=== PATIENT | male | born 1960 | race Two or more races ===

== ENCOUNTER 2024-03-03 07:00 | Outpatient (RCR) | payer MEDICAID, SELFPAY ==
[2024-02-09 08:55] LABS: Basophils % (Auto) 1 % (0-2.5); Eosinophils # (Auto) 0.1 Thou/mm3 (0.0-0.5); Eosinophils % (Auto) 1 % (0-10); Hematocrit 28.3 % (41.0-53.0); Hemoglobin 9.2 g/dL (13.5-16.0); Immature Granulocytes % (Auto) 0 % (0-0); Immature Granulocytes Auto 0.02 Thou/mm3 (0.00-0.00); Lymphocytes # (Auto) 0.8 Thou/mm3 (1.0-4.8); Lymphocytes % (Auto) 19 % (10-50); Mean Corpuscular HGB Conc 32.5 g/dl (31.0-37.0); Mean Corpuscular Volume 92 fL (80-100); Monocytes # (Auto) 0.4 Thou/mm3 (0.0-0.8); Monocytes % (Auto) 8 % (0-12); Neutrophils # (Auto) 3.2 Thou/mm3 (1.8-7.7); Neutrophils % (Auto) 71 % (37-80); Nucleated Red Blood Cell % 0 /100 WBC (0); RDW Standard Deviation 73.5 fL (35.1-43.9); Red Blood Count 3.07 Miln/mm3 (4.50-5.90); White Blood Count 4.5 Thou/mm3 (3.8-10.6)
[2024-02-09 09:02] LABS: Platelet Count 63 Thou/mm3 (140-440)
[2024-02-09 09:15] LABS: Alanine Aminotransferase 31 U/L (10-49); Albumin, Serum 4.2 gm/dL (3.4-4.8); Albumin/Globulin Ratio 1.6 (1.2-2.2); Alkaline Phosphatase 416 U/L (46-116); Anion Gap 8 (7-16); Aspartate Amino Transferase 22 U/L (0-34); BUN/Creatinine Ratio 19 Ratio (12-20); Bilirubin,Total 0.4 mg/dL (0.3-1.2); Blood Urea Nitrogen 21 mg/dL (9-23); Carbon Dioxide 23.3 mMol/L (20.0-31.0); Chloride 106 mMol/L (98-107); Creatinine (Component) 1.1 mg/dL (0.6-1.3); Globulin 2.7 gm/dL (2.3-3.5); Glucose 121 mg/dL (74-106); Osmolality,Calculated 277 (275-295); Sodium 137 mMol/L (136-145); Total Protein 6.9 gm/dL (5.7-8.2); eGFR > 60 See Note
[2024-02-09 10:26] LABS: Slide Review Platelets confirmed
[2024-02-09 10:44] LABS: LDH (Lactate Dehydrogenase) 153 U/L (120-246)
[2024-02-17 06:50] LABS: Haptoglobin* 186 mg/dL (43-212)
[2024-02-17 16:35] LABS: Basophils % (Auto) 1 % (0-2.5); Eosinophils # (Auto) 0.1 Thou/mm3 (0.0-0.5); Eosinophils % (Auto) 2 % (0-10); Hematocrit 29.4 % (41.0-53.0); Hemoglobin 9.4 g/dL (13.5-16.0); Immature Granulocytes % (Auto) 0 % (0-0); Immature Granulocytes Auto 0.01 Thou/mm3 (0.00-0.00); Lymphocytes % (Auto) 26 % (10-50); Mean Corpuscular Hemoglobin 30.4 pg (25.0-35.0); Mean Corpuscular Volume 95 fL (80-100); Monocytes # (Auto) 0.5 Thou/mm3 (0.0-0.8); Monocytes % (Auto) 13 % (0-12); Neutrophils # (Auto) 2.2 Thou/mm3 (1.8-7.7); Neutrophils % (Auto) 58 % (37-80); Nucleated Red Blood Cell % 0 /100 WBC (0); Platelet Count 192 Thou/mm3 (140-440); RDW Standard Deviation 78.8 fL (35.1-43.9); Red Blood Count 3.09 Miln/mm3 (4.50-5.90); White Blood Count 3.8 Thou/mm3 (3.8-10.6)
[2024-02-17 17:11] LABS: Alanine Aminotransferase 36 U/L (10-49); Albumin, Serum 4.3 gm/dL (3.4-4.8); Albumin/Globulin Ratio 1.6 (1.2-2.2); Alkaline Phosphatase 355 U/L (46-116); Anion Gap 5 (7-16); Aspartate Amino Transferase 30 U/L (0-34); BUN/Creatinine Ratio 17 Ratio (12-20); Bilirubin,Total 0.4 mg/dL (0.3-1.2); Blood Urea Nitrogen 17 mg/dL (9-23); Calcium 9.2 mg/dL (8.3-10.6); Calcium (Corrected) 9.2 mg/dL (8.5-10.1); Carbon Dioxide 24.6 mMol/L (20.0-31.0); Chloride 106 mMol/L (98-107); Globulin 2.7 gm/dL (2.3-3.5); Glucose 88 mg/dL (74-106); Osmolality,Calculated 272 (275-295); Potassium 4.4 mMol/L (3.4-5.1); Sodium 136 mMol/L (136-145); eGFR > 60 See Note
[2024-02-27 10:19] LABS: Basophils % (Auto) 0 % (0-2.5); Eosinophils # (Auto) 0.1 Thou/mm3 (0.0-0.5); Eosinophils % (Auto) 3 % (0-10); Hematocrit 30.7 % (41.0-53.0); Hemoglobin 10.1 g/dL (13.5-16.0); Immature Granulocytes % (Auto) 4 % (0-0); Immature Granulocytes Auto 0.17 Thou/mm3 (0.00-0.00); Lymphocytes % (Auto) 22 % (10-50); Mean Corpuscular HGB Conc 32.9 g/dl (31.0-37.0); Mean Corpuscular Hemoglobin 31.2 pg (25.0-35.0); Mean Corpuscular Volume 95 fL (80-100); Monocytes # (Auto) 0.9 Thou/mm3 (0.0-0.8); Monocytes % (Auto) 20 % (0-12); Neutrophils # (Auto) 2.3 Thou/mm3 (1.8-7.7); Neutrophils % (Auto) 50 % (37-80); Nucleated Red Blood Cell % 0 /100 WBC (0); Platelet Count 249 Thou/mm3 (140-440); RDW Standard Deviation 76.6 fL (35.1-43.9); Red Blood Count 3.24 Miln/mm3 (4.50-5.90); White Blood Count 4.5 Thou/mm3 (3.8-10.6)
[2024-02-27 10:50] LABS: Alanine Aminotransferase 55 U/L (10-49); Albumin, Serum 4.3 gm/dL (3.4-4.8); Albumin/Globulin Ratio 1.8 (1.2-2.2); Alkaline Phosphatase 324 U/L (46-116); Anion Gap 6 (7-16); Aspartate Amino Transferase 33 U/L (0-34); BUN/Creatinine Ratio 14 Ratio (12-20); Blood Urea Nitrogen 15 mg/dL (9-23); Calcium 9.2 mg/dL (8.3-10.6); Calcium (Corrected) 9.2 mg/dL (8.5-10.1); Carbon Dioxide 22.7 mMol/L (20.0-31.0); Chloride 108 mMol/L (98-107); Creatinine (Component) 1.1 mg/dL (0.6-1.3); Globulin 2.4 gm/dL (2.3-3.5); Glucose 118 mg/dL (74-106); Osmolality,Calculated 275 (275-295); Potassium 3.8 mMol/L (3.4-5.1); Sodium 137 mMol/L (136-145); Total Protein 6.7 gm/dL (5.7-8.2); eGFR > 60 See Note
[2024-02-27 14:48] LABS: Bilirubin,Total 0.4 mg/dL (0.3-1.2)
[2024-03-02 11:59] LABS: Basophils % (Auto) 1 % (0-2.5); Eosinophils # (Auto) 0.1 Thou/mm3 (0.0-0.5); Eosinophils % (Auto) 2 % (0-10); Hematocrit 30.3 % (41.0-53.0); Hemoglobin 9.9 g/dL (13.5-16.0); Immature Granulocytes % (Auto) 1 % (0-0); Immature Granulocytes Auto 0.02 Thou/mm3 (0.00-0.00); Lymphocytes # (Auto) 0.9 Thou/mm3 (1.0-4.8); Lymphocytes % (Auto) 26 % (10-50); Mean Corpuscular HGB Conc 32.7 g/dl (31.0-37.0); Mean Corpuscular Hemoglobin 31.4 pg (25.0-35.0); Mean Corpuscular Volume 96 fL (80-100); Monocytes # (Auto) 0.4 Thou/mm3 (0.0-0.8); Monocytes % (Auto) 12 % (0-12); Neutrophils % (Auto) 58 % (37-80); Nucleated Red Blood Cell % 0 /100 WBC (0); Platelet Count 218 Thou/mm3 (140-440); Red Blood Count 3.15 Miln/mm3 (4.50-5.90); White Blood Count 3.5 Thou/mm3 (3.8-10.6)
[2024-03-02 12:11] LABS: Alanine Aminotransferase 30 U/L (10-49); Albumin, Serum 4.2 gm/dL (3.4-4.8); Albumin/Globulin Ratio 1.7 (1.2-2.2); Alkaline Phosphatase 291 U/L (46-116); Anion Gap 8 (7-16); Aspartate Amino Transferase 17 U/L (0-34); BUN/Creatinine Ratio 18 Ratio (12-20); Bilirubin,Total 0.5 mg/dL (0.3-1.2); Blood Urea Nitrogen 22 mg/dL (9-23); Calcium 9.1 mg/dL (8.3-10.6); Calcium (Corrected) 9.1 mg/dL (8.5-10.1); Carbon Dioxide 23.9 mMol/L (20.0-31.0); Chloride 105 mMol/L (98-107); Creatinine (Component) 1.2 mg/dL (0.6-1.3); Globulin 2.5 gm/dL (2.3-3.5); Glucose 99 mg/dL (74-106); Osmolality,Calculated 277 (275-295); Sodium 137 mMol/L (136-145); Total Protein 6.7 gm/dL (5.7-8.2); eGFR > 60 See Note
== END 2024-03-06 23:59 | disposition home or self-care (01) ==
LOC: SCTC 07:00
PROVIDERS: PCP Family Medicine; Referring Provider Family Medicine; Visit Provider Internal Medicine Hematology & Oncology
DX: Z51.11 Encounter for antineoplastic chemotherapy (principal); C34.12 Malignant neoplasm of upper lobe, left bronchus or lung; C77.2 Secondary and unspecified malignant neoplasm of intra-abdominal lymph nodes; C79.51 Secondary malignant neoplasm of bone; C78.7 Secondary malignant neoplasm of liver and intrahepatic bile duct; R20.2 Paresthesia of skin; R20.0 Anesthesia of skin; Z92.3 Personal history of irradiation; Z87.891 Personal history of nicotine dependence
CPT/HCPCS: 36591; 80053; 83010; 83615; 85025; 96367; 96372; 96375; 96413; 96415; 96417; 99212; 99213; A4216; J0461; J1100; J1453; J1642; J2405; J3489; J3490; J7040; J7050; J9045; J9206; Q5101; A9270; G0463

== ENCOUNTER → 2024-03-10 | Outpatient (CLI) | payer MEDICAID, SELFPAY ==
--- NOTE | 2024-03-10 09:00 | XR_ITS ---
Examination: CT chest with intravenous contrast CT abdomen with intravenous contrast 2-D coronal and sagittal reconstructions Time of exam: March 10, 2024 0911 hours Comparison PET/CT scan December 04, 2023 INDICATIONS: Diagnosis lung cancer restaging post treatment, PET/CT scan December 04, 2023 10 mm 6 mm hypermetabolic masses left apex left mediastinal radiation reaction, numerous hypermetabolic liver lesions, right lobe posterior liver 28 mm anterior right liver 33 mm, 3.9 cm left adrenal mass, para-aortic pericaval lymphadenopathy CTDI: vol (mGy) : 7.55 DLP: (mGycm): 412 Technique: Multiple axial images of the chest, abdomen with intravenous contrast, 3.0 mm slice thickness. Images obtained post intravenous injection Isovue 370 60 cc. 2-D sagittal and coronal reconstructions. Low dose protocols were performed. One or more of the following dose reduction techniques were used; automated exposure control, adjustment of the mA and/or KV according to patient size, use of iterative reconstruction technique. Findings: No thoracic aortic aneurysmal dilatation No pulmonary artery emboli Radiation reaction left mediastinal region again depicted 2 mm pulmonary nodule left upper lobe Dilated bronchi in the left upper lobe 13 mm pulmonary nodule left lower lobe versus atelectasis, not seen on the prior study Trace pericardial effusion Numerous more prominent liver lesions compared to the PET CT scan Spleen is not enlarged No pancreatic mass There remains solid metastatic left adrenal mass No hydronephrosis Subcentimeter periaortic lymph nodes, the largest 8 mm Numerous osteoblastic metastatic lesions, most prominent S1, L4, L2, pathologic fracture L1, T11, T10 IMPRESSION: New 13 mm pulmonary nodule left lower lobe compared to PET CT scan July 22, 2023 Progression of liver metastatic lesions Left adrenal metastatic mass Subcentimeter periaortic lymph nodes Osteoblastic metastatic lesions including pathologic fracture L1, recommend CT scan lumbar spine without intravenous contrast follow-up
== END | disposition home or self-care (01) ==
PROVIDERS: Referring Provider Internal Medicine Hematology & Oncology; Visit Provider Internal Medicine Hematology & Oncology
DX: R91.1 Solitary pulmonary nodule (principal); C78.7 Secondary malignant neoplasm of liver and intrahepatic bile duct; C34.90 Malignant neoplasm of unspecified part of unspecified bronchus or lung
CPT/HCPCS: 71260; 74160; A4649; Q9967

== ENCOUNTER 2024-04-06 08:32 | Outpatient (RCR) | payer MEDICAID, SELFPAY ==
[2024-03-08 09:12] LABS: Basophils % (Auto) 1 % (0-2.5); Eosinophils # (Auto) 0.1 Thou/mm3 (0.0-0.5); Eosinophils % (Auto) 2 % (0-10); Hematocrit 31.7 % (41.0-53.0); Hemoglobin 10.7 g/dL (13.5-16.0); Immature Granulocytes % (Auto) 0 % (0-0); Immature Granulocytes Auto 0.01 Thou/mm3 (0.00-0.00); Lymphocytes % (Auto) 19 % (10-50); Mean Corpuscular HGB Conc 33.8 g/dl (31.0-37.0); Mean Corpuscular Hemoglobin 31.4 pg (25.0-35.0); Mean Corpuscular Volume 93 fL (80-100); Monocytes # (Auto) 0.3 Thou/mm3 (0.0-0.8); Monocytes % (Auto) 6 % (0-12); Neutrophils # (Auto) 3.7 Thou/mm3 (1.8-7.7); Neutrophils % (Auto) 72 % (37-80); Nucleated Red Blood Cell % 0 /100 WBC (0); Platelet Count 203 Thou/mm3 (140-440); RDW Standard Deviation 65.2 fL (35.1-43.9); Red Blood Count 3.41 Miln/mm3 (4.50-5.90); White Blood Count 5.2 Thou/mm3 (3.8-10.6)
[2024-03-08 09:31] LABS: Alanine Aminotransferase 35 U/L (10-49); Albumin, Serum 4.3 gm/dL (3.4-4.8); Albumin/Globulin Ratio 1.7 (1.2-2.2); Alkaline Phosphatase 253 U/L (46-116); Anion Gap 8 (7-16); Aspartate Amino Transferase 27 U/L (0-34); BUN/Creatinine Ratio 23 Ratio (12-20); Bilirubin,Total 0.5 mg/dL (0.3-1.2); Blood Urea Nitrogen 23 mg/dL (9-23); Calcium 9.6 mg/dL (8.3-10.6); Calcium (Corrected) 9.6 mg/dL (8.5-10.1); Carbon Dioxide 23.9 mMol/L (20.0-31.0); Chloride 105 mMol/L (98-107); Globulin 2.6 gm/dL (2.3-3.5); Glucose 157 mg/dL (74-106); Osmolality,Calculated 280 (275-295); Potassium 3.8 mMol/L (3.4-5.1); Sodium 137 mMol/L (136-145); Total Protein 6.9 gm/dL (5.7-8.2); eGFR > 60 See Note
[2024-03-10 14:24] LABS: Basophils % (Auto) 1 % (0-2.5); Eosinophils # (Auto) 0.1 Thou/mm3 (0.0-0.5); Eosinophils % (Auto) 2 % (0-10); Hemoglobin 9.8 g/dL (13.5-16.0); Immature Granulocytes % (Auto) 1 % (0-0); Immature Granulocytes Auto 0.02 Thou/mm3 (0.00-0.00); Lymphocytes # (Auto) 0.8 Thou/mm3 (1.0-4.8); Lymphocytes % (Auto) 20 % (10-50); Mean Corpuscular HGB Conc 33.8 g/dl (31.0-37.0); Mean Corpuscular Hemoglobin 31.5 pg (25.0-35.0); Mean Corpuscular Volume 93 fL (80-100); Monocytes # (Auto) 0.4 Thou/mm3 (0.0-0.8); Monocytes % (Auto) 10 % (0-12); Neutrophils # (Auto) 2.6 Thou/mm3 (1.8-7.7); Neutrophils % (Auto) 66 % (37-80); Nucleated Red Blood Cell % 0 /100 WBC (0); Platelet Count 203 Thou/mm3 (140-440); RDW Standard Deviation 66.4 fL (35.1-43.9); Red Blood Count 3.11 Miln/mm3 (4.50-5.90); White Blood Count 3.9 Thou/mm3 (3.8-10.6)
[2024-03-10 14:49] LABS: Alanine Aminotransferase 44 U/L (10-49); Albumin, Serum 4.3 gm/dL (3.4-4.8); Alkaline Phosphatase 236 U/L (46-116); Anion Gap 8 (7-16); Aspartate Amino Transferase 32 U/L (0-34); BUN/Creatinine Ratio 18 Ratio (12-20); Bilirubin,Total 0.4 mg/dL (0.3-1.2); Blood Urea Nitrogen 16 mg/dL (9-23); Calcium 8.6 mg/dL (8.3-10.6); Calcium (Corrected) 8.6 mg/dL (8.5-10.1); Carbon Dioxide 22.7 mMol/L (20.0-31.0); Chloride 103 mMol/L (98-107); Creatinine (Component) 0.9 mg/dL (0.6-1.3); Globulin 2.2 gm/dL (2.3-3.5); Glucose 80 mg/dL (74-106); Osmolality,Calculated 268 (275-295); Potassium 3.8 mMol/L (3.4-5.1); Sodium 134 mMol/L (136-145); Total Protein 6.5 gm/dL (5.7-8.2); eGFR > 60 See Note
[2024-03-15 11:10] LABS: Basophils # (Auto) 0.1 Thou/mm3 (0.0-0.2); Basophils % (Auto) 1 % (0-2.5); Eosinophils # (Auto) 0.2 Thou/mm3 (0.0-0.5); Eosinophils % (Auto) 2 % (0-10); Hematocrit 32.2 % (41.0-53.0); Hemoglobin 10.6 g/dL (13.5-16.0); Immature Granulocytes % (Auto) 1 % (0-0); Immature Granulocytes Auto 0.06 Thou/mm3 (0.00-0.00); Lymphocytes # (Auto) 0.9 Thou/mm3 (1.0-4.8); Lymphocytes % (Auto) 13 % (10-50); Mean Corpuscular HGB Conc 32.9 g/dl (31.0-37.0); Mean Corpuscular Volume 97 fL (80-100); Monocytes # (Auto) 0.4 Thou/mm3 (0.0-0.8); Monocytes % (Auto) 6 % (0-12); Neutrophils # (Auto) 5.6 Thou/mm3 (1.8-7.7); Neutrophils % (Auto) 78 % (37-80); Nucleated Red Blood Cell % 0 /100 WBC (0); Platelet Count 195 Thou/mm3 (140-440); Red Blood Count 3.31 Miln/mm3 (4.50-5.90); White Blood Count 7.1 Thou/mm3 (3.8-10.6)
[2024-03-15 11:16] LABS: Alanine Aminotransferase 45 U/L (10-49); Albumin, Serum 4.3 gm/dL (3.4-4.8); Alkaline Phosphatase 231 U/L (46-116); Anion Gap 7 (7-16); Aspartate Amino Transferase 24 U/L (0-34); BUN/Creatinine Ratio 15 Ratio (12-20); Bilirubin,Total 0.4 mg/dL (0.3-1.2); Blood Urea Nitrogen 17 mg/dL (9-23); Calcium 8.9 mg/dL (8.3-10.6); Calcium (Corrected) 8.9 mg/dL (8.5-10.1); Carbon Dioxide 24.4 mMol/L (20.0-31.0); Chloride 105 mMol/L (98-107); Creatinine (Component) 1.1 mg/dL (0.6-1.3); Globulin 2.2 gm/dL (2.3-3.5); Glucose 174 mg/dL (74-106); Osmolality,Calculated 277 (275-295); Sodium 136 mMol/L (136-145); Total Protein 6.5 gm/dL (5.7-8.2); eGFR > 60 See Note
[2024-03-17 10:01] LABS: Basophils % (Auto) 1 % (0-2.5); Eosinophils # (Auto) 0.1 Thou/mm3 (0.0-0.5); Eosinophils % (Auto) 4 % (0-10); Hematocrit 32.3 % (41.0-53.0); Hemoglobin 10.7 g/dL (13.5-16.0); Immature Granulocytes % (Auto) 0 % (0-0); Immature Granulocytes Auto 0.01 Thou/mm3 (0.00-0.00); Lymphocytes # (Auto) 0.8 Thou/mm3 (1.0-4.8); Lymphocytes % (Auto) 27 % (10-50); Mean Corpuscular HGB Conc 33.1 g/dl (31.0-37.0); Mean Corpuscular Volume 97 fL (80-100); Monocytes # (Auto) 0.5 Thou/mm3 (0.0-0.8); Monocytes % (Auto) 16 % (0-12); Neutrophils # (Auto) 1.5 Thou/mm3 (1.8-7.7); Neutrophils % (Auto) 52 % (37-80); Nucleated Red Blood Cell % 0 /100 WBC (0); Platelet Count 173 Thou/mm3 (140-440); RDW Standard Deviation 69.9 fL (35.1-43.9); Red Blood Count 3.34 Miln/mm3 (4.50-5.90)
[2024-03-17 10:23] LABS: Alanine Aminotransferase 51 U/L (10-49); Albumin, Serum 4.4 gm/dL (3.4-4.8); Albumin/Globulin Ratio 1.9 (1.2-2.2); Alkaline Phosphatase 239 U/L (46-116); Anion Gap 9 (7-16); Aspartate Amino Transferase 17 U/L (0-34); BUN/Creatinine Ratio 15 Ratio (12-20); Bilirubin,Total 0.4 mg/dL (0.3-1.2); Blood Urea Nitrogen 17 mg/dL (9-23); Calcium 9.1 mg/dL (8.3-10.6); Calcium (Corrected) 9.1 mg/dL (8.5-10.1); Carbon Dioxide 24.2 mMol/L (20.0-31.0); Chloride 105 mMol/L (98-107); Creatinine (Component) 1.1 mg/dL (0.6-1.3); Globulin 2.3 gm/dL (2.3-3.5); Glucose 168 mg/dL (74-106); Osmolality,Calculated 281 (275-295); Potassium 3.8 mMol/L (3.4-5.1); Sodium 138 mMol/L (136-145); Total Protein 6.7 gm/dL (5.7-8.2); eGFR > 60 See Note
[2024-03-17 10:24] LABS: White Blood Count 2.9 Thou/mm3 (3.8-10.6)
--- NOTE | 2024-04-04 23:13 | CTCFLWUP_ITS ---
Patient: ELLE MAYA : 1960 Page 5 of 7 FOLLOW UP NOTE DATE OF SERVICE: 03/25/2024 NAME: ELLE MAYA ACCOUNT: [id number] : 1960 AGE: 63 INTERVAL HISTORY: Patient doing well patient receiving radiation with Dr. Ugarte to his lumbar spine for symptomatic contr ol of his pain. Patient was called as a walk-in to go over the CT scan results. 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 September 2022: Patient was diagnosed with community-acquired pneumonia in [place]. Treated with antibiotic s. 10/31/2022: Mr. Maya had a bronchoscopy done in [place] due to persistent pneumonia. 11/07/2022: 11/19/2022: MRI of the brain with and without contrast 12/05/2022: PET/CT scan 01/01/2023: Patient had first cycle of cisplatin and 3 days of etoposide. 12/30/2022 - 02/10/2023: Mr. Maya had 5400 cGy radiation along with chemotherapy 01/22/2023: Mr. Maya had second cycle of cisplatin and 1 day of etoposide. 02/12/2023: Mr. Maya had third cycle of cisplatin 03/17/2023: Mr. Maya had fourth cycle of cisplatin 04/18/2023: PET/CT scan? 07/22/2023: PET/CT scan? 11/28/2023: CT scan of the abdomen and pelvis with IV contrast 12/01/2023: MRI of the lumbar spine without contrast MRI brain 02/03/2024 shows no metastatic disease in the brain Ct chest 03/10/2024 OTHER MEDICAL HISTORY/CONDITIONS: Small cell lung cancer - recently diagnosed Denies FAMILY HISTORY: Father:?2006?LUNG?CANCER,??2009 Sibling:?SISTER?BREAST?CA Cancer History:?PATERNAL UNCLE, PROSTATE CA SOCIAL HISTORY: Occupational?History:?RETIRED Education?Level:?College Graduate, 2 year degree Marital?Status:? Tobacco?Pack?per?Day:?1 Tobacco?Use?Years:?45 Tobacco?Use:?STOPPED?3?MO?AGO ETOH?Use:?SOCIAL?DRINKER Drug?Note:?Denies Social?History?Note:?Lives?with?son MEDICATIONS: 1. morphine - 30 mg 1 Capsule three times a day 2. OLANZapine - 2.5 mg 1 tab Daily 3. senna - 8.6 mg 2 tab twice a day Medications Last Reconciled by Makenna Silva MA on 03/25/2024 ALLERGIES: No Known Drug Allergies REVIEW OF SYSTEMS: A complete 14-point review of systems was performed and is negative except as noted in interval histo ry. PHYSICAL EXAMINATION: VITAL SIGNS: Temperature?98, B/P?97/74, Oxygen?Saturation?96% Weight?154?lbs (Change?since?03/22/24:? -0.8?lbs) PAIN: 3 - Between mild and moderate pain EYE: Conjunctivae is white MOUTH: Oral cavity is dry. CHEST: Clear to auscultation. No wheezes or rales audible. CARDIAC: Rhythm regular, no murmurs or gallops present. ABDOMEN: Soft. No hepatomegaly. No splenomegaly. EXTREMITIES: No pedal edema or cyanosis. LABORATORY DATA: I have personally reviewed and interpreted each of the patient?s relevant lab tests, abnormal finding s are below: Date 03/17/24 ??GLUCOSE,RANDOM?(mg/dL) 168?H ??BLOOD?UREA?NITROGEN?(mg/dL) 17 ??CREATININE?(mg/dL) 1.10 ??SODIUM?(mmol/L) 138 ??POTASSIUM?(mmol/L) 3.8 ??CHLORIDE?(mmol/L) 105 ??CrCl?(CandG)?(ml/min) 67.47 ??AST/SGOT?(Unit/L) 17 ??ALT/SGPT?(Unit/L) 51?H ??ALKALINE?PHOSPHATASE?(Unit/L) 239?H ??BILIRUBIN,?TOTAL?(mg/dL) 0.4 ??PROTEIN?TOTAL?(gm/dl) 6.7 ??ALBUMIN,?SERUM?(gm/dl) 4.4 ??GLOBULIN?(gm/dl) 2.3 ??ALBUMIN/GLOBULIN?RATIO 1.9 ??CALCIUM,?SERUM?(mg/dL) 9.1 ??CALCIUM?SERUM?(CORRECTED)?(mg/dL) 9.1 ASSESSMENT/PLAN: Small cell lung cancer extensive stage-recurrence of the cancer Patient with 45-year pack smoking hi story Patient initially had limited stage disease S/p chemoradiation 12/30/2022 - 02/10/2023: Mr. Maya r eceived 5400 cGy radiation therapy along with cisplatin and etoposide. Mr. Maya had 4 cycles of cisplatin and etoposide (01/01/2023 - 03/17/2023) PET/CT scan (07/22/2023 showe d improvement p Patient had MRI brain and was negative Patient did not receive any prophylactic radia tion Patient started having back pain in August 2023 CT scan of the abdomen showed extensive hepatic met astasis as well as pericaval lymphadenopathy (11/28/2023). MRI of the lumbar spine showed osseous metastasis as documented above (12/01/2023) Mr. Maya has mild ti ngling and numbness most likely secondary to cisplatin. He is clinically doing well without any significant complaints. As per patient's deputy county counsel note the aortic window lymph node was also positive for small cell car cinoma. MRI of the brain negative for metastatic disease. Will continue chemotherapy Will get CT chest to evaluate if patient is progressing and cancer is caus ing worsening of his cough CT chest with IV contrast ordered Will give Tessalon pearls Flonase and az ithromycin for cough and possible bronchitis Addendum -03/14/2024--CT scan completed on 03/10/24 review ed and shows progression of disease. Patient needs change of chemotherapy. Discussed with patient that I would like to change treatment to lurbinectedin Treatment change will be made by the next treatment CBC CMP MRI brain New chemotherapy orders placed RETURN TO CLINIC: 4 to 6 weeks BILLING AND COMPLIANCE: I reviewed external records from providers outside my specialty as summarized above. I spent a total of 50 minutes on this patient?s care on the day of their visit excluding time spent related to any bi lled procedures. This time includes time spent with the patient as well as time spent documenting in the medical record, reviewing patients records and tests, obtaining history, placing orders, communi cating with other healthcare professionals, counseling the patient, family or caregiver, and/or care coordination for the diagnoses above. Electronically Signed by: Rizwan Rutledge MD T: 11:11 PM CC: PCP: Guy Ramon Referring: Guy Ramon This document was completed utilizing speech recognition software. Grammatical errors, random word in sertions, pronoun errors, and incomplete sentences are an occasional consequence of this system due t o software limitations, ambient noise, and hardware issues. Any formal questions or concerns about th e content, text or information contained within the body of this dictation should be directly address ed to the provider for clarification.
[2024-04-05 08:29] LABS: Basophils % (Auto) 1 % (0-2.5); Eosinophils # (Auto) 0.1 Thou/mm3 (0.0-0.5); Eosinophils % (Auto) 3 % (0-10); Hematocrit 34.8 % (41.0-53.0); Hemoglobin 11.6 g/dL (13.5-16.0); Immature Granulocytes % (Auto) 0 % (0-0); Lymphocytes # (Auto) 1.1 Thou/mm3 (1.0-4.8); Lymphocytes % (Auto) 28 % (10-50); Mean Corpuscular HGB Conc 33.3 g/dl (31.0-37.0); Mean Corpuscular Hemoglobin 32.6 pg (25.0-35.0); Mean Corpuscular Volume 98 fL (80-100); Monocytes # (Auto) 0.5 Thou/mm3 (0.0-0.8); Monocytes % (Auto) 12 % (0-12); Neutrophils # (Auto) 2.2 Thou/mm3 (1.8-7.7); Neutrophils % (Auto) 57 % (37-80); Nucleated Red Blood Cell % 0 /100 WBC (0); Platelet Count 221 Thou/mm3 (140-440); Red Blood Count 3.56 Miln/mm3 (4.50-5.90); White Blood Count 3.9 Thou/mm3 (3.8-10.6)
[2024-04-05 08:55] LABS: Alanine Aminotransferase 31 U/L (10-49); Albumin, Serum 4.4 gm/dL (3.4-4.8); Albumin/Globulin Ratio 1.9 (1.2-2.2); Alkaline Phosphatase 182 U/L (46-116); Anion Gap 10 (7-16); Aspartate Amino Transferase 26 U/L (0-34); BUN/Creatinine Ratio 16 Ratio (12-20); Bilirubin,Total 0.5 mg/dL (0.3-1.2); Blood Urea Nitrogen 18 mg/dL (9-23); Calcium 9.9 mg/dL (8.3-10.6); Calcium (Corrected) 9.9 mg/dL (8.5-10.1); Carbon Dioxide 24.4 mMol/L (20.0-31.0); Chloride 108 mMol/L (98-107); Creatinine (Component) 1.1 mg/dL (0.6-1.3); Globulin 2.3 gm/dL (2.3-3.5); Glucose 154 mg/dL (74-106); Osmolality,Calculated 288 (275-295); Potassium 3.7 mMol/L (3.4-5.1); Sodium 142 mMol/L (136-145); Total Protein 6.7 gm/dL (5.7-8.2); eGFR > 60 See Note
== END 2024-04-06 23:59 | disposition home or self-care (01) ==
LOC: SCTC 08:32
PROVIDERS: PCP Family Medicine; Referring Provider Internal Medicine Hematology & Oncology; Visit Provider Internal Medicine Hematology & Oncology
DX: Z51.11 Encounter for antineoplastic chemotherapy (principal); C34.12 Malignant neoplasm of upper lobe, left bronchus or lung; C79.51 Secondary malignant neoplasm of bone; C78.7 Secondary malignant neoplasm of liver and intrahepatic bile duct; C77.2 Secondary and unspecified malignant neoplasm of intra-abdominal lymph nodes; Z87.891 Personal history of nicotine dependence
CPT/HCPCS: 36591; 80053; 85025; 96367; 96372; 96375; 96413; 96415; 96417; 99213; A4216; J0461; J1100; J1200; J1453; J1642; J2405; J3489; J7040; J7050; J9045; J9206; Q3014; Q5101; A9270; G0463

== ENCOUNTER 2024-05-05 10:04 | Outpatient (RCR) | payer MEDICAID, SELFPAY ==
--- NOTE | 2024-04-26 21:08 | CTCFLWUP_ITS ---
Patient: ELLE MAYA : 1960 Page 5 of 7 FOLLOW UP NOTE DATE OF SERVICE: 04/26/2024 NAME: ELLE MAYA ACCOUNT: [id number] : 1960 AGE: 63 INTERVAL HISTORY: Patient doing well patient receiving radiation with Dr. Ugarte to his lumbar spine for symptomatic contr ol of his pain. Patient is scheduled to start new chemotherapy with lubrinectidin. 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 DATE OF DIAGNOSIS: 10/31/2022 as a limited stage small cell lung cancer July 2023 as advanced stage small cell lung cancer STAGE/TNM: Advanced stage small cell lung cancer on second line therapy TREATMENT HISTORY: Care?Plan Start?Date Cycle Day Intent CISplatin?75?mg/m*2,?Etoposide?with?XRT?for?limited?small?cell?lung?ca 01/01/2023 1 21 Curative?(primary) carboplatin?and?irinotecan 12/15/2023 1 28 Palliative zometa?q?30?days,?q?90?days?for?bone?mets 12/15/2023 1 90 Palliative Lurbinectedin 04/12/2024 1 21 Palliative HISTORY OF PRESENT ILLNESS: Elle Maya is a 63-year-old CARLOS speaking Other male following oncology history. September 2022: Patient was diagnosed with community-acquired pneumonia in [place]. Treated with antibiotic s. 10/31/2022: Mr. Maya had a bronchoscopy done in [place] due to persistent pneumonia. 11/07/2022: 11/19/2022: MRI of the brain with and without contrast 12/05/2022: PET/CT scan 01/01/2023: Patient had first cycle of cisplatin and 3 days of etoposide. 12/30/2022 - 02/10/2023: Mr. Maya had 5400 cGy radiation along with chemotherapy 01/22/2023: Mr. Maya had second cycle of cisplatin and 1 day of etoposide. 02/12/2023: Mr. Maya had third cycle of cisplatin 03/17/2023: Mr. Maya had fourth cycle of cisplatin 04/18/2023: PET/CT scan? 07/22/2023: PET/CT scan? 11/28/2023: CT scan of the abdomen and pelvis with IV contrast 12/01/2023: MRI of the lumbar spine without contrast MRI brain 02/03/2024 shows no metastatic disease in the brain Ct chest 03/10/2024 OTHER MEDICAL HISTORY/CONDITIONS: Small cell lung cancer - recently diagnosed Denies FAMILY HISTORY: Father:?2006?LUNG?CANCER,??2009 Sibling:?SISTER?BREAST?CA Cancer History:?PATERNAL UNCLE, PROSTATE CA SOCIAL HISTORY: Occupational?History:?RETIRED Education?Level:?College Graduate, 2 year degree Marital?Status:? Tobacco?Pack?per?Day:?1 Tobacco?Use?Years:?45 Tobacco?Use:?STOPPED?3?MO?AGO ETOH?Use:?SOCIAL?DRINKER Drug?Note:?Denies Social?History?Note:?Lives?with?son MEDICATIONS: 1. dexamethasone - 4 mg 2 tab daily for 2 days after each chemotherapy 2. morphine - 30 mg 1 Capsule three times a day 3. OLANZapine - 2.5 mg 1 tab Daily 4. ondansetron HCl - 8 mg 1 tab every 8 hours as needed for nausea 5. senna - 8.6 mg 2 tab twice a day Medications Last Reconciled by Makenna Silva MA on 04/26/2024 ALLERGIES: No Known Drug Allergies REVIEW OF SYSTEMS: A complete 14-point review of systems was performed and is negative except as noted in interval histo ry. PHYSICAL EXAMINATION: VITAL SIGNS: Temperature?97.9, B/P?95/67, Oxygen?Saturation?100% Weight?164.4?lbs (Change?since? 5:?2.6?lbs) PAIN: 5 - Between moderate and severe pain ECOG Performance Status: 1 - Symptomatic; ambulatory; restricted in strenuous activity EYE: Conjunctivae is white MOUTH: Oral cavity is moist . LABORATORY DATA: I have personally reviewed and interpreted each of the patient?s relevant lab tests, abnormal finding s are below: Date 04/05/24 ??WHITE?BLOOD?COUNT?(Thou/mm3) 3.9 ??RED?BLOOD?COUNT?(Miln/mm3) 3.56?L ??HEMOGLOBIN?(gm/dl) 11.6?L ??HEMATOCRIT?(%) 34.8?L ??PLATELET?COUNT?(Thou/mm3) 221 ??NEUTROPHILS?%,?AUTO?(%) 57 ??LYMPH?%,?AUTO?(%) 28 ??NEUTROPHILS,?AUTO?(Thou/mm3) 2.2 ASSESSMENT/PLAN: Small cell lung cancer extensive stage-recurrence of the cancer Patient with 45-year pack smoking history Patient initially had limited stage disease S/p chemoradia tion 12/30/2022 - 02/10/2023: Mr. Maya received 5400 cGy radiation therapy along with cisplatin and etop oside. Mr. Maya had 4 cycles of cisplatin and etoposide (01/01/2023 - 03/17/2023) PET/CT scan (07/22/2023 showe d improvement p Patient had MRI brain and was negative Patient did not receive any prophylactic radia tion Patient started having back pain in August 2023 CT scan of the abdomen showed extensive hepatic met astasis as well as pericaval lymphadenopathy (11/28/2023). MRI of the lumbar spine showed osseous metastasis as documented above (12/01/2023) Mr. Maya has mild ti ngling and numbness most likely secondary to cisplatin. He is clinically doing well without any significant complaints. As per patient's associate relations specialist note the aortic window lymph node was also positive for small cell car cinoma. MRI of the brain negative for metastatic disease. Will continue chemotherapy Will get CT chest to evaluate if patient is progressing and cancer is causing worsening of his cough CT chest with IV contrast ordered Will give Tessalon pearls Flonase and azithromycin for cough and po ssible bronchitis Addendum -03/14/2024--CT scan completed on 03/10/24 reviewed and shows progression of disease. Patient needs change of chemotherapy. Discussed with patient that I would like to change treatment to lurbinectedin Treatment change cesar CBC CMP MRI brain New chemotherapy orders placed Patient s CT scan was not compared to the last scan . will repeat pet scan as per radiologist request and brain mri Patient is getting radiation to spine and 7 more treatments remaining. Will start chemotherapy now Clinically patient is doing well and still gaining weight Back pain is still persistant and hopefully will get better with radiation ORDERS: Cbc,cmp,pet scan and mri brain RETURN TO CLINIC: 4-6 weeks BILLING AND COMPLIANCE: I reviewed external records from providers outside my specialty as summarized above. I spent a total of 50 minutes on this patient?s care on the day of their visit excluding time spent related to any bi lled procedures. This time includes time spent with the patient as well as time spent documenting in the medical record, reviewing patients records and tests, obtaining history, placing orders, communi cating with other healthcare professionals, counseling the patient, family or caregiver, and/or care coordination for the diagnoses above. Electronically Signed by: Rizwan Rutledge MD T: 9:06 PM CC: PCP: Guy Ramon Referring: Guy Ramon This document was completed utilizing speech recognition software. Grammatical errors, random word in sertions, pronoun errors, and incomplete sentences are an occasional consequence of this system due t o software limitations, ambient noise, and hardware issues. Any formal questions or concerns about th e content, text or information contained within the body of this dictation should be directly address ed to the provider for clarification.
[2024-04-27 14:21] LABS: Basophils % (Auto) 1 % (0-2.5); Eosinophils # (Auto) 0.1 Thou/mm3 (0.0-0.5); Eosinophils % (Auto) 2 % (0-10); Hematocrit 33.8 % (41.0-53.0); Hemoglobin 11.3 g/dL (13.5-16.0); Immature Granulocytes % (Auto) 0 % (0-0); Immature Granulocytes Auto 0.01 Thou/mm3 (0.00-0.00); Lymphocytes # (Auto) 0.6 Thou/mm3 (1.0-4.8); Lymphocytes % (Auto) 22 % (10-50); Mean Corpuscular HGB Conc 33.4 g/dl (31.0-37.0); Mean Corpuscular Hemoglobin 33.1 pg (25.0-35.0); Mean Corpuscular Volume 99 fL (80-100); Monocytes # (Auto) 0.4 Thou/mm3 (0.0-0.8); Monocytes % (Auto) 15 % (0-12); Neutrophils # (Auto) 1.8 Thou/mm3 (1.8-7.7); Neutrophils % (Auto) 61 % (37-80); Nucleated Red Blood Cell % 0 /100 WBC (0); Platelet Count 89 Thou/mm3 (140-440); RDW Standard Deviation 59.8 fL (35.1-43.9); Red Blood Count 3.41 Miln/mm3 (4.50-5.90)
[2024-04-27 14:54] LABS: Alanine Aminotransferase 29 U/L (10-49); Albumin, Serum 4.4 gm/dL (3.4-4.8); Albumin/Globulin Ratio 1.7 (1.2-2.2); Alkaline Phosphatase 160 U/L (46-116); Anion Gap 12 (7-16); Aspartate Amino Transferase 20 U/L (0-34); BUN/Creatinine Ratio 19 Ratio (12-20); Bilirubin,Total 0.6 mg/dL (0.3-1.2); Blood Urea Nitrogen 23 mg/dL (9-23); Calcium 9.4 mg/dL (8.3-10.6); Calcium (Corrected) 9.4 mg/dL (8.5-10.1); Carbon Dioxide 23.3 mMol/L (20.0-31.0); Chloride 104 mMol/L (98-107); Creatinine (Component) 1.2 mg/dL (0.6-1.3); Globulin 2.6 gm/dL (2.3-3.5); Glucose 172 mg/dL (74-106); Osmolality,Calculated 285 (275-295); Potassium 3.6 mMol/L (3.4-5.1); Sodium 139 mMol/L (136-145); eGFR > 60 See Note
[2024-04-27 15:15] LABS: White Blood Count 2.9 Thou/mm3 (3.8-10.6)
== END 2024-05-07 23:59 | disposition home or self-care (01) ==
LOC: SCTC 10:04
PROVIDERS: Referring Provider Family Medicine; Visit Provider Internal Medicine Hematology & Oncology
DX: Z51.0 Encounter for antineoplastic radiation therapy (principal); Z51.11 Encounter for antineoplastic chemotherapy; C34.12 Malignant neoplasm of upper lobe, left bronchus or lung; C79.51 Secondary malignant neoplasm of bone; G89.3 Neoplasm related pain (acute) (chronic)
CPT/HCPCS: 36591; 77014; 77290; 77300; 77301; 77334; 77336; 77338; 77385; 80053; 85025; 96367; 96372; 96413; A4216; J1100; J1642; J2405; J7040; J7050; J9223; Q3014; Q5101

== ENCOUNTER → 2024-05-25 | Outpatient (CLI) | payer MEDICAID, SELFPAY ==
--- NOTE | 2024-05-25 07:45 | XR_ITS ---
Examination: MRI brain with intravenous contrast TECHNIQUE: Multiple axial sagittal coronal brain MRI images post intravenous administration 14 cc gadolinium Exam date and time: May 25, 2024 0744 hours Comparison February 03, 2024 INDICATIONS: Diagnosis malignant neoplasm of unspecified part of unspecified bronchus or lung, secondary malignant neoplasm bone, staging FINDINGS: Ventricles are normal in size No effacement of the cortical sulcal markings No ventricular midline shift No abnormal enhancing cerebellar or cerebral lesions Pituitary is not enlarged IMPRESSION: No abnormal enhancing cerebellar or cerebral lesions
== END | disposition home or self-care (01) ==
LOC: SMRI 07:30
PROVIDERS: Referring Provider Internal Medicine Hematology & Oncology; Visit Provider Internal Medicine Hematology & Oncology
DX: C34.90 Malignant neoplasm of unspecified part of unspecified bronchus or lung (principal); C79.51 Secondary malignant neoplasm of bone
CPT/HCPCS: 70552; A9579

== ENCOUNTER 2024-05-27 13:28 | Outpatient (RCR) | payer MEDICAID, SELFPAY ==
[2024-05-18 09:22] LABS: Basophils % (Auto) 1 % (0-2.5); Eosinophils % (Auto) 1 % (0-10); Hematocrit 29.7 % (41.0-53.0); Hemoglobin 10.1 g/dL (13.5-16.0); Immature Granulocytes % (Auto) 3 % (0-0); Immature Granulocytes Auto 0.08 Thou/mm3 (0.00-0.00); Lymphocytes # (Auto) 0.6 Thou/mm3 (1.0-4.8); Lymphocytes % (Auto) 19 % (10-50); Mean Corpuscular Hemoglobin 33.6 pg (25.0-35.0); Mean Corpuscular Volume 99 fL (80-100); Monocytes # (Auto) 0.9 Thou/mm3 (0.0-0.8); Monocytes % (Auto) 28 % (0-12); Neutrophils # (Auto) 1.5 Thou/mm3 (1.8-7.7); Neutrophils % (Auto) 48 % (37-80); Nucleated Red Blood Cell # 0.02 Thou/mm3 (0.00-0.00); Nucleated Red Blood Cell % 1 /100 WBC (0); Platelet Count 315 Thou/mm3 (140-440); RDW Standard Deviation 55.4 fL (35.1-43.9); Red Blood Count 3.01 Miln/mm3 (4.50-5.90); White Blood Count 3.1 Thou/mm3 (3.8-10.6)
[2024-05-18 09:39] LABS: Alanine Aminotransferase 28 U/L (10-49); Albumin, Serum 4.1 gm/dL (3.4-4.8); Albumin/Globulin Ratio 1.5 (1.2-2.2); Alkaline Phosphatase 156 U/L (46-116); Anion Gap 9 (7-16); Aspartate Amino Transferase 22 U/L (0-34); BUN/Creatinine Ratio 12 Ratio (12-20); Bilirubin,Total 0.5 mg/dL (0.3-1.2); Blood Urea Nitrogen 14 mg/dL (9-23); Calcium 9.6 mg/dL (8.3-10.6); Calcium (Corrected) 9.6 mg/dL (8.5-10.1); Carbon Dioxide 24.4 mMol/L (20.0-31.0); Chloride 110 mMol/L (98-107); Creatinine (Component) 1.2 mg/dL (0.6-1.3); Globulin 2.7 gm/dL (2.3-3.5); Glucose 134 mg/dL (74-106); Osmolality,Calculated 287 (275-295); Sodium 143 mMol/L (136-145); Total Protein 6.8 gm/dL (5.7-8.2); eGFR > 60 See Note
[2024-05-18 12:17] LABS: Path Review Blood Smear Sent to Pathologist
== END 2024-06-04 23:59 | disposition home or self-care (01) ==
LOC: SCTC 13:28
PROVIDERS: Referring Provider Internal Medicine Hematology & Oncology; Visit Provider Radiology Therapeutic Radiology
DX: Z51.11 Encounter for antineoplastic chemotherapy (principal); C34.90 Malignant neoplasm of unspecified part of unspecified bronchus or lung; C79.51 Secondary malignant neoplasm of bone
CPT/HCPCS: 36591; 80053; 85025; 96365; 96367; 96413; 99212; A4216; J1100; J1642; J2405; J3489; J7040; J7050; J9223; G0463

== ENCOUNTER → 2024-05-31 | Outpatient (CLI) | payer MEDICAID, SELFPAY ==
--- NOTE | 2024-05-31 08:45 | XR_ITS ---
EXAMINATION: PET/CT FUSION SKULL TO THIGH EXAM DATE AND TIME: May 31, 2024 0922 hrs. Comparison December 04, 2023 Indications: Diagnosis lung cancer post treatment restaging CTDI:vol (mGy) 4.76 DLP: (mGycm) 434.37 PROCEDURE: 16.79 mCi FDG was administered intravenously To allow for distribution and uptake of radiotracer, the patient was allowed to rest quietly in a shielded room. Imaging was performed on an integrated 16-slice PET/CT scanner, with scanning from the skull base to the mid thigh. Serum blood glucose at the time of the injection was measured 95 mg/dL. CT scanning was performed without oral or intravenous contrast material. FINDINGS: Head and Neck: There is no naif hypermetabolism in the neck. The visualized portions of the brain are normal in appearance on CT. Chest: Stable non hypermetabolic pulmonary scarring in the left upper lobe and posterior left lung No interval hypermetabolic pulmonary nodules Abdomen and Pelvis: There is no naif hypermetabolism in retroperitoneal or pelvic chains. The spleen is normal in size and FDG avidity. Left adrenal mass is no longer identified Musculoskeletal: Significant progression of osteoblastic metastatic disease, extensively involving thoracic lumbar vertebral bodies bilateral ribs bones of the pelvis sacral segments hips, no pathologic fracture IMPRESSION: Stable non hypermetabolic pulmonary scarring in the left lung, no interval hypermetabolic pulmonary nodules No current adrenal mass Marked progression of widespread osteoblastic metastatic disease
== END | disposition home or self-care (01) ==
LOC: CDIM 08:22
PROVIDERS: Referring Provider Internal Medicine Hematology & Oncology; Visit Provider Internal Medicine Hematology & Oncology
DX: R91.8 Other nonspecific abnormal finding of lung field (principal); C79.9 Secondary malignant neoplasm of unspecified site; C34.90 Malignant neoplasm of unspecified part of unspecified bronchus or lung; C79.51 Secondary malignant neoplasm of bone
CPT/HCPCS: 78815; A9552

== ENCOUNTER → 2024-06-07 | Outpatient (CLI) | payer MEDICAID, SELFPAY ==
--- NOTE | 2024-06-07 12:32 | XR_ITS ---
Examination: CT chest with intravenous contrast CT abdomen with intravenous contrast CT pelvis with intravenous contrast CT chest without intravenous contrast CT abdomen without intravenous contrast CT pelvis without intravenous contrast 2-D coronal and sagittal reconstructions Time of exam: June 07, 2024 1239 hours Comparison PET/CT scan May 31, 2024 INDICATIONS: Lung carcinoma diagnosis 2022, restaging, CTDI: vol (mGy) : 12.4 DLP: (mGycm): 661 Technique: Multiple axial images of the chest, abdomen and pelvis with intravenous contrast, 3.0 mm slice thickness. Images obtained pre and post intravenous injection Isovue 370 60 cc. 2-D sagittal and coronal reconstructions. Low dose protocols were performed. One or more of the following dose reduction techniques were used; automated exposure control, adjustment of the mA and/or KV according to patient size, use of iterative reconstruction technique. Findings: No thoracic aortic aneurysmal dilatation No paratracheal tracheobronchial or bronchopulmonary adenopathy Stable dilated bronchi in the left upper lobe and minor linear scarring left base No interval pulmonary nodules No focal liver or splenic lesions No pancreatic mass 8 mm left lateral periaortic lymph node Normal appendix No bowel obstruction Widespread osteoblastic metastatic disease with chronic pathologic fracture L1 stable compared with March 10, 2024 IMPRESSION: No interval metastatic disease in the chest 8 mm left lateral periaortic lymph node, suggest 6 month follow-up CT abdomen pelvis Widespread osteoblastic metastatic disease
== END | disposition home or self-care (01) ==
PROVIDERS: Referring Provider Internal Medicine Hematology & Oncology; Visit Provider Internal Medicine Hematology & Oncology
DX: C79.9 Secondary malignant neoplasm of unspecified site (principal); C34.90 Malignant neoplasm of unspecified part of unspecified bronchus or lung
CPT/HCPCS: 71270; 74178; A4649; Q9967

== ENCOUNTER 2024-06-30 08:28 | Outpatient (RCR) | payer MEDICAID, SELFPAY ==
[2024-06-08 09:05] LABS: Basophils % (Auto) 1 % (0-2.5); Eosinophils % (Auto) 1 % (0-10); Hematocrit 31.1 % (41.0-53.0); Hemoglobin 10.4 g/dL (13.5-16.0); Immature Granulocytes % (Auto) 2 % (0-0); Immature Granulocytes Auto 0.08 Thou/mm3 (0.00-0.00); Lymphocytes # (Auto) 0.6 Thou/mm3 (1.0-4.8); Lymphocytes % (Auto) 13 % (10-50); Mean Corpuscular HGB Conc 33.4 g/dl (31.0-37.0); Mean Corpuscular Hemoglobin 33.2 pg (25.0-35.0); Mean Corpuscular Volume 99 fL (80-100); Monocytes # (Auto) 0.9 Thou/mm3 (0.0-0.8); Monocytes % (Auto) 21 % (0-12); Neutrophils # (Auto) 2.8 Thou/mm3 (1.8-7.7); Neutrophils % (Auto) 63 % (37-80); Nucleated Red Blood Cell % 0 /100 WBC (0); Platelet Count 198 Thou/mm3 (140-440); RDW Standard Deviation 63.1 fL (35.1-43.9); Red Blood Count 3.13 Miln/mm3 (4.50-5.90); White Blood Count 4.5 Thou/mm3 (3.8-10.6)
[2024-06-08 09:32] LABS: Alanine Aminotransferase 43 U/L (10-49); Albumin/Globulin Ratio 1.6 (1.2-2.2); Alkaline Phosphatase 139 U/L (46-116); Anion Gap 9 (7-16); Aspartate Amino Transferase 16 U/L (0-34); BUN/Creatinine Ratio 16 Ratio (12-20); Bilirubin,Total 0.6 mg/dL (0.3-1.2); Blood Urea Nitrogen 18 mg/dL (9-23); Carbon Dioxide 24.5 mMol/L (20.0-31.0); Chloride 106 mMol/L (98-107); Creatinine (Component) 1.1 mg/dL (0.6-1.3); Globulin 2.5 gm/dL (2.3-3.5); Glucose 196 mg/dL (74-106); Osmolality,Calculated 284 (275-295); Potassium 3.8 mMol/L (3.4-5.1); Sodium 139 mMol/L (136-145); Total Protein 6.5 gm/dL (5.7-8.2); eGFR > 60 See Note
[2024-06-29 15:59] LABS: Basophils % (Auto) 1 % (0-2.5); Eosinophils % (Auto) 0 % (0-10); Hematocrit 27.7 % (41.0-53.0); Hemoglobin 9.2 g/dL (13.5-16.0); Immature Granulocytes % (Auto) 2 % (0-0); Immature Granulocytes Auto 0.09 Thou/mm3 (0.00-0.00); Lymphocytes # (Auto) 1.2 Thou/mm3 (1.0-4.8); Lymphocytes % (Auto) 21 % (10-50); Mean Corpuscular HGB Conc 33.2 g/dl (31.0-37.0); Mean Corpuscular Hemoglobin 31.7 pg (25.0-35.0); Mean Corpuscular Volume 96 fL (80-100); Monocytes # (Auto) 1.4 Thou/mm3 (0.0-0.8); Monocytes % (Auto) 25 % (0-12); Neutrophils # (Auto) 2.8 Thou/mm3 (1.8-7.7); Neutrophils % (Auto) 52 % (37-80); Nucleated Red Blood Cell # 0.02 Thou/mm3 (0.00-0.00); Nucleated Red Blood Cell % 0 /100 WBC (0); Platelet Count 154 Thou/mm3 (140-440); RDW Standard Deviation 59.1 fL (35.1-43.9); White Blood Count 5.5 Thou/mm3 (3.8-10.6)
[2024-06-29 16:16] LABS: Alanine Aminotransferase 27 U/L (10-49); Albumin, Serum 4.1 gm/dL (3.4-4.8); Albumin/Globulin Ratio 1.5 (1.2-2.2); Alkaline Phosphatase 132 U/L (46-116); Anion Gap 10 (7-16); Aspartate Amino Transferase 20 U/L (0-34); BUN/Creatinine Ratio 19 Ratio (12-20); Bilirubin,Total 0.5 mg/dL (0.3-1.2); Blood Urea Nitrogen 21 mg/dL (9-23); Calcium 10.3 mg/dL (8.3-10.6); Calcium (Corrected) 10.3 mg/dL (8.5-10.1); Carbon Dioxide 24.8 mMol/L (20.0-31.0); Chloride 103 mMol/L (98-107); Creatinine (Component) 1.1 mg/dL (0.6-1.3); Globulin 2.7 gm/dL (2.3-3.5); Glucose 104 mg/dL (74-106); Osmolality,Calculated 278 (275-295); Potassium 4.1 mMol/L (3.4-5.1); Sodium 138 mMol/L (136-145); Total Protein 6.8 gm/dL (5.7-8.2); eGFR > 60 See Note
== END 2024-07-05 23:59 | disposition home or self-care (01) ==
LOC: SCTC 08:28
PROVIDERS: Internal Medicine Hematology & Oncology; PCP Family Medicine; Referring Provider Family Medicine; Visit Provider Radiology Therapeutic Radiology
DX: Z51.11 Encounter for antineoplastic chemotherapy (principal); C79.51 Secondary malignant neoplasm of bone; C34.90 Malignant neoplasm of unspecified part of unspecified bronchus or lung
CPT/HCPCS: 36591; 80053; 85025; 96367; 96413; A4216; J1100; J1642; J2405; J7040; J7050; J9223

== ENCOUNTER 2024-07-07 14:55 | Inpatient (IN) | payer MEDICAID, SELFPAY ==
[2024-07-07] VITALS (25 sets, daily range): BP systolic 97–148; BP diastolic 58–97; PULSE 64–159; RESP 12–27; TEMP 36.4–36.6; O2SAT 88–99; BMI 25.8
--- NOTE | 2024-07-07 15:20 | XR_ITS ---
Examination: AP chest single view TECHNIQUE: Sitting AP portable chest single view Exam date and time: July 07, 2024 1619 hours Comparison December 01, 2023 INDICATIONS: Shortness of breath today. FINDINGS: There remains parenchymal disease in the left upper lobe consistent with pneumonia or chronic infiltrate Normal heart size Right internal jugular Port-A-Cath tip satisfactory position Mild to moderate elevation left hemidiaphragm IMPRESSION: There remains significant parenchymal disease left upper lobe, consider scarring, pneumonia, clinical correlation advised
--- NOTE | 2024-07-07 15:21 | EKG_ITS ---
[facility] Test Date: 2024-07-07 Pat Name: JUD MAYA Department: Room: - Gender: Male Well Blower: : 1960 Requested By: Conrad Tavarez Order Number: [id number] Reading MD: Conrad Tavarez Measurements Intervals [place] Rate: 87 P: 160 DE: 161 QRS: 184 QRSD: 93 T: 160 QT: 333 QTc: 402 Interpretive Statements SINUS RHYTHM ARM LEADS REVERSED [INVERTED P AND QRS IN I] Compared to ECG 12/01/2023 10:29:32 No significant changes /store/S0/[id number].pdf
--- NOTE | 2024-07-07 15:21 | EDNOTE_ITS ---
ED General RME/HPI General Chief complaint: Nausea/Vomiting/Diarrhea Stated complaint: SYNCOPE Time Seen by Provider: 07/07/24 15:20 Arrival date/time: 07/07/24 14:55 CC: Syncope HPI approximately 1 hour ago at the cancer treatment [place]. Patient presents to the ER via EMS reports stable vital signs as the patient is being infused with IV fluids at the time. Patient was picked up at the cancer treatment [place], with fluids infusing into his port. Patient stated he is no good , patient does not speak Icelandic mostly Syriac. Review of the medical record show the patient has a history of small smell lung carcinoma. Family members at bedside to translate Syriac states the patient is cold but otherwise has no specific complaints. Related Data Previous Rx's ?Medication ?Instructions ?Recorded nirmatrelvir 300 mg (150 mg See Rx Instructions PO .CO MPLEX 03/05/23 x2)-ritonavir 100 mg tablet,dose #30 tabs pack (Paxlovid) docusate sodium 100 mg capsule 100 mg PO BID #60 caps 12/01/23 hydrocodone 5 mg-acetaminophen 325 1 tab PO Q6H PRN pa in #30 tabs 12/01/23 mg tablet hydrocodone 5 mg-acetaminophen 325 1 tab PO Q6H PRN pa in #30 tabs 12/01/23 mg tablet pregabalin 75 mg capsule (Lyrica) 75 mg PO BID #60 cap s 12/01/23 Allergies Allergy/AdvReac Type Severity Reaction Status Date / Time No Known Allergies Allergy Verified 03/05/23 10:02 Review of Systems Review of Systems Narrative Review of Systems: GEN: No fever, no chills, no weight loss EYES: No discharge, no visual changes, no pain HEENT: No ear pain, no congestion, no sore throat PULM: No shortness of breath, no cough, no congestion CV: No chest pain, no dyspnea on exertion, no palpitations GI: No nausea, no vomiting, no diarrhea, no pain, no constipation : No frequency, no urgency, no dysuria MUSC/SKEL: No joint pain, no back pain SKIN: No rash PSYCH: No hallucinations, no depression HEME/LYMPH: No easy bleeding or bruising tendencies NEURO: No weakness, + headache Past Medical History Past Medical History NEUROLOGIC: Negative Neurological Disorders, Cerebrovascular Accident, Transient Ischemic Attacks (TIA), Dementia, Alzheimer's Disease, Parkinson's Disease, Brain Tumor, Meningitis, Seizures, Epilepsy, Multiple Sclerosis, Cerebral Palsy, Amyotrophic Lateral Sclerosis (ALS/Ching Gehrig's), Guillain-Steger Syndrome, Spina Bifida, Paralysis, Peripheral Neuropathy, Navarrete's Palsy, Subdural Hematoma, Migraine, Head Trauma, Spinal Cord Injury or Traumatic Brain Injury CARDIAC: Negative Cardiac Disorders, Myocardial Infarction, Cardiac Arrhythmia, Atrial Fibrillation, Angina, Heart Murmur, Coronary Artery Disease, Atherosclerotic Heart Disease, Peripheral Vascular Disease, Hypercholesterolemia, Aneurysm, Congestive Heart Failure, Congenital Heart Disease, Valvular Heart Disease, Rheumatic Fever, Cardiomyopathy, Edema, Pericarditis, Cellulitis, Deep Vein Thrombosis, Hypertension, Hypotension or Varicose Veins RESPIRATORY: Negative Chronic Obstructive Pulmonary Disease (COPD), Asthma, Bronchitis, Emphysema, Pneumonia, Pulmonary Fibrosis, Cystic Fibrosis, Tuberculosis, Pulmonary Embolism, Pulmonary Edema or Sleep Apnea GASTROINTESTINAL: Negative Gastrointestinal Disorders, Hepatitis, Cirrhosis, Pancreatitis, Celiac Disease, Gall Bladder Disease, Gastrointestinal Bleed, Esophageal Varices, Sanchez's Esophagus, Colitis, Ulcerative Colitis, Diverticulitis, Diverticulosis, Ulcer, Colorectal Cancer, Irritable Bowel, Crohn's Disease, Obstructive Bowel, Hiatal Hernia, Hemorrhoids, Gastroesophageal Reflux Disease or Obesity GENITOURINARY: Negative Genitourinary Disorders, Renal Disease, Kidney Stones, Polycystic Kidney Disease, Neurogenic Bladder, Inguinal Hernia, Dialysis, Prostate Cancer or Benign Prostatic Hyperplasia REPRODUCTIVE: Negative Breast Cancer or Testicular Cancer MUSCULOSKELETAL: Negative Musculoskeletal Disorders, Muscular Dystrophy, Myasthenia Gravis, Marfan's Syndrome, Bone Cancer, Arthritis, Rheumatoid Arthritis, Osteoporosis, Gout, Scoliosis, Carpal Tunnel Syndrome, Fibromyalgia, Fractures, Degenerative Joint Disease, Osteomyelitis or Poliovirus ENT: Negative Cataracts, Glaucoma, Blind, Retinal Detachment, Macular Degeneration, Ear Infection, Deafness, Head Trauma or Eye Prosthesis ENDOCRINE: Negative Endocrine Disorders, Diabetes Mellitus Type 1, Diabetes Mellitus Type 2, Hypoglycemia, Lyle's Syndrome, Wade's Disease, Hyperthyroidism, Hypothyroidism, Parathyroid Disease, Pituitary Disease, Systemic Lupus Erythematosus, Syndrome of Inappropriate Antidiuretic Hormone (SIADH), Adrenal Disease or Graves' Disease HEMATOLOGIC: Negative Blood Disorders, Anemia, Leukemia, Hemophilia, Thalassemia, Sickle Cell Disease or Clotting Problems PSYCHO/SOCIAL: Negative Psychiatric Problems, Schizophrenia, Recreational Drug Use, Bipolar Disorder, Depression, Anxiety, Behavior Problems, Self-Mutilation, Attention Deficit Disorder, Attention Deficit Hyperactivity Disorder, Depression, Post Traumatic Stress Disorder or Eating Disorder OTHER HISTORY: Positive Cancer and Lung Cancer; Negative Hospitalization, Autoimmune Disease, Down Syndrome, Autism, Developmental Delay, Shingles, Falls, Blood Transfusions, Blood Transfusion Reaction, Anesthesia Reactions, Organ Transplant, Chemotherapy, Radiation Therapy, Hyperbaric Therapy, MRSA, VRSA, Vancomycin-Resistant Enterococci, Human Immunodeficiency Virus (HIV), Chicken Pox, Measles, Mumps, Rubella (Thai Measles), Pertussis, Clostridium Difficile, Breast Cancer, Colorectal Cancer, Prostate Cancer or Testicular Cancer Family History FAMILY HISTORY: Positive Family Cancer (FATHER PASSED FROM CANCER); Negative Family Psychiatric Problems, Family Respiratory Disorders, Family Cardiac Disorders, Family Gastrointestinal Problems, Family Surgery or Family Anesthesia Reaction Surgical History SURGICAL: Negative Cardiac Surgery, Open Heart Surgery, Coronary Artery Bypass Graft, Valve Replacement, Vascular Surgery, Coronary Stent, Cardiac Catheterization, Pacemaker, Angiogram, Auto Implanted Cardiovert Defib, Carotid Endarterectomy, Endocrine Surgery, Thyroidectomy, Ear Surgery, Tympanostomy Tube, Eye Surgery, Nose Surgery, Oral Surgery, Tonsillectomy, Adenoidectomy, Cochlear Implant, Corneal Transplant, Throat Surgery, Abdominal Surgery, Tracheostomy, Gastric Bypass Surgery, Gastrostomy, Bowel Surgery, Nephrectomy, Transurethral Resection, Joint Replacement, Amputation, Open Reduction Internal Fixation, Arthroscopy, Neurologic Surgery, Brain Shunt, Vasectomy or Organ Transplant Social History SMOKING STATUS: Former smoker ED Exam Narrative Physical exam: [General: In mild discomfort but not in any acute distress Head normocephalic HEENT: Within acceptable limits Neck is supple nontender Chest equal chest rise nontender to palpation Respiratory: Clear to auscultation no wheezes crackles or rubs CV: Rate rhythm is regular no murmurs rubs or clicks Abdomen is distended secondary to body habitus soft nontender no masses positive bowel sounds all 4 quadrants Back: No CVA tenderness no spinous process tenderness from cervical spine thoracic and lumbar spine Skin: Pale, diaphoretic, intact no petechiae rash induration ulceration or crepitus PowerPort in the right anterior chest accessed with a IV fluids flowing. Extremities: Moving all extremity against resistance cap refill less than 2 seconds neurosensory intact Neuro: Awake alert oriented x3 Glascow coma 15 no focal deficits] Course Course Course Narrative: Reassessment at 2030, the patient started vomiting a rectal temp was rechecked and the patient's temp was 87.1 and the patient was shivering at this time with a hemoglobin of 7.9 and when to give transfuse the patient with a single unit of packed cells, BUN also elevated we will give him additional fluids. At 2054 patient was noted to have a heart rate in the 150s. Case discussed with Dr. Darnell, at this time it is determined the patient meet SIRS criteria will initiate sepsis protocol including IV antibiotics. Dr. Darnell and I assessed the patient at 2112, the patient continues to be tachycardic when taking off the facemask she rapidly desaturations. Heart rate remains consistently in the 150s at this time we are concerned that the patient has PE, will send the patient over for CTA. At 2199, Dr. Darnell spoke with Dr. Vega the inspector brake lining on-call and sent him a picture of the new EKG. 2201, Dr. Henriquez returned call stating that the EKG is most likely A-fib and not a tachycardia. Discussed with Dr. Mann Negrete recommends giving 20 of Cardizem to see if there is a cardiac response. Reassessment of this patient at 2214 the patient is sitting upright he is talking to his family members at bedside continues to be tachycardic simple mask was turned up to 10 L for oxygen saturation of 90%. At this time we will repeat of CBC CMP Pro-Anup lactic acid, and will consult respiratory therapy for potential for high flow if necessary. 2301 patient's care, report given, and condition assumed by Dr. Darnell. Quality Measures none Orders Category Date Time Status CT Screening NOW Care 07/07/24 21:13 Active Human Resources Trainer STAT Care 07/07/24 20:58 Active Continuous Pulse Oximetry STAT Care 07/07/24 20:58 Completed EKG (ED ONLY) *Do not use* NOW Care 07/07/24 15:21 Completed EKG (ED ONLY) *Do not use* NOW Care 07/07/24 20:54 Completed EKG (ED ONLY) *Do not use* NOW Care 07/07/24 23:08 Completed Zhao [Urinary Catheter] QS Care 07/07/24 21:56 Active Strict Intake and Output Routine Care 07/07/24 20:58 Ordered Transfuse,blood/blood products NOW Care 07/07/24 19:06 Active Referral Respiratory Therapy Stat Cons 07/07/24 22:[address] angio chest Stat Exams 07/07/24 21:13 Completed EKG (ED Only) Stat Exams 07/07/24 15:21 Draft EKG (ED Only) Stat Exams 07/07/24 20:54 Draft EKG (ED Only) Stat Exams 07/07/24 23:08 Draft XR chest 1V Stat Exams 07/07/24 15:20 Completed B-Type Natriuretic Peptide Stat Lab 07/07/24 16:08 Completed B-Type Natriuretic Peptide Stat Lab 07/07/24 22:13 Completed Blood Culture (Lab) Stat Lab 07/07/24 21:25 Results CBC Stat Lab 07/07/24 16:08 Completed CBC Stat Lab 07/07/24 21:21 Completed CMP [Comprehensive Metabolic Panel] Stat Lab 07/07/24 22:13 Completed Comprehensive Metabolic Panel Stat Lab 07/07/24 16:08 Completed Drug Screen,Urine Stat Lab 07/07/24 16:47 Completed LDH (Lactate Dehydrogenase) Stat Lab 07/07/24 16:08 Completed LDH (Lactate Dehydrogenase) Stat Lab 07/07/24 21:21 Completed Lactate (Lactic Acid) Stat Lab 07/07/24 21:21 Completed Lactic Acid [Lactate (Lactic Acid)] Stat Lab 07/07/24 22:13 Completed Lactic Acid, 3 HR Stat Lab 07/08/24 01:10 Completed Lipase Stat Lab 07/07/24 21:21 Completed Magnesium Stat Lab 07/07/24 16:08 Completed Magnesium Stat Lab 07/07/24 21:21 Completed Partial Thromboplastin Time Stat Lab 07/07/24 16:08 Completed Phosphorous Stat Lab 07/07/24 21:21 Completed Procalcitonin Stat Lab 07/07/24 21:21 Completed Procalcitonin Stat Lab 07/07/24 22:13 Completed Prothrombin Time with INR Stat Lab 07/07/24 16:08 Completed Troponin I Stat Lab 07/07/24 16:08 Completed Troponin I Stat Lab 07/07/24 21:21 Completed Type and Screen Stat Lab 07/07/24 19:36 Results Urinalysis Stat Lab 07/07/24 16:47 Completed Urinalysis Stat Lab 07/08/24 06:30 Completed Urine Culture Stat Lab 07/08/24 06:30 Received prbc [Red Blood Cells] Stat Lab 07/07/24 19:36 Results Acetaminophen Ivpb [Ofirmev Inj] Med 07/08/24 00:54 Discontinued 1,000 mg in 100 ml IV Q6HR Acetaminophen Tab [Tylenol Tab] Med 07/08/24 00:48 Discontinued 975 mg PO X1 ONE Diltiazem Inj [Cardizem Inj] Med 07/07/24 22:01 Discontinued 20 mg IV X1 ONE Doxycycline Inj [Vibramycin Inj] 100 mg Med 07/07/24 23:01 Discontinued Sodium Chloride 0.9% (Pop) [NS 0.9% mini bag] 100 ml IV X1 Ondansetron Inj [Zofran Inj] Med 07/07/24 20:37 Discontinued 4 mg IV X1 ONE Piper/Tazo Inj [Zosyn Inj] 3.375 gm Med 07/07/24 21:15 Discontinued SODIUM CHLORIDE 0.9% (Popper) [Ns 0.9% (P)] 50 ml IV X1 Sodium Chloride 0.9% 1000 ml [Ns] 1,000 ml Med 07/07/24 21:38 Discontinued IV 999 mls/hr Sodium Chloride 0.9% 1000 ml [Ns] 1,000 ml Med 07/08/24 00:57 Discontinued IV 999 mls/hr Sodium Chloride 0.9% 1000 ml [Ns] 1,000 ml Med 07/08/24 00:57 Discontinued IV 999 mls/hr Sodium Chloride 0.9% 1000 ml [Ns] 1,000 ml Med 07/08/24 00:58 Discontinued IV 999 mls/hr Oxygen Delivery NOW RT 07/07/24 20:58 Active Vital Signs Vital signs: Vital Signs Temperature 97.9 F 07/07/24 15:00 Pulse Rate 92 07/07/24 15:00 Respiratory Rate 18 07/07/24 15:00 Blood Pressure 107/75 07/07/24 15:00 Pulse Oximetry (%) 96 07/07/24 15:00 Oxygen Delivery Method Room Air 07/07/24 15:00 [facility] Patient data External records reviewed:: [facility] previous records and EMS form Clinical information provided by:: patient and EMS Social determinants that could affect healthcare access:: none Patient has the following chronic illnesses:: Small cell carcinoma How is presenting disease/condition affected by chronic disease/condition?: e xacerbated by Evaluation data The following diagnostics were reviewed and interpreted by me:: lab results, radiology exam(s) and EKG tracing(s) Lab and/or radiology exams considered but not ordered:: EKG performed at 1559 shows a ventricular rate of 87 FL interval 161 QRS of 93 QTc of 378 this is normal sinus rhythm. CBC shows a WBC of 1.3 hemoglobin of 7.9 hematocrit of 23.4 platelets of 57. Thank Coags within acceptable limits CMP shows BUN of 31 creatinine of 1.2 glucose of 153, ALT of 74 alk phos of 156 total bili of 0.8. Troponin of the normal BMP is normal. Urine is negative for UTI Urine tox is positive for opiates. Interpretation Summary: Small cell lung cancer Medications Medications considered but not ordered:: None Medication administrations:: Medication Administration History Acetaminophen (Acetaminophen 325 Mg Tablet) 650 mg PO Q6H PRN PRN Reason: Pain 1-3 or Fever >100.3 Stop: 08/07/24 01:32 Last Admin: 07/09/24 18:44 Dose: 650 mg Documented By: DILLAN Hydrocodone Bitart/Acetaminophen (Hydrocodone/Apap 5/325 Tablet) 1 tab PO Q4HR PRN PRN Reason: PAIN SCALE 4-6 (Moderate Stop: 07/13/24 01:32 Hydrocodone Bitart/Acetaminophen (Hydrocodone/Apap 10/325 Tab) 1 tab PO Q4H PRN PRN Reason: Pain Scale 7-10 (Moderate Stop: 07/13/24 01:32 Benzonatate (Benzonatate 100 Mg Capsule) 100 mg PO Q8HR PRN; Protocol PRN Reason: COUGH Stop: 08/08/24 17:58 Famotidine (Famotidine 20 Mg Tablet) 20 mg PO BID [facility] Stop: 08/07/24 08:59 Last Admin: 07/09/24 20:52 Dose: 20 mg Documented By: Admin: 07/09/24 08:01 Dose: 20 mg Documented By: Admin: 07/08/24 08:44 Dose: 20 mg Documented By: Admin: 07/08/24 08:43 Dose: 20 mg Documented By: DILLAN Filgrastim (Filgrastim Inj (Zarxio) 480 Mcg/0.8 Ml Syringe) 480 mcg SC QDAY [facility] Stop: 07/13/24 09:29 Last Admin: 07/09/24 09:58 Dose: 480 mcg Documented By: bry Cefepime HCl 2 gm/ Sodium (Chloride) 50 mls @ 100 mls/hr IV Q12HR ARI Stop: 07/15/24 01:39 Last Admin: 07/09/24 20:52 Dose: 100 mls/hr Documented By: Infusion: 07/09/24 08:30 Dose: Infused Documented By: Admin: 07/09/24 08:00 Dose: 100 mls/hr Documented By: Infusion: 07/08/24 22:04 Dose: Infused Documented By: Admin: 07/08/24 21:34 Dose: 100 mls/hr Documented By: Infusion: 07/08/24 09:13 Dose: Infused Documented By: Admin: 07/08/24 08:43 Dose: 100 mls/hr Documented By: Admin: 07/08/24 06:38 Dose: Not Given Documented By: GEOVANNY Non-Admin Reason: not in room, per MD, wait for 0900 administra Vancomycin HCl/Dextrose (Vancomycin/D5w 1,250 Mg Ivpb) 250 mls @ 120 mls/hr IV DAILY@2200 ARI; Protocol Stop: 07/15/24 21:59 Last Admin: 07/08/24 21:34 Dose: 120 mls/hr Documented By: GEOVANNY Micafungin Sodium 100 mg/ (Sodium Chloride) 100 mls @ 100 mls/hr IV QDAY ARI Stop: 08/07/24 10:59 Last Admin: 07/09/24 09:38 Dose: 100 mls/hr Documented By: bry Infusion: 07/08/24 13:44 Dose: Infused Documented By: bry Admin: 07/08/24 12:44 Dose: 100 mls/hr Documented By: DILLAN Azithromycin 500 mg/ Sodium (Chloride) 250 mls @ 250 mls/hr IV QDAY ARI Stop: 07/15/24 01:39 Last Admin: 07/09/24 09:37 Dose: 250 mls/hr Documented By: bry Infusion: 07/08/24 13:44 Dose: Infused Documented By: bry Admin: 07/08/24 12:44 Dose: 250 mls/hr Documented By: DILLAN Ondansetron HCl (Ondansetron Inj 2 Mg/Ml Inj 2 Ml) 4 mg IV Q6H PRN; Protocol PRN Reason: NAUSEA OR VOMITING Stop: 08/07/24 01:32 Pharmacy Consult (Vancomycin Pharmacy To Dose 1 Each Each) 1 each IV QDAY PRN PRN Reason: CONSULT Stop: 08/07/24 08:59 Sennosides (Senna Tablet) 1 tab PO QDAY PRN; Protocol PRN Reason: CONSTIPATION Stop: 08/07/24 08:59 Discontinued Medications Acetaminophen (Acetaminophen 325 Mg Tablet) 975 mg PO X1 ONE Stop: 07/08/24 00:49 Last Admin: 07/08/24 00:55 Dose: Not Given Documented By: TAMAR Non-Admin Reason: Cancelled by Provider Acetaminophen (Acetaminophen 325 Mg Tablet) 650 mg PO Q6H PRN PRN Reason: Fever >101.5 Stop: 08/07/24 01:32 Last Admin: 07/09/24 12:16 Dose: 650 mg Documented By: Admin: 07/09/24 03:19 Dose: 650 mg Documented By: Admin: 07/08/24 19:30 Dose: 650 mg Documented By: Admin: 07/08/24 09:04 Dose: 650 mg Documented By: DILLAN Diltiazem HCl (Diltiazem Inj 5 Mg/Ml Vial 5 Ml) 20 mg IV X1 ONE Stop: 07/07/24 22:02 Last Admin: 07/08/24 01:44 Dose: Not Given Documented By: TAMAR Non-Admin Reason: Discontinued Filgrastim (Filgrastim Inj (Zarxio) 480 Mcg/0.8 Ml Syringe) 480 mcg SC QDAY ONE Stop: 07/08/24 11:46 Last Admin: 07/08/24 12:44 Dose: 480 mcg Documented By: DILLAN Filgrastim (Filgrastim Inj (Neupogen) 300 Mcg/Ml Vial) 300 mcg SC QDAY ARI Stop: 07/13/24 09:29 Piperacillin Sod/Tazobactam (Sod 3.375 gm/ Sodium Chloride) 50 mls @ 100 mls/hr IV X1 ONE Stop: 07/07/24 21:44 Last Infusion: 07/07/24 22:51 Dose: Infused Documented By: Admin: 07/07/24 21:18 Dose: 100 mls/hr Documented By: ELVA Sodium Chloride (Ns) 1,000 mls @ 999 mls/hr IV .Q1H1M ONE Stop: 07/07/24 22:38 Last Infusion: 07/07/24 23:33 Dose: Infused Documented By: Admin: 07/07/24 22:08 Dose: 999 mls/hr Documented By: ABHAY Doxycycline Hyclate 100 mg/ (Sodium Chloride) 100 mls @ 100 mls/hr IV X1 ONE Stop: 07/08/24 00:00 Last Infusion: 07/08/24 01:50 Dose: Infused Documented By: Admin: 07/08/24 00:46 Dose: 100 mls/hr Documented By: TAMRA Acetaminophen (Ofirmev Inj) 1,000 mg in 100 mls @ 250 mls/hr IV Q6HR ARI Stop: 07/08/24 18:23 Last Admin: 07/08/24 06:39 Dose: Not Given Documented By: GEOVANNY Non-Admin Reason: Discontinued Infusion: 07/08/24 02:00 Dose: Infused Documented By: Admin: 07/08/24 01:20 Dose: 250 mls/hr Documented By: TAMAR Sodium Chloride (Ns) 1,000 mls @ 999 mls/hr IV .Q1H1M ONE Stop: 07/08/24 01:57 Last Infusion: 07/08/24 02:15 Dose: Infused Documented By: Admin: 07/08/24 01:05 Dose: 999 mls/hr Documented By: TAMAR Sodium Chloride (Ns) 1,000 mls @ 999 mls/hr IV .Q1H1M ONE Stop: 07/08/24 01:57 Last Infusion: 07/08/24 03:00 Dose: Infused Documented By: Admin: 07/08/24 01:53 Dose: 999 mls/hr Documented By: TAMAR Sodium Chloride (Ns) 1,000 mls @ 999 mls/hr IV .Q1H1M ONE Stop: 07/08/24 01:58 Last Admin: 07/08/24 03:14 Dose: Not Given Documented By: TAMAR Non-Admin Reason: Discontinued Norepinephrine/Dextrose (Levophed In D5w 8mg/250ml) 8 mg in 250 mls @ 6.804 mls/hr IV .Q24H PRN; Protocol PRN Reason: PER PROTOCOL Stop: 08/07/24 01:38 Last Titration: 07/09/24 10:00 Dose: 0 mcg/kg/min, 0 mls/hr Documented By: bry Titration: 07/09/24 09:30 Dose: 0.01 mcg/kg/min, 1.361 mls/hr Documented By: bry Titration: 07/09/24 09:00 Dose: 0.03 mcg/kg/min, 4.082 mls/hr Documented By: Titration: 07/09/24 08:00 Dose: 0.03 mcg/kg/min, 4.082 mls/hr Documented By: Titration: 07/09/24 07:41 Dose: 0.03 mcg/kg/min, 4.082 mls/hr Documented By: Titration: 07/09/24 06:00 Dose: 0.05 mcg/kg/min, 6.804 mls/hr Documented By: Admin: 07/09/24 05:20 Dose: 0.05 mcg/kg/min, 6.804 mls/hr Documented By: Titration: 07/09/24 05:20 Dose: Infused Documented By: Titration: 07/09/24 05:03 Dose: 0.05 mcg/kg/min, 6.804 mls/hr Documented By: Titration: 07/09/24 05:00 Dose: 0.03 mcg/kg/min, 4.082 mls/hr Documented By: Titration: 07/09/24 04:18 Dose: 0.03 mcg/kg/min, 4.082 mls/hr Documented By: Titration: 07/09/24 04:00 Dose: 0.01 mcg/kg/min, 1.361 mls/hr Documented By: Titration: 07/09/24 03:27 Dose: 0.01 mcg/kg/min, 1.361 mls/hr Documented By: Titration: 07/09/24 03:00 Dose: 0.03 mcg/kg/min, 4.082 mls/hr Documented By: Titration: 07/09/24 02:00 Dose: 0.03 mcg/kg/min, 4.082 mls/hr Documented By: Titration: 07/09/24 01:00 Dose: 0.03 mcg/kg/min, 4.082 mls/hr Documented By: Titration: 07/09/24 00:00 Dose: 0.03 mcg/kg/min, 4.082 mls/hr Documented By: Titration: 07/08/24 23:00 Dose: 0.03 mcg/kg/min, 4.082 mls/hr Documented By: Titration: 07/08/24 22:00 Dose: 0.01 mcg/kg/min, 1.361 mls/hr Documented By: Titration: 07/08/24 21:00 Dose: 0.01 mcg/kg/min, 1.361 mls/hr Documented By: Titration: 07/08/24 20:00 Dose: 0.01 mcg/kg/min, 1.361 mls/hr Documented By: Titration: 07/08/24 19:28 Dose: 0.01 mcg/kg/min, 1.361 mls/hr Documented By: Titration: 07/08/24 19:00 Dose: 0.03 mcg/kg/min, 4.082 mls/hr Documented By: Titration: 07/08/24 18:00 Dose: 0.03 mcg/kg/min, 4.082 mls/hr Documented By: Titration: 07/08/24 17:49 Dose: 0.03 mcg/kg/min, 4.082 mls/hr Documented By: Titration: 07/08/24 17:07 Dose: 0.05 mcg/kg/min, 6.804 mls/hr Documented By: Titration: 07/08/24 17:00 Dose: 0.07 mcg/kg/min, 9.525 mls/hr Documented By: Titration: 07/08/24 16:13 Dose: 0.07 mcg/kg/min, 9.525 mls/hr Documented By: Titration: 07/08/24 16:00 Dose: 0.09 mcg/kg/min, 12.247 mls/hr Documented By: Titration: 07/08/24 15:00 Dose: 0.09 mcg/kg/min, 12.247 mls/hr Documented By: Titration: 07/08/24 14:00 Dose: 0.09 mcg/kg/min, 12.247 mls/hr Documented By: Titration: 07/08/24 13:00 Dose: 0.09 mcg/kg/min, 12.247 mls/hr Documented By: Titration: 07/08/24 12:44 Dose: 0 mcg/kg/min, 0.09 mls/hr Documented By: Titration: 07/08/24 12:00 Dose: 0.09 mcg/kg/min, 12.247 mls/hr Documented By: Titration: 07/08/24 11:00 Dose: 0.09 mcg/kg/min, 12.247 mls/hr Documented By: Titration: 07/08/24 10:00 Dose: 0.09 mcg/kg/min, 12.247 mls/hr Documented By: Titration: 07/08/24 09:17 Dose: 0.09 mcg/kg/min, 12.247 mls/hr Documented By: Titration: 07/08/24 09:00 Dose: 0.11 mcg/kg/min, 14.969 mls/hr Documented By: Titration: 07/08/24 08:43 Dose: 0.11 mcg/kg/min, 14.969 mls/hr Documented By: Titration: 07/08/24 08:00 Dose: 0.11 mcg/kg/min, 14.969 mls/hr Documented By: Titration: 07/08/24 07:00 Dose: 0.11 mcg/kg/min, 14.969 mls/hr Documented By: Titration: 07/08/24 06:33 Dose: 0.11 mcg/kg/min, 14.969 mls/hr Documented By: Titration: 07/08/24 06:00 Dose: 0.13 mcg/kg/min, 17.69 mls/hr Documented By: Titration: 07/08/24 05:00 Dose: 0.13 mcg/kg/min, 17.69 mls/hr Documented By: Titration: 07/08/24 04:00 Dose: 0.13 mcg/kg/min, 17.69 mls/hr Documented By: Titration: 07/08/24 03:36 Dose: 0.13 mcg/kg/min, 17.69 mls/hr Documented By: Titration: 07/08/24 03:30 Dose: 0.11 mcg/kg/min, 14.969 mls/hr Documented By: Titration: 07/08/24 03:00 Dose: 0.09 mcg/kg/min, 12.247 mls/hr Documented By: Titration: 07/08/24 02:55 Dose: 0.09 mcg/kg/min, 12.247 mls/hr Documented By: Titration: 07/08/24 02:50 Dose: 0.07 mcg/kg/min, 9.525 mls/hr Documented By: Admin: 07/08/24 02:45 Dose: 0.05 mcg/kg/min, 6.804 mls/hr Documented By: TAMAR Azithromycin 500 mg/ Sodium (Chloride) 250 mls @ 250 mls/hr IV QDAY [facility] Stop: 07/15/24 01:39 Last Admin: 07/08/24 18:57 Dose: Not Given Documented By: GEOVANNY Non-Admin Reason: Discontinued Admin: 07/08/24 06:38 Dose: Not Given Documented By: GEOVANNY Non-Admin Reason: not in room, per MD wait for 9am administrati Vancomycin/Sodium Chloride (Vancomycin/Ns 1 Gm Ivpb) 200 mls @ 133.333 mls/hr IV X1 ONE Stop: 07/08/24 03:29 Last Admin: 07/08/24 01:59 Dose: 133.333 mls/hr Documented By: TAMAR Sodium Chloride (Ns) 500 mls @ 999 mls/hr IV .Q31M [facility] Stop: 08/08/24 12:21 Last Admin: 07/09/24 15:52 Dose: Not Given Documented By: DILLAN Non-Admin Reason: Discontinued Admin: 07/09/24 13:05 Dose: 999 mls/hr Documented By: DILLAN Sodium Chloride (Ns) 500 mls @ 999 mls/hr IV .Q31M ONE Stop: 07/09/24 15:37 Last Infusion: 07/09/24 16:00 Dose: Infused Documented By: Admin: 07/09/24 15:54 Dose: 999 mls/hr Documented By: DILLAN Ondansetron HCl (Ondansetron Inj 2 Mg/Ml Inj 2 Ml) 4 mg IV X1 ONE; Protocol Stop: 07/07/24 20:38 Last Admin: 07/07/24 20:44 Dose: 4 mg Documented By: ELVA Comments: Administer through central line Potassium Chloride (Potassium Chloride 20 Meq Tabcr) 40 meq PO X1 ONE Stop: 07/09/24 07:05 Last Admin: 07/09/24 08:01 Dose: 40 meq Documented By: DILLAN Sodium Chloride (Sodium Chloride Rt 10% 15 Ml Nebu) 5 ml INH X1 ONE Stop: 07/08/24 02:30 Last Admin: 07/08/24 18:58 Dose: Not Given Documented By: AD Non-Admin Reason: Discontinued None Consultations Consultation(s) initiated? (list below): No Diagnosis Differential Diagnosis ED Complaint MDM: Sepsis, leukopenia small cell lung cancer tachycardia Most likely diagnosis given after review of the tests above:: Sepsis tachycardia leukopenia Admission Indicated Admission indicated?: indicated Explain why admission is indicated or not indicated:: Requires further medical management Admission Request Was there a request for admission?: No Disposition Plan Disposition Plan: Admit Medical Decision Making Differential Diagnosis Differential Diagnosis: Sepsis, leukopenia small cell lung cancer tachycardia Lab Data 07/09/24 19:40 07/09/24 04:45 Labs: Lab Results 07/07/24 07/07/24 07/07/24 Range/Units 16:08 16:47 19:36 WBC 1.3 L (3.8-10.6) Thou/mm3 RBC 2.52 L (4.50-5.90) Miln/mm3 Hgb 7.9 L (13.5-16.0) g/dL Hct 23.4 L (41.0-53.0) % MCV 93 (80-100) fL MCH 31.3 (25.0-35.0) pg MCHC 33.8 (31.0-37.0) g/dl RDW Std Deviation 56.1 H (35.1-43.9) fL Plt Count 57 L D (140-440) Thou/mm3 Neut % (Auto) 53 (37-80) % Lymph % (Auto) 40 (10-50) % [place] % (Auto) 5 (0-12) % Eos % (Auto) 0 (0-10) % Baso % (Auto) 0 (0-2.5) % Neut # (Auto) 0.7 L (1.8-7.7) Thou/mm3 Lymph # (Auto) 0.5 L (1.0-4.8) Thou/mm3 [place] # (Auto) 0.1 (0.0-0.8) Thou/mm3 Eos # (Auto) 0.0 (0.0-0.5) Thou/mm3 Baso # (Auto) 0.0 (0.0-0.2) Thou/mm3 Immature Gran # (Auto) 0.03 H (0.00-0.00) Thou/mm3 Absolute Nucleated RBC 0.00 (0.00-0.00) Thou/mm3 Immature Gran % 2 H (0-0) % Nucleated RBC % 0 (0) /100 WBC PT 10.9 (9.0-12.2) Seconds INR 1.0 (0.9-1.3) APTT 26.4 (22.0-36.0) Seconds Sodium 137 (136-145) mMol/L Potassium 4.4 (3.4-5.1) mMol/L Chloride 106 (98-107) mMol/L Carbon Dioxide 23.4 (20.0-31.0) mMol/L Anion Gap 8 (7-16) BUN 31 H (9-23) mg/dL Creatinine 1.2 (0.6-1.3) mg/dL Estim Creat Clear Calc 56.1 L (>60) mL/min eGFR > 60 (60 - ) See Note BUN/Creatinine Ratio 26 H (12-20) Ratio Glucose 153 H (74-106) mg/dL Calculated Osmolality 283 (275-295) Lactic Acid (0.4-2.0) mMol/L Calcium 8.7 (8.3-10.6) mg/dL Corrected Calcium 8.9 (8.5-10.1) mg/dL Phosphorus (2.4-5.1) mg/dL Magnesium 2.0 (1.6-2.6) mg/dL Total Bilirubin 0.8 (0.3-1.2) mg/dL AST 32 (0-34) U/L ALT 74 H (10-49) U/L Alkaline Phosphatase 156 H (46-116) U/L Lactate Dehydrogenase 154 (120-246) U/L Troponin I < 0.020 (0.0-0.045) ng/mL B-Natriuretic Peptide 43 (0-100) pg/mL Total Protein 6.3 (5.7-8.2) gm/dL Albumin 3.7 (3.4-4.8) gm/dL Globulin 2.6 (2.3-3.5) gm/dL Albumin/Globulin Ratio 1.4 (1.2-2.2) Lipase (12-53) U/L Procalcitonin (0.0-0.49) ng/ml Free T4 Ur Collection Type Clean Catch Urine Color Yellow (Lt Yel-Yel) Urine Clarity Clear (Clear/Hazy) Urine pH 6.0 (5.0-7.0) Ur Specific [place] 1.027 (1.001-1.035) Urine Protein Trace (Neg - Trace) Urine Glucose (UA) Negative (Negative) Urine Ketones Negative (Negative) Urine Blood Negative (Negative) Urine Nitrite Negative (Negative) Urine Bilirubin Negative (Negative) Urine Urobilinogen (Auto) Negative (0.0-1.0) mg/dL Ur Leukocyte Esterase Negative (Negative) Urine RBC 7 H (0-3) /hpf Urine WBC 3 (0-5) /hpf Ur Squamous Epith Cells < 1 (0-5) /hpf Urine Bacteria Rare (None) Urine Opiates Screen Positive A (Negative) Urine Fentanyl Screen Negative (Negative) Ur Barbiturates Screen Negative (Negative) U Amphetamin/Meth Scrn Negative (Negative) U Benzodiazepines Scrn Negative (Negative) U Cocaine Metab Screen Negative (Negative) U Marijuana (THC) Screen Negative (Negative) Misc Test Result Platelets confirmed Blood Type A Positive Antibody Screen NEGATIVE Crossmatch See Detail Blood Bank Wristband ID Yes Blood Bank Comment PLATP Ready 07/07/24 07/07/24 07/08/24 Range/Units 21:21 22:13 01:10 WBC < 0.4 L* D Cancelled (3.8-10.6) Thou/mm3 RBC 2.46 L Cancelled (4.50-5.90) Miln/mm3 Hgb 7.8 L Cancelled (13.5-16.0) g/dL Hct 22.5 L Cancelled (41.0-53.0) % MCV 92 Cancelled (80-100) fL MCH 31.7 Cancelled (25.0-35.0) pg MCHC 34.7 Cancelled (31.0-37.0) g/dl RDW Std Deviation 56.3 H Cancelled (35.1-43.9) fL Plt Count 43 L D Cancelled (140-440) Thou/mm3 Neut % (Auto) 36 L Cancelled (37-80) % Lymph % (Auto) 57 H Cancelled (10-50) % [place] % (Auto) 7 Cancelled (0-12) % Eos % (Auto) 0 Cancelled (0-10) % Baso % (Auto) 0 Cancelled (0-2.5) % Neut # (Auto) 0.1 L Cancelled (1.8-7.7) Thou/mm3 Lymph # (Auto) 0.2 L Cancelled (1.0-4.8) Thou/mm3 [place] # (Auto) 0.0 Cancelled (0.0-0.8) Thou/mm3 Eos # (Auto) 0.0 Cancelled (0.0-0.5) Thou/mm3 Baso # (Auto) 0.0 Cancelled (0.0-0.2) Thou/mm3 Immature Gran # (Auto) 0.00 Cancelled (0.00-0.00) Thou/mm3 Absolute Nucleated RBC 0.00 Cancelled (0.00-0.00) Thou/mm3 Immature Gran % 0 Cancelled (0-0) % Nucleated RBC % 0 Cancelled (0) /100 WBC PT (9.0-12.2) Seconds INR (0.9-1.3) APTT (22.0-36.0) Seconds Sodium 138 (136-145) mMol/L Potassium 4.7 (3.4-5.1) mMol/L Chloride 107 (98-107) mMol/L Carbon Dioxide 20.3 (20.0-31.0) mMol/L Anion Gap 11 (7-16) BUN 34 H (9-23) mg/dL Creatinine 1.3 (0.6-1.3) mg/dL Estim Creat Clear Calc 51.8 L (>60) mL/min eGFR > 60 (60 - ) See Note BUN/Creatinine Ratio 26 H (12-20) Ratio Glucose 193 H (74-106) mg/dL Calculated Osmolality 288 (275-295) Lactic Acid 2.9 H 2.5 H 1.8 (0.4-2.0) mMol/L Calcium 8.8 (8.3-10.6) mg/dL Corrected Calcium 9.0 (8.5-10.1) mg/dL Phosphorus 3.1 (2.4-5.1) mg/dL Magnesium 1.7 (1.6-2.6) mg/dL Total Bilirubin 1.4 H D (0.3-1.2) mg/dL AST 30 (0-34) U/L ALT 72 H (10-49) U/L Alkaline Phosphatase 140 H (46-116) U/L Lactate Dehydrogenase 175 (120-246) U/L Troponin I < 0.020 (0.0-0.045) ng/mL B-Natriuretic Peptide 54 (0-100) pg/mL Total Protein 6.3 (5.7-8.2) gm/dL Albumin 3.7 (3.4-4.8) gm/dL Globulin 2.6 (2.3-3.5) gm/dL Albumin/Globulin Ratio 1.4 (1.2-2.2) Lipase 21 (12-53) U/L Procalcitonin 0.44 1.16 H (0.0-0.49) ng/ml Free T4 Cancelled Ur Collection Type Urine Color (Lt Yel-Yel) Urine Clarity (Clear/Hazy) Urine pH (5.0-7.0) Ur Specific [place] (1.001-1.035) Urine Protein (Neg - Trace) Urine Glucose (UA) (Negative) Urine Ketones (Negative) Urine Blood (Negative) Urine Nitrite (Negative) Urine Bilirubin (Negative) Urine Urobilinogen (Auto) (0.0-1.0) mg/dL Ur Leukocyte Esterase (Negative) Urine RBC (0-3) /hpf Urine WBC (0-5) /hpf Ur Squamous Epith Cells (0-5) /hpf Urine Bacteria (None) Urine Opiates Screen (Negative) Urine Fentanyl Screen (Negative) Ur Barbiturates Screen (Negative) U Amphetamin/Meth Scrn (Negative) U Benzodiazepines Scrn (Negative) U Cocaine Metab Screen (Negative) U Marijuana (THC) Screen (Negative) Misc Test Result Platelets confirmed Blood Type Antibody Screen Crossmatch Blood Bank Wristband ID Blood Bank Comment Discharge Plan Plan Patient Disposition: Admit Acute Care w/in Hospital Problem List Clinical Impression: Neutropenic sepsis, Dehydration, Pancytopenia, Pneumonia, Elevated LFTs, Septic shock
[2024-07-07 16:24] LABS: Basophils % (Auto) 0 % (0-2.5); Eosinophils % (Auto) 0 % (0-10); Hematocrit 23.4 % (41.0-53.0); Immature Granulocytes % (Auto) 2 % (0-0); Immature Granulocytes Auto 0.03 Thou/mm3 (0.00-0.00); Lymphocytes # (Auto) 0.5 Thou/mm3 (1.0-4.8); Lymphocytes % (Auto) 40 % (10-50); Mean Corpuscular HGB Conc 33.8 g/dl (31.0-37.0); Mean Corpuscular Hemoglobin 31.3 pg (25.0-35.0); Mean Corpuscular Volume 93 fL (80-100); Monocytes # (Auto) 0.1 Thou/mm3 (0.0-0.8); Monocytes % (Auto) 5 % (0-12); Neutrophils # (Auto) 0.7 Thou/mm3 (1.8-7.7); Neutrophils % (Auto) 53 % (37-80); Nucleated Red Blood Cell % 0 /100 WBC (0); RDW Standard Deviation 56.1 fL (35.1-43.9); Red Blood Count 2.52 Miln/mm3 (4.50-5.90)
[2024-07-07 16:37] LABS: B-Type Natriuretic Peptide 43 pg/mL (0-100)
[2024-07-07 16:40] LABS: Alanine Aminotransferase 74 U/L (10-49); Albumin, Serum 3.7 gm/dL (3.4-4.8); Albumin/Globulin Ratio 1.4 (1.2-2.2); Alkaline Phosphatase 156 U/L (46-116); Anion Gap 8 (7-16); Aspartate Amino Transferase 32 U/L (0-34); BUN/Creatinine Ratio 26 Ratio (12-20); Bilirubin,Total 0.8 mg/dL (0.3-1.2); Blood Urea Nitrogen 31 mg/dL (9-23); Calcium 8.7 mg/dL (8.3-10.6); Calcium (Corrected) 8.9 mg/dL (8.5-10.1); Carbon Dioxide 23.4 mMol/L (20.0-31.0); Chloride 106 mMol/L (98-107); Creatinine (Component) 1.2 mg/dL (0.6-1.3); Estimated Creatinine Clearance 56.1 mL/min (>60); Globulin 2.6 gm/dL (2.3-3.5); Glucose 153 mg/dL (74-106); LDH (Lactate Dehydrogenase) 154 U/L (120-246); Osmolality,Calculated 283 (275-295); Potassium 4.4 mMol/L (3.4-5.1); Sodium 137 mMol/L (136-145); Total Protein 6.3 gm/dL (5.7-8.2); Troponin I < 0.020 ng/mL (0.0-0.045); eGFR > 60 See Note
[2024-07-07 16:41] LABS: Hemoglobin 7.9 g/dL (13.5-16.0); Partial Thromboplastin Time 26.4 Seconds (22.0-36.0); Prothrombin Time 10.9 Seconds (9.0-12.2); White Blood Count 1.3 Thou/mm3 (3.8-10.6)
[2024-07-07 16:42] LABS: Platelet Count 57 Thou/mm3 (140-440)
[2024-07-07 16:53] LABS: Collection Type, Urine Clean Catch
[2024-07-07 17:23] LABS: Slide Review Platelets confirmed
[2024-07-07 17:24] LABS: Bacteria,Urine Rare; Bilirubin,Urine Negative (Negative); Blood,Urine Negative (Negative); Clarity,Urine Clear (Clear/Hazy); Color,Urine Yellow (Lt Yel-Yel); Glucose, Urine Negative (Negative); Ketones,Urine Negative (Negative); Leukocyte Esterase,Urine Negative (Negative); Nitrite,Urine Negative (Negative); Protein,Urine Trace (Neg - Trace); RBC,Urine 7 /hpf (0-3); Specific Gravity,Urine 1.027 (1.001-1.035); Squamous Epithelial Cell,Urine < 1 /hpf (0-5); Urobilinogen,Urine Negative mg/dL (0.0-1.0); WBC,Urine 3 /hpf (0-5)
[2024-07-07 17:28] LABS: Amphetamine/Methamp Scrn,U Negative (Negative); Barbiturate Screen,Urine Negative (Negative); Benzodiazepines Screen,Urine Negative (Negative); Benzoylecgonine Screen, Ur Negative (Negative); Fentanyl Screen,Urine Negative (Negative); Opiate Screen,Urine Positive (Negative); THC Screen,Urine Negative (Negative)
[2024-07-07] MEDS: ONDANSETRON INJ 2 MG/ML INJ 2 ML 4 MG IV (20:44)
--- NOTE | 2024-07-07 20:54 | EKG_ITS ---
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
--- NOTE | 2024-07-07 21:13 | XR_ITS ---
Examination: CTA chest with intravenous contrast 2-D reconstructions 3-D reconstructions, vascular Date and time of exam: July 07, 2024 10:43 PM End dictation's: SOB today tachycardia CTDI: vol (mGy) 6.49 DLP: (mGycm) 246 Technique: Multiple axial sections of the thorax have been obtained. 3 mm slice thickness, from below the hemidiaphragms to above the apices of the lungs. Mediastinal and lung density settings have been obtained. 2-D sagittal and coronal reconstructions. 3-D angiographic renderings, 3-D volume renderings, 3D post processing, vascular maximum intensity projections obtained. Contrast administered is 100 cc Isovue-370. Low dose protocols were performed. One or more of the following dose reduction techniques were used; automated exposure control, adjustment of the mA and/or KV according to patient size, use of iterative reconstruction technique. Findings: No thoracic aortic aneurysm dilatation or dissection Pulmonary artery segments are not enlarged No pulmonary artery emboli Extensive left lung opacity, severe at the left lung base Mild right base pneumonia No visualized liver or splenic lesion No gallstones No pancreatic mass Kidneys partially visualized no hydronephrosis IMPRESSION: Negative for pulmonary artery emboli Extensive left lung pneumonia prominent at the left lung base Mild pneumonia right base
[2024-07-07] MEDS: PIPER/TAZO INJ 3.375 GM in SODIUM CHLORIDE 0.9% (Popper) 50 ML IV (21:18)
[2024-07-07 21:46] LABS: Eosinophils % (Auto) 0 % (0-10); Lymphocytes # (Auto) 0.2 Thou/mm3 (1.0-4.8); Mean Corpuscular Volume 92 fL (80-100); Neutrophils # (Auto) 0.1 Thou/mm3 (1.8-7.7); Nucleated Red Blood Cell % 0 /100 WBC (0)
[2024-07-07 21:47] LABS: Lactate (Lactic Acid) 2.9 mMol/L (0.4-2.0)
[2024-07-07] MEDS: SODIUM CHLORIDE 0.9% 1000 ML 1,000 ML 999 ML IV (22:08)
[2024-07-07 22:25] LABS: Lactate (Lactic Acid) 2.5 mMol/L (0.4-2.0)
[2024-07-07 22:35] LABS: Basophils % (Auto) 0 % (0-2.5); Hematocrit 22.5 % (41.0-53.0); Immature Granulocytes % (Auto) 0 % (0-0); Lymphocytes % (Auto) 57 % (10-50); Mean Corpuscular HGB Conc 34.7 g/dl (31.0-37.0); Mean Corpuscular Hemoglobin 31.7 pg (25.0-35.0); Monocytes % (Auto) 7 % (0-12); Neutrophils % (Auto) 36 % (37-80); RDW Standard Deviation 56.3 fL (35.1-43.9); Red Blood Count 2.46 Miln/mm3 (4.50-5.90)
[2024-07-07 22:50] LABS: Hemoglobin 7.8 g/dL (13.5-16.0); Platelet Count 43 Thou/mm3 (140-440)
[2024-07-07 22:52] LABS: White Blood Count < 0.4 Thou/mm3 (3.8-10.6)
[2024-07-07 22:53] LABS: Slide Review Platelets confirmed
--- NOTE | 2024-07-07 23:04 | PD.EDADDENDU ---
Emergency Room Addendum Addendum Narrative: 2300: Care assumed from Conrad Ferro NP. Past medical, surgical, social and family history reviewed. Vitals and home medications reviewed. Results and treatment plan discussed. I will assume the care of the patient at this time and will follow the patient, pending CTA of the chest and labs. Please refer to the emergency department record for history and examination from initial visit. EKG done at 2320, sinus tachycardia, rate of 130, normal axis, no ectopy, no acute ischemia, according to my interpretation. Patient did not receive Cardizem that was recommended by Dr. Vega due to the patient's blood pressure being low and his HR improving after receiving fluids. 0048: Patient's blood pressure is low at 85/58 with a heart rate of 127. He is now febrile at 102.7. 3L NS IVF and Ofirmev 1000mg ordered. Will consult an admission to the ICU resident. 0058: Discussed case with [Dr. Richards, attending Dr. Maloney] from Hospitalist service regarding admission. Discussed patients ED course, exam findings, labs, and radiology results. The Hospitalist [agrees] to accept the patient for admission. 0104: I spoke with two of the patient's family members at great length regarding the patient's test results. Informed them that the patient will need to be admitted to the ICU for further management. They were given the opportunity to ask any and all questions, at which time they were answered. Patient's blood pressure is 100/61 with a HR of 118 and is saturating at 97% on 15L/venti mask. Diagnoses: neutropenic sepsis, septic shock, pancytopenia, dehydration, elevated LFTs, pneumonia RADIOLOGY RESULTS: [facility] Report Signed Patient: JUD MAYA Record#: [id number] Birthdate: 1960 Age/Sex: 64 / M Location: [facility] Attending Dr: Ordering Physician: Conrad Ferro NP Date of Service: 07/07/24 Procedure(s): CT angio chest Accession Number(s): [id number] cc: Conrad Ferro NP; Hakeem Rm MD; NO PRIMARY/FAMILY,PHYSICIAN~ Examination: CTA chest with intravenous contrast 2-D reconstructions 3-D reconstructions, vascular Date and time of exam: July 07, 2024 10:43 PM End dictation's: SOB today tachycardia CTDI: vol (mGy) 6.49 DLP: (mGycm) 246 Technique: Multiple axial sections of the thorax have been obtained. 3 mm slice thickness, from below the hemidiaphragms to above the apices of the lungs. Mediastinal and lung density settings have been obtained. 2-D sagittal and coronal reconstructions. 3-D angiographic renderings, 3-D volume renderings, 3D post processing, vascular maximum intensity projections obtained. Contrast administered is 100 cc Isovue-370. Low dose protocols were performed. One or more of the following dose reduction techniques were used; automated exposure control, adjustment of the mA and/or KV according to patient size, use of iterative reconstruction technique. Findings: No thoracic aortic aneurysm dilatation or dissection Pulmonary artery segments are not enlarged No pulmonary artery emboli Extensive left lung opacity, severe at the left lung base Mild right base pneumonia No visualized liver or splenic lesion No gallstones No pancreatic mass Kidneys partially visualized no hydronephrosis IMPRESSION: Negative for pulmonary artery emboli Extensive left lung pneumonia prominent at the left lung base Mild pneumonia right base Dictated By: Hakeem Rm MD Signed By: <Electronically signed by Hakeem Rm MD in OV> 07/07/24 6544 CRITICAL CARE TIME: 120 minutes The high probability of sudden, clinically significant deterioration in the patient?s condition required the highest level of my preparedness to intervene urgently. The services I provided to this patient were to treat and/or prevent clinically significant deterioration. Services included the following: chart data review, reviewing nursing notes and/or old charts, documentation time, client development consultant collaboration regarding findings and treatment options, medication orders and management, direct patient care, vital sign assessments and ordering, interpreting and reviewing diagnostic studies and lab tests. Aggregate critical care time includes only time during which I was engaged in work directly related to the patient?s care, as described above, whether at bedside or elsewhere in the Emergency Department. It did not include time spent performing other reported procedures or the services of residents, students, nurses or physician assistants.
[2024-07-07 23:07] LABS: Alanine Aminotransferase 72 U/L (10-49); Albumin, Serum 3.7 gm/dL (3.4-4.8); Albumin/Globulin Ratio 1.4 (1.2-2.2); Alkaline Phosphatase 140 U/L (46-116); Anion Gap 11 (7-16); Aspartate Amino Transferase 30 U/L (0-34); BUN/Creatinine Ratio 26 Ratio (12-20); Bilirubin,Total 1.4 mg/dL (0.3-1.2); Blood Urea Nitrogen 34 mg/dL (9-23); Calcium 8.8 mg/dL (8.3-10.6); Carbon Dioxide 20.3 mMol/L (20.0-31.0); Chloride 107 mMol/L (98-107); Creatinine (Component) 1.3 mg/dL (0.6-1.3); Estimated Creatinine Clearance 51.8 mL/min (>60); Globulin 2.6 gm/dL (2.3-3.5); Glucose 193 mg/dL (74-106); Osmolality,Calculated 288 (275-295); Potassium 4.7 mMol/L (3.4-5.1); Procalcitonin 1.16 ng/ml (0.0-0.49); Sodium 138 mMol/L (136-145); Total Protein 6.3 gm/dL (5.7-8.2); eGFR > 60 See Note
[2024-07-07 23:08] LABS: B-Type Natriuretic Peptide 54 pg/mL (0-100)
--- NOTE | 2024-07-07 23:08 | EKG_ITS ---
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
[2024-07-08] VITALS (120 sets, daily range): BP systolic 66–137; BP diastolic 45–82; PULSE 89–129; RESP 0–29; TEMP 36.5–39; O2SAT 88–100
[2024-07-08 00:16] LABS: LDH (Lactate Dehydrogenase) 175 U/L (120-246); Lipase 21 U/L (12-53); Magnesium 1.7 mg/dL (1.6-2.6); Phosphorous 3.1 mg/dL (2.4-5.1); Procalcitonin 0.44 ng/ml (0.0-0.49); Troponin I < 0.020 ng/mL (0.0-0.045)
[2024-07-08 00:33] LABS: Reflex Lactate? Y
[2024-07-08] MEDS: DOXYCYCLINE INJ 100 MG in SODIUM CHLORIDE 0.9% (POP) 100 ML IV (00:46)
[2024-07-08] MEDS: SODIUM CHLORIDE 0.9% 1000 ML 1,000 ML 999 ML IV ×2 (01:05→01:53)
[2024-07-08 01:17] LABS: Lactic Acid, 3 HR 1.8 mMol/L (0.4-2.0)
[2024-07-08 01:18] LABS: Reflex Lactate? Y
[2024-07-08] MEDS: ACETAMINOPHEN IVPB 1,000 MG/100 ML VIAL 250 MG IV (01:20)
--- NOTE | 2024-07-08 01:49 | ESHP_ITS ---
Documentation for date of: 07/08/24 HPI History of Present Illness History of present illness: Patient is a 64 year old male with PMH of small cell lung cancer s/p radiation on chemotherapy who presents to the ER for syncope. Patient was at his oncologist appointment earlier this afternoon to review imaging when patient became confused and had a syncope event. He was given fluids through his port and taken to the ER. Per family at bedside, patient has been feeling weak for the last 5-6 days. Endorses ronchi. Appetite intact. Endorses chronic lumbar back pain from metastasis. Denies headache, fever, cough, stomach pain, nausea, vomiting, dysuria, recent sick contact or travel. He does not use home oxygen. He speaks Romansh. PMH: small cell lung cancer, follows Dr. Rutledge and Dr. 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 Former smoker, denies alcohol or illicit drug use Surgeries: no prior surgeries Allergies: none ER Course Initial vitals stable afebrile and on room air; then tachycardic as high as 150s. He was initially hypothermic at 87.1 rectal temp and briefly placed on Richar Hugger. Labs showed pancytopenia with WBC 1.3 and Hb of 7.8. CTA did not show PE but showed significant left-sided pneumonia. EKG showed afib versus SVT and ER spoke to auricular therapist who recommended diltiazem, which was ultimately held due to hypotension. During this time, tachycardia improved however patient was hypoxic at 90%, thus placed on 10L of Oxygen. Blood pressure declined to 85/58 and patient was febrile at 102.7. He was given 3L of IVF, Zosyn, Doxy, Tylenol, and zofran, and 1 PRBC At bedside, patient is awake, alert, mentating, and orientated to name, place, situation. Patient to be admitted for septic shock, neutropenic fever, and acute hypoxic respiratory failure secondary to post-obstructive pneumonia in the setting of small cell lung cancer Review of Systems Review of Systems Systems Reviewed: All systems reviewed, normal except as documented Exam Vital Signs Temp Pulse Resp BP Pulse Ox O2 Del Method O2 Flow Rate 102.2 F H 122 H 21 H 99/59 L 99 High Flow Nasal Cannula 15 07/08/24 00:28 07/08/24 01:30 07/08/24 01:30 07/08/24 01:30 07/08/24 01:30 07/08/24 00:28 07/08/24 00:28 FiO2 50 07/08/24 00:28 Narrative Exam Constitutional: Elderly male, in mild acute distress, diaphoretic HEENT: NCAT. Vision grossly intact. Mucous membranes dry Respiratory: Decreased breath sounds left lung base Cardiac: Tachycardic Abdomen: Soft, non-distended, non-tender MSK: No B/L LE edema. Skin: No mottling appreciated. Extremities warm. Port-a-cath on right-side Neuro: Motor and sensation grossly intact. Psychiatric: Appropriate mood and affect. Results: Labs 07/07/24 21:21 07/07/24 22:13 Labs: Short CBC 07/07/24 07/07/24 07/07/24 Range/Units 16:08 21:21 22:13 WBC 1.3 L < 0.4 L* D Cancelled (3.8-10.6) Thou/mm3 Hgb 7.9 L 7.8 L Cancelled (13.5-16.0) g/dL Hct 23.4 L 22.5 L Cancelled (41.0-53.0) % Plt Count 57 L D 43 L D Cancelled (140-440) Thou/mm3 BMP 07/07/24 07/07/24 16:08 22:13 Sodium 137 138 Potassium 4.4 4.7 Chloride 106 107 Carbon Dioxide 23.4 20.3 BUN 31 H 34 H Creatinine 1.2 1.3 Glucose 153 H 193 H Calcium 8.7 8.8 Cardiac Enzymes 07/07/24 07/07/24 Range/Units 16:08 21:21 Troponin I < 0.020 < 0.020 (0.0-0.045) ng/mL Liver Function 07/07/24 07/07/24 Range/Units 16:08 22:13 Total Bilirubin 0.8 1.4 H D (0.3-1.2) mg/dL AST 32 30 (0-34) U/L ALT 74 H 72 H (10-49) U/L Alkaline Phosphatase 156 H 140 H (46-116) U/L Albumin 3.7 3.7 (3.4-4.8) gm/dL Urine 07/07/24 Range/Units 16:47 Urine Color Yellow (Lt Yel-Yel) Urine Clarity Clear (Clear/Hazy) Urine pH 6.0 (5.0-7.0) Ur Specific [place] 1.027 (1.001-1.035) Urine Protein Trace (Neg - Trace) Urine Glucose (UA) Negative (Negative) Quality Measures Quality Measures VTE prophylaxis and sepsis Current suspected stage: septic shock (LA >4 and/or hypotension) Sepsis reassessment completed at (date): 07/08/24 Sepsis reassessment completed at (time): 02:46 Possible source: pulmonary Blood cultures ordered: yes Antibiotic ordered: Yes Medications Home Medications and Allergies Allergies Allergy/AdvReac Type Severity Reaction Status Date / Time No Known Allergies Allergy Verified 03/05/23 10:02 Visit Medications Acetaminophen (Acetaminophen 325 Mg Tablet) 650 mg PO Q6H PRN PRN Reason: Fever >101.5 Stop: 08/07/24 01:32 Hydrocodone Bitart/Acetaminophen (Hydrocodone/Apap 5/325 Tablet) 1 tab PO Q4HR PRN PRN Reason: PAIN SCALE 4-6 (Moderate Stop: 07/13/24 01:32 Hydrocodone Bitart/Acetaminophen (Hydrocodone/Apap 10/325 Tab) 1 tab PO Q4H PRN PRN Reason: Pain Scale 7-10 (Moderate Stop: 07/13/24 01:32 Famotidine (Famotidine 20 Mg Tablet) 20 mg PO BID ARI Stop: 08/07/24 08:59 Acetaminophen (Ofirmev Inj) 1,000 mg in 100 mls @ 250 mls/hr IV Q6HR ARI Stop: 07/08/24 18:23 Sodium Chloride (Ns) 1,000 mls @ 999 mls/hr IV .Q1H1M ONE Stop: 07/08/24 01:57 Sodium Chloride (Ns) 1,000 mls @ 999 mls/hr IV .Q1H1M ONE Stop: 07/08/24 01:57 Sodium Chloride (Ns) 1,000 mls @ 999 mls/hr IV .Q1H1M ONE Stop: 07/08/24 01:58 Norepinephrine/Dextrose (Levophed In D5w 8mg/250ml) 8 mg in 250 mls @ 6.804 mls/hr IV .Q24H PRN; Protocol PRN Reason: PER PROTOCOL Stop: 08/07/24 01:38 Cefepime HCl 2 gm/ Sodium (Chloride) 50 mls @ 100 mls/hr IV Q12HR ARI Stop: 07/15/24 01:39 Azithromycin 500 mg/ Sodium (Chloride) 250 mls @ 250 mls/hr IV QDAY ARI Stop: 07/15/24 01:39 Azithromycin 500 mg/ Sodium (Chloride) 250 mls @ 250 mls/hr IV X1 ONE Stop: 07/08/24 02:44 Ondansetron HCl (Ondansetron Inj 2 Mg/Ml Inj 2 Ml) 4 mg IV Q6H PRN; Protocol PRN Reason: NAUSEA OR VOMITING Stop: 08/07/24 01:32 Pharmacy Consult (Vancomycin Pharmacy To Dose 1 Each Each) 1 each IV [facility] Stop: 08/07/24 08:59 Discontinued Medications Acetaminophen (Acetaminophen 325 Mg Tablet) 975 mg PO X1 ONE Stop: 07/08/24 00:49 Last Admin: 07/08/24 00:55 Dose: Not Given Diltiazem HCl (Diltiazem Inj 5 Mg/Ml Vial 5 Ml) 20 mg IV X1 ONE Stop: 07/07/24 22:02 Piperacillin Sod/Tazobactam (Sod 3.375 gm/ Sodium Chloride) 50 mls @ 100 mls/hr IV X1 ONE Stop: 07/07/24 21:44 Last Infusion: 07/07/24 22:51 Dose: Infused Sodium Chloride (Ns) 1,000 mls @ 999 mls/hr IV .Q1H1M ONE Stop: 07/07/24 22:38 Last Infusion: 07/07/24 23:33 Dose: Infused Doxycycline Hyclate 100 mg/ (Sodium Chloride) 100 mls @ 100 mls/hr IV X1 ONE Stop: 07/08/24 00:00 Last Admin: 07/08/24 00:46 Dose: 100 mls/hr Ondansetron HCl (Ondansetron Inj 2 Mg/Ml Inj 2 Ml) 4 mg IV X1 ONE; Protocol Stop: 07/07/24 20:38 Last Admin: 07/07/24 20:44 Dose: 4 mg Assessment & Plan Plan Patient is a 64 year old male with PMH of small cell lung cancer s/p radiation on chemotherapy who presents to the ER for syncope and admitted for septic shock, acute hypoxic respiratory failure secondary to post-obstructive pneumonia. 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 CARDIOVASCULAR Pressors: levophed #Shock Septic versus hypovolemic in the setting of post-obstructive pneumonia Patient recieved 3L IVF in ER + 1 PRBC - levophed prn, titrate to MAP > 65 - Treat underlying sepsis as below #Tachycardia In the setting of sepsis versus dehydration, improved with IVF - Check TSH RESPIRATORY #Acute hypoxic respiratory failure Secondary to post-obstructive pneumonia in the setting of small-cell lung cancer Not on home oxygen Less likely due to PE as CTA negative CTA: extensive left lung pneumonia prominent at the left lung base - Continue O2, wean as tolerated RENAL #Lactic acidosis, resolved GI #Hyperbilirubinemia No gallstones seen on CT in June. Due to mets? - liver u/s ENDO No acute problems HEME/ONC #Pancytopenia #Neutropenic Fever #Small cell lung cancer with mets to liver, bone Follows Dr. Pena, Dr. Ugarte Absolute neutrophil count 144 Recieved 1 unit of PRBC in ED - Consider neuprogen - Avoid chemical anticoagulation as platelets < 50 ID #Septic shock secondary to post-obstructive pneumonia Hypotension, lactic acid, hypoxia and elevated procalcitonin - Follow up blood cultures, sputum culture, urine culture - Follow up cocci, RSV, legionella, flu - Vanc, cefepime, azithromycin (07/08- Health Maintenance Disposition: Admit to ICU for septic shock, neutropenic fever post-obstructive PNA Diet and fluids: regular DVT prophylaxis: SCD GI prophylaxis: famotidine Lines: port-a-cath, 2 PIV, Zhao CODE STATUS: FULL I have reviewed and discussed the patient's care with my attending, Dr. Amara Sanchez MD PGY-3 Attending Provider Attestation/Addendum I attest that I was physically present for the evaluation, physical examination, lab and imaging review of the patient with the residents. I discussed the case with the residents and agree with the findings and plans of care as documented above. Patient is a 64 years old male with past medical history of small cell lung cancer status post radiation therapy and ongoing chemotherapy who presented to the ED with complaint of an episode of syncope. Patient had an appointment at cancer treatment Center this afternoon during which she had an episode of loss of consciousness. EMS was called and he was sent to the ED. As per the family at bedside, patient has been feeling weak for last 5 to 6 days. Denied any fever, chest pain, headache, nausea, vomiting, abdominal pain, dysuria. In the ED, he was tachycardic with pulse up to 150s, he also had temperature of 102.2 ?F. Initially, blood pressure was also low. On labs he was pancytopenic with WBC of 1.3, hemoglobin 7.8 and platelets 57. Repeat CBC shows WBC of less than 0.4 with absolute neutrophil count of 100. His glucose is 193, lactic acid 2.5, albumin 1.4, ALT 72, ALP 140 and procalcitonin 1.16. CTA chest was obtained, which shows extensive left lung pneumonia prominent at the left lung base and mild pneumonia on right base. Patient's blood pressure improved after IV fluid boluses. He was also started on high flow nasal cannula, 20 L, 50 FiO2 at the time of exam. Patient also received 1 unit of PRBC. Given patient's labile blood pressure, sepsis in setting of severe neutropenia, need of high amount of supplemental oxygen, we will admit him to ICU for close monitoring and further management. Started him on broad-spectrum antibiotics, IV vancomycin, cefepime and azithromycin. We will obtain culture results, flu, cocci, COVID, Legionella. Patient's tachycardia appears to be from sepsis, and has regular rate and rhythm, improving with IV fluids, we will continue to monitor closely. Patient also noted to have hyperbilirubinemia, we will obtain liver ultrasound. We will also have Levophed gtt. standby if patient's blood pressure goes low again. Maliha Maloney MD
[2024-07-08] MEDS: VANCOMYCIN/NS 1 GM IVPB 200 ML IV (01:59)
--- NOTE | 2024-07-08 02:18 | XR_ITS ---
Examination: Abdomen sonogram, Limited Date and time of exam: July 08, 2024 at 0322 hours INDICATIONS: Septic shock, hyperbilirubinemia on laboratory examination today Technique: Real-time [place] scale transabdominal sonographic images of the upper abdomen obtained. Findings: Minimal gallbladder sludge No gallstones, gallbladder wall 0.3 cm Common bile duct 0.3 cm Pancreatic head 1.8 cm Liver 15.3 cm fatty infiltration smooth contour Normal hepatopedal portal venous flow Patent IVC IMPRESSION: Negative for cholelithiasis, negative for cholecystitis Liver normal size with fatty infiltration
--- NOTE | 2024-07-08 02:26 | PC.NURSE ---
BP going down. Pt actualy looks better and states he feels better. Notified Dr. Brambila.Marie. boaz bond.
[2024-07-08] MEDS: Norepinephrine/D5W 8mg/250ml 8 MG/250 ML BAG 6.804 MG IV (02:45)
--- NOTE | 2024-07-08 03:27 | PC.NURSE ---
Pt was moved from rm 1 to my rm rm 7 at opprox [id number]. report recieved from FREDIS Sheridan. Apon my assessment i discovered pt had a fever of 102.4. HR was 128. Pt had a 20 G [place] to L ac. Pts bp was systolic in the 80s. I spoke with Dr Darnell about pts condition. Immediatly got orders for NS bolus and tylenol. Second IV was placed 18 to the R AC. PT has a portacath to R chest noted to be accessed by Nurse for chemo RADIOGRAPHY TECHNICIAN here. I did not use the portacath.Just prior to starting a unit of blood, after 2L of NS , pts bp dropped. Pt looked good. face was pink and pt said ciara feels much better. unit of blood was begun and I spoke with DR Garcia and started norepi. FREDIS sweeney joined me in the care of pt around the time norepi was started. Report given to FREDIS Sweeney.
--- NOTE | 2024-07-08 04:15 | PC.RT ---
pt unable to expectorate sputum on his own. pt brought to ICU due to low blood pressure and use of vasopressors. pt is not stable at this time. Dr. Bowling would like to wait for sputum induction at this time until patients stabilizes. will attempt again at a later time.
[2024-07-08 05:04] LABS: Respiratory Syncytial Virus Ag Negative (Negative)
--- NOTE | 2024-07-08 05:15 | PRELIM_ITS ---
Right upper quadrant abdominal ultrasound with Doppler and wave Doppler spectral analysis. July 08, 2024 at 0322 hours Clinical history: Hyperbilirubinemia. Technique: Grayscale and color flow images of the right upper quadrant are provided. Hepatic and portal veins were also imaged with color flow images. Comparison: None. Findings: The liver demonstrates increased echogenicity. No intrahepatic biliary ductal dilatation. Gallbladder wall thickening. Gallbladder sludge at the gallbladder neck. No gallbladder calculus or pericholecystic fluid is demonstrated. The common bile duct is normal in caliber at 3.4 mm. The pancreas is unremarkable to the extent visualized. The portal vein is patent with hepatopetal flow and normal wave Doppler spectral analysis. The hepatic veins are patent. Impression: Gallbladder sludge associated with gallbladder wall thickening, suspicious for acute cholecystitis. Liver steatosis. Report Electronically Signed By: Maximino Wheeler 07/08/2024 5:14:51 AM [EST]
[2024-07-08 05:32] LABS: Basophils % (Auto) 0 % (0-2.5); Eosinophils % (Auto) 0 % (0-10); Hematocrit 22.6 % (41.0-53.0); Immature Granulocytes % (Auto) 0 % (0-0); Lymphocytes # (Auto) 0.2 Thou/mm3 (1.0-4.8); Lymphocytes % (Auto) 59 % (10-50); Mean Corpuscular Hemoglobin 32.1 pg (25.0-35.0); Mean Corpuscular Volume 92 fL (80-100); Monocytes % (Auto) 9 % (0-12); Neutrophils # (Auto) 0.1 Thou/mm3 (1.8-7.7); Neutrophils % (Auto) 32 % (37-80); Nucleated Red Blood Cell % 0 /100 WBC (0); RDW Standard Deviation 53.8 fL (35.1-43.9); Red Blood Count 2.46 Miln/mm3 (4.50-5.90)
[2024-07-08 06:36] LABS: Alanine Aminotransferase 55 U/L (10-49); Albumin, Serum 3.3 gm/dL (3.4-4.8); Albumin/Globulin Ratio 1.4 (1.2-2.2); Alkaline Phosphatase 110 U/L (46-116); Anion Gap 11 (7-16); Aspartate Amino Transferase 33 U/L (0-34); BUN/Creatinine Ratio 25 Ratio (12-20); Bilirubin,Total 1.4 mg/dL (0.3-1.2); Blood Urea Nitrogen 28 mg/dL (9-23); Calcium 7.9 mg/dL (8.3-10.6); Calcium (Corrected) 8.5 mg/dL (8.5-10.1); Carbon Dioxide 19.6 mMol/L (20.0-31.0); Chloride 109 mMol/L (98-107); Creatinine (Component) 1.1 mg/dL (0.6-1.3); Estimated Creatinine Clearance 66.6 mL/min (>60); Globulin 2.3 gm/dL (2.3-3.5); Glucose 127 mg/dL (74-106); Magnesium 1.6 mg/dL (1.6-2.6); Osmolality,Calculated 286 (275-295); Potassium 4.6 mMol/L (3.4-5.1); Sodium 140 mMol/L (136-145); Thyroid Stimulating Hormone 0.42 uIU/mL (0.55-4.78); Total Protein 5.6 gm/dL (5.7-8.2); eGFR > 60 See Note
[2024-07-08 06:46] LABS: Hemoglobin 7.9 g/dL (13.5-16.0); Platelet Count 44 Thou/mm3 (140-440); White Blood Count < 0.4 Thou/mm3 (3.8-10.6)
[2024-07-08 06:48] LABS: Slide Review Platelets confirmed
[2024-07-08] MEDS: CEFEPIME INJ 2 GM in SODIUM CHLORIDE 0.9% (Popper) 50 ML IV ×2 (08:43→21:34)
[2024-07-08] MEDS: FAMOTIDINE 20 MG TABLET PO ×2 (08:43→08:44)
[2024-07-08 08:44] LABS: Collection Type, Urine Clean Catch
[2024-07-08 08:56] LABS: Bilirubin,Urine Negative (Negative); Blood,Urine Trace (Negative); Clarity,Urine Clear (Clear/Hazy); Color,Urine Yellow (Lt Yel-Yel); Glucose, Urine Negative (Negative); Ketones,Urine Negative (Negative); Leukocyte Esterase,Urine Negative (Negative); Nitrite,Urine Negative (Negative); Protein,Urine Negative (Neg - Trace); RBC,Urine 8 /hpf (0-3); Squamous Epithelial Cell,Urine < 1 /hpf (0-5); Urobilinogen,Urine Negative mg/dL (0.0-1.0); WBC,Urine 1 /hpf (0-5)
[2024-07-08] MEDS: ACETAMINOPHEN 325 MG TABLET 650 MG PO ×2 (09:04→19:30)
[2024-07-08] MEDS: AZITHROMYCIN INJ 500 MG in SODIUM CHLORIDE 0.9% 250 ML 250 ML 250 MG IV (12:44)
[2024-07-08] MEDS: MICAFUNGIN SODIUM INJ 100 MG in SODIUM CHLORIDE 0.9% 100 ML IV (12:44)
[2024-07-08] MEDS: FILGRASTIM INJ (ZARXIO) 480 MCG/0.8 ML SYRINGE SC (12:44)
[2024-07-08 14:02] LABS: Cocci Serology, IgM Negative (Negative)
--- NOTE | 2024-07-08 14:56 | PC.SS ---
FISHERIES TECHNICIAN conducted bedside contact with the patient conduct initial assessment and to discuss discharge planning.? Present at bedside with patient was son, Mehran Garza .? Patient?s son provided translation on behalf of the patient.? Patient resides at home with spouse.? Patient does not utilize any form of DME to assist with ambulation.? Patient does not utilize home oxygen.? Patient currently on 6L of oxygen.? Patient describes the ability to complete ADL?s independently.? Patient identified brother, Jorge Garza ; as medical surrogate decision maker.? Patient?s PCP is Murtaza Ceja.? Patient?s oncologist is Dr. Ugarte.? Patient recently begin chemotherapy.? Patient does not participate with dialysis.? Patient utilizes [facility] for medication services.? If home oxygen required at the time of discharge, no preferred vendor identified.? Plan is for the patient to return home at the time of discharge.? Family will provide transportation on behalf of the patient. No discharge needs identified by the patient.? No further intervention required at this time, social media marketing manager will be available to address any further concerns.? Next of Kin: Jorge Garza D/C Plan: Home
--- NOTE | 2024-07-08 15:00 | PD.RESPRO ---
Documentation for date of: 07/08/24 Subjective Subjective Interval history: 64 year old male with PMH of small cell lung cancer s/p radiation on chemotherapy who presented to the ER for syncope. Patient was at his oncologist appointment earlier this afternoon to review imaging when patient became confused and had a syncopal event. He was given fluids through his port and taken to the ER. Per family at bedside, patient has been feeling weak for the last 5-6 days. 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 On arrival patient was hypotensive, Tachycardic, Febrile, WBC count less than 0.4, CG showed left lower lung pneumonia. Patient was started on pressors and admitted to ICU for management of septic shock. .07/08/24: No acute overnight events, patient awake and oriented, speaks uzbek. Still o pressors Levophed 0.11. We will add Filgrastim and micafungin. Continue cefepime and vancomycin. Still requiring 10L oxy mask. During previous admission at [place] patient was found to have left lower lung pneumonia as well, medical records requested to look for causative organism since it is most likely the same one Exam Vital Signs Temp Pulse Resp BP Pulse Ox O2 Del Method O2 Flow Rate 98.7 F 109 H 26 H 97/65 96 High Flow Nasal Cannula 10 07/08/24 11:08 07/08/24 14:00 07/08/24 14:00 07/08/24 14:00 07/08/24 14:00 07/08/24 00:28 07/08/24 04:12 FiO2 65 07/08/24 02:16 Narrative Exam GENERAL: Awake, alert and oriented. No acute distress. Oxy mask in place HEENT: Normocephalic, atraumatic and nontender.? Pupils are equal and reactive to light and accommodation.? Oral mucosa moist. NECK: Supple without adenopathy. Traquea midline. Nontender, carotid pulse 2+ bilaterally without bruits, no JVD.? CHEST: Heart rate and rythm normal, no murmurs, gallops auscultated. S1 & 2 normal insensity. Nontender on palpation, no deformity and no crepitus. LUNGS: bronchial sounds left lower lung, right side clear to ausculutation. on oxy mask 10 liters ABDOMEN: Soft,symmetric , nontender, no guarding or rebound tenderness. No abnormal masses palpated.? No pulsatile masses or bruits.? Bowel sounds are normoactive in all 4 quadrants. EXTREMITIES: Nontender.? No pitting edema.? No cyanosis.? Patient is able to move all 4 extremities. SKIN: No rashes noted. NEURO:? Cranial nerves intact.? There is no focalization.? GCS is 15. Objective Labs 07/14/24 05:09 07/14/24 05:09 Labs: Laboratory Results - last 24 hr 07/07/24 07/07/24 07/07/24 16:08 16:47 19:36 WBC 1.3 L RBC 2.52 L Hgb 7.9 L Hct 23.4 L MCV 93 MCH 31.3 MCHC 33.8 RDW Std Deviation 56.1 H Plt Count 57 L D Neut % (Auto) 53 Lymph % (Auto) 40 Humphreys % (Auto) 5 Eos % (Auto) 0 Baso % (Auto) 0 Neut # (Auto) 0.7 L Lymph # (Auto) 0.5 L Humphreys # (Auto) 0.1 Eos # (Auto) 0.0 Baso # (Auto) 0.0 Immature Gran # (Auto) 0.03 H Absolute Nucleated RBC 0.00 Immature Gran % 2 H Nucleated RBC % 0 PT 10.9 INR 1.0 APTT 26.4 Sodium 137 Potassium 4.4 Chloride 106 Carbon Dioxide 23.4 Anion Gap 8 BUN 31 H Creatinine 1.2 Estim Creat Clear Calc 56.1 L eGFR > 60 BUN/Creatinine Ratio 26 H Glucose 153 H Calculated Osmolality 283 Lactic Acid Calcium 8.7 Corrected Calcium 8.9 Phosphorus Magnesium 2.0 Total Bilirubin 0.8 AST 32 ALT 74 H Alkaline Phosphatase 156 H Lactate Dehydrogenase 154 Troponin I < 0.020 B-Natriuretic Peptide 43 Total Protein 6.3 Albumin 3.7 Globulin 2.6 Albumin/Globulin Ratio 1.4 Lipase Procalcitonin TSH Free T4 Ur Collection Type Clean Catch Urine Color Yellow Urine Clarity Clear Urine pH 6.0 Ur Specific [place] 1.027 Urine Protein Trace Urine Glucose (UA) Negative Urine Ketones Negative Urine Blood Negative Urine Nitrite Negative Urine Bilirubin Negative Urine Urobilinogen (Auto) Negative Ur Leukocyte Esterase Negative Urine RBC 7 H Urine WBC 3 Ur Squamous Epith Cells < 1 Urine Bacteria Rare Urine Opiates Screen Positive A Urine Fentanyl Screen Negative Ur Barbiturates Screen Negative U Amphetamin/Meth Scrn Negative U Benzodiazepines Scrn Negative U Cocaine Metab Screen Negative U Marijuana (THC) Screen Negative Coccidioides IgM Ab RSV Rapid Misc Test Result Platelets confirmed Blood Type A Positive Antibody Screen NEGATIVE Crossmatch See Detail Blood Bank Wristband ID Yes 07/07/24 07/07/24 07/08/24 21:21 22:13 01:10 WBC < 0.4 L* D Cancelled RBC 2.46 L Cancelled Hgb 7.8 L Cancelled Hct 22.5 L Cancelled MCV 92 Cancelled MCH 31.7 Cancelled MCHC 34.7 Cancelled RDW Std Deviation 56.3 H Cancelled Plt Count 43 L D Cancelled Neut % (Auto) 36 L Cancelled Lymph % (Auto) 57 H Cancelled Humphreys % (Auto) 7 Cancelled Eos % (Auto) 0 Cancelled Baso % (Auto) 0 Cancelled Neut # (Auto) 0.1 L Cancelled Lymph # (Auto) 0.2 L Cancelled Humphreys # (Auto) 0.0 Cancelled Eos # (Auto) 0.0 Cancelled Baso # (Auto) 0.0 Cancelled Immature Gran # (Auto) 0.00 Cancelled Absolute Nucleated RBC 0.00 Cancelled Immature Gran % 0 Cancelled Nucleated RBC % 0 Cancelled PT INR APTT Sodium 138 Potassium 4.7 Chloride 107 Carbon Dioxide 20.3 Anion Gap 11 BUN 34 H Creatinine 1.3 Estim Creat Clear Calc 51.8 L eGFR > 60 BUN/Creatinine Ratio 26 H Glucose 193 H Calculated Osmolality 288 Lactic Acid 2.9 H 2.5 H 1.8 Calcium 8.8 Corrected Calcium 9.0 Phosphorus 3.1 Magnesium 1.7 Total Bilirubin 1.4 H D AST 30 ALT 72 H Alkaline Phosphatase 140 H Lactate Dehydrogenase 175 Troponin I < 0.020 B-Natriuretic Peptide 54 Total Protein 6.3 Albumin 3.7 Globulin 2.6 Albumin/Globulin Ratio 1.4 Lipase 21 Procalcitonin 0.44 1.16 H TSH Free T4 Cancelled Ur Collection Type Urine Color Urine Clarity Urine pH Ur Specific [place] Urine Protein Urine Glucose (UA) Urine Ketones Urine Blood Urine Nitrite Urine Bilirubin Urine Urobilinogen (Auto) Ur Leukocyte Esterase Urine RBC Urine WBC Ur Squamous Epith Cells Urine Bacteria Urine Opiates Screen Urine Fentanyl Screen Ur Barbiturates Screen U Amphetamin/Meth Scrn U Benzodiazepines Scrn U Cocaine Metab Screen U Marijuana (THC) Screen Coccidioides IgM Ab RSV Rapid Misc Test Result Platelets confirmed Blood Type Antibody Screen Crossmatch Blood Bank Wristband ID 07/08/24 07/08/24 07/08/24 02:22 04:56 06:30 WBC < 0.4 L* RBC 2.46 L Hgb 7.9 L Hct 22.6 L MCV 92 MCH 32.1 MCHC 35.0 RDW Std Deviation 53.8 H Plt Count 44 L Neut % (Auto) 32 L Lymph % (Auto) 59 H Humphreys % (Auto) 9 Eos % (Auto) 0 Baso % (Auto) 0 Neut # (Auto) 0.1 L Lymph # (Auto) 0.2 L Humphreys # (Auto) 0.0 Eos # (Auto) 0.0 Baso # (Auto) 0.0 Immature Gran # (Auto) 0.00 Absolute Nucleated RBC 0.00 Immature Gran % 0 Nucleated RBC % 0 PT INR APTT Sodium 140 Potassium 4.6 Chloride 109 H Carbon Dioxide 19.6 L Anion Gap 11 BUN 28 H Creatinine 1.1 Estim Creat Clear Calc 66.6 eGFR > 60 BUN/Creatinine Ratio 25 H Glucose 127 H D Calculated Osmolality 286 Lactic Acid Calcium 7.9 L Corrected Calcium 8.5 Phosphorus Magnesium 1.6 Total Bilirubin 1.4 H AST 33 ALT 55 H Alkaline Phosphatase 110 D Lactate Dehydrogenase Troponin I B-Natriuretic Peptide Total Protein 5.6 L Albumin 3.3 L Globulin 2.3 Albumin/Globulin Ratio 1.4 Lipase Procalcitonin TSH 0.42 L Free T4 Ur Collection Type Clean Catch Urine Color Yellow Urine Clarity Clear Urine pH 5.0 Ur Specific [place] 1.040 H Urine Protein Negative Urine Glucose (UA) Negative Urine Ketones Negative Urine Blood Trace Urine Nitrite Negative Urine Bilirubin Negative Urine Urobilinogen (Auto) Negative Ur Leukocyte Esterase Negative Urine RBC 8 H Urine WBC 1 Ur Squamous Epith Cells < 1 Urine Bacteria None Urine Opiates Screen Urine Fentanyl Screen Ur Barbiturates Screen U Amphetamin/Meth Scrn U Benzodiazepines Scrn U Cocaine Metab Screen U Marijuana (THC) Screen Coccidioides IgM Ab Negative RSV Rapid Negative Misc Test Result Platelets confirmed Blood Type Antibody Screen Crossmatch Blood Bank Wristband ID Quality Measures Quality Measures VTE prophylaxis and sepsis Current suspected stage: septic shock (LA >4 and/or hypotension) Sepsis reassessment completed at (date): 07/08/24 Sepsis reassessment completed at (time): 10:00 Possible source: pulmonary Blood cultures ordered: yes Antibiotic ordered: Yes Assessment & Plan Assessment Current Active Medications: Generic Name Dose Route Start Last Admin Trade Name Freq PRN Reason Stop Dose Admin Acetaminophen 650 mg 07/08/24 01:33 07/08/24 09:04 Acetaminophen 325 Mg Tablet PO 08/07/24 01:32 650 mg Q6H PRN Administration Fever >101.5 Hydrocodone Bitart/Acetaminophen 1 tab 07/08/24 01:33 Hydrocodone/Apap 5/325 Tablet PO 07/13/24 01:32 Q4HR PRN PAIN SCALE 4-6 (Moderate Hydrocodone Bitart/Acetaminophen 1 tab 07/08/24 01:33 Hydrocodone/Apap 10/325 Tab PO 07/13/24 01:32 Q4H PRN Pain Scale 7-10 (Moderate Famotidine 20 mg 07/08/24 09:00 07/08/24 08:44 Famotidine 20 Mg Tablet PO 08/07/24 08:59 20 mg BID ARI Administration Norepinephrine/Dextrose 8 mg in 250 mls @ 6.804 mls/hr 07/08/24 01:39 07/08/24 09:17 Levophed In D5w 8mg/250ml IV 08/07/24 01:38 0.09 mcg/kg/min .Q24H PRN 12.247 mls/hr PER PROTOCOL Titration Protocol 0.05 MCG/KG/MIN Cefepime HCl 2 gm/ Sodium 50 mls @ 100 mls/hr 07/08/24 01:40 07/08/24 08:43 Chloride IV 07/15/24 01:39 100 mls/hr Q12HR ARI Administration Vancomycin HCl/Dextrose 250 mls @ 120 mls/hr 07/08/24 22:00 Vancomycin/D5w 1,250 Mg Ivpb IV 07/15/24 21:59 DAILY@2200 ARI Micafungin Sodium 100 mg/ 100 mls @ 100 mls/hr 07/08/24 11:00 07/08/24 12:44 Sodium Chloride IV 08/07/24 10:59 100 mls/hr QDAY ARI Administration Azithromycin 500 mg/ Sodium 250 mls @ 250 mls/hr 07/08/24 11:15 07/08/24 12:44 Chloride IV 07/15/24 01:39 250 mls/hr QDAY ARI Administration Ondansetron HCl 4 mg 07/08/24 01:33 Ondansetron Inj 2 Mg/Ml Inj 2 Ml IV 08/07/24 01:32 Q6H PRN NAUSEA OR VOMITING Protocol Pharmacy Consult 1 each 07/08/24 09:00 Vancomycin Pharmacy To Dose 1 Each Each IV 08/07/24 08:59 QDAY PRN CONSULT Sennosides 1 tab 07/08/24 02:48 Senna Tablet PO 08/07/24 08:59 QDAY PRN CONSTIPATION Protocol Plan 64 year old male with PMH of small cell lung cancer s/p radiation on chemotherapy who presented to the ER for syncope. Patient was at his oncologist appointment earlier this afternoon to review imaging when patient became confused and had a syncopal event. He was given fluids through his port and taken to the ER. Per family at bedside, patient has been feeling weak for the last 5-6 days. 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 On arrival patient was hypotensive, Tachycardic, Febrile, WBC count less than 0.4, CG showed left lower lung pneumonia. Patient was started on pressors and admitted to ICU for management of septic shock. .07/08/24: No acute overnight events, patient awake and oriented, speaks uzbek. Still o pressors Levophed 0.11. We will add Filgrastim and micafungin. Continue cefepime and vancomycin. Still requiring 10L oxy mask. 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 #Septic shock -Lactic acid on arrival 2.8, neutropenia, febrile, tachycardic, procalcitonin 1.16, source pneumonia left lung -Received 4 L fluid in the ER -Currently on Levophed 0.1 Respiratory #Acute hypoxic respiratory failure due to #Left lower lung pneumonia -CTA negative for PE, left lower lobe pneumonia, During previous admission at [place] patient was found to have left lower lung pneumonia as well, medical records requested to look for causative organism since it is most likely the same one GI #Hyperbilirubinemia -Due to hepatic mets Endo -stable Heme-onc #Small cell lung cancer diagnosed in 2022, initially diagnosed as limited disease, completed treatment with chemoradiation, however in 2023 patient started complaining of back pain had a CT scan done which showed with hepatic, adrenal and bone metastases. Currently on chemotherapy. #Pancytopenia -In the setting of chemotherapy, WBCs less than 0.4, hemoglobin 7.9, received 1 unit in the ER, platelets 44 -Spoke with patient's oncologist Dr. Rutledge who recommended filgrastim, started ID #Septic shock due to pneumonia -As evidenced on CT -Pending blood cultures and previous medical records to look for sputum cultures from previous admission at [facility] -Pending cocci -Continue vancomycin and cefepime -Continue micafungin due to neutropenia Disposition: Admitted to ICU for management of septic shock Diet and fluids: Regular diet DVT prophylaxis: Holding chemical prophylaxis due to platelets being under 50 GI prophylaxis: Pepcid CODE STATUS: Full code Zhao: No Lines: Port and peripheral Patient's care discussed with attending physician, Dr Reece Forrest MD PG3 Attending Provider Attestation/Addendum Patient seen and examined with the above resident, Gaviota Forrest MD. I agree with the findings, assessment and plan of care as documented. Patient remains in septic shock 2/2 neutropenic sepsis. Source of infection appears to be pulmonary and he has advanced stage malignancy on chemotherapy for SCLC. Will obtain history form providers about radiation. There is some level of language barrier though staff trying to keep patient up to date using stripper and taper service. He is also significantly fatigued though oriented to ongoing illness. His nephew is at beside as well and speaks [place]. Able to bring in medications also. Patient with pulmonary source most likely but we will also contact primary architectural model maker as he was at OSH with pneumonia as well. Also contacted oncology at our center who has been managing patient. Will start on neupogen and add antifungal therapy, micafungin better option though azole could be considered. I doubt this is related to endemic coccidiodomycosis clinically. Favor bacterial infection as most likely causative agent. Patient will likely be able to be weaned off of pressors in coming days. Favor trasfusion for volume expansion as appropriate. Remains on broad spectrum antibiotics appropriately. Wean off oxygen as able. Total critical care time: I personally spent 40 minutes for review of physiologic parameters, directing plan of care, coordination of care with other subspecialists, and counseling patient at bedside. This is exclusive of time spent teaching housestaff or performing any separate billable procedures. Patient continues to require critical care services due to septic shock/ neutropenic sepsis, acute respiratory failure, and stage IV SCLC. He remains at significant risk for further morbidity and mortality warranting close monitoring and care in the ICU.
[2024-07-08 16:45] LABS: Path Review Blood Smear Sent to Pathologist
[2024-07-08] MEDS: VANCOMYCIN/D5W 1,250 MG IVPB 250 ML 120 MG IV (21:34)
[2024-07-09] VITALS (93 sets, daily range): BP systolic 80–150; BP diastolic 47–85; PULSE 78–121; RESP 16–31; TEMP 36.9–38.8; O2SAT 89–99
[2024-07-09] MEDS: ACETAMINOPHEN 325 MG TABLET 650 MG PO ×3 (03:19→18:44)
[2024-07-09] MEDS: Norepinephrine/D5W 8mg/250ml 8 MG/250 ML BAG 6.804 MG IV (05:20)
[2024-07-09 05:45] LABS: Basophils % (Auto) 0 % (0-2.5); Eosinophils % (Auto) 0 % (0-10); Immature Granulocytes % (Auto) 0 % (0-0); Lymphocytes # (Auto) 0.2 Thou/mm3 (1.0-4.8); Lymphocytes % (Auto) 52 % (10-50); Mean Corpuscular HGB Conc 35.2 g/dl (31.0-37.0); Mean Corpuscular Hemoglobin 32.4 pg (25.0-35.0); Mean Corpuscular Volume 92 fL (80-100); Monocytes % (Auto) 9 % (0-12); Neutrophils # (Auto) 0.1 Thou/mm3 (1.8-7.7); Neutrophils % (Auto) 39 % (37-80); Nucleated Red Blood Cell % 0 /100 WBC (0); RDW Standard Deviation 52.9 fL (35.1-43.9)
[2024-07-09 05:49] LABS: Hematocrit 19.3 % (41.0-53.0); Hemoglobin 6.8 g/dL (13.5-16.0); Platelet Count 20 Thou/mm3 (140-440); White Blood Count < 0.4 Thou/mm3 (3.8-10.6)
[2024-07-09 05:50] LABS: Slide Review Platelets confirmed
[2024-07-09 06:23] LABS: Alanine Aminotransferase 34 U/L (10-49); Albumin, Serum 3.1 gm/dL (3.4-4.8); Albumin/Globulin Ratio 1.4 (1.2-2.2); Alkaline Phosphatase 114 U/L (46-116); Anion Gap 10 (7-16); Aspartate Amino Transferase 14 U/L (0-34); BUN/Creatinine Ratio 17 Ratio (12-20); Bilirubin,Total 1.3 mg/dL (0.3-1.2); Blood Urea Nitrogen 19 mg/dL (9-23); Calcium 7.6 mg/dL (8.3-10.6); Calcium (Corrected) 8.3 mg/dL (8.5-10.1); Carbon Dioxide 22.1 mMol/L (20.0-31.0); Chloride 104 mMol/L (98-107); Creatinine (Component) 1.1 mg/dL (0.6-1.3); Estimated Creatinine Clearance 66.3 mL/min (>60); Globulin 2.2 gm/dL (2.3-3.5); Glucose 111 mg/dL (74-106); Magnesium 1.6 mg/dL (1.6-2.6); Osmolality,Calculated 275 (275-295); Potassium 3.2 mMol/L (3.4-5.1); Sodium 136 mMol/L (136-145); Total Protein 5.3 gm/dL (5.7-8.2); eGFR > 60 See Note
[2024-07-09] MEDS: CEFEPIME INJ 2 GM in SODIUM CHLORIDE 0.9% (Popper) 50 ML IV ×2 (08:00→20:52)
[2024-07-09] MEDS: POTASSIUM CHLORIDE 20 mEq TABCR 40 MEQ PO (08:01)
[2024-07-09] MEDS: FAMOTIDINE 20 MG TABLET PO ×2 (08:01→20:52)
--- NOTE | 2024-07-09 08:47 | ESPR_ITS ---
Documentation for date of: 07/09/24 Subjective Subjective Interval history: 64 year old male with PMH of small cell lung cancer s/p radiation on chemotherapy who presented to the ER for syncope. Patient was at his oncologist appointment earlier this afternoon to review imaging when patient became confused and had a syncopal event. He was given fluids through his port and taken to the ER. Per family at bedside, patient has been feeling weak for the last 5-6 days. 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 On arrival patient was hypotensive, Tachycardic, Febrile, WBC count less than 0.4, CG showed left lower lung pneumonia. Patient was started on pressors and admitted to ICU for management of septic shock. .07/08/24: No acute overnight events, patient awake and oriented, speaks icelandic. Still o pressors Levophed 0.11. We will add Filgrastim and micafungin. Continue cefepime and vancomycin. Still requiring 10L oxy mask. During previous admission at [facility] patient was found to have left lower lung pneumonia as well, medical records requested to look for causative organism since it is most likely the same one. 07/09/2024: No acute overnight events. Patient stated feeling a lot better today and was AO x 3. Patient was on 0.03 of Levophed this morning, but was later on take it off vasopressors in the morning. Patient did spike a fever of 101 earlier today he was given some Tylenol. Will continue with filgrastim until ANC above 2000. If patient continues to have stable blood pressure off vasopressors we will most likely downgrade to the medical floors later on today. No complaints at this time. Exam Vital Signs Temp Pulse Resp BP Pulse Ox O2 Del Method O2 Flow Rate 98.6 F 107 H 22 H 97/82 97 High Flow Nasal Cannula 1 07/09/24 08:01 07/09/24 08:01 07/09/24 08:01 07/09/24 08:01 07/09/24 08:01 07/08/24 00:28 07/08/24 15:45 FiO2 65 07/08/24 02:16 Narrative Exam General: A/O x3, no acute distress, on room air Eyes: PERRL, EOMI. Anicteric, vision grossly intact. Ears: No ear pain, no ear discharge, Hearing grossly intact. Nose: No nasal discharge. Mouth/Throat: Moist mucous membranes, no redness, no lesions. Neck: Neck supple, non-tender, no cervical lymphadenopathy. Lungs: Clear in R lung, but coarse breath sound in L lower lung No accessory muscle use. Cardio: Normal S1/S2, regular rhythm, no murmurs, no JVD Abdomen: Soft, non-tender, no palpable masses, peristalsis present, no guarding or rebound. Extremities: Symmetrical, no significant deformities, no peripheral edema , non-tender, peripheral pulses presents. Skin: No rashes, no lesions, warm to touch. Neuro: No focal neurological deficits. Objective Labs 07/14/24 05:09 07/14/24 05:09 Labs: Laboratory Results - last 24 hr 07/07/24 07/08/24 07/08/24 19:36 04:56 06:30 WBC RBC Hgb Hct MCV MCH MCHC RDW Std Deviation Plt Count Neut % (Auto) Lymph % (Auto) [place] % (Auto) Eos % (Auto) Baso % (Auto) Neut # (Auto) Lymph # (Auto) [place] # (Auto) Eos # (Auto) Baso # (Auto) Immature Gran # (Auto) Absolute Nucleated RBC Immature Gran % Nucleated RBC % Smear Path Review Sent to Pathologist Sodium Potassium Chloride Carbon Dioxide Anion Gap BUN Creatinine Estim Creat Clear Calc eGFR BUN/Creatinine Ratio Glucose Calculated Osmolality Calcium Corrected Calcium Magnesium Total Bilirubin AST ALT Alkaline Phosphatase Total Protein Albumin Globulin Albumin/Globulin Ratio Ur Collection Type Clean Catch Urine Color Yellow Urine Clarity Clear Urine pH 5.0 Ur Specific [place] 1.040 H Urine Protein Negative Urine Glucose (UA) Negative Urine Ketones Negative Urine Blood Trace Urine Nitrite Negative Urine Bilirubin Negative Urine Urobilinogen (Auto) Negative Ur Leukocyte Esterase Negative Urine RBC 8 H Urine WBC 1 Ur Squamous Epith Cells < 1 Urine Bacteria None Coccidioides IgM Ab Negative Misc Test Result Blood Type A Positive Antibody Screen NEGATIVE Crossmatch See Detail Blood Bank Wristband ID Yes Blood Bank Comment PLATP Ready 07/09/24 04:45 WBC < 0.4 L* RBC 2.10 L Hgb 6.8 L* Hct 19.3 L* MCV 92 MCH 32.4 MCHC 35.2 RDW Std Deviation 52.9 H Plt Count 20 L* D Neut % (Auto) 39 Lymph % (Auto) 52 H [place] % (Auto) 9 Eos % (Auto) 0 Baso % (Auto) 0 Neut # (Auto) 0.1 L Lymph # (Auto) 0.2 L [place] # (Auto) 0.0 Eos # (Auto) 0.0 Baso # (Auto) 0.0 Immature Gran # (Auto) 0.00 Absolute Nucleated RBC 0.00 Immature Gran % 0 Nucleated RBC % 0 Smear Path Review Sodium 136 Potassium 3.2 L D Chloride 104 Carbon Dioxide 22.1 Anion Gap 10 BUN 19 Creatinine 1.1 Estim Creat Clear Calc 66.3 eGFR > 60 BUN/Creatinine Ratio 17 Glucose 111 H Calculated Osmolality 275 Calcium 7.6 L Corrected Calcium 8.3 L Magnesium 1.6 Total Bilirubin 1.3 H AST 14 ALT 34 Alkaline Phosphatase 114 Total Protein 5.3 L Albumin 3.1 L Globulin 2.2 L Albumin/Globulin Ratio 1.4 Ur Collection Type Urine Color Urine Clarity Urine pH Ur Specific [place] Urine Protein Urine Glucose (UA) Urine Ketones Urine Blood Urine Nitrite Urine Bilirubin Urine Urobilinogen (Auto) Ur Leukocyte Esterase Urine RBC Urine WBC Ur Squamous Epith Cells Urine Bacteria Coccidioides IgM Ab Misc Test Result Platelets confirmed Blood Type Antibody Screen Crossmatch Blood Bank Wristband ID Blood Bank Comment Quality Measures Quality Measures VTE prophylaxis and sepsis Current suspected stage: sepsis Possible source: pulmonary Blood cultures ordered: yes Antibiotic ordered: Yes Assessment & Plan Assessment Current Active Medications: Generic Name Dose Route Start Last Admin Trade Name Freq PRN Reason Stop Dose Admin Acetaminophen 650 mg 07/08/24 01:33 07/09/24 03:19 Acetaminophen 325 Mg Tablet PO 08/07/24 01:32 650 mg Q6H PRN Administration Fever >101.5 Hydrocodone Bitart/Acetaminophen 1 tab 07/08/24 01:33 Hydrocodone/Apap 5/325 Tablet PO 07/13/24 01:32 Q4HR PRN PAIN SCALE 4-6 (Moderate Hydrocodone Bitart/Acetaminophen 1 tab 07/08/24 01:33 Hydrocodone/Apap 10/325 Tab PO 07/13/24 01:32 Q4H PRN Pain Scale 7-10 (Moderate Famotidine 20 mg 07/08/24 09:00 07/09/24 08:01 Famotidine 20 Mg Tablet PO 08/07/24 08:59 20 mg BID ARI Administration Norepinephrine/Dextrose 8 mg in 250 mls @ 6.804 mls/hr 07/08/24 01:39 07/09/24 07:41 Levophed In D5w 8mg/250ml IV 08/07/24 01:38 0.03 mcg/kg/min .Q24H PRN 4.082 mls/hr PER PROTOCOL Titration Protocol 0.05 MCG/KG/MIN Cefepime HCl 2 gm/ Sodium 50 mls @ 100 mls/hr 07/08/24 01:40 07/09/24 08:00 Chloride IV 07/15/24 01:39 100 mls/hr Q12HR ARI Administration Vancomycin HCl/Dextrose 250 mls @ 120 mls/hr 07/08/24 22:00 07/08/24 21:34 Vancomycin/D5w 1,250 Mg Ivpb IV 07/15/24 21:59 120 mls/hr DAILY@2200 ARI Administration Protocol Micafungin Sodium 100 mg/ 100 mls @ 100 mls/hr 07/08/24 11:00 07/08/24 12:44 Sodium Chloride IV 08/07/24 10:59 100 mls/hr QDAY ARI Administration Azithromycin 500 mg/ Sodium 250 mls @ 250 mls/hr 07/08/24 11:15 07/08/24 12:44 Chloride IV 07/15/24 01:39 250 mls/hr QDAY ARI Administration Ondansetron HCl 4 mg 07/08/24 01:33 Ondansetron Inj 2 Mg/Ml Inj 2 Ml IV 08/07/24 01:32 Q6H PRN NAUSEA OR VOMITING Protocol Pharmacy Consult 1 each 07/08/24 09:00 Vancomycin Pharmacy To Dose 1 Each Each IV 08/07/24 08:59 QDAY PRN CONSULT Sennosides 1 tab 07/08/24 02:48 Senna Tablet PO 08/07/24 08:59 QDAY PRN CONSTIPATION Protocol Plan 64-year-old male with past medical history of SCC lung cancer with metastasis s/p radiation chemotherapy (last chemotherapy on June 29, 2024) was admitted to the ICU on 07/08/2024 due to septic shock requiring vasopressors. 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 Patient coming with an initial lactic acid of 2.8 and down trended to 1.8 ? Patient received total of 4 L of IV fluid in the ER, but was not fluid responsive ? Patient received Levophed for around 24 hours ? Off vasopressors today Respiratory: #Acute hypoxic respiratory failure #Left lower lung pneumonia ? Chest x-ray on 07/07/2024 showed pneumonia pattern on left upper lobe ? Chest CTA did not show extensive left lung pneumonia more prominent on the left lung base ?Will continue with cefepime, vancomycin, azithromycin, add micafungin Renal: -Stable GI: #Hyperbilirubinemia ? Most likely in the setting of possible hepatic metastasis Endo: ? Stable Heme/oncology: #SCC lung cancer with metastasis s/p radiation and chemotherapy (last chemotherapy on June 29, 2024 ? Prior CTs showed metastatic disease #Pancytopenia ? Most likely in the setting of chemotherapy ? Will continue with filgrastim until ANC above 2000 ID: #Septic shock due to pneumonia ? Cocci negative ?Pending blood cultures, negative in the first 24 hours ? Will continue with vancomycin, cefepime, azithromycin, and micafungin Hospital Maintenance: Diet: Regular DVT ppx: held due to thrombocytopenia below 50 GI ppx: Pepcid IV lines: PIV, R Port Zhao: none Code status: Full Dispo: ICU for septic shock Case disclosed with Attending Dr. Reece Burton PGY1 Attending Provider Attestation/Addendum Patient seen and examined with the above resident, Lukas Burton MD. I agree with the findings, assessment, and plan of care as documented except for any differences below. Mentation back to baseline. Shock resolved. Will stop micafungin as favor bacterial infection with pulmonary source. House staff requested microbiology studies from outside hospital and contacted primary customer service agent in [facility]. Oncology input appreciated and will continue on GM-CSF given neutropenia. Patient and nephew updated on plan of care. Will transition to medicine [place]ajas. Must remain in reverse isolation now. Total critical care time: I personally spent 35 minutes for review of physiologic parameters, directing plan of care, coordination of care with other specialists, and counseling patient/ family at bedside. This is exclusive of time spent teaching housestaff or performing any separate billable procedures. Patient continues to require critical care services for neutropenic fever and sepsis/ shock. He remained at significant risk for further morbidity and mortality warranting close monitoring in the ICU.
[2024-07-09] MEDS: AZITHROMYCIN INJ 500 MG in SODIUM CHLORIDE 0.9% 250 ML 250 ML 250 MG IV (09:37)
[2024-07-09] MEDS: MICAFUNGIN SODIUM INJ 100 MG in SODIUM CHLORIDE 0.9% 100 ML IV (09:38)
[2024-07-09] MEDS: FILGRASTIM INJ (ZARXIO) 480 MCG/0.8 ML SYRINGE SC (09:58)
[2024-07-09 11:12] LABS: Cocci Serology, IgG Negative (Negative)
[2024-07-09] MEDS: SODIUM CHLORIDE 0.9% 500 ML 500 ML 999 ML IV ×2 (13:05→15:54)
--- NOTE | 2024-07-09 16:07 | PC.SS ---
Update: Patient is off of pressor support. Patient on room air. P.O. feeds, regular diet. Blood pressure remains slightly low. Possible downgrade.
--- NOTE | 2024-07-09 16:28 | ESPR_ITS ---
Documentation for date of: 07/09/24 Subjective Subjective Interval history: Patient is a downgrade from ICU for today. Patient is understanding that will be downgraded from ICU to floors overnight. Patient deneid chills but pyrexia since admission. Mild dry cough. Denied hematemsis or hemtaochezia. Patient denied shortness of breath. Patient received two units of RBCs on admission. Exam Vital Signs Temp Pulse Resp BP Pulse Ox O2 Del Method O2 Flow Rate 98.4 F 99 16 98/61 96 High Flow Nasal Cannula 1 07/09/24 13:16 07/09/24 15:45 07/09/24 15:45 07/09/24 15:45 07/09/24 15:45 07/08/24 00:28 07/08/24 15:45 FiO2 65 07/08/24 02:16 Narrative Exam General Appearance: Alert & Oriented X3, thin male who is lying in bed in no acute distress HEENT: Skull symmetrical and atraumatic. Conjunctivae pin and moist. Pupils equal, round, reactive to light and accommodation (PERRL). External ear without lesion or discharge. Straight, nares patient, mucosa pink, no discharge. Cardio: Normal Rate and Rhythm with S1 and S2 heart sounds. No murmurs or extra heart sounds auscultated. No bruits on carotid auscultation. No peripheral edema or cyanosis. Lungs: Symmetric with good expansion. Chest and back non-tender. Breath sounds vesicular with some rhonchi appreciated Abdomen: Non-tender, Non-distended, Normal Reactive Bowel Sounds Neuro: Alert, cooperative, oriented to person, place, and time. Speech clear. CN grossly intact. Upper motor strength 5/5 and Lower motor strength 5/5. Sensation intact. Objective Labs 07/10/24 04:11 07/10/24 04:11 Labs: Laboratory Results - last 24 hr 07/07/24 07/08/24 07/09/24 19:36 04:56 04:45 WBC < 0.4 L* RBC 2.10 L Hgb 6.8 L* Hct 19.3 L* MCV 92 MCH 32.4 MCHC 35.2 RDW Std Deviation 52.9 H Plt Count 20 L* D Neut % (Auto) 39 Lymph % (Auto) 52 H [place] % (Auto) 9 Eos % (Auto) 0 Baso % (Auto) 0 Neut # (Auto) 0.1 L Lymph # (Auto) 0.2 L [place] # (Auto) 0.0 Eos # (Auto) 0.0 Baso # (Auto) 0.0 Immature Gran # (Auto) 0.00 Absolute Nucleated RBC 0.00 Immature Gran % 0 Nucleated RBC % 0 Smear Path Review Sent to Pathologist Sodium 136 Potassium 3.2 L D Chloride 104 Carbon Dioxide 22.1 Anion Gap 10 BUN 19 Creatinine 1.1 Estim Creat Clear Calc 66.3 eGFR > 60 BUN/Creatinine Ratio 17 Glucose 111 H Calculated Osmolality 275 Calcium 7.6 L Corrected Calcium 8.3 L Magnesium 1.6 Total Bilirubin 1.3 H AST 14 ALT 34 Alkaline Phosphatase 114 Total Protein 5.3 L Albumin 3.1 L Globulin 2.2 L Albumin/Globulin Ratio 1.4 Coccidioides IgG Ab Negative Misc Test Result Platelets confirmed Blood Type A Positive Antibody Screen NEGATIVE Crossmatch See Detail Blood Bank Wristband ID Yes Blood Bank Comment PLATP Ready Quality Measures Quality Measures VTE prophylaxis and sepsis Current suspected stage: ruled out Possible source: pulmonary Blood cultures ordered: yes Antibiotic ordered: Yes Assessment & Plan Assessment Current Active Medications: Generic Name Dose Route Start Last Admin Trade Name Freq PRN Reason Stop Dose Admin Acetaminophen 650 mg 07/08/24 01:33 07/09/24 12:16 Acetaminophen 325 Mg Tablet PO 08/07/24 01:32 650 mg Q6H PRN Administration Fever >101.5 Hydrocodone Bitart/Acetaminophen 1 tab 07/08/24 01:33 Hydrocodone/Apap 5/325 Tablet PO 07/13/24 01:32 Q4HR PRN PAIN SCALE 4-6 (Moderate Hydrocodone Bitart/Acetaminophen 1 tab 07/08/24 01:33 Hydrocodone/Apap 10/325 Tab PO 07/13/24 01:32 Q4H PRN Pain Scale 7-10 (Moderate Famotidine 20 mg 07/08/24 09:00 07/09/24 08:01 Famotidine 20 Mg Tablet PO 08/07/24 08:59 20 mg BID ARI Administration Filgrastim 480 mcg 07/09/24 09:30 07/09/24 09:58 Filgrastim Inj (Zarxio) 480 Mcg/0.8 Ml Syringe SC 07/13/24 09:29 480 mcg QDAY ARI Administration Norepinephrine/Dextrose 8 mg in 250 mls @ 6.804 mls/hr 07/08/24 01:39 07/09/24 10:00 Levophed In D5w 8mg/250ml IV 08/07/24 01:38 0 mcg/kg/min .Q24H PRN 0 mls/hr PER PROTOCOL Titration Protocol 0.05 MCG/KG/MIN Cefepime HCl 2 gm/ Sodium 50 mls @ 100 mls/hr 07/08/24 01:40 07/09/24 08:00 Chloride IV 07/15/24 01:39 100 mls/hr Q12HR ARI Administration Vancomycin HCl/Dextrose 250 mls @ 120 mls/hr 07/08/24 22:00 07/08/24 21:34 Vancomycin/D5w 1,250 Mg Ivpb IV 07/15/24 21:59 120 mls/hr DAILY@2200 ARI Administration Protocol Micafungin Sodium 100 mg/ 100 mls @ 100 mls/hr 07/08/24 11:00 07/09/24 09:38 Sodium Chloride IV 08/07/24 10:59 100 mls/hr QDAY ARI Administration Azithromycin 500 mg/ Sodium 250 mls @ 250 mls/hr 07/08/24 11:15 07/09/24 09:37 Chloride IV 07/15/24 01:39 250 mls/hr QDAY ARI Administration Ondansetron HCl 4 mg 07/08/24 01:33 Ondansetron Inj 2 Mg/Ml Inj 2 Ml IV 08/07/24 01:32 Q6H PRN NAUSEA OR VOMITING Protocol Pharmacy Consult 1 each 07/08/24 09:00 Vancomycin Pharmacy To Dose 1 Each Each IV 08/07/24 08:59 QDAY PRN CONSULT Sennosides 1 tab 07/08/24 02:48 Senna Tablet PO 08/07/24 08:59 QDAY PRN CONSTIPATION Protocol Plan Patient is a 64 year old male with past medical history of small cell lung cancer s/p radiation on chemotherapy who was admitted directly into ICU for Septic Shock secondary to pneumonia after being placed on pressors and subsequently downgraded on 07/09/2024. #Neutropenic fever #Pancytopenia Given past medical history of small cell carcinoma and chemotherapy/radiation making patient immunocompromised. Patient required 2 units of RBCs on admission. Diagnostics: WBC (07/09/2024): <0.4, Hgb 7.7, Hct 22.0, Plt Count 20 Plan -Isolation Precautions -Filgrastim 480 mcg SC Qday -Will continue with filgrastim until ANC above 2000 -Azithromycin 500 mg IV Qday 07/08/2024-- -Cefepime 2 mg IV Q12HR 07/08/2024 -Micafungin 100 mg IV Qday 07/08/2024 -Vancomycin 07/08/2024-- -Transfuse if hgb <7 #Pneumonia Given patient's immunocompromised state, opportunistic bacteria can not be ruled out but likely gram positive such as strep pneumonia or H. hemophilus. CTA: Extensive left lung pneumonia prominent at left lung base Mild Pneumonia right base MRSA: negative UA culture pending Blood Culture Negative Plan -Consider sputum culture --Azithromycin 500 mg IV Qday 07/08/2024-- -Cefepime 2 mg IV Q12HR 07/08/2024 -Micafungin 100 mg IV Qday 07/08/2024 -Vancomycin 07/08/2024-- -Legionella Pending #Small Cell Carcinoma S/p small cell carcinoma metastatis stage IV w/ radiaotion and chemotherapy (june 2024) Plan -no acute intervention in hospital -Dr. Rutledge following as outpatinet #Hyperbilirubinemia Likey of the setting of hepatic metastatis vs increased bone marrow destruction secondary to on going chemo U/S showed negative cholelithiasis Plan No acute intervention #Acute Hypoxic Respiratory Failure, Resolved Septic Shock, secondary to pneumonia, Resolved. Health Maintenance: Disp: Pt is currently admitted to floors for further management of neutropenic fever, awaiting clinical improvement FEN: regular diet DVT: compression device, plt count of 20 Code: Full Code - The patient's plan was discussed with attending Dr. Lennie Singh MD PGY1 Internal Medicine Attending Provider Attestation/Addendum I have discussed and was present for the essential components of the history, physical examination, diagnosis, and treatment plan with the resident. I agree with the patient's care as documented by the resident and amended herein by me. Ilia Hogue DO. Although this document has been carefully reviewed, there may still be some phonetic and other typographical errors. These errors are purely grammatical due to imperfections in the software program and should not be construed in any way to compromise the substance of the patient's medical care during this visit.
[2024-07-09 20:07] LABS: Hemoglobin 7.7 g/dL (13.5-16.0)
[2024-07-09] MEDS: VANCOMYCIN/D5W 1,250 MG IVPB 250 ML 120 MG IV (21:26)
[2024-07-10] VITALS (11 sets, daily range): BP systolic 105–134; BP diastolic 69–85; PULSE 90–118; RESP 14–22; TEMP 36.2–37.9; O2SAT 92–97; BMI 28.4; BMI 28.3
[2024-07-10] MEDS: ACETAMINOPHEN 325 MG TABLET 650 MG PO ×3 (03:26→22:34)
[2024-07-10 05:06] LABS: Basophils % (Auto) 0 % (0-2.5); Eosinophils % (Auto) 0 % (0-10); Hematocrit 21.7 % (41.0-53.0); Immature Granulocytes % (Auto) 0 % (0-0); Lymphocytes # (Auto) 0.2 Thou/mm3 (1.0-4.8); Lymphocytes % (Auto) 43 % (10-50); Mean Corpuscular Hemoglobin 31.5 pg (25.0-35.0); Mean Corpuscular Volume 90 fL (80-100); Monocytes # (Auto) 0.1 Thou/mm3 (0.0-0.8); Monocytes % (Auto) 15 % (0-12); Neutrophils # (Auto) 0.2 Thou/mm3 (1.8-7.7); Neutrophils % (Auto) 43 % (37-80); Nucleated Red Blood Cell % 0 /100 WBC (0); RDW Standard Deviation 49.3 fL (35.1-43.9); Red Blood Count 2.41 Miln/mm3 (4.50-5.90)
[2024-07-10 05:09] LABS: Hemoglobin 7.6 g/dL (13.5-16.0); Platelet Count 39 Thou/mm3 (140-440); White Blood Count 0.4 Thou/mm3 (3.8-10.6)
[2024-07-10 05:12] LABS: Slide Review Platelets confirmed
[2024-07-10 05:27] LABS: Alanine Aminotransferase 24 U/L (10-49); Albumin, Serum 3.1 gm/dL (3.4-4.8); Albumin/Globulin Ratio 1.3 (1.2-2.2); Alkaline Phosphatase 139 U/L (46-116); Anion Gap 10 (7-16); Aspartate Amino Transferase 14 U/L (0-34); BUN/Creatinine Ratio 16 Ratio (12-20); Bilirubin,Total 1.1 mg/dL (0.3-1.2); Blood Urea Nitrogen 16 mg/dL (9-23); Calcium 7.8 mg/dL (8.3-10.6); Calcium (Corrected) 8.5 mg/dL (8.5-10.1); Carbon Dioxide 20.3 mMol/L (20.0-31.0); Chloride 105 mMol/L (98-107); Globulin 2.3 gm/dL (2.3-3.5); Glucose 85 mg/dL (74-106); Magnesium 1.7 mg/dL (1.6-2.6); Osmolality,Calculated 270 (275-295); Phosphorous 1.3 mg/dL (2.4-5.1); Sodium 135 mMol/L (136-145); Total Protein 5.4 gm/dL (5.7-8.2); eGFR > 60 See Note
[2024-07-10] MEDS: FAMOTIDINE 20 MG TABLET PO ×2 (08:13→20:07)
[2024-07-10] MEDS: CEFEPIME INJ 2 GM in SODIUM CHLORIDE 0.9% (Popper) 50 ML IV ×2 (08:13→20:07)
[2024-07-10] MEDS: POTASSIUM CHL 10 mEq IVPB 10 MEQ/100 ML BAG 100 MEQ IV ×4 (08:35→12:10)
[2024-07-10] MEDS: POTASSIUM CHLORIDE 20 mEq TABCR 40 MEQ PO (08:36)
[2024-07-10] MEDS: Magnesium Sulfate 2 GM Ivpb 2 GM/50 ML BAG IV (08:53)
[2024-07-10] MEDS: NAPH,KPH MBDB 1 PACKET (1.5 GM) PO (08:53)
[2024-07-10] MEDS: AZITHROMYCIN INJ 500 MG in SODIUM CHLORIDE 0.9% 250 ML 250 ML 250 MG IV (09:05)
[2024-07-10] MEDS: MICAFUNGIN SODIUM INJ 100 MG in SODIUM CHLORIDE 0.9% 100 ML IV (09:05)
[2024-07-10] MEDS: FILGRASTIM INJ (ZARXIO) 480 MCG/0.8 ML SYRINGE SC (10:17)
--- NOTE | 2024-07-10 12:15 | ESPR_ITS ---
Documentation for date of: 07/10/24 Subjective Subjective Interval history: No overnight events. No fevers reported overnight after move from ICU onto floors. Continue to monitor for pyrexia. Anti-fungal, Azithromycin D/C, and Vancomycin D/c. Patinet denied shortness of breath. Patient denied chills or fevers. Patient denied chest pain. Exam Vital Signs Temp Pulse Resp BP Pulse Ox O2 Del Method O2 Flow Rate 97.4 F 90 14 113/70 96 Room Air 1 07/10/24 07:48 07/10/24 07:48 07/10/24 07:48 07/10/24 07:48 07/10/24 07:48 07/10/24 07:48 07/08/24 15:45 FiO2 65 07/08/24 02:16 Narrative Exam General Appearance: Alert & Oriented X3, thin male who is lying in bed in no acute distress HEENT: Skull symmetrical and atraumatic. Conjunctivae pin and moist. Pupils equal, round, reactive to light and accommodation (PERRL). External ear without lesion or discharge. Straight, nares patient, mucosa pink, no discharge. Cardio: Normal Rate and Rhythm with S1 and S2 heart sounds. No murmurs or extra heart sounds auscultated. No bruits on carotid auscultation. No peripheral edema or cyanosis. Lungs: Symmetric with good expansion. Chest and back non-tender. Breath sounds vesicular no rhonhci appreciated. Abdomen: Non-tender, Non-distended, Normal Reactive Bowel Sounds Neuro: Alert, cooperative, oriented to person, place, and time. Speech clear. CN grossly intact. Upper motor strength 5/5 and Lower motor strength 5/5. Sensation intact. Objective Labs 07/10/24 04:11 07/10/24 04:11 Labs: Laboratory Results - last 24 hr 07/07/24 07/09/24 07/10/24 19:36 19:40 04:11 WBC 0.4 L* RBC 2.41 L Hgb 7.7 L 7.6 L Hct 22.0 L 21.7 L* MCV 90 MCH 31.5 MCHC 35.0 RDW Std Deviation 49.3 H Plt Count 39 L D Neut % (Auto) 43 Lymph % (Auto) 43 [place] % (Auto) 15 H Eos % (Auto) 0 Baso % (Auto) 0 Neut # (Auto) 0.2 L Lymph # (Auto) 0.2 L [place] # (Auto) 0.1 Eos # (Auto) 0.0 Baso # (Auto) 0.0 Immature Gran # (Auto) 0.00 Absolute Nucleated RBC 0.00 Immature Gran % 0 Nucleated RBC % 0 Sodium 135 L Potassium 3.0 L Chloride 105 Carbon Dioxide 20.3 Anion Gap 10 BUN 16 Creatinine 1.0 Estim Creat Clear Calc 73.0 eGFR > 60 BUN/Creatinine Ratio 16 Glucose 85 Calculated Osmolality 270 L Calcium 7.8 L Corrected Calcium 8.5 Phosphorus 1.3 L Magnesium 1.7 Total Bilirubin 1.1 AST 14 ALT 24 Alkaline Phosphatase 139 H D Total Protein 5.4 L Albumin 3.1 L Globulin 2.3 Albumin/Globulin Ratio 1.3 Misc Test Result Platelets confirmed Blood Type A Positive Antibody Screen NEGATIVE Crossmatch See Detail Blood Bank Wristband ID Yes Blood Bank Comment PLATP Ready Quality Measures Quality Measures none Assessment & Plan Assessment Current Active Medications: Generic Name Dose Route Start Last Admin Trade Name Freq PRN Reason Stop Dose Admin Acetaminophen 650 mg 07/09/24 18:04 07/10/24 03:26 Acetaminophen 325 Mg Tablet PO 08/07/24 01:32 650 mg Q6H PRN Administration Pain 1-3 or Fever >100.3 Hydrocodone Bitart/Acetaminophen 1 tab 07/08/24 01:33 Hydrocodone/Apap 5/325 Tablet PO 07/13/24 01:32 Q4HR PRN PAIN SCALE 4-6 (Moderate Hydrocodone Bitart/Acetaminophen 1 tab 07/08/24 01:33 Hydrocodone/Apap 10/325 Tab PO 07/13/24 01:32 Q4H PRN Pain Scale 7-10 (Moderate Benzonatate 100 mg 07/09/24 17:59 Benzonatate 100 Mg Capsule PO 08/08/24 17:58 Q8HR PRN COUGH Protocol Famotidine 20 mg 07/08/24 09:00 07/10/24 08:13 Famotidine 20 Mg Tablet PO 08/07/24 08:59 20 mg BID ARI Administration Filgrastim 480 mcg 07/09/24 09:30 07/10/24 10:17 Filgrastim Inj (Zarxio) 480 Mcg/0.8 Ml Syringe SC 07/13/24 09:29 480 mcg QDAY ARI Administration Cefepime HCl 2 gm/ Sodium 50 mls @ 100 mls/hr 07/08/24 01:40 07/10/24 08:13 Chloride IV 07/15/24 01:39 100 mls/hr Q12HR ARI Administration Ondansetron HCl 4 mg 07/08/24 01:33 Ondansetron Inj 2 Mg/Ml Inj 2 Ml IV 08/07/24 01:32 Q6H PRN NAUSEA OR VOMITING Protocol Pharmacy Consult 1 each 07/08/24 09:00 Vancomycin Pharmacy To Dose 1 Each Each IV 08/07/24 08:59 QDAY PRN CONSULT Sennosides 1 tab 07/08/24 02:48 Senna Tablet PO 08/07/24 08:59 QDAY PRN CONSTIPATION Protocol Plan Patient is a 64 year old male with past medical history of small cell lung cancer s/p radiation on chemotherapy who was admitted directly into ICU for Septic Shock secondary to pneumonia after being placed on pressors and subsequently downgraded on 07/09/2024. #Neutropenic fever #Pancytopenia Given past medical history of small cell carcinoma and chemotherapy/radiation making patient immunocompromised. Patient required 2 units of RBCs on admission. Diagnostics: WBC (07/09/2024): <0.4, Hgb 7.7, Hct 22.0, Plt Count 20 Plan -Isolation Precautions -Filgrastim 480 mcg SC Qday -Will continue with filgrastim until ANC above 2000 -Azithromycin 500 mg IV Qday 07/08/2024-- -Cefepime 2 mg IV Q12HR 07/08/2024 -Micafungin 100 mg IV Qday 07/08/2024 -Vancomycin 07/08/2024-- -Transfuse if hgb <7 #Pneumonia Given patient's immunocompromised state, opportunistic bacteria can not be ruled out but likely gram positive such as strep pneumonia or H. hemophilus. CTA: Extensive left lung pneumonia prominent at left lung base Mild Pneumonia right base MRSA: negative UA culture 48 hours negative Blood Culture Negative Plan -Consider sputum culture, denied productive cough, unable to obtain sample -Cefepime 2 mg IV Q12HR 07/08/2024 -Micafungin 100 mg IV Qday 07/08/2024-07/10/2024 -Vancomycin 07/08/2024--07/10/2024 --Azithromycin 500 mg IV Qday 07/08/2024--07/10/2024 -Legionella Pending #Small Cell Carcinoma S/p small cell carcinoma metastatis stage IV w/ radiaotion and chemotherapy (june 2024) Plan -no acute intervention in hospital -Dr. Rutledge following as outpatinet #Hyperbilirubinemia Likey of the setting of hepatic metastatis vs increased bone marrow destruction secondary to on going chemo U/S showed negative cholelithiasis Plan No acute intervention #Acute Hypoxic Respiratory Failure, Resolved Septic Shock, secondary to pneumonia, Resolved. Health Maintenance: Disp: Pt is currently admitted to floors for further management of neutropenic fever, awaiting clinical improvement FEN: regular diet DVT: compression device, plt count of 20 Code: Full Code - The patient's plan was discussed with attending Dr. Lennie Singh MD PGY1 Internal Medicine Attending Provider Attestation/Addendum I have discussed and was present for the essential components of the history, physical examination, diagnosis, and treatment plan with the resident. I agree with the patient's care as documented by the resident and amended herein by me. Ilia Hogue, . Patient seen and evaluated this AM. No acute events overnight, vital signs stable, patient afebrile overnight. Patient recently downgraded yesterday from the ICU for septic shock in setting of left lung pneumonia and neutropenic fever. Patient does have a history of small cell lung cancer status post radiation and chemotherapy who follows with Dr. Hicks here at the [facility] cancer center. Today the patient's labs are demonstrating pancytopenia however with improvement, WBC 0.4 today, hemoglobin stable at 7.6, platelets up trended to 39, absolute neutrophil count 0.2 which is a slight uptrend, lymphocyte stable at 0.2. BMP significant for a sodium 135, potassium 3.0. Legionella is pending, cocci IgM and IgG was negative on 07/08. The patient was downgraded he was started on cefepime azithromycin, vancomycin and micafungin. Considering he was only admitted on 07/08 and, has remained afebrile, will de-escalate to only cefepime at this time. MRSA nares was negative, the patient was on vancomycin for 2 days hence we can stop today. Will DC micafungin for now, if patient starts spiking fever again despite broad-spectrum antibiotics, we can restart again. Will replete electrolytes as needed and continue fill gastrum per oncology recommendations until his neutrophil count is approximately 2. I was able to speak with the patient's son over the phone, the plan was discussed and all questions were answered Although this document has been carefully reviewed, there may still be some phonetic and other typographical errors. These errors are purely grammatical due to imperfections in the software program and should not be construed in any way to compromise the substance of the patient's medical care during this visit.
[2024-07-10 22:26] LABS: Vancomycin,Trough 6.8 mcg/mL (5.0-10.0)
[2024-07-11] VITALS (13 sets, daily range): BP systolic 100–137; BP diastolic 64–82; PULSE 80–110; RESP 16–95; TEMP 36.2–36.7; O2SAT 94–98; BMI 28.2
[2024-07-11] MEDS: SENNA TABLET 1 TAB PO (05:03)
[2024-07-11 05:24] LABS: Basophils % (Auto) 1 % (0-2.5); Eosinophils % (Auto) 0 % (0-10); Hemoglobin 8.9 g/dL (13.5-16.0); Immature Granulocytes % (Auto) 12 % (0-0); Immature Granulocytes Auto 0.11 Thou/mm3 (0.00-0.00); Lymphocytes # (Auto) 0.2 Thou/mm3 (1.0-4.8); Lymphocytes % (Auto) 26 % (10-50); Mean Corpuscular HGB Conc 35.6 g/dl (31.0-37.0); Mean Corpuscular Hemoglobin 31.9 pg (25.0-35.0); Mean Corpuscular Volume 90 fL (80-100); Monocytes # (Auto) 0.3 Thou/mm3 (0.0-0.8); Monocytes % (Auto) 32 % (0-12); Neutrophils # (Auto) 0.3 Thou/mm3 (1.8-7.7); Neutrophils % (Auto) 29 % (37-80); Nucleated Red Blood Cell % 0 /100 WBC (0); RDW Standard Deviation 50.1 fL (35.1-43.9); Red Blood Count 2.79 Miln/mm3 (4.50-5.90)
[2024-07-11 05:28] LABS: Platelet Count 41 Thou/mm3 (140-440)
[2024-07-11 05:29] LABS: Slide Review Platelets confirmed; White Blood Count 0.9 Thou/mm3 (3.8-10.6)
[2024-07-11 06:09] LABS: Alanine Aminotransferase 23 U/L (10-49); Albumin, Serum 3.3 gm/dL (3.4-4.8); Albumin/Globulin Ratio 1.3 (1.2-2.2); Alkaline Phosphatase 177 U/L (46-116); Anion Gap 10 (7-16); Aspartate Amino Transferase 15 U/L (0-34); BUN/Creatinine Ratio 16 Ratio (12-20); Bilirubin,Total 0.9 mg/dL (0.3-1.2); Blood Urea Nitrogen 16 mg/dL (9-23); Calcium 8.4 mg/dL (8.3-10.6); Chloride 105 mMol/L (98-107); Estimated Creatinine Clearance 74.2 mL/min (>60); Globulin 2.6 gm/dL (2.3-3.5); Glucose 86 mg/dL (74-106); Magnesium 1.8 mg/dL (1.6-2.6); Osmolality,Calculated 275 (275-295); Phosphorous 1.6 mg/dL (2.4-5.1); Potassium 3.8 mMol/L (3.4-5.1); Sodium 138 mMol/L (136-145); Total Protein 5.9 gm/dL (5.7-8.2); eGFR > 60 See Note
[2024-07-11] MEDS: CEFEPIME INJ 2 GM in SODIUM CHLORIDE 0.9% (Popper) 50 ML IV ×2 (08:36→20:01)
[2024-07-11] MEDS: FILGRASTIM INJ (ZARXIO) 480 MCG/0.8 ML SYRINGE SC (08:36)
[2024-07-11] MEDS: FAMOTIDINE 20 MG TABLET PO ×2 (08:36→20:01)
[2024-07-11] MEDS: NAPH,KPH MBDB 1 PACKET (1.5 GM) PO (09:44)
[2024-07-11] MEDS: POT PHOS 15 mMol in NS 250 ML 15 MMOL/250 ML BAG 62.5 MMOL IV (09:44)
[2024-07-11] MEDS: IBUPROFEN TAB 600 MG TABLET PO (11:10)
[2024-07-11] MEDS: BENZONATATE 100 MG CAPSULE 200 MG PO (11:11)
[2024-07-11] MEDS: RINGERS LACTATED 1000 ML 1,000 ML 200 ML IV (11:11)
--- NOTE | 2024-07-11 17:40 | ESPR_ITS ---
Documentation for date of: 07/11/24 Subjective Subjective Interval history: The patient is by bedside, complaining of cough and headache, CBC shows persistent leukopenia and neutropenia, WBC count 0.9, ANC 0.3. Continue to filgrastim and broad-spectrum IV antibiotic. Blood cultures negative to date, continue close monitoring for fever or unstable vitals, may reintroduce antifungal and MRSA coverage at that point, currently patient is getting adequate coverage for PNA with cefepime to cover for Pseudomonas . Exam Vital Signs Temp Pulse Resp BP Pulse Ox O2 Del Method O2 Flow Rate 97.7 F 100 20 112/74 95 Room Air 1 07/11/24 16:00 07/11/24 16:00 07/11/24 16:00 07/11/24 16:07/11/24 16:07/11/24 16:07/08/24 15:45 FiO2 65 07/08/24 02:16 Narrative Exam General Appearance: Alert & Oriented X3, thin male who is lying in bed in no acute distress HEENT: Skull symmetrical and atraumatic. Conjunctivae pin and moist. Pupils equal, round, reactive to light and accommodation (PERRL). External ear without lesion or discharge. Straight, nares patient, mucosa pink, no discharge. Cardio: Normal Rate and Rhythm with S1 and S2 heart sounds. No murmurs or extra heart sounds auscultated. No bruits on carotid auscultation. No peripheral edema or cyanosis. Lungs: Symmetric with good expansion. Chest and back non-tender. Breath sounds vesicular no rhonhci appreciated. Abdomen: Non-tender, Non-distended, Normal Reactive Bowel Sounds Neuro: Alert, cooperative, oriented to person, place, and time. Speech clear. CN grossly intact. Upper motor strength 5/5 and Lower motor strength 5/5. Sensation intact. Objective Labs 07/12/24 04:02 07/12/24 04:02 Labs: Laboratory Results - last 24 hr 07/07/24 07/10/24 07/11/24 19:36 21:00 04:15 WBC 0.9 L* D RBC 2.79 L Hgb 8.9 L Hct 25.0 L MCV 90 MCH 31.9 MCHC 35.6 RDW Std Deviation 50.1 H Plt Count 41 L Neut % (Auto) 29 L Lymph % (Auto) 26 [place] % (Auto) 32 H Eos % (Auto) 0 Baso % (Auto) 1 Neut # (Auto) 0.3 L Lymph # (Auto) 0.2 L [place] # (Auto) 0.3 Eos # (Auto) 0.0 Baso # (Auto) 0.0 Immature Gran # (Auto) 0.11 H Absolute Nucleated RBC 0.00 Immature Gran % 12 H Nucleated RBC % 0 Sodium 138 Potassium 3.8 D Chloride 105 Carbon Dioxide 23.0 Anion Gap 10 BUN 16 Creatinine 1.0 Estim Creat Clear Calc 74.2 eGFR > 60 BUN/Creatinine Ratio 16 Glucose 86 Calculated Osmolality 275 Calcium 8.4 Corrected Calcium 9.0 Phosphorus 1.6 L Magnesium 1.8 Total Bilirubin 0.9 AST 15 ALT 23 Alkaline Phosphatase 177 H D Total Protein 5.9 Albumin 3.3 L Globulin 2.6 Albumin/Globulin Ratio 1.3 Vancomycin Trough 6.8 Misc Test Result Platelets confirmed Crossmatch See Detail Quality Measures Quality Measures none Assessment & Plan Assessment Current Active Medications: Generic Name Dose Route Start Last Admin Trade Name Freq PRN Reason Stop Dose Admin Acetaminophen 650 mg 07/09/24 18:04 07/10/24 22:34 Acetaminophen 325 Mg Tablet PO 08/07/24 01:32 650 mg Q6H PRN Administration Pain 1-3 or Fever >100.3 Hydrocodone Bitart/Acetaminophen 1 tab 07/08/24 01:33 Hydrocodone/Apap 5/325 Tablet PO 07/13/24 01:32 Q4HR PRN PAIN SCALE 4-6 (Moderate Hydrocodone Bitart/Acetaminophen 1 tab 07/08/24 01:33 Hydrocodone/Apap 10/325 Tab PO 07/13/24 01:32 Q4H PRN Pain Scale 7-10 (Moderate Benzonatate 200 mg 07/11/24 10:57 07/11/24 11:11 Benzonatate 100 Mg Capsule PO 08/08/24 17:58 200 mg Q8HR PRN Administration COUGH Protocol Famotidine 20 mg 07/08/24 09:00 07/11/24 08:36 Famotidine 20 Mg Tablet PO 08/07/24 08:59 20 mg BID ARI Administration Filgrastim 480 mcg 07/09/24 09:30 07/11/24 08:36 Filgrastim Inj (Zarxio) 480 Mcg/0.8 Ml Syringe SC 07/13/24 09:29 480 mcg QDAY ARI Administration Cefepime HCl 2 gm/ Sodium 50 mls @ 100 mls/hr 07/08/24 01:40 07/11/24 09:06 Chloride IV 07/15/24 01:39 Infused Q12HR ARI Infusion Ibuprofen 600 mg 07/11/24 10:57 07/11/24 11:10 Ibuprofen Tab 600 Mg Tablet PO 08/10/24 10:56 600 mg Q6HR PRN Administration PAIN 1-6 (mild-mod Ondansetron HCl 4 mg 07/08/24 01:33 Ondansetron Inj 2 Mg/Ml Inj 2 Ml IV 08/07/24 01:32 Q6H PRN NAUSEA OR VOMITING Protocol Sennosides 1 tab 07/08/24 02:48 07/11/24 05:03 Senna Tablet PO 08/07/24 08:59 1 tab QDAY PRN Administration CONSTIPATION Protocol Plan Patient is a 64 year old male with past medical history of small cell lung cancer s/p radiation on chemotherapy who was admitted directly into ICU for Septic Shock secondary to pneumonia after being placed on pressors and subsequently downgraded on 07/09/2024. #Neutropenic fever #Pancytopenia Given past medical history of small cell carcinoma and chemotherapy/radiation making patient immunocompromised. Patient required 2 units of RBCs on admission. Diagnostics: WBC (07/09/2024): <0.4, Hgb 7.7, Hct 22.0, Plt Count 20 Plan -Isolation Precautions -Filgrastim 480 mcg SC Qday -Will continue with filgrastim until ANC above 2000 -Azithromycin 500 mg IV Qday 07/08/2024-- -Cefepime 2 mg IV Q12HR 07/08/2024 -Micafungin 100 mg IV Qday 07/08/2024 -Vancomycin 07/08/2024-- -Transfuse if hgb <7 #Pneumonia Given patient's immunocompromised state, opportunistic bacteria can not be ruled out but likely gram positive such as strep pneumonia or H. hemophilus. CTA: Extensive left lung pneumonia prominent at left lung base Mild Pneumonia right base MRSA: negative UA culture 48 hours negative Blood Culture Negative Plan -Consider sputum culture, denied productive cough, unable to obtain sample -Cefepime 2 mg IV Q12HR 07/08/2024 -Micafungin 100 mg IV Qday 07/08/2024-07/10/2024 -Vancomycin 07/08/2024--07/10/2024 --Azithromycin 500 mg IV Qday 07/08/2024--07/10/2024 -Legionella Pending #Small Cell Carcinoma S/p small cell carcinoma metastatis stage IV w/ radiaotion and chemotherapy (june 2024) Plan -no acute intervention in hospital -Dr. Rutledge following as outpatinet #Hyperbilirubinemia Likey of the setting of hepatic metastatis vs increased bone marrow destruction secondary to on going chemo U/S showed negative cholelithiasis Plan No acute intervention #Acute Hypoxic Respiratory Failure, Resolved Septic Shock, secondary to pneumonia, Resolved. Health Maintenance: Disp: Pt is currently admitted to floors for further management of neutropenic fever, awaiting clinical improvement FEN: regular diet DVT: compression device, plt count of 20 Code: Full Code - The patient's plan was discussed with attending Dr. Lennie Richardson pgy2 Attending Provider Attestation/Addendum I have discussed and was present for the essential components of the history, physical examination, diagnosis, and treatment plan with the resident. I agree with the patient's care as documented by the resident and amended herein by me. Ilia Hogue DO. Although this document has been carefully reviewed, there may still be some phonetic and other typographical errors. These errors are purely grammatical due to imperfections in the software program and should not be construed in any way to compromise the substance of the patient's medical care during this visit.
[2024-07-11] MEDS: ACETAMINOPHEN 325 MG TABLET 650 MG PO (23:09)
--- NOTE | 2024-07-11 23:40 | PC.RT ---
PT UNABLE TO PRODUCE SPUTUM FOR SAMPLE. DR BOX AWARE.
[2024-07-12] VITALS (9 sets, daily range): BP systolic 102–134; BP diastolic 65–82; PULSE 87–106; RESP 14–96; TEMP 36.2–37.1; O2SAT 92–96; BMI 28.2
[2024-07-12 05:08] LABS: Basophils % (Auto) 2 % (0-2.5); Eosinophils % (Auto) 0 % (0-10); Hematocrit 24.9 % (41.0-53.0); Immature Granulocytes % (Auto) 8 % (0-0); Immature Granulocytes Auto 0.22 Thou/mm3 (0.00-0.00); Lymphocytes # (Auto) 0.4 Thou/mm3 (1.0-4.8); Lymphocytes % (Auto) 14 % (10-50); Mean Corpuscular HGB Conc 34.9 g/dl (31.0-37.0); Mean Corpuscular Hemoglobin 31.8 pg (25.0-35.0); Mean Corpuscular Volume 91 fL (80-100); Monocytes # (Auto) 0.5 Thou/mm3 (0.0-0.8); Monocytes % (Auto) 19 % (0-12); Neutrophils # (Auto) 1.5 Thou/mm3 (1.8-7.7); Neutrophils % (Auto) 57 % (37-80); Nucleated Red Blood Cell % 0 /100 WBC (0); Red Blood Count 2.74 Miln/mm3 (4.50-5.90)
[2024-07-12 05:21] LABS: Hemoglobin 8.7 g/dL (13.5-16.0); Platelet Count 39 Thou/mm3 (140-440); White Blood Count 2.6 Thou/mm3 (3.8-10.6)
[2024-07-12 05:41] LABS: Alanine Aminotransferase 21 U/L (10-49); Albumin, Serum 3.2 gm/dL (3.4-4.8); Albumin/Globulin Ratio 1.3 (1.2-2.2); Alkaline Phosphatase 177 U/L (46-116); Anion Gap 10 (7-16); Aspartate Amino Transferase 14 U/L (0-34); BUN/Creatinine Ratio 19 Ratio (12-20); Bilirubin,Total 0.7 mg/dL (0.3-1.2); Blood Urea Nitrogen 17 mg/dL (9-23); Calcium 8.5 mg/dL (8.3-10.6); Calcium (Corrected) 9.1 mg/dL (8.5-10.1); Carbon Dioxide 21.9 mMol/L (20.0-31.0); Chloride 106 mMol/L (98-107); Creatinine (Component) 0.9 mg/dL (0.6-1.3); Estimated Creatinine Clearance 82.2 mL/min (>60); Globulin 2.4 gm/dL (2.3-3.5); Glucose 94 mg/dL (74-106); Magnesium 1.7 mg/dL (1.6-2.6); Osmolality,Calculated 277 (275-295); Phosphorous 2.8 mg/dL (2.4-5.1); Potassium 3.6 mMol/L (3.4-5.1); Sodium 138 mMol/L (136-145); Total Protein 5.6 gm/dL (5.7-8.2); eGFR > 60 See Note
[2024-07-12 05:45] LABS: Slide Review Platelets confirmed
[2024-07-12 07:16] LABS: Legionella Ag, EIA, Urine* NOT DETECTED
[2024-07-12] MEDS: CEFEPIME INJ 2 GM in SODIUM CHLORIDE 0.9% (Popper) 50 ML IV ×2 (08:55→22:21)
[2024-07-12] MEDS: POTASSIUM CHLORIDE 10% 20 MEQ/15 ML UDC 40 MEQ PO (08:55)
[2024-07-12] MEDS: FAMOTIDINE 20 MG TABLET PO ×2 (08:58→22:21)
[2024-07-12] MEDS: IBUPROFEN TAB 600 MG TABLET PO (08:59)
[2024-07-12] MEDS: Magnesium Sulfate 2 GM Ivpb 2 GM/50 ML BAG IV (09:08)
[2024-07-12] MEDS: FILGRASTIM INJ (ZARXIO) 480 MCG/0.8 ML SYRINGE SC (09:11)
--- NOTE | 2024-07-12 09:29 | PC.SS ---
Addendum entered by Mouna Jacobsen 07/12/24 12:48: DC 24-48hrs Original Note: Rounding: Pt currently leukopenic and neutropenic, continue IV ABX.
--- NOTE | 2024-07-12 13:53 | ESPR_ITS ---
<Statement entered by Agueda Ellison MD - 07/12/24 16:22> No acute overnight events. Upon my evaluation patient was hemodynamically stable, still complaining of headache,Tylenol was given, CBC showed significant improvement of the numbers, WBC 3.6, hemoglobin 8.7, with hematocrit of 24.9, platelets 239, absolute neutrophil count significantly improved, 1.5, will continue filgrastim until absolute neutrophil count is above 2, will continue cefepime to cover for PNA, consider imaging if patient's continue to complain of persistent headache to r/o any possible mets. 1.continue cefepime 2. continue filgrastim until absolute neutrophil count is above [address] head if continue complaining of persistent headache. 4. plan- anticipate discharge in the next 24 hours. I personally saw and examined the patient and discussed the assessment and plan with the entire medicine team, including my attending Dr. Hogue, Agueda Ellison M.D. PGY-2 Disclaimer: Despite multiple revisions, due to the dictation software being used, the document bellow may not be free of grammatical errors including phonetic/typographic errors. However, this does not deter from our commitment to providing health care in the patient's best interest in mind. Documentation for date of: 07/12/24 Subjective Subjective Interval history: No overnight events reported. Afebrile overnight. No shortness of breath reported. No chest pain. Mild headache. Continue Filgrastin 480 mcg subq until ANC>2000. Exam Vital Signs Temp Pulse Resp BP Pulse Ox O2 Del Method O2 Flow Rate 97.8 F 103 H 18 102/70 96 Room Air 1 07/12/24 11:12 07/12/24 11:47 07/12/24 11:12 07/12/24 11:12 07/12/24 11:12 07/12/24 11:12 07/08/24 15:45 FiO2 65 07/08/24 02:16 Narrative Exam General Appearance: Alert & Oriented X3, thin male who is lying in bed in no acute distress HEENT: Skull symmetrical and atraumatic. Conjunctivae pin and moist. Pupils equal, round, reactive to light and accommodation (PERRL). External ear without lesion or discharge. Straight, nares patient, mucosa pink, no discharge. Cardio: Normal Rate and Rhythm with S1 and S2 heart sounds. No murmurs or extra heart sounds auscultated. No bruits on carotid auscultation. No peripheral edema or cyanosis. Lungs: Symmetric with good expansion. Chest and back non-tender. Breath sounds vesicular no rhonhci appreciated. Abdomen: Non-tender, Non-distended, Normal Reactive Bowel Sounds Neuro: Alert, cooperative, oriented to person, place, and time. Speech clear. CN grossly intact. Upper motor strength 5/5 and Lower motor strength 5/5. Sensation intact. Objective Labs 07/12/24 04:02 07/12/24 04:02 Labs: Laboratory Results - last 24 hr 07/08/24 07/12/24 06:30 04:02 WBC 2.6 L D RBC 2.74 L Hgb 8.7 L Hct 24.9 L MCV 91 MCH 31.8 MCHC 34.9 RDW Std Deviation 52.0 H Plt Count 39 L Neut % (Auto) 57 Lymph % (Auto) 14 Dougherty % (Auto) 19 H Eos % (Auto) 0 Baso % (Auto) 2 Neut # (Auto) 1.5 L Lymph # (Auto) 0.4 L Dougherty # (Auto) 0.5 Eos # (Auto) 0.0 Baso # (Auto) 0.0 Immature Gran # (Auto) 0.22 H Absolute Nucleated RBC 0.00 Immature Gran % 8 H Nucleated RBC % 0 Sodium 138 Potassium 3.6 Chloride 106 Carbon Dioxide 21.9 Anion Gap 10 BUN 17 Creatinine 0.9 Estim Creat Clear Calc 82.2 eGFR > 60 BUN/Creatinine Ratio 19 Glucose 94 Calculated Osmolality 277 Calcium 8.5 Corrected Calcium 9.1 Phosphorus 2.8 Magnesium 1.7 Total Bilirubin 0.7 AST 14 ALT 21 Alkaline Phosphatase 177 H Total Protein 5.6 L Albumin 3.2 L Globulin 2.4 Albumin/Globulin Ratio 1.3 Urine Legionella Ag NOT DETECTED Misc Test Result Platelets confirmed Quality Measures Quality Measures none Assessment & Plan Assessment Current Active Medications: Generic Name Dose Route Start Last Admin Trade Name Freq PRN Reason Stop Dose Admin Acetaminophen 650 mg 07/09/24 18:04 07/11/24 23:09 Acetaminophen 325 Mg Tablet PO 08/07/24 01:32 650 mg Q6H PRN Administration Pain 1-3 or Fever >100.3 Hydrocodone Bitart/Acetaminophen 1 tab 07/08/24 01:33 Hydrocodone/Apap 5/325 Tablet PO 07/13/24 01:32 Q4HR PRN PAIN SCALE 4-6 (Moderate Hydrocodone Bitart/Acetaminophen 1 tab 07/08/24 01:33 Hydrocodone/Apap 10/325 Tab PO 07/13/24 01:32 Q4H PRN Pain Scale 7-10 (Moderate Benzonatate 200 mg 07/11/24 10:57 07/11/24 11:11 Benzonatate 100 Mg Capsule PO 08/08/24 17:58 200 mg Q8HR PRN Administration COUGH Protocol Famotidine 20 mg 07/08/24 09:00 07/12/24 08:58 Famotidine 20 Mg Tablet PO 08/07/24 08:59 20 mg BID ARI Administration Filgrastim 480 mcg 07/09/24 09:30 07/12/24 09:11 Filgrastim Inj (Zarxio) 480 Mcg/0.8 Ml Syringe SC 07/13/24 09:29 480 mcg QDAY ARI Administration Cefepime HCl 2 gm/ Sodium 50 mls @ 100 mls/hr 07/08/24 01:40 07/12/24 08:55 Chloride IV 07/15/24 01:39 100 mls/hr Q12HR ARI Administration Ibuprofen 600 mg 07/11/24 10:57 07/12/24 08:59 Ibuprofen Tab 600 Mg Tablet PO 08/10/24 10:56 600 mg Q6HR PRN Administration PAIN 1-6 (mild-mod Ondansetron HCl 4 mg 07/08/24 01:33 Ondansetron Inj 2 Mg/Ml Inj 2 Ml IV 08/07/24 01:32 Q6H PRN NAUSEA OR VOMITING Protocol Sennosides 1 tab 07/08/24 02:48 07/11/24 05:03 Senna Tablet PO 08/07/24 08:59 1 tab QDAY PRN Administration CONSTIPATION Protocol Plan Patient is a 64 year old male with past medical history of small cell lung cancer s/p radiation on chemotherapy who was admitted directly into ICU for Septic Shock secondary to pneumonia after being placed on pressors and subsequently downgraded on 07/09/2024. #Neutropenic fever, improved #Pancytopenia Given past medical history of small cell carcinoma and chemotherapy/radiation making patient immunocompromised. Patient required 2 units of RBCs on admission. Diagnostics: WBC (07/09/2024): <0.4, Hgb 7.7, Hct 22.0, Plt Count 20 Plan -Isolation Precautions -Filgrastim 480 mcg SC Qday -Will continue with filgrastim until ANC above 2000 -Transfuse if hgb <7 #Pneumonia Given patient's immunocompromised state, opportunistic bacteria can not be ruled out but likely gram positive such as strep pneumonia or H. hemophilus. CTA: Extensive left lung pneumonia prominent at left lung base Mild Pneumonia right base MRSA: negative -Legionella Negative UA culture 48 hours negative Blood Culture Negative Plan -Consider sputum culture, denied productive cough, unable to obtain sample -Cefepime 2 mg IV Q12HR 07/08/2024 -Micafungin 100 mg IV Qday 07/08/2024-07/10/2024 -Vancomycin 07/08/2024--07/10/2024 --Azithromycin 500 mg IV Qday 07/08/2024--07/10/2024 #Small Cell Carcinoma S/p small cell carcinoma metastatis stage IV w/ radiaotion and chemotherapy (june 2024) Plan -no acute intervention in hospital -Dr. Rutledge following as outpatinet #Hyperbilirubinemia Likey of the setting of hepatic metastatis vs increased bone marrow destruction secondary to on going chemo U/S showed negative cholelithiasis Plan No acute intervention #Acute Hypoxic Respiratory Failure, Resolved Septic Shock, secondary to pneumonia, Resolved. Health Maintenance: Disp: Pt is currently admitted to floors for further management of neutropenic fever, awaiting clinical improvement FEN: regular diet DVT: compression device, plt count of 39 Code: Full Code Attending Provider Attestation/Addendum I have discussed and was present for the essential components of the history, physical examination, diagnosis, and treatment plan with the resident. I agree with the patient's care as documented by the resident and amended herein by me. Ilia Hogue DO. Patient seen and evaluated this AM. In short, 64-year-old male admitted for septic shock secondary to neutropenic fever and pneumonia in setting of metastatic lung cancer. No acute events overnight, vital signs stable, patient afebrile, patient still had complaints of mild headache, states it hurts when he coughs. I/O19 . Per oncology recommendations, recommended continuing filgrastim until neutrophil count reaches 2000, it is 1.5 today. All cell lines are improving, WBC 2.6, hemoglobin 8.7, platelets 39 today, lymphocytes 0.4 and neutrophils 1.5. BMP largely unremarkable. All cultures negative thus far. The patient did have an MRI brain May 25, 2024, no brain lesions noted. If the patient continues to have headache tomorrow, may consider CT head however the patient has no focal deficits I think it may be more of a tension headache from cough versus position. We also continue cefepime and Neupogen at this time, the patient is doing well on both. The patient's son was at bedside today, I explained the plan to him and her lab findings, likely discharge home tomorrow on 07/13 pending continued improvement. Of note, the patient is Dr. Ro's uncle, and with permission from the patient I did apprise Dr. Ro of his condition and plan Although this document has been carefully reviewed, there may still be some phonetic and other typographical errors. These errors are purely grammatical due to imperfections in the software program and should not be construed in any way to compromise the substance of the patient's medical care during this visit.
[2024-07-12] MEDS: KETOROLAC INJ 30 MG/ML VIAL 15 MG IVP (17:39)
[2024-07-12] MEDS: ACETAMINOPHEN 325 MG TABLET 650 MG PO (22:33)
[2024-07-13] VITALS (7 sets, daily range): BP systolic 117–142; BP diastolic 65–86; PULSE 10–105; RESP 17–22; TEMP 36.3–37.4; O2SAT 92–95; BMI 28.2
--- NOTE | 2024-07-13 | XR_ITS ---
Examination: MRI of brain without intravenous contrast. MRI brain with intravenous contrast. Date and time of exam:July 13, 2024 1343 hrs. Comparison May 25, 2024 Indications: Cancer diagnosis onset confusion beginning 07/08/2024 Technique: Multiple axial and sagittal images of the brain to been obtained. Siemens high-resolution 1.52 Trinity short bore scanner utilized. Sagittal sections, T1 weighted images, TR 500, TE 14, are performed. Axial sections proton-density and T2-weighted images have been obtained. Inversion recovery axial images, TR 9260, TE 111, TR 2500. Diffusion weighted images, axial sections, TR 4800, TE 128, B value 1000. Axial sections, ADC map, TR 4800, TE 128. Axial and coronal images were also obtained post 15 cc gadolinium administered intravenously. Findings:: Enlargement of the sella turcica is not present. The optic chiasm and infundibular stalk are not remarkable. There is no localized enlargement of the medulla or paul. Fourth ventricle and cerebellar tonsils appear normal in position. No subacute area of hemorrhage density is seen. Fourth ventricle is midline. Mass in the cerebellopontine angle region is not evident. 7th and 8th nerve complexes exhibit symmetry Globes are symmetrical Orbital musculature including medial lateral rectus muscles do not exhibit abnormality Increased white matter signal is mild Effacement of the cortical sulcal markings is not identified. Mass effect upon the ventricular system is not identified. Diffusion-weighted images demonstrate no focus of restricted diffusion Contrast images demonstrate no abnormal enhancement Impression: Negative for acute hemorrhage mass effect or midline shift No acute infarct Mild chronic microvascular white matter change No abnormal enhancing cerebellar or cerebral lesions
[2024-07-13 05:48] LABS: Basophils # (Auto) 0.1 Thou/mm3 (0.0-0.2); Basophils % (Auto) 1 % (0-2.5); Eosinophils % (Auto) 0 % (0-10); Hematocrit 23.5 % (41.0-53.0); Immature Granulocytes % (Auto) 11 % (0-0); Immature Granulocytes Auto 0.75 Thou/mm3 (0.00-0.00); Lymphocytes # (Auto) 0.4 Thou/mm3 (1.0-4.8); Lymphocytes % (Auto) 6 % (10-50); Mean Corpuscular HGB Conc 34.9 g/dl (31.0-37.0); Mean Corpuscular Hemoglobin 31.5 pg (25.0-35.0); Mean Corpuscular Volume 90 fL (80-100); Monocytes % (Auto) 15 % (0-12); Neutrophils # (Auto) 4.6 Thou/mm3 (1.8-7.7); Neutrophils % (Auto) 67 % (37-80); Nucleated Red Blood Cell # 0.04 Thou/mm3 (0.00-0.00); Nucleated Red Blood Cell % 1 /100 WBC (0); RDW Standard Deviation 53.6 fL (35.1-43.9); White Blood Count 6.9 Thou/mm3 (3.8-10.6)
[2024-07-13 06:00] LABS: Hemoglobin 8.2 g/dL (13.5-16.0); Platelet Count 40 Thou/mm3 (140-440)
[2024-07-13 06:17] LABS: Alanine Aminotransferase 17 U/L (10-49); Albumin, Serum 3.2 gm/dL (3.4-4.8); Albumin/Globulin Ratio 1.3 (1.2-2.2); Alkaline Phosphatase 185 U/L (46-116); Anion Gap 8 (7-16); Aspartate Amino Transferase 13 U/L (0-34); BUN/Creatinine Ratio 18 Ratio (12-20); Bilirubin,Total 0.6 mg/dL (0.3-1.2); Blood Urea Nitrogen 18 mg/dL (9-23); Calcium 8.6 mg/dL (8.3-10.6); Calcium (Corrected) 9.2 mg/dL (8.5-10.1); Carbon Dioxide 22.7 mMol/L (20.0-31.0); Chloride 106 mMol/L (98-107); Estimated Creatinine Clearance 74.1 mL/min (>60); Globulin 2.4 gm/dL (2.3-3.5); Glucose 88 mg/dL (74-106); Magnesium 1.8 mg/dL (1.6-2.6); Osmolality,Calculated 274 (275-295); Phosphorous 2.7 mg/dL (2.4-5.1); Potassium 3.8 mMol/L (3.4-5.1); Sodium 137 mMol/L (136-145); Total Protein 5.6 gm/dL (5.7-8.2); eGFR > 60 See Note
[2024-07-13 07:17] LABS: Slide Review Platelets confirmed
[2024-07-13] MEDS: FILGRASTIM INJ (ZARXIO) 480 MCG/0.8 ML SYRINGE SC (08:30)
[2024-07-13] MEDS: FAMOTIDINE 20 MG TABLET PO ×2 (08:30→20:25)
[2024-07-13] MEDS: CEFEPIME INJ 2 GM in SODIUM CHLORIDE 0.9% (Popper) 50 ML IV ×2 (08:31→20:25)
[2024-07-13] MEDS: POTASSIUM CHLORIDE 20 mEq TABCR PO (09:07)
--- NOTE | 2024-07-13 15:17 | ESPR_ITS ---
<Statement entered by Agueda Ellison MD - 07/13/24 15:34> No acute overnight events. Patient is afebrile, WBC improved, currently 8.2, vitals within normal limits, CMP is insignificant. ANC today is 4.6, patient will continue to get filgrastim subcu injection, still complaining of headache, MRI was ordered to rule out any metastatic lesions, which was negative, we will address headache with migraine cocktail, will reassess the patient. Will continue cefepime for now, on discharge patient will be DC with p.o. Levaquin for 14 more days to complete treatment of pneumonia in immunocompromised patient. Anticipate discharge in next 24 hours. I personally saw and examined the patient and discussed the assessment and plan with the entire medicine team, including my attending Dr. Chang Ellison M.D. PGY-2 Disclaimer: Despite multiple revisions, due to the dictation software being used, the document bellow may not be free of grammatical errors including phonetic/typographic errors. However, this does not deter from our commitment to providing health care in the patient's best interest in mind. Documentation for date of: 07/13/24 Subjective Subjective Interval history: No overnight events. Patient continues to complain of left temporal headache. MRI negative for any mets from lung carcinoma to brain. Patient's TERESSA >2000 thus filmgrastim discontinued. Exam Vital Signs Temp Pulse Resp BP Pulse Ox O2 Del Method O2 Flow Rate 98.1 F 103 H 18 120/65 94 L Room Air 1 07/13/24 11:15 07/13/24 11:15 07/13/24 11:15 07/13/24 11:15 07/13/24 11:15 07/13/24 11:15 07/08/24 15:45 FiO2 65 07/08/24 02:16 Narrative Exam General Appearance: Alert & Oriented X3, thin male who is lying in bed in no acute distress HEENT: Skull symmetrical and atraumatic. Conjunctivae pin and moist. Pupils equal, round, reactive to light and accommodation (PERRL). External ear without lesion or discharge. Straight, nares patient, mucosa pink, no discharge. Cardio: Normal Rate and Rhythm with S1 and S2 heart sounds. No murmurs or extra heart sounds auscultated. No bruits on carotid auscultation. No peripheral edema or cyanosis. Lungs: Symmetric with good expansion. Chest and back non-tender. Breath sounds vesicular no rhonhci appreciated. Abdomen: Non-tender, Non-distended, Normal Reactive Bowel Sounds Neuro: Alert, cooperative, oriented to person, place, and time. Speech clear. CN grossly intact. Upper motor strength 5/5 and Lower motor strength 5/5. Sensation intact. Objective Labs 07/13/24 04:15 07/13/24 04:15 Labs: Laboratory Results - last 24 hr 07/07/24 07/13/24 19:36 04:15 WBC 6.9 D RBC 2.60 L Hgb 8.2 L Hct 23.5 L MCV 90 MCH 31.5 MCHC 34.9 RDW Std Deviation 53.6 H Plt Count 40 L Neut % (Auto) 67 Lymph % (Auto) 6 L Giles % (Auto) 15 H Eos % (Auto) 0 Baso % (Auto) 1 Neut # (Auto) 4.6 Lymph # (Auto) 0.4 L Giles # (Auto) 1.0 H Eos # (Auto) 0.0 Baso # (Auto) 0.1 Immature Gran # (Auto) 0.75 H Absolute Nucleated RBC 0.04 H Immature Gran % 11 H Nucleated RBC % 1 H Sodium 137 Potassium 3.8 Chloride 106 Carbon Dioxide 22.7 Anion Gap 8 BUN 18 Creatinine 1.0 Estim Creat Clear Calc 74.1 eGFR > 60 BUN/Creatinine Ratio 18 Glucose 88 Calculated Osmolality 274 L Calcium 8.6 Corrected Calcium 9.2 Phosphorus 2.7 Magnesium 1.8 Total Bilirubin 0.6 AST 13 ALT 17 Alkaline Phosphatase 185 H Total Protein 5.6 L Albumin 3.2 L Globulin 2.4 Albumin/Globulin Ratio 1.3 Misc Test Result Platelets confirmed Blood Type A Positive Antibody Screen NEGATIVE Crossmatch See Detail Blood Bank Wristband ID Yes Blood Bank Comment PLATP Ready Quality Measures Quality Measures none Assessment & Plan Assessment Current Active Medications: Generic Name Dose Route Start Last Admin Trade Name Freq PRN Reason Stop Dose Admin Acetaminophen 650 mg 07/09/24 18:04 07/12/24 22:33 Acetaminophen 325 Mg Tablet PO 08/07/24 01:32 650 mg Q6H PRN Administration Pain 1-3 or Fever >100.3 Benzonatate 200 mg 07/11/24 10:57 07/11/24 11:11 Benzonatate 100 Mg Capsule PO 08/08/24 17:58 200 mg Q8HR PRN Administration COUGH Protocol Famotidine 20 mg 07/08/24 09:00 07/13/24 08:30 Famotidine 20 Mg Tablet PO 08/07/24 08:59 20 mg BID ARI Administration Cefepime HCl 2 gm/ Sodium 50 mls @ 100 mls/hr 07/08/24 01:40 07/13/24 08:31 Chloride IV 07/15/24 01:39 100 mls/hr Q12HR ARI Administration Ketorolac Tromethamine 15 mg 07/12/24 14:10 07/12/24 17:39 Ketorolac Inj 30 Mg/Ml Vial IVP 07/17/24 14:09 15 mg Q6HR PRN Administration PAIN Protocol Ondansetron HCl 4 mg 07/08/24 01:33 Ondansetron Inj 2 Mg/Ml Inj 2 Ml IV 08/07/24 01:32 Q6H PRN NAUSEA OR VOMITING Protocol Sennosides 1 tab 07/08/24 02:48 07/11/24 05:03 Senna Tablet PO 08/07/24 08:59 1 tab QDAY PRN Administration CONSTIPATION Protocol Plan Patient is a 64 year old male with past medical history of small cell lung cancer s/p radiation on chemotherapy who was admitted directly into ICU for Septic Shock secondary to pneumonia after being placed on pressors and subsequently downgraded on 07/09/2024. #Pneumonia, improving, CAP likely GPC Given patient's immunocompromised state, opportunistic bacteria can not be ruled out but likely gram positive such as strep pneumonia or H. hemophilus. CTA: Extensive left lung pneumonia prominent at left lung base Mild Pneumonia right base MRSA: negative -Legionella Negative UA culture 48 hours negative Blood Culture Negative Plan -Consider sputum culture, denied productive cough, unable to obtain sample -Cefepime 2 mg IV Q12HR 07/08/2024- -D/C Micafungin 100 mg IV Qday 07/08/2024-07/10/2024 -D/C Vancomycin 07/08/2024--07/10/2024 -D/C Azithromycin 500 mg IV Qday 07/08/2024--07/10/2024 #Pancytopenia, improving #Neutropenic fever, improved Given past medical history of small cell carcinoma and chemotherapy/radiation making patient immunocompromised. Patient required 2 units of RBCs on admission. Plan -Isolation Precautions -Filgrastim 480 mcg SC Qday, D/C 07/13/2024 -Will continue with filgrastim until ANC above 2000 -Transfuse if hgb <7 #Small Cell Carcinoma #headache S/p small cell carcinoma metastatis stage IV w/ radiaotion and chemotherapy (june 2024). Brain MRI negative to rule out mets to brain given persistent headache. Plan -Benadrly, Ketorolac, and metoclopramide for headache X 1 -no acute intervention in hospital -Dr. Rutledge following as outpatient #Hyperbilirubinemia Likey of the setting of hepatic metastatis vs increased bone marrow destruction secondary to on going chemo U/S showed negative cholelithiasis Plan No acute intervention #Acute Hypoxic Respiratory Failure, Resolved Septic Shock, secondary to pneumonia, Resolved. Health Maintenance: Disp: Pt is currently admitted to floors for further management of neutropenic fever, awaiting clinical improvement FEN: regular diet DVT: compression device, plt count of 40 Code: Full Code - The patient's plan was discussed with attending Dr. Downing and senior residents Dr. Terra Singh MD PGY1 Internal Medicine
[2024-07-13] MEDS: DiphenhydrAMINE INJ 50 MG/ML VIAL 12.5 MG IVP (15:49)
[2024-07-13] MEDS: METOCLOPRAMIDE INJ 5 MG/ML VIAL 2 ML 10 MG IVP (15:49)
[2024-07-13] MEDS: KETOROLAC INJ 30 MG/ML VIAL 15 MG IVP (15:50)
--- NOTE | 2024-07-13 16:14 | PC.SS ---
SS rounding note: MRI of head pending, has persistent headache.
[2024-07-14] VITALS: BP 125/75; PULSE 102; PULSE 106; RESP 18; TEMP 36.7; O2SAT 92
[2024-07-14 04:00] VITALS: BP 118/67; PULSE 100; PULSE 99; RESP 18; TEMP 36.6; O2SAT 92
[2024-07-14 05:52] LABS: Basophils # (Auto) 0.1 Thou/mm3 (0.0-0.2); Basophils % (Auto) 1 % (0-2.5); Eosinophils % (Auto) 0 % (0-10); Immature Granulocytes % (Auto) 12 % (0-0); Immature Granulocytes Auto 1.55 Thou/mm3 (0.00-0.00); Lymphocytes # (Auto) 0.6 Thou/mm3 (1.0-4.8); Lymphocytes % (Auto) 5 % (10-50); Mean Corpuscular HGB Conc 34.2 g/dl (31.0-37.0); Mean Corpuscular Hemoglobin 31.1 pg (25.0-35.0); Mean Corpuscular Volume 91 fL (80-100); Monocytes % (Auto) 16 % (0-12); Neutrophils # (Auto) 8.4 Thou/mm3 (1.8-7.7); Neutrophils % (Auto) 67 % (37-80); Nucleated Red Blood Cell # 0.05 Thou/mm3 (0.00-0.00); Nucleated Red Blood Cell % 0 /100 WBC (0); RDW Standard Deviation 54.6 fL (35.1-43.9); Red Blood Count 2.64 Miln/mm3 (4.50-5.90); White Blood Count 12.7 Thou/mm3 (3.8-10.6)
[2024-07-14 05:57] LABS: Hemoglobin 8.2 g/dL (13.5-16.0); Platelet Count 48 Thou/mm3 (140-440)
[2024-07-14 06:00] VITALS: BMI 28.2
[2024-07-14 06:49] LABS: Alanine Aminotransferase 14 U/L (10-49); Albumin, Serum 3.4 gm/dL (3.4-4.8); Albumin/Globulin Ratio 1.4 (1.2-2.2); Alkaline Phosphatase 185 U/L (46-116); Anion Gap 10 (7-16); Aspartate Amino Transferase 13 U/L (0-34); BUN/Creatinine Ratio 16 Ratio (12-20); Bilirubin,Total 0.6 mg/dL (0.3-1.2); Blood Urea Nitrogen 16 mg/dL (9-23); Calcium 8.6 mg/dL (8.3-10.6); Calcium (Corrected) 9.1 mg/dL (8.5-10.1); Carbon Dioxide 23.9 mMol/L (20.0-31.0); Chloride 105 mMol/L (98-107); Estimated Creatinine Clearance 74.1 mL/min (>60); Globulin 2.4 gm/dL (2.3-3.5); Glucose 94 mg/dL (74-106); Magnesium 1.7 mg/dL (1.6-2.6); Osmolality,Calculated 278 (275-295); Potassium 3.8 mMol/L (3.4-5.1); Sodium 139 mMol/L (136-145); Total Protein 5.8 gm/dL (5.7-8.2); eGFR > 60 See Note
[2024-07-14 07:21] VITALS: BP 99/74; PULSE 94; RESP 22; TEMP 36; O2SAT 93
[2024-07-14 07:43] VITALS: PULSE 103
[2024-07-14 08:06] LABS: Slide Review Platelets confirmed
[2024-07-14] MEDS: FAMOTIDINE 20 MG TABLET PO (08:07)
[2024-07-14] MEDS: CEFEPIME INJ 2 GM in SODIUM CHLORIDE 0.9% (Popper) 50 ML IV (08:08)
[2024-07-14] MEDS: ACETAMINOPHEN 325 MG TABLET 650 MG PO (08:08)
[2024-07-14] MEDS: BENZONATATE 100 MG CAPSULE 200 MG PO (08:08)
--- NOTE | 2024-07-14 08:45 | XR_ITS ---
Examination: AP chest single view Technique one AP portable upright chest single view Exam date and time: July 14, 2024 0901 hrs. Comparison July 07, 2024 Indications: Coughing beginning 3 days ago. Findings: Left perihilar left basilar pneumonia Mild left pleural fluid Extensive left apical parenchymal disease Mild enlargement cardiac contour Right internal jugular Port-A-Cath tip satisfactory position Impression: Significant left lung pneumonia
[2024-07-14] MEDS: POTASSIUM CHLORIDE 20 mEq TABCR PO (09:07)
[2024-07-14] MEDS: Magnesium Sulfate 2 GM Ivpb 2 GM/50 ML BAG IV (09:07)
[2024-07-14 11:26] VITALS: PULSE 96
[2024-07-14 11:35] VITALS: BP 99/60; PULSE 95; RESP 26; TEMP 36.5
[2024-07-14] MEDS: HEPARIN SOD LOCK SYR 100 UNIT/ML 500 UNIT INTRACATH (12:38)
--- NOTE | 2024-07-14 13:09 | ESDS_ITS ---
<Statement entered by Jael Downing MD - 07/18/24 15:08> I reviewed above note and agree with findings and plans. I have also personally examined the patient with medicine team and went over assessment and plan with medical team including product marketing intern and resident physician. Discharge time more than 30 minutes. <Statement entered by Agueda Ellison MD - 07/14/24 15:42> I discussed with and supervised the product marketing intern physician who took care of this patient. I personally saw and examined the patient and discussed the assessment and plan with the entire medicine team, including my attending , I agree with the assessment and plan as documented below Agueda Ellison M.D. PGY-2 Disclaimer: Despite multiple revisions, due to the dictation software being used, the document bellow may not be free of grammatical errors including phonetic/typographic errors. However, this does not deter from our commitment to providing health care in the patient's best interest in mind. Planned Discharge Date 07/14/24 DS: Providers Provider Date of admission: 07/08/24 01:33 Primary care physician: Physician No Primary/Family Admitting Provider: Maliha Maloney MD Attending Provider on Admission: Jael Downing MD Consults: 07/07/24 22:15 Referral Respiratory Therapy Stat Comment: Attending Provider on DC: Catherine Singh MD Discharging Provider: Catherine Singh MD DS: Diagnosis Problem List Completed Was Problem List Reviewed/Reconciled?: Yes Hospital Course Hospital Course Hospital course: Summary: Patient is a 64 year old male with past medical history of small cell lung cancer s/p radiation on chemotherapy who was admitted directly into ICU for Septic Shock secondary to pneumonia after being placed on pressors and subsequently downgraded on 07/09/2024 for further managment on floors for CAP, likely GPC and Pancytopenia with Filgrastin. ER Course: Initial vitals stable afebrile and on room air; then tachycardic as high as 150s. He was initially hypothermic at 87.1 rectal temp and briefly placed on Richar Hugger. Labs showed pancytopenia with WBC 1.3 and Hb of 7.8. CTA did not show PE but showed significant left-sided pneumonia. EKG showed afib versus SVT and ER spoke to branch assistant who recommended diltiazem, which was ultimately held due to hypotension. During this time, tachycardia improved however patient was hypoxic at 90%, thus placed on 10L of Oxygen. Blood pressure declined to 85/58 and patient was febrile at 102.7. He was given 3L of IVF, Zosyn, Doxy, Tylenol, and zofran, and 1 PRBC Hospital Course: Patient is a 64-year-old male with a limited past medical history that includes loss of lung carcinoma status post radiation and chemotherapy. Patient was admitted directly into ICU on 07/08/2024 secondary to neutropenic fever and septic shock. Patient was started on Levophed for septic shock, blood cultures obtained, and urine cultures obtained. Chest x-ray on 07/07/2024 showed parenchymal disease in the left upper lobe consistent with pneumonia or chronic infiltrates?this is likely secondary to cancer. CTA chest was negative for any pulmonary emboli. Extensive left lung pneumonia prominent at the left side and mild right base pneumonia. Patient was started on filgrastim 480 mcg subcutaneous daily given neutrophil count. Patient's milligrams from was DC'd on 07/14/2023 after ANC above 2000. Pancytopenia improved. Neutropenic fever resolved on 07/09/2024. Patient's pneumonia likely From GPC continue to improve. Blood cultures negative after 48 hours urine cultures negative after 48 hours. Patient initially started on azithromycin and vancomycin micafungin and cefepime. Azithromycin Vanco and micafungin were DC'd on 07/10/2024. Patient completed cefepime course from 07/08/2024 until 07/13/2024. Patient will be discharged on antibiotics. Brain MRI negative for acute hemorrhages mass effect or midline shift, no acute infarct, mild chronic microvascular white matter changes, with no abnormal enhancing cerebellar or cerebral lesions. Instructions: -Please complete antibiotic course for pneumonia, Levolfoxacin 750 mg once a day, until July 21 to complete course of antibiotics -Please continue all home medication as prescribed -Please follow up with your oncologist within one week of discharge from the hospital -Please follow up with your primary care provider within one week of discharge -If your symptoms worsen,please seek immediate medical attention and return to your nearest emergency room -If you do not have a primary care provider, you may follow up at the [facility] at [address], [place] [address], #Pneumonia, improving, CAP likely GPC, improved #Pancytopenia, improving #Neutropenic fever, resolved #Small Cell Carcinoma #Headache #Hyperbilirubinemia #Acute Hypoxic Respiratory Failure, Resolved Septic Shock, secondary to pneumonia, Resolved. - The patient's plan was discussed with attending Dr. Downing and senior residents Dr. Terra Singh MD PGY1 Internal Medicine Time Spent with Patient Time attestation: Total time spent providing and/or coordinating discharge services: at least 30 minutes of care and coordination Exam Vital Signs Temp Pulse Resp BP Pulse Ox O2 Del Method O2 Flow Rate 97.7 F 95 26 H 99/60 93 L Room Air 1 07/14/24 11:35 07/14/24 11:35 07/14/24 11:35 07/14/24 11:35 07/14/24 07:21 07/14/24 11:35 07/08/24 15:45 FiO2 65 07/08/24 02:16 Narrative Exam General Appearance: Alert & Oriented X3, well-nourished male who is lying in bed in no acute distress HEENT: Skull symmetrical and atraumatic. Conjunctivae pin and moist. Pupils equal, round, reactive to light and accommodation (PERRL). External ear without lesion or discharge. Straight, nares patient, mucosa pink, no discharge. No thyroid nodule appreciated. No cervical lymphadenopathy. Cardio: Normal Rate and Rhythm with S1 and S2 heart sounds. No murmurs or extra heart sounds auscultated. No bruits on carotid auscultation. No peripheral edema or cyanosis. Lungs: Symmetric with good expansion. Chest and back non-tender. Breath sounds vesicular without crackles, wheezing or rhonchi Abdomen: Non-tender, Non-distended, Normal Reactive Bowel Sounds Neuro: Alert, cooperative, oriented to person, place, and time. Speech clear. CN grossly intact. Upper motor strength 5/5 and Lower motor strength 5/5. Sensation intact. Discharge Plan Plan Patient Disposition: HOME (Self Care) Patient condition on transfer: Stable Care Plan Goals: Instructions: -Please complete antibiotic course for pneumonia, Levolfoxacin 750 mg once a day, until July 21 to complete course of antibiotics -Please continue all home medication as prescribed -Please follow up with your oncologist within one week of discharge from the hospital -Please follow up with your primary care provider within one week of discharge -If your symptoms worsen,please seek immediate medical attention and return to your nearest emergency room -If you do not have a primary care provider, you may follow up at the [facility] at [address], [place] [address], Altaelimatu: - yurja 'iikmal dawrat almudadaat alhayawiat lieilaj alailtihab alriyawii, lifulfuksasin [address], [address] 'shivani li'iikmal dawrat almudadaat alhayawiati. - yurja aliastimrar fi varghese stevenson al'adwiat almanziliat almusufa. - yurja almutabaeat castillo tabib al'awram khilal 'usbue wahid min alkhuruj min almustashfaa. - yurja almutabaeat castillo muqadam alrieayat alsihiyat al'awaliat khilal 'usbue wahid min alkhuruwji. - 'iidha sa'at al'aeradi, yurja talab alrieayat altibiyat alfawriat waleawdat 'iilaa 'aqrab ghurfat tawarii. - 'iidha mansfield yakun ladayk muqadam rieayat sihiyat 'awaliatin, [place] almutabaeat [facility] alsihiyi al'akadimii [address] [facility] [address], [place] [address], hat[place]: Prescriptions/Referrals Prescriptions/Med Rec: New levofloxacin 750 mg tablet 750 mg PO QDAY Qty: 7 0RF acetaminophen [Tylenol] 325 mg Tablet 650 mg PO Q6H PRN (Reason: Pain 1-3 or Fever >100.3) 14 Days Qty: 14 0RF Referrals: Rizwan Rutledge MD [Physician] - No Primary/Family,Physician [Primary Care Provider] - Patient/Caregiver Discharge Instructions Discharge Activity: activity as tolerated Education Materials: Understanding Post Sepsis Syndrome, What Is Pneumonia?, Preventing Pneumonia, Sepsis, Preventing Common Respiratory ... Print Language: Uzbek Stand Alone Forms: Kiera Award Info., Patient Portal Info Letter Discharge Order Discharge Orders: Discharge (Routine); Ordered 07/14/24 Ordered By: Catherine Singh Quality Discharge Quality Measures VTE prophylaxis
[2024-07-14 15:20] LABS: Band Neutrophils (Manual) 9 % (0-6); Lymphocytes (Manual) 13 % (20-44); Metamyelocytes (Manual) 2 % (0-0); Monocytes (Manual) 9 % (2-9); Neutrophils (Manual) 67 % (50-70)
--- NOTE | 2024-07-14 16:08 | PC.SS ---
rounding note: Patient to d/c home today. No d/c needs.
== END 2024-07-14 12:55 | disposition home or self-care (01) | DRG 720 ==
LOC: SERX 07-08 01:21 → S2SX 07-08 06:20 → SERHOLD 07-08 14:20 → S2SX 07-09 08:10 → S3NX 07-09 20:31
PROVIDERS: Registered Nurse General Practice; Student in an Organized Health Care Education/Training Program; Admitting Provider Student in an Organized Health Care Education/Training Program; Emergency Provider Emergency Medicine; Visit Provider Internal Medicine
DX: A41.9 Sepsis, unspecified organism (principal); R65.21 Severe sepsis with septic shock; G89.3 Neoplasm related pain (acute) (chronic); D61.818 Other pancytopenia; J18.9 Pneumonia, unspecified organism; D70.9 Neutropenia, unspecified; E86.0 Dehydration; J96.01 Acute respiratory failure with hypoxia; C34.90 Malignant neoplasm of unspecified part of unspecified bronchus or lung; C78.7 Secondary malignant neoplasm of liver and intrahepatic bile duct; C79.51 Secondary malignant neoplasm of bone; E87.20 Acidosis, unspecified; D84.9 Immunodeficiency, unspecified; R50.81 Fever presenting with conditions classified elsewhere; Z92.3 Personal history of irradiation; Z87.891 Personal history of nicotine dependence; Z78.9 Other specified health status; Z85.118 Personal history of other malignant neoplasm of bronchus and lung; Z92.21 Personal history of antineoplastic chemotherapy
CPT/HCPCS: 36415; 36430; 70553; 71045; 71275; 76705; 80053; 80202; 80307; 81001; 83605; 83615; 83690; 83735; 83880; 84100; 84145; 84439; 84443; 84484; 85014; 85018; 85025; 85610; 85730; 86331; 86635; 86850; 86900; 86901; 86923; 86927; 86965; 87040; 87081; 87086; 87400; 87449; 87634; 87811; 93005; 93225; 96361; 96365; 99285; A4649; A9579; J0131; J0456; J0692; J1200; J1642; J1885; J2247; J2405; J2543; J2765; J3370; J3475; J3480; J3490; J7030; J7040; J7050; J7120; J7999; P9016; P9035; P9060; Q5101; Q9967; A9270

== ENCOUNTER 2024-08-03 07:58 | Outpatient (RCR) | payer MEDICAID, SELFPAY ==
--- NOTE | 2024-07-26 19:40 | CTCFLWUP_ITS ---
Patient: ELLE MAYA : 1960 Page 2 of 2 FOLLOW UP NOTE DATE OF SERVICE: 07/07/2024 NAME: ELLE MAYA ACCOUNT: [id number] : 1960 AGE: 64 INTERVAL HISTORY: Patient was seen in the clinic. Patient had altered mentation. He was sick in the home before coming to the clinic. Patient has not been eating and drinking for last 4 days. While patient was being roomed, patient lost consciousness. Patient was weakened after sternal rub and rapid response code was called. IV IV fluids were started. Patient was hypotensive and tachycardic. Ambulance was called and patient was transferred to emergency room with them ambulance. 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 DATE OF DIAGNOSIS: 10/31/2022 as a limited stage small cell lung cancer July 2023 as advanced stage small cell lung cancer STAGE/TNM: Advanced stage small cell lung cancer on second line therapy TREATMENT HISTORY: Care?Plan Start?Date Cycle Day Intent CISplatin?75?mg/m*2,?Etoposide?with?XRT?for?limited?small?cell?lung?ca 01/01/2023 1 21 Curative?(primary) carboplatin?and?irinotecan 12/15/2023 1 28 Palliative zometa?q?30?days,?q?90?days?for?bone?mets 12/15/2023 1 90 Palliative Lurbinectedin 04/28/2024 1 21 Palliative HISTORY OF PRESENT ILLNESS: Elle Maya is a 64-year-old CARLOS speaking Other male following oncology history. September 2022: Patient was diagnosed with community-acquired pneumonia in [place]. Treated with antibiotics. 10/31/2022: Mr. Maya had a bronchoscopy done in [place] due to persistent pneumonia. 11/07/2022: 11/19/2022: MRI of the brain with and without contrast 12/05/2022: PET/CT scan 01/01/2023: Patient had first cycle of cisplatin and 3 days of etoposide. 12/30/2022 - 02/10/2023: Mr. Maya had 5400 cGy radiation along with chemotherapy 01/22/2023: Mr. Maya had second cycle of cisplatin and 1 day of etoposide. 02/12/2023: Mr. Maya had third cycle of cisplatin 03/17/2023: Mr. Maya had fourth cycle of cisplatin 04/18/2023: PET/CT scan? 07/22/2023: PET/CT scan? 11/28/2023: CT scan of the abdomen and pelvis with IV contrast 12/01/2023: MRI of the lumbar spine without contrast MRI brain 02/03/2024 shows no metastatic disease in the brain Ct chest 03/10/2024 OTHER MEDICAL HISTORY/CONDITIONS: Small cell lung cancer - recently diagnosed Denies FAMILY HISTORY: Father:?2006?LUNG?CANCER,??2009 Sibling:?SISTER?BREAST?CA Cancer History:?PATERNAL UNCLE, PROSTATE [place] SOCIAL HISTORY: Occupational?History:?RETIRED Education?Level:?College Graduate, 2 year degree Marital?Status:? Tobacco?Pack?per?Day:?1 Tobacco?Use?Years:?45 Tobacco?Use:?STOPPED?3?MO?AGO ETOH?Use:?SOCIAL?DRINKER Drug?Note:?Denies Social?History?Note:?Lives?with?son MEDICATIONS: 1. Ambien - 10 mg 1 tab Daily 2. azithromycin - 250 mg 1 tab Daily 3. dexamethasone - 4 mg 2 tab daily for 2 days after each ch 4. morphine - 30 mg 1 Capsule three times a day 5. naloxegoL - 12.5 mg 1 tab Daily 6. OLANZapine - 2.5 mg 1 tab Daily 7. ondansetron HCl - 8 mg 1 tab every 8 hours as needed for nausea 8. senna - 8.6 mg 2 tab twice a day Medications Last Reconciled by Makenna Roldan MD on 07/07/2024 ALLERGIES: No Known Drug Allergies REVIEW OF SYSTEMS: A complete 14-point review of systems was performed and is negative except as noted in interval history. PHYSICAL EXAMINATION: VITAL SIGNS: Temperature?98.4, B/P?90/59, Oxygen?Saturation?98% Weight?160?lbs (Change?since?06/30/24:?-1?lbs) PAIN: 0 - No pain ECOG Performance Status: None EYE: Conjunctivae is white MOUTH: Oral cavity is moist . LABORATORY DATA: I have personally reviewed and interpreted each of the patient?s relevant lab tests, abnormal findings are below: Date 07/13/24 07/14/24 ??WHITE?BLOOD?COUNT?(Thou/mm3) ? 12.7?H ??RED?BLOOD?COUNT?(Miln/mm3) ? 2.64?L ??HEMOGLOBIN?(gm/dl) ? 8.2?L ??HEMATOCRIT?(%) ? 24.0?L ??PLATELET?COUNT?(Thou/mm3) ? 48?L ??NEUTROPHILS?%,?AUTO?(%) ? 67 ??LYMPH?%,?AUTO?(%) ? 5?L ??NEUTROPHILS,?AUTO?(Thou/mm3) ? 8.4?H ??GLUCOSE,RANDOM?(mg/dL) 88 94 ??BLOOD?UREA?NITROGEN?(mg/dL) 18 16 ??CREATININE?(mg/dL) 1.00 1.00 ??SODIUM?(mmol/L) 137 139 ??POTASSIUM?(mmol/L) 3.8 3.8 ??CHLORIDE?(mmol/L) 106 105 ??CrCl?(CandG)?(ml/min) 76.61 76.61 ??AST/SGOT?(Unit/L) 13 13 ??ALT/SGPT?(Unit/L) 17 14 ??ALKALINE?PHOSPHATASE?(Unit/L) 185?H 185?H ??BILIRUBIN,?TOTAL?(mg/dL) 0.6 0.6 ??PROTEIN?TOTAL?(gm/dl) 5.6?L 5.8 ??ALBUMIN,?SERUM?(gm/dl) 3.2?L 3.4 ??GLOBULIN?(gm/dl) 2.4 2.4 ??ALBUMIN/GLOBULIN?RATIO 1.3 1.4 ??CALCIUM,?SERUM?(mg/dL) 8.6 8.6 ??CALCIUM?SERUM?(CORRECTED)?(mg/dL) 9.2 9.1 ??MAGNESIUM?(mg/dL) ? 1.7 ASSESSMENT/PLAN: Small cell lung cancer extensive stage-recurrence of the cancer Patient with 45-year pack smoking history Patient initially had limited stage disease S/p chemoradiation 12/30/2022 - 02/10/2023: Mr. Maya received 5400 cGy radiation therapy along with cisplatin and etoposide. Mr. Maya had 4 cycles of cisplatin and etoposide (01/01/2023 - 03/17/2023) PET/CT scan (07/22/2023 showed improvement p Patient had MRI brain and was negative Patient did not receive any prophylactic radiation Patient started having back pain in August 2023 CT scan of the abdomen showed extensive hepatic metastasis as well as pericaval lymphadenopathy (11/28/2023). MRI of the lumbar spine showed osseous metastasis as documented above (12/01/2023) Mr. Maya has mild tingling and numbness most likely secondary to cisplatin. He is clinically doing well without any significant complaints. As per patient's medical malpractice paralegal note the aortic window lymph node was also positive for small cell carcinoma. MRI of the brain negative for metastatic disease. Will continue chemotherapy Will get CT chest to evaluate if patient is progressing and cancer is causing worsening of his cough CT chest with IV contrast ordered Will give Tessalon pearls Flonase and azithromycin for cough and possible bronchitis Addendum -03/14/2024--CT scan completed on 03/10/24 reviewed and shows progression of disease. Patient needs change of chemotherapy. Discussed with patient that I would like to change treatment to lurbinectedin Treatment change cesar CBC CMP MRI brain New chemotherapy orders placed Patient s CT scan was not compared to the last scan . will repeat pet scan as per radiologist request and brain mri Patient is getting radiation to spine and 7 more treatments remaining. Will start chemotherapy now Clinically patient is doing well and still gaining weight Back pain is still persistant and hopefully will get better with radiation ORDERS: Order # Description [id number] Follow Up Appointment [id number] Follow Up Appointment RETURN TO CLINIC: BILLING AND COMPLIANCE: I reviewed external records from providers outside my specialty as summarized above. I spent a total of 50 minutes on this patient?s care on the day of their visit excluding time spent related to any billed procedures. This time includes time spent with the patient as well as time spent documenting in the medical record, reviewing patients records and tests, obtaining history, placing orders, communicating with other healthcare professionals, counseling the patient, family or caregiver, and/or care coordination for the diagnoses above. Electronically Signed by: {Object.Sanct_ID*PnP.NameFL@}, {Object.Sanct_ID*PnP.Suffix@U} D: {Object.Sanct_Date} T: {Object.Sanct_Time} CC: PCP: Guy Ramon Referring: Guy Ramon This document was completed utilizing speech recognition software. Grammatical errors, random word insertions, pronoun errors, and incomplete sentences are an occasional consequence of this system due to software limitations, ambient noise, and hardware issues. Any formal questions or concerns about the content, text or information contained within the body of this dictation should be directly addressed to the provider for clarification.
[2024-07-27 11:18] LABS: Basophils # (Auto) 0.1 Thou/mm3 (0.0-0.2); Basophils % (Auto) 1 % (0-2.5); Eosinophils % (Auto) 0 % (0-10); Hemoglobin 9.7 g/dL (13.5-16.0); Immature Granulocytes % (Auto) 0 % (0-0); Immature Granulocytes Auto 0.02 Thou/mm3 (0.00-0.00); Lymphocytes # (Auto) 1.2 Thou/mm3 (1.0-4.8); Lymphocytes % (Auto) 24 % (10-50); Mean Corpuscular HGB Conc 33.4 g/dl (31.0-37.0); Mean Corpuscular Hemoglobin 31.7 pg (25.0-35.0); Mean Corpuscular Volume 95 fL (80-100); Monocytes # (Auto) 0.9 Thou/mm3 (0.0-0.8); Monocytes % (Auto) 19 % (0-12); Neutrophils # (Auto) 2.7 Thou/mm3 (1.8-7.7); Neutrophils % (Auto) 55 % (37-80); Nucleated Red Blood Cell % 0 /100 WBC (0); Platelet Count 179 Thou/mm3 (140-440); RDW Standard Deviation 66.3 fL (35.1-43.9); Red Blood Count 3.06 Miln/mm3 (4.50-5.90); White Blood Count 4.9 Thou/mm3 (3.8-10.6)
[2024-07-27 11:44] LABS: Prostate Specific Antigen 2.38 ng/mL (0-4.00)
[2024-07-27 11:56] LABS: Magnesium 1.9 mg/dL (1.6-2.6)
[2024-07-27 11:59] LABS: Alanine Aminotransferase 15 U/L (10-49); Albumin/Globulin Ratio 1.4 (1.2-2.2); Alkaline Phosphatase 119 U/L (46-116); Anion Gap 9 (7-16); Aspartate Amino Transferase 16 U/L (0-34); BUN/Creatinine Ratio 21 Ratio (12-20); Bilirubin,Total 0.6 mg/dL (0.3-1.2); Blood Urea Nitrogen 25 mg/dL (9-23); Calcium 9.5 mg/dL (8.3-10.6); Calcium (Corrected) 9.5 mg/dL (8.5-10.1); Carbon Dioxide 24.1 mMol/L (20.0-31.0); Chloride 108 mMol/L (98-107); Creatinine (Component) 1.2 mg/dL (0.6-1.3); Globulin 2.9 gm/dL (2.3-3.5); Glucose 171 mg/dL (74-106); Osmolality,Calculated 289 (275-295); Potassium 3.5 mMol/L (3.4-5.1); Sodium 141 mMol/L (136-145); Total Protein 6.9 gm/dL (5.7-8.2); eGFR > 60 See Note
--- NOTE | 2024-07-28 14:10 | CTCFLWUP_ITS ---
Patient: ELLE MAYA : 1960 Page 2 of 2 FOLLOW UP NOTE DATE OF SERVICE: 07/28/2024 NAME: ELLE MAYA ACCOUNT: [id number] : 1960 AGE: 64 INTERVAL HISTORY: Chief Complaint Follow-up for small cell lung cancer treatment History of Present Illness Wilber Almeida, a patient with small cell lung cancer, presents for follow-up after recent imaging showed significant improvement in his condition. The patient's last scan revealed a reduction in tumor sizes across multiple sites: the lung tumor decreased from 13mm to 10mm, the liver nodule from 11mm to 6mm, and the adrenal gland tumor from 20mm to 11mm. No new cancer was detected. The patient reports a reduced appetite but is still eating. He appears to be in good condition overall, with the clinician noting that he is looking very good. Mr. Almeida's current status represents a significant improvement from his previous condition, which he experienced during a trip to [place] where he experienced weight loss, weakness, and fatigue. Mr. Almeida has been responding well to treatment, performing better than the average patient with his condition. His current treatment plan includes ongoing chemotherapy, with the next round scheduled to begin immediately. The patient has been advised to report any new symptoms promptly, particularly new pain, weight loss, reduced appetite, or fatigue, as these could indicate cancer progression. 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 Last oncology note as below ONCOLOGY HISTORY:?[facility] Oncology Hx? 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 DATE OF DIAGNOSIS: 10/31/2022 as a limited stage small cell lung cancer July 2023 as advanced stage small cell lung cancer STAGE/TNM: Advanced stage small cell lung cancer on second line therapy TREATMENT HISTORY: Care?Plan Start?Date Cycle Day Intent CISplatin?75?mg/m*2,?Etoposide?with?XRT?for?limited?small?cell?lung?ca 01/01/2023 1 21 Curative?(primary) carboplatin?and?irinotecan 12/15/2023 1 28 Palliative zometa?q?30?days,?q?90?days?for?bone?mets 12/15/2023 1 90 Palliative Lurbinectedin 04/28/2024 1 21 Palliative HISTORY OF PRESENT ILLNESS: Elle Maya is a 64-year-old CARLOS speaking Other male following oncology history. September 2022: Patient was diagnosed with community-acquired pneumonia in [place]. Treated with antibiotics. 10/31/2022: Mr. Maya had a bronchoscopy done in [place] due to persistent pneumonia. 11/07/2022: 11/19/2022: MRI of the brain with and without contrast 12/05/2022: PET/CT scan 01/01/2023: Patient had first cycle of cisplatin and 3 days of etoposide. 12/30/2022 - 02/10/2023: Mr. Maya had 5400 cGy radiation along with chemotherapy 01/22/2023: Mr. Maya had second cycle of cisplatin and 1 day of etoposide. 02/12/2023: Mr. Maya had third cycle of cisplatin 03/17/2023: Mr. Maya had fourth cycle of cisplatin 04/18/2023: PET/CT scan? 07/22/2023: PET/CT scan? 11/28/2023: CT scan of the abdomen and pelvis with IV contrast 12/01/2023: MRI of the lumbar spine without contrast MRI brain 02/03/2024 shows no metastatic disease in the brain Ct chest 03/10/2024 Physical Examination General: Patient appears to be looking very good. Laboratory, Imaging, and Diagnostic Test Results - Most recent imaging scan (date not specified): - Lung tumor: 10mm (reduced from 13mm) - Liver nodule: 6mm (reduced from 11mm) - Adrenal gland tumor: 11mm (reduced from 20mm) - No new cancer detected OTHER MEDICAL HISTORY/CONDITIONS: Small cell lung cancer - recently diagnosed Denies FAMILY HISTORY: Father:?2006?LUNG?CANCER,??2009 Sibling:?SISTER?BREAST?CA Cancer History:?PATERNAL UNCLE, PROSTATE CA SOCIAL HISTORY: Occupational?History:?RETIRED Education?Level:?College Graduate, 2 year degree Marital?Status:? Tobacco?Pack?per?Day:?1 Tobacco?Use?Years:?45 Tobacco?Use:?STOPPED?3?MO?AGO ETOH?Use:?SOCIAL?DRINKER Drug?Note:?Denies Social?History?Note:?Lives?with?son MEDICATIONS: 1. Ambien - 10 mg 1 tab Daily 2. azithromycin - 250 mg 1 tab Daily 3. dexamethasone - 4 mg 2 tab daily for 2 days after each ch 4. morphine - 30 mg 1 Capsule three times a day 5. naloxegoL - 12.5 mg 1 tab Daily 6. OLANZapine - 2.5 mg 1 tab Daily 7. ondansetron HCl - 8 mg 1 tab every 8 hours as needed for nausea 8. senna - 8.6 mg 2 tab twice a day?Palabra Meds? Medications Last Reconciled by Evita Viveros MA on 07/28/2024 ALLERGIES: No Known Drug Allergies REVIEW OF SYSTEMS: A complete 14-point review of systems was performed and is negative except as noted in interval history. PHYSICAL EXAMINATION:?[facility] PE? VITAL SIGNS: Temperature?97.3, B/P?94/63, Oxygen?Saturation?98% Weight?161?lbs (Change?since?07/27/24:?-0.8?lbs) PAIN: 2 - Mild pain ECOG Performance Status: 1 - Symptomatic; ambulatory; restricted in strenuous activity EYE: Conjunctivae is white MOUTH: Oral cavity is moist . LABORATORY DATA: I have personally reviewed and interpreted each of the patient?s relevant lab tests, abnormal findings are below: Date 07/14/24 07/27/24 ??WHITE?BLOOD?COUNT?(Thou/mm3) ? 4.9 ??RED?BLOOD?COUNT?(Miln/mm3) ? 3.06?L ??HEMOGLOBIN?(gm/dl) ? 9.7?L ??HEMATOCRIT?(%) ? 29.0?L ??PLATELET?COUNT?(Thou/mm3) ? 179 ??NEUTROPHILS?%,?AUTO?(%) ? 55 ??LYMPH?%,?AUTO?(%) ? 24 ??NEUTROPHILS,?AUTO?(Thou/mm3) ? 2.7 ??GLUCOSE,RANDOM?(mg/dL) 94 171?H ??BLOOD?UREA?NITROGEN?(mg/dL) 16 25?H ??CREATININE?(mg/dL) 1.00 1.20 ??SODIUM?(mmol/L) 139 141 ??POTASSIUM?(mmol/L) 3.8 3.5 ??CHLORIDE?(mmol/L) 105 108?H ??CrCl?(CandG)?(ml/min) 76.61 64.56 ??AST/SGOT?(Unit/L) 13 16 ??ALT/SGPT?(Unit/L) 14 15 ??ALKALINE?PHOSPHATASE?(Unit/L) 185?H 119?H ??BILIRUBIN,?TOTAL?(mg/dL) 0.6 0.6 ??PROTEIN?TOTAL?(gm/dl) 5.8 6.9 ??ALBUMIN,?SERUM?(gm/dl) 3.4 4.0 ??GLOBULIN?(gm/dl) 2.4 2.9 ??ALBUMIN/GLOBULIN?RATIO 1.4 1.4 ??CALCIUM,?SERUM?(mg/dL) 8.6 9.5 ??CALCIUM?SERUM?(CORRECTED)?(mg/dL) 9.1 9.5 ??MAGNESIUM?(mg/dL) ? 1.9 ASSESSMENT/PLAN:?Louis Rutledge Assessment/Plan? Small cell lung cancer extensive stage-recurrence of the cancer Patient with 45-year pack smoking history Patient initially had limited stage disease S/p chemoradiation 12/30/2022 - 02/10/2023: Mr. Maya received 5400 cGy radiation therapy along with cisplatin and etoposide. Mr. Maya had 4 cycles of cisplatin and etoposide (01/01/2023 - 03/17/2023) PET/CT scan (07/22/2023 showed improvement p Patient had MRI brain and was negative Patient did not receive any prophylactic radiation Patient started having back pain in August 2023 CT scan of the abdomen showed extensive hepatic metastasis as well as pericaval lymphadenopathy (11/28/2023). MRI of the lumbar spine showed osseous metastasis as documented above (12/01/2023) Mr. Maya has mild tingling and numbness most likely secondary to cisplatin. He was treated with carboplatin and irinotecan from December 2023 till further progression 04/28/2024 started lubrinectidin and Mr. Maya's last scan is showing great response to treatment. Assessment: Patient's last scan showed significant improvement in tumor sizes. The lung tumor reduced from 13mm to 10mm, liver nodule from 11mm to 6mm, and adrenal gland tumor from 20mm to 11mm. No new cancer was detected. The patient has been responding well to treatment, performing better than average with a current disease duration of 15 months compared to the typical average of 15 months. The patient's appetite is reduced but maintaining some oral intake. The patient's overall appearance is noted to be good. Plan: - Continue current chemotherapy regimen - Perform blood work one day prior to next chemotherapy session - Schedule CT scan in 2 months (September) - Monitor for symptoms of disease progression including new pain, weight loss, reduced appetite, or fatigue - If new symptoms occur, perform early CT scan before the scheduled September scan - Anticipate at least one year of additional treatment time with current regimen - Reassess treatment plan based on next scan results and any new available treatments - Follow up after next scan to discuss results and further management Patient has gained weight and his appetite improved. Patient was recently sick with pneumonia and was treated in the emergency room. Since discharge patient is doing well and ready to resume his treatment ORDERS: Order # Description [id number] Comprehensive Metabolic Panel - 12 + CBC with Auto Diff + MD Follow Up [id number] Scan + Chest + Abdomen and Pelvis + With W/O Contrast [id number] CEA [id number] MD Follow Up 2 Months [id number] Follow Up Appointment [id number] Follow Up Appointment MD RETURN TO CLINIC: I will see him back in the clinic in 2 months. BILLING AND COMPLIANCE: I reviewed external records from providers outside my specialty as summarized above. I spent a total of 50 minutes on this patient?s care on the day of their visit excluding time spent related to any billed procedures. This time includes time spent with the patient as well as time spent documenting in the medical record, reviewing patients records and tests, obtaining history, placing orders, communicating with other healthcare professionals, counseling the patient, family or caregiver, and/or care coordination for the diagnoses above. Electronically Signed by: Rizwan Rutledge MD T: 2:08 PM CC: PCP: Guy Ramon Referring: Guy Ramon This document was completed utilizing speech recognition software. Grammatical errors, random word insertions, pronoun errors, and incomplete sentences are an occasional consequence of this system due to software limitations, ambient noise, and hardware issues. Any formal questions or concerns about the content, text or information contained within the body of this dictation should be directly addressed to the provider for clarification.
[2024-07-31 07:04] LABS: Albumin 3.8 g/dL (3.8-4.8); Alpha-1-Globulin 0.3 g/dL (0.2-0.3); Alpha-2-Globulin 0.6 g/dL (0.5-0.9); Beta-1-Globulin 0.5 g/dL (0.4-0.6); Beta-2-globulin 0.5 g/dL (0.2-0.5)
[2024-08-02 07:02] LABS: Protein, total, serum 6.7 g/dL (6.1-8.1)
[2024-08-02 11:22] LABS: Immunoglobulin A 415 mg/dL (70-320); Immunoglobulin G 1169 mg/dL (600-1540); Kappa Light Chain, Free 48.6 mg/L (3.3-19.4); Lambda Light Chain, Free 31.4 mg/L (5.7-26.3)
[2024-08-02 16:08] LABS: Basophils % (Auto) 1 % (0-2.5); Eosinophils # (Auto) 0.1 Thou/mm3 (0.0-0.5); Eosinophils % (Auto) 2 % (0-10); Hematocrit 30.9 % (41.0-53.0); Hemoglobin 10.2 g/dL (13.5-16.0); Immature Granulocytes % (Auto) 1 % (0-0); Immature Granulocytes Auto 0.02 Thou/mm3 (0.00-0.00); Lymphocytes # (Auto) 1.5 Thou/mm3 (1.0-4.8); Lymphocytes % (Auto) 33 % (10-50); Mean Corpuscular Hemoglobin 32.2 pg (25.0-35.0); Mean Corpuscular Volume 98 fL (80-100); Monocytes # (Auto) 0.7 Thou/mm3 (0.0-0.8); Monocytes % (Auto) 16 % (0-12); Neutrophils # (Auto) 2.1 Thou/mm3 (1.8-7.7); Neutrophils % (Auto) 47 % (37-80); Nucleated Red Blood Cell % 0 /100 WBC (0); Platelet Count 191 Thou/mm3 (140-440); RDW Standard Deviation 67.7 fL (35.1-43.9); Red Blood Count 3.17 Miln/mm3 (4.50-5.90); White Blood Count 4.4 Thou/mm3 (3.8-10.6)
[2024-08-02 16:28] LABS: Alanine Aminotransferase 16 U/L (10-49); Albumin, Serum 4.1 gm/dL (3.4-4.8); Albumin/Globulin Ratio 1.3 (1.2-2.2); Alkaline Phosphatase 111 U/L (46-116); Anion Gap 9 (7-16); Aspartate Amino Transferase 18 U/L (0-34); BUN/Creatinine Ratio 15 Ratio (12-20); Bilirubin,Total 0.6 mg/dL (0.3-1.2); Blood Urea Nitrogen 16 mg/dL (9-23); Calcium 9.3 mg/dL (8.3-10.6); Calcium (Corrected) 9.3 mg/dL (8.5-10.1); Carbon Dioxide 23.3 mMol/L (20.0-31.0); Chloride 104 mMol/L (98-107); Creatinine (Component) 1.1 mg/dL (0.6-1.3); Globulin 3.1 gm/dL (2.3-3.5); Glucose 148 mg/dL (74-106); Osmolality,Calculated 276 (275-295); Potassium 3.6 mMol/L (3.4-5.1); Sodium 136 mMol/L (136-145); Total Protein 7.2 gm/dL (5.7-8.2); eGFR > 60 See Note
[2024-08-03 06:20] LABS: Beta 2 Microglobulin 3.68 mg/L (< OR = 2.51); Immunoglobulin M 35 mg/dL (50-300); Kappa/Lambda, Free Ratio 1.55 (0.26-1.65)
== END 2024-08-04 23:59 | disposition home or self-care (01) ==
LOC: SCTC 07:58
PROVIDERS: PCP Family Medicine; Referring Provider Family Medicine; Visit Provider Internal Medicine Hematology & Oncology
DX: Z51.11 Encounter for antineoplastic chemotherapy (principal); C34.90 Malignant neoplasm of unspecified part of unspecified bronchus or lung; C79.51 Secondary malignant neoplasm of bone; C78.7 Secondary malignant neoplasm of liver and intrahepatic bile duct; Z87.891 Personal history of nicotine dependence; Z92.3 Personal history of irradiation; G89.3 Neoplasm related pain (acute) (chronic)
CPT/HCPCS: 36591; 80053; 82232; 82784; 83521; 83735; 84153; 84155; 84165; 85025; 86334; 96367; 96413; 99212; A4216; J1100; J1642; J2405; J7040; J7050; J9223; G0463

== ENCOUNTER → 2024-08-21 | Outpatient (CLI) | payer MEDICAID, SELFPAY ==
--- NOTE | 2024-08-21 12:00 | XR_ITS ---
Examination: MRI lumbar spine, without intravenous contrast. MRI lumbar spine , with intravenous contrast. Exam date and time: August 21, 2024 1201 hours Comparison December 01, 2023 INDICATIONS: Lower back pain 10 months, diagnosis malignant neoplasm lung Technique: Multiple axial, sagittal and coronal images of the lumbar spine have been obtained with the Siemens high-resolution 1.5 Trinity MRI scanner. Images obtained included T2 weighted fat suppressed sagittal sections, TR 3500, TE 46, T2 weighted coronal fat suppressed images, TR 3050, TE 84, T2-weighted transverse fat suppressed images, TR 30-60, TE 63, proton density transverse images, TR 4720, TE 46, and T1 weighted coronal images, TR 560, TE 13. Axial, sagittal and coronal images are obtained post intravenous injection of 15 cc gadolinium. Findings: Abnormal enhancement all lumbar vertebral bodies Interval pathologic compression of the L1 vertebral body, severe, with retropulsion of the posterior superior margin of this vertebral body at least 6 mm Postcontrast images demonstrate enhancement of all visualized osseous structures There are Tarlov cysts at the S2 level No epidural tumor enhancement impinging upon the conus medullaris or cauda equina Abnormal enhancement also sacral segments and iliac bones IMPRESSION: Widespread osseous metastatic disease Severe pathologic compression fracture T12, retropulsion of the posterior superior margin of this vertebral body 6 mm No epidural tumor compression of the conus medullaris or cauda equina
== END | disposition home or self-care (01) ==
LOC: SMRI 11:43
PROVIDERS: PCP Internal Medicine Pulmonary Disease; Referring Provider Internal Medicine Hematology & Oncology; Visit Provider Internal Medicine Hematology & Oncology
DX: M48.54XA Collapsed vertebra, not elsewhere classified, thoracic region, initial encounter for fracture (principal); C79.9 Secondary malignant neoplasm of unspecified site; C34.90 Malignant neoplasm of unspecified part of unspecified bronchus or lung; C79.51 Secondary malignant neoplasm of bone
CPT/HCPCS: 72158; A9579

== ENCOUNTER → 2024-08-27 | Outpatient (CLI) | payer MEDICAID, SELFPAY ==
--- NOTE | 2024-08-27 11:15 | XR_ITS ---
Examination: CT chest with intravenous contrast CT abdomen with intravenous contrast CT pelvis with intravenous contrast 2-D coronal and sagittal reconstructions Time of exam: August 27, [address] chest July 07, 2024, MRI lumbar spine August 21, 2024, CT chest abdomen pelvis June 07, 2024, PET/CT scan May 31, 2024 INDICATIONS: Diagnosis lung carcinoma, patient currently undergoing chemotherapy, staging CTDI: vol (mGy) : 14.9 DLP: (mGycm): 50 Technique: Multiple axial images of the chest, abdomen and pelvis with intravenous contrast, 3.0 mm slice thickness. Images obtained post intravenous injection Isovue 370 60 cc. 2-D sagittal and coronal reconstructions. Low dose protocols were performed. One or more of the following dose reduction techniques were used; automated exposure control, adjustment of the mA and/or KV according to patient size, use of iterative reconstruction technique. Findings: No thoracic cardiac aneurysm dilatation or dissection No pulmonary artery filling defects No interval paratracheal or tracheobronchial adenopathy Scarring in the left mediastinal region Significant decrease in pneumonia left base compared with July 07, 2024 Small left pleural effusion No pulmonary edema No interval liver or splenic lesion No gallstones No pancreatic mass Left adrenal nodule measures 12 mm compared with [address] abdomen March 10, 2024 Left lateral periaortic lymph node measures 8 mm compared to 10 mm on March 10, 2024 Slightly more cephalad 2 mm left lateral periaortic lymph node compared to 4 mm on March 10, 2024 No new abdominal or pelvic lymphadenopathy No bowel obstruction Normal appendix Transverse prostate dimension 4.6 cm Severe osteopenia with widespread osteoblastic metastatic disease Stable severe pathologic compression fracture L1 Progression of osteoblastic metastatic metastatic disease involving T9 and T8 Progression of osteoblastic metastatic disease involving both iliac bones compared with March 10, 2024 IMPRESSION: Significant decrease in pneumonia left base compared with July 07, 2024 Small left pleural effusion Left adrenal nodule measures 12 mm compared to [address] abdomen March 10, 2024 Left lateral periaortic lymph node measures 8 mm compared to 10 mm on March 10, 2024 Left lateral periaortic lymph node measures 2 mm compared to 4 mm on March 10, 2024 No new abdominal or pelvic lymphadenopathy compared with March 10, 2024 Widespread osteoblastic metastatic disease, with progression of osteoblastic metastatic disease involving T9, T8 and both iliac bones compared with March 10, 2024
== END | disposition home or self-care (01) ==
LOC: SCAT 09:26
PROVIDERS: PCP Internal Medicine Hematology & Oncology; Referring Provider Internal Medicine Hematology & Oncology; Visit Provider Internal Medicine Hematology & Oncology
DX: C79.9 Secondary malignant neoplasm of unspecified site (principal); E27.8 Other specified disorders of adrenal gland; J90 Pleural effusion, not elsewhere classified; J18.9 Pneumonia, unspecified organism; C79.51 Secondary malignant neoplasm of bone; C34.90 Malignant neoplasm of unspecified part of unspecified bronchus or lung
CPT/HCPCS: 71260; 74177; A4649; Q9967

== ENCOUNTER 2024-09-03 08:34 | Outpatient (RCR) | payer MEDICAID, SELFPAY ==
--- NOTE | 2024-08-19 12:05 | CTCFLWUP_ITS ---
[facility] [address] [place], [place] [address] FOLLOW-UP NOTE Date: 08/19/2024 MR#: [id number] Name: JUD MAYA : 1960 Dx: C34.90 Malignant neoplasm of unspecified part of unspecified bronchus or lung Identification. Patient with small cell CA initially limited to the chest had chemoradiation completed 5400 cGy completed 02/10/2023. Recurrence noted clinically and according to imaging studies including PET 07/22/2023 And patient received local radiation therapy to L1 3000 cGy via VMAT completed 02/10/2023. Patient had an unfortunate loss of consciousness and had to be admitted last month while at [facility], now out of hospital and feeling better. CT abdomen pelvis 11/28/2023 showed numerous hepatic and left adrenal lesions along with widespread bone mets. New chemotherapy orders have been made by Dr. Maty yanes Patient is doing reasonably at this time not taking any pain meds for his back problem dealing with constipation problem satisfactorily etc. Lungs were clear and No bony tenderness. I will see him as needed in the future. Electronically signed by: Abilio Ugarte M.D. 08/19/2024 12:03 PM
[2024-08-23 11:24] LABS: Basophils % (Auto) 1 % (0-2.5); Eosinophils % (Auto) 1 % (0-10); Hematocrit 28.9 % (41.0-53.0); Hemoglobin 9.4 g/dL (13.5-16.0); Immature Granulocytes % (Auto) 0 % (0-0); Immature Granulocytes Auto 0.01 Thou/mm3 (0.00-0.00); Lymphocytes # (Auto) 1.1 Thou/mm3 (1.0-4.8); Lymphocytes % (Auto) 38 % (10-50); Mean Corpuscular HGB Conc 32.5 g/dl (31.0-37.0); Mean Corpuscular Hemoglobin 32.4 pg (25.0-35.0); Mean Corpuscular Volume 100 fL (80-100); Monocytes # (Auto) 0.9 Thou/mm3 (0.0-0.8); Monocytes % (Auto) 31 % (0-12); Neutrophils # (Auto) 0.8 Thou/mm3 (1.8-7.7); Neutrophils % (Auto) 28 % (37-80); Nucleated Red Blood Cell % 0 /100 WBC (0); Platelet Count 178 Thou/mm3 (140-440)
[2024-08-23 11:47] LABS: White Blood Count 2.8 Thou/mm3 (3.8-10.6)
[2024-08-23 11:52] LABS: Alanine Aminotransferase 19 U/L (10-49); Albumin/Globulin Ratio 1.4 (1.2-2.2); Alkaline Phosphatase 116 U/L (46-116); Anion Gap 9 (7-16); Aspartate Amino Transferase 21 U/L (0-34); BUN/Creatinine Ratio 13 Ratio (12-20); Bilirubin,Total 0.6 mg/dL (0.3-1.2); Blood Urea Nitrogen 17 mg/dL (9-23); Carbon Dioxide 22.7 mMol/L (20.0-31.0); Chloride 108 mMol/L (98-107); Creatinine (Component) 1.3 mg/dL (0.6-1.3); Globulin 2.8 gm/dL (2.3-3.5); Glucose 187 mg/dL (74-106); Osmolality,Calculated 285 (275-295); Potassium 3.5 mMol/L (3.4-5.1); Sodium 140 mMol/L (136-145); Total Protein 6.8 gm/dL (5.7-8.2); eGFR > 60 See Note
[2024-09-03 09:17] LABS: Basophils % (Auto) 1 % (0-2.5); Eosinophils % (Auto) 1 % (0-10); Hematocrit 29.7 % (41.0-53.0); Hemoglobin 10.1 g/dL (13.5-16.0); Immature Granulocytes % (Auto) 0 % (0-0); Immature Granulocytes Auto 0.01 Thou/mm3 (0.00-0.00); Lymphocytes # (Auto) 1.1 Thou/mm3 (1.0-4.8); Lymphocytes % (Auto) 29 % (10-50); Mean Corpuscular Hemoglobin 32.4 pg (25.0-35.0); Mean Corpuscular Volume 95 fL (80-100); Monocytes # (Auto) 0.7 Thou/mm3 (0.0-0.8); Monocytes % (Auto) 19 % (0-12); Neutrophils # (Auto) 1.8 Thou/mm3 (1.8-7.7); Neutrophils % (Auto) 50 % (37-80); Nucleated Red Blood Cell % 0 /100 WBC (0); Platelet Count 196 Thou/mm3 (140-440); RDW Standard Deviation 66.6 fL (35.1-43.9); Red Blood Count 3.12 Miln/mm3 (4.50-5.90); White Blood Count 3.7 Thou/mm3 (3.8-10.6)
[2024-09-03 09:37] LABS: Alanine Aminotransferase 15 U/L (10-49); Albumin, Serum 4.1 gm/dL (3.4-4.8); Anion Gap 12 (7-16); Aspartate Amino Transferase 19 U/L (0-34); BUN/Creatinine Ratio 14 Ratio (12-20); Bilirubin,Total 0.6 mg/dL (0.3-1.2); Blood Urea Nitrogen 18 mg/dL (9-23); Calcium 8.6 mg/dL (8.3-10.6); Calcium (Corrected) 8.6 mg/dL (8.5-10.1); Carbon Dioxide 23.5 mMol/L (20.0-31.0); Chloride 108 mMol/L (98-107); Creatinine (Component) 1.3 mg/dL (0.6-1.3); Globulin 2.6 gm/dL (2.3-3.5); Glucose 105 mg/dL (74-106); Osmolality,Calculated 286 (275-295); Sodium 143 mMol/L (136-145); Total Protein 6.7 gm/dL (5.7-8.2); eGFR > 60 See Note
[2024-09-03 09:38] LABS: Albumin/Globulin Ratio 1.6 (1.2-2.2); Alkaline Phosphatase 103 U/L (46-116)
== END 2024-09-04 23:59 | disposition home or self-care (01) ==
LOC: SCTC 08:34
PROVIDERS: Internal Medicine Hematology & Oncology; PCP Family Medicine; Referring Provider Family Medicine; Visit Provider Radiology Therapeutic Radiology
DX: C34.90 Malignant neoplasm of unspecified part of unspecified bronchus or lung (principal); C78.7 Secondary malignant neoplasm of liver and intrahepatic bile duct; C79.72 Secondary malignant neoplasm of left adrenal gland; C79.51 Secondary malignant neoplasm of bone; Z92.3 Personal history of irradiation
CPT/HCPCS: 36591; 80053; 85025; 96365; 99212; A4216; J1100; J1642; J2405; J3489; J7050; J9223; G0463

== ENCOUNTER 2024-10-04 08:56 | Outpatient (RCR) | payer MEDICAID, SELFPAY ==
--- NOTE | 2024-09-07 06:20 | CTCFLWUP_ITS ---
Patient: ELLE MAYA : 1960 Page 6 of 7 FOLLOW UP NOTE DATE OF SERVICE: 09/06/2024 NAME: ELLE MAYA ACCOUNT: [id number] : 1960 AGE: 64 INTERVAL HISTORY: Chief Complaint Follow-up for small cell lung cancer treatment History of Present Illness Wilber Almeida, a patient with small cell lung cancer, presents for follow-up on CT scan. Patient has been doing well. Patient almost feels at baseline. Patient is on chemotherapy and tolerating well Social History - Travel History: Patient has traveled to [place] in the past Review of Systems General: Positive for decreased appetite. 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 DATE OF DIAGNOSIS: 10/31/2022 as a limited stage small cell lung cancer July 2023 as advanced stage small cell lung cancer STAGE/TNM: Advanced stage small cell lung cancer on second line therapy TREATMENT HISTORY: Care?Plan Start?Date Cycle Day Intent CISplatin?75?mg/m*2,?Etoposide?with?XRT?for?limited?small?cell?lung?ca 01/01/2023 1 21 Curative?(primary) carboplatin?and?irinotecan 12/15/2023 1 28 Palliative zometa?q?30?days,?q?90?days?for?bone?mets 12/15/2023 1 90 Palliative Lurbinectedin 04/28/2024 1 21 Palliative HISTORY OF PRESENT ILLNESS: Elle Maya is a 64-year-old CARLOS speaking Other male following oncology history. September 2022: Patient was diagnosed with community-acquired pneumonia in [place]. Treated with antibiotics. 10/31/2022: Mr. Maya had a bronchoscopy done in [place] due to persistent pneumonia. 11/07/2022: 11/19/2022: MRI of the brain with and without contrast 12/05/2022: PET/CT scan 01/01/2023: Patient had first cycle of cisplatin and 3 days of etoposide. 12/30/2022 - 02/10/2023: Mr. Maya had 5400 cGy radiation along with chemotherapy 01/22/2023: Mr. Maya had second cycle of cisplatin and 1 day of etoposide. 02/12/2023: Mr. Maya had third cycle of cisplatin 03/17/2023: Mr. Maya had fourth cycle of cisplatin 04/18/2023: PET/CT scan? 07/22/2023: PET/CT scan? 11/28/2023: CT scan of the abdomen and pelvis with IV contrast 12/01/2023: MRI of the lumbar spine without contrast MRI brain 02/03/2024 shows no metastatic disease in the brain Ct chest 03/10/2024 Laboratory, Imaging, and Diagnostic Test Results - Most recent imaging scan (date not specified): - Lung tumor: 10mm (reduced from 13mm) - Liver nodule: 6mm (reduced from 11mm) - Adrenal gland tumor: 11mm (reduced from 20mm) - No new cancer detected 08/27/2024 CT scan IMPRESSION: Significant decrease in pneumonia left base compared with July 07, 2024 Small left pleural effusion Left adrenal nodule measures 12 mm compared to [address] abdomen March 10, 2024 Left lateral periaortic lymph node measures 8 mm compared to 10 mm on March 10, 2024 Left lateral periaortic lymph node measures 2 mm compared to 4 mm on March 10, 2024 No new abdominal or pelvic lymphadenopathy compared with March 10, 2024 Widespread osteoblastic metastatic disease, with progression of osteoblastic metastatic disease involving T9, T8 and both iliac bones compared with March 10, 2024 08/21/2024Widespread osseous metastatic disease Severe pathologic compression fracture T12, retropulsion of the posterior superior margin of this vertebral body 6 mm No epidural tumor compression of the conus medullaris or cauda equina OTHER MEDICAL HISTORY/CONDITIONS: Small cell lung cancer - recently diagnosed Denies FAMILY HISTORY: Father:?2006?LUNG?CANCER,??2009 Sibling:?SISTER?BREAST?[place] Cancer History:?PATERNAL UNCLE, PROSTATE [place] SOCIAL HISTORY: Occupational?History:?RETIRED Education?Level:?College Graduate, 2 year degree Marital?Status:? Tobacco?Pack?per?Day:?1 Tobacco?Use?Years:?45 Tobacco?Use:?STOPPED?3?MO?AGO ETOH?Use:?SOCIAL?DRINKER Drug?Note:?Denies Social?History?Note:?Lives?with?son MEDICATIONS: 1. Ambien - 10 mg 1 tab Daily 2. azithromycin - 250 mg 1 tab Daily 3. dexamethasone - 4 mg 2 tab daily for 2 days after each ch 4. morphine - 30 mg 1 Capsule three times a day 5. naloxegoL - 12.5 mg 1 tab Daily 6. OLANZapine - 2.5 mg 1 tab Daily 7. ondansetron HCl - 8 mg 1 tab every 8 hours as needed for nausea 8. senna - 8.6 mg 2 tab twice a day Medications Last Reconciled by Evita Viveros MA on 09/06/2024 ALLERGIES: No Known Drug Allergies REVIEW OF SYSTEMS: A complete 14-point review of systems was performed and is negative except as noted in interval history. PHYSICAL EXAMINATION: VITAL SIGNS: Temperature?98.2, B/P?98/69, Oxygen?Saturation?96% Weight?164?lbs (Change?since?09/03/24:?-3.2?lbs) PAIN: 0 - No pain ECOG Performance Status: None EYE: Conjunctivae is white MOUTH: Oral cavity is moist . Tenderness elicited over the thoracic vertebrae as well as on lumbar vertebrae on deep palpation LABORATORY DATA: I have personally reviewed and interpreted each of the patient?s relevant lab tests, abnormal findings are below: Date 08/23/24 09/03/24 ??WHITE?BLOOD?COUNT?(Thou/mm3) 2.8?L 3.7?L ??RED?BLOOD?COUNT?(Miln/mm3) 2.90?L 3.12?L ??HEMOGLOBIN?(gm/dl) 9.4?L 10.1?L ??HEMATOCRIT?(%) 28.9?L 29.7?L ??PLATELET?COUNT?(Thou/mm3) 178 196 ??NEUTROPHILS?%,?AUTO?(%) 28?L 50 ??LYMPH?%,?AUTO?(%) 38 29 ??NEUTROPHILS,?AUTO?(Thou/mm3) 0.8?L 1.8 ??GLUCOSE,RANDOM?(mg/dL) 187?H 105 ??BLOOD?UREA?NITROGEN?(mg/dL) 17 18 ??CREATININE?(mg/dL) 1.30 1.30 ??SODIUM?(mmol/L) 140 143 ??POTASSIUM?(mmol/L) 3.5 4.0 ??CHLORIDE?(mmol/L) 108?H 108?H ??CrCl?(CandG)?(ml/min) 61.14 61.58 ??AST/SGOT?(Unit/L) 21 19 ??ALT/SGPT?(Unit/L) 19 15 ??ALKALINE?PHOSPHATASE?(Unit/L) 116 103 ??BILIRUBIN,?TOTAL?(mg/dL) 0.6 0.6 ??PROTEIN?TOTAL?(gm/dl) 6.8 6.7 ??ALBUMIN,?SERUM?(gm/dl) 4.0 4.1 ??GLOBULIN?(gm/dl) 2.8 2.6 ??ALBUMIN/GLOBULIN?RATIO 1.4 1.6 ??CALCIUM,?SERUM?(mg/dL) 9.0 8.6 ??CALCIUM?SERUM?(CORRECTED)?(mg/dL) 9.0 8.6 ASSESSMENT/PLAN: Small cell lung cancer extensive stage-recurrence of the cancer Patient with 45-year pack smoking history Patient initially had limited stage disease S/p chemoradiation 12/30/2022 - 02/10/2023: Mr. Maya received 5400 cGy radiation therapy along with cisplatin and etoposide. Mr. Maya had 4 cycles of cisplatin and etoposide (01/01/2023 - 03/17/2023) PET/CT scan (07/22/2023 showed improvement p Patient had MRI brain and was negative Patient did not receive any prophylactic radiation Patient started having back pain in August 2023 CT scan of the abdomen showed extensive hepatic metastasis as well as pericaval lymphadenopathy (11/28/2023). MRI of the lumbar spine showed osseous metastasis as documented above (12/01/2023) Mr. Maya has mild tingling and numbness most likely secondary to cisplatin. He was treated with carboplatin and irinotecan from December 2023 till further progression 04/28/2024 started lubrinectidin and Mr. Maya's last scan is showing great response to treatment. CT scan on 08/27/2024 and 08/21/2024 shows great response to disease in the viscera but patient have osteoblastic lesions which according to the read have worsened. Plan - Continue current chemotherapy regimen Refer to radiation oncology for targeted therapy over the spine Refer to tertiary level care for second opinion ORDERS: Order # Description RETURN TO CLINIC: 3 to 4 weeks after the radiation and If the results BILLING AND COMPLIANCE: I reviewed external records from providers outside my specialty as summarized above. I spent a total of 50 minutes on this patient?s care on the day of their visit excluding time spent related to any billed procedures. This time includes time spent with the patient as well as time spent documenting in the medical record, reviewing patients records and tests, obtaining history, placing orders, communicating with other healthcare professionals, counseling the patient, family or caregiver, and/or care coordination for the diagnoses above. Electronically Signed by: {Object.Sanct_ID*PnP.NameFL@M}, {Object.Sanct_ID*PnP.Suffix@U} D: {Object.Sanct_Date} T: {Object.Sanct_Time} CC: PCP: Guy Ramon Referring: Guy Ramon This document was completed utilizing speech recognition software. Grammatical errors, random word insertions, pronoun errors, and incomplete sentences are an occasional consequence of this system due to software limitations, ambient noise, and hardware issues. Any formal questions or concerns about the content, text or information contained within the body of this dictation should be directly addressed to the provider for clarification.
[2024-09-07 11:09] LABS: Basophils % (Auto) 1 % (0-2.5); Eosinophils # (Auto) 0.1 Thou/mm3 (0.0-0.5); Eosinophils % (Auto) 1 % (0-10); Hematocrit 31.3 % (41.0-53.0); Hemoglobin 10.2 g/dL (13.5-16.0); Immature Granulocytes % (Auto) 1 % (0-0); Immature Granulocytes Auto 0.02 Thou/mm3 (0.00-0.00); Lymphocytes % (Auto) 25 % (10-50); Mean Corpuscular HGB Conc 32.6 g/dl (31.0-37.0); Mean Corpuscular Hemoglobin 32.5 pg (25.0-35.0); Mean Corpuscular Volume 100 fL (80-100); Monocytes # (Auto) 0.7 Thou/mm3 (0.0-0.8); Monocytes % (Auto) 17 % (0-12); Neutrophils # (Auto) 2.2 Thou/mm3 (1.8-7.7); Neutrophils % (Auto) 55 % (37-80); Nucleated Red Blood Cell % 0 /100 WBC (0); Platelet Count 195 Thou/mm3 (140-440); Red Blood Count 3.14 Miln/mm3 (4.50-5.90); White Blood Count 3.9 Thou/mm3 (3.8-10.6)
[2024-09-07 11:30] LABS: Alanine Aminotransferase 17 U/L (10-49); Albumin, Serum 4.1 gm/dL (3.4-4.8); Albumin/Globulin Ratio 1.6 (1.2-2.2); Alkaline Phosphatase 103 U/L (46-116); Anion Gap 10 (7-16); Aspartate Amino Transferase 21 U/L (0-34); BUN/Creatinine Ratio 19 Ratio (12-20); Bilirubin,Total 0.5 mg/dL (0.3-1.2); Blood Urea Nitrogen 25 mg/dL (9-23); Calcium 8.8 mg/dL (8.3-10.6); Calcium (Corrected) 8.8 mg/dL (8.5-10.1); Carbon Dioxide 23.5 mMol/L (20.0-31.0); Chloride 110 mMol/L (98-107); Creatinine (Component) 1.3 mg/dL (0.6-1.3); Globulin 2.6 gm/dL (2.3-3.5); Glucose 158 mg/dL (74-106); Osmolality,Calculated 292 (275-295); Potassium 3.7 mMol/L (3.4-5.1); Sodium 143 mMol/L (136-145); Total Protein 6.7 gm/dL (5.7-8.2); eGFR > 60 See Note
[2024-09-07 12:04] LABS: Carcinoembryonic Antigen 4.6 ng/mL (0.0-5.0)
[2024-09-27 14:42] LABS: Basophils % (Auto) 1 % (0-2.5); Eosinophils % (Auto) 1 % (0-10); Hematocrit 28.6 % (41.0-53.0); Hemoglobin 9.3 g/dL (13.5-16.0); Immature Granulocytes % (Auto) 1 % (0-0); Immature Granulocytes Auto 0.02 Thou/mm3 (0.00-0.00); Lymphocytes % (Auto) 31 % (10-50); Mean Corpuscular HGB Conc 32.5 g/dl (31.0-37.0); Mean Corpuscular Hemoglobin 31.3 pg (25.0-35.0); Mean Corpuscular Volume 96 fL (80-100); Monocytes % (Auto) 33 % (0-12); Neutrophils # (Auto) 1.1 Thou/mm3 (1.8-7.7); Neutrophils % (Auto) 34 % (37-80); Nucleated Red Blood Cell % 0 /100 WBC (0); Platelet Count 205 Thou/mm3 (140-440); Red Blood Count 2.97 Miln/mm3 (4.50-5.90); White Blood Count 3.2 Thou/mm3 (3.8-10.6)
[2024-09-27 15:05] LABS: Carcinoembryonic Antigen 5.7 ng/mL (0.0-5.0)
[2024-09-27 15:06] LABS: Alanine Aminotransferase 20 U/L (10-49); Albumin, Serum 4.1 gm/dL (3.4-4.8); Albumin/Globulin Ratio 1.6 (1.2-2.2); Alkaline Phosphatase 118 U/L (46-116); Anion Gap 14 (7-16); Aspartate Amino Transferase 22 U/L (0-34); BUN/Creatinine Ratio 12 Ratio (12-20); Bilirubin,Total 0.5 mg/dL (0.3-1.2); Blood Urea Nitrogen 16 mg/dL (9-23); Calcium 9.4 mg/dL (8.3-10.6); Calcium (Corrected) 9.4 mg/dL (8.5-10.1); Carbon Dioxide 21.3 mMol/L (20.0-31.0); Chloride 106 mMol/L (98-107); Creatinine (Component) 1.3 mg/dL (0.6-1.3); Globulin 2.6 gm/dL (2.3-3.5); Glucose 156 mg/dL (74-106); Osmolality,Calculated 285 (275-295); Potassium 3.7 mMol/L (3.4-5.1); Sodium 141 mMol/L (136-145); Total Protein 6.7 gm/dL (5.7-8.2); eGFR > 60 See Note
[2024-10-04 10:08] LABS: Basophils # (Auto) 0.1 Thou/mm3 (0.0-0.2); Basophils % (Auto) 2 % (0-2.5); Eosinophils % (Auto) 1 % (0-10); Hematocrit 29.1 % (41.0-53.0); Hemoglobin 9.7 g/dL (13.5-16.0); Immature Granulocytes % (Auto) 1 % (0-0); Immature Granulocytes Auto 0.02 Thou/mm3 (0.00-0.00); Lymphocytes # (Auto) 0.7 Thou/mm3 (1.0-4.8); Lymphocytes % (Auto) 19 % (10-50); Mean Corpuscular HGB Conc 33.3 g/dl (31.0-37.0); Mean Corpuscular Hemoglobin 31.7 pg (25.0-35.0); Mean Corpuscular Volume 95 fL (80-100); Monocytes # (Auto) 0.6 Thou/mm3 (0.0-0.8); Monocytes % (Auto) 19 % (0-12); Neutrophils # (Auto) 2.1 Thou/mm3 (1.8-7.7); Neutrophils % (Auto) 60 % (37-80); Nucleated Red Blood Cell % 0 /100 WBC (0); Platelet Count 214 Thou/mm3 (140-440); RDW Standard Deviation 62.6 fL (35.1-43.9); Red Blood Count 3.06 Miln/mm3 (4.50-5.90); White Blood Count 3.4 Thou/mm3 (3.8-10.6)
[2024-10-04 10:28] LABS: Alanine Aminotransferase 17 U/L (10-49); Albumin, Serum 4.3 gm/dL (3.4-4.8); Albumin/Globulin Ratio 1.7 (1.2-2.2); Alkaline Phosphatase 106 U/L (46-116); Anion Gap 9 (7-16); Aspartate Amino Transferase 15 U/L (0-34); BUN/Creatinine Ratio 15 Ratio (12-20); Bilirubin,Total 0.6 mg/dL (0.3-1.2); Blood Urea Nitrogen 18 mg/dL (9-23); Calcium 9.9 mg/dL (8.3-10.6); Calcium (Corrected) 9.9 mg/dL (8.5-10.1); Carbon Dioxide 22.9 mMol/L (20.0-31.0); Chloride 106 mMol/L (98-107); Creatinine (Component) 1.2 mg/dL (0.6-1.3); Globulin 2.5 gm/dL (2.3-3.5); Glucose 158 mg/dL (74-106); Osmolality,Calculated 280 (275-295); Potassium 3.9 mMol/L (3.4-5.1); Sodium 138 mMol/L (136-145); Total Protein 6.8 gm/dL (5.7-8.2); eGFR > 60 See Note
== END 2024-10-04 23:59 | disposition home or self-care (01) ==
LOC: SCTC 08:56
PROVIDERS: PCP Family Medicine; Referring Provider Family Medicine; Visit Provider Internal Medicine Hematology & Oncology
DX: Z51.11 Encounter for antineoplastic chemotherapy (principal); Z51.0 Encounter for antineoplastic radiation therapy; C34.12 Malignant neoplasm of upper lobe, left bronchus or lung; C79.51 Secondary malignant neoplasm of bone; C78.7 Secondary malignant neoplasm of liver and intrahepatic bile duct; G89.3 Neoplasm related pain (acute) (chronic); R20.2 Paresthesia of skin; R20.0 Anesthesia of skin; Z87.891 Personal history of nicotine dependence
CPT/HCPCS: 36591; 77014; 77290; 77300; 77301; 77334; 77336; 77338; 77385; 77470; 80053; 82378; 85025; 96367; 96413; 99212; 99213; A4216; J1100; J1642; J2405; J7040; J7050; J9223; G0463

== ENCOUNTER 2024-11-02 07:56 | Outpatient (RCR) | payer MEDICAID, SELFPAY ==
[2024-10-18 12:33] LABS: Basophils # (Auto) 0.0 Thou/mm3 (0.0-0.2); Basophils % (Auto) 0 % (0-2.5); Eosinophils # (Auto) 0.0 Thou/mm3 (0.0-0.5); Eosinophils % (Auto) 4 % (0-10); Hematocrit 26.1 % (41.0-53.0); Hemoglobin 9.0 g/dL (13.5-16.0); Immature Granulocytes Auto 0.00 Thou/mm3 (0.00-0.00); Lymphocytes # (Auto) 0.3 Thou/mm3 (1.0-4.8); Lymphocytes % (Auto) 45 % (10-50); Mean Corpuscular HGB Conc 34.5 g/dl (31.0-37.0); Mean Corpuscular Hemoglobin 31.3 pg (25.0-35.0); Mean Corpuscular Volume 91 fL (80-100); Monocytes # (Auto) 0.2 Thou/mm3 (0.0-0.8); Monocytes % (Auto) 34 % (0-12); Neutrophils # (Auto) 0.1 Thou/mm3 (1.8-7.7); Neutrophils % (Auto) 17 % (37-80); Nucleated Red Blood Cell # 0.00 Thou/mm3 (0.00-0.00); Nucleated Red Blood Cell % 0 /100 WBC (0); RDW Standard Deviation 54.8 fL (35.1-43.9); Red Blood Count 2.88 Miln/mm3 (4.50-5.90)
[2024-10-18 12:44] LABS: Alanine Aminotransferase 34 U/L (10-49); Albumin, Serum 4.2 gm/dL (3.4-4.8); Albumin/Globulin Ratio 1.6 (1.2-2.2); Alkaline Phosphatase 128 U/L (46-116); Anion Gap 12 (7-16); Aspartate Amino Transferase 24 U/L (0-34); BUN/Creatinine Ratio 17 Ratio (12-20); Bilirubin,Total 0.7 mg/dL (0.3-1.2); Blood Urea Nitrogen 20 mg/dL (9-23); Calcium 9.3 mg/dL (8.3-10.6); Calcium (Corrected) 9.3 mg/dL (8.5-10.1); Carbon Dioxide 23.1 mMol/L (20.0-31.0); Chloride 109 mMol/L (98-107); Creatinine (Component) 1.2 mg/dL (0.6-1.3); Globulin 2.6 gm/dL (2.3-3.5); Glucose 162 mg/dL (74-106); Osmolality,Calculated 293 (275-295); Potassium 3.9 mMol/L (3.4-5.1); Sodium 144 mMol/L (136-145); Total Protein 6.8 gm/dL (5.7-8.2); eGFR > 60 See Note
[2024-10-18 12:48] LABS: Platelet Count 39 Thou/mm3 (140-440); White Blood Count 0.7 Thou/mm3 (3.8-10.6)
[2024-10-18 14:22] LABS: Slide Review Platelets confirmed
[2024-10-25 12:30] LABS: Basophils # (Auto) 0.0 Thou/mm3 (0.0-0.2); Basophils % (Auto) 1 % (0-2.5); Eosinophils # (Auto) 0.0 Thou/mm3 (0.0-0.5); Eosinophils % (Auto) 1 % (0-10); Hematocrit 26.2 % (41.0-53.0); Hemoglobin 8.9 g/dL (13.5-16.0); Immature Granulocytes Auto 0.02 Thou/mm3 (0.00-0.00); Lymphocytes # (Auto) 0.6 Thou/mm3 (1.0-4.8); Lymphocytes % (Auto) 25 % (10-50); Mean Corpuscular HGB Conc 34.0 g/dl (31.0-37.0); Mean Corpuscular Hemoglobin 31.6 pg (25.0-35.0); Mean Corpuscular Volume 93 fL (80-100); Monocytes # (Auto) 0.7 Thou/mm3 (0.0-0.8); Monocytes % (Auto) 29 % (0-12); Neutrophils # (Auto) 1.1 Thou/mm3 (1.8-7.7); Neutrophils % (Auto) 44 % (37-80); Nucleated Red Blood Cell # 0.00 Thou/mm3 (0.00-0.00); Nucleated Red Blood Cell % 0 /100 WBC (0); Platelet Count 149 Thou/mm3 (140-440); RDW Standard Deviation 61.6 fL (35.1-43.9); Red Blood Count 2.82 Miln/mm3 (4.50-5.90)
[2024-10-25 12:47] LABS: White Blood Count 2.5 Thou/mm3 (3.8-10.6)
[2024-10-25 12:49] LABS: Alanine Aminotransferase 23 U/L (10-49); Albumin, Serum 4.1 gm/dL (3.4-4.8); Albumin/Globulin Ratio 1.6 (1.2-2.2); Alkaline Phosphatase 137 U/L (46-116); Anion Gap 10 (7-16); Aspartate Amino Transferase 24 U/L (0-34); BUN/Creatinine Ratio 14 Ratio (12-20); Bilirubin,Total 0.5 mg/dL (0.3-1.2); Blood Urea Nitrogen 19 mg/dL (9-23); Calcium 9.1 mg/dL (8.3-10.6); Calcium (Corrected) 9.1 mg/dL (8.5-10.1); Carbon Dioxide 22.7 mMol/L (20.0-31.0); Chloride 108 mMol/L (98-107); Creatinine (Component) 1.4 mg/dL (0.6-1.3); Globulin 2.6 gm/dL (2.3-3.5); Glucose 200 mg/dL (74-106); Osmolality,Calculated 289 (275-295); Potassium 3.6 mMol/L (3.4-5.1); Sodium 141 mMol/L (136-145); Total Protein 6.7 gm/dL (5.7-8.2); eGFR 56 See Note
--- NOTE | 2024-11-01 06:49 | CTCFLWUP_ITS ---
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 His cancer history includes initial good response to chemotherapy, progression on carboplatin and irinotecan (2022), and current third-line therapy with Lubridactin. Recent Ramin test results showed an increase from June levels, suggesting disease progression. CT and PET scans were ordered. Plan includes continuing Lubridactin pending scan results, follow- up on November 22, considering [facility] trial for immunotherapy, and possible transfer to [place] for Terlatumab treatment. 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 DATE OF DIAGNOSIS: 10/31/2022 as a limited stage small cell lung cancer July 2023 as advanced stage small cell lung cancer STAGE/TNM: Advanced stage small cell lung cancer on second line therapy TREATMENT HISTORY: Care?Plan Start?Date Cycle Day Intent CISplatin?75?mg/m*2,?Etoposide?with?XRT?for?limited?small?cell?lung?ca 01/01/2023 1 21 Curative?(primary) carboplatin?and?irinotecan 12/15/2023 1 28 Palliative zometa?q?30?days,?q?90?days?for?bone?mets 12/15/2023 1 90 Palliative Lurbinectedin 04/28/2024 1 21 Palliative HISTORY OF PRESENT ILLNESS: Elle Maya is a 64-year-old CARLOS speaking Other male following oncology history. September 2022: Patient was diagnosed with community-acquired pneumonia in [place]. Treated with antibiotics. 10/31/2022: Mr. Maya had a bronchoscopy done in [place] due to persistent pneumonia. 11/07/2022: 11/19/2022: MRI of the brain with and without contrast 12/05/2022: PET/CT scan 01/01/2023: Patient had first cycle of cisplatin and 3 days of etoposide. 12/30/2022 - 02/10/2023: Mr. Maya had 5400 cGy radiation along with chemotherapy 01/22/2023: Mr. Maya had second cycle of cisplatin and 1 day of etoposide. 02/12/2023: Mr. Maya had third cycle of cisplatin 03/17/2023: Mr. Maya had fourth cycle of cisplatin 04/18/2023: PET/CT scan? 07/22/2023: PET/CT scan? 11/28/2023: CT scan of the abdomen and pelvis with IV contrast 12/01/2023: MRI of the lumbar spine without contrast MRI brain 02/03/2024 shows no metastatic disease in the brain Ct chest 03/10/2024 Laboratory, Imaging, and Diagnostic Test Results - Most recent imaging scan (date not specified): - Lung tumor: 10mm (reduced from 13mm) - Liver nodule: 6mm (reduced from 11mm) - Adrenal gland tumor: 11mm (reduced from 20mm) - No new cancer detected 08/27/2024 CT scan IMPRESSION: Significant decrease in pneumonia left base compared with July 07, 2024 Small left pleural effusion Left adrenal nodule measures 12 mm compared to [address] abdomen March 10, 2024 Left lateral periaortic lymph node measures 8 mm compared to 10 mm on March 10, 2024 Left lateral periaortic lymph node measures 2 mm compared to 4 mm on March 10, 2024 No new abdominal or pelvic lymphadenopathy compared with March 10, 2024 Widespread osteoblastic metastatic disease, with progression of osteoblastic metastatic disease involving T9, T8 and both iliac bones compared with March 10, 2024 08/21/2024Widespread osseous metastatic disease Severe pathologic compression fracture T12, retropulsion of the posterior superior margin of this vertebral body 6 mm No epidural tumor compression of the conus medullaris or cauda equina OTHER MEDICAL HISTORY/CONDITIONS: Small cell lung cancer - recently diagnosed Denies FAMILY HISTORY: Father:?2006?LUNG?CANCER,??2009 Sibling:?SISTER?BREAST?CA Cancer History:?PATERNAL UNCLE, PROSTATE CA SOCIAL HISTORY: Occupational?History:?RETIRED Education?Level:?College Graduate, 2 year degree Marital?Status:? Tobacco?Pack?per?Day:?1 Tobacco?Use?Years:?45 Tobacco?Use:?STOPPED?3?MO?AGO ETOH?Use:?SOCIAL?DRINKER Drug?Note:?Denies Social?History?Note:?Lives?with?son MEDICATIONS: 1. dexamethasone - 4 mg 2 tab daily for 2 days after each chemotherapy 2. morphine - 30 mg 1 Capsule three times a day 3. ondansetron HCl - 8 mg 1 tab every 8 hours as needed for nausea Medications Last Reconciled by Makenna Silva MA on 10/28/2024 ALLERGIES: No Known Drug Allergies REVIEW OF SYSTEMS: A complete 14-point review of systems was performed and is negative except as noted in interval history. PHYSICAL EXAMINATION: VITAL SIGNS: Temperature?98.2, B/P?80/37, Oxygen?Saturation?98% PAIN: 0 - No pain EYE: Conjunctivae is white MOUTH: Oral cavity is moist . Tenderness elicited over the thoracic vertebrae as well as on lumbar vertebrae on deep palpation LABORATORY DATA: I have personally reviewed and interpreted each of the patient?s relevant lab tests, abnormal findings are below: Date 10/18/24 10/25/24 ??WHITE?BLOOD?COUNT?(Thou/mm3) 0.7?LL 2.5?L ??RED?BLOOD?COUNT?(Miln/mm3) 2.88?L 2.82?L ??HEMOGLOBIN?(gm/dl) 9.0?L 8.9?L ??HEMATOCRIT?(%) 26.1?L 26.2?L ??PLATELET?COUNT?(Thou/mm3) 39?L 149 ??NEUTROPHILS?%,?AUTO?(%) 17?L 44 ??LYMPH?%,?AUTO?(%) 45 25 ??NEUTROPHILS,?AUTO?(Thou/mm3) 0.1?L 1.1?L ??GLUCOSE,RANDOM?(mg/dL) 162?H 200?H ??BLOOD?UREA?NITROGEN?(mg/dL) 20 19 ??CREATININE?(mg/dL) 1.20 1.40?H ??SODIUM?(mmol/L) 144 141 ??POTASSIUM?(mmol/L) 3.9 3.6 ??CHLORIDE?(mmol/L) 109?H 108?H ??CrCl?(CandG)?(ml/min) 64.96 56.36 ??AST/SGOT?(Unit/L) 24 24 ??ALT/SGPT?(Unit/L) 34 23 ??ALKALINE?PHOSPHATASE?(Unit/L) 128?H 137?H ??BILIRUBIN,?TOTAL?(mg/dL) 0.7 0.5 ??PROTEIN?TOTAL?(gm/dl) 6.8 6.7 ??ALBUMIN,?SERUM?(gm/dl) 4.2 4.1 ??GLOBULIN?(gm/dl) 2.6 2.6 ??ALBUMIN/GLOBULIN?RATIO 1.6 1.6 ??CALCIUM,?SERUM?(mg/dL) 9.3 9.1 ??CALCIUM?SERUM?(CORRECTED)?(mg/dL) 9.3 9.1 ASSESSMENT/PLAN: Small cell lung cancer extensive stage-recurrence of the cancer Patient with 45-year pack smoking history Patient initially had limited stage disease S/p chemoradiation 12/30/2022 - 02/10/2023: Mr. Maya received 5400 cGy radiation therapy along with cisplatin and etoposide. Mr. Maya had 4 cycles of cisplatin and etoposide (01/01/2023 - 03/17/2023) PET/CT scan (07/22/2023 showed improvement p Patient had MRI brain and was negative Patient did not receive any prophylactic radiation Patient started having back pain in August 2023 CT scan of the abdomen showed extensive hepatic metastasis as well as pericaval lymphadenopathy (11/28/2023). MRI of the lumbar spine showed osseous metastasis as documented above (12/01/2023) Mr. Maya has mild tingling and numbness most likely secondary to cisplatin. He was treated with carboplatin and irinotecan from December 2023 till further progression 04/28/2024 started lubrinectidin and Mr. Maya's last scan is showing great response to treatment. CT scan on 08/27/2024 and 08/21/2024 shows great response to disease in the viscera but patient have osteoblastic lesions which according to the read have worsened. Izzy testing is now showing increase in CT DNA Waiting for PET CT scan on November 22 which would likely show progression Plan will be to put patient on combination chemoimmunotherapy as patient never received that combination or to start on tarlatamab at [place] ORDERS: Order # Description [id number] Follow Up Appointment [id number] MRI + T Spine + L Spine + With W/O Contrast [id number] PET/CT of Skull to mid-thigh for Restaging [id number] MD Follow Up 3 Months RETURN TO CLINIC: I reviewed the diagnosis, prognosis, and recommended treatment/procedure options with the patient (and/or their legal claims service representative), including the potential benefits, risks, side effects and alternative therapies. We also discussed the option of no treatment and the possibility of clinical trial participation, if applicable. All questions were addressed, and they demonstrated understanding. They provided informed consent to proceed with the proposed plan of care. BILLING AND COMPLIANCE: I reviewed external records from providers outside my specialty as summarized above. I spent a total of 50 minutes on this patient?s care on the day of their visit excluding time spent related to any billed procedures. This time includes time spent with the patient as well as time spent documenting in the medical record, reviewing patients records and tests, obtaining history, placing orders, communicating with other healthcare professionals, counseling the patient, family or caregiver, and/or care coordination for the diagnoses above. Electronically Signed by: Rizwan Rutledge MD T: 6:47 AM CC: PCP: Guy Ramon Referring: Guy Ramon This document was completed utilizing speech recognition software. Grammatical errors, random word insertions, pronoun errors, and incomplete sentences are an occasional consequence of this system due to software limitations, ambient noise, and hardware issues. Any formal questions or concerns about the content, text or information contained within the body of this dictation should be directly addressed to the provider for clarification.
[2024-11-01 08:17] LABS: Basophils # (Auto) 0.0 Thou/mm3 (0.0-0.2); Basophils % (Auto) 1 % (0-2.5); Eosinophils # (Auto) 0.0 Thou/mm3 (0.0-0.5); Eosinophils % (Auto) 1 % (0-10); Hematocrit 28.6 % (41.0-53.0); Hemoglobin 9.3 g/dL (13.5-16.0); Immature Granulocytes Auto 0.02 Thou/mm3 (0.00-0.00); Lymphocytes # (Auto) 0.8 Thou/mm3 (1.0-4.8); Lymphocytes % (Auto) 20 % (10-50); Mean Corpuscular HGB Conc 32.5 g/dl (31.0-37.0); Mean Corpuscular Hemoglobin 31.3 pg (25.0-35.0); Mean Corpuscular Volume 96 fL (80-100); Monocytes # (Auto) 0.8 Thou/mm3 (0.0-0.8); Monocytes % (Auto) 20 % (0-12); Neutrophils # (Auto) 2.4 Thou/mm3 (1.8-7.7); Neutrophils % (Auto) 58 % (37-80); Nucleated Red Blood Cell # 0.00 Thou/mm3 (0.00-0.00); Nucleated Red Blood Cell % 0 /100 WBC (0); Platelet Count 192 Thou/mm3 (140-440); RDW Standard Deviation 66.8 fL (35.1-43.9); Red Blood Count 2.97 Miln/mm3 (4.50-5.90); White Blood Count 4.2 Thou/mm3 (3.8-10.6)
[2024-11-01 08:33] LABS: Alanine Aminotransferase 19 U/L (10-49); Albumin, Serum 4.3 gm/dL (3.4-4.8); Albumin/Globulin Ratio 1.6 (1.2-2.2); Alkaline Phosphatase 137 U/L (46-116); Anion Gap 10 (7-16); Aspartate Amino Transferase < 10 U/L (0-34); BUN/Creatinine Ratio 13 Ratio (12-20); Bilirubin,Total 0.4 mg/dL (0.3-1.2); Blood Urea Nitrogen 20 mg/dL (9-23); Calcium 9.9 mg/dL (8.3-10.6); Calcium (Corrected) 9.9 mg/dL (8.5-10.1); Carbon Dioxide 23.7 mMol/L (20.0-31.0); Chloride 108 mMol/L (98-107); Creatinine (Component) 1.6 mg/dL (0.6-1.3); Globulin 2.7 gm/dL (2.3-3.5); Glucose 174 mg/dL (74-106); Osmolality,Calculated 289 (275-295); Potassium 3.8 mMol/L (3.4-5.1); Sodium 142 mMol/L (136-145); Total Protein 7.0 gm/dL (5.7-8.2); eGFR 48 See Note
== END 2024-11-04 23:59 | disposition home or self-care (01) ==
LOC: SCTC 07:56
PROVIDERS: PCP Family Medicine; Referring Provider Family Medicine; Visit Provider Internal Medicine Hematology & Oncology
DX: Z51.11 Encounter for antineoplastic chemotherapy (principal); C34.12 Malignant neoplasm of upper lobe, left bronchus or lung; C79.51 Secondary malignant neoplasm of bone; C78.7 Secondary malignant neoplasm of liver and intrahepatic bile duct
CPT/HCPCS: 36591; 77336; 77385; 80053; 85025; 96360; 96367; 96413; 99212; A4216; J1100; J1642; J2405; J7030; J7040; J7050; J9223; G0463

== ENCOUNTER 2024-11-22 07:57 | Outpatient (RCR) | payer MEDICAID, SELFPAY ==
[2024-11-19 11:39] LABS: Basophils # (Auto) 0.0 Thou/mm3 (0.0-0.2); Basophils % (Auto) 0 % (0-2.5); Eosinophils # (Auto) 0.0 Thou/mm3 (0.0-0.5); Eosinophils % (Auto) 1 % (0-10); Hematocrit 24.5 % (41.0-53.0); Immature Granulocytes Auto 0.02 Thou/mm3 (0.00-0.00); Lymphocytes # (Auto) 0.8 Thou/mm3 (1.0-4.8); Lymphocytes % (Auto) 31 % (10-50); Mean Corpuscular HGB Conc 32.2 g/dl (31.0-37.0); Mean Corpuscular Hemoglobin 30.7 pg (25.0-35.0); Mean Corpuscular Volume 95 fL (80-100); Monocytes # (Auto) 0.9 Thou/mm3 (0.0-0.8); Monocytes % (Auto) 35 % (0-12); Neutrophils # (Auto) 0.8 Thou/mm3 (1.8-7.7); Neutrophils % (Auto) 32 % (37-80); Nucleated Red Blood Cell # 0.03 Thou/mm3 (0.00-0.00); Nucleated Red Blood Cell % 1 /100 WBC (0); Platelet Count 149 Thou/mm3 (140-440); RDW Standard Deviation 67.8 fL (35.1-43.9); Red Blood Count 2.57 Miln/mm3 (4.50-5.90); White Blood Count 2.4 Thou/mm3 (3.8-10.6)
[2024-11-19 11:48] LABS: Hemoglobin 7.9 g/dL (13.5-16.0)
[2024-11-19 11:59] LABS: Alanine Aminotransferase 28 U/L (10-49); Albumin, Serum 4.2 gm/dL (3.4-4.8); Albumin/Globulin Ratio 1.6 (1.2-2.2); Alkaline Phosphatase 152 U/L (46-116); Anion Gap 13 (7-16); Aspartate Amino Transferase 33 U/L (0-34); BUN/Creatinine Ratio 14 Ratio (12-20); Bilirubin,Total 0.6 mg/dL (0.3-1.2); Blood Urea Nitrogen 18 mg/dL (9-23); Calcium 9.7 mg/dL (8.3-10.6); Calcium (Corrected) 9.7 mg/dL (8.5-10.1); Carbon Dioxide 21.3 mMol/L (20.0-31.0); Chloride 105 mMol/L (98-107); Creatinine (Component) 1.3 mg/dL (0.6-1.3); Globulin 2.6 gm/dL (2.3-3.5); Glucose 124 mg/dL (74-106); Osmolality,Calculated 280 (275-295); Potassium 3.6 mMol/L (3.4-5.1); Sodium 139 mMol/L (136-145); Total Protein 6.8 gm/dL (5.7-8.2); eGFR > 60 See Note
[2024-11-22 08:39] LABS: Basophils # (Auto) 0.0 Thou/mm3 (0.0-0.2); Basophils % (Auto) 0 % (0-2.5); Eosinophils # (Auto) 0.0 Thou/mm3 (0.0-0.5); Eosinophils % (Auto) 1 % (0-10); Hematocrit 22.5 % (41.0-53.0); Immature Granulocytes Auto 0.02 Thou/mm3 (0.00-0.00); Lymphocytes # (Auto) 0.7 Thou/mm3 (1.0-4.8); Lymphocytes % (Auto) 19 % (10-50); Mean Corpuscular HGB Conc 32.4 g/dl (31.0-37.0); Mean Corpuscular Hemoglobin 30.9 pg (25.0-35.0); Mean Corpuscular Volume 95 fL (80-100); Monocytes # (Auto) 0.9 Thou/mm3 (0.0-0.8); Monocytes % (Auto) 24 % (0-12); Neutrophils # (Auto) 2.0 Thou/mm3 (1.8-7.7); Neutrophils % (Auto) 56 % (37-80); Nucleated Red Blood Cell # 0.00 Thou/mm3 (0.00-0.00); Nucleated Red Blood Cell % 0 /100 WBC (0); Platelet Count 161 Thou/mm3 (140-440); RDW Standard Deviation 71.2 fL (35.1-43.9); Red Blood Count 2.36 Miln/mm3 (4.50-5.90); White Blood Count 3.6 Thou/mm3 (3.8-10.6)
[2024-11-22 08:46] LABS: Hemoglobin 7.3 g/dL (13.5-16.0)
== END 2024-12-05 23:59 | disposition home or self-care (01) ==
LOC: SCTC 07:57
PROVIDERS: PCP Family Medicine; Referring Provider Family Medicine; Visit Provider Internal Medicine Hematology & Oncology
DX: Z51.11 Encounter for antineoplastic chemotherapy (principal); C34.90 Malignant neoplasm of unspecified part of unspecified bronchus or lung; C79.51 Secondary malignant neoplasm of bone; Z87.891 Personal history of nicotine dependence; Z92.3 Personal history of irradiation
CPT/HCPCS: 36591; 80053; 85025; 96367; 96413; A4216; J1100; J1642; J2405; J3489; J7050; J9223

== ENCOUNTER 2024-11-25 10:06 | Inpatient (IN) | payer MEDICAID, SELFPAY ==
[2024-11-25] VITALS (36 sets, daily range): BP systolic 82–136; BP diastolic 50–74; PULSE 94–131; RESP 16–34; TEMP 36.6–38.7; O2SAT 92–100; BMI 26.6; BMI 28.0
--- NOTE | 2024-11-25 11:08 | PD.EDFEVER ---
ED Fever RME/HPI General Chief Complaint: Fever Stated Complaint: FEVER AND WEAKNESS ON CHEMO Time Seen by Provider: 11/25/24 10:33 Arrival date/time: 11/25/24 10:06 Related Data Previous Rx's ?Medication ?Instructions ?Recorded levofloxacin 750 mg tablet 750 mg PO QDAY #7 tabs 07/14/24 Allergies Allergy/AdvReac Type Severity Reaction Status Date / Time No Known Allergies Allergy Verified 11/25/24 10:10 Course Vital Signs Vital signs: Vital Signs Temperature 101.7 F H 11/25/24 10:32 Pulse Rate 127 H 11/25/24 10:32 Respiratory Rate 18 11/25/24 10:32 Blood Pressure 87/60 L 11/25/24 10:32 Pulse Oximetry (%) 97 11/25/24 10:32 Oxygen Delivery Method Room Air 11/25/24 10:32 Discharge Plan Prescriptions/Referrals Prescriptions/Med Rec: No Action levofloxacin 750 mg tablet 750 mg PO QDAY Qty: 7 0RF Patient/Caregiver Discharge Instructions Print Language: Mongolian
--- NOTE | 2024-11-25 11:10 | EKG_ITS ---
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
--- NOTE | 2024-11-25 11:10 | EDNOTE_ITS ---
ED Weakness RME/HPI General Chief complaint: Fever Stated complaint: FEVER AND WEAKNESS ON CHEMO Time Seen by Provider: 11/25/24 10:33 Arrival date/time: 11/25/24 10:06 Limitations: no limitations RME / HPI RME / HPI Narrative: DR. LUTZ MAIN ED EVALUATION: 64-year-old male with past medical history of lung cancer on intermittent chemotherapy for the past three years, last session on Friday, presents to the Emergency Department accompanied by his son, who serves as an [employer] tube cutter. The patient reports nausea, vomiting, and generalized weakness since his most recent chemotherapy session. He also endorses subjective fever but denies dysuria or other urinary symptoms. He denies any history of renal or liver disease. He quit smoking a few years ago but has a significant history of chronic and heavy tobacco use in the past. Primary oncologist is Dr. Rutledge. Related Data Previous Rx's ?Medication ?Instructions ?Recorded gabapentin 100 mg capsule 100 mg PO BID 30 days #60 ca ps 12/14/24 midodrine 10 mg tablet 10 mg PO TID 30 days #90 tab s 12/14/24 mirtazapine 7.5 mg tablet 7.5 mg PO HS 30 days #30 tab s 12/14/24 Allergies Allergy/AdvReac Type Severity Reaction Status Date / Time No Known Allergies Allergy Verified 12/22/24 17:16 Review of Systems Review of Systems Systems Reviewed: All systems reviewed, normal except as documented Past Medical History Past Medical History OTHER HISTORY: Positive Cancer Family History FAMILY HISTORY: Positive Family Cancer Social History SMOKING STATUS: Former smoker SUBSTANCE USE: does not use ALCOHOL: Never ED Exam General Limitations: Present no limitations General appearance: Present alert, in no apparent distress and other (looks chronically ill, acute decompensation) Head Head exam: Present atraumatic, normocephalic and normal inspection Eye Eye exam: Present normal appearance, PERRL and EOMI ENT ENT exam: Present normal exam, normal oropharynx and mucous membranes dry Neck Neck exam: Present normal inspection, full ROM and trachea midline Chest Chest inspection: Present normal inspection (Portacath in the right chest area) and symmetric chest wall rise Respiratory Respiratory exam: Present normal lung sounds bilaterally Cardiovascular Cardiovascular exam: Present normal rhythm, tachycardia and normal heart sounds Abdominal Exam Abdominal exam: Present soft; Absent distention, tenderness, guarding, rebound or rigidity Extremities Exam Extremities exam: Present normal inspection and full ROM Back Exam Back exam: Present normal inspection and full ROM Neurological Exam Neurological exam: Present alert, oriented X3 and CN II-XII intact Psychiatric Psychiatric exam: Present normal affect and normal mood Skin Skin exam: Present warm, dry, intact and normal color Course Quality Measures none Orders Category Date Time Status Admit to Inpatient Status Routine Admission 11/25/24 13:26 Active Patient Condition Routine Admission 11/25/24 13:25 Ordered Bedside Blood Glucose NOW Care 11/25/24 11:10 Completed Insert IV NOW Care 11/25/24 11:10 Completed Strict Intake and Output Routine Care 11/25/24 11:10 Ordered XR chest 1V SEPSIS PROTOCOL Stat Exams 11/25/24 11:10 Completed Blood Culture (Lab) Stat Lab 11/25/24 11:05 Completed CBC Stat Lab 11/25/24 11:05 Completed Comprehensive Metabolic Panel Stat Lab 11/25/24 11:05 Completed Lactate (Lactic Acid) Stat Lab 11/25/24 11:05 Completed Partial Thromboplastin Time Stat Lab 11/25/24 11:05 Completed Procalcitonin Stat Lab 11/25/24 11:05 Completed Prothrombin Time with INR Stat Lab 11/25/24 11:05 Completed Urinalysis Stat Lab 11/25/24 14:07 Completed Urine Culture Stat Lab 11/25/24 14:07 Completed Acetaminophen Supp [Tylenol Supp] Med 11/25/24 13:25 Discontinued 650 mg DE Q4HR PRN Acetaminophen Tab [Tylenol Tab] Med 11/25/24 13:25 Discontinued 650 mg PO Q4HR PRN Acetaminophen Tab [Tylenol Tab] Med 11/25/24 11:36 Discontinued 650 mg PO X1 ONE Milk Of Magnesia Susp [Mom Susp] Med 11/25/24 13:25 Discontinued 30 ml PO QDAY PRN Norepinephrine/D5W 8mg/250ml [Levophed in D5W 8mg/250ml Med 11/25/24 13:14 Discontinued ] 8 mg in 250 ml IV 0.05 mcg/kg/min Piper/Tazo Inj [Zosyn Inj] 4.5 gm Med 11/25/24 11:11 Discontinued Sodium Chloride 0.9% (Pop) [NS 0.9% mini bag] 100 ml IV X1 Ringers Lactated 1000 ml [Lactated Ringers] 1,000 ml Med 11/25/24 11:11 Discontinued IV 999 mls/hr Ringers Lactated 1000 ml [Lactated Ringers] 1,000 ml Med 11/25/24 11:11 Discontinued IV 999 mls/hr Vancomycin Pharmacy to Dose Med 11/25/24 11:11 Discontinued 1 each IV QDAY PRN Vancomycin/Water 1Gm Ivpb 200 ml Med 11/25/24 11:15 Discontinued IV X1 Code Status Routine Oth 11/25/24 13:25 Completed EKG (RT) Stat RT 11/25/24 11:10 Draft Oxygen Delivery PRN RT 11/25/24 13:25 Completed Vital Signs Vital signs: Vital Signs Temperature 101.7 F H 11/25/24 10:32 Pulse Rate 127 H 11/25/24 10:32 Respiratory Rate 18 11/25/24 10:32 Blood Pressure 87/60 L 11/25/24 10:32 Pulse Oximetry (%) 97 11/25/24 10:32 Oxygen Delivery Method Room Air 11/25/24 10:32 Weakness MDM Narrative MDM Narrative:: I, Opal Sneed am scribing for and in the presence of Dr. Lutz. 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 Vital signs and exam as listed. Concern for neutropenic fever, sepsis, urinary tract infection, pneumonia, among others. Patient is immunocompromise and is actively receiving chemotherapy and last dose was earlier this week. This patient in room, obtain IV access, ordered sepsis fluid resuscitation, broad-spectrum antibiotics, chest x-ray, offer medication for symptom relief. Patient denies any headache, does not have any focal neurodeficits, less likely meningitis. Labs with evidence of pancytopenia. No significant electrolyte abnormality, bicarb 18.2 anion gap normal creatinine 2.0 calcium 8 AST 506, ALT 555 alk phos 175 T. bili normal procalcitonin 10.7 Chest x-ray with evidence of pneumonia. EKG performed November 25 at 11:20 AM with sinus tachycardia, heart rate 115, normal intervals, nonspecific T wave changes, not a cardiac alert At 1304 hours, patient became hypertensive 80/49, requested a second liter of fluid we have also started Levophed. Sepsis reassessment, patient GCS 15, delayed capillary refill, abdomen soft nondistended not tender Will discuss admission with the ICU. 13:[address] Newell ICU, accepted for admission Patient data External records reviewed:: [facility] previous records Clinical information provided by:: patient and family (son, who serves as an [employer] tube cutter) Social determinants that could affect healthcare access:: other (specify) (tobacco smoker) Patient has the following chronic illnesses:: Lung cancer on intermittent chemotherapy for the past three years, last session on Friday. Primary oncologist is Dr. Rutledge. He quit smoking a few years ago but has a significant history of chronic and heavy tobacco use in the past. He denies any history of renal or liver disease. How is presenting disease/condition affected by chronic disease/condition?: exacerbated by Evaluation data The following diagnostics were reviewed and interpreted by me:: lab results and radiology exam(s) Lab and/or radiology exams considered but not ordered:: none Interpretation Summary: My interpretation: EKG performed at 1120 hours, sinus tachycardia, rate 115, normal intervals, non specific ST-T wave changes, no cardiac alert Procedure(s): XR chest 1V SEPSIS PROTOCOL Accession Number(s): [id number] cc: Hakeem Ordaz MD; NO PRIMARY/FAMILY,PHYSICIAN; Makenna Lutz MD~ Examination: AP chest single view Technique : AP portable upright chest single view Date and time: 11/25/2024 1139 hours Comparison July 14, 2024 INDICATIONS: Sepsis alert FINDINGS: Early left perihilar left basilar pneumonia Mild elevation left hemidiaphragm. Normal heart size Right internal jugular Port-A-Cath tip right atrium IMPRESSION: Early left perihilar left basilar pneumonia Dictated By: Hakeem Ordaz MD Medications / Prescriptions Medications or Prescriptions considered but not ordered:: none Medication administrations:: Medication Administration History Discontinued Medications Acetaminophen (Acetaminophen 325 Mg Tablet) 650 mg PO X1 ONE Stop: 11/25/24 11:37 Last Admin: 11/25/24 11:48 Dose: 650 mg Documented By: RICH Acetaminophen (Acetaminophen 325 Mg Tablet) 650 mg PO Q4HR PRN PRN Reason: PAIN SCALE 1-3 (mild Stop: 12/25/24 13:24 Acetaminophen (Acetaminophen Supp 650 Mg Supp) 650 mg DE Q4HR PRN PRN Reason: PAIN SCALE 1-3 (mild Stop: 12/25/24 13:24 Acetaminophen (Acetaminophen 325 Mg Tablet) 650 mg PO Q4HR PRN PRN Reason: Mild Pain 1-3 Or Fever > 100.4 Stop: 12/25/24 13:24 Last Admin: 12/02/24 09:24 Dose: 650 mg Documented By: Admin: 12/02/24 00:00 Dose: 650 mg Documented By: Admin: 12/01/24 09:20 Dose: 650 mg Documented By: Admin: 11/30/24 20:09 Dose: 650 mg Documented By: RICH(2) Admin: 11/29/24 23:56 Dose: 650 mg Documented By: ELVA Acetaminophen (Acetaminophen 325 Mg Tablet) 650 mg PO X1 ONE Stop: 11/30/24 21:45 Last Admin: 11/30/24 21:56 Dose: 650 mg Documented By: JOSE RAUL Acetaminophen (Acetaminophen 325 Mg Tablet) 650 mg PO X1 ONE Stop: 12/01/24 00:24 Last Admin: 12/01/24 00:31 Dose: 650 mg Documented By: JOSE RAUL Acetaminophen (Acetaminophen 325 Mg Tablet) 650 mg PO Q4HR PRN PRN Reason: Mild Pain 1-3 Or Fever > 100.4 Stop: 12/25/24 13:24 Last Admin: 12/04/24 11:52 Dose: 650 mg Documented By: Admin: 12/04/24 05:10 Dose: 650 mg Documented By: Admin: 12/03/24 21:22 Dose: 650 mg Documented By: YESSENIA Acetaminophen (Acetaminophen 500 Mg Tablet) 500 mg PO Q6HR PRN PRN Reason: FEVER > 101 Stop: 01/04/25 09:02 Last Admin: 12/08/24 21:30 Dose: 500 mg Documented By: Admin: 12/08/24 00:57 Dose: 500 mg Documented By: Admin: 12/05/24 15:31 Dose: 500 mg Documented By: KULWINDER Acetaminophen (Acetaminophen 325 Mg Tablet) 650 mg PO Q6HR PRN PRN Reason: Fever > 99.9 Stop: 01/04/25 09:02 Hydrocodone Bitart/Acetaminophen (Hydrocodone/Apap 5/325 Tablet) 1 tab PO Q6HR PRN PRN Reason: Pain 4-7 or breakthrough pain Stop: 12/05/24 10:41 Albuterol/Ipratropium (Albuterol/Ipratropium (Duoneb) Rt Maryann 3 Ml Nebu) 3 ml INH Q6HRRT PRN PRN Reason: wheezing Stop: 01/02/25 18:59 Last Admin: 12/03/24 19:49 Dose: 3 ml Documented By: REYNA Albuterol/Ipratropium (Albuterol/Ipratropium (Duoneb) Rt Maryann 3 Ml Nebu) 3 ml INH Q6HRRT ARI Stop: 01/03/25 12:59 Last Admin: 12/05/24 06:46 Dose: 3 ml Documented By: Admin: 12/05/24 01:11 Dose: 3 ml Documented By: Admin: 12/04/24 18:41 Dose: 3 ml Documented By: Admin: 12/04/24 12:41 Dose: 3 ml Documented By: MILA Albuterol/Ipratropium (Albuterol/Ipratropium (Duoneb) Rt Maryann 3 Ml Nebu) 3 ml INH X1 ONE Stop: 12/05/24 10:39 Last Admin: 12/05/24 10:47 Dose: 3 ml Documented By: JESSICA Azithromycin (Azithromycin 250 Mg Tablet) 500 mg PO QDAY ARI; Protocol Stop: 12/06/24 09:01 Last Admin: 12/04/24 09:38 Dose: 500 mg Documented By: BECKY Benzonatate (Benzonatate 100 Mg Capsule) 100 mg PO Q8HR PRN; Protocol PRN Reason: COUGH Stop: 12/30/24 10:45 Last Admin: 12/08/24 00:58 Dose: 100 mg Documented By: Admin: 11/30/24 14:50 Dose: 100 mg Documented By: RICH(2) Bisacodyl (Bisacodyl 5 Mg Tabec) 5 mg PO QDAY ARI; Protocol Stop: 12/25/24 18:29 Last Admin: 11/25/24 19:53 Dose: Not Given Documented By: DILLAN Non-Admin Reason: Cancelled by Provider Bisacodyl (Bisacodyl 5 Mg Tabec) 5 mg PO QDAY PRN; Protocol PRN Reason: CONSTIPATION Stop: 12/26/24 08:59 Calcium Carbonate (Calcium Carbonate 600 Mg Tablet) 600 mg PO QDAY ARI Stop: 12/25/24 19:59 Last Admin: 12/14/24 08:42 Dose: 600 mg Documented By: Admin: 12/13/24 08:28 Dose: 600 mg Documented By: Admin: 12/12/24 08:53 Dose: 600 mg Documented By: Admin: 12/11/24 09:21 Dose: 600 mg Documented By: Admin: 12/10/24 10:13 Dose: 600 mg Documented By: Admin: 12/09/24 07:59 Dose: 600 mg Documented By: Admin: 12/08/24 09:32 Dose: 600 mg Documented By: Admin: 12/07/24 09:50 Dose: 600 mg Documented By: Admin: 12/06/24 09:47 Dose: 600 mg Documented By: Admin: 12/05/24 08:57 Dose: 600 mg Documented By: Admin: 12/04/24 09:38 Dose: 600 mg Documented By: Admin: 12/03/24 09:14 Dose: 600 mg Documented By: Admin: 12/02/24 09:23 Dose: 600 mg Documented By: Admin: 12/01/24 09:20 Dose: 600 mg Documented By: Admin: 11/30/24 10:14 Dose: 600 mg Documented By: RICH(2) Admin: 11/29/24 08:13 Dose: 600 mg Documented By: Admin: 11/28/24 08:22 Dose: 600 mg Documented By: Admin: 11/27/24 08:52 Dose: 600 mg Documented By: Admin: 11/26/24 08:19 Dose: 600 mg Documented By: YASMIN(2) Admin: 11/25/24 20:15 Dose: 600 mg Documented By: DILLAN Dronabinol (Dronabinol 2.5 Mg Capsule) 2.5 mg PO BIDAC ARI Stop: 12/29/24 09:34 Last Admin: 12/04/24 07:23 Dose: 2.5 mg Documented By: Admin: 12/03/24 17:17 Dose: 2.5 mg Documented By: Admin: 12/03/24 07:49 Dose: 2.5 mg Documented By: Admin: 12/02/24 17:52 Dose: 2.5 mg Documented By: Admin: 12/02/24 09:23 Dose: 2.5 mg Documented By: Admin: 12/01/24 17:44 Dose: 2.5 mg Documented By: Admin: 12/01/24 09:20 Dose: 2.5 mg Documented By: Admin: 11/30/24 16:51 Dose: 2.5 mg Documented By: Admin: 11/30/24 10:14 Dose: 2.5 mg Documented By: RICH(2) Admin: 11/29/24 16:36 Dose: 2.5 mg Documented By: Admin: 11/29/24 10:13 Dose: 2.5 mg Documented By: AT Filgrastim (Filgrastim Inj (Zarxio) 300 Mcg/0.5 Ml Syringe) 300 mcg SC X1 ONE Stop: 11/25/24 17:31 Last Admin: 11/25/24 18:14 Dose: 300 mcg Documented By: NEMO Filgrastim (Filgrastim Inj (Zarxio) 300 Mcg/0.5 Ml Syringe) 300 mcg SC X1 ONE Stop: 11/28/24 07:16 Last Admin: 11/28/24 08:22 Dose: 300 mcg Documented By: ROBYN Filgrastim (Filgrastim Inj (Neupogen) 300 Mcg/Ml Vial) 300 mcg SC X1 ONE Stop: 11/29/24 07:01 Last Admin: 11/29/24 07:53 Dose: 300 mcg Documented By: AT Filgrastim (Filgrastim Inj (Zarxio) 300 Mcg/0.5 Ml Syringe) 300 mcg SC X1 ONE Stop: 11/30/24 16:16 Last Admin: 11/30/24 16:51 Dose: 300 mcg Documented By: SAMANTHA Filgrastim (Filgrastim Inj (Zarxio) 300 Mcg/0.5 Ml Syringe) 300 mcg SC QDAY ARI Stop: 01/02/25 08:59 Last Admin: 12/07/24 08:26 Dose: 300 mcg Documented By: MGJohn Admin: 12/06/24 09:48 Dose: 300 mcg Documented By: Admin: 12/05/24 08:56 Dose: 300 mcg Documented By: Admin: 12/04/24 09:58 Dose: 300 mcg Documented By: Admin: 12/03/24 09:14 Dose: 300 mcg Documented By: Admin: 12/02/24 09:59 Dose: 300 mcg Documented By: Admin: 12/01/24 09:20 Dose: 300 mcg Documented By: Furosemide (Furosemide Inj 10 Mg/Ml 4ml Vial) 40 mg IVP X1 ONE Stop: 12/05/24 10:39 Last Admin: 12/05/24 11:20 Dose: 40 mg Documented By: BECKY Furosemide (Furosemide Inj 10 Mg/Ml 4ml Vial) 40 mg IVP X1 ONE Stop: 12/05/24 17:19 Last Admin: 12/05/24 17:30 Dose: 40 mg Documented By: BECKY Furosemide (Furosemide Inj 10 Mg/Ml 4ml Vial) 40 mg IVP X1 ONE Stop: 12/06/24 10:39 Last Admin: 12/06/24 11:56 Dose: 40 mg Documented By: ZAIRE Furosemide (Furosemide Inj 10 Mg/Ml 4ml Vial) 40 mg IVP X1 ONE Stop: 12/06/24 21:01 Last Admin: 12/06/24 21:26 Dose: 40 mg Documented By: ROBLES Furosemide (Furosemide Inj 10 Mg/Ml Vial 2 Ml) 20 mg IVP X1 ONE Stop: 12/06/24 13:42 Last Admin: 12/06/24 14:51 Dose: 20 mg Documented By: ZAIRE Furosemide (Furosemide Inj 10 Mg/Ml 4ml Vial) 40 mg IVP BIDD ARI Stop: 01/06/25 09:59 Last Admin: 12/09/24 06:50 Dose: Not Given Documented By: DIANELYS Non-Admin Reason: Discontinued Furosemide (Furosemide Inj 10 Mg/Ml 4ml Vial) 40 mg IVP X1 ONE Stop: 12/07/24 11:40 Last Admin: 12/07/24 12:00 Dose: 40 mg Documented By: YASMIN Furosemide (Furosemide Inj 10 Mg/Ml 4ml Vial) 80 mg IVP BIDD ARI Stop: 01/06/25 17:59 Last Admin: 12/09/24 17:34 Dose: 80 mg Documented By: Admin: 12/09/24 05:27 Dose: 80 mg Documented By: Admin: 12/08/24 18:10 Dose: 80 mg Documented By: Admin: 12/08/24 06:37 Dose: 80 mg Documented By: Admin: 12/07/24 18:16 Dose: 80 mg Documented By: MGD Gabapentin (Gabapentin 100 Mg Capsule) 100 mg PO BID ARI Stop: 01/11/25 10:59 Last Admin: 12/14/24 08:42 Dose: 100 mg Documented By: Admin: 12/13/24 21:52 Dose: 100 mg Documented By: Admin: 12/13/24 08:28 Dose: 100 mg Documented By: Admin: 12/12/24 20:40 Dose: 100 mg Documented By: [email or web address] Admin: 12/12/24 11:33 Dose: 100 mg Documented By: MGJohn Heparin Sodium (Beef Lung) (Heparin Sod Lock Syr 100 Unit/Ml) Confirm Administered Dose 500 unit .ROUTE .STK-MED ONE Stop: 12/10/24 13:05 Last Admin: 12/10/24 13:36 Dose: Not Given Documented By: PAUL Non-Admin Reason: Override Medication Heparin Sodium (Beef Lung) (Heparin Sod Lock Syr 100 Unit/Ml) 500 unit [place] [address] ONE Stop: 12/10/24 13:24 Last Admin: 12/10/24 13:32 Dose: 500 unit Documented By: PAUL Comments: to sterile field Heparin Sodium (Porcine) (Heparin Sod Inj 5000 Unit/Ml Vial) 5,000 unit SC Q8HR [facility] Stop: 12/09/24 21:59 Last Admin: 11/27/24 14:13 Dose: Not Given Documented By: ROBYN Non-Admin Reason: hold per MD order Admin: 11/27/24 06:15 Dose: 5,000 unit Documented By: KELLY Co-signed By: Admin: 11/26/24 21:19 Dose: 5,000 unit Documented By: NIKKIE Co-signed By: Admin: 11/26/24 13:24 Dose: 5,000 unit Documented By: YASMIN(2) Co-signed By: ROBERT Admin: 11/26/24 05:21 Dose: 5,000 unit Documented By: NIKKIE Co-signed By: KELLY Comments: Okay to give per MD BOX. Admin: 11/25/24 21:09 Dose: 5,000 unit Documented By: DILLAN Co-signed By: HARDY Lactated Ringer's (Lactated Ringers) 1,000 mls @ 999 mls/hr IV .Q1H1M ONE Stop: 11/25/24 12:11 Last Infusion: 11/25/24 13:00 Dose: Infused Documented By: Admin: 11/25/24 11:24 Dose: 999 mls/hr Documented By: VL Lactated Ringer's (Lactated Ringers) 1,000 mls @ 999 mls/hr IV .Q1H1M ONE Stop: 11/25/24 12:11 Last Infusion: 11/25/24 14:05 Dose: Infused Documented By: Admin: 11/25/24 13:04 Dose: 999 mls/hr Documented By: ED Piperacillin Sod/Tazobactam (Sod 4.5 gm/ Sodium Chloride) 100 mls @ 200 mls/hr IV X1 ONE Stop: 11/25/24 11:40 Last Infusion: 11/25/24 13:05 Dose: Infused Documented By: Admin: 11/25/24 11:24 Dose: 200 mls/hr Documented By: VL Vancomycin HCl (Vancomycin/Water 1gm Ivpb) 200 mls @ 120 mls/hr IV X1 ONE Stop: 11/25/24 12:54 Last Infusion: 11/25/24 15:52 Dose: Infused Documented By: Admin: 11/25/24 14:11 Dose: 120 mls/hr Documented By: VL Norepinephrine/Dextrose (Levophed In D5w 8mg/250ml) 8 mg in 250 mls @ 6.804 mls/hr IV .Q24H PRN; Protocol PRN Reason: PER PROTOCOL Stop: 12/25/24 13:13 Last Titration: 11/28/24 16:00 Dose: 0 mcg/kg/min, 0 mls/hr Documented By: Titration: 11/28/24 15:00 Dose: 0 mcg/kg/min, 0 mls/hr Documented By: Titration: 11/28/24 14:46 Dose: 0.05 mcg/kg/min, 6.804 mls/hr Documented By: Titration: 11/28/24 14:00 Dose: 0.07 mcg/kg/min, 9.525 mls/hr Documented By: Titration: 11/28/24 13:00 Dose: 0.07 mcg/kg/min, 9.525 mls/hr Documented By: Titration: 11/28/24 12:00 Dose: 0.09 mcg/kg/min, 12.247 mls/hr Documented By: Titration: 11/28/24 11:00 Dose: 0.11 mcg/kg/min, 14.969 mls/hr Documented By: Titration: 11/28/24 10:00 Dose: 0.13 mcg/kg/min, 17.69 mls/hr Documented By: Titration: 11/28/24 09:00 Dose: 0.13 mcg/kg/min, 17.69 mls/hr Documented By: Titration: 11/28/24 08:00 Dose: 0.15 mcg/kg/min, 20.412 mls/hr Documented By: Titration: 11/28/24 07:00 Dose: 0.15 mcg/kg/min, 20.412 mls/hr Documented By: Titration: 11/28/24 06:00 Dose: 0.15 mcg/kg/min, 20.412 mls/hr Documented By: Titration: 11/28/24 05:00 Dose: 0.15 mcg/kg/min, 20.412 mls/hr Documented By: Titration: 11/28/24 04:00 Dose: 0.15 mcg/kg/min, 20.412 mls/hr Documented By: Admin: 11/28/24 03:00 Dose: 0.15 mcg/kg/min, 20.412 mls/hr Documented By: Titration: 11/28/24 03:00 Dose: Infused Documented By: Titration: 11/28/24 02:45 Dose: Infused Documented By: Titration: 11/28/24 02:30 Dose: Infused Documented By: Titration: 11/28/24 02:00 Dose: Infused Documented By: Titration: 11/28/24 01:00 Dose: 0.13 mcg/kg/min, 17.69 mls/hr Documented By: Titration: 11/28/24 00:00 Dose: 0.13 mcg/kg/min, 17.69 mls/hr Documented By: Titration: 11/27/24 23:00 Dose: 0.13 mcg/kg/min, 17.69 mls/hr Documented By: Titration: 11/27/24 22:00 Dose: 0.13 mcg/kg/min, 17.69 mls/hr Documented By: Titration: 11/27/24 21:00 Dose: 0.13 mcg/kg/min, 17.69 mls/hr Documented By: Titration: 11/27/24 20:00 Dose: 0.13 mcg/kg/min, 17.69 mls/hr Documented By: Titration: 11/27/24 19:00 Dose: 0.13 mcg/kg/min, 17.69 mls/hr Documented By: Titration: 11/27/24 18:00 Dose: 0.13 mcg/kg/min, 17.69 mls/hr Documented By: Titration: 11/27/24 17:00 Dose: 0.13 mcg/kg/min, 17.69 mls/hr Documented By: Titration: 11/27/24 16:00 Dose: 0.15 mcg/kg/min, 20.412 mls/hr Documented By: Titration: 11/27/24 15:00 Dose: 0.13 mcg/kg/min, 17.69 mls/hr Documented By: Titration: 11/27/24 14:00 Dose: 0.11 mcg/kg/min, 14.969 mls/hr Documented By: Titration: 11/27/24 13:00 Dose: 0.09 mcg/kg/min, 12.247 mls/hr Documented By: Titration: 11/27/24 12:00 Dose: 0.11 mcg/kg/min, 14.969 mls/hr Documented By: Admin: 11/27/24 11:14 Dose: 0.13 mcg/kg/min, 17.69 mls/hr Documented By: Titration: 11/27/24 11:14 Dose: Infused Documented By: Titration: 11/27/24 11:00 Dose: 0.13 mcg/kg/min, 17.69 mls/hr Documented By: Titration: 11/27/24 10:00 Dose: 0.15 mcg/kg/min, 20.412 mls/hr Documented By: Titration: 11/27/24 09:30 Dose: 0.17 mcg/kg/min, 23.133 mls/hr Documented By: Titration: 11/27/24 09:00 Dose: 0.19 mcg/kg/min, 25.855 mls/hr Documented By: Titration: 11/27/24 08:30 Dose: 0.19 mcg/kg/min, 25.855 mls/hr Documented By: Titration: 11/27/24 08:15 Dose: 0.21 mcg/kg/min, 28.576 mls/hr Documented By: Titration: 11/27/24 08:00 Dose: 0.23 mcg/kg/min, 31.298 mls/hr Documented By: Titration: 11/27/24 07:30 Dose: 0.25 mcg/kg/min, 34.02 mls/hr Documented By: Titration: 11/27/24 07:00 Dose: 0.27 mcg/kg/min, 36.741 mls/hr Documented By: Titration: 11/27/24 06:00 Dose: 0.27 mcg/kg/min, 36.741 mls/hr Documented By: Titration: 11/27/24 05:00 Dose: 0.27 mcg/kg/min, 36.741 mls/hr Documented By: Titration: 11/27/24 04:00 Dose: 0.27 mcg/kg/min, 36.741 mls/hr Documented By: Admin: 11/27/24 03:19 Dose: 0.27 mcg/kg/min, 36.741 mls/hr Documented By: Titration: 11/27/24 03:19 Dose: Infused Documented By: Titration: 11/27/24 03:00 Dose: 0.27 mcg/kg/min, 36.741 mls/hr Documented By: Titration: 11/27/24 02:00 Dose: 0.27 mcg/kg/min, 36.741 mls/hr Documented By: Titration: 11/27/24 01:45 Dose: 0.27 mcg/kg/min, 36.741 mls/hr Documented By: Titration: 11/27/24 01:35 Dose: 0.25 mcg/kg/min, 34.02 mls/hr Documented By: Titration: 11/27/24 01:15 Dose: 0.23 mcg/kg/min, 31.298 mls/hr Documented By: Titration: 11/27/24 01:00 Dose: 0.21 mcg/kg/min, 28.576 mls/hr Documented By: Titration: 11/27/24 00:00 Dose: 0.21 mcg/kg/min, 28.576 mls/hr Documented By: Titration: 11/26/24 23:00 Dose: 0.21 mcg/kg/min, 28.576 mls/hr Documented By: Titration: 11/26/24 22:00 Dose: 0.21 mcg/kg/min, 28.576 mls/hr Documented By: Titration: 11/26/24 21:00 Dose: 0.21 mcg/kg/min, 28.576 mls/hr Documented By: Titration: 11/26/24 20:00 Dose: 0.21 mcg/kg/min, 28.576 mls/hr Documented By: Titration: 11/26/24 19:00 Dose: 0.21 mcg/kg/min, 28.576 mls/hr Documented By: Admin: 11/26/24 18:57 Dose: 0.21 mcg/kg/min, 28.576 mls/hr Documented By: MGD(2) Titration: 11/26/24 18:57 Dose: Infused Documented By: MGD(2) Titration: 11/26/24 18:00 Dose: 0.21 mcg/kg/min, 28.576 mls/hr Documented By: MGD(2) Titration: 11/26/24 17:00 Dose: 0.21 mcg/kg/min, 28.576 mls/hr Documented By: MGD(2) Titration: 11/26/24 16:00 Dose: 0.21 mcg/kg/min, 28.576 mls/hr Documented By: MGD(2) Titration: 11/26/24 15:30 Dose: 0.19 mcg/kg/min, 25.855 mls/hr Documented By: MGD(2) Titration: 11/26/24 15:15 Dose: 0.17 mcg/kg/min, 23.133 mls/hr Documented By: MGD(2) Titration: 11/26/24 15:00 Dose: 0.15 mcg/kg/min, 20.412 mls/hr Documented By: MGD(2) Titration: 11/26/24 14:00 Dose: 0.13 mcg/kg/min, 17.69 mls/hr Documented By: MGD(2) Titration: 11/26/24 13:30 Dose: 0.15 mcg/kg/min, 20.412 mls/hr Documented By: MGD(2) Titration: 11/26/24 13:00 Dose: 0.17 mcg/kg/min, 23.133 mls/hr Documented By: MGD(2) Titration: 11/26/24 12:50 Dose: 0.15 mcg/kg/min, 20.412 mls/hr Documented By: MGD(2) Titration: 11/26/24 12:45 Dose: 0.13 mcg/kg/min, 17.69 mls/hr Documented By: MGD(2) Titration: 11/26/24 12:00 Dose: 0.11 mcg/kg/min, 14.969 mls/hr Documented By: MGD(2) Titration: 11/26/24 11:45 Dose: 0.09 mcg/kg/min, 12.247 mls/hr Documented By: MGD(2) Titration: 11/26/24 11:00 Dose: 0.07 mcg/kg/min, 9.525 mls/hr Documented By: MGD(2) Titration: 11/26/24 10:30 Dose: 0.07 mcg/kg/min, 9.525 mls/hr Documented By: MGD(2) Titration: 11/26/24 10:00 Dose: 0.09 mcg/kg/min, 12.247 mls/hr Documented By: MGD(2) Titration: 11/26/24 09:30 Dose: 0.11 mcg/kg/min, 14.969 mls/hr Documented By: MGD(2) Titration: 11/26/24 09:00 Dose: 0.09 mcg/kg/min, 12.247 mls/hr Documented By: MGD(2) Titration: 11/26/24 08:45 Dose: 0.07 mcg/kg/min, 9.525 mls/hr Documented By: MGD(2) Titration: 11/26/24 08:30 Dose: 0.09 mcg/kg/min, 12.247 mls/hr Documented By: MGD(2) Admin: 11/26/24 08:00 Dose: 0.11 mcg/kg/min, 14.969 mls/hr Documented By: MGD(2) Titration: 11/26/24 08:00 Dose: Infused Documented By: MGD(2) Titration: 11/26/24 07:00 Dose: 0.09 mcg/kg/min, 12.247 mls/hr Documented By: MGD(2) Titration: 11/26/24 06:00 Dose: 0.07 mcg/kg/min, 9.525 mls/hr Documented By: Titration: 11/26/24 05:00 Dose: 0.07 mcg/kg/min, 9.525 mls/hr Documented By: Titration: 11/26/24 04:00 Dose: 0.07 mcg/kg/min, 9.525 mls/hr Documented By: Titration: 11/26/24 03:00 Dose: 0.07 mcg/kg/min, 9.525 mls/hr Documented By: Titration: 11/26/24 02:00 Dose: 0.07 mcg/kg/min, 9.525 mls/hr Documented By: Titration: 11/26/24 01:00 Dose: 0.07 mcg/kg/min, 9.525 mls/hr Documented By: Titration: 11/26/24 00:00 Dose: 0.07 mcg/kg/min, 9.525 mls/hr Documented By: Titration: 11/25/24 23:00 Dose: 0.07 mcg/kg/min, 9.525 mls/hr Documented By: Titration: 11/25/24 22:00 Dose: 0.07 mcg/kg/min, 9.525 mls/hr Documented By: Titration: 11/25/24 21:40 Dose: 0.07 mcg/kg/min, 9.525 mls/hr Documented By: Titration: 11/25/24 21:09 Dose: 0.05 mcg/kg/min, 6.804 mls/hr Documented By: Titration: 11/25/24 21:00 Dose: 0.05 mcg/kg/min, 6.804 mls/hr Documented By: Titration: 11/25/24 20:41 Dose: 0.05 mcg/kg/min, 6.804 mls/hr Documented By: Titration: 11/25/24 20:15 Dose: 0.07 mcg/kg/min, 9.525 mls/hr Documented By: Titration: 11/25/24 20:00 Dose: 0.09 mcg/kg/min, 12.247 mls/hr Documented By: Titration: 11/25/24 19:30 Dose: 0.09 mcg/kg/min, 12.247 mls/hr Documented By: Titration: 11/25/24 19:00 Dose: 0.11 mcg/kg/min, 14.969 mls/hr Documented By: Titration: 11/25/24 18:16 Dose: 0.13 mcg/kg/min, 17.69 mls/hr Documented By: Titration: 11/25/24 14:52 Dose: 0.15 mcg/kg/min, 20.412 mls/hr Documented By: Titration: 11/25/24 14:11 Dose: 0.15 mcg/kg/min, 20.412 mls/hr Documented By: Titration: 11/25/24 14:04 Dose: 0.13 mcg/kg/min, 17.69 mls/hr Documented By: Titration: 11/25/24 13:37 Dose: 0.13 mcg/kg/min, 17.69 mls/hr Documented By: Titration: 11/25/24 13:32 Dose: 0.11 mcg/kg/min, 14.969 mls/hr Documented By: Titration: 11/25/24 13:27 Dose: 0.09 mcg/kg/min, 12.247 mls/hr Documented By: Titration: 11/25/24 13:22 Dose: 0.07 mcg/kg/min, 9.525 mls/hr Documented By: Admin: 11/25/24 13:17 Dose: 0.05 mcg/kg/min, 6.804 mls/hr Documented By: ED Piperacillin/Tazobactam/Dextrose (Zosyn) 3.375 gm in 50 mls @ 12.5 mls/hr IV Q8HR ARI Stop: 12/02/24 21:59 Last Admin: 12/01/24 05:19 Dose: 12.5 mls/hr Documented By: Infusion: 12/01/24 01:36 Dose: Infused Documented By: Admin: 11/30/24 21:36 Dose: 12.5 mls/hr Documented By: Infusion: 11/30/24 18:50 Dose: Infused Documented By: Admin: 11/30/24 14:50 Dose: 12.5 mls/hr Documented By: VL(2) Infusion: 11/30/24 09:09 Dose: Infused Documented By: VL(2) Admin: 11/30/24 05:09 Dose: 12.5 mls/hr Documented By: Infusion: 11/30/24 01:08 Dose: Infused Documented By: Admin: 11/29/24 21:08 Dose: 12.5 mls/hr Documented By: Infusion: 11/29/24 18:12 Dose: Infused Documented By: Admin: 11/29/24 14:12 Dose: 12.5 mls/hr Documented By: Infusion: 11/29/24 09:38 Dose: Infused Documented By: Admin: 11/29/24 05:38 Dose: 12.5 mls/hr Documented By: Infusion: 11/29/24 01:50 Dose: Infused Documented By: Admin: 11/28/24 21:50 Dose: 12.5 mls/hr Documented By: Infusion: 11/28/24 18:12 Dose: Infused Documented By: Admin: 11/28/24 14:12 Dose: 12.5 mls/hr Documented By: Infusion: 11/28/24 09:37 Dose: Infused Documented By: Admin: 11/28/24 05:37 Dose: 12.5 mls/hr Documented By: Infusion: 11/28/24 02:22 Dose: Infused Documented By: Admin: 11/27/24 22:22 Dose: 12.5 mls/hr Documented By: Infusion: 11/27/24 18:03 Dose: Infused Documented By: Admin: 11/27/24 14:03 Dose: 12.5 mls/hr Documented By: Infusion: 11/27/24 10:15 Dose: Infused Documented By: Admin: 11/27/24 06:15 Dose: 12.5 mls/hr Documented By: Infusion: 11/27/24 01:16 Dose: Infused Documented By: Admin: 11/26/24 21:16 Dose: 12.5 mls/hr Documented By: Infusion: 11/26/24 17:25 Dose: Infused Documented By: Admin: 11/26/24 13:25 Dose: 12.5 mls/hr Documented By: MGD(2) Infusion: 11/26/24 09:21 Dose: Infused Documented By: D(2) Admin: 11/26/24 05:21 Dose: 12.5 mls/hr Documented By: Infusion: 11/26/24 01:09 Dose: Infused Documented By: Admin: 11/25/24 21:09 Dose: 12.5 mls/hr Documented By: DILLAN Vasopressin/Sodium Chloride (Vasostrict/Ns Ivpb) 20 unit in 100 mls @ 9 mls/hr IV .Q11H7M PRN; Protocol PRN Reason: PER PROTOCOL Stop: 12/25/24 14:36 Vancomycin/Sodium Chloride (Vancomycin/Ns 500 Mg Ivpb) 100 mls @ 120 mls/hr IV X1 ONE Stop: 11/26/24 10:49 Last Admin: 11/26/24 10:05 Dose: 120 mls/hr Documented By: MGD(2) Lactated Ringer's (Lactated Ringers) 1,000 mls @ 999 mls/hr IV .Q1H1M ONE Stop: 11/26/24 11:03 Last Admin: 11/26/24 10:04 Dose: 999 mls/hr Documented By: YASMIN(2) Vancomycin/Sodium Chloride (Vancomycin/Ns 750 Mg Ivpb) 750 mg in 150 mls @ 120 mls/hr IV X1 ONE Stop: 11/27/24 11:14 Last Admin: 11/27/24 11:05 Dose: Not Given Documented By: YASMIN(2) Non-Admin Reason: Discontinued Lactated Ringer's (Lactated Ringers) 1,000 mls @ 999 mls/hr IV .Q1H1M ONE Stop: 11/27/24 08:22 Last Admin: 11/27/24 08:54 Dose: 999 mls/hr Documented By: ROBYN Lactated Ringer's (Lactated Ringers) 1,000 mls @ 999 mls/hr IV .Q1H1M ONE Stop: 11/27/24 12:02 Last Admin: 11/27/24 11:14 Dose: 999 mls/hr Documented By: ROBYN Micafungin Sodium 100 mg/ (Sodium Chloride) 100 mls @ 100 mls/hr IV QDAY ARI Stop: 12/13/24 08:59 Last Infusion: 12/12/24 19:15 Dose: Infused Documented By: Admin: 12/12/24 09:55 Dose: 100 mls/hr Documented By: Infusion: 12/11/24 10:12 Dose: Infused Documented By: Admin: 12/11/24 09:12 Dose: 100 mls/hr Documented By: Infusion: 12/10/24 11:12 Dose: Infused Documented By: Admin: 12/10/24 10:12 Dose: 100 mls/hr Documented By: Infusion: 12/09/24 09:00 Dose: Infused Documented By: Admin: 12/09/24 08:00 Dose: 100 mls/hr Documented By: Infusion: 12/08/24 10:32 Dose: Infused Documented By: Admin: 12/08/24 09:32 Dose: 100 mls/hr Documented By: Infusion: 12/07/24 10:57 Dose: Infused Documented By: Admin: 12/07/24 09:57 Dose: 100 mls/hr Documented By: Infusion: 12/06/24 10:47 Dose: Infused Documented By: Admin: 12/06/24 09:47 Dose: 100 mls/hr Documented By: Infusion: 12/05/24 09:57 Dose: Infused Documented By: Admin: 12/05/24 08:57 Dose: 100 mls/hr Documented By: Infusion: 12/04/24 10:37 Dose: Infused Documented By: Admin: 12/04/24 09:37 Dose: 100 mls/hr Documented By: Infusion: 12/03/24 10:46 Dose: Infused Documented By: Admin: 12/03/24 09:46 Dose: 100 mls/hr Documented By: Infusion: 12/02/24 10:59 Dose: Infused Documented By: Admin: 12/02/24 09:59 Dose: 100 mls/hr Documented By: Infusion: 12/01/24 10:21 Dose: Infused Documented By: Admin: 12/01/24 09:21 Dose: 100 mls/hr Documented By: Infusion: 11/30/24 11:17 Dose: Infused Documented By: Admin: 11/30/24 10:17 Dose: 100 mls/hr Documented By: VL(2) Infusion: 11/29/24 09:13 Dose: Infused Documented By: VL(2) Admin: 11/29/24 08:13 Dose: 100 mls/hr Documented By: Infusion: 11/28/24 10:23 Dose: Infused Documented By: Admin: 11/28/24 09:23 Dose: 100 mls/hr Documented By: ROBYN Calcium Gluconate/Sodium Chloride (Calcium Gluc/Ns 1000mg Ivpb) 1,000 mg in 50 mls @ 50 mls/hr IV X1 ONE Stop: 11/28/24 09:47 Last Infusion: 11/29/24 08:02 Dose: Infused Documented By: Admin: 11/28/24 09:23 Dose: 50 mls/hr Documented By: Admin: 11/28/24 09:22 Dose: 50 mls/hr Documented By: Infusion: 11/28/24 09:22 Dose: Infused Documented By: Admin: 11/28/24 09:22 Dose: 50 mls/hr Documented By: ROBYN Lactated Ringer's (Lactated Ringers) 1,000 mls @ 999 mls/hr IV .Q1H1M ONE Stop: 11/29/24 10:22 Last Admin: 11/29/24 10:13 Dose: 999 mls/hr Documented By: AT Sodium Chloride (Ns) 500 mls @ 999 mls/hr IV .Q31M ONE Stop: 11/29/24 18:11 Last Admin: 11/29/24 19:40 Dose: Not Given Documented By: NIKKIE Non-Admin Reason: Discontinued Lactated Ringer's (Lactated Ringers) 1,000 mls @ 999 mls/hr IV .Q1H1M ONE Stop: 11/29/24 18:45 Last Admin: 11/29/24 18:04 Dose: 999 mls/hr Documented By: DILLAN Vancomycin HCl (Vancomycin/Water 1gm Ivpb) 200 mls @ 200 mls/hr IV Q36H ARI; Protocol Stop: 12/07/24 16:59 Last Admin: 12/02/24 05:02 Dose: 200 mls/hr Documented By: Infusion: 11/30/24 18:59 Dose: Infused Documented By: Admin: 11/30/24 17:59 Dose: 200 mls/hr Documented By: VL(2) Lactated Ringer's (Lactated Ringers) 1,000 mls @ 999 mls/hr IV .Q1H1M ONE Stop: 12/01/24 01:23 Last Admin: 12/01/24 00:31 Dose: 999 mls/hr Documented By: JOSE RAUL Azithromycin 500 mg/ Sodium (Chloride) 250 mls @ 250 mls/hr IV QDAY ARI Stop: 12/08/24 10:08 Last Admin: 12/01/24 11:04 Dose: Not Given Documented By: Non-Admin Reason: Discontinued Levofloxacin/Dextrose (Levaquin Ivpb) 750 mg in 150 mls @ 100 mls/hr IV Q48H ARI; Protocol Stop: 12/08/24 14:59 Last Admin: 12/01/24 16:09 Dose: 100 mls/hr Documented By: Acetaminophen (Ofirmev Inj) 1,000 mg in 100 mls @ 250 mls/hr IV X1 ONE Stop: 12/02/24 00:37 Last Admin: 12/02/24 00:49 Dose: 250 mls/hr Documented By: ROBLES Dextrose/Lactated Ringer's (D5-Lr) 1,000 mls @ 125 mls/hr IV .Q8H ARI Stop: 12/02/24 18:29 Last Admin: 12/02/24 12:16 Dose: 125 mls/hr Documented By: LAMIN Lactated Ringer's (Lactated Ringers) 500 mls @ 999 mls/hr IV .Q31M ONE Stop: 12/02/24 16:34 Last Admin: 12/08/24 07:14 Dose: Not Given Documented By: LAMIN Non-Admin Reason: Discontinued Azithromycin 500 mg/ Sodium (Chloride) 250 mls @ 250 mls/hr IV QDAY ARI Stop: 12/06/24 16:17 Last Admin: 12/03/24 09:13 Dose: 250 mls/hr Documented By: Infusion: 12/02/24 19:20 Dose: Infused Documented By: Admin: 12/02/24 18:20 Dose: 250 mls/hr Documented By: LAMIN Piperacillin/Tazobactam/Dextrose (Zosyn) 3.375 gm in 50 mls @ 12.5 mls/hr IV Q8HR [facility]; Protocol Stop: 12/09/24 21:59 Last Admin: 12/04/24 05:10 Dose: 12.5 mls/hr Documented By: Infusion: 12/04/24 01:23 Dose: Infused Documented By: Admin: 12/03/24 21:23 Dose: 12.5 mls/hr Documented By: Infusion: 12/03/24 21:17 Dose: Infused Documented By: Admin: 12/03/24 17:17 Dose: 12.5 mls/hr Documented By: Infusion: 12/03/24 09:01 Dose: Infused Documented By: Admin: 12/03/24 05:01 Dose: 12.5 mls/hr Documented By: Infusion: 12/03/24 01:03 Dose: Infused Documented By: Admin: 12/02/24 21:03 Dose: 12.5 mls/hr Documented By: RB Piperacillin/Tazobactam/Dextrose (Zosyn) 3.375 gm in 50 mls @ 100 mls/hr IV X1 ONE Stop: 12/02/24 16:59 Last Admin: 12/02/24 17:50 Dose: 100 mls/hr Documented By: LAMIN Acetaminophen (Ofirmev Inj) 1,000 mg in 100 mls @ 250 mls/hr IV X1 ONE Stop: 12/02/24 17:41 Last Admin: 12/02/24 17:53 Dose: 250 mls/hr Documented By: AC Acetaminophen (Ofirmev Inj) 1,000 mg in 100 mls @ 250 mls/hr IV X1 ONE Stop: 12/03/24 00:35 Last Admin: 12/03/24 00:21 Dose: 250 mls/hr Documented By: RB Lactated Ringer's (Lactated Ringers) 1,000 mls @ 75 mls/hr IV .[id number] ARI Stop: 01/02/25 08:40 Last Admin: 12/05/24 01:30 Dose: Not Given Documented By: YESSENIA Non-Admin Reason: Held Admin: 12/04/24 11:56 Dose: Not Given Documented By: BECKY Non-Admin Reason: held per Admin: 12/03/24 21:24 Dose: 75 mls/hr Documented By: Infusion: 12/03/24 21:24 Dose: Infused Documented By: Admin: 12/03/24 09:13 Dose: 75 mls/hr Documented By: BECKY Acetaminophen (Ofirmev Inj) 1,000 mg in 100 mls @ 250 mls/hr IV Q6H ARI Stop: 12/04/24 03:23 Acetaminophen (Ofirmev Inj) 1,000 mg in 100 mls @ 250 mls/hr IV X1 ONE Stop: 12/03/24 09:23 Last Admin: 12/03/24 09:11 Dose: 250 mls/hr Documented By: BECKY Vancomycin HCl (Vancomycin/Water 1gm Ivpb) 200 mls @ 120 mls/hr IV Q24H ARI Stop: 12/10/24 16:59 Last Admin: 12/03/24 17:51 Dose: 120 mls/hr Documented By: BR Sodium Chloride (Ns 0.45%) 1,000 mls @ 120 mls/hr IV .Q8H20M [facility] Stop: 12/05/24 09:42 Last Admin: 12/05/24 01:30 Dose: 120 mls/hr Documented By: Infusion: 12/05/24 01:22 Dose: Infused Documented By: Admin: 12/04/24 17:02 Dose: 120 mls/hr Documented By: Infusion: 12/04/24 17:02 Dose: Infused Documented By: Admin: 12/04/24 09:37 Dose: 120 mls/hr Documented By: BECKY Levofloxacin/Dextrose (Levaquin Ivpb) 750 mg in 150 mls @ 100 mls/hr IV Q48H [facility]; Protocol Stop: 12/11/24 10:44 Last Admin: 12/08/24 11:05 Dose: 100 mls/hr Documented By: Infusion: 12/06/24 11:51 Dose: Infused Documented By: Admin: 12/06/24 10:21 Dose: 100 mls/hr Documented By: Infusion: 12/04/24 13:09 Dose: Infused Documented By: Admin: 12/04/24 11:39 Dose: 100 mls/hr Documented By: BECKY Acetaminophen (Ofirmev Inj) 1,000 mg in 100 mls @ 250 mls/hr IV Q6HR ARI Stop: 12/05/24 12:23 Last Admin: 12/05/24 05:37 Dose: 250 mls/hr Documented By: Infusion: 12/04/24 23:30 Dose: Infused Documented By: Admin: 12/04/24 23:06 Dose: 250 mls/hr Documented By: Infusion: 12/04/24 17:25 Dose: Infused Documented By: Admin: 12/04/24 17:01 Dose: 250 mls/hr Documented By: BECKY Lactated Ringer's (Lactated Ringers) 500 mls @ 999 mls/hr IV .Q31M ONE Stop: 12/05/24 09:37 Last Admin: 12/05/24 10:01 Dose: 999 mls/hr Documented By: DILLAN Sodium Chloride (Ns) 1,000 mls @ 75 mls/hr IV .[id number] [facility] Stop: 01/04/25 10:00 Last Admin: 12/05/24 10:02 Dose: 75 mls/hr Documented By: DILLAN Acetaminophen (Ofirmev Inj) 1,000 mg in 100 mls @ 250 mls/hr IV X1 ONE Stop: 12/05/24 17:10 Last Admin: 12/05/24 16:57 Dose: 250 mls/hr Documented By: BECKY Albumin Human (Albuminar-25 Ivpb) 25 gm in 100 mls @ 100 mls/hr IV X1 ONE Stop: 12/06/24 14:53 Last Admin: 12/06/24 14:51 Dose: 100 mls/hr Documented By: ZAIRE Potassium Chloride (Kcl Ivpb) 10 meq in 100 mls @ 150 mls/hr IV Q1H ARI Stop: 12/07/24 10:43 Last Admin: 12/08/24 07:15 Dose: Not Given Documented By: LAMIN Non-Admin Reason: Discontinued Potassium Chloride (Kcl Ivpb) 10 meq in 100 mls @ 150 mls/hr IV X1 ONE Stop: 12/07/24 09:09 Last Admin: 12/07/24 08:34 Dose: 150 mls/hr Documented By: MGD Potassium Chloride (Kcl Ivpb) 100 mls @ 50 mls/hr IV X1 ONE Stop: 12/07/24 11:29 Last Admin: 12/07/24 09:46 Dose: 50 mls/hr Documented By: YASMIN Albumin Human (Albuminar-25 Ivpb) 25 gm in 100 mls @ 100 mls/hr IV X1 ONE Stop: 12/08/24 09:08 Last Admin: 12/08/24 09:31 Dose: 100 mls/hr Documented By: LAMIN Magnesium Sulfate (Magnesium Sulfate Ivpb) 2 gm in 50 mls @ 25 mls/hr IV X1 ONE Stop: 12/08/24 10:54 Last Admin: 12/08/24 09:31 Dose: 25 mls/hr Documented By: LAMIN Potassium Chloride (Kcl Ivpb) 10 meq in 100 mls @ 100 mls/hr IV Q1H ARI Stop: 12/08/24 10:54 Last Admin: 12/08/24 11:05 Dose: 100 mls/hr Documented By: Infusion: 12/08/24 10:32 Dose: Infused Documented By: Admin: 12/08/24 09:32 Dose: 100 mls/hr Documented By: LAMIN Potassium Chloride (Kcl Ivpb) 10 meq in 100 mls @ 100 mls/hr IV Q1H ARI Stop: 12/09/24 11:06 Last Admin: 12/09/24 11:01 Dose: 100 mls/hr Documented By: Infusion: 12/09/24 11:01 Dose: Infused Documented By: Admin: 12/09/24 10:13 Dose: 100 mls/hr Documented By: Infusion: 12/09/24 10:11 Dose: Infused Documented By: Admin: 12/09/24 09:11 Dose: 100 mls/hr Documented By: Infusion: 12/09/24 08:59 Dose: Infused Documented By: Admin: 12/09/24 07:59 Dose: 100 mls/hr Documented By: DIANELYS Magnesium Sulfate (Magnesium Sulfate Ivpb) 2 gm in 50 mls @ 25 mls/hr IV X1 ONE Stop: 12/09/24 09:32 Last Admin: 12/09/24 07:59 Dose: 25 mls/hr Documented By: DIANELYS Doxycycline Hyclate 100 mg/ (Sodium Chloride) 100 mls @ 100 mls/hr IV BID ARI Stop: 12/16/24 08:59 Last Admin: 12/14/24 08:42 Dose: 100 mls/hr Documented By: Infusion: 12/13/24 22:42 Dose: Infused Documented By: Admin: 12/13/24 21:42 Dose: 100 mls/hr Documented By: Infusion: 12/13/24 09:28 Dose: Infused Documented By: Admin: 12/13/24 08:28 Dose: 100 mls/hr Documented By: Infusion: 12/12/24 21:39 Dose: Infused Documented By: Admin: 12/12/24 20:39 Dose: 100 mls/hr Documented By: [email or web address] Infusion: 12/12/24 09:53 Dose: Infused Documented By: [email or web address] Admin: 12/12/24 08:53 Dose: 100 mls/hr Documented By: Infusion: 12/11/24 21:32 Dose: Infused Documented By: Admin: 12/11/24 20:32 Dose: 100 mls/hr Documented By: Infusion: 12/11/24 10:12 Dose: Infused Documented By: Admin: 12/11/24 09:12 Dose: 100 mls/hr Documented By: Infusion: 12/10/24 21:21 Dose: Infused Documented By: Admin: 12/10/24 20:21 Dose: 100 mls/hr Documented By: Infusion: 12/10/24 11:12 Dose: Infused Documented By: Admin: 12/10/24 10:12 Dose: 100 mls/hr Documented By: Infusion: 12/09/24 21:39 Dose: Infused Documented By: Admin: 12/09/24 20:39 Dose: 100 mls/hr Documented By: Infusion: 12/09/24 10:43 Dose: Infused Documented By: Admin: 12/09/24 09:43 Dose: 100 mls/hr Documented By: DIANELYS Magnesium Sulfate (Magnesium Sulfate Ivpb) 2 gm in 50 mls @ 25 mls/hr IV X1 ONE Stop: 12/09/24 10:30 Last Admin: 12/09/24 09:42 Dose: 25 mls/hr Documented By: DIANELYS Albumin Human (Albuminar-25 Ivpb) 25 gm in 100 mls @ 100 mls/hr IV X1 ONE Stop: 12/09/24 10:32 Last Admin: 12/09/24 11:02 Dose: 100 mls/hr Documented By: DIANELYS Levofloxacin/Dextrose (Levaquin Ivpb) 750 mg in 150 mls @ 100 mls/hr IV Q48H [facility]; Protocol Stop: 12/16/24 17:14 Last Admin: 12/13/24 16:48 Dose: 100 mls/hr Documented By: Infusion: 12/12/24 21:27 Dose: Infused Documented By: Admin: 12/11/24 17:06 Dose: 100 mls/hr Documented By: Infusion: 12/09/24 19:04 Dose: Infused Documented By: Admin: 12/09/24 17:34 Dose: 100 mls/hr Documented By: DIANELYS Potassium Chloride (Kcl Ivpb) 20 meq in 100 mls @ 50 mls/hr IV X1 ONE Stop: 12/11/24 10:23 Last Admin: 12/11/24 09:13 Dose: 50 mls/hr Documented By: ROBERT Dextrose (D5w) 1,000 mls @ 50 mls/hr IV .Q20H ARI Stop: 01/10/25 17:44 Last Admin: 12/12/24 15:05 Dose: 50 mls/hr Documented By: Infusion: 12/12/24 13:54 Dose: Infused Documented By: Admin: 12/11/24 17:54 Dose: 50 mls/hr Documented By: ROBERT Potassium Chloride (Kcl Ivpb) 20 meq in 100 mls @ 50 mls/hr IV Q2H ARI Stop: 12/12/24 12:46 Last Infusion: 12/12/24 21:28 Dose: Infused Documented By: Admin: 12/12/24 10:34 Dose: 50 mls/hr Documented By: Infusion: 12/12/24 10:34 Dose: Infused Documented By: Admin: 12/12/24 09:12 Dose: 50 mls/hr Documented By: MGD Magnesium Sulfate (Magnesium Sulfate Ivpb) 2 gm in 50 mls @ 25 mls/hr IV X1 ONE Stop: 12/12/24 10:46 Last Infusion: 12/12/24 19:15 Dose: Infused Documented By: Admin: 12/12/24 09:13 Dose: 25 mls/hr Documented By: MGD Albumin Human (Albuminar-25 Ivpb) 12.5 gm in 50 mls @ 50 mls/hr IV X1 ONE Stop: 12/12/24 09:43 Last Infusion: 12/12/24 19:15 Dose: Infused Documented By: Admin: 12/12/24 09:12 Dose: 50 mls/hr Documented By: MGD Dextrose (D5w) 1,000 mls @ 100 mls/hr IV .Q10H ARI Stop: 01/11/25 16:29 Last Infusion: 12/13/24 08:46 Dose: 70 mls/hr Documented By: Admin: 12/13/24 02:12 Dose: 100 mls/hr Documented By: Infusion: 12/13/24 02:12 Dose: Infused Documented By: [email or web address] Admin: 12/12/24 16:49 Dose: 100 mls/hr Documented By: MGD Dextrose (D5w) 1,000 mls @ 70 mls/hr IV .[id number] ARI Stop: 01/12/25 07:34 Last Admin: 12/14/24 04:33 Dose: 70 mls/hr Documented By: Infusion: 12/14/24 03:33 Dose: Infused Documented By: Admin: 12/13/24 13:15 Dose: 70 mls/hr Documented By: AT Potassium Chloride (Kcl Ivpb) 20 meq in 100 mls @ 50 mls/hr IV Q2H ARI Stop: 12/13/24 12:36 Last Admin: 12/13/24 11:23 Dose: 50 mls/hr Documented By: Infusion: 12/13/24 11:07 Dose: Infused Documented By: Admin: 12/13/24 09:07 Dose: 50 mls/hr Documented By: AT Magnesium Sulfate (Magnesium Sulfate Ivpb) 4 gm in 50 mls @ 12.5 mls/hr IV X1 ONE Stop: 12/13/24 12:37 Last Admin: 12/13/24 09:07 Dose: 12.5 mls/hr Documented By: AT Potassium Chloride (Kcl Ivpb) 10 meq in 100 mls @ 70 mls/hr IV Q1H ARI Stop: 12/14/24 05:30 Last Admin: 12/14/24 05:47 Dose: 70 mls/hr Documented By: Infusion: 12/14/24 05:47 Dose: Infused Documented By: Admin: 12/14/24 04:31 Dose: 70 mls/hr Documented By: Infusion: 12/14/24 04:09 Dose: Infused Documented By: Admin: 12/14/24 02:43 Dose: 70 mls/hr Documented By: Infusion: 12/14/24 02:43 Dose: Infused Documented By: Admin: 12/14/24 01:49 Dose: 70 mls/hr Documented By: Infusion: 12/14/24 01:49 Dose: Infused Documented By: Admin: 12/14/24 00:52 Dose: 70 mls/hr Documented By: ELVA Potassium Chloride (Kcl Ivpb) 10 meq in 100 mls @ 100 mls/hr IV Q1H ARI Stop: 12/14/24 12:44 Potassium Chloride (Kcl Ivpb) 100 mls @ 50 mls/hr IV Q2H ARI Stop: 12/14/24 13:14 Last Admin: 12/14/24 10:19 Dose: 50 mls/hr Documented By: Infusion: 12/14/24 10:19 Dose: Infused Documented By: Admin: 12/14/24 09:21 Dose: 50 mls/hr Documented By: MGD Doxycycline Hyclate 100 mg/ (Sodium Chloride) 100 mls @ 100 mls/hr IV X1 ONE Stop: 12/14/24 11:48 Iron Sucrose (Iron Sucrose Cplx Inj 20 Mg/Ml Vial 5 Ml) 200 mg IVP X1 ONE Stop: 12/14/24 08:39 Last Admin: 12/14/24 09:57 Dose: 200 mg Documented By: YASMIN Lactobacillus Rhamnosus (Lactobacillus Rhamnosus 1 Cap) 1 cap PO BID [facility] Stop: 01/08/25 08:59 Last Admin: 12/14/24 08:42 Dose: 1 cap Documented By: Admin: 12/13/24 21:50 Dose: 1 cap Documented By: Admin: 12/13/24 08:27 Dose: 1 cap Documented By: Admin: 12/12/24 20:40 Dose: 1 cap Documented By: Admin: 12/12/24 08:54 Dose: 1 cap Documented By: Admin: 12/11/24 20:33 Dose: 1 cap Documented By: Admin: 12/11/24 09:20 Dose: 1 cap Documented By: Admin: 12/10/24 20:20 Dose: 1 cap Documented By: Admin: 12/10/24 10:13 Dose: 1 cap Documented By: Admin: 12/09/24 20:39 Dose: 1 cap Documented By: Admin: 12/09/24 11:01 Dose: 1 cap Documented By: KF Levofloxacin (Levofloxacin 250 Mg Tablet) 500 mg PO QDAY [facility] Stop: 12/09/24 08:59 Levofloxacin (Levofloxacin 250 Mg Tablet) 500 mg PO QDAY [facility] Stop: 12/08/24 14:29 Last Admin: 12/01/24 15:14 Dose: Not Given Documented By: Non-Admin Reason: Discontinued Lidocaine HCl (Lidocaine Inj Pf 1% 30 Ml Vial) Confirm Administered Dose 30 ml .ROUTE .STK-MED ONE Stop: 11/30/24 07:33 Lidocaine HCl (Lidocaine Inj Pf 2% 5 Ml Vial) Confirm Administered Dose 5 ml .ROUTE .STK-MED ONE Stop: 11/30/24 07:47 Lidocaine HCl (Lidocaine Inj Pf 1% 30 Ml Vial) Confirm Administered Dose 30 ml .ROUTE .STK-MED ONE Stop: 12/10/24 13:05 Last Admin: 12/10/24 13:36 Dose: Not Given Documented By: PAUL Non-Admin Reason: Override Medication Lidocaine HCl (Lidocaine Inj Pf 1% 30 Ml Vial) 3 ml INFL X1 ONE Stop: 12/10/24 13:31 Last Admin: 12/10/24 13:32 Dose: 3 ml Documented By: CU Comments: to sterile field administered by dr ordaz Magnesium Hydroxide (Milk Of Magnesia Susp 30 Ml Udc) 30 ml PO QDAY PRN; Protocol PRN Reason: CONSTIPATION Stop: 12/25/24 13:24 Megestrol Acetate (Megestrol Acet Susp 400 Mg/10 Ml Udc) 400 mg PO QDAY [facility] Stop: 01/05/25 11:14 Last Admin: 12/14/24 08:42 Dose: 400 mg Documented By: Admin: 12/13/24 08:27 Dose: 400 mg Documented By: Admin: 12/12/24 08:53 Dose: 400 mg Documented By: Admin: 12/11/24 09:20 Dose: 400 mg Documented By: Admin: 12/10/24 10:13 Dose: 400 mg Documented By: Admin: 12/09/24 07:59 Dose: 400 mg Documented By: Admin: 12/08/24 09:32 Dose: 400 mg Documented By: Admin: 12/07/24 09:50 Dose: 400 mg Documented By: Admin: 12/06/24 11:55 Dose: 400 mg Documented By: ZAIRE Midazolam HCl (Midazolam Inj 1 Mg/Ml Vial 2 Ml) Confirm Administered Dose 2 mg .ROUTE .STK-MED ONE Stop: 11/30/24 07:33 Midodrine (Midodrine 5 Mg Tablet) 10 mg PO TID [facility] Stop: 12/25/24 17:44 Last Admin: 11/27/24 06:15 Dose: 10 mg Documented By: Admin: 11/26/24 21:15 Dose: 10 mg Documented By: Admin: 11/26/24 13:24 Dose: 10 mg Documented By: YASMIN(2) Admin: 11/26/24 05:20 Dose: 10 mg Documented By: Admin: 11/25/24 21:09 Dose: 10 mg Documented By: Admin: 11/25/24 18:01 Dose: 10 mg Documented By: NEMO Midodrine (Midodrine 5 Mg Tablet) 10 mg PO X1 ONE Stop: 11/30/24 01:09 Last Admin: 11/30/24 01:13 Dose: 10 mg Documented By: ELVA Midodrine (Midodrine 5 Mg Tablet) 10 mg PO TID ARI Stop: 01/04/25 09:14 Last Admin: 12/14/24 05:35 Dose: Not Given Documented By: WO Non-Admin Reason: 126/81 Admin: 12/13/24 21:51 Dose: Not Given Documented By: WO Non-Admin Reason: BP 112/78 Admin: 12/13/24 13:13 Dose: Not Given Documented By: AT Non-Admin Reason: not needed Admin: 12/13/24 05:49 Dose: Not Given Documented By: [email or web address] Non-Admin Reason: Per Protocol Admin: 12/12/24 21:06 Dose: Not Given Documented By: [email or web address] Non-Admin Reason: Per Protocol Admin: 12/12/24 14:55 Dose: Not Given Documented By: MGD Non-Admin Reason: Per Protocol Admin: 12/12/24 05:22 Dose: Not Given Documented By: SD Non-Admin Reason: Vital Signs Admin: 12/11/24 22:08 Dose: Not Given Documented By: SD Non-Admin Reason: Vital Signs Admin: 12/11/24 14:07 Dose: Not Given Documented By: LW Non-Admin Reason: Per Protocol Admin: 12/11/24 05:26 Dose: Not Given Documented By: SD Non-Admin Reason: Vital Signs Admin: 12/10/24 22:16 Dose: Not Given Documented By: SD Non-Admin Reason: Vital Signs Admin: 12/10/24 14:21 Dose: Not Given Documented By: AC Non-Admin Reason: BP 116/64 Admin: 12/10/24 05:06 Dose: Not Given Documented By: SD Non-Admin Reason: Vital Signs Admin: 12/09/24 21:00 Dose: Not Given Documented By: SD Non-Admin Reason: Vital Signs Admin: 12/09/24 14:11 Dose: Not Given Documented By: KF Non-Admin Reason: per parameters Admin: 12/09/24 05:30 Dose: Not Given Documented By: AM Non-Admin Reason: Per Protocol Admin: 12/08/24 22:08 Dose: Not Given Documented By: AM Non-Admin Reason: Per Protocol Admin: 12/08/24 14:10 Dose: Not Given Documented By: AC Non-Admin Reason: BP 127/85 Admin: 12/08/24 06:36 Dose: 10 mg Documented By: ROBLES Comments: Verified with MD Nancy Richards Admin: 12/07/24 21:48 Dose: Not Given Documented By: ROBLES Non-Admin Reason: Vital Signs Admin: 12/07/24 14:06 Dose: Not Given Documented By: YASMIN Non-Admin Reason: Vital Signs Admin: 12/07/24 05:10 Dose: Not Given Documented By: ROBLES Non-Admin Reason: Vital Signs Admin: 12/06/24 21:26 Dose: 10 mg Documented By: ROBLES Comments: Verified with MD, administered with Lasix 40 mg x1 Admin: 12/06/24 15:21 Dose: 10 mg Documented By: Admin: 12/06/24 05:12 Dose: Not Given Documented By: YESSENIA Non-Admin Reason: Per Protocol Admin: 12/05/24 21:23 Dose: Not Given Documented By: YESSENIA Non-Admin Reason: Per Protocol Admin: 12/05/24 13:36 Dose: Not Given Documented By: BECKY Non-Admin Reason: Per Protocol Admin: 12/05/24 09:57 Dose: Not Given Documented By: DILLAN Non-Admin Reason: Per Protocol Mirtazapine (Mirtazapine 15 Mg Tablet) 7.5 mg PO HS ARI Stop: 01/04/25 20:59 Last Admin: 12/13/24 21:52 Dose: 7.5 mg Documented By: Admin: 12/12/24 20:40 Dose: 7.5 mg Documented By: Admin: 12/11/24 20:32 Dose: 7.5 mg Documented By: Admin: 12/10/24 20:20 Dose: 7.5 mg Documented By: Admin: 12/09/24 20:38 Dose: 7.5 mg Documented By: Admin: 12/08/24 21:26 Dose: 7.5 mg Documented By: Admin: 12/07/24 21:57 Dose: 7.5 mg Documented By: Admin: 12/06/24 21:27 Dose: 7.5 mg Documented By: Admin: 12/05/24 21:22 Dose: 7.5 mg Documented By: YESSENIA Pantoprazole Sodium (Pantoprazole 40 Mg Tablet) 40 mg PO QDAY ARI Stop: 12/26/24 08:59 Last Admin: 11/29/24 08:13 Dose: 40 mg Documented By: Admin: 11/28/24 08:22 Dose: 40 mg Documented By: Admin: 11/27/24 08:52 Dose: 40 mg Documented By: Admin: 11/26/24 08:19 Dose: 40 mg Documented By: MGJohn(2) Pharmacy Consult (Vancomycin Pharmacy To Dose 1 Each Each) 1 each IV QDAY PRN PRN Reason: CONSULT Stop: 12/25/24 11:10 Pharmacy Consult (Vancomycin Pharmacy To Dose 1 Each Each) 1 each IV QDAY ARI Stop: 12/30/24 15:29 Last Admin: 12/01/24 11:04 Dose: Not Given Documented By: Non-Admin Reason: Wrong Time Admin: 11/30/24 16:33 Dose: Not Given Documented By: VL(2) Non-Admin Reason: Pharmacy to dose. Pharmacy Consult (Vancomycin Pharmacy To Dose 1 Each Each) 1 each IV QDAY PRN PRN Reason: PROTOCOL Stop: 12/30/24 15:29 Pharmacy Consult (Pharmacy Renal Dose Adjustment 1 Ea) 1 each XX PRN PRN PRN Reason: CONSULT Stop: 01/01/25 16:16 Polyethylene Glycol (Polyethylene Glycol 17 Gm Packet) 17 gm PO QDAY ARI Stop: 12/25/24 18:29 Last Admin: 11/25/24 19:53 Dose: Not Given Documented By: DILLAN Non-Admin Reason: Cancelled by Provider Polyethylene Glycol (Polyethylene Glycol 17 Gm Packet) 17 gm PO QDAY PRN; Protocol PRN Reason: CONSTIPATION Stop: 12/25/24 18:29 Potassium Chloride (Potassium Chloride 10% 20 Meq/15 Ml Udc) 40 meq PO X1 ONE Stop: 12/09/24 08:31 Last Admin: 12/09/24 09:22 Dose: Not Given Documented By: KF Non-Admin Reason: dont give per Dr. Ponce Potassium Chloride (Potassium Chloride 20 Meq Tabcr) 40 meq PO X1 ONE Stop: 12/13/24 08:42 Last Admin: 12/13/24 08:52 Dose: Not Given Documented By: AT Non-Admin Reason: Discontinued Potassium Phos/Sodium Phos (Naph,[facility] 1 Packet (1.5 Gm)) 1 packet PO X1 ONE Stop: 12/14/24 08:45 Last Admin: 12/14/24 09:12 Dose: 1 packet Documented By: MGJohn Admin: 12/14/24 09:12 Dose: 1 packet Documented By: MGJohn Propofol (Propofol Inj 10 Mg/Ml Vial 20 Ml) Confirm Administered Dose 200 mg IV .STK-MED ONE Stop: 11/30/24 07:33 Sodium Chloride (Sodium Chloride Rt 10% 15 Ml Nebu) 5 ml INH X1 ONE Stop: 11/25/24 14:36 Last Admin: 11/25/24 22:25 Dose: Not Given Documented By: NIKKIE Non-Admin Reason: PAST DUE RT MED FROM PREVIOUS SHIFT. Sodium Chloride (Sodium Chloride Rt 10% 15 Ml Nebu) 5 ml INH X1 ONE Stop: 11/30/24 15:39 Last Admin: 12/02/24 07:05 Dose: Not Given Documented By: LAMIN Non-Admin Reason: Discontinued Comments: previous shift task Sodium Chloride (Sodium Chloride Rt 10% 15 Ml Nebu) 5 ml INH X1 ONE Stop: 12/01/24 02:09 Last Admin: 12/01/24 02:20 Dose: 5 ml Documented By: SHONA Vitamin B Complex/Vit C/Folic Acid (Vitamin B Complex Tablet) 1 tab PO QDAY ARI Stop: 01/05/25 08:59 Last Admin: 12/14/24 09:00 Dose: 1 tab Documented By: Admin: 12/13/24 08:28 Dose: 1 tab Documented By: Admin: 12/12/24 08:54 Dose: 1 tab Documented By: Admin: 12/11/24 09:21 Dose: 1 tab Documented By: Admin: 12/10/24 12:59 Dose: Not Given Documented By: LAMIN Non-Admin Reason: Patient Refused Admin: 12/09/24 07:59 Dose: 1 tab Documented By: Admin: 12/08/24 09:32 Dose: 1 tab Documented By: Admin: 12/07/24 09:50 Dose: 1 tab Documented By: Admin: 12/06/24 09:48 Dose: 1 tab Documented By: SAMANTHA see above Consultations Consultation(s) initiated? (list below): Yes Consultation #1 (Physician, Specialty, Details): See narrative above. Diagnosis Weakness Differential Diagnosis: other (Chemotherapy-induced side effects, neutropenic fever, and infectious etiology such as sepsis secondary to immunosuppression.) Most likely diagnosis given after review of the tests above:: Neutropenic fever Septic shock Admission Indicated Admission indicated?: indicated Admission Request Was there a request for admission?: Yes Admission Attestation Admission request attestation: Discussed case with [] from Hospitalist service regarding admission. Discussed patients ED course, exam findings, labs, and radiology results. The Hospitalist [agrees,declines] to accept the patient for admission. Disposition Plan Disposition Plan: Admit Critical Care Time Critical Care Time Critical Care Time: Yes Total Critical Care Time (min.): 45 Attestation: The high probability of sudden, clinically significant deterioration in the patient?s condition required the highest level of my preparedness to intervene urgently. The services I provided to this patient were to treat and/or prevent clinically significant deterioration. Services included the following: chart data review, reviewing nursing notes and/or old charts, documentation time, packaging sales consultant collaboration regarding findings and treatment options, medication orders and management, direct patient care, vital sign assessments and ordering, interpreting and reviewing diagnostic studies and lab tests. Aggregate critical care time includes only time during which I was engaged in work directly related to the patient?s care, as described above, whether at bedside or elsewhere in the Emergency Department. It did not include time spent performing other reported procedures or the services of residents, students, nurses or physician assistants. Discharge Plan Plan Patient Disposition: Admit Acute Care w/in Hospital Patient condition on transfer: Stable Problem List Clinical Impression: Neutropenic fever, Septic shock
[2024-11-25] MEDS: PIPER/TAZO INJ 4.5 GM in SODIUM CHLORIDE 0.9% (POP) 100 ML IV (11:24)
[2024-11-25] MEDS: RINGERS LACTATED 1000 ML 1,000 ML 999 ML IV ×2 (11:24→13:04)
[2024-11-25 11:33] LABS: Lactate (Lactic Acid) 1.5 mMol/L (0.4-2.0)
[2024-11-25 11:45] LABS: Basophils # (Auto) 0.0 Thou/mm3 (0.0-0.2); Basophils % (Auto) 0 % (0-2.5); Eosinophils # (Auto) 0.0 Thou/mm3 (0.0-0.5); Eosinophils % (Auto) 0 % (0-10); Hematocrit 23.6 % (41.0-53.0); Immature Granulocytes Auto 0.01 Thou/mm3 (0.00-0.00); Lymphocytes # (Auto) 0.3 Thou/mm3 (1.0-4.8); Lymphocytes % (Auto) 22 % (10-50); Mean Corpuscular HGB Conc 32.6 g/dl (31.0-37.0); Mean Corpuscular Hemoglobin 30.7 pg (25.0-35.0); Mean Corpuscular Volume 94 fL (80-100); Monocytes # (Auto) 0.1 Thou/mm3 (0.0-0.8); Monocytes % (Auto) 6 % (0-12); Neutrophils # (Auto) 1.0 Thou/mm3 (1.8-7.7); Neutrophils % (Auto) 71 % (37-80); Nucleated Red Blood Cell # 0.00 Thou/mm3 (0.00-0.00); Nucleated Red Blood Cell % 0 /100 WBC (0); RDW Standard Deviation 70.2 fL (35.1-43.9); Red Blood Count 2.51 Miln/mm3 (4.50-5.90)
[2024-11-25] MEDS: ACETAMINOPHEN 325 MG TABLET 650 MG PO (11:48)
[2024-11-25 11:56] LABS: Hemoglobin 7.7 g/dL (13.5-16.0); Platelet Count 57 Thou/mm3 (140-440)
[2024-11-25 11:57] LABS: White Blood Count 1.3 Thou/mm3 (3.8-10.6)
[2024-11-25 12:04] LABS: INR 1.0 (0.9-1.3); Partial Thromboplastin Time 43.0 Seconds (22.0-36.0); Prothrombin Time 10.9 Seconds (9.0-12.2)
--- NOTE | 2024-11-25 12:04 | PC.NURSE ---
Patient in to ED from home for nausea, vomiting and diarrhea for the past two days. Patient is a cancer patient and just had his last chemo treatment on Friday. Per son at bedside patient has been weak with n/v/d and tired after treatment. Patient is alert and oriented x4. Patient had temperature of 101.1 per son at bedside patient's white blood cells have been low. Dr. Trivedi aware of vitals. Patients right upper chest port a cath was accessed using sterile technique. Plan of care ongoing
[2024-11-25 12:11] LABS: Slide Review Platelets confirmed
[2024-11-25 12:12] LABS: Alanine Aminotransferase 555 U/L (10-49); Albumin, Serum 3.6 gm/dL (3.4-4.8); Albumin/Globulin Ratio 1.6 (1.2-2.2); Alkaline Phosphatase 175 U/L (46-116); Anion Gap 12 (7-16); Aspartate Amino Transferase 506 U/L (0-34); BUN/Creatinine Ratio 20 Ratio (12-20); Bilirubin,Total 0.7 mg/dL (0.3-1.2); Blood Urea Nitrogen 39 mg/dL (9-23); Calcium 8.0 mg/dL (8.3-10.6); Calcium (Corrected) 8.3 mg/dL (8.5-10.1); Carbon Dioxide 18.2 mMol/L (20.0-31.0); Chloride 104 mMol/L (98-107); Creatinine (Component) 2.0 mg/dL (0.6-1.3); Estimated Creatinine Clearance 32.5 mL/min (>60); Globulin 2.2 gm/dL (2.3-3.5); Glucose 161 mg/dL (74-106); Osmolality,Calculated 280 (275-295); Potassium 4.4 mMol/L (3.4-5.1); Procalcitonin 10.73 ng/ml (0.0-0.49); Sodium 134 mMol/L (136-145); Total Protein 5.8 gm/dL (5.7-8.2); eGFR 37 See Note
--- NOTE | 2024-11-25 12:17 | PC.NURSE ---
Patient was saturating 88% on room air, Patient placed on 2L nasal cannula. Patient saturating 96% on 2L
[2024-11-25] MEDS: Norepinephrine/D5W 8mg/250ml 8 MG/250 ML BAG 6.804 MG IV (13:17)
[2024-11-25] MEDS: VANCOMYCIN/WATER 1GM IVPB 200 ML IV (14:11)
[2024-11-25 14:19] LABS: Collection Type, Urine Clean Catch; Squamous Epithelial Cell,Urine 0 /hpf (0-5)
[2024-11-25 14:26] LABS: Bilirubin,Urine Negative (Negative); Blood,Urine 3+ (Negative); Clarity,Urine Clear (Clear/Hazy); Color,Urine Lt-Yellow (Lt Yel-Yel); Glucose, Urine Negative (Negative); Ketones,Urine Negative (Negative); Leukocyte Esterase,Urine Negative (Negative); Nitrite,Urine Negative (Negative); PH,Urine 5.5 (5.0-7.0); Protein,Urine 1+ (Neg - Trace); RBC,Urine 51 /hpf (0-3); Specific Gravity,Urine 1.019 (1.001-1.035); Urobilinogen,Urine Negative mg/dL (0.0-1.0); WBC,Urine 3 /hpf (0-5)
--- NOTE | 2024-11-25 15:24 | ESHP_ITS ---
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 Vitals are stable and patient is noted to have tachycardia, 101.7 ?F temperature and hypotension at the time of admission. Labs at the time of admission showed pancytopenia and noted to have severe neutropenia, elevated creatinine. Patient was admitted in view of neutropenic fever, septic shock and acute kidney injury, likely prerenal in the setting of shock. Patient will be admitted to ICU for further management of septic shock and neutropenic fever. Patient was started on broad-spectrum antibiotics, vancomycin and Zosyn. 1 dose of filgrastim 300 mg subcutaneous is given. Medical oncologist, Dr. Rutledge is consulted and she recommended to continue with the current treatment. Started on norepinephrine. Will continue to monitor vitals. Patient plan of care was discussed with the Bed Setter, Dr. Reece Gant, PGY2 Documentation for date of: 11/25/24 HPI History of Present Illness History of present illness: HPI: 64-year-old male with a history of 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 Rutledge and Dr. Ugarte at [facility] presents to the emergency room with worsening fatigue and a feeling of heaviness in his chest for the past 4 days. His symptoms began after a chemotherapy session on November 22. He is accompanied by his brother, who is providing translation. The patient reports feeling more tired than usual since his last chemotherapy session. He has also had a cough and a subjective fever. He denies shortness of breath. He describes a feeling of heaviness in his chest. His brother notes that the patient's white blood cell count was low on both Friday and Friday before the chemotherapy was administered. The patient's brother reports that the patient was constipated after chemotherapy but has not had diarrhea. There are no sick contacts at home. Patient is not complaining of any chest pain or shortness of breath. 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 Notable labs include pancytopenia and a mild metabolic acidosis with a bicarbonate of 18.2. Kidney function is significantly impaired, as shown by a creatinine of 2.0. Liver enzymes are elevated with an AST of 506 and ALT of 555, and the alkaline phosphatase is 175. The procalcitonin is markedly elevated at 10.7. CXR confirms pneumonia. EKG shows sinus tachycardia, along with nonspecific T-wave changes. Later on the patient's condition worsened, becoming hypotensive with a blood pressure of 80/49. A second liter of IV fluids was ordered, and Levophed was initiated to support blood pressure. Patient admitted to ICU for septic shock management in the setting of neutropenic fever. Review of Systems Review of Systems Narrative Review of Systems: All system Exam Vital Signs Temp Pulse Resp BP Pulse Ox O2 Del Method O2 Flow Rate 99.0 F 94 25 H 83/52 L 98 Nasal Cannula 2 11/25/24 13:06 11/25/24 15:07 11/25/24 15:07 11/25/24 13:18 11/25/24 15:07 11/25/24 13:06 11/25/24 15:07 Narrative Exam General: Elderly, not in acute distress, on 3 L of oxygen nasal cannula HEENT: NCAT. Vision grossly intact. Mucous membranes dry Respiratory: Decreased breath sounds, no adventitious breath sounds Cardiac: Tachycardic. S1-S2, no murmurs/rubs or thrills heard Abdomen: Soft, non-distended, non-tender MSK: No B/L LE edema. Skin: No mottling appreciated. Extremities warm. Port-a-cath on right-side Neuro: Motor and sensation grossly intact. Psychiatric: Appropriate mood and affect. Results: Labs 12/09/24 05:29 12/09/24 05:29 Labs: Short CBC 11/25/24 Range/Units 11:05 WBC 1.3 L* D (3.8-10.6) Thou/mm3 Hgb 7.7 L (13.5-16.0) g/dL Hct 23.6 L (41.0-53.0) % Plt Count 57 L D (140-440) Thou/mm3 BMP 11/25/24 11:05 Sodium 134 L Potassium 4.4 Chloride 104 Carbon Dioxide 18.2 L BUN 39 H Creatinine 2.0 H D Glucose 161 H Calcium 8.0 L Liver Function 11/25/24 Range/Units 11:05 Total Bilirubin 0.7 (0.3-1.2) mg/dL AST 506 H* (0-34) U/L ALT 555 H* (10-49) U/L Alkaline Phosphatase 175 H (46-116) U/L Albumin 3.6 (3.4-4.8) gm/dL Urine 11/25/24 Range/Units 14:07 Urine Color Lt-Yellow (Lt Yel-Yel) Urine Clarity Clear (Clear/Hazy) Urine pH 5.5 (5.0-7.0) Ur Specific [place] 1.019 (1.001-1.035) Urine Protein 1+ A (Neg - Trace) Urine Glucose (UA) Negative (Negative) Quality Measures Quality Measures none Medications Home Medications and Allergies Home Medications ?Medication ?Instructions ?Recorded ?Confirmed ?Type No Known Home Medications 12/01/24 08/10/29 History Allergies Allergy/AdvReac Type Severity Reaction Status Date / Time No Known Allergies Allergy Verified 11/25/24 10:10 Visit Medications Acetaminophen (Acetaminophen 325 Mg Tablet) 650 mg PO Q4HR PRN PRN Reason: PAIN SCALE 1-3 (mild Stop: 12/25/24 13:24 Acetaminophen (Acetaminophen Supp 650 Mg Supp) 650 mg WI Q4HR PRN PRN Reason: PAIN SCALE 1-3 (mild Stop: 12/25/24 13:24 Heparin Sodium (Porcine) (Heparin Sod Inj 5000 Unit/Ml Vial) 5,000 unit SC Q8HR ARI Stop: 12/09/24 21:59 Norepinephrine/Dextrose (Levophed In D5w 8mg/250ml) 8 mg in 250 mls @ 6.804 mls/hr IV .Q24H PRN; Protocol PRN Reason: PER PROTOCOL Stop: 12/25/24 13:13 Last Titration: 11/25/24 14:52 Dose: 0.15 mcg/kg/min, 20.412 mls/hr Piperacillin/Tazobactam/Dextrose (Zosyn) 3.375 gm in 50 mls @ 12.5 mls/hr IV Q8HR ARI Stop: 12/02/24 21:59 Vasopressin/Sodium Chloride (Vasostrict/Ns Ivpb) 20 unit in 100 mls @ 9 mls/hr IV .Q11H7M PRN; Protocol PRN Reason: PER PROTOCOL Stop: 12/25/24 14:36 Magnesium Hydroxide (Milk Of Magnesia Susp 30 Ml Udc) 30 ml PO QDAY PRN PRN Reason: CONSTIPATION Stop: 12/25/24 13:24 Pantoprazole Sodium (Pantoprazole 40 Mg Tablet) 40 mg PO QDAY ARI Stop: 12/26/24 08:59 Pharmacy Consult (Vancomycin Pharmacy To Dose 1 Each Each) 1 each IV QDAY PRN PRN Reason: CONSULT Stop: 12/25/24 11:10 Discontinued Medications Acetaminophen (Acetaminophen 325 Mg Tablet) 650 mg PO X1 ONE Stop: 11/25/24 11:37 Last Admin: 11/25/24 11:48 Dose: 650 mg Lactated Ringer's (Lactated Ringers) 1,000 mls @ 999 mls/hr IV .Q1H1M ONE Stop: 11/25/24 12:11 Last Infusion: 11/25/24 13:00 Dose: Infused Lactated Ringer's (Lactated Ringers) 1,000 mls @ 999 mls/hr IV .Q1H1M ONE Stop: 11/25/24 12:11 Last Infusion: 11/25/24 14:05 Dose: Infused Piperacillin Sod/Tazobactam (Sod 4.5 gm/ Sodium Chloride) 100 mls @ 200 mls/hr IV X1 ONE Stop: 11/25/24 11:40 Last Infusion: 11/25/24 13:05 Dose: Infused Vancomycin HCl (Vancomycin/Water 1gm Ivpb) 200 mls @ 120 mls/hr IV X1 ONE Stop: 11/25/24 12:54 Last Admin: 11/25/24 14:11 Dose: 120 mls/hr Sodium Chloride (Sodium Chloride Rt 10% 15 Ml Nebu) 5 ml INH X1 ONE Stop: 11/25/24 14:36 Assessment & Plan Plan Summary: 64-year-old male with a history of 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 Admitted to ICU for management of septic shock. PERSONNEL INTERVIEWER: No acute problems. CVS: #Septic shock 2/2 #Community acquired pneumonia? #Neutropenic fever Temperature was 101.7 on presentation WBC 1.3 Procalcitonin 10.7 LA 1.5 Chest x-ray shows early left perihilar left basilar pneumonia UA was negative for infection Patient received 2 L of lactated Ringer's in the ED Used US to asses right IJ and appeared non-compressible Last ECHO () showed diastolic dysfunction grade 1, EF 60-65% RX: ?Follow cultures including blood and urine - Gallbladder US to look for cholecystitis - Consider CT chest abdo pelvis to look to infection ?Patient requiring vasopressor to keep MAP greater than 65, started on Levophed - Started Midodrine 10mg TID to prevent vasopressor requirements from increasing ?If Levophed is above 0.2, start vasopressin, place central line - May use patient's port for IV meds ?Start antibiotics vancomycin and Zosyn - Ordered ECHO to assess for cardiogenic shock and estimate EF PULM: #History of stage IV small cell lung cancer, metastatic Diagnosed 2022 and started on chemotherapy and radiation therapy Last follow-up with oncologist November 22 2024, received chemotherapy Based on last oncology note patient had initial good response to chemotherapy, progression on carboplatin and irinotecan (2022), and current third-line therapy with Lubridactin. On November 22 2024, was considering Empower trial for immunotherapy, and possible transfer to [place] for Terlatumab treatment CT abdo/pelvis 11/28/2023 showed numerous hepatic and left adrenal lesions along with widespread bone mets RX: F/U outpatient for management of cancer (oncology, Dr. Rutledge and radiation, Dr. Ugarte) #Acute Hypoxic respiratory failure On 2L O2 RX: -Tx pneumonia -Wean O2 as tolerated NEPHRO: #Acute kidney injury Likely prerenal in the setting of shock Cr 2.0 (baseline around 1.3) RX: - Follow Cr with daily labs - Anticipated to improve upon resolution of shock - Received 2 L IVF - Strict I/Os - Condom cath to measure urine output - Renally dose meds - Avoid nephrotoxic meds #Mild non-anion gap metabolic acidosis DDx: GI losses, RTA, early renal failure Bicarb 18.2 AG 12 RX: - Follow lab in AM GI: #Transaminitis Likely in the setting of ischemic hepatitis from underlying septic shock T bili normal - less suspicion of bile duct obstruction AST 506, ALT 555, Alk Phos 175 (could be related to bone mets) RX: ?Follow LFTs with daily labs - Hepatitis panel in AM #Constipation After chemo session RX: - Started bowel regimen ENDO: No acute problems. HEME/ONC: #Pancytopenia #Neutropenic Fever #Hx of small cell lung cancer with mets to liver, bone Follows Dr. Rutledge, Dr. Ugarte Absolute neutrophil count 936 T101.7 - Filgrastim 300 mcg x1 to keep ANC >[address] Rutledge - Avoid chemical anticoagulation if platelets < 50 ID: #Septic shock See CVS section above. Health Maintenance: Disposition: Admit to ICU for septic shock, neutropenic fever Diet: regular DVT prophylaxis: Heparin 5000 units subcu every 8 hours GI prophylaxis: Protonix 40mg qday Lines: port-a-cath CODE STATUS: FULL Case discussed with my attending Dr. Newell, and senior resident, Dr. Stalin Ruffin MD PGY-1 Attending Provider Attestation/Addendum Patient seen and examined with above resident, Blaise Ruffin MD. I agree with the findings, assessment, and plan of care as documented except for any differences below. Patient well-known to ICU service, I previously treated him for neutropenic sepsis/septic shock a few months back. Patient at that time also had pneumonia. Workup suggest that this is likely recurrence though it is difficult to say given he has previous radiation and lung cancer. Patient placed on broad-spectrum antibiotics appropriately. Will exclude biochemical markers of infection until we are able to discern official source. Patient was started on vasopressin after appropriate volume resuscitation. Will continue to monitor closely as he has also developed component of renal dysfunction as well. Mentation is at his baseline though he is severely lethargic on our assessment in the emergency department. Patient's brother was at bedside and able to relay significant history without any recent sick contacts of note. Patient with significant pancytopenia few days after chemotherapy. Given his neutropenia and infection being very high on differential, we will proceed with giving filgrastim after discussion with oncology service. Appreciate recommendations in ongoing management. Patient and family counseled extensively at bedside on plan of care. She overall does not improved compared to prior to presentation. Total critical care time: I personally spent 40 minutes for review of physiologic parameters, directing plan of care throughout the day, coordination of care with other specialties, and counseling patient's family at bedside. This is exclusive of time spent teaching housestaff performing separate billable procedures. Patient remains at significant risk for further morbidity and mortality warranting close monitoring and care only available in the ICU. Critical care services required for neutropenic sepsis/fever, septic shock, acute kidney injury/acute renal failure, pancytopenia, healthcare associated pneumonia.
--- NOTE | 2024-11-25 15:32 | PC.SS ---
Patient is a 64 year old male presenting to the hospital for septic shock. MOLECULAR PATHOLOGIST conducted bedside contact with patient, at bedside was Brother Jorge Garza. Patient was not alert and oriented, MOLECULAR PATHOLOGIST confirmed demographic information. Patient?s brother reported that patient lives with his but she does not speak [place]. Patient?s brother stated that in case he is not able to make medical decision he will make them for him, his phone number is [phone]. Patient does not use DME and is able to ambulate independently. Patients PCP is Dr. Sayra Dick in [place] last appointment was 6-7 months ago. Patient?s brother stated that patient is receiving chemotherapy at [facility], last session was on 11/15/24. His pharmacy of choice is [facility] on [address]. Patient?s brother stated that once medically clear patient will return home with his and brother will provide transportation. PCP: Dr. Sayra Dick Decision maker: Jorge Garza PH:[phone] D/c: Home
--- NOTE | 2024-11-25 17:15 | XR_ITS ---
Examination: Abdomen sonogram, Limited Date and time of exam: November 25, 2024, 1901 hours INDICATIONS: Elevated liver function tests on laboratory examination today Technique: Real-time [place] scale transabdominal sonographic images of the upper abdomen obtained. Findings: Negative for gallstones Gallbladder wall 0.99 cm with edema Common bile duct 0.4 cm Pancreatic head 3.2 cm Liver 15.1 cm fatty infiltration. Normal hepatopedal portal venous flow. Patent IVC. IMPRESSION: Acute acalculus cholecystitis. Recommend HIDA scan or MRCP follow-up
--- NOTE | 2024-11-25 17:28 | PC.NURSE ---
REPORT CALLED TO FREDIS DICK. PATIENT WILL BE TAKEN UP TO ICU
[2024-11-25] MEDS: MIDODRINE 5 MG TABLET 10 MG PO ×2 (18:01→21:09)
--- NOTE | 2024-11-25 18:12 | ECHO_ITS ---
Transthoracic Echo Report Ht (in): 65 Wt (lb): 160 Exam Location: Echo Lab Status: Inpatient Rn Office: [facility] Indications: Procedure Performed: BP: 96 / 50 HR: 109 MEASUREMENTS (Male / Female) Normal Values 2D ECHO LV Diastolic Diameter PLAX 3.8 cm 4.2 - 5.9 / 3.9 - 5.3 cm LV Systolic Diameter PLAX 2.5 cm IVS Diastolic Thickness 1.0 cm 0.6 - 1.0 / 0.6 - 0.9 cm LVPW Diastolic Thickness 1.3 cm 0.6 - 1.0 / 0.6 - 0.9 cm LV Relative Wall Thickness 0.6 LVOT Diameter 2.0 cm Ascending Aorta Diameter 3.3 cm M-MODE AV Cusp Separation MM 1.6 cm DOPPLER AV Peak Velocity 138.0 cm/s AV Peak Gradient 7.6 mmHg AV Mean Gradient 3.0 mmHg AV Velocity Time Integral 16.7 cm LVOT Peak Velocity 112.0 cm/s LVOT Peak Gradient 5.0 mmHg LVOT Velocity Time Integral 18.5 cm LVOT Cardiac Index 3442.9 cm?/min?m? AV Area Cont Eq vti 3.5 cm? AV Area Cont Eq pk 2.5 cm? MV Area PHT 6.1 cm? Mitral E Point Velocity 59.7 cm/s Mitral A Point Velocity 97.5 cm/s Mitral E to A Ratio 0.6 LV E' Lateral Velocity 7.9 cm/s Mitral E to LV E' Lateral Ratio 7.5 LV E' Septal Velocity 8.1 cm/s Mitral E to LV E' Septal Ratio 7.4 TR Peak Velocity 215.7 cm/s TR Peak Gradient 18.6 mmHg PV Peak Velocity 143.0 cm/s PV Peak Gradient 8.2 mmHg FINDINGS Left Ventricle Normal left ventricular size, wall thickness, systolic function with no obvious regional wall motion abnormalities. Normal left ventricular diastolic filling pattern for age. The ejection fraction is visually estimated at 50-55% Right Ventricle The right ventricle is normal in size and systolic function. Left Atrium The left atrium is normal by two-dimensional, color flow and Doppler imaging with no structural abnormalities, no thrombus formation present. Right Atrium The right atrium is normal by two-dimensional imaging, color flow and Doppler imaging with no structural abnormalities, no thrombus formation present. Atrial Septum The interatrial septum appears normal with no evidence of a shunt. Aorta The aorta is normal by two-dimensional, color flow and Doppler interrogation. Mitral Valve The mitral valve is normal by two-dimensional, color flow and Doppler interrogation. There is no significant mitral valve regurgitation, stenosis or prolapse. Aortic Valve The aortic valve is trileaflet. Mild sclerosis. There is mild AR Tricuspid Valve The tricuspid valve is normal by two-dimensional, color flow and Doppler interrogation. There is trace tricuspid valve regurgitation. Pulmonic Valve The pulmonic valve is not well visualized. There is no significant pulmonic valve regurgitation. Vessels The pulmonary artery appears normal. The inferior vena cava pulmonary and hepatic veins appear normal. Pericardium there is a small pericardial effusion with no cardiac tamponade. CONCLUSIONS Indication: shock requiring pressor support Normal LV size and function. Mild LVH. Diastolic dysfunction stage I. Estimated EF 50-55% Normal RV size and function. RVSP normal. Mild AV sclerosis without stenosis. Mild AR and trace TR Trace pericardial and no evidence of tamponade. IVC normal. Robe Morales (Electronically Signed) Final Date: 28 November 2024 14:17
[2024-11-25] MEDS: FILGRASTIM INJ (ZARXIO) 300 MCG/0.5 ML SYRINGE SC (18:14)
--- NOTE | 2024-11-25 19:52 | PC.NURSE ---
MD Powell notified of pt tachycardia at HR of 120s, and pt shaking with chills and diaphoretic, pt temp of 98.5
[2024-11-25 20:04] LABS: Alanine Aminotransferase 551 U/L (10-49); Albumin, Serum 3.6 gm/dL (3.4-4.8); Albumin/Globulin Ratio 1.6 (1.2-2.2); Alkaline Phosphatase 190 U/L (46-116); Anion Gap 15 (7-16); Aspartate Amino Transferase 507 U/L (0-34); BUN/Creatinine Ratio 20 Ratio (12-20); Bilirubin,Total 0.9 mg/dL (0.3-1.2); Blood Urea Nitrogen 39 mg/dL (9-23); Calcium 8.2 mg/dL (8.3-10.6); Calcium (Corrected) 8.5 mg/dL (8.5-10.1); Carbon Dioxide 19.7 mMol/L (20.0-31.0); Chloride 104 mMol/L (98-107); Creatinine (Component) 2.0 mg/dL (0.6-1.3); Estimated Creatinine Clearance 35.6 mL/min (>60); Globulin 2.3 gm/dL (2.3-3.5); Glucose 164 mg/dL (74-106); Osmolality,Calculated 290 (275-295); Potassium 4.9 mMol/L (3.4-5.1); Sodium 139 mMol/L (136-145); Total Protein 5.9 gm/dL (5.7-8.2); eGFR 37 See Note
[2024-11-25] MEDS: CALCIUM CARBONATE 600 MG TABLET PO (20:15)
[2024-11-25] MEDS: PIPER/TAZO 3.375 GM PREMIX 3.375 GM/50 ML BAG IV (21:09)
[2024-11-25] MEDS: HEPARIN SOD INJ 5000 UNIT/ML VIAL SC (21:09)
[2024-11-25 22:18] LABS: Magnesium 2.2 mg/dL (1.6-2.6); Phosphorous 3.9 mg/dL (2.4-5.1)
[2024-11-26] VITALS (151 sets, daily range): BP systolic 67–160; BP diastolic 39–85; PULSE 83–126; RESP 16–38; TEMP 36.4–38.3; O2SAT 89–100; BMI 28.0
[2024-11-26] MEDS: MIDODRINE 5 MG TABLET 10 MG PO ×3 (05:20→21:15)
[2024-11-26] MEDS: PIPER/TAZO 3.375 GM PREMIX 3.375 GM/50 ML BAG IV ×3 (05:21→21:16)
[2024-11-26] MEDS: HEPARIN SOD INJ 5000 UNIT/ML VIAL SC ×3 (05:21→21:19)
[2024-11-26 06:22] LABS: Basophils # (Auto) 0.0 Thou/mm3 (0.0-0.2); Basophils % (Auto) 0 % (0-2.5); Eosinophils # (Auto) 0.0 Thou/mm3 (0.0-0.5); Eosinophils % (Auto) 0 % (0-10); Hematocrit 22.2 % (41.0-53.0); Immature Granulocytes Auto 0.15 Thou/mm3 (0.00-0.00); Lymphocytes # (Auto) 0.5 Thou/mm3 (1.0-4.8); Lymphocytes % (Auto) 11 % (10-50); Mean Corpuscular HGB Conc 32.9 g/dl (31.0-37.0); Mean Corpuscular Hemoglobin 30.8 pg (25.0-35.0); Mean Corpuscular Volume 94 fL (80-100); Monocytes # (Auto) 0.1 Thou/mm3 (0.0-0.8); Monocytes % (Auto) 1 % (0-12); Neutrophils # (Auto) 4.0 Thou/mm3 (1.8-7.7); Neutrophils % (Auto) 84 % (37-80); Nucleated Red Blood Cell # 0.02 Thou/mm3 (0.00-0.00); Nucleated Red Blood Cell % 0 /100 WBC (0); RDW Standard Deviation 69.8 fL (35.1-43.9); Red Blood Count 2.37 Miln/mm3 (4.50-5.90); White Blood Count 4.7 Thou/mm3 (3.8-10.6)
[2024-11-26 06:36] LABS: Alanine Aminotransferase 538 U/L (10-49); Albumin, Serum 3.2 gm/dL (3.4-4.8); Albumin/Globulin Ratio 1.3 (1.2-2.2); Alkaline Phosphatase 177 U/L (46-116); Anion Gap 12 (7-16); Aspartate Amino Transferase 560 U/L (0-34); BUN/Creatinine Ratio 18 Ratio (12-20); Bilirubin,Total 0.8 mg/dL (0.3-1.2); Blood Urea Nitrogen 41 mg/dL (9-23); Calcium 7.6 mg/dL (8.3-10.6); Calcium (Corrected) 8.2 mg/dL (8.5-10.1); Carbon Dioxide 21.1 mMol/L (20.0-31.0); Chloride 104 mMol/L (98-107); Creatinine (Component) 2.3 mg/dL (0.6-1.3); Estimated Creatinine Clearance 31.0 mL/min (>60); Globulin 2.4 gm/dL (2.3-3.5); Glucose 144 mg/dL (74-106); Hemoglobin 7.3 g/dL (13.5-16.0); Osmolality,Calculated 286 (275-295); Platelet Count 40 Thou/mm3 (140-440); Potassium 4.7 mMol/L (3.4-5.1); Sodium 137 mMol/L (136-145); Total Protein 5.6 gm/dL (5.7-8.2); eGFR 31 See Note
[2024-11-26 06:42] LABS: Glucose Estimated Average 140 mg/dL (80-131); Hemoglobin A1C 6.5 % Hgb (4.8-6.0)
--- NOTE | 2024-11-26 07:09 | XR_ITS ---
Examination: Retroperitoneal ultrasound, complete Technique: Multiple high resolution grayscale images of the retroperitoneum obtained, including kidneys and bladder. Exam date and time:November 26, 2024 0930 hours INDICATIONS: Diagnosis septic shock with acute renal insufficiency on laboratory examination today. FINDINGS: Right kidney 10.7 cm cortex 1.1 cm Left kidney 9.3 cm cortex 1.2 cm Mild renal scar formation, no hydronephrosis, no renal calculi Contracted urinary bladder No prostatomegaly no prostate nodules IMPRESSION: Small kidneys with bilateral renal cortical thinning Mild bilateral renal parenchymal scar formation No renal abscess, no hydronephrosis or renal calculi
[2024-11-26 07:10] LABS: Hepatitis A Antibody IgM Non Reactive (Non React); Hepatitis B Core Antibody IgM Non Reactive (Non React); Hepatitis B Surface Antigen Non Reactive (Non React); Hepatitis C Antibody Non Reactive (Non React)
[2024-11-26 07:27] LABS: Vancomycin,Random 10.5 mcg/mL
[2024-11-26] MEDS: Norepinephrine/D5W 8mg/250ml 8 MG/250 ML BAG 14.969 MG IV (08:00)
[2024-11-26] MEDS: PANTOPRAZOLE 40 MG TABLET PO (08:19)
[2024-11-26] MEDS: CALCIUM CARBONATE 600 MG TABLET PO (08:19)
--- NOTE | 2024-11-26 10:03 | XR_ITS ---
Examination: CT chest, without intravenous contrast. CT abdomen, without intravenous contrast. CT pelvis, without intravenous contrast. 2-D sagittal and coronal reconstructions. 3-D reconstructions. Date and time of exam:November 26, 2024 1215 hours Comparison August 27, 2024 INDICATIONS: Neutropenia with fever today, diagnosis malignant neoplasm lung CTDI vol (mgy) 7.69 DLP (MGycm)554 Technique: Multiple CT images, 3.0 mm slice thickness, obtained chest, abdomen, pelvis, with the high-resolution 64 slice scanner.. Sagittal and coronal 2-D reconstructions are obtained. 3-D reconstructions Low dose protocols were performed. One or more of the following dose reduction techniques were used; automated exposure control, adjustment of the mA and/or KV according to patient size, use of iterative reconstruction technique. Findings: No thoracic aortic aneurysm dilatation Pulmonary artery segments are not enlarged Small pericardial effusion Again noted masslike area in the left upper lobe which extends to the left hilum Dilated bronchi in the left lung especially left lower lobe Mild pneumonia both bases with small bilateral pleural effusions Gallbladder wall is abnormal, thickened and edematous Spleen is not enlarged 14 mm left adrenal nodule Left lateral periaortic lymphadenopathy including 10 mm lymph node axial image 191 Bilateral renal calculi including 14 mm calculus in the left renal pelvis, minimal left hydronephrosis Severe osteopenia with widespread osteoblastic lesions involving vertebral bodies and ribs as well as bones of the pelvis sacral segments and hips Pathologic fracture L1 which appears subacute with retropulsion of the posterior superior margin of this vertebral body 4 mm IMPRESSION: Again noted irregular masslike area in the left upper lobe stable in appearance compared with August 27, 2024 Bibasilar pneumonia Small bilateral pleural effusions Bronchiectasis in the left lower lobe. Stable metastatic left adrenal nodule Stable 10 mm left lateral periaortic lymph node Widespread osteoblastic metastatic disease again noted
[2024-11-26] MEDS: RINGERS LACTATED 1000 ML 1,000 ML 999 ML IV (10:04)
[2024-11-26] MEDS: VANCOMYCIN/NS 500 MG IVPB 100 ML 120 MG IV (10:05)
[2024-11-26 10:57] LABS: Slide Review Platelets confirmed
[2024-11-26] MEDS: Norepinephrine/D5W 8mg/250ml 8 MG/250 ML BAG 28.576 MG IV (18:57)
--- NOTE | 2024-11-26 20:22 | ESPR_ITS ---
Documentation for date of: 11/26/24 Subjective Subjective Interval history: 11/26/2024: No acute overnight events. Patient denies any new complaints and reported that he is breathing well. Noted to have febrile episode this morning and treated with cooling measures. Vitals are stable on Levophed. Labs from this morning showed improvement in WBC count to 4.7, creatinine up trended to 2.3. Overnight, patient produced adequate amount of urine output. Appears to be improved clinically since yesterday. Ultrasound done at the bedside showed collapsible IVC for which patient was given 1 L of LR bolus. CT chest/abdomen/pelvis was done to rule out any source of infection but did not show any significant abnormality except for adrenal nodule and mets, mass in the left upper lobe which is the malignancy. Will continue vasopressors, midodrine, try to wean off the vasopressors. Will continue to monitor LFTs and RFT's. Will continue vancomycin and Zosyn for now. If the absolute neutrophil count goes down below thousand, we will repeat 1 more dose of Neupogen. Exam Vital Signs Temp Pulse Resp BP Pulse Ox O2 Del Method O2 Flow Rate 99.6 F 107 H 25 H 92/53 L 96 Nasal Cannula 1 11/26/24 16:00 11/26/24 18:57 11/26/24 18:30 11/26/24 18:57 11/26/24 18:30 11/26/24 16:00 11/26/24 16:00 Narrative Exam General: Awake. HEENT: Normocephalic, atraumatic, mucous membranes moist. noted port A catheter Heart: Regular rate and rhythm, no murmurs. Lungs: Clear to auscultation with no wheezing or crackles. Abdomen: Soft, nondistended, nontender, positive bowel sounds. ?No guarding or rebound tenderness. Neurologic: Alert and oriented x3, no gross neurological deficit, and patient able to move all 4 extremities. Extremities: No edema. Skin: No rash or ecchymoses. Objective Labs 11/28/24 05:30 11/28/24 05:30 Labs: Laboratory Results - last 24 hr 11/25/24 11/26/24 19:31 04:43 WBC 4.7 D RBC 2.37 L Hgb 7.3 L Hct 22.2 L MCV 94 MCH 30.8 MCHC 32.9 RDW Std Deviation 69.8 H Plt Count 40 L D Neut % (Auto) 84 H Lymph % (Auto) 11 [place] % (Auto) 1 Eos % (Auto) 0 Baso % (Auto) 0 Neut # (Auto) 4.0 Lymph # (Auto) 0.5 L [place] # (Auto) 0.1 Eos # (Auto) 0.0 Baso # (Auto) 0.0 Immature Gran # (Auto) 0.15 H Absolute Nucleated RBC 0.02 H Immature Gran % 3 H Nucleated RBC % 0 Sodium 137 Potassium 4.7 Chloride 104 Carbon Dioxide 21.1 Anion Gap 12 BUN 41 H Creatinine 2.3 H Estim Creat Clear Calc 31.0 L eGFR 31 L BUN/Creatinine Ratio [address] Glu mg/dL 140 H Hemoglobin A1c 6.5 H Calculated Osmolality 286 Calcium 7.6 L Corrected Calcium 8.2 L Phosphorus 3.9 Magnesium 2.2 Total Bilirubin 0.8 AST 560 H* ALT 538 H* Alkaline Phosphatase 177 H Total Protein 5.6 L Albumin 3.2 L Globulin 2.4 Albumin/Globulin Ratio 1.3 Random Vancomycin 10.5 Hepatitis A IgM Ab Non Reactive Hep Bs Antigen Non Reactive Hep B Core IgM Ab Non Reactive Hepatitis C Antibody Non Reactive Misc Test Result Platelets confirmed Quality Measures Quality Measures none Assessment & Plan Assessment Current Active Medications: Generic Name Dose Route Start Last Admin Trade Name Freq PRN Reason Stop Dose Admin Acetaminophen 650 mg 11/25/24 13:25 Acetaminophen 325 Mg Tablet PO 12/25/24 13:24 Q4HR PRN PAIN SCALE 1-3 (mild Acetaminophen 650 mg 11/25/24 13:25 Acetaminophen Supp 650 Mg Supp SC 12/25/24 13:24 Q4HR PRN PAIN SCALE 1-3 (mild Bisacodyl 5 mg 11/26/24 07:16 Bisacodyl 5 Mg Tabec PO 12/26/24 08:59 QDAY PRN CONSTIPATION Protocol Calcium Carbonate 600 mg 11/25/24 20:00 11/26/24 08:19 Calcium Carbonate 600 Mg Tablet PO 12/25/24 19:59 600 mg QDAY ARI Administration Heparin Sodium (Porcine) 5,000 unit 11/25/24 22:00 11/26/24 13:24 Heparin Sod Inj 5000 Unit/Ml Vial SC 12/09/24 21:59 5,000 unit Q8HR ARI Administration Norepinephrine/Dextrose 8 mg in 250 mls @ 6.804 mls/hr 11/25/24 13:14 11/26/24 18:57 Levophed In D5w 8mg/250ml IV 12/25/24 13:13 0.21 mcg/kg/min .Q24H PRN 28.576 mls/hr PER PROTOCOL Administration Protocol 0.05 MCG/KG/MIN Piperacillin/Tazobactam/Dextrose 3.375 gm in 50 mls @ 12.5 mls/hr 11/25/24 22:00 11/26/24 13:25 Zosyn IV 12/02/24 21:59 12.5 mls/hr Q8HR ARI Administration Vasopressin/Sodium Chloride 20 unit in 100 mls @ 9 mls/hr 11/25/24 14:37 Vasostrict/Ns Ivpb IV 12/25/24 14:36 .Q11H7M PRN PER PROTOCOL Protocol 0.03 UNIT/MIN Magnesium Hydroxide 30 ml 11/25/24 13:25 Milk Of Magnesia Susp 30 Ml Udc PO 12/25/24 13:24 QDAY PRN CONSTIPATION Protocol Midodrine 10 mg 11/25/24 17:45 11/26/24 13:24 Midodrine 5 Mg Tablet PO 12/25/24 17:44 10 mg TID ARI Administration Pantoprazole Sodium 40 mg 11/26/24 09:00 11/26/24 08:19 Pantoprazole 40 Mg Tablet PO 12/26/24 08:59 40 mg QDAY ARI Administration Pharmacy Consult 1 each 11/25/24 11:11 Vancomycin Pharmacy To Dose 1 Each Each IV 12/25/24 11:10 QDAY PRN CONSULT Polyethylene Glycol 17 gm 11/26/24 07:16 Polyethylene Glycol 17 Gm Packet PO 12/25/24 18:29 QDAY PRN CONSTIPATION Protocol Plan 64-year-old male with a history of 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 Admitted to ICU for management of septic shock. SETUP TECHNICIAN: No acute problems. CVS: #Septic shock 2/2 #Community acquired pneumonia? #Neutropenic fever Temperature was 101.7 on presentation WBC 1.3 Procalcitonin 10.7 LA 1.5 Chest x-ray shows early left perihilar left basilar pneumonia UA was negative for infection Patient received 2 L of lactated Ringer's in the ED Used US to asses right IJ and appeared non-compressible Last ECHO () showed diastolic dysfunction grade 1, EF 60-65% CT chest/Abdomen/pelvis did not show any significant source of infection RX: ?Follow cultures including blood and urine ?Started on Levophed - Started Midodrine 10mg TID to prevent vasopressor requirements from increasing ?If Levophed is above 0.2, start vasopressin - May use patient's port for IV meds ? Start antibiotics vancomycin and Zosyn - Ordered ECHO to assess for cardiogenic shock and estimate EF PULM: #History of stage IV small cell lung cancer, metastatic Diagnosed 2022 and started on chemotherapy and radiation therapy Last follow-up with oncologist November 22 2024, received chemotherapy Based on last oncology note patient had initial good response to chemotherapy, progression on carboplatin and irinotecan (2022), and current third-line therapy with Lubridactin. On November 22 2024, was considering [facility] trial for immunotherapy, and possible transfer to [place] for Terlatumab treatment CT abdo/pelvis 11/28/2023 showed numerous hepatic and left adrenal lesions along with widespread bone mets RX: F/U outpatient for management of cancer (oncology, Dr. Rutledge and radiation, Dr. Ugarte) #Acute Hypoxic respiratory failure On 2L O2 RX: -Tx pneumonia -Wean O2 as tolerated NEPHRO: #Acute kidney injury Likely prerenal in the setting of shock Cr 2.0 (baseline around 1.3) Creatinine as of 11/27/2024 is 2.3 RX: - 1 L bolus of LR is given as of 11/27/2024 as patient IVC is collapsing - Will continue vasopressors - Patient appears to have adequate urine output in spite of uptrending creatinine - Will continue to monitor renal functions, will avoid nephrotoxic medications and renal dose medications GI: #Transaminitis Likely in the setting of ischemic hepatitis from underlying septic shock T bili normal - less suspicion of bile duct obstruction AST 506, ALT 555, Alk Phos 175 (could be related to bone mets) RX: ?Follow LFTs with daily labs - Hepatitis panel is negative - CT abdomen/pelvis was done and did not show any significant abnormality. Gallbladder ultrasound was done and did not show any CBD obstruction. ENDO: # New onset diabetes mellitus - HbA1c 6.5% - Will recommend dietary and lifestyle modifications for now - Will recommend to follow-up PCP on outpatient basis for further treatment. HEME/ONC: #Pancytopenia, resolving #Neutropenic Fever #Hx of small cell lung cancer with mets to liver, bone Follows Dr. Shanel Serra Absolute neutrophil count 936 T101.7 - Filgrastim 300 mcg x1 to keep ANC >[address] Rutledge ID: #Septic shock See CVS section above. Health Maintenance: Disposition: Admit to ICU for septic shock, neutropenic fever Diet: regular DVT prophylaxis: Heparin 5000 units subcu every 8 hours GI prophylaxis: Protonix 40mg qday Lines: port-a-cath CODE STATUS: FULL Patient plan of care was discussed with the Supervisor Product Inspection, Dr. Reece Gant, PGY2 Attending Provider Attestation/Addendum Patient seen and examined with above resident, Jorge Gant MD. I agree with the findings, assessment, and plan of care as document except for any differences below. Patient remains in septic shock despite appropriate antibiotic coverage. Overnight had decreasing requirements for vasopressors. Additional IV fluids based on volume responsiveness as predicted by IVC collapse during spontaneous respiration. Continues to have significant acute kidney injury with low urine output as well. CT chest/abdomen/pelvis to localize underlying infection. WBC count improved significantly after single dose of GM- CSF as per oncology recommendations, can be taken off of neutropenic precautions with recovery of ANC. Continue on empiric vancomycin and Zosyn which will be adequate to cover typical organisms associated with neutropenic sepsis. Patient and his family updated at bedside. He reports that he feels better and is appreciative of care. Will resume diet given low vasopressor requirements. Patient continues to use port for central access as peripheral IVs. Total critical care time: I personally spent 45 minutes for review of physiologic parameters, directing plan of care throughout today, coordination of care with other subspecialist, and counseling patient and family at bedside. This is exclusive of time spent teaching of staff performing any separate billable procedures. Patient remains at significant risk for further morbidity and mortality warranting close monitoring and care only available in the ICU. Critical care services required for neutropenic sepsis/septic shock, healthcare associated pneumonia, shock liver, and acute renal failure.
[2024-11-27] VITALS (108 sets, daily range): BP systolic 69–122; BP diastolic 42–69; PULSE 93–115; RESP 16–34; TEMP 36.6–37.9; O2SAT 88–100; BMI 27.8
[2024-11-27] MEDS: Norepinephrine/D5W 8mg/250ml 8 MG/250 ML BAG 36.741 MG IV (03:19)
[2024-11-27 05:07] LABS: Basophils # (Auto) 0.0 Thou/mm3 (0.0-0.2); Basophils % (Auto) 0 % (0-2.5); Eosinophils # (Auto) 0.0 Thou/mm3 (0.0-0.5); Eosinophils % (Auto) 0 % (0-10); Hematocrit 21.3 % (41.0-53.0); Immature Granulocytes Auto 0.24 Thou/mm3 (0.00-0.00); Lymphocytes # (Auto) 0.4 Thou/mm3 (1.0-4.8); Lymphocytes % (Auto) 16 % (10-50); Mean Corpuscular HGB Conc 32.9 g/dl (31.0-37.0); Mean Corpuscular Hemoglobin 30.4 pg (25.0-35.0); Mean Corpuscular Volume 93 fL (80-100); Monocytes # (Auto) 0.1 Thou/mm3 (0.0-0.8); Monocytes % (Auto) 3 % (0-12); Neutrophils # (Auto) 1.7 Thou/mm3 (1.8-7.7); Neutrophils % (Auto) 70 % (37-80); Nucleated Red Blood Cell # 0.03 Thou/mm3 (0.00-0.00); Nucleated Red Blood Cell % 1 /100 WBC (0); RDW Standard Deviation 70.4 fL (35.1-43.9); Red Blood Count 2.30 Miln/mm3 (4.50-5.90); White Blood Count 2.4 Thou/mm3 (3.8-10.6)
[2024-11-27 05:13] LABS: Hemoglobin 7.0 g/dL (13.5-16.0)
[2024-11-27 05:15] LABS: Platelet Count 21 Thou/mm3 (140-440)
[2024-11-27 05:33] LABS: Magnesium 2.2 mg/dL (1.6-2.6); Phosphorous 3.7 mg/dL (2.4-5.1); Vancomycin,Random 9.8 mcg/mL
[2024-11-27 05:56] LABS: Slide Review Platelets confirmed
[2024-11-27 05:57] LABS: Path Review Blood Smear Sent to Pathologist
[2024-11-27] MEDS: PIPER/TAZO 3.375 GM PREMIX 3.375 GM/50 ML BAG IV ×3 (06:15→22:22)
[2024-11-27] MEDS: HEPARIN SOD INJ 5000 UNIT/ML VIAL SC (06:15)
[2024-11-27] MEDS: MIDODRINE 5 MG TABLET 10 MG PO (06:15)
[2024-11-27 08:48] LABS: Alanine Aminotransferase 501 U/L (10-49); Albumin, Serum 3.1 gm/dL (3.4-4.8); Albumin/Globulin Ratio 1.6 (1.2-2.2); Alkaline Phosphatase 200 U/L (46-116); Anion Gap 13 (7-16); Aspartate Amino Transferase 524 U/L (0-34); BUN/Creatinine Ratio 19 Ratio (12-20); Bilirubin,Total 0.7 mg/dL (0.3-1.2); Blood Urea Nitrogen 51 mg/dL (9-23); Calcium 7.6 mg/dL (8.3-10.6); Calcium (Corrected) 8.3 mg/dL (8.5-10.1); Carbon Dioxide 18.2 mMol/L (20.0-31.0); Chloride 105 mMol/L (98-107); Creatinine (Component) 2.7 mg/dL (0.6-1.3); Estimated Creatinine Clearance 26.3 mL/min (>60); Globulin 2.0 gm/dL (2.3-3.5); Glucose 187 mg/dL (74-106); Osmolality,Calculated 290 (275-295); Potassium 4.1 mMol/L (3.4-5.1); Sodium 136 mMol/L (136-145); Total Protein 5.1 gm/dL (5.7-8.2); eGFR 26 See Note
[2024-11-27] MEDS: CALCIUM CARBONATE 600 MG TABLET PO (08:52)
[2024-11-27] MEDS: PANTOPRAZOLE 40 MG TABLET PO (08:52)
[2024-11-27] MEDS: RINGERS LACTATED 1000 ML 1,000 ML 999 ML IV ×2 (08:54→11:14)
--- NOTE | 2024-11-27 10:14 | ESPR_ITS ---
Documentation for date of: 11/27/24 Subjective Subjective Interval history: Interval history: 11/26/2024: No acute overnight events. Patient denies any new complaints and reported that he is breathing well. Noted to have febrile episode this morning and treated with cooling measures. Vitals are stable on Levophed. Labs from this morning showed improvement in WBC count to 4.7, creatinine up trended to 2.3. Overnight, patient produced adequate amount of urine output. Appears to be improved clinically since yesterday. Ultrasound done at the bedside showed collapsible IVC for which patient was given 1 L of LR bolus. CT chest/abdomen/pelvis was done to rule out any source of infection but did not show any significant abnormality except for adrenal nodule and mets, mass in the left upper lobe which is the malignancy. Will continue vasopressors, midodrine, try to wean off the vasopressors. Will continue to monitor LFTs and RFT's. Will continue vancomycin and Zosyn for now. If the absolute neutrophil count goes down below thousand, we will repeat 1 more dose of Neupogen. 11/27/2024: The patient had no acute overnight events or febrile episodes. After receiving 1 L of Lactated Ringer's, the pressor requirement decreased, and the plan is to wean the patient off pressors with adequate volume resuscitation. The patient is currently on 1 L of oxygen via nasal cannula. Due to a negative MRSA swab, vancomycin was discontinued today, and the patient's calculated ANC is greater than 1000. Midodrine has been stopped, and recent blood cultures were obtained from both a port and a peripheral line. An echocardiogram with Doppler is still pending. Exam Vital Signs Temp Pulse Resp BP Pulse Ox O2 Del Method O2 Flow Rate 99.2 F 111 H 30 H 122/64 95 Nasal Cannula 1 11/27/24 04:00 11/27/24 08:09 11/27/24 08:09 11/27/24 07:15 11/27/24 08:09 11/26/24 16:00 11/27/24 08:09 Narrative Exam General: Awake. HEENT: Normocephalic, atraumatic, mucous membranes moist. Noted port A catheter Heart: Regular rate and rhythm, no murmurs. Lungs: Clear to auscultation with no wheezing or crackles. Abdomen: Soft, nondistended, nontender, positive bowel sounds. ?No guarding or rebound tenderness. Neurologic: Alert and oriented x3, no gross neurological deficit, and patient able to move all 4 extremities. Extremities: No edema. Skin: No rash or ecchymoses. Objective Labs 11/28/24 05:30 11/28/24 05:30 Labs: Laboratory Results - last 24 hr 11/26/24 11/27/24 04:43 04:45 WBC 2.4 L D RBC 2.30 L Hgb 7.0 L Hct 21.3 L* MCV 93 MCH 30.4 MCHC 32.9 RDW Std Deviation 70.4 H Plt Count 21 L* D Neut % (Auto) 70 Lymph % (Auto) 16 [place] % (Auto) 3 Eos % (Auto) 0 Baso % (Auto) 0 Neut # (Auto) 1.7 L Lymph # (Auto) 0.4 L [place] # (Auto) 0.1 Eos # (Auto) 0.0 Baso # (Auto) 0.0 Immature Gran # (Auto) 0.24 H Absolute Nucleated RBC 0.03 H Immature Gran % 10 H Nucleated RBC % 1 H Smear Path Review Sent to Pathologist Sodium 136 Potassium 4.1 D Chloride 105 Carbon Dioxide 18.2 L Anion Gap 13 BUN 51 H Creatinine 2.7 H Estim Creat Clear Calc 26.3 L eGFR 26 L BUN/Creatinine Ratio 19 Glucose 187 H Calculated Osmolality 290 Calcium 7.6 L Corrected Calcium 8.3 L Phosphorus 3.7 Magnesium 2.2 Total Bilirubin 0.7 AST 524 H* ALT 501 H* Alkaline Phosphatase 200 H D Total Protein 5.1 L Albumin 3.1 L Globulin 2.0 L Albumin/Globulin Ratio 1.6 Random Vancomycin 9.8 Misc Test Result Platelets confirmed Platelets confirmed Quality Measures Quality Measures none Assessment & Plan Assessment Current Active Medications: Generic Name Dose Route Start Last Admin Trade Name Freq PRN Reason Stop Dose Admin Acetaminophen 650 mg 11/25/24 13:25 Acetaminophen 325 Mg Tablet PO 12/25/24 13:24 Q4HR PRN PAIN SCALE 1-3 (mild Acetaminophen 650 mg 11/25/24 13:25 Acetaminophen Supp 650 Mg Supp DE 12/25/24 13:24 Q4HR PRN PAIN SCALE 1-3 (mild Bisacodyl 5 mg 11/26/24 07:16 Bisacodyl 5 Mg Tabec PO 12/26/24 08:59 QDAY PRN CONSTIPATION Protocol Calcium Carbonate 600 mg 11/25/24 20:00 11/27/24 08:52 Calcium Carbonate 600 Mg Tablet PO 12/25/24 19:59 600 mg QDAY ARI Administration Heparin Sodium (Porcine) 5,000 unit 11/25/24 22:00 11/27/24 06:15 Heparin Sod Inj 5000 Unit/Ml Vial SC 12/09/24 21:59 5,000 unit Q8HR ARI Administration Norepinephrine/Dextrose 8 mg in 250 mls @ 6.804 mls/hr 11/25/24 13:14 11/27/24 09:30 Levophed In D5w 8mg/250ml IV 12/25/24 13:13 0.17 mcg/kg/min .Q24H PRN 23.133 mls/hr PER PROTOCOL Titration Protocol 0.05 MCG/KG/MIN Piperacillin/Tazobactam/Dextrose 3.375 gm in 50 mls @ 12.5 mls/hr 11/25/24 22:00 11/27/24 06:15 Zosyn IV 12/02/24 21:59 12.5 mls/hr Q8HR ARI Administration Vasopressin/Sodium Chloride 20 unit in 100 mls @ 9 mls/hr 11/25/24 14:37 Vasostrict/Ns Ivpb IV 12/25/24 14:36 .Q11H7M PRN PER PROTOCOL Protocol 0.03 UNIT/MIN Vancomycin/Sodium Chloride 750 mg in 150 mls @ 120 mls/hr 11/27/24 10:00 Vancomycin/Ns 750 Mg Ivpb IV 11/27/24 11:14 X1 ONE Magnesium Hydroxide 30 ml 11/25/24 13:25 Milk Of Magnesia Susp 30 Ml Udc PO 12/25/24 13:24 QDAY PRN CONSTIPATION Protocol Pantoprazole Sodium 40 mg 11/26/24 09:00 11/27/24 08:52 Pantoprazole 40 Mg Tablet PO 12/26/24 08:59 40 mg QDAY ARI Administration Pharmacy Consult 1 each 11/25/24 11:11 Vancomycin Pharmacy To Dose 1 Each Each IV 12/25/24 11:10 QDAY PRN CONSULT Polyethylene Glycol 17 gm 11/26/24 07:16 Polyethylene Glycol 17 Gm Packet PO 12/25/24 18:29 QDAY PRN CONSTIPATION Protocol Plan 64-year-old male with a history of 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 Admitted to ICU for management of septic shock. 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 CVS: #Septic shock 2/2 #Community acquired pneumonia? #Neutropenic fever Temperature was 101.7 on presentation WBC 1.3 Procalcitonin 10.7 LA 1.5 Chest x-ray shows early left perihilar left basilar pneumonia UA was negative for infection Last ECHO () showed diastolic dysfunction grade 1, EF 60-65% CT chest/Abdomen/pelvis did not show any significant source of infection MRSA negative RX: - May use patient's port for IV meds - Follow cultures including port and blood and urine - Wean off Levophed as tolerated - Decreased Midodrine to 5 mg TID and will stop tomorrow - Continue Zosyn - Ordered ECHO to assess for cardiogenic shock and estimate EF PULM: #History of stage IV small cell lung cancer, metastatic Diagnosed 2022 and started on chemotherapy and radiation therapy Last follow-up with oncologist November 22 2024, received chemotherapy Based on last oncology note patient had initial good response to chemotherapy, progression on carboplatin and irinotecan (2022), and current third-line therapy with Lubridactin. On November 22 2024, was considering Empower trial for immunotherapy, and possible transfer to [place] for Terlatumab treatment CT abdo/pelvis 11/28/2023 showed numerous hepatic and left adrenal lesions along with widespread bone mets RX: F/U outpatient for management of cancer (oncology, Dr. Rutledge and radiation, Dr. Ugarte) #Acute Hypoxic respiratory failure On 4L O2 RX: -Tx pneumonia -Wean O2 as tolerated NEPHRO: #Acute kidney injury Likely prerenal in the setting of shock Cr 2.7 (baseline around 1.3) RX: - 2 L bolus of LR is given as of 11/27/2024 as patient IVC is collapsing - Wean off vasopressor as tolerated - Patient appears to have adequate urine output in spite of uptrending creatinine - Will continue to monitor renal functions, will avoid nephrotoxic medications and renal dose medications GI: #Transaminitis, improving Likely in the setting of ischemic hepatitis from underlying septic shock T bili normal - less suspicion of bile duct obstruction AST 506, ALT 555, Alk Phos 175 (could be related to bone mets) RX: - Follow LFTs with daily labs - Hepatitis panel is negative - CT abdomen/pelvis was done and did not show any significant abnormality. Gallbladder ultrasound was done and did not show any CBD obstruction. ENDO: #New onset diabetes mellitus - HbA1c 6.5% - Will recommend dietary and lifestyle modifications for now - Will recommend to follow-up PCP on outpatient basis for further treatment. - Aim for glucose of 140-180 HEME/ONC: #Pancytopenia #Neutropenic Fever #Hx of small cell lung cancer with mets to liver, bone Follows Dr. Rutledge, Dr. Ugarte Absolute neutrophil count >1000 No febrile epsisodes for past 24hrs Recieved Filgrastim 300 mcg x1 (on 11/25) - Keep ANC >[address] Rutledge - If Hgb <7 transfuse pRBC ID: #Septic shock See CVS section above. Health Maintenance: Disposition: Admit to ICU for septic shock, neutropenic fever Diet: regular DVT prophylaxis: Heparin 5000 units subcu every 8 hours GI prophylaxis: Protonix 40mg qday Lines: port-a-cath CODE STATUS: FULL Patient plan of care was discussed with the Auto Leasing Manager, Dr. Reece Ruffin MD PGY-1 Attending Provider Attestation/Addendum Patient seen and examined with above resident, Blaise Ruffin MD. I agree with the findings, assessment, and plan of care as documented except for any differences below. Patient overnight afebrile with stable neutrophil count. Patient continued to require a higher doses of vasopressors overnight. Liter of fluid was administered given the RAMSES and lack of urine output. He did produce some throughout the day. Brownish discoloration suggestive of ATN likely in the setting of his septic shock. Patient's pressor requirements reduced by 50% throughout the day but continued to be limited in ability to wean successfully. MRSA screening was negative and rifamycin was appropriately stopped. Continue Zosyn for empiric treatment of healthcare associated infection/pneumonia. Patient's mentation remains stable and is tolerating diet well. Patient without any abdominal pain or diarrhea. CT did not determine any other source of infection at this point. Will continue to monitor closely for localization of potential etiologies. No need for GM-CSF today but will continue to monitor closely bone marrow function. Total critical care time: I personally spent 40 minutes for review of physiologic parameters, directing plan of care throughout the day, and counseling patient at bedside. This is exclusive of time spent teaching of staff or performing separate billable procedures. Patient remains at significant risk for further morbidity and mortality warranting close monitoring and care only available in the ICU. Patient required critical care services for neutropenic fever, septic shock, healthcare associated pneumonia, and acute hypoxic respiratory failure.
[2024-11-27] MEDS: Norepinephrine/D5W 8mg/250ml 8 MG/250 ML BAG 17.69 MG IV (11:14)
[2024-11-28] VITALS (95 sets, daily range): BP systolic 77–117; BP diastolic 44–71; PULSE 98–113; RESP 15–31; TEMP 37.2–38; O2SAT 90–100; BMI 28.1
[2024-11-28] MEDS: Norepinephrine/D5W 8mg/250ml 8 MG/250 ML BAG 20.412 MG IV (03:00)
[2024-11-28] MEDS: PIPER/TAZO 3.375 GM PREMIX 3.375 GM/50 ML BAG IV ×3 (05:37→21:50)
[2024-11-28 06:21] LABS: Basophils # (Auto) 0.0 Thou/mm3 (0.0-0.2); Basophils % (Auto) 0 % (0-2.5); Eosinophils # (Auto) 0.0 Thou/mm3 (0.0-0.5); Eosinophils % (Auto) 0 % (0-10); Immature Granulocytes Auto 0.10 Thou/mm3 (0.00-0.00); Lymphocytes # (Auto) 0.3 Thou/mm3 (1.0-4.8); Lymphocytes % (Auto) 36 % (10-50); Mean Corpuscular HGB Conc 31.8 g/dl (31.0-37.0); Mean Corpuscular Hemoglobin 29.4 pg (25.0-35.0); Mean Corpuscular Volume 93 fL (80-100); Monocytes # (Auto) 0.1 Thou/mm3 (0.0-0.8); Monocytes % (Auto) 6 % (0-12); Neutrophils # (Auto) 0.4 Thou/mm3 (1.8-7.7); Neutrophils % (Auto) 45 % (37-80); Nucleated Red Blood Cell # 0.02 Thou/mm3 (0.00-0.00); Nucleated Red Blood Cell % 3 /100 WBC (0); RDW Standard Deviation 69.2 fL (35.1-43.9); Red Blood Count 2.14 Miln/mm3 (4.50-5.90)
[2024-11-28 06:34] LABS: Hematocrit 19.8 % (41.0-53.0); Hemoglobin 6.3 g/dL (13.5-16.0); White Blood Count 0.8 Thou/mm3 (3.8-10.6)
[2024-11-28 06:35] LABS: Platelet Count 8 Thou/mm3 (140-440)
[2024-11-28 06:41] LABS: Slide Review Platelets confirmed
[2024-11-28] MEDS: CALCIUM CARBONATE 600 MG TABLET PO (08:22)
[2024-11-28] MEDS: FILGRASTIM INJ (ZARXIO) 300 MCG/0.5 ML SYRINGE SC (08:22)
[2024-11-28] MEDS: PANTOPRAZOLE 40 MG TABLET PO (08:22)
--- NOTE | 2024-11-28 08:26 | XR_ITS ---
Examination: AP chest single view Technique: AP upright portable chest single view Date and time: November 28, 2024, 0838 hrs., Comparison November 25, 2024 Indications: Perihilar basilar pneumonia on the left on chest film November 25, 2024. Findings: There remains left perihilar left upper lobe and left basilar pneumonia Mild enlargement cardiac contour. Mild vascular congestion. Left apical pleural thickening. Right internal jugular Port-A-Cath tip right atrium Impression: There remains significant left lung pneumonia.
[2024-11-28 08:41] LABS: Alanine Aminotransferase 344 U/L (10-49); Albumin, Serum 2.9 gm/dL (3.4-4.8); Albumin/Globulin Ratio 1.5 (1.2-2.2); Alkaline Phosphatase 228 U/L (46-116); Anion Gap 11 (7-16); Aspartate Amino Transferase 352 U/L (0-34); BUN/Creatinine Ratio 18 Ratio (12-20); Bilirubin,Total 0.6 mg/dL (0.3-1.2); Blood Urea Nitrogen 46 mg/dL (9-23); Calcium 7.5 mg/dL (8.3-10.6); Calcium (Corrected) 8.4 mg/dL (8.5-10.1); Carbon Dioxide 20.5 mMol/L (20.0-31.0); Chloride 105 mMol/L (98-107); Creatinine (Component) 2.5 mg/dL (0.6-1.3); Estimated Creatinine Clearance 28.6 mL/min (>60); Globulin 2.0 gm/dL (2.3-3.5); Glucose 153 mg/dL (74-106); Osmolality,Calculated 286 (275-295); Potassium 3.8 mMol/L (3.4-5.1); Sodium 136 mMol/L (136-145); Total Protein 4.9 gm/dL (5.7-8.2); eGFR 28 See Note
[2024-11-28] MEDS: CALCIUM GLUC/NS 1000MG IVPB 1,000 MG/50 ML BAG 50 MG IV ×3 (09:22→09:23)
[2024-11-28 09:23] LABS: Ferritin > 3300 ng/mL (10.5-307.3); Iron 139 mcg/dL (65-175); Percent Iron Saturation 50 % (20-55); Total Iron Binding Capacity 274 mcg/dL (250-425); Unsaturated Iron Binding 135 (225-295)
[2024-11-28] MEDS: MICAFUNGIN SODIUM INJ 100 MG in SODIUM CHLORIDE 0.9% 100 ML IV (09:23)
[2024-11-28 14:41] LABS: C-Reactive Protein 4.8 mg/dL (0.0-0.9)
[2024-11-28 15:25] LABS: Cocci Serology, IgM Negative (Negative)
[2024-11-28 17:40] LABS: Basophils # (Auto) 0.0 Thou/mm3 (0.0-0.2); Basophils % (Auto) 0 % (0-2.5); Eosinophils # (Auto) 0.0 Thou/mm3 (0.0-0.5); Eosinophils % (Auto) 3 % (0-10); Hematocrit 21.1 % (41.0-53.0); Immature Granulocytes Auto 0.03 Thou/mm3 (0.00-0.00); Lymphocytes # (Auto) 0.2 Thou/mm3 (1.0-4.8); Lymphocytes % (Auto) 46 % (10-50); Mean Corpuscular HGB Conc 33.6 g/dl (31.0-37.0); Mean Corpuscular Hemoglobin 30.3 pg (25.0-35.0); Mean Corpuscular Volume 90 fL (80-100); Monocytes # (Auto) 0.0 Thou/mm3 (0.0-0.8); Monocytes % (Auto) 3 % (0-12); Neutrophils # (Auto) 0.1 Thou/mm3 (1.8-7.7); Neutrophils % (Auto) 39 % (37-80); Nucleated Red Blood Cell # 0.02 Thou/mm3 (0.00-0.00); Nucleated Red Blood Cell % 6 /100 WBC (0); RDW Standard Deviation 64.3 fL (35.1-43.9); Red Blood Count 2.34 Miln/mm3 (4.50-5.90)
--- NOTE | 2024-11-28 17:45 | PD.RESPRO ---
Documentation for date of: 11/28/24 Subjective Subjective Interval history: Interval history: 11/26/2024: No acute overnight events. Patient denies any new complaints and reported that he is breathing well. Noted to have febrile episode this morning and treated with cooling measures. Vitals are stable on Levophed. Labs from this morning showed improvement in WBC count to 4.7, creatinine up trended to 2.3. Overnight, patient produced adequate amount of urine output. Appears to be improved clinically since yesterday. Ultrasound done at the bedside showed collapsible IVC for which patient was given 1 L of LR bolus. CT chest/abdomen/pelvis was done to rule out any source of infection but did not show any significant abnormality except for adrenal nodule and mets, mass in the left upper lobe which is the malignancy. Will continue vasopressors, midodrine, try to wean off the vasopressors. Will continue to monitor LFTs and RFT's. Will continue vancomycin and Zosyn for now. If the absolute neutrophil count goes down below thousand, we will repeat 1 more dose of Neupogen. 11/27/2024: The patient had no acute overnight events or febrile episodes. After receiving 1 L of Lactated Ringer's, the pressor requirement decreased, and the plan is to wean the patient off pressors with adequate volume resuscitation. The patient is currently on 1 L of oxygen via nasal cannula. Due to a negative MRSA swab, vancomycin was discontinued today, and the patient's calculated ANC is greater than 1000. Midodrine has been stopped, and recent blood cultures were obtained from both a port and a peripheral line. An echocardiogram with Doppler is still pending. 11/28/2024: No new acute overnight events or febrile episodes. Patient had an ANC below 1,000 and was given 300 mcg of subcutaneous filgrastim. He also received one unit of packed red blood cells and one unit of platelets today. Today's echocardiogram showed normal left ventricular size and function with an estimated ejection fraction of 50-55% and stage I diastolic dysfunction. Patient is now off vasopressor support. The source of his sepsis has not been definitively identified, but pneumonia is a possibility. He is on antibiotics but previously had a fever while on them. Given his neutropenic state, micafungin has been initiated. If the patient remains off vasopressors tomorrow, he will be transferred to the medical floor. Exam Vital Signs Temp Pulse Resp BP Pulse Ox O2 Del Method O2 Flow Rate 100.1 F 105 H 16 101/58 L 95 Nasal Cannula 2 11/28/24 14:44 11/28/24 17:00 11/28/24 17:00 11/28/24 17:00 11/28/24 17:00 11/28/24 16:00 11/28/24 16:00 Narrative Exam General: Awake. In no acute distress. Indonesian speaking. HEENT: Normocephalic, atraumatic, mucous membranes moist. Noted port A catheter Heart: Regular rate and rhythm, no murmurs. Lungs: Clear to auscultation with no wheezing or crackles. Abdomen: Soft, nondistended, nontender, positive bowel sounds. ?No guarding or rebound tenderness. Neurologic: Alert and oriented x3, no gross neurological deficit, and patient able to move all 4 extremities. Extremities: No edema. Skin: No rash or ecchymoses. Objective Labs 11/30/24 06:10 11/30/24 06:10 Labs: Laboratory Results - last 24 hr 11/27/24 11/28/24 11/28/24 13:05 05:30 10:02 WBC 0.8 L* D RBC 2.14 L Hgb 6.3 L* Hct 19.8 L* MCV 93 MCH 29.4 MCHC 31.8 RDW Std Deviation 69.2 H Plt Count 8 L* D Neut % (Auto) 45 Lymph % (Auto) 36 [place] % (Auto) 6 Eos % (Auto) 0 Baso % (Auto) 0 Neut # (Auto) 0.4 L Lymph # (Auto) 0.3 L [place] # (Auto) 0.1 Eos # (Auto) 0.0 Baso # (Auto) 0.0 Immature Gran # (Auto) 0.10 H Absolute Nucleated RBC 0.02 H Immature Gran % 13 H Nucleated RBC % 3 H Sodium 136 Potassium 3.8 Chloride 105 Carbon Dioxide 20.5 Anion Gap 11 BUN 46 H Creatinine 2.5 H Estim Creat Clear Calc 28.6 L eGFR 28 L BUN/Creatinine Ratio 18 Glucose 153 H Calculated Osmolality 286 Calcium 7.5 L Corrected Calcium 8.4 L Iron 139 TIBC 274 Iron Saturation 50 Unsat Iron Binding 135 L Ferritin > 3300 H Total Bilirubin 0.6 AST 352 H ALT 344 H Alkaline Phosphatase 228 H D C-Reactive Prot, Quant 4.8 H Total Protein 4.9 L Albumin 2.9 L Globulin 2.0 L Albumin/Globulin Ratio 1.5 Coccidioides IgM Ab Negative Misc Test Result Platelets confirmed Blood Type A Positive Antibody Screen NEGATIVE Crossmatch See Detail Blood Bank Wristband ID Yes Blood Bank Comment PLATP Ready Quality Measures Quality Measures none Assessment & Plan Assessment Current Active Medications: Generic Name Dose Route Start Last Admin Trade Name Freq PRN Reason Stop Dose Admin Acetaminophen 650 mg 11/25/24 13:25 Acetaminophen 325 Mg Tablet PO 12/25/24 13:24 Q4HR PRN PAIN SCALE 1-3 (mild Acetaminophen 650 mg 11/25/24 13:25 Acetaminophen Supp 650 Mg Supp MD 12/25/24 13:24 Q4HR PRN PAIN SCALE 1-3 (mild Calcium Carbonate 600 mg 11/25/24 20:00 11/28/24 08:22 Calcium Carbonate 600 Mg Tablet PO 12/25/24 19:59 600 mg QDAY ARI Administration Heparin Sodium (Porcine) 5,000 unit 11/25/24 22:00 11/27/24 14:13 Heparin Sod Inj 5000 Unit/Ml Vial SC 12/09/24 21:59 Not Given Q8HR ARI Norepinephrine/Dextrose 8 mg in 250 mls @ 6.804 mls/hr 11/25/24 13:14 11/28/24 16:00 Levophed In D5w 8mg/250ml IV 12/25/24 13:13 0 mcg/kg/min .Q24H PRN 0 mls/hr PER PROTOCOL Titration Protocol 0.05 MCG/KG/MIN Piperacillin/Tazobactam/Dextrose 3.375 gm in 50 mls @ 12.5 mls/hr 11/25/24 22:00 11/28/24 14:12 Zosyn IV 12/02/24 21:59 12.5 mls/hr Q8HR ARI Administration Vasopressin/Sodium Chloride 20 unit in 100 mls @ 9 mls/hr 11/25/24 14:37 Vasostrict/Ns Ivpb IV 12/25/24 14:36 .Q11H7M PRN PER PROTOCOL Protocol 0.03 UNIT/MIN Micafungin Sodium 100 mg/ 100 mls @ 100 mls/hr 11/28/24 09:00 11/28/24 09:23 Sodium Chloride IV 12/13/24 08:59 100 mls/hr QDAY ARI Administration Magnesium Hydroxide 30 ml 11/25/24 13:25 Milk Of Magnesia Susp 30 Ml Udc PO 12/25/24 13:24 QDAY PRN CONSTIPATION Protocol Pantoprazole Sodium 40 mg 11/26/24 09:00 11/28/24 08:22 Pantoprazole 40 Mg Tablet PO 12/26/24 08:59 40 mg QDAY ARI Administration Polyethylene Glycol 17 gm 11/26/24 07:16 Polyethylene Glycol 17 Gm Packet PO 12/25/24 18:29 QDAY PRN CONSTIPATION Protocol Plan Summary: 64-year-old male with a history of 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 Admitted to ICU for management of septic shock. 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 CVS: No active issues. PULM: #History of stage IV small cell lung cancer, metastatic Diagnosed 2022 and started on chemotherapy and radiation therapy Last follow-up with oncologist November 22 2024, received chemotherapy Based on last oncology note patient had initial good response to chemotherapy, progression on carboplatin and irinotecan (2022), and current third-line therapy with Lubridactin. On November 22 2024, was considering Empower trial for immunotherapy, and possible transfer to [place] for Terlatumab treatment CT abdo/pelvis 11/28/2023 showed numerous hepatic and left adrenal lesions along with widespread bone mets RX: F/U outpatient for management of cancer (oncology, Dr. Rutledge and radiation, Dr. Ugarte) #Acute Hypoxic respiratory failure On 2L O2 RX: -Tx pneumonia -Wean O2 as tolerated NEPHRO: #Acute kidney injury Suspecting ATN, following a slow healing course Cr 2.5 (baseline around 1.3) RX: - Weaned off vasopressor today - Patient appears to have adequate urine output in spite of uptrending creatinine - Will continue to monitor renal functions, will avoid nephrotoxic medications and renal dose medications #Hypocalcemia RX - Repleted today GI: #Transaminitis, improving Likely in the setting of ischemic hepatitis from underlying septic shock T bili normal - less suspicion of bile duct obstruction Initial AST 506, ALT 555, Alk Phos 175 (could be related to bone mets) RX: - Follow LFTs with daily labs - Hepatitis panel is negative - CT abdomen/pelvis was done and did not show any significant abnormality. Gallbladder ultrasound was done and did not show any CBD obstruction. ENDO: #New onset diabetes mellitus - HbA1c 6.5% - Will recommend dietary and lifestyle modifications for now - Will recommend to follow-up PCP on outpatient basis for further treatment. - Aim for glucose of 140-180 HEME/ONC: #Pancytopenia #Neutropenic Fever #Hx of small cell lung cancer with mets to liver, bone Follows Dr. Rutledge, Dr. Ugarte Absolute neutrophil count >1000 No febrile epsisodes for past 24hrs Recieved Filgrastim 300 mcg x1 (on 11/25) - Keep ANC >[address] Rutledge - If Hgb <7 transfuse pRBC - Transfused 1u pRBC today 11/28 - Transfused 1u Plt today 11/28 ID: #Septic shock, resolved #Community acquired pneumonia? #Neutropenic fever Temperature was 101.7 on presentation WBC 1.3 Procalcitonin 10.7 LA 1.5 Chest x-ray shows early left perihilar left basilar pneumonia UA was negative for infection Last ECHO () showed diastolic dysfunction grade 1, EF 60-65% CT chest/Abdomen/pelvis did not show any significant source of infection MRSA negative RX: - Patient's central line to be removed tomorrow AM, as suspecting port-a-cath line infection at this stage - Follow cultures including port - Continue Zosyn - Added Micafungin 100mg IV qday Health Maintenance: Disposition: Admit to ICU for septic shock, neutropenic fever Diet: regular DVT prophylaxis: HOLD Heparin GI prophylaxis: Protonix 40mg qday Lines: port-a-cath CODE STATUS: FULL Patient plan of care was discussed with the Delinquency Prevention Social Worker, Dr. Reece Ruffin MD PGY-1 Attending Provider Attestation/Addendum Patient seen and examined with above resident, Blaise Ruffin MD. I agree with the findings, assessment, and plan of care as document except for any differences below. Patient continues to have vasopressor requirement suggesting inadequate source control. We did add on micafungin given low ANC. Will consult infectious disease tomorrow for additional input. Continue on GM-CSF to augment bone marrow output. Patient requiring transfusions for cell counts as needed. Patient's appetite continues to be poor reflecting the severity of his illness. Low-grade temperatures continue to be initiated as well. Patient after receiving blood products was able to be weaned off of vasopressor support. Will monitor closely in the ICU for the next 24 hours, if he remains stable that he can likely be transferred out to the medicine [facility]. Anticipate potential need for removal Port-A-Cath as this may also be an etiology of his ongoing sepsis. Adequate control for pneumonia should have been achieved with broad-spectrum antibiotics unless it is fungal and micafungin will be adequate coverage for this. Cocci serologies have been negative on this hospitalization. Patient and family updated at bedside on plan of care and are agreeable for removal of Port-A-Cath should this be deemed as the most likely source of his ongoing sepsis. Renal Carbery continues to be slow as well. Total critical care time: I personally spent 50 minutes for review of physiologic parameters, directing plan of care throughout the day, coordination of care with other specialties, and counseling patient/his brother at bedside. This is exclusive of time spent teaching of staff performing separate billable procedures. Patient remains at significant risk for further morbidity and mortality warranting close monitoring and care only available in the ICU. Critical care services for neutropenic fever/sepsis, septic shock, healthcare associated pneumonia, thrombocytopenia, acute renal failure.
[2024-11-28 18:05] LABS: Hemoglobin 7.1 g/dL (13.5-16.0); Platelet Count 26 Thou/mm3 (140-440); White Blood Count < 0.4 Thou/mm3 (3.8-10.6)
[2024-11-28 18:28] LABS: Slide Review Platelets confirmed
[2024-11-28 19:03] LABS: Vitamin B12 1409 pg/mL (211-911)
[2024-11-29] VITALS (26 sets, daily range): BP systolic 85–115; BP diastolic 53–75; PULSE 86–120; RESP 18–32; TEMP 36.4–38.8; O2SAT 93–100; BMI 28.1
[2024-11-29] MEDS: PIPER/TAZO 3.375 GM PREMIX 3.375 GM/50 ML BAG IV ×3 (05:38→21:08)
[2024-11-29 05:53] LABS: Basophils # (Auto) 0.0 Thou/mm3 (0.0-0.2); Basophils % (Auto) 0 % (0-2.5); Eosinophils # (Auto) 0.0 Thou/mm3 (0.0-0.5); Eosinophils % (Auto) 0 % (0-10); Hematocrit 22.0 % (41.0-53.0); Immature Granulocytes Auto 0.00 Thou/mm3 (0.00-0.00); Lymphocytes # (Auto) 0.2 Thou/mm3 (1.0-4.8); Lymphocytes % (Auto) 64 % (10-50); Mean Corpuscular HGB Conc 34.1 g/dl (31.0-37.0); Mean Corpuscular Hemoglobin 31.0 pg (25.0-35.0); Mean Corpuscular Volume 91 fL (80-100); Monocytes # (Auto) 0.0 Thou/mm3 (0.0-0.8); Monocytes % (Auto) 4 % (0-12); Neutrophils # (Auto) 0.1 Thou/mm3 (1.8-7.7); Neutrophils % (Auto) 32 % (37-80); Nucleated Red Blood Cell # 0.02 Thou/mm3 (0.00-0.00); Nucleated Red Blood Cell % 8 /100 WBC (0); RDW Standard Deviation 67.0 fL (35.1-43.9); Red Blood Count 2.42 Miln/mm3 (4.50-5.90)
[2024-11-29 05:58] LABS: Hemoglobin 7.5 g/dL (13.5-16.0)
[2024-11-29 06:00] LABS: Platelet Count 14 Thou/mm3 (140-440); White Blood Count < 0.4 Thou/mm3 (3.8-10.6)
[2024-11-29 06:45] LABS: Alanine Aminotransferase 259 U/L (10-49); Albumin, Serum 3.0 gm/dL (3.4-4.8); Albumin/Globulin Ratio 1.5 (1.2-2.2); Alkaline Phosphatase 283 U/L (46-116); Anion Gap 10 (7-16); Aspartate Amino Transferase 291 U/L (0-34); BUN/Creatinine Ratio 17 Ratio (12-20); Bilirubin,Total 0.7 mg/dL (0.3-1.2); Blood Urea Nitrogen 43 mg/dL (9-23); Calcium 7.9 mg/dL (8.3-10.6); Calcium (Corrected) 8.7 mg/dL (8.5-10.1); Carbon Dioxide 22.6 mMol/L (20.0-31.0); Chloride 106 mMol/L (98-107); Creatinine (Component) 2.6 mg/dL (0.6-1.3); Estimated Creatinine Clearance 27.5 mL/min (>60); Globulin 2.0 gm/dL (2.3-3.5); Glucose 93 mg/dL (74-106); Osmolality,Calculated 288 (275-295); Potassium 3.9 mMol/L (3.4-5.1); Sodium 139 mMol/L (136-145); Total Protein 5.0 gm/dL (5.7-8.2); eGFR 27 See Note
[2024-11-29 06:59] LABS: Slide Review Platelets confirmed
[2024-11-29] MEDS: FILGRASTIM 300 MCG/ML SC (07:53)
[2024-11-29] MEDS: MICAFUNGIN SODIUM INJ 100 MG in SODIUM CHLORIDE 0.9% 100 ML IV (08:13)
[2024-11-29] MEDS: CALCIUM CARBONATE 600 MG TABLET PO (08:13)
[2024-11-29] MEDS: PANTOPRAZOLE 40 MG TABLET PO (08:13)
--- NOTE | 2024-11-29 09:39 | PD.IDPROG ---
Subjective Subjective Interval history: known lung ca staged by others. Exam Vital Signs Temp Pulse Resp BP Pulse Ox O2 Del Method O2 Flow Rate 97.8 F 101 H 29 H 98/65 100 Nasal Cannula 2 11/29/24 04:00 11/29/24 06:00 11/29/24 06:00 11/29/24 06:00 11/29/24 06:00 11/28/24 19:00 11/29/24 02:09 Narrative Exam benign exam. Objective - Internal Medicine Labs 11/29/24 05:08 11/29/24 05:08 Labs: Laboratory Results - last 24 hr 11/27/24 11/28/24 11/28/24 13:05 05:30 10:02 WBC RBC Hgb Hct MCV MCH MCHC RDW Std Deviation Plt Count Neut % (Auto) Lymph % (Auto) [place] % (Auto) Eos % (Auto) Baso % (Auto) Neut # (Auto) Lymph # (Auto) [place] # (Auto) Eos # (Auto) Baso # (Auto) Immature Gran # (Auto) Absolute Nucleated RBC Immature Gran % Nucleated RBC % Sodium Potassium Chloride Carbon Dioxide Anion Gap BUN Creatinine Estim Creat Clear Calc eGFR BUN/Creatinine Ratio Glucose Calculated Osmolality Calcium Corrected Calcium Total Bilirubin AST ALT Alkaline Phosphatase C-Reactive Prot, Quant 4.8 H Total Protein Albumin Globulin Albumin/Globulin Ratio Vitamin B12 1409 H Coccidioides IgM Ab Negative Misc Test Result Blood Type A Positive Antibody Screen NEGATIVE Crossmatch See Detail Blood Bank Wristband ID Yes Blood Bank Comment PLATP Ready 11/28/24 11/29/24 16:39 05:08 WBC < 0.4 L* D < 0.4 L* RBC 2.34 L 2.42 L Hgb 7.1 L 7.5 L Hct 21.1 L* 22.0 L MCV 90 91 MCH 30.3 31.0 MCHC 33.6 34.1 RDW Std Deviation 64.3 H 67.0 H Plt Count 26 L* D 14 L* D Neut % (Auto) 39 32 L Lymph % (Auto) 46 64 H [place] % (Auto) 3 4 Eos % (Auto) 3 0 Baso % (Auto) 0 0 Neut # (Auto) 0.1 L 0.1 L Lymph # (Auto) 0.2 L 0.2 L [place] # (Auto) 0.0 0.0 Eos # (Auto) 0.0 0.0 Baso # (Auto) 0.0 0.0 Immature Gran # (Auto) 0.03 H 0.00 Absolute Nucleated RBC 0.02 H 0.02 H Immature Gran % 9 H 0 Nucleated RBC % 6 H 8 H Sodium 139 Potassium 3.9 Chloride 106 Carbon Dioxide 22.6 Anion Gap 10 BUN 43 H Creatinine 2.6 H Estim Creat Clear Calc 27.5 L eGFR 27 L BUN/Creatinine Ratio 17 Glucose 93 D Calculated Osmolality 288 Calcium 7.9 L Corrected Calcium 8.7 Total Bilirubin 0.7 AST 291 H ALT 259 H Alkaline Phosphatase 283 H D C-Reactive Prot, Quant Total Protein 5.0 L Albumin 3.0 L Globulin 2.0 L Albumin/Globulin Ratio 1.5 Vitamin B12 Coccidioides IgM Ab Misc Test Result Platelets confirmed Platelets confirmed Blood Type Antibody Screen Crossmatch Blood Bank Wristband ID Blood Bank Comment Assessment & Plan A&P Narrative advanced lung ca possible pos obstructive pneumonia neutropenic fever current empiric rx noted. counts still low. maintain zosyn/micafungin for now. will check in on fri pm. Time Spent With Patient Time: Total time spent is greater than 50% in coordination of care (as documented) at patient's floor/unit and/or counseling patient:
[2024-11-29] MEDS: RINGERS LACTATED 1000 ML 1,000 ML 999 ML IV ×2 (10:13→18:04)
--- NOTE | 2024-11-29 11:02 | ESPR_ITS ---
Subjective Subjective Interval history: seen on fri. note lost. Exam Vital Signs Temp Pulse Resp BP Pulse Ox O2 Del Method O2 Flow Rate 97.8 F 110 H 25 H 108/68 99 Nasal Cannula 3 11/29/24 08:00 11/29/24 09:01 11/29/24 09:01 11/29/24 09:01 11/29/24 09:01 11/29/24 08:00 11/29/24 08:00 Narrative Exam see dictation and other notes Objective - Internal Medicine Labs 12/01/24 00:29 12/01/24 00:29 Labs: Laboratory Results - last 24 hr 11/27/24 11/28/24 11/28/24 13:05 05:30 10:02 WBC RBC Hgb Hct MCV MCH MCHC RDW Std Deviation Plt Count Neut % (Auto) Lymph % (Auto) [place] % (Auto) Eos % (Auto) Baso % (Auto) Neut # (Auto) Lymph # (Auto) [place] # (Auto) Eos # (Auto) Baso # (Auto) Immature Gran # (Auto) Absolute Nucleated RBC Immature Gran % Nucleated RBC % Sodium Potassium Chloride Carbon Dioxide Anion Gap BUN Creatinine Estim Creat Clear Calc eGFR BUN/Creatinine Ratio Glucose Calculated Osmolality Calcium Corrected Calcium Total Bilirubin AST ALT Alkaline Phosphatase C-Reactive Prot, Quant 4.8 H Total Protein Albumin Globulin Albumin/Globulin Ratio Vitamin B12 1409 H Coccidioides IgM Ab Negative [facility] [place] Test Result Blood Type A Positive Antibody Screen NEGATIVE Crossmatch See Detail Blood Bank Wristband ID Yes Blood Bank Comment PLATP Ready 11/28/24 11/29/24 16:39 05:08 WBC < 0.4 L* D < 0.4 L* RBC 2.34 L 2.42 L Hgb 7.1 L 7.5 L Hct 21.1 L* 22.0 L MCV 90 91 MCH 30.3 31.0 MCHC 33.6 34.1 RDW Std Deviation 64.3 H 67.0 H Plt Count 26 L* D 14 L* D Neut % (Auto) 39 32 L Lymph % (Auto) 46 64 H [place] % (Auto) 3 4 Eos % (Auto) 3 0 Baso % (Auto) 0 0 Neut # (Auto) 0.1 L 0.1 L Lymph # (Auto) 0.2 L 0.2 L [place] # (Auto) 0.0 0.0 Eos # (Auto) 0.0 0.0 Baso # (Auto) 0.0 0.0 Immature Gran # (Auto) 0.03 H 0.00 Absolute Nucleated RBC 0.02 H 0.02 H Immature Gran % 9 H 0 Nucleated RBC % 6 H 8 H Sodium 139 Potassium 3.9 Chloride 106 Carbon Dioxide 22.6 Anion Gap 10 BUN 43 H Creatinine 2.6 H Estim Creat Clear Calc 27.5 L eGFR 27 L BUN/Creatinine Ratio 17 Glucose 93 D Calculated Osmolality 288 Calcium 7.9 L Corrected Calcium 8.7 Total Bilirubin 0.7 AST 291 H ALT 259 H Alkaline Phosphatase 283 H D C-Reactive Prot, Quant Total Protein 5.0 L Albumin 3.0 L Globulin 2.0 L Albumin/Globulin Ratio 1.5 Vitamin B12 Coccidioides IgM Ab Misc Test Result Platelets confirmed Platelets confirmed Blood Type Antibody Screen Crossmatch Blood Bank Wristband ID Blood Bank Comment Assessment & Plan A&P Narrative advanced lung ca possible pos obstructive pneumonia neutropenic fever current empiric rx noted. counts still low. maintain zosyn/micafungin for now. will check in on fri. I will not be here friday, so be aware of that. I will be coming friday,the holiday. Time Spent With Patient Time: Total time spent is greater than 50% in coordination of care (as documented) at patient's floor/unit and/or counseling patient:
--- NOTE | 2024-11-29 11:26 | ESPR_ITS ---
Documentation for date of: 11/29/24 Subjective Subjective Interval history: 11/26/2024: No acute overnight events. Patient denies any new complaints and reported that he is breathing well. Noted to have febrile episode this morning and treated with cooling measures. Vitals are stable on Levophed. Labs from this morning showed improvement in WBC count to 4.7, creatinine up trended to 2.3. Overnight, patient produced adequate amount of urine output. Appears to be improved clinically since yesterday. Ultrasound done at the bedside showed collapsible IVC for which patient was given 1 L of LR bolus. CT chest/abdomen/pelvis was done to rule out any source of infection but did not show any significant abnormality except for adrenal nodule and mets, mass in the left upper lobe which is the malignancy. Will continue vasopressors, midodrine, try to wean off the vasopressors. Will continue to monitor LFTs and RFT's. Will continue vancomycin and Zosyn for now. If the absolute neutrophil count goes down below thousand, we will repeat 1 more dose of Neupogen. 11/27/2024: The patient had no acute overnight events or febrile episodes. After receiving 1 L of Lactated Ringer's, the pressor requirement decreased, and the plan is to wean the patient off pressors with adequate volume resuscitation. The patient is currently on 1 L of oxygen via nasal cannula. Due to a negative MRSA swab, vancomycin was discontinued today, and the patient's calculated ANC is greater than 1000. Midodrine has been stopped, and recent blood cultures were obtained from both a port and a peripheral line. An echocardiogram with Doppler is still pending. 11/28/2024: No new acute overnight events or febrile episodes. Patient had an ANC below 1,000 and was given 300 mcg of subcutaneous filgrastim. He also received one unit of packed red blood cells and one unit of platelets today. Today's echocardiogram showed normal left ventricular size and function with an estimated ejection fraction of 50-55% and stage I diastolic dysfunction. Patient is now off vasopressor support. The source of his sepsis has not been definitively identified, but pneumonia is a possibility. He is on antibiotics but previously had a fever while on them. Given his neutropenic state, micafungin has been initiated. If the patient remains off vasopressors tomorrow, he will be transferred to the medical floor. 11/29/2024: No new acute overnight events or febrile episodes. Patient had ANC below 1000 and was given 300 mcg of subcutaneous filgrastim. Patient's last fever was yesterday at 6 PM temperature was recorded to be 100.4. Patient was given 1 L of lactated Ringer's. Patient was medically stable and was transferred to the medical floor for management of ongoing issues. Patient will likely have the Port-A-Cath removed tomorrow by Dr. Borrego, general surgeon. In preparation for that 2 platelets have been ordered which will be administered before the port removal tomorrow. Patient to be n.p.o. from midnight. Exam Vital Signs Temp Pulse Resp BP Pulse Ox O2 Del Method O2 Flow Rate 97.8 F 110 H 25 H 108/68 99 Nasal Cannula 3 11/29/24 08:00 11/29/24 09:01 11/29/24 09:01 11/29/24 09:01 11/29/24 09:01 11/29/24 08:00 11/29/24 08:00 Narrative Exam General: Awake. In no acute distress. Syriac speaking. HEENT: Normocephalic, atraumatic, mucous membranes moist. Noted port A catheter, slightly red around the catheter region Heart: Regular rate and rhythm, no murmurs. Lungs: Clear to auscultation with no wheezing or crackles. Abdomen: Soft, nondistended, nontender, positive bowel sounds. ?No guarding or rebound tenderness. Neurologic: Alert and oriented x3, no gross neurological deficit, and patient able to move all 4 extremities. Extremities: No edema. Skin: No rash or ecchymoses. 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 Admitted to ICU for management of septic shock. Patient now medically stable and ready to be transferred to the medical floor for management of ongoing issues. BIOMEDICAL EQUIPMENT SPECIALIST: No acute problems. CVS: No active issues. PULM: #History of stage IV small cell lung cancer, metastatic Diagnosed 2022 and started on chemotherapy and radiation therapy Last follow-up with oncologist November 22 2024, received chemotherapy Based on last oncology note patient had initial good response to chemotherapy, progression on carboplatin and irinotecan (2022), and current third-line therapy with Lubridactin. On November 22 2024, was considering Empower trial for immunotherapy, and possible transfer to [place] for Terlatumab treatment CT abdo/pelvis 11/28/2023 showed numerous hepatic and left adrenal lesions along with widespread bone mets RX: F/U outpatient for management of cancer (oncology, Dr. Rutledge and radiation, Dr. Ugarte) #Acute Hypoxic respiratory failure On 2L O2 RX: -Tx pneumonia -Wean O2 as tolerated NEPHRO: #Acute kidney injury Suspecting ATN, following a slow healing course Cr 2.5 (baseline around 1.3) RX: ?Patient received 1 L lactated Ringer's today - Patient appears to have adequate urine output in spite of uptrending creatinine - Will continue to monitor renal functions, will avoid nephrotoxic medications and renal dose medications GI: #Transaminitis, improving Likely in the setting of ischemic hepatitis from underlying septic shock T bili normal - less suspicion of bile duct obstruction Initial AST 506, ALT 555, Alk Phos 175 (could be related to bone mets) RX: - Follow LFTs with daily labs - Hepatitis panel is negative - CT abdomen/pelvis was done and did not show any significant abnormality. Gallbladder ultrasound was done and did not show any CBD obstruction. ENDO: #New onset diabetes mellitus - HbA1c 6.5% - Will recommend dietary and lifestyle modifications for now - Will recommend to follow-up PCP on outpatient basis for further treatment. - Aim for glucose of 140-180 HEME/ONC: #Pancytopenia #Neutropenic Fever #Hx of small cell lung cancer with mets to liver, bone Follows Dr. Rutledge, Dr. Ugarte Absolute neutrophil count >1000 fever of 100.4 yesterday Recieved Filgrastim 300 mcg x1 (on 11/25, 11/28/ 11/29) - Keep ANC >[address] Rutledge - If Hgb <7 transfuse pRBC - 2 bags of Plt ordered to tomorrow's port removal ID: #Septic shock, resolved #Community acquired pneumonia? #Neutropenic fever Temperature was 101.7 on presentation WBC 1.3 Procalcitonin 10.7 LA 1.5 Chest x-ray shows early left perihilar left basilar pneumonia UA was negative for infection Last ECHO () showed diastolic dysfunction grade 1, EF 60-65% CT chest/Abdomen/pelvis did not show any significant source of infection MRSA negative All cultures, including port, negative RX: - Infectious disease consulted, Dr. Head, follow recs - General surgery consulted, Dr Massey, for potential port removal tomorrow - Continue Zosyn - Continue Micafungin 100mg IV qday Health Maintenance: Disposition: Transferred to telemetry Diet: regular DVT prophylaxis: HOLD Heparin GI prophylaxis: Protonix 40mg qday Lines: port-a-cath CODE STATUS: FULL Patient plan of care was discussed with the Supervisor Calibration, Dr. Reece Ruffin MD PGY-1 Labs 11/30/24 06:10 11/30/24 06:10 Labs: Laboratory Results - last 24 hr 11/27/24 11/28/24 11/28/24 13:05 05:30 10:02 WBC RBC Hgb Hct MCV MCH MCHC RDW Std Deviation Plt Count Neut % (Auto) Lymph % (Auto) [place] % (Auto) Eos % (Auto) Baso % (Auto) Neut # (Auto) Lymph # (Auto) [place] # (Auto) Eos # (Auto) Baso # (Auto) Immature Gran # (Auto) Absolute Nucleated RBC Immature Gran % Nucleated RBC % Sodium Potassium Chloride Carbon Dioxide Anion Gap BUN Creatinine Estim Creat Clear Calc eGFR BUN/Creatinine Ratio Glucose Calculated Osmolality Calcium Corrected Calcium Total Bilirubin AST ALT Alkaline Phosphatase C-Reactive Prot, Quant 4.8 H Total Protein Albumin Globulin Albumin/Globulin Ratio Vitamin B12 1409 H Coccidioides IgM Ab Negative [facility] [place] Test Result Blood Type A Positive Antibody Screen NEGATIVE Crossmatch See Detail Blood Bank Wristband ID Yes Blood Bank Comment PLATP Ready 11/28/24 11/29/24 16:39 05:08 WBC < 0.4 L* D < 0.4 L* RBC 2.34 L 2.42 L Hgb 7.1 L 7.5 L Hct 21.1 L* 22.0 L MCV 90 91 MCH 30.3 31.0 MCHC 33.6 34.1 RDW Std Deviation 64.3 H 67.0 H Plt Count 26 L* D 14 L* D Neut % (Auto) 39 32 L Lymph % (Auto) 46 64 H [place] % (Auto) 3 4 Eos % (Auto) 3 0 Baso % (Auto) 0 0 Neut # (Auto) 0.1 L 0.1 L Lymph # (Auto) 0.2 L 0.2 L [place] # (Auto) 0.0 0.0 Eos # (Auto) 0.0 0.0 Baso # (Auto) 0.0 0.0 Immature Gran # (Auto) 0.03 H 0.00 Absolute Nucleated RBC 0.02 H 0.02 H Immature Gran % 9 H 0 Nucleated RBC % 6 H 8 H Sodium 139 Potassium 3.9 Chloride 106 Carbon Dioxide 22.6 Anion Gap 10 BUN 43 H Creatinine 2.6 H Estim Creat Clear Calc 27.5 L eGFR 27 L BUN/Creatinine Ratio 17 Glucose 93 D Calculated Osmolality 288 Calcium 7.9 L Corrected Calcium 8.7 Total Bilirubin 0.7 AST 291 H ALT 259 H Alkaline Phosphatase 283 H D C-Reactive Prot, Quant Total Protein 5.0 L Albumin 3.0 L Globulin 2.0 L Albumin/Globulin Ratio 1.5 Vitamin B12 Coccidioides IgM Ab Misc Test Result Platelets confirmed Platelets confirmed Blood Type Antibody Screen Crossmatch Blood Bank Wristband ID Blood Bank Comment Quality Measures Quality Measures none Assessment & Plan Assessment Current Active Medications: Generic Name Dose Route Start Last Admin Trade Name Freq PRN Reason Stop Dose Admin Acetaminophen 650 mg 11/25/24 13:25 Acetaminophen 325 Mg Tablet PO 12/25/24 13:24 Q4HR PRN PAIN SCALE 1-3 (mild Acetaminophen 650 mg 11/25/24 13:25 Acetaminophen Supp 650 Mg Supp FL 12/25/24 13:24 Q4HR PRN PAIN SCALE 1-3 (mild Calcium Carbonate 600 mg 11/25/24 20:00 11/29/24 08:13 Calcium Carbonate 600 Mg Tablet PO 12/25/24 19:59 600 mg QDAY ARI Administration Dronabinol 2.5 mg 11/29/24 09:35 11/29/24 10:13 Dronabinol 2.5 Mg Capsule PO 12/29/24 09:34 2.5 mg BIDAC ARI Administration Heparin Sodium (Porcine) 5,000 unit 11/25/24 22:00 11/27/24 14:13 Heparin Sod Inj 5000 Unit/Ml Vial SC 12/09/24 21:59 Not Given Q8HR ARI Norepinephrine/Dextrose 8 mg in 250 mls @ 6.804 mls/hr 11/25/24 13:14 11/28/24 16:00 Levophed In D5w 8mg/250ml IV 12/25/24 13:13 0 mcg/kg/min .Q24H PRN 0 mls/hr PER PROTOCOL Titration Protocol 0.05 MCG/KG/MIN Piperacillin/Tazobactam/Dextrose 3.375 gm in 50 mls @ 12.5 mls/hr 11/25/24 22:00 11/29/24 05:38 Zosyn IV 12/02/24 21:59 12.5 mls/hr Q8HR ARI Administration Vasopressin/Sodium Chloride 20 unit in 100 mls @ 9 mls/hr 11/25/24 14:37 Vasostrict/Ns Ivpb IV 12/25/24 14:36 .Q11H7M PRN PER PROTOCOL Protocol 0.03 UNIT/MIN Micafungin Sodium 100 mg/ 100 mls @ 100 mls/hr 11/28/24 09:00 11/29/24 08:13 Sodium Chloride IV 12/13/24 08:59 100 mls/hr QDAY ARI Administration Magnesium Hydroxide 30 ml 11/25/24 13:25 Milk Of Magnesia Susp 30 Ml Udc PO 12/25/24 13:24 QDAY PRN CONSTIPATION Protocol Polyethylene Glycol 17 gm 11/26/24 07:16 Polyethylene Glycol 17 Gm Packet PO 12/25/24 18:29 QDAY PRN CONSTIPATION Protocol Attending Provider Attestation/Addendum Patient seen and examined with above resident, Blaise Ruffin MD. I agree with the findings, assessment, and plan of care as document except for any differences below. Patient continues to have improved after blood product administration yesterday though cell counts continue to be inhibited likely secondary to bone marrow suppression from chemotherapy and component of sepsis. Low-grade temperature still concerning for potential lack of complete source control despite appropriate broad-spectrum antibiotics. Culture data has been negative including repeat blood cultures making port infection less likely though this is still the most likely untreated or uncontrolled definitive source at this point. Patient remains intermittently tachycardic likely due to temperature elevation from fever. Continue on broad-spectrum antibiotics along with antifungal coverage with micafungin initiated yesterday. Appreciate infectious disease input with plan for wait and watch approach. Patient will continue on GM-CSF as per recommendations of hematology with ANC below 400. Patient's energy level continues to be low but he is slowly improving and starting to eat again. Patient's family was at bedside and updated on plan of care. Patient will be transferred out to medicine [place] for ongoing management. He will remain in reverse precautions. Discussed plan of care and potential unresolved issues with medicine team to ensure smooth transition as well as appropriate close monitoring for intervention if deemed necessary. General surgery is aware of potential need for port removal and blood products including need for platelets is being coordinated just in case procedure is required later on this week. Total critical care time: I personally spent 45 minutes reviewing physiologic parameters, directing plan of care throughout the day, coordination of care with other specialist, and counseling patient/family at bedside. This is exclusive of time spent teaching on staff or performing any separate billable procedures. Patient remains at significant risk for further morbidity and mortality warranting close monitoring and care only available in the ICU. Critical care services required for neutropenic sepsis/septic shock, healthcare associated pneumonia, acute renal failure.
--- NOTE | 2024-11-29 13:14 | ESCONSULT_ITS ---
RE: JUD MAYA : 1960 DATE OF CONSULTATION: 11/29/2024 REFERRING PHYSICIAN: Dr. Newell. REASON FOR CONSULTATION: Known history of lung cancer with persistent neutropenic fevers. HISTORY OF PRESENT ILLNESS: The patient is a unfortunate 64-year-old man. He is known to have advanced cancer, which he is being considered for a move to [place] for immunotherapy. He has not responded well to his prior chemotherapy and so he may be a candidate for immunotherapy at [place]. I will defer to others in that regard. PAST MEDICAL HISTORY: His medical problems consist primarily of the cancer. PAST SURGICAL HISTORY: Limited to cancer diagnosis. ALLERGIES: NONE NOTED. IMMUNIZATIONS: As noted. FAMILY HISTORY: Unremarkable. SOCIAL HISTORY: The patient is the father of one of our residents, so he is a VIP in that regard. His smoking history is unknown. His family is not here to translate and there is nobody available for Amharic translation. ASSESSMENT: 1. Probable aggressive chemotherapy-induced neutrophilia in attempt to try to shrink the tumor. 2. Known history of cancer, not responding well to chemotherapy. RECOMMENDATIONS: It may take a while for the patient to recover. Indeed, sometimes patients do not recover despite aggressive chemotherapy, so if he worsens, please keep that in mind. I will check on him superficially again on Friday. DT: 11:06:56 TT: 11:20:00 Ref: [id number] - TID: [id number] MTDD
--- NOTE | 2024-11-29 14:21 | ESPR_ITS ---
<Statement entered by Roshan Munoz MD - 11/29/24 18:42> I have reviewed the note and agree with the resident's assessment & plan with exceptions as below. I have personally reviewed labs, imaging, home meds/prior records, examined the patient, formulated and discussed management plan with the IM team. Patient examined at bedside today. Patient being downgraded from the ICU for evaluation of neutropenic fever and sepsis without a source at this time. There is suspicion that fever and infection source is from patient's possible Chemo- Port. General surgery consulted, Dr. Massey, recommends possible removal of port, will order patient 2 units of platelets as patient's current platelets are 14,000. Repeat hematology and chemistry in AM. N.p.o. at midnight. Roshan Munoz, PGY-2 Internal Medicine Documentation for date of: 11/29/24 Subjective Subjective Interval history: ICU Summary: Patient with recent chemotherapy (11/22/2024) presented with several days of fatigue, chest heaviness, hypotension, and sepsis physiology (pancytopenia, RAMSES, transaminitis, elevated procalcitonin, suspected pneumonia). Required IV fluids, vasopressors, broad-spectrum antibiotics, and ICU admission for management of septic shock. WBC improved early on, though creatinine trended up to 2.3; CT chest/abdomen/pelvis showed known malignancy and metastases without new infection. Vasopressor requirements decreased and were discontinued; vancomycin and midodrine were stopped after negative MRSA. ANC dropped below 1,000, so filgrastim was given along with 1 unit PRBC and 1 unit platelets for low hgb/plt. Echocardiogram showed EF 50?55% with stage I diastolic dysfunction. Sepsis source remains unclear, though pneumonia is possible vs port-a-cath site; micafungin was added given neutropenia. Subjective Today on Floors: No acute events overnight. Patient seen and examined at bedside with family present. Vitals and labs reviewed. Patient states that he is doing overall okay; states he has some continued chronic back pain. Patient states he has a cough, that he is not currently nauseous, but had some nausea yesterday. Patient denies fever, headache, chest pain, shortness of breath, abdominal pain. Exam Vital Signs Temp Pulse Resp BP Pulse Ox O2 Del Method O2 Flow Rate 97.6 F 110 H 26 H 94/65 97 Nasal Cannula 2 11/29/24 13:00 11/29/24 13:00 11/29/24 13:00 11/29/24 13:00 11/29/24 13:00 11/29/24 12:00 11/29/24 12:00 Narrative Exam General: Macedonian Speaking; No acute distress; A&Ox3 Skin: Warm, dry, intact, no obvious rash. HENT: NCAT, EOMI, not icteric. External ears normal. No rhinorrhea. Moist mucous membranes Cardiovascular: R-Sided Chest Port-a-Cath; Regular rate and rhythm, no murmur, +S1/S2. Respiratory: Lungs CTAB GI: Soft, nontender, non-distended. No guarding or rebound tenderness. Extremities: no edema, no cyanosis, no clubbing. Extremity pulses present Neuro: No focal deficits observed. Conversant, moving all extremities. No overt cerebellar signs/incoordination. Psychiatric: Cooperative, appropriate affect. Objective Labs 12/02/24 04:39 12/02/24 04:39 Labs: Laboratory Results - last 24 hr 11/28/24 11/28/24 11/28/24 05:30 10:02 16:39 WBC < 0.4 L* D RBC 2.34 L Hgb 7.1 L Hct 21.1 L* MCV 90 MCH 30.3 MCHC 33.6 RDW Std Deviation 64.3 H Plt Count 26 L* D Neut % (Auto) 39 Lymph % (Auto) 46 Newton % (Auto) 3 Eos % (Auto) 3 Baso % (Auto) 0 Neut # (Auto) 0.1 L Lymph # (Auto) 0.2 L Newton # (Auto) 0.0 Eos # (Auto) 0.0 Baso # (Auto) 0.0 Immature Gran # (Auto) 0.03 H Absolute Nucleated RBC 0.02 H Immature Gran % 9 H Nucleated RBC % 6 H Sodium Potassium Chloride Carbon Dioxide Anion Gap BUN Creatinine Estim Creat Clear Calc eGFR BUN/Creatinine Ratio Glucose Calculated Osmolality Calcium Corrected Calcium Total Bilirubin AST ALT Alkaline Phosphatase C-Reactive Prot, Quant 4.8 H Total Protein Albumin Globulin Albumin/Globulin Ratio Vitamin B12 1409 H Coccidioides IgM Ab Negative Misc Test Result Platelets confirmed 11/29/24 05:08 WBC < 0.4 L* RBC 2.42 L Hgb 7.5 L Hct 22.0 L MCV 91 MCH 31.0 MCHC 34.1 RDW Std Deviation 67.0 H Plt Count 14 L* D Neut % (Auto) 32 L Lymph % (Auto) 64 H Newton % (Auto) 4 Eos % (Auto) 0 Baso % (Auto) 0 Neut # (Auto) 0.1 L Lymph # (Auto) 0.2 L Newton # (Auto) 0.0 Eos # (Auto) 0.0 Baso # (Auto) 0.0 Immature Gran # (Auto) 0.00 Absolute Nucleated RBC 0.02 H Immature Gran % 0 Nucleated RBC % 8 H Sodium 139 Potassium 3.9 Chloride 106 Carbon Dioxide 22.6 Anion Gap 10 BUN 43 H Creatinine 2.6 H Estim Creat Clear Calc 27.5 L eGFR 27 L BUN/Creatinine Ratio 17 Glucose 93 D Calculated Osmolality 288 Calcium 7.9 L Corrected Calcium 8.7 Total Bilirubin 0.7 AST 291 H ALT 259 H Alkaline Phosphatase 283 H D C-Reactive Prot, Quant Total Protein 5.0 L Albumin 3.0 L Globulin 2.0 L Albumin/Globulin Ratio 1.5 Vitamin B12 Coccidioides IgM Ab Misc Test Result Platelets confirmed Quality Measures Quality Measures none (holding heparin for low platelets) Assessment & Plan Assessment Current Active Medications: Generic Name Dose Route Start Last Admin Trade Name Freq PRN Reason Stop Dose Admin Acetaminophen 650 mg 11/25/24 13:25 Acetaminophen 325 Mg Tablet PO 12/25/24 13:24 Q4HR PRN PAIN SCALE 1-3 (mild Calcium Carbonate 600 mg 11/25/24 20:00 11/29/24 08:13 Calcium Carbonate 600 Mg Tablet PO 12/25/24 19:59 600 mg QDAY ARI Administration Dronabinol 2.5 mg 11/29/24 09:35 11/29/24 10:13 Dronabinol 2.5 Mg Capsule PO 12/29/24 09:34 2.5 mg BIDAC ARI Administration Piperacillin/Tazobactam/Dextrose 3.375 gm in 50 mls @ 12.5 mls/hr 11/25/24 22:00 11/29/24 14:12 Zosyn IV 12/02/24 21:59 12.5 mls/hr Q8HR ARI Administration Micafungin Sodium 100 mg/ 100 mls @ 100 mls/hr 11/28/24 09:00 11/29/24 08:13 Sodium Chloride IV 12/13/24 08:59 100 mls/hr QDAY ARI Administration Polyethylene Glycol 17 gm 11/26/24 07:16 Polyethylene Glycol 17 Gm Packet PO 12/25/24 18:29 QDAY PRN CONSTIPATION Protocol Plan 64-year-old male with a history of 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 Admitted to ICU for management of septic shock, found to be febrile, pancytopenic & neutropenic s/p filgrastim, 1 unit of RBC's and 1 unit Platelets, downgraded to floors; planned 2 units platelets overnight for AM port-a-cath removal. #Pancytopenia #Neutropenic Fever (ANC >1000, no fever past 24h) #Community-Acquired Pneumonia Most likely chemotherapy-induced myelosuppression vs bacterial pneumonia (supported by imaging and labs) vs possible fungal or atypical infections, especially in immunocompromised host. Continue monitoring for recurrent fever or hemodynamic instability. Repeat cultures if new fever. Consider fungal workup if not improving. Recieved Filgrastim 300 mcg x1 (on 11/25, 11/28, 11/29); Transfused 1u pRBC 11/28; Transfused 1u Platelets 11/28 Keep ANC >[address] Rutledge - On Zosyn 3.375 mg IV q8hr and Micafungin 100 mg IV q day - Transfuse pRBC if Hgb <7 g/dL; - Plan for 2 units Platelet transfusion tonight for Port-a-Cath removal - Filgrastim per oncology recommendations. - Daily CBC monitoring. Monitor for new fever or infectious symptoms. - Continue infection surveillance. #History of Stage IV Small Cell Lung Cancer, Metastatic (liver, bone, adrenal) Diagnosed 2022 and started on chemotherapy and radiation therapy Last follow-up with oncologist November 22 2024, received chemotherapy Based on last oncology note patient had initial good response to chemotherapy, progression on carboplatin and irinotecan (2022), and current third-line therapy with Lubridactin. On November 22 2024, was considering Empower trial for immunotherapy, and possible transfer to [place] for Terlatumab treatment CT abdo/pelvis 11/28/2023 showed numerous hepatic and left adrenal lesions along with widespread bone mets - Coordinate care with oncology and radiation oncology (oncology, Dr. Rutledge and radiation, Dr. Ugarte) - Surgery consulted for port-a-cath removal planned for 11/30/2024 #Acute Kidney Injury (suspected ATN, Cr 2.5, baseline ~1.3) Most likely acute tubular necrosis secondary to sepsis and hypotension. [id number] diagnosis is obstructive uropathy, which should be ruled out with imaging if clinical suspicion arises. Less likely is drug-induced nephrotoxicity; review medication list for nephrotoxic agents. Daily monitoring of renal function (creatinine, urine output). 11/29: Cr 2.6 - given 2 liters LR IV bolus's today - Continue to monitor cmp - Renal dose adjustments for all medications as indicated. - Avoid NSAIDs or other nephrotoxic drugs. #Acute Hypoxic Respiratory Failure (2L NC 99% O2), improving Most likely community-acquired pneumonia (supported by imaging and clinical presentation). Ceqi-lyi-opfe diagnosis is pulmonary embolism, given the patient's cancer history and acute hypoxia. Less likely is progression of metastatic lung cancer, as acute infectious findings predominate. Continue daily assessment of respiratory status and oxygen requirements. Monitor for clinical deterioration; consider repeat chest imaging if no improvement. D- dimer and/or CT pulmonary angiography if PE suspected. - On Zosyn 3.375 mg IV q8hr and Micafungin 100 mg IV q day - Wean supplemental oxygen as tolerated. - Monitor for signs of respiratory distress; escalate care if needed. #Transaminitis (improving; AST 506, ALT 555, Alk Phos 175) Most likely ischemic hepatitis secondary to prior septic shock. [id number] diagnosis is acute viral hepatitis, which has been ruled out by negative panel. Less likely is hepatic infiltration by metastases; CT shows lesions but no acute findings. - Daily LFTs. Monitor for jaundice or worsening liver function. - Supportive care; avoid hepatotoxic medications. No specific therapy indicated at present. #Hypocalcemia (repleted) Most likely secondary to acute illness and/or chemotherapy vs less likely tumor lysis syndrome. - Monitor calcium and electrolytes daily. - Replete calcium as needed. #New Onset Diabetes Mellitus (HbA1c 6.5%) HbA1c 6.5% - Dietary and lifestyle modifications. - Target glucose 140-180 mg/dL. - Outpatient follow-up with PCP for further management. #Septic Shock (resolved) Hospital Management: Disposition: Tele Diet: NPO after Midnight GI Prophylaxis: Stopped Protonix 40mg qday Bowel Prophylaxis: Miralax DVT Prophylaxis: HOLD Heparin CODE STATUS: Full Code Patient plan of care was discussed with the attending physician, Dr. Hogue & senior resident Dr. Alexander Lowery MD PGY-1 Attending Provider Attestation/Addendum I have discussed and was present for the essential components of the history, physical examination, diagnosis, and treatment plan with the resident. I agree with the patient's care as documented by the resident and amended herein by me. Ilia Hogue DO. Although this document has been carefully reviewed, there may still be some phonetic and other typographical errors. These errors are purely grammatical due to imperfections in the software program and should not be construed in any way to compromise the substance of the patient's medical care during this visit.
--- NOTE | 2024-11-29 16:53 | PC.SS ---
Update: Patient has been downgraded to Tele. Receiving 1L nasal cannula. P.O. feeding. No catheter in place.
--- NOTE | 2024-11-29 16:58 | PD.SURCONS ---
HPI Consult details History of present illness: 64M with stage IV small cell lung CA admitted 11/25 with fatigue and fever. Pt has been managed in the ICU for relatively low BPs, has had blood cultures drawn which are all negative so far however he continues to have fever, most recently 100.4 yesterday afternoon. General surgery is consulted for removal of chemoport as a potential source of fever PMH: Stage IV small cell lung CA PSHx: Chemoport inserted 3 years ago per pt Meds: No antiplt or anticoagulation Allergies: NKDA Review of Systems Review of Systems ROS Unobtainable: All systems reviewed & no additional complaints except as documented Meds Home Medications and Allergies Allergies Allergy/AdvReac Type Severity Reaction Status Date / Time No Known Allergies Allergy Verified 11/25/24 10:10 Exam Vital Signs Temp Pulse Resp BP Pulse Ox O2 Del Method O2 Flow Rate 97.6 F 110 H 22 H 99/68 95 Nasal Cannula 2 11/29/24 13:00 11/29/24 15:00 11/29/24 15:00 11/29/24 15:00 11/29/24 15:00 11/29/24 12:00 11/29/24 12:00 Constitutional Constitutional: no acute distress Routine Chest/Breast/Axilla Exam Comments: chemoport palpable at R upper chest, no erythema, no fluctuance or drainage Routine Respiratory Exam Respiratory: Present no resp distress Results Results: Laboratory Laboratory results: results reviewed Assessment & Plan Plan 64M with neutropenic fever in the setting of stage IV small cell lung CA. Cnc Operator team requesting removal of chemoport as possible source of fever, with negative blood cultures noted. I explained to pt and his family at bedside the risks of surgery including wound infection, bleeding (his platelets are 14,000, is planned for 2u transfusion), the possibility of ongoing fevers as well as the possibility he will eventually need the chemoport replaced. All questions were answered and pt is agreeable to proceeding
[2024-11-29 18:52] LABS: Lactate (Lactic Acid) 1.3 mMol/L (0.4-2.0)
[2024-11-29 19:42] LABS: Troponin I 0.048 ng/mL (0.0-0.045)
[2024-11-29] MEDS: ACETAMINOPHEN 325 MG TABLET 650 MG PO (23:56)
[2024-11-30] VITALS (25 sets, daily range): BP systolic 82–114; BP diastolic 49–73; PULSE 86–120; RESP 12–32; TEMP 36.4–40.4; O2SAT 92–100; BMI 29.6
[2024-11-30 00:10] LABS: Troponin I 0.051 ng/mL (0.0-0.045)
[2024-11-30] MEDS: MIDODRINE 5 MG TABLET 10 MG PO (01:13)
[2024-11-30] MEDS: PIPER/TAZO 3.375 GM PREMIX 3.375 GM/50 ML BAG IV ×3 (05:09→21:36)
[2024-11-30 06:45] LABS: Basophils # (Auto) 0.0 Thou/mm3 (0.0-0.2); Basophils % (Auto) 0 % (0-2.5); Eosinophils # (Auto) 0.0 Thou/mm3 (0.0-0.5); Eosinophils % (Auto) 0 % (0-10); Hematocrit 26.6 % (41.0-53.0); Hemoglobin 8.9 g/dL (13.5-16.0); Immature Granulocytes Auto 0.00 Thou/mm3 (0.00-0.00); Lymphocytes # (Auto) 0.2 Thou/mm3 (1.0-4.8); Lymphocytes % (Auto) 71 % (10-50); Mean Corpuscular HGB Conc 33.5 g/dl (31.0-37.0); Mean Corpuscular Hemoglobin 30.4 pg (25.0-35.0); Mean Corpuscular Volume 91 fL (80-100); Monocytes # (Auto) 0.0 Thou/mm3 (0.0-0.8); Monocytes % (Auto) 17 % (0-12); Neutrophils # (Auto) 0.0 Thou/mm3 (1.8-7.7); Neutrophils % (Auto) 13 % (37-80); Nucleated Red Blood Cell # 0.02 Thou/mm3 (0.00-0.00); Nucleated Red Blood Cell % 8 /100 WBC (0); RDW Standard Deviation 66.7 fL (35.1-43.9); Red Blood Count 2.93 Miln/mm3 (4.50-5.90)
[2024-11-30 06:46] LABS: Platelet Count 45 Thou/mm3 (140-440); White Blood Count < 0.4 Thou/mm3 (3.8-10.6)
[2024-11-30 07:09] LABS: Alanine Aminotransferase 197 U/L (10-49); Albumin, Serum 3.4 gm/dL (3.4-4.8); Albumin/Globulin Ratio 1.5 (1.2-2.2); Alkaline Phosphatase 319 U/L (46-116); Anion Gap 13 (7-16); Aspartate Amino Transferase 244 U/L (0-34); BUN/Creatinine Ratio 18 Ratio (12-20); Bilirubin,Total 0.7 mg/dL (0.3-1.2); Blood Urea Nitrogen 44 mg/dL (9-23); Calcium 7.8 mg/dL (8.3-10.6); Calcium (Corrected) 8.3 mg/dL (8.5-10.1); Carbon Dioxide 18.8 mMol/L (20.0-31.0); Chloride 107 mMol/L (98-107); Creatinine (Component) 2.4 mg/dL (0.6-1.3); Estimated Creatinine Clearance 30.4 mL/min (>60); Globulin 2.3 gm/dL (2.3-3.5); Glucose 80 mg/dL (74-106); Magnesium 1.9 mg/dL (1.6-2.6); Osmolality,Calculated 287 (275-295); Phosphorous 2.8 mg/dL (2.4-5.1); Potassium 4.3 mMol/L (3.4-5.1); Sodium 139 mMol/L (136-145); Total Protein 5.7 gm/dL (5.7-8.2); eGFR 29 See Note
--- NOTE | 2024-11-30 08:31 | SUR.PHASEI ---
0831: Pt. wakes to name then drifts back to sleep, pt hypotensive, MD Alonso made aware, no new orders given, remaining v/s stable, breathing unlabored, no complaint of pain or nausea, dressing to right upper chest has scant amount of blood, report received from MD Alonso and Sal MCNEAL.
--- NOTE | 2024-11-30 08:31 | PD.SUROPNT ---
Date of Procedure 11/30/24 Pre Op Diagnosis Persistent fever Post Op Diagnosis Same Procedure Removal of chemoport Findings Chemoport removed intact Procedure Description After discussion of risks and benefits with patient and family, patient was brought to the operating room and sedation was given. He had already received preoperative antibiotics as well as 2 units of platelets. He was prepped and draped in the usual sterile fashion. After timeout the area surrounding the right upper chest incision was infiltrated with 10 cc of 1% lidocaine plain. The skin was grasped with Adson clamps to confirm anesthesia. The pre-existing incision was then incised with a #15 blade and the subcutaneous tissue was divided with electrocautery. The catheter and port were encountered and were bluntly dissected from the surrounding skin using a hemostat. The port and catheter were removed intact. There was minimal oozing which was controlled with direct pressure. The wound was irrigated and closed in 2 layers with 2-0 Vicryl followed by 4 Monocryl. The incision was reinforced with Steri-Strips, and covered with gauze and Tegaderm. Patient was awoken and brought to PACU in stable condition Pathology / specimen Other (Chemo-Port) Estimated Blood Loss 5 Surgeon Judith Massey MD Surgical Staff Operation Date: 11/30/24 07:30 Case Staff Anesthesiologist: Johnathon Alonso
--- NOTE | 2024-11-30 09:10 | SUR.PHASEI ---
0910: Pt. AAOx4, vitals stable, breathing unlabored, no complaint of pain or nausea, dressing to right upper chest has same amount of drainage as arrival to PACU, gave report to Sandra MCNEAL prior to transfer to room.
[2024-11-30 10:10] LABS: LDH (Lactate Dehydrogenase) 676 U/L (120-246)
[2024-11-30] MEDS: CALCIUM CARBONATE 600 MG TABLET PO (10:14)
[2024-11-30] MEDS: MICAFUNGIN SODIUM INJ 100 MG in SODIUM CHLORIDE 0.9% 100 ML IV (10:17)
[2024-11-30 11:58] LABS: Cocci Serology, IgG Negative (Negative)
--- NOTE | 2024-11-30 13:46 | ESPR_ITS ---
<Statement entered by Roshan Munoz MD - 11/30/24 19:49> I have reviewed the note and agree with the resident's assessment & plan with exceptions as below. I have personally reviewed labs, imaging, home meds/prior records, examined the patient, formulated and discussed management plan with the IM team. Patient examined at bedside today. Patient did spike a fever of 102 at 1 AM. Patient to get Port-A-Cath removed by Dr. Borrego today, will also have patient have catheter culture as well. Spoke with oncology who continues to recommend giving filgrastim. Will continue with micafungin at this time. Will also add vancomycin at this time. Will put in miscellaneous nursing order which will entail to order blood cultures stat if patient spikes fever. Will also order repeat blood cultures at this time. Repeat hematology and chemistry in AM. Infectious disease on consult, appreciate recommendations. Roshan Munoz, PGY-2 Internal Medicine Documentation for date of: 11/30/24 Subjective Subjective Interval history: No acute events overnight. Patient seen and examined at bedside with present. Vitals and labs reviewed. Patient states that he feels okay, about the same as yesterday. Endorses feeling warm/feverish overnight, cough, fatigued and continued back pain. Patient also endorses feeling out of breath when he made his way to the toilet commode, but is able to breathe fine at rest. Patient denies chest pain, abdominal pain, nausea, vomiting. Exam Vital Signs Temp Pulse Resp BP Pulse Ox O2 Del Method O2 Flow Rate 98.7 F 105 H 25 H 95/65 96 Nasal Cannula 2 11/30/24 12:11/30/24 12:11/30/24 12:11/30/24 12:11/30/24 12:11/30/24 12:11/30/24 12:00 Narrative Exam General: Kiswahili Speaking; No acute distress; A&Ox3 Skin: Warm, dry, intact, no obvious rash. HENT: NCAT, EOMI, not icteric. External ears normal. No rhinorrhea. Moist mucous membranes Cardiovascular: Portacath removal site R chest; Regular rate and rhythm, no murmur, +S1/S2. Respiratory: Lungs CTAB GI: Soft, nontender, non-distended. No guarding or rebound tenderness. Extremities: no edema, no cyanosis, no clubbing. Extremity pulses present Neuro: No focal deficits observed. Conversant, moving all extremities. No overt cerebellar signs/incoordination. Psychiatric: Cooperative, appropriate affect. Objective Labs 12/01/24 00:29 12/01/24 00:29 Labs: Laboratory Results - last 24 hr 11/27/24 11/28/24 11/29/24 13:05 10:02 18:22 WBC RBC Hgb Hct MCV MCH MCHC RDW Std Deviation Plt Count Neut % (Auto) Lymph % (Auto) [place] % (Auto) Eos % (Auto) Baso % (Auto) Neut # (Auto) Lymph # (Auto) [place] # (Auto) Eos # (Auto) Baso # (Auto) Immature Gran # (Auto) Absolute Nucleated RBC Immature Gran % Nucleated RBC % Sodium Potassium Chloride Carbon Dioxide Anion Gap BUN Creatinine Estim Creat Clear Calc eGFR BUN/Creatinine Ratio Glucose Calculated Osmolality Lactic Acid 1.3 Calcium Corrected Calcium Phosphorus Magnesium Total Bilirubin AST ALT Alkaline Phosphatase Lactate Dehydrogenase Troponin I 0.048 H* Total Protein Albumin Globulin Albumin/Globulin Ratio Coccidioides IgG Ab Negative Blood Type A Positive Antibody Screen NEGATIVE Crossmatch See Detail Blood Bank Wristband ID Yes Blood Bank Comment PLATP Ready 11/29/24 11/30/24 23:30 06:10 WBC < 0.4 L* RBC 2.93 L Hgb 8.9 L Hct 26.6 L MCV 91 MCH 30.4 MCHC 33.5 RDW Std Deviation 66.7 H Plt Count 45 L D Neut % (Auto) 13 L Lymph % (Auto) 71 H [place] % (Auto) 17 H Eos % (Auto) 0 Baso % (Auto) 0 Neut # (Auto) 0.0 L Lymph # (Auto) 0.2 L [place] # (Auto) 0.0 Eos # (Auto) 0.0 Baso # (Auto) 0.0 Immature Gran # (Auto) 0.00 Absolute Nucleated RBC 0.02 H Immature Gran % 0 Nucleated RBC % 8 H Sodium 139 Potassium 4.3 Chloride 107 Carbon Dioxide 18.8 L Anion Gap 13 BUN 44 H Creatinine 2.4 H Estim Creat Clear Calc 30.4 L eGFR 29 L BUN/Creatinine Ratio 18 Glucose 80 Calculated Osmolality 287 Lactic Acid Calcium 7.8 L Corrected Calcium 8.3 L Phosphorus 2.8 Magnesium 1.9 Total Bilirubin 0.7 AST 244 H ALT 197 H Alkaline Phosphatase 319 H D Lactate Dehydrogenase 676 H Troponin I 0.051 H* Total Protein 5.7 Albumin 3.4 Globulin 2.3 Albumin/Globulin Ratio 1.5 Coccidioides IgG Ab Blood Type Antibody Screen Crossmatch Blood Bank Wristband ID Blood Bank Comment Quality Measures Quality Measures none (holding heparin for low platelets) Assessment & Plan Assessment Current Active Medications: Generic Name Dose Route Start Last Admin Trade Name Freq PRN Reason Stop Dose Admin Acetaminophen 650 mg 11/29/24 23:41 11/29/24 23:56 Acetaminophen 325 Mg Tablet PO 12/25/24 13:24 650 mg Q4HR PRN Administration Mild Pain 1-3 Or Fever > 100.4 Hydrocodone Bitart/Acetaminophen 1 tab 11/30/24 10:42 Hydrocodone/Apap 5/325 Tablet PO 12/05/24 10:41 Q6HR PRN Pain 4-7 or breakthrough pain Benzonatate 100 mg 11/30/24 10:46 Benzonatate 100 Mg Capsule PO 12/30/24 10:45 Q8HR PRN COUGH Protocol Calcium Carbonate 600 mg 11/25/24 20:00 11/30/24 10:14 Calcium Carbonate 600 Mg Tablet PO 12/25/24 19:59 600 mg QDAY ARI Administration Dronabinol 2.5 mg 11/29/24 09:35 11/30/24 10:14 Dronabinol 2.5 Mg Capsule PO 12/29/24 09:34 2.5 mg BIDAC ARI Administration Piperacillin/Tazobactam/Dextrose 3.375 gm in 50 mls @ 12.5 mls/hr 11/25/24 22:00 11/30/24 05:09 Zosyn IV 12/02/24 21:59 12.5 mls/hr Q8HR ARI Administration Micafungin Sodium 100 mg/ 100 mls @ 100 mls/hr 11/28/24 09:00 11/30/24 10:17 Sodium Chloride IV 12/13/24 08:59 100 mls/hr QDAY ARI Administration Polyethylene Glycol 17 gm 11/26/24 07:16 Polyethylene Glycol 17 Gm Packet PO 12/25/24 18:29 QDAY PRN CONSTIPATION Protocol Plan 64-year-old male with a history of 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 Admitted to ICU for management of septic shock, found to be febrile, pancytopenic & neutropenic s/p filgrastim, 1 unit of RBC's and 1 unit Platelets, downgraded to floors; planned 2 units platelets overnight for AM port-a-cath removal. #Pancytopenia #Neutropenic Fever (ANC >1000, no fever past 24h) #Community-Acquired Pneumonia Most likely chemotherapy-induced myelosuppression vs bacterial pneumonia (supported by imaging and labs) vs possible fungal or atypical infections, especially in immunocompromised host. Continue monitoring for recurrent fever or hemodynamic instability. Repeat cultures if new fever. Consider fungal workup if not improving. Recieved Filgrastim 300 mcg x1 (on 11/25, 11/28, 11/29); Transfused 1u pRBC 11/28; Transfused 1u Platelets 11/28 11/29: Given 2 units Platelet transfusion overnight; Port-a-Cath removed Dr. Rutledge following him outpatient, recommended continuing filgrastim until ANC > 1500 consistently - On Zosyn 3.375 mg IV q8hr and Micafungin 100 mg IV q day - Started Vancomycin (pharm dosed) - Ordered blood/urine cultures (11/30) along with sputum cx, gram stain & stool cx, wbc - Transfuse pRBC if Hgb <7 g/dL; - Daily CBC monitoring. Monitor for new fever or infectious symptoms. #History of Stage IV Small Cell Lung Cancer, Metastatic (liver, bone, adrenal) Diagnosed 2022 and started on chemotherapy and radiation therapy Last follow-up with oncologist November 22 2024, received chemotherapy Based on last oncology note patient had initial good response to chemotherapy, progression on carboplatin and irinotecan (2022), and current third-line therapy with Lubridactin. On November 22 2024, was considering Empower trial for immunotherapy, and possible transfer to [place] for Terlatumab treatment CT abdo/pelvis 11/28/2023 showed numerous hepatic and left adrenal lesions along with widespread bone mets - Consulted Oncology Dr. Forrester; Dr. Rutledge following him outpatient & providing recommendations (above) - Coordinate care with oncology and radiation oncology (oncology, Dr. Rutledge and radiation, Dr. Ugarte) - Surgery consulted for port-a-cath removal planned for 11/30/2024 #Acute Kidney Injury (suspected ATN, Cr 2.4, baseline ~1.3) Most likely acute tubular necrosis secondary to sepsis and hypotension. [id number] diagnosis is obstructive uropathy, which should be ruled out with imaging if clinical suspicion arises. Less likely is drug-induced nephrotoxicity; review medication list for nephrotoxic agents. Daily monitoring of renal function (creatinine, urine output). 11/30: Cr 2.4 (2.6- given 2 liters LR IV bolus's 11/29) - Continue to monitor cmp - Renal dose adjustments for all medications as indicated. - Avoid NSAIDs or other nephrotoxic drugs. #Acute Hypoxic Respiratory Failure (2L NC 99% O2), improving Most likely community-acquired pneumonia (supported by imaging and clinical presentation). [id number] diagnosis is pulmonary embolism, given the patient's cancer history and acute hypoxia. Less likely is progression of metastatic lung cancer, as acute infectious findings predominate. Continue daily assessment of respiratory status and oxygen requirements. Monitor for clinical deterioration; consider repeat chest imaging if no improvement. D- dimer and/or CT pulmonary angiography if PE suspected. - On Zosyn 3.375 mg IV q8hr and Micafungin 100 mg IV q day - Wean supplemental oxygen as tolerated. - Monitor for signs of respiratory distress; escalate care if needed. #Transaminitis (improving; AST 506, ALT 555, Alk Phos 175) Most likely ischemic hepatitis secondary to prior septic shock. Uzyq-apr-[id number] diagnosis is acute viral hepatitis, which has been ruled out by negative panel. Less likely is hepatic infiltration by metastases; CT shows lesions but no acute findings. 11/30: AST 244 (291), ALT 197 (259), Alk Phos 319 (283) - Daily LFTs. Monitor for jaundice or worsening liver function. - Supportive care; avoid hepatotoxic medications. No specific therapy indicated at present. #Hypocalcemia (repleted) Most likely secondary to acute illness and/or chemotherapy vs less likely tumor lysis syndrome. - Monitor calcium and electrolytes daily. - Replete calcium as needed. #New Onset Diabetes Mellitus (HbA1c 6.5%) HbA1c 6.5% - Dietary and lifestyle modifications. - Target glucose 140-180 mg/dL. - Outpatient follow-up with PCP for further management. #Septic Shock (resolved) Hospital Management: Disposition: Tele Diet: Low Microbial GI Prophylaxis: Stopped Protonix 40mg qday Bowel Prophylaxis: Miralax DVT Prophylaxis: HOLD Heparin CODE STATUS: Full Code Patient plan of care was discussed with the attending physician, Dr. Ro & senior resident Dr. Alexander Lowery MD PGY-1 Attending Provider Attestation/Addendum I reviewed labs, imaging, EKG, home medications and prior available records. Face to face evaluation was performed by me. I have personally examined the patient and discussed assessment and plan with the IM team. I reviewed the resident note and agree with the plan with exceptions as below. Acute febrile illness Neutropenic fever Pancytopenia Septic shock: Possibly due to left-sided pneumonia versus Port-A-Cath infection Continue vancomycin, Zosyn, and micafungin Sent another set of blood cultures Removed port a cath by general surgery Trend CBC Continue Neupogen Consulted oncology Consulted ID
[2024-11-30 14:12] LABS: Slide Review Platelets confirmed
[2024-11-30 14:25] LABS: Path Review Blood Smear Sent to Pathologist
[2024-11-30] MEDS: BENZONATATE 100 MG CAPSULE PO (14:50)
[2024-11-30] MEDS: FILGRASTIM INJ (ZARXIO) 300 MCG/0.5 ML SYRINGE SC (16:51)
[2024-11-30] MEDS: VANCOMYCIN/WATER 1GM IVPB 200 ML IV (17:59)
[2024-11-30] MEDS: ACETAMINOPHEN 325 MG TABLET 650 MG PO ×2 (20:09→21:56)
--- NOTE | 2024-11-30 21:45 | PC.NURSE ---
Pt refusing cooling measures, repeat temp shows 101.1. MD Jerry corral aware, Tylenol was given at 2008. Per MD to give another dose of Tylenol 650m and recheck temp after an hour.
--- NOTE | 2024-11-30 23:19 | PC.NURSE ---
Pt get up to the toilet, ask pt to use urinal but he refused.
[2024-12-01] VITALS (23 sets, daily range): BP systolic 82–126; BP diastolic 52–81; PULSE 83–125; RESP 14–32; TEMP 36.4–38.4; O2SAT 92–96; BMI 30.6; BMI 30.7
--- NOTE | 2024-12-01 00:23 | XR_ITS ---
Examination: AP chest single view TECHNIQUE: AP portable upright chest single view Date and time: December 01, 2024, 0033 hours, comparison November 28, 2024 INDICATIONS: Sepsis alert FINDINGS: Left perihilar left basilar pneumonia. Normal heart size Prominent osteopenia. IMPRESSION: Left perihilar left basilar pneumonia
[2024-12-01] MEDS: RINGERS LACTATED 1000 ML 1,000 ML 999 ML IV (00:31)
[2024-12-01] MEDS: ACETAMINOPHEN 325 MG TABLET 650 MG PO ×2 (00:31→09:20)
--- NOTE | 2024-12-01 00:50 | EVENTNT_ITS ---
Documentation for date of: 12/01/24 Event Note Event Note: Reason: Sepsis alert for fever and soft blood pressure Pre-Event Context: RN notified me at 22:00 yesterday of T 101?F; I advised giving Tylenol at that time. On Arrival / Vitals: * T max 104?F * MAP micky 64 mmHg * Patient awake, conversant, no acute complaints; no respiratory distress on exam. Actions Taken: * Activated sepsis alert protocol. * 1 L Lactated Ringer?s bolus given. * Tylenol 650 x1 dose administered. Diagnostics Ordered (per protocol): * Blood cultures (x2), urine culture. * CBC, CMP, lactate, procalcitonin. * UA. * Chest X-ray. * PT with INR and PTT Assessment: Febrile episode with transient soft MAP meeting sepsis alert criteria. Patient clinically stable at bedside after interventions; no focal complaints on exam. Plan / Disposition: * Continue sepsis bundle and close hemodynamic monitoring. * Trend lactate if elevated. * Follow up cultures, labs, and CXR * Notify if MAP <65 persists after fluids or clinical status worsens ----- Plan discussed with attending physician Dr. Ulysses Edwards MD PGY-1 Internal Medicine
--- NOTE | 2024-12-01 00:50 | PD.RESEVENT ---
Documentation for date of: 12/01/24 Event Note Event Note: Reason: Sepsis alert for fever and soft blood pressure Pre-Event Context: RN notified me at 22:00 yesterday of T 101?F; I advised giving Tylenol at that time. On Arrival / Vitals: T max 104?F MAP micky 64 mmHg Patient awake, conversant, no acute complaints; no respiratory distress on exam. Actions Taken: Activated sepsis alert protocol. 1 L Lactated Ringer?s bolus given. Tylenol 650 x1 dose administered. Diagnostics Ordered (per protocol): Blood cultures (x2), urine culture. CBC, CMP, lactate, procalcitonin. UA. Chest X-ray. PT with INR and PTT Assessment: Febrile episode with transient soft MAP meeting sepsis alert criteria. Patient clinically stable at bedside after interventions; no focal complaints on exam. Plan / Disposition: Continue sepsis bundle and close hemodynamic monitoring. Trend lactate if elevated. Follow up cultures, labs, and CXR Notify if MAP <65 persists after fluids or clinical status worsens ----- Plan discussed with attending physician Dr. Ulysses Edwards MD PGY-1 Internal Medicine
[2024-12-01 01:02] LABS: Lactate (Lactic Acid) 1.3 mMol/L (0.4-2.0)
[2024-12-01 01:04] LABS: Basophils # (Auto) 0.0 Thou/mm3 (0.0-0.2); Basophils % (Auto) 0 % (0-2.5); Eosinophils # (Auto) 0.0 Thou/mm3 (0.0-0.5); Eosinophils % (Auto) 0 % (0-10); Immature Granulocytes Auto 0.01 Thou/mm3 (0.00-0.00); Lymphocytes # (Auto) 0.1 Thou/mm3 (1.0-4.8); Lymphocytes % (Auto) 67 % (10-50); Mean Corpuscular HGB Conc 32.1 g/dl (31.0-37.0); Mean Corpuscular Hemoglobin 29.4 pg (25.0-35.0); Mean Corpuscular Volume 92 fL (80-100); Monocytes # (Auto) 0.0 Thou/mm3 (0.0-0.8); Monocytes % (Auto) 14 % (0-12); Neutrophils # (Auto) 0.0 Thou/mm3 (1.8-7.7); Neutrophils % (Auto) 14 % (37-80); Nucleated Red Blood Cell # 0.00 Thou/mm3 (0.00-0.00); Nucleated Red Blood Cell % 0 /100 WBC (0); RDW Standard Deviation 67.6 fL (35.1-43.9); Red Blood Count 2.14 Miln/mm3 (4.50-5.90)
[2024-12-01 01:12] LABS: White Blood Count < 0.4 Thou/mm3 (3.8-10.6)
[2024-12-01 01:15] LABS: Hematocrit 19.6 % (41.0-53.0); Hemoglobin 6.3 g/dL (13.5-16.0)
[2024-12-01 01:19] LABS: Platelet Count 29 Thou/mm3 (140-440)
[2024-12-01 01:27] LABS: INR 1.0 (0.9-1.3); Partial Thromboplastin Time 42.7 Seconds (22.0-36.0); Prothrombin Time 11.3 Seconds (9.0-12.2)
[2024-12-01 01:44] LABS: Alanine Aminotransferase 160 U/L (10-49); Albumin, Serum 2.8 gm/dL (3.4-4.8); Albumin/Globulin Ratio 1.6 (1.2-2.2); Alkaline Phosphatase 311 U/L (46-116); Anion Gap 12 (7-16); Aspartate Amino Transferase 221 U/L (0-34); BUN/Creatinine Ratio 16 Ratio (12-20); Bilirubin,Total 0.8 mg/dL (0.3-1.2); Blood Urea Nitrogen 42 mg/dL (9-23); Calcium 7.7 mg/dL (8.3-10.6); Calcium (Corrected) 8.7 mg/dL (8.5-10.1); Carbon Dioxide 21.4 mMol/L (20.0-31.0); Chloride 106 mMol/L (98-107); Creatinine (Component) 2.7 mg/dL (0.6-1.3); Estimated Creatinine Clearance 27.1 mL/min (>60); Globulin 1.8 gm/dL (2.3-3.5); Glucose 116 mg/dL (74-106); Osmolality,Calculated 289 (275-295); Potassium 3.9 mMol/L (3.4-5.1); Procalcitonin 6.98 ng/ml (0.0-0.49); Sodium 139 mMol/L (136-145); Total Protein 4.6 gm/dL (5.7-8.2); eGFR 26 See Note
[2024-12-01] MEDS: SODIUM CHLORIDE RT 10% 15 ML NEBU 5 ML INH (02:20)
[2024-12-01 02:21] LABS: Slide Review Platelets confirmed
--- NOTE | 2024-12-01 02:21 | PC.RT ---
@0221 placed pt on mask for sputum induction. Unable to collect sputum.
[2024-12-01 02:28] LABS: Alanine Aminotransferase 159 U/L (10-49); Albumin, Serum 2.7 gm/dL (3.4-4.8); Albumin/Globulin Ratio 1.4 (1.2-2.2); Alkaline Phosphatase 316 U/L (46-116); Anion Gap 10 (7-16); Aspartate Amino Transferase 221 U/L (0-34); BUN/Creatinine Ratio 14 Ratio (12-20); Bilirubin,Total 0.8 mg/dL (0.3-1.2); Blood Urea Nitrogen 37 mg/dL (9-23); Calcium 7.8 mg/dL (8.3-10.6); Calcium (Corrected) 8.8 mg/dL (8.5-10.1); Carbon Dioxide 21.7 mMol/L (20.0-31.0); Chloride 107 mMol/L (98-107); Creatinine (Component) 2.7 mg/dL (0.6-1.3); Estimated Creatinine Clearance 27.1 mL/min (>60); Globulin 1.9 gm/dL (2.3-3.5); Glucose 116 mg/dL (74-106); Magnesium 1.8 mg/dL (1.6-2.6); Osmolality,Calculated 287 (275-295); Phosphorous 3.7 mg/dL (2.4-5.1); Potassium 4.0 mMol/L (3.4-5.1); Sodium 139 mMol/L (136-145); Total Protein 4.6 gm/dL (5.7-8.2); eGFR 26 See Note
[2024-12-01 05:10] LABS: Collection Type, Urine Clean Catch; Squamous Epithelial Cell,Urine 0 /hpf (0-5)
[2024-12-01] MEDS: PIPER/TAZO 3.375 GM PREMIX 3.375 GM/50 ML BAG IV (05:19)
[2024-12-01 05:21] LABS: Amorphous Crystals,Urine Present (Absent); Bilirubin,Urine Negative (Negative); Blood,Urine 3+ (Negative); Clarity,Urine Turbid (Clear/Hazy); Color,Urine Yellow (Lt Yel-Yel); Glucose, Urine Negative (Negative); Ketones,Urine Negative (Negative); Leukocyte Esterase,Urine Negative (Negative); Nitrite,Urine Negative (Negative); PH,Urine 5.0 (5.0-7.0); Protein,Urine 1+ (Neg - Trace); RBC,Urine 921 /hpf (0-3); Specific Gravity,Urine 1.020 (1.001-1.035); Urobilinogen,Urine Negative mg/dL (0.0-1.0); WBC,Urine 1 /hpf (0-5)
[2024-12-01] MEDS: CALCIUM CARBONATE 600 MG TABLET PO (09:20)
[2024-12-01] MEDS: FILGRASTIM INJ (ZARXIO) 300 MCG/0.5 ML SYRINGE SC (09:20)
[2024-12-01] MEDS: MICAFUNGIN SODIUM INJ 100 MG in SODIUM CHLORIDE 0.9% 100 ML IV (09:21)
--- NOTE | 2024-12-01 10:29 | ESPR_ITS ---
Subjective Subjective Interval history: azithro added by primary team. counts still low. likely chemo induced Exam Vital Signs Temp Pulse Resp BP Pulse Ox O2 Del Method O2 Flow Rate 100.5 F H 116 H 32 H 118/68 93 L Nasal Cannula 2 12/01/24 09:20 12/01/24 08:00 12/01/24 08:00 12/01/24 08:00 12/01/24 08:00 12/01/24 08:00 12/01/24 08:00 Narrative Exam have to wait for counts . it can take a while. may end up with low counts on a chronic basis quinolones also effective vs atypical pneumonia if that was your rationale for the addition of zithromax Objective - Internal Medicine Labs 12/01/24 00:29 12/01/24 00:29 Labs: Laboratory Results - last 24 hr 11/27/24 11/28/24 11/30/24 13:05 10:02 06:10 WBC RBC Hgb Hct MCV MCH MCHC RDW Std Deviation Plt Count Neut % (Auto) Lymph % (Auto) [place] % (Auto) Eos % (Auto) Baso % (Auto) Neut # (Auto) Lymph # (Auto) [place] # (Auto) Eos # (Auto) Baso # (Auto) Immature Gran # (Auto) Absolute Nucleated RBC Immature Gran % Nucleated RBC % Smear Path Review Sent to Pathologist PT INR APTT Sodium Potassium Chloride Carbon Dioxide Anion Gap BUN Creatinine Estim Creat Clear Calc eGFR BUN/Creatinine Ratio Glucose Calculated Osmolality Lactic Acid Calcium Corrected Calcium Phosphorus Magnesium Total Bilirubin AST ALT Alkaline Phosphatase Total Protein Albumin Globulin Albumin/Globulin Ratio Procalcitonin Ur Collection Type Urine Color Urine Clarity Urine pH Ur Specific [place] Urine Protein Urine Glucose (UA) Urine Ketones Urine Blood Urine Nitrite Urine Bilirubin Urine Urobilinogen (Auto) Ur Leukocyte Esterase Urine RBC Urine WBC Ur Squamous Epith Cells Amorphous Crystals Urine Bacteria Coccidioides IgG Ab Negative Misc Test Result Platelets confirmed Blood Type Antibody Screen Crossmatch See Detail Blood Bank Wristband ID 12/01/24 12/01/24 12/01/24 00:29 00:29 00:29 WBC < 0.4 L* RBC 2.14 L Hgb 6.3 L* D Hct 19.6 L* MCV 92 MCH 29.4 MCHC 32.1 RDW Std Deviation 67.6 H Plt Count 29 L* D Neut % (Auto) 14 L Lymph % (Auto) 67 H [place] % (Auto) 14 H Eos % (Auto) 0 Baso % (Auto) 0 Neut # (Auto) 0.0 L Lymph # (Auto) 0.1 L [place] # (Auto) 0.0 Eos # (Auto) 0.0 Baso # (Auto) 0.0 Immature Gran # (Auto) 0.01 H Absolute Nucleated RBC 0.00 Immature Gran % 5 H Nucleated RBC % 0 Smear Path Review PT 11.3 INR 1.0 APTT 42.7 H Sodium 139 139 Potassium 4.0 3.9 Chloride 107 Carbon Dioxide Anion Gap BUN Creatinine Estim Creat Clear Calc eGFR BUN/Creatinine Ratio Glucose Calculated Osmolality Lactic Acid Calcium Corrected Calcium Phosphorus Magnesium Total Bilirubin AST ALT Alkaline Phosphatase Total Protein Albumin Globulin Albumin/Globulin Ratio Procalcitonin Ur Collection Type Urine Color Urine Clarity Urine pH Ur Specific [place] Urine Protein Urine Glucose (UA) Urine Ketones Urine Blood Urine Nitrite Urine Bilirubin Urine Urobilinogen (Auto) Ur Leukocyte Esterase Urine RBC Urine WBC Ur Squamous Epith Cells Amorphous Crystals Urine Bacteria Coccidioides IgG Ab Misc Test Result Blood Type Antibody Screen Crossprtch Blood Bank Wristband ID 12/01/24 12/01/24 12/01/24 00:29 00:29 00:29 WBC RBC Hgb Hct MCV MCH MCHC RDW Std Deviation Plt Count Neut % (Auto) Lymph % (Auto) [place] % (Auto) Eos % (Auto) Baso % (Auto) Neut # (Auto) Lymph # (Auto) [place] # (Auto) Eos # (Auto) Baso # (Auto) Immature Gran # (Auto) Absolute Nucleated RBC Immature Gran % Nucleated RBC % Smear Path Review PT INR APTT Sodium Potassium Chloride 106 Carbon Dioxide 21.7 21.4 Anion Gap 10 12 BUN 37 H Creatinine Estim Creat Clear Calc eGFR BUN/Creatinine Ratio Glucose Calculated Osmolality Lactic Acid Calcium Corrected Calcium Phosphorus Magnesium Total Bilirubin AST ALT Alkaline Phosphatase Total Protein Albumin Globulin Albumin/Globulin Ratio Procalcitonin Ur Collection Type Urine Color Urine Clarity Urine pH Ur Specific [place] Urine Protein Urine Glucose (UA) Urine Ketones Urine Blood Urine Nitrite Urine Bilirubin Urine Urobilinogen (Auto) Ur Leukocyte Esterase Urine RBC Urine WBC Ur Squamous Epith Cells Amorphous Crystals Urine Bacteria Coccidioides IgG Ab Misc Test Result Blood Type Antibody Screen Crossprtch Blood Bank Wristband ID 12/01/24 12/01/24 12/01/24 00:29 00:29 00:29 WBC RBC Hgb Hct MCV MCH MCHC RDW Std Deviation Plt Count Neut % (Auto) Lymph % (Auto) [place] % (Auto) Eos % (Auto) Baso % (Auto) Neut # (Auto) Lymph # (Auto) [place] # (Auto) Eos # (Auto) Baso # (Auto) Immature Gran # (Auto) Absolute Nucleated RBC Immature Gran % Nucleated RBC % Smear Path Review PT INR APTT Sodium Potassium Chloride Carbon Dioxide Anion Gap BUN 42 H Creatinine 2.7 H 2.7 H Estim Creat Clear Calc 27.1 L 27.1 L eGFR 26 L BUN/Creatinine Ratio Glucose Calculated Osmolality Lactic Acid Calcium Corrected Calcium Phosphorus Magnesium Total Bilirubin AST ALT Alkaline Phosphatase Total Protein Albumin Globulin Albumin/Globulin Ratio Procalcitonin Ur Collection Type Urine Color Urine Clarity Urine pH Ur Specific [place] Urine Protein Urine Glucose (UA) Urine Ketones Urine Blood Urine Nitrite Urine Bilirubin Urine Urobilinogen (Auto) Ur Leukocyte Esterase Urine RBC Urine WBC Ur Squamous Epith Cells Amorphous Crystals Urine Bacteria Coccidioides IgG Ab Misc Test Result Blood Type Antibody Screen Crossprtch Blood Bank Wristband ID 12/01/24 12/01/24 12/01/24 00: 00:29 00:29 WBC RBC Hgb Hct MCV MCH MCHC RDW Std Deviation Plt Count Neut % (Auto) Lymph % (Auto) [place] % (Auto) Eos % (Auto) Baso % (Auto) Neut # (Auto) Lymph # (Auto) [place] # (Auto) Eos # (Auto) Baso # (Auto) Immature Gran # (Auto) Absolute Nucleated RBC Immature Gran % Nucleated RBC % Smear Path Review PT INR APTT Sodium Potassium Chloride Carbon Dioxide Anion Gap BUN Creatinine Estim Creat Clear Calc eGFR 26 L BUN/Creatinine Ratio 14 16 Glucose 116 H 116 H Calculated Osmolality 287 Lactic Acid Calcium Corrected Calcium Phosphorus Magnesium Total Bilirubin AST ALT Alkaline Phosphatase Total Protein Albumin Globulin Albumin/Globulin Ratio Procalcitonin Ur Collection Type Urine Color Urine Clarity Urine pH Ur Specific [place] Urine Protein Urine Glucose (UA) Urine Ketones Urine Blood Urine Nitrite Urine Bilirubin Urine Urobilinogen (Auto) Ur Leukocyte Esterase Urine RBC Urine WBC Ur Squamous Epith Cells Amorphous Crystals Urine Bacteria Coccidioides IgG Ab Misc Test Result Blood Type Antibody Screen Crossprtch Blood Bank Wristband ID 12/01/24 12/01/24 12/01/24 00:29 00:29 00:29 WBC RBC Hgb Hct MCV MCH MCHC RDW Std Deviation Plt Count Neut % (Auto) Lymph % (Auto) [place] % (Auto) Eos % (Auto) Baso % (Auto) Neut # (Auto) Lymph # (Auto) [place] # (Auto) Eos # (Auto) Baso # (Auto) Immature Gran # (Auto) Absolute Nucleated RBC Immature Gran % Nucleated RBC % Smear Path Review PT INR APTT Sodium Potassium Chloride Carbon Dioxide Anion Gap BUN Creatinine Estim Creat Clear Calc eGFR BUN/Creatinine Ratio Glucose Calculated Osmolality 289 Lactic Acid 1.3 Calcium 7.8 L 7.7 L Corrected Calcium 8.8 8.7 Phosphorus 3.7 Magnesium 1.8 Total Bilirubin 0.8 AST ALT Alkaline Phosphatase Total Protein Albumin Globulin Albumin/Globulin Ratio Procalcitonin Ur Collection Type Urine Color Urine Clarity Urine pH Ur Specific [place] Urine Protein Urine Glucose (UA) Urine Ketones Urine Blood Urine Nitrite Urine Bilirubin Urine Urobilinogen (Auto) Ur Leukocyte Esterase Urine RBC Urine WBC Ur Squamous Epith Cells Amorphous Crystals Urine Bacteria Coccidioides IgG Ab Misc Test Result Blood Type Antibody Screen Crossprtch Blood Bank Wristband ID 12/01/24 12/01/24 12/01/24 00:29 00:29 00:29 WBC RBC Hgb Hct MCV MCH MCHC RDW Std Deviation Plt Count Neut % (Auto) Lymph % (Auto) [place] % (Auto) Eos % (Auto) Baso % (Auto) Neut # (Auto) Lymph # (Auto) [place] # (Auto) Eos # (Auto) Baso # (Auto) Immature Gran # (Auto) Absolute Nucleated RBC Immature Gran % Nucleated RBC % Smear Path Review PT INR APTT Sodium Potassium Chloride Carbon Dioxide Anion Gap BUN Creatinine Estim Creat Clear Calc eGFR BUN/Creatinine Ratio Glucose Calculated Osmolality Lactic Acid Calcium Corrected Calcium Phosphorus Magnesium Total Bilirubin 0.8 AST 221 H 221 H ALT 159 H 160 H Alkaline Phosphatase 316 H Total Protein Albumin Globulin Albumin/Globulin Ratio Procalcitonin Ur Collection Type Urine Color Urine Clarity Urine pH Ur Specific [place] Urine Protein Urine Glucose (UA) Urine Ketones Urine Blood Urine Nitrite Urine Bilirubin Urine Urobilinogen (Auto) Ur Leukocyte Esterase Urine RBC Urine WBC Ur Squamous Epith Cells Amorphous Crystals Urine Bacteria Coccidioides IgG Ab Misc Test Result Blood Type Antibody Screen Crossprtch Blood Bank Wristband ID 12/01/24 12/01/24 12/01/24 00:29 00:29 00:29 WBC RBC Hgb Hct MCV MCH MCHC RDW Std Deviation Plt Count Neut % (Auto) Lymph % (Auto) [place] % (Auto) Eos % (Auto) Baso % (Auto) Neut # (Auto) Lymph # (Auto) [place] # (Auto) Eos # (Auto) Baso # (Auto) Immature Gran # (Auto) Absolute Nucleated RBC Immature Gran % Nucleated RBC % Smear Path Review PT INR APTT Sodium Potassium Chloride Carbon Dioxide Anion Gap BUN Creatinine Estim Creat Clear Calc eGFR BUN/Creatinine Ratio Glucose Calculated Osmolality Lactic Acid Calcium Corrected Calcium Phosphorus Magnesium Total Bilirubin AST ALT Alkaline Phosphatase 311 H Total Protein 4.6 L 4.6 L Albumin 2.7 L D 2.8 L Globulin 1.9 L Albumin/Globulin Ratio Procalcitonin Ur Collection Type Urine Color Urine Clarity Urine pH Ur Specific [place] Urine Protein Urine Glucose (UA) Urine Ketones Urine Blood Urine Nitrite Urine Bilirubin Urine Urobilinogen (Auto) Ur Leukocyte Esterase Urine RBC Urine WBC Ur Squamous Epith Cells Amorphous Crystals Urine Bacteria Coccidioides IgG Ab Misc Test Result Blood Type Antibody Screen Crossmatch Blood Bank Wristband ID 12/01/24 12/01/24 12/01/24 00:29 00:29 01:52 WBC RBC Hgb Hct MCV MCH MCHC RDW Std Deviation Plt Count Neut % (Auto) Lymph % (Auto) [place] % (Auto) Eos % (Auto) Baso % (Auto) Neut # (Auto) Lymph # (Auto) [place] # (Auto) Eos # (Auto) Baso # (Auto) Immature Gran # (Auto) Absolute Nucleated RBC Immature Gran % Nucleated RBC % Smear Path Review PT INR APTT Sodium Potassium Chloride Carbon Dioxide Anion Gap BUN Creatinine Estim Creat Clear Calc eGFR BUN/Creatinine Ratio Glucose Calculated Osmolality Lactic Acid Calcium Corrected Calcium Phosphorus Magnesium Total Bilirubin AST ALT Alkaline Phosphatase Total Protein Albumin Globulin 1.8 L Albumin/Globulin Ratio 1.4 1.6 Procalcitonin 6.98 H Ur Collection Type Urine Color Urine Clarity Urine pH Ur Specific [place] Urine Protein Urine Glucose (UA) Urine Ketones Urine Blood Urine Nitrite Urine Bilirubin Urine Urobilinogen (Auto) Ur Leukocyte Esterase Urine RBC Urine WBC Ur Squamous Epith Cells Amorphous Crystals Urine Bacteria Coccidioides IgG Ab Misc Test Result Platelets confirmed Blood Type A Positive Antibody Screen NEGATIVE Crossmatch See Detail Blood Bank Wristband ID Yes 12/01/24 02:17 WBC RBC Hgb Hct MCV MCH MCHC RDW Std Deviation Plt Count Neut % (Auto) Lymph % (Auto) [place] % (Auto) Eos % (Auto) Baso % (Auto) Neut # (Auto) Lymph # (Auto) [place] # (Auto) Eos # (Auto) Baso # (Auto) Immature Gran # (Auto) Absolute Nucleated RBC Immature Gran % Nucleated RBC % Smear Path Review PT INR APTT Sodium Potassium Chloride Carbon Dioxide Anion Gap BUN Creatinine Estim Creat Clear Calc eGFR BUN/Creatinine Ratio Glucose Calculated Osmolality Lactic Acid Calcium Corrected Calcium Phosphorus Magnesium Total Bilirubin AST ALT Alkaline Phosphatase Total Protein Albumin Globulin Albumin/Globulin Ratio Procalcitonin Ur Collection Type Clean Catch Urine Color Yellow Urine Clarity Turbid A Urine pH 5.0 Ur Specific [place] 1.020 Urine Protein 1+ A Urine Glucose (UA) Negative Urine Ketones Negative Urine Blood 3+ A Urine Nitrite Negative Urine Bilirubin Negative Urine Urobilinogen (Auto) Negative Ur Leukocyte Esterase Negative Urine RBC 921 H Urine WBC 1 Ur Squamous Epith Cells 0 Amorphous Crystals Present A Urine Bacteria None Coccidioides IgG Ab Misc Test Result Blood Type Antibody Screen Crossmatch Blood Bank Wristband ID Assessment & Plan A&P Narrative advanced lung ca possible pos obstructive pneumonia neutropenic fever current empiric rx noted.will move to counts still low. I will not be here friday, so be aware of that. I will be coming friday,the holiday. I will not plan to see him again though, so if home, continue the micafungin until counts recover. same for the levaquin. or for 2 weeks at most as recovery of counts is not assured some end up with chronic marrow suppression as a result of aggressive chemotherapy. hope it works. Time Spent With Patient Time: Total time spent is greater than 50% in coordination of care (as documented) at patient's floor/unit and/or counseling patient:
--- NOTE | 2024-12-01 10:50 | ESPR_ITS ---
Documentation for date of: 12/01/24 Subjective Subjective Interval history: Overnight patient had a Sepsis alert for fever and soft blood pressure. Activated sepsis alert protocol. 1 L Lactated Ringer?s bolus given. Tylenol 650 x1 dose administered. Cultures, labs, UA, CXR and coags were ordered. This moring, Patient seen and examined at bedside with present. Vitals and labs reviewed. Patient endorses feeling feverish and having chills and having multiple small loose bowel movements. Patient denies chest pain. Exam Vital Signs Temp Pulse Resp BP Pulse Ox O2 Del Method O2 Flow Rate 100.5 F H 116 H 32 H 118/68 93 L Nasal Cannula 2 12/01/24 09:20 12/01/24 08:00 12/01/24 08:00 12/01/24 08:00 12/01/24 08:00 12/01/24 08:00 12/01/24 08:00 Narrative Exam General: [place] Speaking; mild distress; A&Ox3 Skin: Warm, dry, intact, no obvious rash. HENT: NCAT, EOMI, not icteric. External ears normal. No rhinorrhea. Moist mucous membranes Cardiovascular: Portacath removal site R chest; Regular rate and rhythm, no murmur, +S1/S2. Respiratory: Lungs CTAB GI: Soft, nontender, non-distended. No guarding or rebound tenderness. Extremities: no edema, no cyanosis, no clubbing. Extremity pulses present Neuro: No focal deficits observed. Conversant, moving all extremities. No overt cerebellar signs/incoordination. Psychiatric: Cooperative, appropriate affect. Objective Labs 12/02/24 04:39 12/02/24 04:39 Labs: Laboratory Results - last 24 hr 11/27/24 11/28/24 11/30/24 13:05 10:02 06:10 WBC RBC Hgb Hct MCV MCH MCHC RDW Std Deviation Plt Count Neut % (Auto) Lymph % (Auto) [place] % (Auto) Eos % (Auto) Baso % (Auto) Neut # (Auto) Lymph # (Auto) [place] # (Auto) Eos # (Auto) Baso # (Auto) Immature Gran # (Auto) Absolute Nucleated RBC Immature Gran % Nucleated RBC % Smear Path Review Sent to Pathologist PT INR APTT Sodium Potassium Chloride Carbon Dioxide Anion Gap BUN Creatinine Estim Creat Clear Calc eGFR BUN/Creatinine Ratio Glucose Calculated Osmolality Lactic Acid Calcium Corrected Calcium Phosphorus Magnesium Total Bilirubin AST ALT Alkaline Phosphatase Total Protein Albumin Globulin Albumin/Globulin Ratio Procalcitonin Ur Collection Type Urine Color Urine Clarity Urine pH Ur Specific Penelope Urine Protein Urine Glucose (UA) Urine Ketones Urine Blood Urine Nitrite Urine Bilirubin Urine Urobilinogen (Auto) Ur Leukocyte Esterase Urine RBC Urine WBC Ur Squamous Epith Cells Amorphous Crystals Urine Bacteria Coccidioides IgG Ab Negative Misc Test Result Platelets confirmed Blood Type Antibody Screen Crossmatch See Detail Blood Bank Wristband ID 12/01/24 12/01/24 12/01/24 00: 00:29 00:29 WBC < 0.4 L* RBC 2.14 L Hgb 6.3 L* D Hct 19.6 L* MCV 92 MCH 29.4 MCHC 32.1 RDW Std Deviation 67.6 H Plt Count 29 L* D Neut % (Auto) 14 L Lymph % (Auto) 67 H [place] % (Auto) 14 H Eos % (Auto) 0 Baso % (Auto) 0 Neut # (Auto) 0.0 L Lymph # (Auto) 0.1 L [place] # (Auto) 0.0 Eos # (Auto) 0.0 Baso # (Auto) 0.0 Immature Gran # (Auto) 0.01 H Absolute Nucleated RBC 0.00 Immature Gran % 5 H Nucleated RBC % 0 Smear Path Review PT 11.3 INR 1.0 APTT 42.7 H Sodium 139 139 Potassium 4.0 3.9 Chloride 107 Carbon Dioxide Anion Gap BUN Creatinine Estim Creat Clear Calc eGFR BUN/Creatinine Ratio Glucose Calculated Osmolality Lactic Acid Calcium Corrected Calcium Phosphorus Magnesium Total Bilirubin AST ALT Alkaline Phosphatase Total Protein Albumin Globulin Albumin/Globulin Ratio Procalcitonin Ur Collection Type Urine Color Urine Clarity Urine pH Ur Specific Penelope Urine Protein Urine Glucose (UA) Urine Ketones Urine Blood Urine Nitrite Urine Bilirubin Urine Urobilinogen (Auto) Ur Leukocyte Esterase Urine RBC Urine WBC Ur Squamous Epith Cells Amorphous Crystals Urine Bacteria Coccidioides IgG Ab Misc Test Result Blood Type Antibody Screen Crossmatch Blood Bank Wristband ID 12/01/24 12/01/24 12/01/24 00:29 00:29 00:29 WBC RBC Hgb Hct MCV MCH MCHC RDW Std Deviation Plt Count Neut % (Auto) Lymph % (Auto) [place] % (Auto) Eos % (Auto) Baso % (Auto) Neut # (Auto) Lymph # (Auto) [place] # (Auto) Eos # (Auto) Baso # (Auto) Immature Gran # (Auto) Absolute Nucleated RBC Immature Gran % Nucleated RBC % Smear Path Review PT INR APTT Sodium Potassium Chloride 106 Carbon Dioxide 21.7 21.4 Anion Gap 10 12 BUN 37 H Creatinine Estim Creat Clear Calc eGFR BUN/Creatinine Ratio Glucose Calculated Osmolality Lactic Acid Calcium Corrected Calcium Phosphorus Magnesium Total Bilirubin AST ALT Alkaline Phosphatase Total Protein Albumin Globulin Albumin/Globulin Ratio Procalcitonin Ur Collection Type Urine Color Urine Clarity Urine pH Ur Specific Penelope Urine Protein Urine Glucose (UA) Urine Ketones Urine Blood Urine Nitrite Urine Bilirubin Urine Urobilinogen (Auto) Ur Leukocyte Esterase Urine RBC Urine WBC Ur Squamous Epith Cells Amorphous Crystals Urine Bacteria Coccidioides IgG Ab Misc Test Result Blood Type Antibody Screen CrossPagerDutytch Blood [employer] [employer] Wristband ID 12/01/24 12/01/24 12/01/24 00:29 00:29 00:29 WBC RBC Hgb Hct MCV MCH MCHC RDW Std Deviation Plt Count Neut % (Auto) Lymph % (Auto) [place] % (Auto) Eos % (Auto) Baso % (Auto) Neut # (Auto) Lymph # (Auto) [place] # (Auto) Eos # (Auto) Baso # (Auto) Immature Gran # (Auto) Absolute Nucleated RBC Immature Gran % Nucleated RBC % Smear Path Review PT INR APTT Sodium Potassium Chloride Carbon Dioxide Anion Gap BUN 42 H Creatinine 2.7 H 2.7 H Estim Creat Clear Calc 27.1 L 27.1 L eGFR 26 L BUN/Creatinine Ratio Glucose Calculated Osmolality Lactic Acid Calcium Corrected Calcium Phosphorus Magnesium Total Bilirubin AST ALT Alkaline Phosphatase Total Protein Albumin Globulin Albumin/Globulin Ratio Procalcitonin Ur Collection Type Urine Color Urine Clarity Urine pH Ur Specific Penelope Urine Protein Urine Glucose (UA) Urine Ketones Urine Blood Urine Nitrite Urine Bilirubin Urine Urobilinogen (Auto) Ur Leukocyte Esterase Urine RBC Urine WBC Ur Squamous Epith Cells Amorphous Crystals Urine Bacteria Coccidioides IgG Ab Misc Test Result Blood Type Antibody Screen [facility]ytch Blood [place] [employer] Wristband ID 12/01/24 12/01/24 12/01/24 00:29 00:29 00:29 WBC RBC Hgb Hct MCV MCH MCHC RDW Std Deviation Plt Count Neut % (Auto) Lymph % (Auto) [place] % (Auto) Eos % (Auto) Baso % (Auto) Neut # (Auto) Lymph # (Auto) [place] # (Auto) Eos # (Auto) Baso # (Auto) Immature Gran # (Auto) Absolute Nucleated RBC Immature Gran % Nucleated RBC % Smear Path Review PT INR APTT Sodium Potassium Chloride Carbon Dioxide Anion Gap BUN Creatinine Estim Creat Clear Calc eGFR 26 L BUN/Creatinine Ratio 14 16 Glucose 116 H 116 H Calculated Osmolality 287 Lactic Acid Calcium Corrected Calcium Phosphorus Magnesium Total Bilirubin AST ALT Alkaline Phosphatase Total Protein Albumin Globulin Albumin/Globulin Ratio Procalcitonin Ur Collection Type Urine Color Urine Clarity Urine pH Ur Specific Penelope Urine Protein Urine Glucose (UA) Urine Ketones Urine Blood Urine Nitrite Urine Bilirubin Urine Urobilinogen (Auto) Ur Leukocyte Esterase Urine RBC Urine WBC Ur Squamous Epith Cells Amorphous Crystals Urine Bacteria Coccidioides IgG Ab Misc Test Result Blood Type Antibody Screen [employer] Blood [place] [employer] Wristband ID 12/01/24 12/01/24 12/01/24 00:29 00:29 00:29 WBC RBC Hgb Hct MCV MCH MCHC RDW Std Deviation Plt Count Neut % (Auto) Lymph % (Auto) [place] % (Auto) Eos % (Auto) Baso % (Auto) Neut # (Auto) Lymph # (Auto) [place] # (Auto) Eos # (Auto) Baso # (Auto) Immature Gran # (Auto) Absolute Nucleated RBC Immature Gran % Nucleated RBC % Smear Path Review PT INR APTT Sodium Potassium Chloride Carbon Dioxide Anion Gap BUN Creatinine Estim Creat Clear Calc eGFR BUN/Creatinine Ratio Glucose Calculated Osmolality 289 Lactic Acid 1.3 Calcium 7.8 L 7.7 L Corrected Calcium 8.8 8.7 Phosphorus 3.7 Magnesium 1.8 Total Bilirubin 0.8 AST ALT Alkaline Phosphatase Total Protein Albumin Globulin Albumin/Globulin Ratio Procalcitonin Ur Collection Type Urine Color Urine Clarity Urine pH Ur Specific Penelope Urine Protein Urine Glucose (UA) Urine Ketones Urine Blood Urine Nitrite Urine Bilirubin Urine Urobilinogen (Auto) Ur Leukocyte Esterase Urine RBC Urine WBC Ur Squamous Epith Cells Amorphous Crystals Urine Bacteria Coccidioides IgG Ab Misc Test Result Blood Type Antibody Screen [employer] Blood [place] [employer] Wristband ID 12/01/24 12/01/24 12/01/24 00:29 00:29 00:29 WBC RBC Hgb Hct MCV MCH MCHC RDW Std Deviation Plt Count Neut % (Auto) Lymph % (Auto) [place] % (Auto) Eos % (Auto) Baso % (Auto) Neut # (Auto) Lymph # (Auto) [place] # (Auto) Eos # (Auto) Baso # (Auto) Immature Gran # (Auto) Absolute Nucleated RBC Immature Gran % Nucleated RBC % Smear Path Review PT INR APTT Sodium Potassium Chloride Carbon Dioxide Anion Gap BUN Creatinine Estim Creat Clear Calc eGFR BUN/Creatinine Ratio Glucose Calculated Osmolality Lactic Acid Calcium Corrected Calcium Phosphorus Magnesium Total Bilirubin 0.8 AST 221 H 221 H ALT 159 H 160 H Alkaline Phosphatase 316 H Total Protein Albumin Globulin Albumin/Globulin Ratio Procalcitonin Ur Collection Type Urine Color Urine Clarity Urine pH Ur Specific Penelope Urine Protein Urine Glucose (UA) Urine Ketones Urine Blood Urine Nitrite Urine Bilirubin Urine Urobilinogen (Auto) Ur Leukocyte Esterase Urine RBC Urine WBC Ur Squamous Epith Cells Amorphous Crystals Urine Bacteria Coccidioides IgG Ab Misc Test Result Blood Type Antibody Screen Crossmntch Blood [place] [employer] Wristband ID 12/01/24 12/01/24 12/01/24 00:29 00:29 00:29 WBC RBC Hgb Hct MCV MCH MCHC RDW Std Deviation Plt Count Neut % (Auto) Lymph % (Auto) [place] % (Auto) Eos % (Auto) Baso % (Auto) Neut # (Auto) Lymph # (Auto) [place] # (Auto) Eos # (Auto) Baso # (Auto) Immature Gran # (Auto) Absolute Nucleated RBC Immature Gran % Nucleated RBC % Smear Path Review PT INR APTT Sodium Potassium Chloride Carbon Dioxide Anion Gap BUN Creatinine Estim Creat Clear Calc eGFR BUN/Creatinine Ratio Glucose Calculated Osmolality Lactic Acid Calcium Corrected Calcium Phosphorus Magnesium Total Bilirubin AST ALT Alkaline Phosphatase 311 H Total Protein 4.6 L 4.6 L Albumin 2.7 L D 2.8 L Globulin 1.9 L Albumin/Globulin Ratio Procalcitonin Ur Collection Type Urine Color Urine Clarity Urine pH Ur Specific [place]elope Urine Protein Urine Glucose (UA) Urine Ketones Urine Blood Urine Nitrite Urine Bilirubin Urine Urobilinogen (Auto) Ur Leukocyte Esterase Urine RBC Urine WBC Ur Squamous Epith Cells Amorphous Crystals Urine Bacteria Coccidioides IgG Ab Misc Test Result Blood Type Antibody Screen Crossmntch Blood [place] [employer] Wristband ID 12/01/24 12/01/24 12/01/24 00:29 00:29 01:52 WBC RBC Hgb Hct MCV MCH MCHC RDW Std Deviation Plt Count Neut % (Auto) Lymph % (Auto) [place] % (Auto) Eos % (Auto) Baso % (Auto) Neut # (Auto) Lymph # (Auto) [place] # (Auto) Eos # (Auto) Baso # (Auto) Immature Gran # (Auto) Absolute Nucleated RBC Immature Gran % Nucleated RBC % Smear Path Review PT INR APTT Sodium Potassium Chloride Carbon Dioxide Anion Gap BUN Creatinine Estim Creat Clear Calc eGFR BUN/Creatinine Ratio Glucose Calculated Osmolality Lactic Acid Calcium Corrected Calcium Phosphorus Magnesium Total Bilirubin AST ALT Alkaline Phosphatase Total Protein Albumin Globulin 1.8 L Albumin/Globulin Ratio 1.4 1.6 Procalcitonin 6.98 H Ur Collection Type Urine Color Urine Clarity Urine pH Ur Specific [place]elope Urine Protein Urine Glucose (UA) Urine Ketones Urine Blood Urine Nitrite Urine Bilirubin Urine Urobilinogen (Auto) Ur Leukocyte Esterase Urine RBC Urine WBC Ur Squamous Epith Cells Amorphous Crystals Urine Bacteria Coccidioides IgG Ab Misc Test Result Platelets confirmed Blood Type A Positive Antibody Screen NEGATIVE Crossmatch See Detail Blood Bank Wristband ID Yes 12/01/24 02:17 WBC RBC Hgb Hct MCV MCH MCHC RDW Std Deviation Plt Count Neut % (Auto) Lymph % (Auto) [place] % (Auto) Eos % (Auto) Baso % (Auto) Neut # (Auto) Lymph # (Auto) [place] # (Auto) Eos # (Auto) Baso # (Auto) Immature Gran # (Auto) Absolute Nucleated RBC Immature Gran % Nucleated RBC % Smear Path Review PT INR APTT Sodium Potassium Chloride Carbon Dioxide Anion Gap BUN Creatinine Estim Creat Clear Calc eGFR BUN/Creatinine Ratio Glucose Calculated Osmolality Lactic Acid Calcium Corrected Calcium Phosphorus Magnesium Total Bilirubin AST ALT Alkaline Phosphatase Total Protein Albumin Globulin Albumin/Globulin Ratio Procalcitonin Ur Collection Type Clean Catch Urine Color Yellow Urine Clarity Turbid A Urine pH 5.0 Ur Specific Penelope 1.020 Urine Protein 1+ A Urine Glucose (UA) Negative Urine Ketones Negative Urine Blood 3+ A Urine Nitrite Negative Urine Bilirubin Negative Urine Urobilinogen (Auto) Negative Ur Leukocyte Esterase Negative Urine RBC 921 H Urine WBC 1 Ur Squamous Epith Cells 0 Amorphous Crystals Present A Urine Bacteria None Coccidioides IgG Ab Misc Test Result Blood Type Antibody Screen Crossmatch Blood Bank Wristband ID Quality Measures Quality Measures none (holding heparin for low platelets) Assessment & Plan Assessment Current Active Medications: Generic Name Dose Route Start Last Admin Trade Name Freq PRN Reason Stop Dose Admin Acetaminophen 650 mg 11/29/24 23:41 12/01/24 09:20 Acetaminophen 325 Mg Tablet PO 12/25/24 13:24 650 mg Q4HR PRN Administration Mild Pain 1-3 Or Fever > 100.4 Hydrocodone Bitart/Acetaminophen 1 tab 11/30/24 10:42 Hydrocodone/Apap 5/325 Tablet PO 12/05/24 10:41 Q6HR PRN Pain 4-7 or breakthrough pain Benzonatate 100 mg 11/30/24 10:46 11/30/24 14:50 Benzonatate 100 Mg Capsule PO 12/30/24 10:45 100 mg Q8HR PRN Administration COUGH Protocol Calcium Carbonate 600 mg 11/25/24 20:00 12/01/24 09:20 Calcium Carbonate 600 Mg Tablet PO 12/25/24 19:59 600 mg QDAY ARI Administration Dronabinol 2.5 mg 11/29/24 09:35 12/01/24 09:20 Dronabinol 2.5 Mg Capsule PO 12/29/24 09:34 2.5 mg BIDAC ARI Administration Filgrastim 300 mcg 12/01/24 09:00 12/01/24 09:20 Filgrastim Inj (Zarxio) 300 Mcg/0.5 Ml Syringe SC 12/04/24 08:59 300 mcg QDAY ARI Administration Micafungin Sodium 100 mg/ 100 mls @ 100 mls/hr 11/28/24 09:00 12/01/24 09:21 Sodium Chloride IV 12/13/24 08:59 100 mls/hr QDAY ARI Administration Vancomycin HCl 200 mls @ 200 mls/hr 11/30/24 17:00 11/30/24 17:59 Vancomycin/Water 1gm Ivpb IV 12/07/24 16:59 200 mls/hr Q36H ARI Administration Levofloxacin 500 mg 12/02/24 09:00 Levofloxacin 250 Mg Tablet PO 12/09/24 08:59 QDAY ARI Pharmacy Consult 1 each 12/01/24 09:19 Vancomycin Pharmacy To Dose 1 Each Each IV 12/30/24 15:29 QDAY PRN PROTOCOL Polyethylene Glycol 17 gm 11/26/24 07:16 Polyethylene Glycol 17 Gm Packet PO 12/25/24 18:29 QDAY PRN CONSTIPATION Protocol Plan 64-year-old male with a history of 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 Admitted to ICU for management of septic shock, found to be febrile, pancytopenic & neutropenic s/p filgrastim, 1 unit of RBC's and 1 unit Platelets, downgraded to floors; planned 2 units platelets overnight for AM port-a-cath removal. #Pancytopenia #Neutropenic Fever (ANC >1000, no fever past 24h) #Community-Acquired Pneumonia Most likely chemotherapy-induced myelosuppression vs bacterial pneumonia (supported by imaging and labs) vs possible fungal or atypical infections, especially in immunocompromised host. Continue monitoring for recurrent fever or hemodynamic instability. Repeat cultures if new fever. Consider fungal workup if not improving. Recieved Filgrastim 300 mcg x1 (on 11/25, 11/28, 11/29); Transfused 1u pRBC 11/28; Transfused 1u Platelets on 11/28 11/29: Given 2 units Platelet transfusion overnight; Port-a-Cath removed Dr. Rutledge following him outpatient, recommended continuing filgrastim until ANC > 1500 consistently - Plan for central line placement today - ID consulted, appreciate recs - Started Levofloxacin 750 mg IV q48h (dc'd zosyn); continuing Micafungin 100 mg IV q day and Vancomycin (pharm dosed) - Ordered flu/covid/rsv, f/u - Ordered blood/urine cultures (11/30) along with sputum cx, gram stain & stool cx, wbc - Transfuse pRBC if Hgb <7 g/dL; - Daily CBC monitoring. Monitor for new fever or infectious symptoms. #History of Stage IV Small Cell Lung Cancer, Metastatic (liver, bone, adrenal) Diagnosed 2022 and started on chemotherapy and radiation therapy Last follow-up with oncologist November 22 2024, received chemotherapy Based on last oncology note patient had initial good response to chemotherapy, progression on carboplatin and irinotecan (2022), and current third-line therapy with Lubridactin. On November 22 2024, was considering Empower trial for immunotherapy, and possible transfer to [place] for Terlatumab treatment CT abdo/pelvis 11/28/2023 showed numerous hepatic and left adrenal lesions along with widespread bone mets Surgery consulted for port-a-cath removal planned for 11/30/2024 - Consulted Oncology Dr. Forrester; Dr. Rutledge following him outpatient & providing recommendations (above) (radiation oncology, Dr. Ugatre) #Acute Kidney Injury (suspected ATN, Cr 2.4, baseline ~1.3) Most likely acute tubular necrosis secondary to sepsis and hypotension. [id number] diagnosis is obstructive uropathy, which should be ruled out with imaging if clinical suspicion arises. Less likely is drug-induced nephrotoxicity; review medication list for nephrotoxic agents. Daily monitoring of renal function (creatinine, urine output). 11/30: Cr 2.4 (2.6- given 2 liters LR IV bolus's 11/29) - Nephrology consulted, appreciate recs - Continue to monitor cmp - Renal dose adjustments for all medications as indicated. - Avoid NSAIDs or other nephrotoxic drugs. #Acute Hypoxic Respiratory Failure (2L NC 99% O2), improving Most likely community-acquired pneumonia (supported by imaging and clinical presentation). [id number] diagnosis is pulmonary embolism, given the patient's cancer history and acute hypoxia. Less likely is progression of metastatic lung cancer, as acute infectious findings predominate. Continue daily assessment of respiratory status and oxygen requirements. Monitor for clinical deterioration; consider repeat chest imaging if no improvement. D- dimer and/or CT pulmonary angiography if PE suspected. - On Zosyn 3.375 mg IV q8hr and Micafungin 100 mg IV q day - Wean supplemental oxygen as tolerated. - Monitor for signs of respiratory distress; escalate care if needed. #Transaminitis (improving; AST 506, ALT 555, Alk Phos 175) Most likely ischemic hepatitis secondary to prior septic shock. [id number] diagnosis is acute viral hepatitis, which has been ruled out by negative panel. Less likely is hepatic infiltration by metastases; CT shows lesions but no acute findings. 11/30: AST 244 (291), ALT 197 (259), Alk Phos 319 (283) - Daily LFTs. Monitor for jaundice or worsening liver function. - Supportive care; avoid hepatotoxic medications. No specific therapy indicated at present. #Hypocalcemia (repleted) Most likely secondary to acute illness and/or chemotherapy vs less likely tumor lysis syndrome. - Monitor calcium and electrolytes daily. - Replete calcium as needed. #New Onset Diabetes Mellitus (HbA1c 6.5%) HbA1c 6.5% - Dietary and lifestyle modifications. - Target glucose 140-180 mg/dL. - Outpatient follow-up with PCP for further management. #Septic Shock (resolved) Hospital Management: Disposition: Tele Diet: Low Microbial GI Prophylaxis: Stopped Protonix 40mg qday Bowel Prophylaxis: Miralax DVT Prophylaxis: HOLD Heparin CODE STATUS: Full Code Patient plan of care was discussed with the attending physician, Dr. Jayjay Lowery MD PGY-1 Attending Provider Attestation/Addendum I reviewed labs, imaging, EKG, home medications and prior available records. Face to face evaluation was performed by me. I have personally examined the patient and discussed assessment and plan with the IM team. I reviewed the resident note and agree with the plan with exceptions as below. Acute febrile illness Neutropenic fever Pancytopenia Septic shock: Possibly due to left-sided pneumonia versus Port-A-Cath infection RAMSES, possibly intrinsic in setting of chemotherapy versus shock Source of infection is still unclear. Could be secondary to atypical pneumonia versus port A cath infection Changed antibiotics to levofloxacin and micafungin Spiked a fever overnight. Sent another set of blood cultures Removed port a cath by general surgery Trend CBC: Hemoglobin dropped status post 1 PRBC Platelet level is critical but above 10. No transfusion for now Continue Neupogen Consulted oncology Consulted ID who agreed on switching Zosyn to levofloxacin Consulted nephrology Monitor kidney function. Avoid nephrotoxins
[2024-12-01 12:52] LABS: Influenza A Ag Negative; Influenza B Ag Negative; Respiratory Syncytial Virus Ag Negative (Negative)
[2024-12-01 12:53] LABS: COVID-19 Antigen (In-House) Negative (Negative)
--- NOTE | 2024-12-01 13:27 | PD.NEPHCONS ---
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 Rutledge and Dr. Ugarte at [facility] presents to the emergency room with worsening fatigue and a feeling of heaviness in his chest for the past 4 days. His symptoms began after a chemotherapy session on November 22. He is accompanied by his brother, who is providing translation. The patient reports feeling more tired than usual since his last chemotherapy session. He has also had a cough and a subjective fever. He denies shortness of breath. He describes a feeling of heaviness in his chest. His brother notes that the patient's white blood cell count was low on both Friday and Friday before the chemotherapy was administered. The patient's brother reports that the patient was constipated after chemotherapy but has not had diarrhea. There are no sick contacts at home. Patient is not complaining of any chest pain or shortness of breath. 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 Notable labs include pancytopenia and a mild metabolic acidosis with a bicarbonate of 18.2. Kidney function is significantly impaired, as shown by a creatinine of 2.0. Liver enzymes are elevated with an AST of 506 and ALT of 555, and the alkaline phosphatase is 175. The procalcitonin is markedly elevated at 10.7. CXR confirms pneumonia. EKG shows sinus tachycardia, along with nonspecific T-wave changes. Later on the patient's condition worsened, becoming hypotensive with a blood pressure of 80/49. A second liter of IV fluids was ordered, and Levophed was initiated to support blood pressure. Once blood pressures improved-he was moved to telemetry. Creatinine started to trend up-nephrology consultation was requested for RAMSES. Patient currently seen in telemetry-in respiratory isolation room. COVID-negative. Patient admitted to hospital for septic shock management in the setting of neutropenic fever. cc:: cc: Maliha Maloney MD Review of Systems Review of Systems Narrative Review of Systems: Limited due to his mentation. He is very short of breath. Complaining of cough. Very fatigued. Past Medical History Past Medical History NEUROLOGIC: Negative Neurological Disorders, Cerebrovascular Accident, Transient Ischemic Attacks (TIA), Dementia, Alzheimer's Disease, Parkinson's Disease, Brain Tumor, Meningitis, Seizures, Epilepsy, Multiple Sclerosis, Cerebral Palsy, Amyotrophic Lateral Sclerosis (ALS/[place]'s), Guillain-[place] Syndrome, Spina Bifida, Paralysis, Peripheral Neuropathy, Navarrete's Palsy, Subdural Hematoma, Migraine, Head Trauma, Spinal Cord Injury or Traumatic Brain Injury CARDIAC: Negative Cardiac Disorders, Myocardial Infarction, Cardiac Arrhythmia, Atrial Fibrillation, Angina, Heart Murmur, Coronary Artery Disease, Atherosclerotic Heart Disease, Peripheral Vascular Disease, Hypercholesterolemia, Aneurysm, Congestive Heart Failure, Congenital Heart Disease, Valvular Heart Disease, Rheumatic Fever, Cardiomyopathy, Edema, Pericarditis, Cellulitis, Deep Vein Thrombosis, Hypertension, Hypotension or Varicose Veins RESPIRATORY: Negative Respiratory Disorders, Chronic Obstructive Pulmonary Disease (COPD), Asthma, Bronchitis, Emphysema, Pneumonia, Pulmonary Fibrosis, Cystic Fibrosis, Tuberculosis, Pulmonary Embolism, Pulmonary Edema or Sleep Apnea GASTROINTESTINAL: Negative Gastrointestinal Disorders, Hepatitis, Cirrhosis, Pancreatitis, Celiac Disease, Gall Bladder Disease, Gastrointestinal Bleed, Esophageal Varices, Sanchez's Esophagus, Colitis, Ulcerative Colitis, Diverticulitis, Diverticulosis, Ulcer, Colorectal Cancer, Irritable Bowel, Crohn's Disease, Obstructive Bowel, Hiatal Hernia, Hemorrhoids, Gastroesophageal Reflux Disease or Obesity GENITOURINARY: Negative Genitourinary Disorders, Renal Disease, Kidney Stones, Polycystic Kidney Disease, Neurogenic Bladder, Inguinal Hernia, Dialysis, Prostate Cancer or Benign Prostatic Hyperplasia REPRODUCTIVE: Negative Breast Cancer or Testicular Cancer MUSCULOSKELETAL: Negative Musculoskeletal Disorders, Muscular Dystrophy, Myasthenia Gravis, Marfan's Syndrome, Bone Cancer, Arthritis, Rheumatoid Arthritis, Osteoporosis, Gout, Scoliosis, Carpal Tunnel Syndrome, Fibromyalgia, Fractures, Degenerative Joint Disease, Osteomyelitis or Poliovirus ENT: Negative Cataracts, Glaucoma, Blind, Retinal Detachment, Macular Degeneration, Ear Infection, Deafness, Head Trauma or Eye Prosthesis ENDOCRINE: Negative Endocrine Disorders, Diabetes Mellitus Type 1, Diabetes Mellitus Type 2, Hypoglycemia, Sherwood's Syndrome, [place]'s Disease, Hyperthyroidism, Hypothyroidism, Parathyroid Disease, Pituitary Disease, Systemic Lupus Erythematosus, Syndrome of Inappropriate Antidiuretic Hormone (SIADH), Adrenal Disease or Graves' Disease HEMATOLOGIC: Negative Blood Disorders, Anemia, Leukemia, Hemophilia, Thalassemia, Sickle Cell Disease or Clotting Problems PSYCHO/SOCIAL: Negative Psychiatric Problems, Schizophrenia, Recreational Drug Use, Bipolar Disorder, Depression, Anxiety, Behavior Problems, Self-Mutilation, Attention Deficit Disorder, Attention Deficit Hyperactivity Disorder, Depression, Post Traumatic Stress Disorder or Eating Disorder OTHER HISTORY: Positive Cancer and Lung Cancer; Negative Hospitalization, Autoimmune Disease, Down Syndrome, Autism, Developmental Delay, Shingles, Falls, Blood Transfusions, Blood Transfusion Reaction, Anesthesia Reactions, Organ Transplant, Chemotherapy, Radiation Therapy, Hyperbaric Therapy, MRSA, VRSA, Vancomycin-Resistant Enterococci, Human Immunodeficiency Virus (HIV), Chicken Pox, Measles, Mumps, Rubella (Ukrainian Measles), Pertussis, Clostridium Difficile, Breast Cancer, Colorectal Cancer, Prostate Cancer or Testicular Cancer Family History FAMILY HISTORY: Positive Family Cancer; Negative Family Psychiatric Problems, Family Respiratory Disorders, Family Cardiac Disorders, Family Gastrointestinal Problems, Family Surgery or Family Anesthesia Reaction Surgical History SURGICAL: Negative Cardiac Surgery, Open Heart Surgery, Coronary Artery Bypass Graft, Valve Replacement, Vascular Surgery, Coronary Stent, Cardiac Catheterization, Pacemaker, Angiogram, Auto Implanted Cardiovert Defib, Carotid Endarterectomy, Endocrine Surgery, Thyroidectomy, Ear Surgery, Tympanostomy Tube, Eye Surgery, Nose Surgery, Oral Surgery, Tonsillectomy, Adenoidectomy, Cochlear Implant, Corneal Transplant, Throat Surgery, Abdominal Surgery, Tracheostomy, Gastric Bypass Surgery, Gastrostomy, Bowel Surgery, Nephrectomy, Transurethral Resection, Joint Replacement, Amputation, Open Reduction Internal Fixation, Arthroscopy, Neurologic Surgery, Brain Shunt, Vasectomy or Organ Transplant Social History SMOKING STATUS: Never smoker SUBSTANCE USE: does not use Meds Home Medications and Allergies Home Medications ?Medication ?Instructions ?Recorded ?Confirmed ?Type No Known Home Medications 12/01/24 12/01/24 History Allergies Allergy/AdvReac Type Severity Reaction Status Date / Time No Known Allergies Allergy Verified 11/25/24 10:10 Exam Vital Signs Temp Pulse Resp BP Pulse Ox O2 Del Method O2 Flow Rate 37.4 C 101 H 20 122/78 96 Nasal Cannula 1 12/01/24 16:00 12/01/24 18:25 12/01/24 18:25 12/01/24 16:00 12/01/24 18:25 12/01/24 16:00 12/01/24 18:25 Narrative Exam GENERAL APPEARANCE: Patient currently seen in the respiratory isolation room. Sick looking gentleman. In reverse isolation. CARDIOVASCULAR: Heart regular, no murmurs, tachycardia LUNGS/CHEST: Few rhonchi noted bilaterally with wheezing ABDOMEN: Soft, distended. No masses. Normal bowel sounds. EXTREMITIES: No edema, clubbing or cyanosis. SKIN: Skin exam normal without any rashes MUSCULOSKELETAL: In bed NEUROLOGICAL : Alert and awake Results Labs 12/02/24 04:39 12/02/24 04:39 Labs: Short CBC 12/01/24 12/01/24 Range/Units 00:29 15:11 WBC < 0.4 L* < 0.4 L* (3.8-10.6) Thou/mm3 Hgb 6.3 L* D 9.8 L D (13.5-16.0) g/dL Hct 19.6 L* 29.1 L (41.0-53.0) % Plt Count 29 L* D 15 L* D (140-440) Thou/mm3 BMP 12/01/24 12/01/24 12/01/24 00:29 00:29 00:29 Sodium 139 139 Potassium 4.0 3.9 Chloride 107 Carbon Dioxide BUN Creatinine Glucose Calcium 12/01/24 12/01/24 12/01/24 00:29 00:29 00:29 Sodium Potassium Chloride 106 Carbon Dioxide 21.7 21.4 BUN 37 H 42 H Creatinine 2.7 H Glucose Calcium 12/01/24 12/01/24 12/01/24 00:29 00:29 00:29 Sodium Potassium Chloride Carbon Dioxide BUN Creatinine 2.7 H Glucose 116 H 116 H Calcium 7.8 L 7.7 L 12/01/24 15:11 Sodium 139 Potassium 3.9 Chloride 106 Carbon Dioxide 23.5 BUN 43 H Creatinine 2.6 H Glucose 116 H Calcium 7.9 L Liver Function 12/01/24 12/01/24 12/01/24 Range/Units 00:29 00:29 00:29 Total Bilirubin 0.8 0.8 (0.3-1.2) mg/dL AST 221 H 221 H (0-34) U/L ALT 159 H (10-49) U/L Alkaline Phosphatase (46-116) U/L Albumin (3.4-4.8) gm/dL 12/01/24 12/01/24 12/01/24 Range/Units 00:29 00:29 00:29 Total Bilirubin (0.3-1.2) mg/dL AST (0-34) U/L ALT 160 H (10-49) U/L Alkaline Phosphatase 316 H 311 H (46-116) U/L Albumin 2.7 L D 2.8 L (3.4-4.8) gm/dL 12/01/24 Range/Units 15:11 Total Bilirubin 1.3 H D (0.3-1.2) mg/dL AST 210 H (0-34) U/L ALT 156 H (10-49) U/L Alkaline Phosphatase 351 H D (46-116) U/L Albumin 3.0 L (3.4-4.8) gm/dL Urine 12/01/24 Range/Units 02:17 Urine Color Yellow (Lt Yel-Yel) Urine Clarity Turbid A (Clear/Hazy) Urine pH 5.0 (5.0-7.0) Ur Specific [place] 1.020 (1.001-1.035) Urine Protein 1+ A (Neg - Trace) Urine Glucose (UA) Negative (Negative) Assessment & Plan Assessment and plan (1) RAMSES (acute kidney injury): Status: Acute Assessment and plan: RAMSES most likely related to prerenal azotemia with fluctuations in the blood pressures. His abdomen seems to be distended. Recommended to the nurse to put in a Zhao catheter and monitor urine output closely. Labs/medications reviewed. Care discussed with the brother, at bedside. (2) Septic shock: Status: Acute Assessment and plan: Patient with a septic shock, elevated white count. On pressors which was discontinued. Currently on telemetry. (3) Neutropenic fever: Status: Acute Assessment and plan: Patient with neutropenic fever. Recent chemotherapy. (4) Elevated LFTs: Status: Acute Assessment and plan: Probably from chemotherapy (5) Pneumonia: Status: Acute Assessment and plan: On broad-spectrum antibiotics (6) Pancytopenia: Status: Acute Assessment and plan: Probably from the recent chemotherapy. Might benefit from Neupogen Additional Assessment & Plan Additional Plan: Thank you Jose for allowing me to participate in the care of Mr. Garza
[2024-12-01 15:39] LABS: Lactate (Lactic Acid) 1.4 mMol/L (0.4-2.0)
[2024-12-01 15:45] LABS: Basophils # (Auto) 0.0 Thou/mm3 (0.0-0.2); Basophils % (Auto) 0 % (0-2.5); Eosinophils # (Auto) 0.0 Thou/mm3 (0.0-0.5); Eosinophils % (Auto) 0 % (0-10); Hematocrit 29.1 % (41.0-53.0); Hemoglobin 9.8 g/dL (13.5-16.0); Immature Granulocytes Auto 0.01 Thou/mm3 (0.00-0.00); Lymphocytes # (Auto) 0.1 Thou/mm3 (1.0-4.8); Lymphocytes % (Auto) 52 % (10-50); Mean Corpuscular HGB Conc 33.7 g/dl (31.0-37.0); Mean Corpuscular Hemoglobin 28.3 pg (25.0-35.0); Mean Corpuscular Volume 84 fL (80-100); Monocytes # (Auto) 0.0 Thou/mm3 (0.0-0.8); Monocytes % (Auto) 17 % (0-12); Neutrophils # (Auto) 0.1 Thou/mm3 (1.8-7.7); Neutrophils % (Auto) 26 % (37-80); Nucleated Red Blood Cell # 0.00 Thou/mm3 (0.00-0.00); Nucleated Red Blood Cell % 0 /100 WBC (0); RDW Standard Deviation 71.4 fL (35.1-43.9); Red Blood Count 3.46 Miln/mm3 (4.50-5.90)
[2024-12-01 15:47] LABS: White Blood Count < 0.4 Thou/mm3 (3.8-10.6)
[2024-12-01 15:48] LABS: Platelet Count 15 Thou/mm3 (140-440)
[2024-12-01 16:05] LABS: Alanine Aminotransferase 156 U/L (10-49); Albumin, Serum 3.0 gm/dL (3.4-4.8); Albumin/Globulin Ratio 1.4 (1.2-2.2); Alkaline Phosphatase 351 U/L (46-116); Anion Gap 10 (7-16); Aspartate Amino Transferase 210 U/L (0-34); BUN/Creatinine Ratio 17 Ratio (12-20); Bilirubin,Total 1.3 mg/dL (0.3-1.2); Blood Urea Nitrogen 43 mg/dL (9-23); Calcium 7.9 mg/dL (8.3-10.6); Calcium (Corrected) 8.7 mg/dL (8.5-10.1); Carbon Dioxide 23.5 mMol/L (20.0-31.0); Chloride 106 mMol/L (98-107); Creatinine (Component) 2.6 mg/dL (0.6-1.3); Estimated Creatinine Clearance 28.0 mL/min (>60); Globulin 2.1 gm/dL (2.3-3.5); Glucose 116 mg/dL (74-106); Osmolality,Calculated 289 (275-295); Potassium 3.9 mMol/L (3.4-5.1); Sodium 139 mMol/L (136-145); Total Protein 5.1 gm/dL (5.7-8.2); eGFR 27 See Note
[2024-12-01 16:06] LABS: Slide Review Platelets confirmed
[2024-12-01] MEDS: LEVOFLOXACIN/D5W 750MG IVPB 750 MG/150 ML BAG 100 MG IV (16:09)
--- NOTE | 2024-12-01 18:00 | XR_ITS ---
Examination: AP chest single view Technique one AP portable semiupright chest single view Date and time: December 01, 2024 1811 hrs., Comparison December 01, 2024 1223 hrs. Indications: Post central line placement. Findings: Right internal jugular central line tip right atrium Mild to moderate enlargement cardiac contour with prominent vascular congestion Bibasilar edema and/or pneumonia Prominent osteopenia Impression: Right internal jugular central line tip right atrium, no pneumothorax Mild heart failure Bibasilar edema and/or pneumonia.
--- NOTE | 2024-12-01 18:05 | PD.RESPROC ---
PROCEDURES: Procedure Date / Time 12/01/24 3223 Procedure Narrative Procedure Narrative: Attending Attestation: I was present for entire procedure. Minimal blood loss. No immediate complications. Post procedure chest film without PTX. Central Line Placement Right IJ: Indication(s): poor, or inadequate peripheral venous access Informed consent obtained: from patient Time out done, and the following verified: correct patient, side and site, procedure, patient position and implants and/or equipment Patient placed on monitor/pulse ox: Yes Hand Hygiene: scrub, soap & water and alcohol-based hand rub Max Sterile Barrier Techniques used: cap, mask, sterile gown, sterile gloves and sterile full body drape Central line prep: Chlorhexidine scrub and sterile drapes applied Local anesthesia used: lidocaine 2% Amount of anesthesia used (mL): 10 Ultrasound used for placement: Yes Sterile Technique if Ultrasound used, including sterile gel: yes Central line lumen inserted: triple Post procedure: sutured in place, good blood return, all ports aspirated, flushed, capped and sterile dressing applied Post procedure x-ray: tip of catheter in good position and no pneumothorax seen Patient tolerated procedure: well and no complications EBL(ml): 3 Complications: none
[2024-12-02] VITALS (11 sets, daily range): BP systolic 107–130; BP diastolic 69–89; PULSE 104–124; RESP 17–28; TEMP 36.6–40.2; O2SAT 90–96
[2024-12-02] MEDS: ACETAMINOPHEN IVPB 1,000 MG/100 ML VIAL 250 MG IV ×2 (00:49→17:53)
[2024-12-02 00:52] LABS: Hematocrit 27.6 % (41.0-53.0); Hemoglobin 9.4 g/dL (13.5-16.0)
--- NOTE | 2024-12-02 01:00 | PC.NURSE ---
At approximately 0000, TEST TECHNICIAN alerted nurse to elevated patient temperature of 104.4?F. Nurse assessed patient?no shivering noted; patient denied any additional symptoms or complaints. Acetaminophen 650 mg PO was administered at 0000. MD was notified at that time and gave verbal order for acetaminophen 1 g IV, MD not at bedside. IV acetaminophen was administered at 0049. Patient?s temperature decreased to 102.3?F shortly after, and later to 99.2?F. Patient remained without complaints throughout. Cooling measures (e.g., cool compresses, light bedding) continued. Care continued.
[2024-12-02] MEDS: VANCOMYCIN/WATER 1GM IVPB 200 ML IV (05:02)
[2024-12-02 06:38] LABS: Basophils # (Auto) 0.0 Thou/mm3 (0.0-0.2); Basophils % (Auto) 0 % (0-2.5); Eosinophils # (Auto) 0.0 Thou/mm3 (0.0-0.5); Eosinophils % (Auto) 0 % (0-10); Mean Corpuscular Volume 84 fL (80-100); Monocytes # (Auto) 0.1 Thou/mm3 (0.0-0.8); Nucleated Red Blood Cell # 0.00 Thou/mm3 (0.00-0.00); Nucleated Red Blood Cell % 0 /100 WBC (0)
[2024-12-02 06:40] LABS: Hemoglobin 8.9 g/dL (13.5-16.0); Lymphocytes # (Auto) 0.1 Thou/mm3 (1.0-4.8); Neutrophils # (Auto) 0.1 Thou/mm3 (1.8-7.7)
[2024-12-02 07:02] LABS: Alanine Aminotransferase 137 U/L (10-49); Albumin, Serum 2.9 gm/dL (3.4-4.8); Albumin/Globulin Ratio 1.4 (1.2-2.2); Alkaline Phosphatase 406 U/L (46-116); Anion Gap 14 (7-16); Aspartate Amino Transferase 195 U/L (0-34); BUN/Creatinine Ratio 18 Ratio (12-20); Bilirubin,Total 1.0 mg/dL (0.3-1.2); Blood Urea Nitrogen 43 mg/dL (9-23); Calcium 7.8 mg/dL (8.3-10.6); Calcium (Corrected) 8.7 mg/dL (8.5-10.1); Carbon Dioxide 20.4 mMol/L (20.0-31.0); Chloride 106 mMol/L (98-107); Creatinine (Component) 2.4 mg/dL (0.6-1.3); Estimated Creatinine Clearance 31.0 mL/min (>60); Globulin 2.1 gm/dL (2.3-3.5); Glucose 113 mg/dL (74-106); Magnesium 1.8 mg/dL (1.6-2.6); Osmolality,Calculated 291 (275-295); Phosphorous 3.4 mg/dL (2.4-5.1); Potassium 3.9 mMol/L (3.4-5.1); Sodium 140 mMol/L (136-145); Total Protein 5.0 gm/dL (5.7-8.2); eGFR 29 See Note
[2024-12-02 07:08] LABS: Hematocrit 26.8 % (41.0-53.0); Immature Granulocytes Auto 0.02 Thou/mm3 (0.00-0.00); Lymphocytes % (Auto) 40 % (10-50); Mean Corpuscular HGB Conc 33.2 g/dl (31.0-37.0); Mean Corpuscular Hemoglobin 27.9 pg (25.0-35.0); Monocytes % (Auto) 27 % (0-12); Neutrophils % (Auto) 27 % (37-80); RDW Standard Deviation 73.4 fL (35.1-43.9); Red Blood Count 3.19 Miln/mm3 (4.50-5.90); White Blood Count < 0.4 Thou/mm3 (3.8-10.6)
[2024-12-02 07:09] LABS: Platelet Count 12 Thou/mm3 (140-440)
[2024-12-02] MEDS: CALCIUM CARBONATE 600 MG TABLET PO (09:23)
[2024-12-02] MEDS: ACETAMINOPHEN 325 MG TABLET 650 MG PO ×2 (09:24)
[2024-12-02] MEDS: FILGRASTIM INJ (ZARXIO) 300 MCG/0.5 ML SYRINGE SC (09:59)
[2024-12-02] MEDS: MICAFUNGIN SODIUM INJ 100 MG in SODIUM CHLORIDE 0.9% 100 ML IV (09:59)
--- NOTE | 2024-12-02 10:25 | PD.RESPRO ---
Documentation for date of: 12/02/24 Exam Vital Signs Temp Pulse Resp BP Pulse Ox O2 Del Method O2 Flow Rate 101.8 F H 122 H 26 H 117/82 90 L Nasal Cannula 2 12/02/24 09:24 12/02/24 08:00 12/02/24 08:00 12/02/24 08:00 12/02/24 08:00 12/02/24 08:00 12/02/24 08:00 Objective Labs 12/02/24 04:39 12/02/24 04:39 Labs: Laboratory Results - last 24 hr 12/01/24 12/01/24 12/01/24 01:52 11:00 15:11 WBC < 0.4 L* RBC 3.46 L Hgb 9.8 L D Hct 29.1 L MCV 84 MCH 28.3 MCHC 33.7 RDW Std Deviation 71.4 H Plt Count 15 L* D Neut % (Auto) 26 L Lymph % (Auto) 52 H [place] % (Auto) 17 H Eos % (Auto) 0 Baso % (Auto) 0 Neut # (Auto) 0.1 L Lymph # (Auto) 0.1 L [place] # (Auto) 0.0 Eos # (Auto) 0.0 Baso # (Auto) 0.0 Immature Gran # (Auto) 0.01 H Absolute Nucleated RBC 0.00 Immature Gran % 4 H Nucleated RBC % 0 Sodium 139 Potassium 3.9 Chloride 106 Carbon Dioxide 23.5 Anion Gap 10 BUN 43 H Creatinine 2.6 H Estim Creat Clear Calc 28.0 L eGFR 27 L BUN/Creatinine Ratio 17 Glucose 116 H Calculated Osmolality 289 Lactic Acid 1.4 Calcium 7.9 L Corrected Calcium 8.7 Phosphorus Magnesium Total Bilirubin 1.3 H D AST 210 H ALT 156 H Alkaline Phosphatase 351 H D Total Protein 5.1 L Albumin 3.0 L Globulin 2.1 L Albumin/Globulin Ratio 1.4 Influenza A (Rapid) Negative Influenza B (Rapid) Negative RSV Rapid Negative SARS-CoV-2 Ag (Rapid) Negative Misc Test Result Platelets confirmed Blood Type A Positive Antibody Screen NEGATIVE Crossmatch See Detail Blood Bank Wristband ID Yes 12/02/24 12/02/24 00:20 04:39 WBC < 0.4 L* RBC 3.19 L Hgb 9.4 L 8.9 L Hct 27.6 L 26.8 L MCV 84 MCH 27.9 MCHC 33.2 RDW Std Deviation 73.4 H Plt Count 12 L* Neut % (Auto) 27 L Lymph % (Auto) 40 [place] % (Auto) 27 H Eos % (Auto) 0 Baso % (Auto) 0 Neut # (Auto) 0.1 L Lymph # (Auto) 0.1 L [place] # (Auto) 0.1 Eos # (Auto) 0.0 Baso # (Auto) 0.0 Immature Gran # (Auto) 0.02 H Absolute Nucleated RBC 0.00 Immature Gran % 7 H Nucleated RBC % 0 Sodium 140 Potassium 3.9 Chloride 106 Carbon Dioxide 20.4 Anion Gap 14 BUN 43 H Creatinine 2.4 H Estim Creat Clear Calc 31.0 L eGFR 29 L BUN/Creatinine Ratio 18 Glucose 113 H Calculated Osmolality 291 Lactic Acid Calcium 7.8 L Corrected Calcium 8.7 Phosphorus 3.4 Magnesium 1.8 Total Bilirubin 1.0 AST 195 H ALT 137 H Alkaline Phosphatase 406 H D Total Protein 5.0 L Albumin 2.9 L Globulin 2.1 L Albumin/Globulin Ratio 1.4 Influenza A (Rapid) Influenza B (Rapid) RSV Rapid SARS-CoV-2 Ag (Rapid) Misc Test Result Blood Type Antibody Screen Crossmatch Blood Bank Wristband ID Quality Measures Quality Measures none (holding heparin for low platelets) Assessment & Plan Assessment Current Active Medications: Generic Name Dose Route Start Last Admin Trade Name Freq PRN Reason Stop Dose Admin Acetaminophen 650 mg 11/29/24 23:41 12/02/24 09:24 Acetaminophen 325 Mg Tablet PO 12/25/24 13:24 650 mg Q4HR PRN Administration Mild Pain 1-3 Or Fever > 100.4 Hydrocodone Bitart/Acetaminophen 1 tab 11/30/24 10:42 Hydrocodone/Apap 5/325 Tablet PO 12/05/24 10:41 Q6HR PRN Pain 4-7 or breakthrough pain Benzonatate 100 mg 11/30/24 10:46 11/30/24 14:50 Benzonatate 100 Mg Capsule PO 12/30/24 10:45 100 mg Q8HR PRN Administration COUGH Protocol Calcium Carbonate 600 mg 11/25/24 20:00 12/02/24 09:23 Calcium Carbonate 600 Mg Tablet PO 12/25/24 19:59 600 mg QDAY ARI Administration Dronabinol 2.5 mg 11/29/24 09:35 12/02/24 09:23 Dronabinol 2.5 Mg Capsule PO 12/29/24 09:34 2.5 mg BIDAC ARI Administration Filgrastim 300 mcg 12/01/24 09:00 12/02/24 09:59 Filgrastim Inj (Zarxio) 300 Mcg/0.5 Ml Syringe SC 12/04/24 08:59 300 mcg QDAY ARI Administration Micafungin Sodium 100 mg/ 100 mls @ 100 mls/hr 11/28/24 09:00 12/02/24 09:59 Sodium Chloride IV 12/13/24 08:59 100 mls/hr QDAY ARI Administration Vancomycin HCl 200 mls @ 200 mls/hr 11/30/24 17:00 12/02/24 05:02 Vancomycin/Water 1gm Ivpb IV 12/07/24 16:59 200 mls/hr Q36H ARI Administration Levofloxacin/Dextrose 750 mg in 150 mls @ 100 mls/hr 12/01/24 15:00 12/01/24 16:09 Levaquin Ivpb IV 12/08/24 14:59 100 mls/hr Q48H ARI Administration Protocol Pharmacy Consult 1 each 12/01/24 09:19 Vancomycin Pharmacy To Dose 1 Each Each IV 12/30/24 15:29 QDAY PRN PROTOCOL Polyethylene Glycol 17 gm 11/26/24 07:16 Polyethylene Glycol 17 Gm Packet PO 12/25/24 18:29 QDAY PRN CONSTIPATION Protocol
[2024-12-02] MEDS: DEXTROSE 5%-LACTATED RINGERS 1,000 ML 125 ML IV (12:16)
--- NOTE | 2024-12-02 12:30 | PD.SURPROG ---
Documentation for date of: 12/02/24 Subjective Subjective Brief History: 64M with stage IV small cell lung CA admitted 11/25 with fatigue and fever. Pt has been managed in the ICU for relatively low BPs, has had blood cultures drawn which are all negative so far however he continues to have fever, most recently 100.4 yesterday afternoon. General surgery is consulted for removal of chemoport as a potential source of fever PMH: Stage IV small cell lung CA PSHx: Chemoport inserted 3 years ago per pt Meds: No antiplt or anticoagulation Allergies: NKDA Narrative: Pt continuing to spike fever, no acute events today Exam Vital Signs Temp Pulse Resp BP Pulse Ox O2 Del Method O2 Flow Rate 101 F H 122 H 26 H 117/82 90 L Nasal Cannula 2 12/02/24 12:13 12/02/24 08:00 12/02/24 08:00 12/02/24 08:00 12/02/24 08:00 12/02/24 08:00 12/02/24 08:00 Constitutional Constitutional: no acute distress Routine Chest/Breast/Axilla Exam Comments: R upper chest tegaderm removed, incision c/d/i with steri strips in place Routine Respiratory Exam Respiratory: Present no resp distress Results Results: Laboratory Laboratory results: results reviewed Assessment & Plan Plan 64M with neutropenic fever in the setting of stage IV small cell lung CA s/p chemoport removal 11/30 Tegaderm removed, ok to shower from my standpoint Steri strips will fall off on their own Please reconsult with concerns or questions PROCEDURES: Procedures Removal of chemoport
[2024-12-02 13:31] LABS: Slide Review Platelets confirmed
--- NOTE | 2024-12-02 14:53 | ESPR_ITS ---
<Statement entered by Roshan Munoz MD - 12/02/24 17:44> I have reviewed the note and agree with the resident's assessment & plan with exceptions as below. I have personally reviewed labs, imaging, home meds/prior records, examined the patient, formulated and discussed management plan with the IM team. Patient examined at bedside today. Patient continues to have fevers overnight, Tmax 104.4. Concern for patient's decline, pancytopenia, will initiate CT scan with contrast abdomen pelvis as there was a previous possible hydronephrosis and stone seen on previous scan. We may be missing an infection as previous CT scan did not have contrast. Patient continues to have fevers despite port cath removed as we thought this was the nidus of infection. Will increase antibiotics to Zosyn and azithromycin at this time. We also will bolus patient with fluid to avoid worsening of RAMSES. Spoke with nephrology, they are okay with this at this time. Nephrology on consult, appreciate recommendations. Prognosis remains guarded at this time. Repeat hematology and chemistry in AM. Continuing with micafungin, filgrastim, however no improvement with cell lines. Oncology consulted, appreciate recommendations. Roshan Munoz, PGY-2 Internal Medicine Documentation for date of: 12/02/24 Subjective Subjective Interval history: Overnight patient noted to be febrile to 104.4, tachycardic to 123 and tachypneic to 27. Patient was given IV and oral tylenol. Patient seen and examined at bedside. Vitals and labs reviewed. Patient endorsed feeling very cold this morning, was given a couple warm blankets. Patient denies chest pain, shortness of breath, n/v, diarrhea. Exam Vital Signs Temp Pulse Resp BP Pulse Ox O2 Del Method O2 Flow Rate 101 F H 119 H 17 120/77 94 L Room Air 2 12/02/24 12:13 12/02/24 12:00 12/02/24 12:00 12/02/24 12:00 12/02/24 12:00 12/02/24 12:00 12/02/24 08:00 Narrative Exam General: [place] Speaking; mild distress, ill appearing, shivering; A&Ox3 Skin: Warm, dry, intact, no obvious rash. HENT: NCAT, EOMI, not icteric. External ears normal. No rhinorrhea. Moist mucous membranes Cardiovascular: Portacath removal site R chest; Tachycardic, regular rhythm, no murmur, +S1/S2. Respiratory: Lungs CTAB GI: Tender Soft, non-distended. No guarding or rebound tenderness. Extremities: no edema, no cyanosis, no clubbing. Extremity pulses present Neuro: No focal deficits observed. Conversant, moving all extremities. No overt cerebellar signs/incoordination. Psychiatric: Cooperative, appropriate affect. Objective Labs 12/03/24 04:43 12/03/24 04:43 Labs: Laboratory Results - last 24 hr 12/01/24 12/02/24 12/02/24 15:11 00:20 04:39 WBC < 0.4 L* < 0.4 L* RBC 3.46 L 3.19 L Hgb 9.8 L D 9.4 L 8.9 L Hct 29.1 L 27.6 L 26.8 L MCV 84 84 MCH 28.3 27.9 MCHC 33.7 33.2 RDW Std Deviation 71.4 H 73.4 H Plt Count 15 L* D 12 L* Neut % (Auto) 26 L 27 L Lymph % (Auto) 52 H 40 [place] % (Auto) 17 H 27 H Eos % (Auto) 0 0 Baso % (Auto) 0 0 Neut # (Auto) 0.1 L 0.1 L Lymph # (Auto) 0.1 L 0.1 L [place] # (Auto) 0.0 0.1 Eos # (Auto) 0.0 0.0 Baso # (Auto) 0.0 0.0 Immature Gran # (Auto) 0.01 H 0.02 H Absolute Nucleated RBC 0.00 0.00 Immature Gran % 4 H 7 H Nucleated RBC % 0 0 Sodium 139 140 Potassium 3.9 3.9 Chloride 106 106 Carbon Dioxide 23.5 20.4 Anion Gap 10 14 BUN 43 H 43 H Creatinine 2.6 H 2.4 H Estim Creat Clear Calc 28.0 L 31.0 L eGFR 27 L 29 L BUN/Creatinine Ratio 17 18 Glucose 116 H 113 H Calculated Osmolality 289 291 Lactic Acid 1.4 Calcium 7.9 L 7.8 L Corrected Calcium 8.7 8.7 Phosphorus 3.4 Magnesium 1.8 Total Bilirubin 1.3 H D 1.0 AST 210 H 195 H ALT 156 H 137 H Alkaline Phosphatase 351 H D 406 H D Total Protein 5.1 L 5.0 L Albumin 3.0 L 2.9 L Globulin 2.1 L 2.1 L Albumin/Globulin Ratio 1.4 1.4 Misc Test Result Platelets confirmed Platelets confirmed Quality Measures Quality Measures none (holding heparin for low platelets) Assessment & Plan Assessment Current Active Medications: Generic Name Dose Route Start Last Admin Trade Name Freq PRN Reason Stop Dose Admin Acetaminophen 650 mg 11/29/24 23:41 12/02/24 09:24 Acetaminophen 325 Mg Tablet PO 12/25/24 13:24 650 mg Q4HR PRN Administration Mild Pain 1-3 Or Fever > 100.4 Hydrocodone Bitart/Acetaminophen 1 tab 11/30/24 10:42 Hydrocodone/Apap 5/325 Tablet PO 12/05/24 10:41 Q6HR PRN Pain 4-7 or breakthrough pain Benzonatate 100 mg 11/30/24 10:46 11/30/24 14:50 Benzonatate 100 Mg Capsule PO 12/30/24 10:45 100 mg Q8HR PRN Administration COUGH Protocol Calcium Carbonate 600 mg 11/25/24 20:00 12/02/24 09:23 Calcium Carbonate 600 Mg Tablet PO 12/25/24 19:59 600 mg QDAY ARI Administration Dronabinol 2.5 mg 11/29/24 09:35 12/02/24 09:23 Dronabinol 2.5 Mg Capsule PO 12/29/24 09:34 2.5 mg BIDAC ARI Administration Filgrastim 300 mcg 12/01/24 09:00 12/02/24 09:59 Filgrastim Inj (Zarxio) 300 Mcg/0.5 Ml Syringe SC 12/04/24 08:59 300 mcg QDAY ARI Administration Micafungin Sodium 100 mg/ 100 mls @ 100 mls/hr 11/28/24 09:00 12/02/24 09:59 Sodium Chloride IV 12/13/24 08:59 100 mls/hr QDAY ARI Administration Vancomycin HCl 200 mls @ 200 mls/hr 11/30/24 17:00 12/02/24 05:02 Vancomycin/Water 1gm Ivpb IV 12/07/24 16:59 200 mls/hr Q36H ARI Administration Protocol Levofloxacin/Dextrose 750 mg in 150 mls @ 100 mls/hr 12/01/24 15:00 12/01/24 16:09 Levaquin Ivpb IV 12/08/24 14:59 100 mls/hr Q48H ARI Administration Protocol Dextrose/Lactated Ringer's 1,000 mls @ 125 mls/hr 12/02/24 10:30 12/02/24 12:16 D5-Lr IV 12/02/24 18:29 125 mls/hr .Q8H ARI Administration Pharmacy Consult 1 each 12/01/24 09:19 Vancomycin Pharmacy To Dose 1 Each Each IV 12/30/24 15:29 QDAY PRN PROTOCOL Polyethylene Glycol 17 gm 11/26/24 07:16 Polyethylene Glycol 17 Gm Packet PO 12/25/24 18:29 QDAY PRN CONSTIPATION Protocol Plan 64-year-old male with a history of 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 Admitted to ICU for management of septic shock, found to have neutropenic fever, pancytopenia, downgraded s/p port-a-cath removal for potential source of infection; s/p central line. #Sepsis #Pancytopenia #Neutropenic Fever (ANC >1000, no fever past 24h) #Community-Acquired Pneumonia Most likely chemotherapy-induced myelosuppression vs bacterial pneumonia (supported by imaging and labs) vs possible fungal or atypical infections, especially in immunocompromised host. Continue monitoring for recurrent fever or hemodynamic instability. Repeat cultures if new fever. Consider fungal workup if not improving. Recieved Filgrastim 300 mcg x1 (on 11/25, 11/28, 11/29); Transfused 1u pRBC 11/28; Transfused 1u Platelets on 11/28 11/29: Given 2 units Platelet transfusion overnight; Port-a-Cath removed 12/02: flu/covid/rsv negative Dr. Rutledge following him outpatient, recommended continuing filgrastim qd until ANC > 1500 consistently - Possible CT AP w/ contrast to look for infection source - ID consulted, appreciate recs - Started zosyn & azithromycin (dc'd levaquin); continuing Micafungin 100 mg IV q day and Vancomycin (pharm dosed) - filgrastim 300 mcg qd - Started D5/LR maintenance fluids @ 125mls/hr - Ordered blood/urine cultures (11/30) along with sputum cx, gram stain & stool cx, wbc - Transfuse pRBC if Hgb <7 g/dL; - Daily CBC monitoring. Monitor for new fever or infectious symptoms. #History of Stage IV Small Cell Lung Cancer, Metastatic (liver, bone, adrenal) Diagnosed 2022 and started on chemotherapy and radiation therapy Last follow-up with oncologist November 22 2024, received chemotherapy Based on last oncology note patient had initial good response to chemotherapy, progression on carboplatin and irinotecan (2022), and current third-line therapy with Lubridactin. On November 22 2024, was considering Empower trial for immunotherapy, and possible transfer to [place] for Terlatumab treatment CT abdo/pelvis 11/28/2023 showed numerous hepatic and left adrenal lesions along with widespread bone mets Surgery consulted for port-a-cath removal planned for 11/30/2024 - Consulted Oncology Dr. Forrester, appreciate recs - Dr. Rutledge following him outpatient & providing recommendations (above) (radiation oncology, Dr. Ugarte) #Acute Kidney Injury (suspected ATN, Cr 2.4, baseline ~1.3) Most likely acute tubular necrosis secondary to sepsis and hypotension. [id number] diagnosis is obstructive uropathy, which should be ruled out with imaging if clinical suspicion arises. Less likely is drug-induced nephrotoxicity; review medication list for nephrotoxic agents. Daily monitoring of renal function (creatinine, urine output). 11/30: Cr 2.4 (2.6- given 2 liters LR IV bolus's 11/29) - Nephrology consulted, appreciate recs - Continue to monitor cmp - Renal dose adjustments for all medications as indicated. - Avoid NSAIDs or other nephrotoxic drugs. #Acute Hypoxic Respiratory Failure (2L NC 99% O2), improving Most likely community-acquired pneumonia (supported by imaging and clinical presentation). [id number] diagnosis is pulmonary embolism, given the patient's cancer history and acute hypoxia. Less likely is progression of metastatic lung cancer, as acute infectious findings predominate. Continue daily assessment of respiratory status and oxygen requirements. Monitor for clinical deterioration; consider repeat chest imaging if no improvement. D- dimer and/or CT pulmonary angiography if PE suspected. - On Zosyn 3.375 mg IV q8hr and Micafungin 100 mg IV q day - Wean supplemental oxygen as tolerated. - Monitor for signs of respiratory distress; escalate care if needed. #Transaminitis (improving; AST 506, ALT 555, Alk Phos 175) Most likely ischemic hepatitis secondary to prior septic shock. Ibik-bfn-qwmy diagnosis is acute viral hepatitis, which has been ruled out by negative panel. Less likely is hepatic infiltration by metastases; CT shows lesions but no acute findings. 11/30: AST 244 (291), ALT 197 (259), Alk Phos 319 (283) - Daily LFTs. Monitor for jaundice or worsening liver function. - Supportive care; avoid hepatotoxic medications. No specific therapy indicated at present. #Hypocalcemia (repleted) Most likely secondary to acute illness and/or chemotherapy vs less likely tumor lysis syndrome. - Monitor calcium and electrolytes daily. - Replete calcium as needed. #New Onset Diabetes Mellitus (HbA1c 6.5%) HbA1c 6.5% - Dietary and lifestyle modifications. - Target glucose 140-180 mg/dL. - Outpatient follow-up with PCP for further management. #Septic Shock (resolved) Hospital Management: Disposition: Tele Diet: Low Microbial GI Prophylaxis: Stopped Protonix 40mg qday Bowel Prophylaxis: Miralax DVT Prophylaxis: HOLD Heparin CODE STATUS: Full Code Patient plan of care was discussed with the attending physician, Dr. Ro & resident physician Dr. Alexander Lowery MD PGY-1 Attending Provider Attestation/Addendum I reviewed labs, imaging, EKG, home medications and prior available records. Face to face evaluation was performed by me. I have personally examined the patient and discussed assessment and plan with the IM team. I reviewed the resident note and agree with the plan with exceptions as below. Acute febrile illness Neutropenic fever Pancytopenia Septic shock: Possibly due to left-sided pneumonia versus Port-A-Cath infection RAMSES, possibly intrinsic in setting of chemotherapy versus shock Source of infection is still unclear. Could be secondary to atypical pneumonia versus port A cath infection Changed antibiotics to levofloxacin and micafungin Continues to spike fevers. Repeat blood cultures are negative to date Removed port a cath by general surgery Trend CBC: Hemoglobin dropped status post 1 PRBC Platelet level is critical. Transfuse if less than 10 Continue Neupogen and monitor WBC Consulted oncology Consulted ID who agreed on switching Zosyn to levofloxacin Consulted nephrology agreed with IV fluids Monitor kidney function: Slightly improved. Avoid nephrotoxins
--- NOTE | 2024-12-02 15:39 | PD.RESCONSUL ---
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 Rutledge and Dr. Ugarte at [facility] presents to the emergency room with worsening fatigue and a feeling of heaviness in his chest for the past 4 days. His symptoms began after a chemotherapy session on November 22. He is accompanied by his brother, who is providing translation. The patient reports feeling more tired than usual since his last chemotherapy session. He has also had a cough and a subjective fever. He denies shortness of breath. He describes a feeling of heaviness in his chest. His brother notes that the patient's white blood cell count was low on both Friday and Friday before the chemotherapy was administered. The patient's brother reports that the patient was constipated after chemotherapy but has not had diarrhea. There are no sick contacts at home. Patient is not complaining of any chest pain or shortness of breath. 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 Notable labs include pancytopenia and a mild metabolic acidosis with a bicarbonate of 18.2. Kidney function is significantly impaired, as shown by a creatinine of 2.0. Liver enzymes are elevated with an AST of 506 and ALT of 555, and the alkaline phosphatase is 175. The procalcitonin is markedly elevated at 10.7. CXR confirms pneumonia. EKG shows sinus tachycardia, along with nonspecific T-wave changes. Later on the patient's condition worsened, becoming hypotensive with a blood pressure of 80/49. A second liter of IV fluids was ordered, and Levophed was initiated to support blood pressure. Patient admitted to ICU for septic shock management in the setting of neutropenic fever. 12/02/2024: patient seen and examined at bedside, he is shivering and reports feeling very cold. he continued to have fevers overnight to 104, he remains on reverse contact precautions. Cr 2.4 from 2.6, BUN 43 GFR 29. remains tachycardic to 120s and BP is normotensive cc:: cc: Maliha Maloney MD Review of Systems Review of Systems Narrative Review of Systems: as per hpi Past Medical History Past Medical History NEUROLOGIC: Negative Neurological Disorders, Cerebrovascular Accident, Transient Ischemic Attacks (TIA), Dementia, Alzheimer's Disease, Parkinson's Disease, Brain Tumor, Meningitis, Seizures, Epilepsy, Multiple Sclerosis, Cerebral Palsy, Amyotrophic Lateral Sclerosis (ALS/[place]hrig's), Guillain-[place] Syndrome, Spina Bifida, Paralysis, Peripheral Neuropathy, Navarrete's Palsy, Subdural Hematoma, Migraine, Head Trauma, Spinal Cord Injury or Traumatic Brain Injury CARDIAC: Negative Cardiac Disorders, Myocardial Infarction, Cardiac Arrhythmia, Atrial Fibrillation, Angina, Heart Murmur, Coronary Artery Disease, Atherosclerotic Heart Disease, Peripheral Vascular Disease, Hypercholesterolemia, Aneurysm, Congestive Heart Failure, Congenital Heart Disease, Valvular Heart Disease, Rheumatic Fever, Cardiomyopathy, Edema, Pericarditis, Cellulitis, Deep Vein Thrombosis, Hypertension, Hypotension or Varicose Veins RESPIRATORY: Negative Respiratory Disorders, Chronic Obstructive Pulmonary Disease (COPD), Asthma, Bronchitis, Emphysema, Pneumonia, Pulmonary Fibrosis, Cystic Fibrosis, Tuberculosis, Pulmonary Embolism, Pulmonary Edema or Sleep Apnea GASTROINTESTINAL: Negative Gastrointestinal Disorders, Hepatitis, Cirrhosis, Pancreatitis, Celiac Disease, Gall Bladder Disease, Gastrointestinal Bleed, Esophageal Varices, Sanchez's Esophagus, Colitis, Ulcerative Colitis, Diverticulitis, Diverticulosis, Ulcer, Colorectal Cancer, Irritable Bowel, Crohn's Disease, Obstructive Bowel, Hiatal Hernia, Hemorrhoids, Gastroesophageal Reflux Disease or Obesity GENITOURINARY: Negative Genitourinary Disorders, Renal Disease, Kidney Stones, Polycystic Kidney Disease, Neurogenic Bladder, Inguinal Hernia, Dialysis, Prostate Cancer or Benign Prostatic Hyperplasia REPRODUCTIVE: Negative Breast Cancer or Testicular Cancer MUSCULOSKELETAL: Negative Musculoskeletal Disorders, Muscular Dystrophy, Myasthenia Gravis, Marfan's Syndrome, Bone Cancer, Arthritis, Rheumatoid Arthritis, Osteoporosis, Gout, Scoliosis, Carpal Tunnel Syndrome, Fibromyalgia, Fractures, Degenerative Joint Disease, Osteomyelitis or Poliovirus ENT: Negative Cataracts, Glaucoma, Blind, Retinal Detachment, Macular Degeneration, Ear Infection, Deafness, Head Trauma or Eye Prosthesis ENDOCRINE: Negative Endocrine Disorders, Diabetes Mellitus Type 1, Diabetes Mellitus Type 2, Hypoglycemia, [place]'s Syndrome, Wade's Disease, Hyperthyroidism, Hypothyroidism, Parathyroid Disease, Pituitary Disease, Systemic Lupus Erythematosus, Syndrome of Inappropriate Antidiuretic Hormone (SIADH), Adrenal Disease or Graves' Disease HEMATOLOGIC: Negative Blood Disorders, Anemia, Leukemia, Hemophilia, Thalassemia, Sickle Cell Disease or Clotting Problems PSYCHO/SOCIAL: Negative Psychiatric Problems, Schizophrenia, Recreational Drug Use, Bipolar Disorder, Depression, Anxiety, Behavior Problems, Self-Mutilation, Attention Deficit Disorder, Attention Deficit Hyperactivity Disorder, Depression, Post Traumatic Stress Disorder or Eating Disorder OTHER HISTORY: Positive Cancer and Lung Cancer; Negative Hospitalization, Autoimmune Disease, Down Syndrome, Autism, Developmental Delay, Shingles, Falls, Blood Transfusions, Blood Transfusion Reaction, Anesthesia Reactions, Organ Transplant, Chemotherapy, Radiation Therapy, Hyperbaric Therapy, MRSA, VRSA, Vancomycin-Resistant Enterococci, Human Immunodeficiency Virus (HIV), Chicken Pox, Measles, Mumps, Rubella (Malay Measles), Pertussis, Clostridium Difficile, Breast Cancer, Colorectal Cancer, Prostate Cancer or Testicular Cancer Family History FAMILY HISTORY: Positive Family Cancer; Negative Family Psychiatric Problems, Family Respiratory Disorders, Family Cardiac Disorders, Family Gastrointestinal Problems, Family Surgery or Family Anesthesia Reaction Surgical History SURGICAL: Negative Cardiac Surgery, Open Heart Surgery, Coronary Artery Bypass Graft, Valve Replacement, Vascular Surgery, Coronary Stent, Cardiac Catheterization, Pacemaker, Angiogram, Auto Implanted Cardiovert Defib, Carotid Endarterectomy, Endocrine Surgery, Thyroidectomy, Ear Surgery, Tympanostomy Tube, Eye Surgery, Nose Surgery, Oral Surgery, Tonsillectomy, Adenoidectomy, Cochlear Implant, Corneal Transplant, Throat Surgery, Abdominal Surgery, Tracheostomy, Gastric Bypass Surgery, Gastrostomy, Bowel Surgery, Nephrectomy, Transurethral Resection, Joint Replacement, Amputation, Open Reduction Internal Fixation, Arthroscopy, Neurologic Surgery, Brain Shunt, Vasectomy or Organ Transplant Social History SMOKING STATUS: Never smoker SUBSTANCE USE: does not use Exam Vital Signs Temp Pulse Resp BP Pulse Ox O2 Del Method O2 Flow Rate 101 F H 119 H 17 120/77 94 L Room Air 2 12/02/24 12:13 12/02/24 12:00 12/02/24 12:00 12/02/24 12:00 12/02/24 12:00 12/02/24 12:00 12/02/24 08:00 Narrative Exam GENERAL: frail gentleman in moderate distress<del>,</del> shivering, AAO x2, laying in bed HEENT: Head AT/ NC. Mucous membranes dry. NECK: Supple, no lymphadenopathy, CARDIOVASCULAR: RRR. Normal S1/S2, + murmmor. No pitting edema of bilateral LEs. removal of chemo port RESPIRATORY: CTAB. No wheezing, rhonchi, crackles. GASTROINTESTINAL: Abdomen tense, tympanic, distended, non tender no palpable masses. Bowel sounds present MUSCULOSKELETAL:? No cyanosis or edema, no visible joint swelling. NEUROLOGICAL: CN II-XII grossly intact. No focal deficits. Sensation intact, symmetric. PSYCHIATRIC: Awake and alert, not agitated, normal mood and affect. SKIN: No obvious rashes, no jaundice, normal turgor. Results Labs 12/02/24 04:39 12/02/24 04:39 Labs: Short CBC 12/01/24 12/02/24 12/02/24 Range/Units 15:11 00:20 04:39 WBC < 0.4 L* < 0.4 L* (3.8-10.6) Thou/mm3 Hgb 9.8 L D 9.4 L 8.9 L (13.5-16.0) g/dL Hct 29.1 L 27.6 L 26.8 L (41.0-53.0) % Plt Count 15 L* D 12 L* (140-440) Thou/mm3 BMP 12/01/24 12/02/24 15:11 04:39 Sodium 139 140 Potassium 3.9 3.9 Chloride 106 106 Carbon Dioxide 23.5 20.4 BUN 43 H 43 H Creatinine 2.6 H 2.4 H Glucose 116 H 113 H Calcium 7.9 L 7.8 L Liver Function 12/01/24 12/02/24 Range/Units 15:11 04:39 Total Bilirubin 1.3 H D 1.0 (0.3-1.2) mg/dL AST 210 H 195 H (0-34) U/L ALT 156 H 137 H (10-49) U/L Alkaline Phosphatase 351 H D 406 H D (46-116) U/L Albumin 3.0 L 2.9 L (3.4-4.8) gm/dL Quality Measures Quality Measures none (holding heparin for low platelets) Medications Home Medications and Allergies Home Medications ?Medication ?Instructions ?Recorded ?Confirmed ?Type No Known Home Medications 12/01/24 12/01/24 History Allergies Allergy/AdvReac Type Severity Reaction Status Date / Time No Known Allergies Allergy Verified 11/25/24 10:10 Visit Medications Acetaminophen (Acetaminophen 325 Mg Tablet) 650 mg PO Q4HR PRN PRN Reason: Mild Pain 1-3 Or Fever > 100.4 Stop: 12/25/24 13:24 Last Admin: 12/02/24 09:24 Dose: 650 mg Hydrocodone Bitart/Acetaminophen (Hydrocodone/Apap 5/325 Tablet) 1 tab PO Q6HR PRN PRN Reason: Pain 4-7 or breakthrough pain Stop: 12/05/24 10:41 Benzonatate (Benzonatate 100 Mg Capsule) 100 mg PO Q8HR PRN; Protocol PRN Reason: COUGH Stop: 12/30/24 10:45 Last Admin: 11/30/24 14:50 Dose: 100 mg Calcium Carbonate (Calcium Carbonate 600 Mg Tablet) 600 mg PO QDAY COUNT INCLUDES THE [facility] Stop: 12/25/24 19:59 Last Admin: 12/02/24 09:23 Dose: 600 mg Dronabinol (Dronabinol 2.5 Mg Capsule) 2.5 mg PO BIDAC COUNT INCLUDES THE [facility] Stop: 12/29/24 09:34 Last Admin: 12/02/24 09:23 Dose: 2.5 mg Filgrastim (Filgrastim Inj (Zarxio) 300 Mcg/0.5 Ml Syringe) 300 mcg SC QDAY COUNT INCLUDES THE [facility] Stop: 12/04/24 08:59 Last Admin: 12/02/24 09:59 Dose: 300 mcg Micafungin Sodium 100 mg/ (Sodium Chloride) 100 mls @ 100 mls/hr IV QDAY COUNT INCLUDES THE [facility] Stop: 12/13/24 08:59 Last Admin: 12/02/24 09:59 Dose: 100 mls/hr Vancomycin HCl (Vancomycin/Water 1gm Ivpb) 200 mls @ 200 mls/hr IV Q36H COUNT INCLUDES THE [facility]; Protocol Stop: 12/07/24 16:59 Last Admin: 12/02/24 05:02 Dose: 200 mls/hr Levofloxacin/Dextrose (Levaquin Ivpb) 750 mg in 150 mls @ 100 mls/hr IV Q48H COUNT INCLUDES THE [facility]; Protocol Stop: 12/08/24 14:59 Last Admin: 12/01/24 16:09 Dose: 100 mls/hr Dextrose/Lactated Ringer's (D5-Lr) 1,000 mls @ 125 mls/hr IV .Q8H ARI Stop: 12/02/24 18:29 Last Admin: 12/02/24 12:16 Dose: 125 mls/hr Pharmacy Consult (Vancomycin Pharmacy To Dose 1 Each Each) 1 each IV QDAY PRN PRN Reason: PROTOCOL Stop: 12/30/24 15:29 Polyethylene Glycol (Polyethylene Glycol 17 Gm Packet) 17 gm PO QDAY PRN; Protocol PRN Reason: CONSTIPATION Stop: 12/25/24 18:29 Discontinued Medications Acetaminophen (Acetaminophen 325 Mg Tablet) 650 mg PO X1 ONE Stop: 11/25/24 11:37 Last Admin: 11/25/24 11:48 Dose: 650 mg Acetaminophen (Acetaminophen 325 Mg Tablet) 650 mg PO Q4HR PRN PRN Reason: PAIN SCALE 1-3 (mild Stop: 12/25/24 13:24 Acetaminophen (Acetaminophen Supp 650 Mg Supp) 650 mg NC Q4HR PRN PRN Reason: PAIN SCALE 1-3 (mild Stop: 12/25/24 13:24 Acetaminophen (Acetaminophen 325 Mg Tablet) 650 mg PO X1 ONE Stop: 11/30/24 21:45 Last Admin: 11/30/24 21:56 Dose: 650 mg Acetaminophen (Acetaminophen 325 Mg Tablet) 650 mg PO X1 ONE Stop: 12/01/24 00:24 Last Admin: 12/01/24 00:31 Dose: 650 mg Bisacodyl (Bisacodyl 5 Mg Tabec) 5 mg PO QDAY ARI; Protocol Stop: 12/25/24 18:29 Last Admin: 11/25/24 19:53 Dose: Not Given Bisacodyl (Bisacodyl 5 Mg Tabec) 5 mg PO QDAY PRN; Protocol PRN Reason: CONSTIPATION Stop: 12/26/24 08:59 Filgrastim (Filgrastim Inj (Zarxio) 300 Mcg/0.5 Ml Syringe) 300 mcg SC X1 ONE Stop: 11/25/24 17:31 Last Admin: 11/25/24 18:14 Dose: 300 mcg Filgrastim (Filgrastim Inj (Zarxio) 300 Mcg/0.5 Ml Syringe) 300 mcg SC X1 ONE Stop: 11/28/24 07:16 Last Admin: 11/28/24 08:22 Dose: 300 mcg Filgrastim (Filgrastim Inj (Neupogen) 300 Mcg/Ml Vial) 300 mcg SC X1 ONE Stop: 11/29/24 07:01 Last Admin: 11/29/24 07:53 Dose: 300 mcg Filgrastim (Filgrastim Inj (Zarxio) 300 Mcg/0.5 Ml Syringe) 300 mcg SC X1 ONE Stop: 11/30/24 16:16 Last Admin: 11/30/24 16:51 Dose: 300 mcg Heparin Sodium (Porcine) (Heparin Sod Inj 5000 Unit/Ml Vial) 5,000 unit SC Q8HR ARI Stop: 12/09/24 21:59 Last Admin: 11/27/24 14:13 Dose: Not Given Lactated Ringer's (Lactated Ringers) 1,000 mls @ 999 mls/hr IV .Q1H1M ONE Stop: 11/25/24 12:11 Last Infusion: 11/25/24 13:00 Dose: Infused Lactated Ringer's (Lactated Ringers) 1,000 mls @ 999 mls/hr IV .Q1H1M ONE Stop: 11/25/24 12:11 Last Infusion: 11/25/24 14:05 Dose: Infused Piperacillin Sod/Tazobactam (Sod 4.5 gm/ Sodium Chloride) 100 mls @ 200 mls/hr IV X1 ONE Stop: 11/25/24 11:40 Last Infusion: 11/25/24 13:05 Dose: Infused Vancomycin HCl (Vancomycin/Water 1gm Ivpb) 200 mls @ 120 mls/hr IV X1 ONE Stop: 11/25/24 12:54 Last Infusion: 11/25/24 15:52 Dose: Infused Norepinephrine/Dextrose (Levophed In D5w 8mg/250ml) 8 mg in 250 mls @ 6.804 mls/hr IV .Q24H PRN; Protocol PRN Reason: PER PROTOCOL Stop: 12/25/24 13:13 Last Titration: 11/28/24 16:00 Dose: 0 mcg/kg/min, 0 mls/hr Piperacillin/Tazobactam/Dextrose (Zosyn) 3.375 gm in 50 mls @ 12.5 mls/hr IV Q8HR COUNT INCLUDES THE [facility] Stop: 12/02/24 21:59 Last Admin: 12/01/24 05:19 Dose: 12.5 mls/hr Vasopressin/Sodium Chloride (Vasostrict/Ns Ivpb) 20 unit in 100 mls @ 9 mls/hr IV .Q11H7M PRN; Protocol PRN Reason: PER PROTOCOL Stop: 12/25/24 14:36 Vancomycin/Sodium Chloride (Vancomycin/Ns 500 Mg Ivpb) 100 mls @ 120 mls/hr IV X1 ONE Stop: 11/26/24 10:49 Last Admin: 11/26/24 10:05 Dose: 120 mls/hr Lactated Ringer's (Lactated Ringers) 1,000 mls @ 999 mls/hr IV .Q1H1M ONE Stop: 11/26/24 11:03 Last Admin: 11/26/24 10:04 Dose: 999 mls/hr Vancomycin/Sodium Chloride (Vancomycin/Ns 750 Mg Ivpb) 750 mg in 150 mls @ 120 mls/hr IV X1 ONE Stop: 11/27/24 11:14 Last Admin: 11/27/24 11:05 Dose: Not Given Lactated Ringer's (Lactated Ringers) 1,000 mls @ 999 mls/hr IV .Q1H1M ONE Stop: 11/27/24 08:22 Last Admin: 11/27/24 08:54 Dose: 999 mls/hr Lactated Ringer's (Lactated Ringers) 1,000 mls @ 999 mls/hr IV .Q1H1M ONE Stop: 11/27/24 12:02 Last Admin: 11/27/24 11:14 Dose: 999 mls/hr Calcium Gluconate/Sodium Chloride (Calcium Gluc/Ns 1000mg Ivpb) 1,000 mg in 50 mls @ 50 mls/hr IV X1 ONE Stop: 11/28/24 09:47 Last Infusion: 11/29/24 08:02 Dose: Infused Lactated Ringer's (Lactated Ringers) 1,000 mls @ 999 mls/hr IV .Q1H1M ONE Stop: 11/29/24 10:22 Last Admin: 11/29/24 10:13 Dose: 999 mls/hr Sodium Chloride (Ns) 500 mls @ 999 mls/hr IV .Q31M ONE Stop: 11/29/24 18:11 Last Admin: 11/29/24 19:40 Dose: Not Given Lactated Ringer's (Lactated Ringers) 1,000 mls @ 999 mls/hr IV .Q1H1M ONE Stop: 11/29/24 18:45 Last Admin: 11/29/24 18:04 Dose: 999 mls/hr Lactated Ringer's (Lactated Ringers) 1,000 mls @ 999 mls/hr IV .Q1H1M ONE Stop: 12/01/24 01:23 Last Admin: 12/01/24 00:31 Dose: 999 mls/hr Azithromycin 500 mg/ Sodium (Chloride) 250 mls @ 250 mls/hr IV QDAY COUNT INCLUDES THE [facility] Stop: 12/08/24 10:08 Last Admin: 12/01/24 11:04 Dose: Not Given Acetaminophen (Ofirmev Inj) 1,000 mg in 100 mls @ 250 mls/hr IV X1 ONE Stop: 12/02/24 00:37 Last Admin: 12/02/24 00:49 Dose: 250 mls/hr Levofloxacin (Levofloxacin 250 Mg Tablet) 500 mg PO QDAY COUNT INCLUDES THE [facility] Stop: 12/09/24 08:59 Levofloxacin (Levofloxacin 250 Mg Tablet) 500 mg PO QDAY COUNT INCLUDES THE [facility] Stop: 12/08/24 14:29 Last Admin: 12/01/24 15:14 Dose: Not Given Magnesium Hydroxide (Milk Of Magnesia Susp 30 Ml Udc) 30 ml PO QDAY PRN; Protocol PRN Reason: CONSTIPATION Stop: 12/25/24 13:24 Midodrine (Midodrine 5 Mg Tablet) 10 mg PO TID COUNT INCLUDES THE [facility] Stop: 12/25/24 17:44 Last Admin: 11/27/24 06:15 Dose: 10 mg Midodrine (Midodrine 5 Mg Tablet) 10 mg PO X1 ONE Stop: 11/30/24 01:09 Last Admin: 11/30/24 01:13 Dose: 10 mg Pantoprazole Sodium (Pantoprazole 40 Mg Tablet) 40 mg PO QDAY COUNT INCLUDES THE [facility] Stop: 12/26/24 08:59 Last Admin: 11/29/24 08:13 Dose: 40 mg Pharmacy Consult (Vancomycin Pharmacy To Dose 1 Each Each) 1 each IV QDAY PRN PRN Reason: CONSULT Stop: 12/25/24 11:10 Pharmacy Consult (Vancomycin Pharmacy To Dose 1 Each Each) 1 each IV QDAY COUNT INCLUDES THE [facility] Stop: 12/30/24 15:29 Last Admin: 12/01/24 11:04 Dose: Not Given Polyethylene Glycol (Polyethylene Glycol 17 Gm Packet) 17 gm PO QDAY ARI Stop: 12/25/24 18:29 Last Admin: 11/25/24 19:53 Dose: Not Given Sodium Chloride (Sodium Chloride Rt 10% 15 Ml Nebu) 5 ml INH X1 ONE Stop: 11/25/24 14:36 Last Admin: 11/25/24 22:25 Dose: Not Given Sodium Chloride (Sodium Chloride Rt 10% 15 Ml Nebu) 5 ml INH X1 ONE Stop: 11/30/24 15:39 Last Admin: 12/02/24 07:05 Dose: Not Given Sodium Chloride (Sodium Chloride Rt 10% 15 Ml Nebu) 5 ml INH X1 ONE Stop: 12/01/24 02:09 Last Admin: 12/01/24 02:20 Dose: 5 ml Assessment & Plan Problem List (1) RAMSES (acute kidney injury): Status: Acute (2) Septic shock: Status: Acute (3) Neutropenic fever: Status: Acute (4) Elevated LFTs: Status: Acute (5) Pneumonia: Status: Acute (6) Pancytopenia: Status: Acute Plan Mr Garza is a 63 yo gentleman with a hx of 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 Rutledge and Dr. Ugarte at [facility] presents to the emergency room with worsening fatigue and a feeling of heaviness in his chest admitted to ICU for neutropenic fever. RAMSES Baseline Cr 1.0, now 2.4 eGFR 29 Ddx: Consider pre vs intra vs post renal etiologies query ATN Dx - BUN/Cr ratio: 18, - Daily CMP - renal US with small kidneys and cortical thinning, no hydronephrosis, no stones - UA 1+ protein, 3+ blood, ?amorphous crystals Tx - Avoid nephrotoxic medications - strict i and o - cont IV fluids per primary team Neutropenic Fever of unkown origin CAP pt continues to spike fevers to 104, tachycardic to 120s, s/p chemo port removal with dr. vasques 11/30. thought to be the nidus of infection Bcx negative continues on abx, onc cocnsulted ID consulted Stage IV metastatic Small cell lung cancer Transaminitis hypoalbuminemia normocytic anemia thrombocytopenia - management per primary team Plan discussed with nephrology attending Dr. Keith Hagen MD Internal Medicine PGY-1 Attending Provider Attestation/Addendum Patient seen and examined with resident physician Dr. Hagen. Note reviewed, agree with findings and recommendations. Plan of care discussed with at bedside. RAMSES seems to be more prerenal azotemia. Clinically tad better today than yesterday. Zhao catheter with good urine output. Will monitor closely. Thank you Maliha for allowing me to participate in the care of Mr. Garza
[2024-12-02] MEDS: PIPER/TAZO 3.375 GM PREMIX 3.375 GM/50 ML BAG IV ×2 (17:50→21:03)
[2024-12-02] MEDS: AZITHROMYCIN INJ 500 MG in SODIUM CHLORIDE 0.9% 250 ML 250 ML 250 MG IV (18:20)
[2024-12-03] VITALS (16 sets, daily range): BP systolic 92–130; BP diastolic 71–90; PULSE 108–134; RESP 18–32; TEMP 36.9–40.3; O2SAT 91–99; BMI 30.7
[2024-12-03] MEDS: ACETAMINOPHEN IVPB 1,000 MG/100 ML VIAL 250 MG IV ×2 (00:21→09:11)
[2024-12-03] MEDS: PIPER/TAZO 3.375 GM PREMIX 3.375 GM/50 ML BAG IV ×3 (05:01→21:23)
[2024-12-03 06:02] LABS: Basophils # (Auto) 0.0 Thou/mm3 (0.0-0.2); Basophils % (Auto) 0 % (0-2.5); Eosinophils # (Auto) 0.0 Thou/mm3 (0.0-0.5); Eosinophils % (Auto) 0 % (0-10); Hematocrit 28.7 % (41.0-53.0); Hemoglobin 9.7 g/dL (13.5-16.0); Immature Granulocytes Auto 0.04 Thou/mm3 (0.00-0.00); Lymphocytes # (Auto) 0.1 Thou/mm3 (1.0-4.8); Lymphocytes % (Auto) 28 % (10-50); Mean Corpuscular HGB Conc 33.8 g/dl (31.0-37.0); Mean Corpuscular Hemoglobin 28.3 pg (25.0-35.0); Mean Corpuscular Volume 84 fL (80-100); Monocytes # (Auto) 0.1 Thou/mm3 (0.0-0.8); Monocytes % (Auto) 13 % (0-12); Neutrophils # (Auto) 0.2 Thou/mm3 (1.8-7.7); Neutrophils % (Auto) 51 % (37-80); Nucleated Red Blood Cell # 0.00 Thou/mm3 (0.00-0.00); Nucleated Red Blood Cell % 0 /100 WBC (0); RDW Standard Deviation 71.9 fL (35.1-43.9); Red Blood Count 3.43 Miln/mm3 (4.50-5.90)
[2024-12-03 06:12] LABS: Platelet Count < 5 Thou/mm3 (140-440); White Blood Count 0.5 Thou/mm3 (3.8-10.6)
[2024-12-03 06:29] LABS: Alanine Aminotransferase 101 U/L (10-49); Albumin, Serum 3.0 gm/dL (3.4-4.8); Albumin/Globulin Ratio 1.4 (1.2-2.2); Alkaline Phosphatase 359 U/L (46-116); Anion Gap 13 (7-16); Aspartate Amino Transferase 133 U/L (0-34); BUN/Creatinine Ratio 20 Ratio (12-20); Bilirubin,Total 1.3 mg/dL (0.3-1.2); Blood Urea Nitrogen 46 mg/dL (9-23); Calcium 7.9 mg/dL (8.3-10.6); Calcium (Corrected) 8.7 mg/dL (8.5-10.1); Carbon Dioxide 21.1 mMol/L (20.0-31.0); Chloride 107 mMol/L (98-107); Creatinine (Component) 2.3 mg/dL (0.6-1.3); Estimated Creatinine Clearance 31.6 mL/min (>60); Globulin 2.2 gm/dL (2.3-3.5); Glucose 127 mg/dL (74-106); Magnesium 1.9 mg/dL (1.6-2.6); Osmolality,Calculated 295 (275-295); Phosphorous 2.9 mg/dL (2.4-5.1); Potassium 3.7 mMol/L (3.4-5.1); Sodium 141 mMol/L (136-145); Total Protein 5.2 gm/dL (5.7-8.2); eGFR 31 See Note
--- NOTE | 2024-12-03 07:51 | ESCONSULT_ITS ---
RE: JUD MAYA : 1960 DATE OF CONSULTATION: 12/01/2024 REFERRING PHYSICIAN: Dr. Blaise Ruffin. REASON FOR CONSULTATION: 1. Pancytopenia 2. Small cell CA of the lung, stage IV. 3. Currently on chemotherapy. HISTORY OF PRESENT ILLNESS: Mr. Maya is a 64-year-old gentleman with stage IV metastatic small cell CA of the lung. He is on chemotherapy and status post radiation therapy. He is getting chemotherapy from cancer treatment [place]. He presented to the emergency room with worsening fatigue and feeling of heaviness in the chest for 4 days prior to the admission. His symptoms begins after the chemotherapy. He was accompanied by his brother who was acting as a tank operator. The patient mentioned that he was feeling more tired than usual since his last chemotherapy and he was having a subjective fever. He denies any cardiac type of chest pain, cough or hemoptysis, but he did mention that he was having heaviness in his chest. It is noted that the patient's brother mentioned that his blood counts were low while he got his chemotherapy. Denies any other systemic symptoms. PAST MEDICAL HISTORY: As mentioned above. 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 Denies alcohol or illicit drug use. PAST SURGICAL HISTORY: Nil. ALLERGIES: NOT KNOWN. FAMILY HISTORY: Irrelevant. PHYSICAL EXAMINATION: GENERAL: He is alert. VITAL SIGNS: His temperature today was 98.9 at 1340. Other vitals stable. HEENT: Pupils are reactive to light and accommodation. Sclerae nonicteric. NECK: Supple. There is no JVD or palpable mass. LUNGS: There is good air entry bilaterally. They are clear to auscultation. HEART: Regular. ABDOMEN: Soft. Bowel sounds are present. EXTREMITIES: 3+ pedal pulses. CENTRAL NERVOUS SYSTEM: The patient follows simple commands. RECOMMENDATIONS: His blood work has a WBC count less than 0.4, hemoglobin 9.8, hematocrit 29.1, and platelet count of 13,000. His sodium is 139, potassium 3.9, chloride is 106, BUN is 43, creatinine 2.6, and GFR is 27. AST is 210, ALT is 156, alkaline phosphatase 351, total protein is 5.1, and albumin is 3. His chest x-ray done today showed a left perihilar and left basilar pneumonia. CT of the chest, abdomen, and pelvis showed an irregular mass-like area in the left upper lobe, stable in appearance, bibasilar pneumonia, smaller bilateral pleural effusion, bronchiectasis in the left lower lobe, stable metastatic left adrenal nodule, stable 10 mm left lateral para-aortic lymph node, widespread osteoblastic metastatic disease. Agree with the present plan of treatment. Once patient is better, he can go back to the cancer center for his scheduled treatment as planned. I thank you, Dr. Ruffin, for letting me to participate in the care of this interesting patient. If you have any questions, please feel free to contact me. DT: 18:10:22 TT: 19:10:00 Ref: [id number] - TID: [id number] MTDD
--- NOTE | 2024-12-03 08:27 | PD.RESPRO ---
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 Rutledge and Dr. Ugarte at [facility] presents to the emergency room with worsening fatigue and a feeling of heaviness in his chest for the past 4 days. His symptoms began after a chemotherapy session on November 22. He is accompanied by his brother, who is providing translation. The patient reports feeling more tired than usual since his last chemotherapy session. He has also had a cough and a subjective fever. He denies shortness of breath. He describes a feeling of heaviness in his chest. His brother notes that the patient's white blood cell count was low on both Friday and Friday before the chemotherapy was administered. The patient's brother reports that the patient was constipated after chemotherapy but has not had diarrhea. There are no sick contacts at home. Patient is not complaining of any chest pain or shortness of breath. 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 12/02/2024: patient seen and examined at bedside, he is shivering and reports feeling very cold. he continued to have fevers overnight to 104, he remains on reverse contact precautions. Cr 2.4 from 2.6, BUN 43 GFR 29. remains tachycardic to 120s and BP is normotensive 12/03/2024: Patient seen and examined at bedside patient is seen with cooling packs underneath and cold towel on forehead he was shivering and fan is on hand he remains febrile to 104. Hematuria noted from Angeles catheter his platelets are less than 5, primary team to give platelets. Creatinine 2.3 BUN 46 he remains tachycardic. Exam Vital Signs Temp Pulse Resp BP Pulse Ox O2 Del Method O2 Flow Rate 98.5 F 132 H 32 H 113/90 H 95 Nasal Cannula 2 12/03/24 07:51 12/03/24 07:41 12/03/24 07:41 12/03/24 07:41 12/03/24 07:41 12/03/24 07:41 12/03/24 07:41 Narrative Exam GENERAL: frail gentleman in moderate distress<del>,</del> shivering, AAO x2, laying in bed, shivering, cooling packs. HEENT: Head AT/ NC. Mucous membranes dry. cool compress on forehead, NECK: Supple, no lymphadenopathy, CARDIOVASCULAR: RRR. Normal S1/S2, + murmmor. No pitting edema of bilateral LEs. s/p removal of chemo port RESPIRATORY: CTAB. No wheezing, rhonchi, crackles. tachypnic. GASTROINTESTINAL: Abdomen less tense, tympanic, distended, non tender no palpable masses. Bowel sounds present : Angeles catheter noted with Otto-Aid colored urine. MUSCULOSKELETAL:? No cyanosis or edema, no visible joint swelling. NEUROLOGICAL: CN II-XII grossly intact. No focal deficits. Sensation intact, symmetric. PSYCHIATRIC: Awake and alert, SKIN: No obvious rashes, no jaundice, normal turgor. Objective Labs 12/07/24 05:25 12/07/24 05:25 Labs: Laboratory Results - last 24 hr 12/02/24 12/03/24 04:39 04:43 WBC 0.5 L* RBC 3.43 L Hgb 9.7 L Hct 28.7 L MCV 84 MCH 28.3 MCHC 33.8 RDW Std Deviation 71.9 H Plt Count < 5 L* D Neut % (Auto) 51 Lymph % (Auto) 28 [place] % (Auto) 13 H Eos % (Auto) 0 Baso % (Auto) 0 Neut # (Auto) 0.2 L Lymph # (Auto) 0.1 L [place] # (Auto) 0.1 Eos # (Auto) 0.0 Baso # (Auto) 0.0 Immature Gran # (Auto) 0.04 H Absolute Nucleated RBC 0.00 Immature Gran % 9 H Nucleated RBC % 0 Sodium 141 Potassium 3.7 Chloride 107 Carbon Dioxide 21.1 Anion Gap 13 BUN 46 H Creatinine 2.3 H Estim Creat Clear Calc 31.6 L eGFR 31 L BUN/Creatinine Ratio 20 Glucose 127 H Calculated Osmolality 295 Calcium 7.9 L Corrected Calcium 8.7 Phosphorus 2.9 Magnesium 1.9 Total Bilirubin 1.3 H AST 133 H ALT 101 H Alkaline Phosphatase 359 H D Total Protein 5.2 L Albumin 3.0 L Globulin 2.2 L Albumin/Globulin Ratio 1.4 Misc Test Result Platelets confirmed Quality Measures Quality Measures none (holding heparin for low platelets) Assessment & Plan Assessment Current Active Medications: Generic Name Dose Route Start Last Admin Trade Name Freq PRN Reason Stop Dose Admin Acetaminophen 650 mg 11/29/24 23:41 12/02/24 09:24 Acetaminophen 325 Mg Tablet PO 12/25/24 13:24 650 mg Q4HR PRN Administration Mild Pain 1-3 Or Fever > 100.4 Hydrocodone Bitart/Acetaminophen 1 tab 11/30/24 10:42 Hydrocodone/Apap 5/325 Tablet PO 12/05/24 10:41 Q6HR PRN Pain 4-7 or breakthrough pain Benzonatate 100 mg 11/30/24 10:46 11/30/24 14:50 Benzonatate 100 Mg Capsule PO 12/30/24 10:45 100 mg Q8HR PRN Administration COUGH Protocol Calcium Carbonate 600 mg 11/25/24 20:00 12/02/24 09:23 Calcium Carbonate 600 Mg Tablet PO 12/25/24 19:59 600 mg QDAY ARI Administration Dronabinol 2.5 mg 11/29/24 09:35 12/03/24 07:49 Dronabinol 2.5 Mg Capsule PO 12/29/24 09:34 2.5 mg BIDAC ARI Administration Filgrastim 300 mcg 12/01/24 09:00 12/02/24 09:59 Filgrastim Inj (Zarxio) 300 Mcg/0.5 Ml Syringe SC 12/04/24 08:59 300 mcg QDAY ARI Administration Micafungin Sodium 100 mg/ 100 mls @ 100 mls/hr 11/28/24 09:00 12/02/24 09:59 Sodium Chloride IV 12/13/24 08:59 100 mls/hr QDAY ARI Administration Vancomycin HCl 200 mls @ 200 mls/hr 11/30/24 17:00 12/02/24 05:02 Vancomycin/Water 1gm Ivpb IV 12/07/24 16:59 200 mls/hr Q36H ARI Administration Protocol Azithromycin 500 mg/ Sodium 250 mls @ 250 mls/hr 12/02/24 16:18 12/02/24 18:20 Chloride IV 12/06/24 16:17 250 mls/hr QDAY ARI Administration Piperacillin/Tazobactam/Dextrose 3.375 gm in 50 mls @ 12.5 mls/hr 12/02/24 22:00 12/03/24 05:01 Zosyn IV 12/09/24 21:59 12.5 mls/hr Q8HR ARI Administration Protocol Pharmacy Consult 1 each 12/01/24 09:19 Vancomycin Pharmacy To Dose 1 Each Each IV 12/30/24 15:29 QDAY PRN PROTOCOL Pharmacy Consult 1 each 12/02/24 16:17 Pharmacy Renal Dose Adjustment 1 Ea XX 01/01/25 16:16 PRN PRN CONSULT Polyethylene Glycol 17 gm 11/26/24 07:16 Polyethylene Glycol 17 Gm Packet PO 12/25/24 18:29 QDAY PRN CONSTIPATION Protocol Plan Mr. 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 Rutledge and Dr. Ugarte at [facility] presents to the emergency room with worsening fatigue and a feeling of heaviness in his chest admitted to ICU for neutropenic fever. he remains febrile, with cooling measures. Cr remains elevated, well above baseline. RAMSES Baseline Cr 1.0, now 2.3 (slightly better) eGFR 29 Ddx: Consider pre vs intra vs post renal etiologies query ATN Dx - BUN/Cr ratio: 18, - Daily CMP - renal US with small kidneys and cortical thinning, no hydronephrosis, no stones - UA 1+ protein, 3+ blood, ?amorphous crystals - hematuria noted today in angeles bag, plt very low Tx - Avoid nephrotoxic medications - strict i and o - cont IV fluids per primary team Neutropenic Fever of unkown origin CAP pt continues to spike fevers to 104, tachycardic to 120s, s/p chemo port removal with dr. vasques 11/30. thought to be the nidus of infection Bcx negative continues on abx, and cooling onc consulted ID consulted Stage IV metastatic Small cell lung cancer Transaminitis hypoalbuminemia pancytopenia normocytic anemia hematuria likely 2/2 thrombocytopenia (PLT <5) - platelet transfusion per primary team - management per primary team Plan discussed with nephrology attending Dr. Keith Hagen MD Internal Medicine PGY-1 Attending Provider Attestation/Addendum Patient seen and examined with resident physician Dr. Hagen. Note reviewed, agree with findings and recommendations. Plan of care discussed with at bedside. RAMSES seems to be more prerenal azotemia. Patient still remains very sick looking and extremely fatigued. Barely arousable. Angeles catheter with good urine output. Will monitor closely. Continue with gentle IV fluids. Patient with a significant pancytopenia and is on reverse isolation. Platelet transfusion ordered.
[2024-12-03] MEDS: AZITHROMYCIN INJ 500 MG in SODIUM CHLORIDE 0.9% 250 ML 250 ML 250 MG IV (09:13)
[2024-12-03] MEDS: RINGERS LACTATED 1000 ML 1,000 ML 75 ML IV ×2 (09:13→21:24)
[2024-12-03] MEDS: CALCIUM CARBONATE 600 MG TABLET PO (09:14)
[2024-12-03] MEDS: FILGRASTIM INJ (ZARXIO) 300 MCG/0.5 ML SYRINGE SC (09:14)
[2024-12-03] MEDS: MICAFUNGIN SODIUM INJ 100 MG in SODIUM CHLORIDE 0.9% 100 ML IV (09:46)
--- NOTE | 2024-12-03 11:02 | XR_ITS ---
Examination: CT abdomen and pelvis without contrast. Coronal 3-D reconstructions. Sagittal 2-D reconstructions. Date and time of exam: December 03, 2024 1419 hours INDICATIONS: Abdominal pain and distention today CTDI: vol (mGy): 8.06 DLP: (mGycm): 537 Technique: Axial images of the abdomen have been obtained, 3 mm slice thickness Intravenous contrast material has not been administered. Low dose protocols were performed. One or more of the following dose reduction techniques were used; automated exposure control, adjustment of the mA and/or KV according to patient size, use of iterative reconstruction technique. Findings: Moderate bilateral effusions with bibasilar pneumonia Small pericardial effusion. Cirrhosis, liver irregular in contour with mild ascites. Spleen is not enlarged. Small pancreatic calcifications. 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
--- NOTE | 2024-12-03 11:06 | ESPR_ITS ---
<Statement entered by Roshan Munoz MD - 12/03/24 14:42> I have reviewed the note and agree with the resident's assessment & plan with exceptions as below. I have personally reviewed labs, imaging, home meds/prior records, examined the patient, formulated and discussed management plan with the IM team. Patient examined at bedside today. Patient continues to have persistent fevers overnight. Due to patient's worsening abdominal distention despite bowel movements, we will order CT abdomen pelvis with oral contrast at this time. Will not initiate IV contrast due to concern for contrast nephropathy as patient currently has RAMSES. Nephrology on consult, appreciate recommendations. Will continue with IV Tylenol, with 4 g limit within 24-hour. Repeat hematology and chemistry in AM. Oncology on consult, appreciate recommendations. Roshna Munoz, PGY-2 Internal Medicine Documentation for date of: 12/03/24 Subjective Subjective Interval history: Overnight patient noted to be febrile to 104.5, tachycardic to 130s, and tachypneic to 30s this morning, was given another 1 g of IV tyelenol and was given cooling measures. Patient was given IV and oral tylenol. Patient endorsed feeling feverish and chills. Patient denies chest pain, n/v, diarrhea. Exam Vital Signs Temp Pulse Resp BP Pulse Ox O2 Del Method O2 Flow Rate 103.9 F H 132 H 32 H 113/90 H 95 Nasal Cannula 2 12/03/24 09:05 12/03/24 07:41 12/03/24 07:41 12/03/24 07:41 12/03/24 07:41 12/03/24 07:41 12/03/24 07:41 Narrative Exam General: Malay Speaking; mild distress, ill appearing, shivering; A&Ox3 Skin: Warm, dry, intact, no obvious rash. HENT: NCAT, EOMI, not icteric. External ears normal. No rhinorrhea. Moist mucous membranes Cardiovascular: Portacath removal site R chest; Tachycardic, regular rhythm, no murmur, +S1/S2. Respiratory: Lungs CTAB GI: Tender, hard, distended. No guarding or rebound tenderness. Extremities: no edema, no cyanosis, no clubbing. Extremity pulses present Neuro: No focal deficits observed. Conversant, moving all extremities. No overt cerebellar signs/incoordination. Psychiatric: Cooperative, appropriate affect. Objective Labs 12/04/24 04:55 12/04/24 04:55 Labs: Laboratory Results - last 24 hr 12/01/24 12/02/24 12/03/24 01:52 04:39 04:43 WBC 0.5 L* RBC 3.43 L Hgb 9.7 L Hct 28.7 L MCV 84 MCH 28.3 MCHC 33.8 RDW Std Deviation 71.9 H Plt Count < 5 L* D Neut % (Auto) 51 Lymph % (Auto) 28 [place] % (Auto) 13 H Eos % (Auto) 0 Baso % (Auto) 0 Neut # (Auto) 0.2 L Lymph # (Auto) 0.1 L [place] # (Auto) 0.1 Eos # (Auto) 0.0 Baso # (Auto) 0.0 Immature Gran # (Auto) 0.04 H Absolute Nucleated RBC 0.00 Immature Gran % 9 H Nucleated RBC % 0 Sodium 141 Potassium 3.7 Chloride 107 Carbon Dioxide 21.1 Anion Gap 13 BUN 46 H Creatinine 2.3 H Estim Creat Clear Calc 31.6 L eGFR 31 L BUN/Creatinine Ratio 20 Glucose 127 H Calculated Osmolality 295 Calcium 7.9 L Corrected Calcium 8.7 Phosphorus 2.9 Magnesium 1.9 Total Bilirubin 1.3 H AST 133 H ALT 101 H Alkaline Phosphatase 359 H D Total Protein 5.2 L Albumin 3.0 L Globulin 2.2 L Albumin/Globulin Ratio 1.4 Misc Test Result Platelets confirmed Blood Bank Comment PLATP Ready Quality Measures Quality Measures none (holding heparin for low platelets) Assessment & Plan Assessment Current Active Medications: Generic Name Dose Route Start Last Admin Trade Name Javierq PRN Reason Stop Dose Admin Acetaminophen 650 mg 11/29/24 23:41 12/02/24 09:24 Acetaminophen 325 Mg Tablet PO 12/25/24 13:24 650 mg Q4HR PRN Administration Mild Pain 1-3 Or Fever > 100.4 Hydrocodone Bitart/Acetaminophen 1 tab 11/30/24 10:42 Hydrocodone/Apap 5/325 Tablet PO 12/05/24 10:41 Q6HR PRN Pain 4-7 or breakthrough pain Azithromycin 500 mg 12/04/24 09:00 Azithromycin 250 Mg Tablet PO 12/06/24 09:01 QDAY ARI Protocol Benzonatate 100 mg 11/30/24 10:46 11/30/24 14:50 Benzonatate 100 Mg Capsule PO 12/30/24 10:45 100 mg Q8HR PRN Administration COUGH Protocol Calcium Carbonate 600 mg 11/25/24 20:00 12/03/24 09:14 Calcium Carbonate 600 Mg Tablet PO 12/25/24 19:59 600 mg QDAY ARI Administration Dronabinol 2.5 mg 11/29/24 09:35 12/03/24 07:49 Dronabinol 2.5 Mg Capsule PO 12/29/24 09:34 2.5 mg BIDAC ARI Administration Filgrastim 300 mcg 12/01/24 09:00 12/03/24 09:14 Filgrastim Inj (Zarxio) 300 Mcg/0.5 Ml Syringe SC 01/02/25 08:59 300 mcg QDAY ARI Administration Micafungin Sodium 100 mg/ 100 mls @ 100 mls/hr 11/28/24 09:00 12/03/24 09:46 Sodium Chloride IV 12/13/24 08:59 100 mls/hr QDAY ARI Administration Vancomycin HCl 200 mls @ 200 mls/hr 11/30/24 17:00 12/02/24 05:02 Vancomycin/Water 1gm Ivpb IV 12/07/24 16:59 200 mls/hr Q36H ARI Administration Protocol Piperacillin/Tazobactam/Dextrose 3.375 gm in 50 mls @ 12.5 mls/hr 12/02/24 22:00 12/03/24 05:01 Zosyn IV 12/09/24 21:59 12.5 mls/hr Q8HR ARI Administration Protocol Lactated Ringer's 1,000 mls @ 75 mls/hr 12/03/24 08:41 12/03/24 09:13 Lactated Ringers IV 01/02/25 08:40 75 mls/hr .[id number] ARI Administration Pharmacy Consult 1 each 12/01/24 09:19 Vancomycin Pharmacy To Dose 1 Each Each IV 12/30/24 15:29 QDAY PRN PROTOCOL Pharmacy Consult 1 each 12/02/24 16:17 Pharmacy Renal Dose Adjustment 1 Ea XX 01/01/25 16:16 PRN PRN CONSULT Polyethylene Glycol 17 gm 11/26/24 07:16 Polyethylene Glycol 17 Gm Packet PO 12/25/24 18:29 QDAY PRN CONSTIPATION Protocol Plan Elle Garza is a 64-year-old male with a history of 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 Admitted to ICU for management of septic shock; downgraded and found to have neutropenic fever, pancytopenia, s/p port-a-cath removal for potential source of infection; s/p central line. #Sepsis #Pancytopenia #Neutropenic Fever #Community-Acquired Pneumonia Most likely chemotherapy-induced myelosuppression vs bacterial pneumonia vs fungal vs atypical (immunocompromised) 11/29: Given 2 units Platelet transfusion overnight; Port-a-Cath removed Blood/Urine Cx's Negative Dr. Rutledge recommended continuing filgrastim qd until ANC > 1500 consistently - Possible CT AP w/ contrast to look for infection source - Continue Zosyn & Azithromycin, Micafungin, Vancomycin, Filgrastim - Started LR maintenance fluids @ 75mls/hr - Ordered stool cx, wbc, will f/u - Transfuse pRBC if Hgb <7 g/dL; transfuse platelets if less than 5-10K - Daily CBC monitoring. Monitor for new fever or infectious symptoms. - Tylenol PRN (MAX 4 g per 24 hours), cooling measures PRN. #History of Stage IV Small Cell Lung Cancer, Metastatic (liver, bone, adrenal) Diagnosed 2022 and started on chemotherapy and radiation therapy Last follow-up with oncologist November 22 2024, received chemotherapy Based on last oncology note patient had initial good response to chemotherapy, progression on carboplatin and irinotecan (2022), and current third-line therapy with Lubridactin. On November 22 2024, was considering Empower trial for immunotherapy, and possible transfer to [place] for Terlatumab treatment CT abdo/pelvis 11/28/2023 showed numerous hepatic, left adrenal lesions, widespread bone mets Port-a-cath removed 11/30/2024 - Consulted Oncology Dr. Forrester, appreciate recs - Dr. Rutledge following him outpatient & providing recommendations (above) (radiation oncology, Dr. Ugarte) #Acute Kidney Injury Most likely acute tubular necrosis secondary to sepsis and hypotension. Baseline Cr ~1.3; Cr stable around 2.4-2.6 - Nephrology consulted, appreciate recs - Continue to monitor cmp, urine output - Renal dose adjustments for all medications as indicated. - Avoid NSAIDs or other nephrotoxic drugs. #Acute Hypoxic Respiratory Failure, improving Most likely community-acquired pneumonia (supported by imaging and clinical presentation). [id number] diagnosis is pulmonary embolism, given the patient's cancer history and acute hypoxia. Less likely is progression of metastatic lung cancer, as acute infectious findings predominate. Continue daily assessment of respiratory status and oxygen requirements. Monitor for clinical deterioration; consider repeat chest imaging if no improvement. D- dimer and/or CT pulmonary angiography if PE suspected. - On Zosyn 3.375 mg IV q8hr and Micafungin 100 mg IV q day - Wean supplemental oxygen as tolerated. - Monitor for signs of respiratory distress; escalate care if needed. #Transaminitis, improving Most likely ischemic hepatitis secondary to prior septic shock. [id number] diagnosis is acute viral hepatitis, which has been ruled out by negative panel. Less likely is hepatic infiltration by metastases; CT shows lesions but no acute findings. 11/30: AST 244 (291), ALT 197 (259), Alk Phos 319 (283) 12/03: AST 133, ALT 101, Alk Phos 359 - Daily LFTs. Monitor for jaundice or worsening liver function. - Supportive care; avoid hepatotoxic medications. No specific therapy indicated at present. #Hypocalcemia (repleted) Most likely secondary to acute illness and/or chemotherapy vs less likely tumor lysis syndrome. - Monitor calcium and electrolytes daily. - Replete calcium as needed. #New Onset Diabetes Mellitus HbA1c 6.5% - Dietary and lifestyle modifications. - Target glucose 140-180 mg/dL. - Outpatient follow-up with PCP for further management. #Septic Shock (resolved) Hospital Management: Disposition: Tele Diet: Low Microbial GI Prophylaxis: Stopped Protonix 40mg qday Bowel Prophylaxis: Miralax DVT Prophylaxis: HOLD Heparin CODE STATUS: Full Code Patient plan of care was discussed with the attending physician, Dr. Ro & resident physician Dr. Alexander Lowery MD PGY-1 Attending Provider Attestation/Addendum I reviewed labs, imaging, EKG, home medications and prior available records. Face to face evaluation was performed by me. I have personally examined the patient and discussed assessment and plan with the IM team. I reviewed the resident note and agree with the plan with exceptions as below. Acute febrile illness Neutropenic fever Pancytopenia Septic shock: Possibly due to left-sided pneumonia versus Port-A-Cath infection RAMSES, possibly intrinsic in setting of chemotherapy versus shock Ordered repeat CT scan with oral contrast of the abdomen/pelvis that showed possible colitis Ordered DuoNeb for wheezing Patient is still febrile. Source of infection is still unclear. Could be secondary to atypical pneumonia versus port A cath infection Changed antibiotics to levofloxacin and micafungin Continues to spike fevers. Repeat blood cultures are negative to date Removed port a cath by general surgery Trend CBC: Hemoglobin is stable but platelet level dropped for which 1 platelet unit was transfused Continue Neupogen and monitor WBC Consulted oncology Consulted ID who agreed on switching Zosyn to levofloxacin Consulted nephrology agreed with IV fluids Monitor kidney function: Slightly improved. Avoid nephrotoxins
[2024-12-03 13:01] LABS: Slide Review Platelets confirmed
--- NOTE | 2024-12-03 14:58 | PC.SS ---
Rounding: Pending CT with oral contrast, still persistent fevers
[2024-12-03 16:40] LABS: Vancomycin,Trough 9.9 mcg/mL (5.0-10.0)
[2024-12-03] MEDS: VANCOMYCIN/WATER 1GM IVPB 200 ML IV (17:51)
[2024-12-03] MEDS: ALBUTEROL/IPRATROPIUM (Duoneb) RT SOL 3 ML NEBU INH (19:49)
[2024-12-03] MEDS: ACETAMINOPHEN 325 MG TABLET 650 MG PO (21:22)
[2024-12-04] VITALS (14 sets, daily range): BP systolic 99–126; BP diastolic 63–79; PULSE 110–132; RESP 22–30; TEMP 37.2–38.7; O2SAT 91–98; BMI 30.7
[2024-12-04] MEDS: ACETAMINOPHEN 325 MG TABLET 650 MG PO ×2 (05:10→11:52)
[2024-12-04] MEDS: PIPER/TAZO 3.375 GM PREMIX 3.375 GM/50 ML BAG IV (05:10)
[2024-12-04 05:45] LABS: Basophils # (Auto) 0.0 Thou/mm3 (0.0-0.2); Basophils % (Auto) 1 % (0-2.5); Eosinophils # (Auto) 0.0 Thou/mm3 (0.0-0.5); Eosinophils % (Auto) 0 % (0-10); Hematocrit 25.6 % (41.0-53.0); Immature Granulocytes Auto 0.12 Thou/mm3 (0.00-0.00); Lymphocytes # (Auto) 0.1 Thou/mm3 (1.0-4.8); Lymphocytes % (Auto) 10 % (10-50); Mean Corpuscular HGB Conc 32.0 g/dl (31.0-37.0); Mean Corpuscular Hemoglobin 27.5 pg (25.0-35.0); Mean Corpuscular Volume 86 fL (80-100); Monocytes # (Auto) 0.1 Thou/mm3 (0.0-0.8); Monocytes % (Auto) 11 % (0-12); Neutrophils # (Auto) 0.5 Thou/mm3 (1.8-7.7); Neutrophils % (Auto) 63 % (37-80); Nucleated Red Blood Cell # 0.00 Thou/mm3 (0.00-0.00); Nucleated Red Blood Cell % 0 /100 WBC (0); RDW Standard Deviation 74.7 fL (35.1-43.9); Red Blood Count 2.98 Miln/mm3 (4.50-5.90)
[2024-12-04 05:57] LABS: Hemoglobin 8.2 g/dL (13.5-16.0); INR 1.1 (0.9-1.3); Partial Thromboplastin Time 41.3 Seconds (22.0-36.0); Platelet Count 19 Thou/mm3 (140-440); Prothrombin Time 12.1 Seconds (9.0-12.2)
[2024-12-04 05:58] LABS: White Blood Count 0.8 Thou/mm3 (3.8-10.6)
[2024-12-04 06:01] LABS: Slide Review Platelets confirmed
[2024-12-04 06:14] LABS: Alanine Aminotransferase 68 U/L (10-49); Albumin, Serum 2.9 gm/dL (3.4-4.8); Albumin/Globulin Ratio 1.5 (1.2-2.2); Alkaline Phosphatase 258 U/L (46-116); Anion Gap 13 (7-16); Aspartate Amino Transferase 100 U/L (0-34); BUN/Creatinine Ratio 19 Ratio (12-20); Bilirubin,Total 1.2 mg/dL (0.3-1.2); Blood Urea Nitrogen 45 mg/dL (9-23); Calcium 7.6 mg/dL (8.3-10.6); Calcium (Corrected) 8.5 mg/dL (8.5-10.1); Carbon Dioxide 19.7 mMol/L (20.0-31.0); Chloride 107 mMol/L (98-107); Creatinine (Component) 2.4 mg/dL (0.6-1.3); Estimated Creatinine Clearance 30.3 mL/min (>60); Globulin 2.0 gm/dL (2.3-3.5); Glucose 110 mg/dL (74-106); Magnesium 1.8 mg/dL (1.6-2.6); Osmolality,Calculated 291 (275-295); Phosphorous 3.0 mg/dL (2.4-5.1); Potassium 3.8 mMol/L (3.4-5.1); Sodium 140 mMol/L (136-145); Total Protein 4.9 gm/dL (5.7-8.2); eGFR 29 See Note
--- NOTE | 2024-12-04 07:31 | ESPR_ITS ---
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 Rutledge and Dr. Ugarte at [facility] presents to the emergency room with worsening fatigue and a feeling of heaviness in his chest for the past 4 days. His symptoms began after a chemotherapy session on November 22. He is accompanied by his brother, who is providing translation. The patient reports feeling more tired than usual since his last chemotherapy session. He has also had a cough and a subjective fever. He denies shortness of breath. He describes a feeling of heaviness in his chest. His brother notes that the patient's white blood cell count was low on both Friday and Friday before the chemotherapy was administered. The patient's brother reports that the patient was constipated after chemotherapy but has not had diarrhea. There are no sick contacts at home. Patient is not complaining of any chest pain or shortness of breath. 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 12/02/2024: patient seen and examined at bedside, he is shivering and reports feeling very cold. he continued to have fevers overnight to 104, he remains on reverse contact precautions. Cr 2.4 from 2.6, BUN 43 GFR 29. remains tachycardic to 120s and BP is normotensive 12/03/2024: Patient seen and examined at bedside patient is seen with cooling packs underneath and cold towel on forehead he was shivering and fan is on hand he remains febrile to 104. Hematuria noted from Zhao catheter his platelets are less than 5, primary team to give platelets. Creatinine 2.3 BUN 46 he remains tachycardic. 12/04/2024: Patient seen and examined at bedside patient fevers are notably better compared to yesterday Tmax of 103 however patient is currently afebrile, patient remains tachycardic he received 1 unit platelets yesterday platelets bumped to 17 today hematuria improved today in Zhao bag yellow clear, creatinine remains at 2.4, overall he appears clinically improved today compared to yesterday. CTAP with renal calculi noted in the right renal pelvis nonobstructive. continue IV fluids with half-normal saline. Exam Vital Signs Temp Pulse Resp BP Pulse Ox O2 Del Method O2 Flow Rate 99.8 F 125 H 26 H 107/76 95 Nasal Cannula 2 12/04/24 06:07 12/04/24 04:00 12/04/24 04:00 12/04/24 04:00 12/04/24 04:00 12/04/24 04:00 12/04/24 04:00 Narrative Exam GENERAL: frail gentleman in no acute distress-,- shivering, AAO x2, laying in bed, less shivering compared to prior, HEENT: Head AT/ NC. Mucous membranes dry. NECK: Supple, no lymphadenopathy, CARDIOVASCULAR: Sinus tachycardia. Normal S1/S2, + murmmor. No pitting edema of bilateral LEs. s/p removal of chemo port on right upper chest no drainage no dehiscence no pus intact RESPIRATORY: CTAB. No wheezing, rhonchi, crackles. tachypnic. GASTROINTESTINAL: Abdomen less tense, however it remains tympanic, distended, non tender no palpable masses. Bowel sounds present : Zhao catheter noted with clear yellow urine MUSCULOSKELETAL:? No cyanosis or edema, no visible joint swelling. NEUROLOGICAL: CN II-XII grossly intact. No focal deficits. Sensation intact, symmetric. PSYCHIATRIC: Awake and alert, SKIN: No obvious rashes, no jaundice, normal turgor. Objective Labs 12/07/24 05:25 12/07/24 05:25 Labs: Laboratory Results - last 24 hr 12/01/24 12/03/24 12/03/24 01:52 04:43 15:57 WBC RBC Hgb Hct MCV MCH MCHC RDW Std Deviation Plt Count Neut % (Auto) Lymph % (Auto) [place] % (Auto) Eos % (Auto) Baso % (Auto) Neut # (Auto) Lymph # (Auto) [place] # (Auto) Eos # (Auto) Baso # (Auto) Immature Gran # (Auto) Absolute Nucleated RBC Immature Gran % Nucleated RBC % PT INR APTT Sodium Potassium Chloride Carbon Dioxide Anion Gap BUN Creatinine Estim Creat Clear Calc eGFR BUN/Creatinine Ratio Glucose Calculated Osmolality Calcium Corrected Calcium Phosphorus Magnesium Total Bilirubin AST ALT Alkaline Phosphatase Total Protein Albumin Globulin Albumin/Globulin Ratio Vancomycin Trough 9.9 Misc Test Result Platelets confirmed Blood Type A Positive Antibody Screen NEGATIVE Crossmatch See Detail Blood Bank Wristband ID Yes Blood Bank Comment PLATP Ready 12/04/24 04:55 WBC 0.8 L* D RBC 2.98 L Hgb 8.2 L Hct 25.6 L MCV 86 MCH 27.5 MCHC 32.0 RDW Std Deviation 74.7 H Plt Count 19 L* D Neut % (Auto) 63 Lymph % (Auto) 10 [place] % (Auto) 11 Eos % (Auto) 0 Baso % (Auto) 1 Neut # (Auto) 0.5 L Lymph # (Auto) 0.1 L [place] # (Auto) 0.1 Eos # (Auto) 0.0 Baso # (Auto) 0.0 Immature Gran # (Auto) 0.12 H Absolute Nucleated RBC 0.00 Immature Gran % 15 H Nucleated RBC % 0 PT 12.1 INR 1.1 APTT 41.3 H Sodium 140 Potassium 3.8 Chloride 107 Carbon Dioxide 19.7 L Anion Gap 13 BUN 45 H Creatinine 2.4 H Estim Creat Clear Calc 30.3 L eGFR 29 L BUN/Creatinine Ratio 19 Glucose 110 H Calculated Osmolality 291 Calcium 7.6 L Corrected Calcium 8.5 Phosphorus 3.0 Magnesium 1.8 Total Bilirubin 1.2 AST 100 H ALT 68 H Alkaline Phosphatase 258 H D Total Protein 4.9 L Albumin 2.9 L Globulin 2.0 L Albumin/Globulin Ratio 1.5 Vancomycin Trough Misc Test Result Platelets confirmed Blood Type Antibody Screen Crossmatch Blood Bank Wristband ID Blood Bank Comment Quality Measures Quality Measures none (holding heparin for low platelets) Assessment & Plan Assessment Current Active Medications: Generic Name Dose Route Start Last Admin Trade Name Javierq PRN Reason Stop Dose Admin Acetaminophen 650 mg 12/03/24 11:51 12/04/24 05:10 Acetaminophen 325 Mg Tablet PO 12/25/24 13:24 650 mg Q4HR PRN Administration Mild Pain 1-3 Or Fever > 100.4 Hydrocodone Bitart/Acetaminophen 1 tab 11/30/24 10:42 Hydrocodone/Apap 5/325 Tablet PO 12/05/24 10:41 Q6HR PRN Pain 4-7 or breakthrough pain Albuterol/Ipratropium 3 ml 12/03/24 18:33 12/03/24 19:49 Albuterol/Ipratropium (Duoneb) Rt Maryann 3 Ml Nebu INH 01/02/25 18:59 3 ml Q6HRRT PRN Administration wheezing Azithromycin 500 mg 12/04/24 09:00 Azithromycin 250 Mg Tablet PO 12/06/24 09:01 QDAY ARI Protocol Benzonatate 100 mg 11/30/24 10:46 11/30/24 14:50 Benzonatate 100 Mg Capsule PO 12/30/24 10:45 100 mg Q8HR PRN Administration COUGH Protocol Calcium Carbonate 600 mg 11/25/24 20:00 12/03/24 09:14 Calcium Carbonate 600 Mg Tablet PO 12/25/24 19:59 600 mg QDAY ARI Administration Dronabinol 2.5 mg 11/29/24 09:35 12/04/24 07:23 Dronabinol 2.5 Mg Capsule PO 12/29/24 09:34 2.5 mg BIDAC ARI Administration Filgrastim 300 mcg 12/01/24 09:00 12/03/24 09:14 Filgrastim Inj (Zarxio) 300 Mcg/0.5 Ml Syringe SC 01/02/25 08:59 300 mcg QDAY ARI Administration Micafungin Sodium 100 mg/ 100 mls @ 100 mls/hr 11/28/24 09:00 12/03/24 09:46 Sodium Chloride IV 12/13/24 08:59 100 mls/hr QDAY ARI Administration Piperacillin/Tazobactam/Dextrose 3.375 gm in 50 mls @ 12.5 mls/hr 12/02/24 22:00 12/04/24 05:10 Zosyn IV 12/09/24 21:59 12.5 mls/hr Q8HR ARI Administration Protocol Lactated Ringer's 1,000 mls @ 75 mls/hr 12/03/24 08:41 12/03/24 21:24 Lactated Ringers IV 01/02/25 08:40 75 mls/hr .[id number] ARI Administration Pharmacy Consult 1 each 12/02/24 16:17 Pharmacy Renal Dose Adjustment 1 Ea XX 01/01/25 16:16 PRN PRN CONSULT Polyethylene Glycol 17 gm 11/26/24 07:16 Polyethylene Glycol 17 Gm Packet PO 12/25/24 18:29 QDAY PRN CONSTIPATION Protocol Plan Mr. 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 Rutledge and Dr. Ugarte at [facility] presents to the emergency room with worsening fatigue and a feeling of heaviness in his chest admitted to ICU for neutropenic fever. Fevers are slightly improved today compared to yesterday clinically patient appears in less distress less shivering. Cr remains elevated, well above baseline. Recommend continuing IV fluids given patient appears dry on exam, and likely in insensible losses secondary to fever. RAMSES Baseline Cr 1.0, now 2.3 (slightly better) eGFR 29 Ddx: Consider pre vs intra vs post renal etiologies query ATN Dx - BUN/Cr ratio: 18, - Daily CMP - renal US with small kidneys and cortical thinning, no hydronephrosis, no stones - UA 1+ protein, 3+ blood, ?amorphous crystals - Hematuria resolved Zhao bag with clear yellow urine - Nonobstructive renal calculi noted on CTAP, mild hydronephrosis noted Tx - Avoid nephrotoxic medications - strict i and o, patient has good urine output - Recommend half-normal saline 120 cc/h Neutropenic Fever of unkown origin-improving CAP pt continues to spike fevers to 104, tachycardic to 120s, s/p chemo port removal with dr. vasques 11/30. thought to be the nidus of infection Bcx negative continues on abx, onc consulted ID consulted Stage IV metastatic Small cell lung cancer Transaminitis hypoalbuminemia pancytopenia normocytic anemia hematuria likely 2/2-resolved thrombocytopenia (PLT <5) - Received 1 unit platelets yesterday platelets now 19 - management per primary team Plan discussed with nephrology attending Dr. Keith Hagen MD Internal Medicine PGY-1 Attending Provider Attestation/Addendum Patient seen and examined with resident physician Dr. Hagen. Note reviewed, agree with findings and recommendations. Plan of care discussed with at bedside. RAMSES seems to be more prerenal azotemia. Patient still remains very sick looking and extremely fatigued. Zhao catheter with good urine output. Will monitor closely. Continue with gentle IV fluids. Decrease to 75 mL/h Patient with a significant pancytopenia and is on reverse isolation. Platelet transfusion ordered.
[2024-12-04] MEDS: SODIUM CHLORIDE 0.45 % 1,000 ML 120 ML IV ×2 (09:37→17:02)
[2024-12-04] MEDS: MICAFUNGIN SODIUM INJ 100 MG in SODIUM CHLORIDE 0.9% 100 ML IV (09:37)
[2024-12-04] MEDS: CALCIUM CARBONATE 600 MG TABLET PO (09:38)
[2024-12-04] MEDS: AZITHROMYCIN 250 MG TABLET 500 MG PO (09:38)
[2024-12-04] MEDS: FILGRASTIM INJ (ZARXIO) 300 MCG/0.5 ML SYRINGE SC (09:58)
[2024-12-04] MEDS: LEVOFLOXACIN/D5W 750MG IVPB 750 MG/150 ML BAG 100 MG IV (11:39)
--- NOTE | 2024-12-04 11:39 | ESPR_ITS ---
<Statement entered by Roshan Munoz MD - 12/04/24 12:08> I have reviewed the note and agree with the resident's assessment & plan with exceptions as below. I have personally reviewed labs, imaging, home meds/prior records, examined the patient, formulated and discussed management plan with the IM team. Patient examined at bedside today. No acute overnight events. Patient continuing to have low-grade fevers at this time. Due to patient having some diarrheal episodes, will send out for C. difficile, stool cultures including WBCs and ova and parasites with white blood cells. Prognosis remains guarded at this time. Will change IV antibiotics to Levaquin rather than Zosyn for atypical coverage and for possible parasitic coverage. Creatinine continues to be at 2.4. Will avoid nephrotoxic agents. Continuing to trend CMP for elevated transaminases that are downtrending, however we will continue 4 g limit within 24-hour period for Tylenol. Repeat hematology and chemistry in the a.m. Roshan Munoz, PGY-2 Internal Medicine Documentation for date of: 12/04/24 Subjective Subjective Interval history: No acute events overnight. Patient seen and examined at bedside. Vitals and labs reviewed. Patient overnight had improved temperature with Tmax at 100.5 and was tachycardic to 131. Patient this morning appeared in slightly less distress than previous days. Still endorsed being cold and having abdominal pain/tenderness. Patient has had multiple bowel movements, notedd to be white in color and blood tinged. Exam Vital Signs Temp Pulse Resp BP Pulse Ox O2 Del Method O2 Flow Rate 99.9 F 112 H 25 H 101/69 95 Nasal Cannula 3 12/04/24 08:00 12/04/24 09:19 12/04/24 09:19 12/04/24 08:00 12/04/24 09:19 12/04/24 08:00 12/04/24 09:19 Narrative Exam General: Kinyarwanda Speaking; mild distress, ill appearing, shivering; A&Ox3 Skin: Warm, dry, intact, no obvious rash. HENT: NCAT, EOMI, not icteric. External ears normal. No rhinorrhea. Moist mucous membranes Cardiovascular: Portacath removal site R chest; Tachycardic, regular rhythm, no murmur, +S1/S2. Respiratory: Lungs CTAB GI: Tender, hard, distended. No guarding or rebound tenderness. Extremities: no edema, no cyanosis, no clubbing. Extremity pulses present Neuro: No focal deficits observed. Conversant, moving all extremities. No overt cerebellar signs/incoordination. Psychiatric: Cooperative, appropriate affect. Objective Labs 12/04/24 04:55 12/04/24 04:55 Labs: Laboratory Results - last 24 hr 12/01/24 12/03/24 12/03/24 01:52 04:43 15:57 WBC RBC Hgb Hct MCV MCH MCHC RDW Std Deviation Plt Count Neut % (Auto) Lymph % (Auto) [place] % (Auto) Eos % (Auto) Baso % (Auto) Neut # (Auto) Lymph # (Auto) [place] # (Auto) Eos # (Auto) Baso # (Auto) Immature Gran # (Auto) Absolute Nucleated RBC Immature Gran % Nucleated RBC % PT INR APTT Sodium Potassium Chloride Carbon Dioxide Anion Gap BUN Creatinine Estim Creat Clear Calc eGFR BUN/Creatinine Ratio Glucose Calculated Osmolality Calcium Corrected Calcium Phosphorus Magnesium Total Bilirubin AST ALT Alkaline Phosphatase Total Protein Albumin Globulin Albumin/Globulin Ratio Vancomycin Trough 9.9 Misc Test Result Platelets confirmed Blood Type A Positive Antibody Screen NEGATIVE Crossmatch See Detail Blood Bank Wristband ID Yes Blood Bank Comment PLATP Ready 12/04/24 04:55 WBC 0.8 L* D RBC 2.98 L Hgb 8.2 L Hct 25.6 L MCV 86 MCH 27.5 MCHC 32.0 RDW Std Deviation 74.7 H Plt Count 19 L* D Neut % (Auto) 63 Lymph % (Auto) 10 [place] % (Auto) 11 Eos % (Auto) 0 Baso % (Auto) 1 Neut # (Auto) 0.5 L Lymph # (Auto) 0.1 L [place] # (Auto) 0.1 Eos # (Auto) 0.0 Baso # (Auto) 0.0 Immature Gran # (Auto) 0.12 H Absolute Nucleated RBC 0.00 Immature Gran % 15 H Nucleated RBC % 0 PT 12.1 INR 1.1 APTT 41.3 H Sodium 140 Potassium 3.8 Chloride 107 Carbon Dioxide 19.7 L Anion Gap 13 BUN 45 H Creatinine 2.4 H Estim Creat Clear Calc 30.3 L eGFR 29 L BUN/Creatinine Ratio 19 Glucose 110 H Calculated Osmolality 291 Calcium 7.6 L Corrected Calcium 8.5 Phosphorus 3.0 Magnesium 1.8 Total Bilirubin 1.2 AST 100 H ALT 68 H Alkaline Phosphatase 258 H D Total Protein 4.9 L Albumin 2.9 L Globulin 2.0 L Albumin/Globulin Ratio 1.5 Vancomycin Trough Misc Test Result Platelets confirmed Blood Type Antibody Screen Crossmatch Blood Bank Wristband ID Blood Bank Comment Quality Measures Quality Measures none (holding heparin for low platelets) Assessment & Plan Assessment Current Active Medications: Generic Name Dose Route Start Last Admin Trade Name Freq PRN Reason Stop Dose Admin Acetaminophen 650 mg 12/03/24 11:51 12/04/24 05:10 Acetaminophen 325 Mg Tablet PO 12/25/24 13:24 650 mg Q4HR PRN Administration Mild Pain 1-3 Or Fever > 100.4 Hydrocodone Bitart/Acetaminophen 1 tab 11/30/24 10:42 Hydrocodone/Apap 5/325 Tablet PO 12/05/24 10:41 Q6HR PRN Pain 4-7 or breakthrough pain Albuterol/Ipratropium 3 ml 12/04/24 13:00 Albuterol/Ipratropium (Duoneb) Rt Maryann 3 Ml Nebu INH 01/03/25 12:59 Q6HRRT ARI Benzonatate 100 mg 11/30/24 10:46 11/30/24 14:50 Benzonatate 100 Mg Capsule PO 12/30/24 10:45 100 mg Q8HR PRN Administration COUGH Protocol Calcium Carbonate 600 mg 11/25/24 20:00 12/04/24 09:38 Calcium Carbonate 600 Mg Tablet PO 12/25/24 19:59 600 mg QDAY ARI Administration Filgrastim 300 mcg 12/01/24 09:00 12/04/24 09:58 Filgrastim Inj (Zarxio) 300 Mcg/0.5 Ml Syringe SC 01/02/25 08:59 300 mcg QDAY ARI Administration Micafungin Sodium 100 mg/ 100 mls @ 100 mls/hr 11/28/24 09:00 12/04/24 09:37 Sodium Chloride IV 12/13/24 08:59 100 mls/hr QDAY ARI Administration Lactated Ringer's 1,000 mls @ 75 mls/hr 12/03/24 08:41 12/03/24 21:24 Lactated Ringers IV 01/02/25 08:40 75 mls/hr .[id number] ARI Administration Sodium Chloride 1,000 mls @ 120 mls/hr 12/04/24 08:43 12/04/24 09:37 Ns 0.45% IV 12/05/24 09:42 120 mls/hr .[id number] ARI Administration Levofloxacin/Dextrose 750 mg in 150 mls @ 100 mls/hr 12/04/24 10:45 Levaquin Ivpb IV 12/11/24 10:44 Q48H ARI Protocol Pharmacy Consult 1 each 12/02/24 16:17 Pharmacy Renal Dose Adjustment 1 Ea XX 01/01/25 16:16 PRN PRN CONSULT Polyethylene Glycol 17 gm 11/26/24 07:16 Polyethylene Glycol 17 Gm Packet PO 12/25/24 18:29 QDAY PRN CONSTIPATION Protocol Plan Elle Garza is a 64-year-old male with a history of 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 Admitted to ICU for management of septic shock; downgraded and found to have neutropenic fever, pancytopenia, s/p port-a-cath removal for potential source of infection; s/p central line. #Sepsis #Pancytopenia #Neutropenic Fever #Community-Acquired Pneumonia Most likely chemotherapy-induced myelosuppression vs bacterial pneumonia vs fungal vs atypical (immunocompromised) 11/29: Given 2 units Platelet transfusion overnight; Port-a-Cath removed Blood/Urine Cx's Negative Dr. Rutledge recommended continuing filgrastim qd until ANC > 1500 consistently - Started Levaquin 750 mg IV q48hr, stopped zosyn, azithromycin, vancomycin; Continue, Micafungin, Filgrastim - Continuing maintenance fluids - Ordered stool cx, wbc, ova/parasites, cdiff pcr - Transfuse pRBC if Hgb <7 g/dL; transfuse platelets if less than 5-10K - Daily CBC monitoring. Monitor for new fever or infectious symptoms. - Tylenol PRN (MAX 4 g per 24 hours), cooling measures PRN. #History of Stage IV Small Cell Lung Cancer, Metastatic (liver, bone, adrenal) Diagnosed 2022 and started on chemotherapy and radiation therapy Last follow-up with oncologist November 22 2024, received chemotherapy Based on last oncology note patient had initial good response to chemotherapy, progression on carboplatin and irinotecan (2022), and current third-line therapy with Lubridactin. On November 22 2024, was considering Empower trial for immunotherapy, and possible transfer to [place] for Terlatumab treatment CT abdo/pelvis 11/28/2023 showed numerous hepatic, left adrenal lesions, widespread bone mets Port-a-cath removed 11/30/2024 - Consulted Oncology Dr. Forrester, appreciate recs - Dr. Rutledge following him outpatient & providing recommendations (above) (radiation oncology, Dr. Ugarte) #Acute Kidney Injury Most likely acute tubular necrosis secondary to sepsis and hypotension. Baseline Cr ~1.3; Cr stable around 2.4-2.6 - Nephrology consulted, appreciate recs - Continue to monitor cmp, urine output - Renal dose adjustments for all medications as indicated. - Avoid NSAIDs or other nephrotoxic drugs. #Acute Hypoxic Respiratory Failure, improving Most likely community-acquired pneumonia (supported by imaging and clinical presentation). Dyeo-[id number] diagnosis is pulmonary embolism, given the patient's cancer history and acute hypoxia. Less likely is progression of metastatic lung cancer, as acute infectious findings predominate. Continue daily assessment of respiratory status and oxygen requirements. Monitor for clinical deterioration; consider repeat chest imaging if no improvement. D- dimer and/or CT pulmonary angiography if PE suspected. - On levaquin, micafungin. - Wean supplemental oxygen as tolerated. - Monitor for signs of respiratory distress; escalate care if needed. #Transaminitis, improving Most likely ischemic hepatitis secondary to prior septic shock. Gntx-ljc-[id number] diagnosis is acute viral hepatitis, which has been ruled out by negative panel. Less likely is hepatic infiltration by metastases; CT shows lesions but no acute findings. 11/30: AST 244 (291), ALT 197 (259), Alk Phos 319 (283) 12/03: AST 133, ALT 101, Alk Phos 359 - Daily LFTs. Monitor for jaundice or worsening liver function. - Supportive care; avoid hepatotoxic medications. No specific therapy indicated at present. #Hypocalcemia (repleted) Most likely secondary to acute illness and/or chemotherapy vs less likely tumor lysis syndrome. - Monitor calcium and electrolytes daily. - Replete calcium as needed. #New Onset Diabetes Mellitus HbA1c 6.5% - Dietary and lifestyle modifications. - Target glucose 140-180 mg/dL. - Outpatient follow-up with PCP for further management. Hospital Management: Disposition: Tele Diet: Low Microbial GI Prophylaxis: Stopped Protonix 40mg qday Bowel Prophylaxis: Miralax DVT Prophylaxis: HOLD Heparin CODE STATUS: Full Code Patient plan of care was discussed with the attending physician, Dr. Ro & resident physician Dr. Alexander Lowery MD PGY-1 Attending Provider Attestation/Addendum I reviewed labs, imaging, EKG, home medications and prior available records. Face to face evaluation was performed by me. I have personally examined the patient and discussed assessment and plan with the IM team. I reviewed the resident note and agree with the plan with exceptions as below. Acute febrile illness Neutropenic fever Pancytopenia Septic shock: Possibly due to left-sided pneumonia versus Port-A-Cath infection RAMSES, possibly intrinsic in setting of chemotherapy versus shock Ordered repeat CT scan with oral contrast of the abdomen/pelvis that showed possible colitis Ordered DuoNeb for wheezing Patient is still febrile. Source of infection is still unclear but likely secondary to infectious colitis versus atypical pneumonia Changed antibiotics to levofloxacin and micafungin Continues to spike fevers. Repeat blood cultures are negative to date Ordered stool cultures, C. difficile, ova and parasitology Removed port a cath by general surgery Trend CBC: Stable Continue Neupogen and monitor WBC Consulted ID who agreed on switching Zosyn to levofloxacin Consulted nephrology agreed with IV fluids Consulted GI who ordered further workup to rule out hepatitis and to investigate transaminitis Monitor kidney function: Slightly improved. Avoid nephrotoxins
[2024-12-04] MEDS: ALBUTEROL/IPRATROPIUM (Duoneb) RT SOL 3 ML NEBU INH ×2 (12:41→18:41)
--- NOTE | 2024-12-04 13:08 | PD.IMCONS ---
HPI Data of Consult Requesting Physician: Jose Ro MD Primary Care Provider: Physician No Primary/Family Consult Narrative Reason for consult: Abnormal LFTs History of present illness: 64 years old male who has lung carcinoma getting intermittent chemotherapy who has abnormal liver function test and have been consulted He was admitted on 11/25/2024 with nausea vomiting and generalized weakness and received chemotherapy a week before admission cc:: cc: Jose Ro MD Review of Systems Review of Systems Systems Reviewed: All systems reviewed, normal except as documented Meds Home Medications and Allergies Home Medications ?Medication ?Instructions ?Recorded ?Confirmed ?Type No Known Home Medications 12/01/24 12/01/24 History Allergies Allergy/AdvReac Type Severity Reaction Status Date / Time No Known Allergies Allergy Verified 11/25/24 10:10 Exam Vital Signs Temp Pulse Resp BP Pulse Ox O2 Del Method O2 Flow Rate 101.1 F H 125 H 25 H 101/69 98 Nasal Cannula 2 12/04/24 11:52 12/04/24 12:42 12/04/24 12:42 12/04/24 08:00 12/04/24 12:42 12/04/24 08:00 12/04/24 12:42 Constitutional Comments: Chronically ill-appearing Routine Respiratory Exam Comments: Scattered rhonchi Routine Abdominal Exam Comments: Soft nontender positive bowel sounds Results Labs 12/04/24 04:55 12/04/24 04:55 Labs: Short CBC 12/04/24 Range/Units 04:55 WBC 0.8 L* D (3.8-10.6) Thou/mm3 Hgb 8.2 L (13.5-16.0) g/dL Hct 25.6 L (41.0-53.0) % Plt Count 19 L* D (140-440) Thou/mm3 BMP 12/04/24 04:55 Sodium 140 Potassium 3.8 Chloride 107 Carbon Dioxide 19.7 L BUN 45 H Creatinine 2.4 H Glucose 110 H Calcium 7.6 L Liver Function 12/04/24 Range/Units 04:55 Total Bilirubin 1.2 (0.3-1.2) mg/dL AST 100 H (0-34) U/L ALT 68 H (10-49) U/L Alkaline Phosphatase 258 H D (46-116) U/L Albumin 2.9 L (3.4-4.8) gm/dL Assessment and Plan Additional Assessment & Plan Additional Plan: # Abnormal LFTs # Acute hypoxic respiratory failure due to underlying lung carcinoma as well as community-acquired pneumonia # Abdominal bloating # Nausea Plan Will closely monitor the patient Ordered complete workup for underlying abnormal liver function test rule out any evidence of chronic active hepatitis Will follow the patient Thank you very much for the opportunity to participate in care of this patient The records of this patient but not clear as to why the GI consult was called
[2024-12-04 14:46] LABS: Iron 95 mcg/dL (65-175); Percent Iron Saturation 61 % (20-55); Total Iron Binding Capacity 155 mcg/dL (250-425); Unsaturated Iron Binding 60 (225-295)
[2024-12-04] MEDS: ACETAMINOPHEN IVPB 1,000 MG/100 ML VIAL 250 MG IV ×2 (17:01→23:06)
[2024-12-05] VITALS (18 sets, daily range): BP systolic 86–126; BP diastolic 59–78; PULSE 106–131; RESP 16–40; TEMP 37.2–38.7; O2SAT 91–98; BMI 32.5
[2024-12-05] MEDS: ALBUTEROL/IPRATROPIUM (Duoneb) RT SOL 3 ML NEBU INH ×3 (01:11→10:47)
[2024-12-05] MEDS: SODIUM CHLORIDE 0.45 % 1,000 ML 120 ML IV (01:30)
[2024-12-05] MEDS: ACETAMINOPHEN IVPB 1,000 MG/100 ML VIAL 250 MG IV ×2 (05:37→16:57)
[2024-12-05 05:50] LABS: Basophils # (Auto) 0.0 Thou/mm3 (0.0-0.2); Basophils % (Auto) 0 % (0-2.5); Eosinophils # (Auto) 0.0 Thou/mm3 (0.0-0.5); Eosinophils % (Auto) 0 % (0-10); Hematocrit 22.2 % (41.0-53.0); Immature Granulocytes Auto 0.03 Thou/mm3 (0.00-0.00); Lymphocytes # (Auto) 0.1 Thou/mm3 (1.0-4.8); Lymphocytes % (Auto) 6 % (10-50); Mean Corpuscular HGB Conc 33.3 g/dl (31.0-37.0); Mean Corpuscular Hemoglobin 28.4 pg (25.0-35.0); Mean Corpuscular Volume 85 fL (80-100); Monocytes # (Auto) 0.1 Thou/mm3 (0.0-0.8); Monocytes % (Auto) 10 % (0-12); Neutrophils # (Auto) 0.9 Thou/mm3 (1.8-7.7); Neutrophils % (Auto) 81 % (37-80); Nucleated Red Blood Cell # 0.00 Thou/mm3 (0.00-0.00); Nucleated Red Blood Cell % 0 /100 WBC (0); RDW Standard Deviation 72.4 fL (35.1-43.9); Red Blood Count 2.61 Miln/mm3 (4.50-5.90)
[2024-12-05 05:56] LABS: Hemoglobin 7.4 g/dL (13.5-16.0)
[2024-12-05 05:57] LABS: Platelet Count 10 Thou/mm3 (140-440); White Blood Count 1.1 Thou/mm3 (3.8-10.6)
[2024-12-05 05:59] LABS: Slide Review Platelets confirmed
[2024-12-05 06:26] LABS: Alanine Aminotransferase 63 U/L (10-49); Albumin, Serum 2.9 gm/dL (3.4-4.8); Anion Gap 11 (7-16); Aspartate Amino Transferase 105 U/L (0-34); BUN/Creatinine Ratio 20 Ratio (12-20); Bilirubin,Total 1.1 mg/dL (0.3-1.2); Blood Urea Nitrogen 53 mg/dL (9-23); Calcium 7.4 mg/dL (8.3-10.6); Carbon Dioxide 22.0 mMol/L (20.0-31.0); Chloride 105 mMol/L (98-107); Creatinine (Component) 2.6 mg/dL (0.6-1.3); Estimated Creatinine Clearance 28.8 mL/min (>60); Glucose 112 mg/dL (74-106); Magnesium 2.0 mg/dL (1.6-2.6); Osmolality,Calculated 291 (275-295); Phosphorous 2.9 mg/dL (2.4-5.1); Potassium 3.7 mMol/L (3.4-5.1); Sodium 138 mMol/L (136-145); Total Protein 5.0 gm/dL (5.7-8.2); eGFR 27 See Note
[2024-12-05 06:27] LABS: Albumin/Globulin Ratio 1.4 (1.2-2.2); Alkaline Phosphatase 278 U/L (46-116); Calcium (Corrected) 8.3 mg/dL (8.5-10.1); Globulin 2.1 gm/dL (2.3-3.5)
[2024-12-05] MEDS: FILGRASTIM INJ (ZARXIO) 300 MCG/0.5 ML SYRINGE SC (08:56)
[2024-12-05] MEDS: CALCIUM CARBONATE 600 MG TABLET PO (08:57)
[2024-12-05] MEDS: MICAFUNGIN SODIUM INJ 100 MG in SODIUM CHLORIDE 0.9% 100 ML IV (08:57)
--- NOTE | 2024-12-05 09:08 | XR_ITS ---
Examination: AP chest single view. Technique: AP portable sitting chest single view. Date and time: December 05, 2024, 0926 hrs., Comparison December 01, 2024. Indications: Shortness of breath today. Findings: Moderate heart failure. Mild to moderate enlargement cardiac contour, prominent vascular congestion and significant bilateral perihilar edema. Right internal jugular central line tip right atrium Impression: Moderate heart failure.
[2024-12-05] MEDS: RINGERS LACTATED 500 ML 500 ML 999 ML IV (10:01)
[2024-12-05] MEDS: SODIUM CHLORIDE 0.9% 1000 ML 1,000 ML 75 ML IV (10:02)
--- NOTE | 2024-12-05 10:20 | PD.NEPHPROG ---
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 Rutledge and Dr. Ugarte at [facility] presents to the emergency room with worsening fatigue and a feeling of heaviness in his chest for the past 4 days. His symptoms began after a chemotherapy session on November 22. He is accompanied by his brother, who is providing translation. The patient reports feeling more tired than usual since his last chemotherapy session. He has also had a cough and a subjective fever. He denies shortness of breath. He describes a feeling of heaviness in his chest. His brother notes that the patient's white blood cell count was low on both Friday and Friday before the chemotherapy was administered. The patient's brother reports that the patient was constipated after chemotherapy but has not had diarrhea. There are no sick contacts at home. Patient is not complaining of any chest pain or shortness of breath. 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 Notable labs include pancytopenia and a mild metabolic acidosis with a bicarbonate of 18.2. Kidney function is significantly impaired, as shown by a creatinine of 2.0. Liver enzymes are elevated with an AST of 506 and ALT of 555, and the alkaline phosphatase is 175. The procalcitonin is markedly elevated at 10.7. CXR confirms pneumonia. EKG shows sinus tachycardia, along with nonspecific T-wave changes. Later on the patient's condition worsened, becoming hypotensive with a blood pressure of 80/49. A second liter of IV fluids was ordered, and Levophed was initiated to support blood pressure. Once blood pressures improved-he was moved to telemetry. Creatinine started to trend up-nephrology consultation was requested for RAMSES. Patient currently seen in telemetry-in respiratory isolation room. COVID-negative. Patient admitted to hospital for septic shock management in the setting of neutropenic fever. 12/05/2024 patient currently seen in medical floor. In reverse isolation. Very sick looking. Creatinine stable. Patient still making urine. Review of Systems Review of Systems Narrative Review of Systems: Barely arousable. Denies any chest pain. Exam Vital Signs Temp Pulse Resp BP Pulse Ox O2 Del Method O2 Flow Rate 36.4 C 115 H 34 H 125/73 96 Nasal Cannula 4 12/07/24 12:00 12/07/24 12:00 12/07/24 12:00 12/07/24 12:00 12/07/24 12:00 12/07/24 08:00 12/07/24 11:51 Narrative Exam GENERAL: frail gentleman in no acute distress<del>,</del> shivering, AAO x2, laying in bed, HEENT: Head AT/ NC. Mucous membranes dry. NECK: Supple, no lymphadenopathy, CARDIOVASCULAR: Sinus tachycardia. Normal S1/S2, + murmmor. No pitting edema of bilateral LEs. s/p removal of chemo port on right upper chest no drainage no dehiscence no pus intact RESPIRATORY: CTAB. No wheezing, rhonchi, crackles. tachypnic. GASTROINTESTINAL: Abdomen less tense, however it remains tympanic, distended, non tender no palpable masses. Bowel sounds present : Zhao catheter noted with clear yellow urine MUSCULOSKELETAL:? No cyanosis or edema, no visible joint swelling. NEUROLOGICAL: Barely arousable SKIN: No obvious rashes, no jaundice, normal turgor. Objective Labs 12/08/24 05:47 12/08/24 05:47 Labs: Laboratory Results - last 24 hr 12/06/24 12/07/24 12/07/24 12:00 05:25 08:11 WBC 2.0 L RBC 2.46 L Hgb 7.0 L Hct 20.7 L* MCV 84 MCH 28.5 MCHC 33.8 RDW Std Deviation 72.7 H Plt Count 16 L* D Neut % (Auto) 74 Lymph % (Auto) 4 L [place] % (Auto) 13 H Eos % (Auto) 0 Baso % (Auto) 0 Neut # (Auto) 1.5 L Lymph # (Auto) 0.1 L [place] # (Auto) 0.3 Eos # (Auto) 0.0 Baso # (Auto) 0.0 Immature Gran # (Auto) 0.19 H Absolute Nucleated RBC 0.00 Immature Gran % 10 H Nucleated RBC % 0 Puncture Site Right Radial ABG pH 7.46 H ABG pCO2 36 ABG pO2 58 L* ABG HCO3 26 ABG O2 Saturation 92 ABG Base Excess 2 FiO2 21 Sodium 142 Potassium 3.3 L Chloride 103 Carbon Dioxide 26.2 Anion Gap 13 BUN 58 H Creatinine 2.8 H Estim Creat Clear Calc 26.4 L eGFR 24 L BUN/Creatinine Ratio 21 H Glucose 100 Calculated Osmolality 299 H Calcium 7.8 L Corrected Calcium 8.5 Phosphorus 2.8 Magnesium 1.8 Total Bilirubin 1.0 AST 93 H ALT 48 Alkaline Phosphatase 300 H Total Protein 5.2 L Albumin 3.1 L Globulin 2.1 L Albumin/Globulin Ratio 1.5 Misc Test Result Platelets confirmed Blood Bank Comment PLATP Ready ABG Interpretation ABG results: 12/07/24 08:11 ABG pH 7.46 H ABG pCO2 36 ABG pO2 58 L* ABG HCO3 26 ABG O2 Saturation 92 ABG Base Excess 2 Assessment & Plan Assessment and plan (1) RAMSES (acute kidney injury): Status: Acute Assessment and plan: RAMSES most likely related to prerenal azotemia with fluctuations in the blood pressures. His abdomen seems to be distended. Recommended to the nurse to put in a Zhao catheter and monitor urine output closely. Labs/medications reviewed. (2) Septic shock: Status: Acute Assessment and plan: Patient with a septic shock, elevated white count. On pressors which was discontinued. Currently on telemetry. (3) Neutropenic fever: Status: Acute Assessment and plan: Patient with neutropenic fever. Recent chemotherapy. (4) Elevated LFTs: Status: Acute Assessment and plan: Probably from chemotherapy (5) Pneumonia: Status: Acute Assessment and plan: On broad-spectrum antibiotics (6) Pancytopenia: Status: Acute Assessment and plan: Probably from the recent chemotherapy. Might benefit from Neupogen Additional Assessment & Plan Additional Plan: Thank you Jose for allowing me to participate in the care of Mr. Garza Quality - progress note Quality Measures Quality Measures: VTE prophylaxis Reason for Continued Stay Reason for Continued Stay: further monitoring
[2024-12-05] MEDS: FUROSEMIDE INJ 10 MG/ML 4ML VIAL 40 MG IVP ×2 (11:20→17:30)
--- NOTE | 2024-12-05 11:53 | ESPR_ITS ---
Documentation for date of: 12/05/24 Subjective Subjective Interval history: Patient was seen and examined at bedside. Patient today is complaining of shortness of breath, his oxygen requirement increased from 2 to 5 L on nasal cannula. Auscultation he was found to have crepitations bilaterally. We ordered chest x-ray repeat which showed worsening pulmonary congestion. Patient is on IV fluids maintenance by the nephrology team due to decreased oral intake. Serum creatinine still at 2.6. His urine output somehow improved and he had 1200 mL output for the past 24 hours. Will hold on the IV fluids at this time we will give him 1 dose of Lasix 40 mg x2 for the next 24 hrs . If his blood pressure remained stable we will continue the patient on Lasix. Patient oral intake still very limited, risk-benefit of TPN will be discussed with the family probably will start from tomorrow if the patient fluid status and overload improves. His hemoglobin continues to downtrend however his WBC somehow improved to 1.1 from 0.8. Patient continued to spike fever is getting levofloxacin and micafungin. Exam Vital Signs Temp Pulse Resp BP Pulse Ox O2 Del Method O2 Flow Rate 98.9 F 122 H 40 H 108/74 98 Nasal Cannula 5 12/05/24 08:00 12/05/24 11:20 12/05/24 10:48 12/05/24 11:20 12/05/24 10:48 12/05/24 08:00 12/05/24 10:48 Narrative Exam GEN: AOx3, looks ill, pale, dry mucous membrane. HEENT: NC/AC, PERRLA, oral mucosa dry, neck supple CVS: RRR, S1-S2 present, tachypneic no murmurs appreciated RESP: Diffuse bilateral crepitations GI: soft,non distended, non tender, NBS MSK: able to move all 4 limbs, positive lower extremity edema SKIN: warm and dry ADMINISTRATIVE STAFF SUPERVISOR: CN II-XII and Sensation grossly intact. Objective Labs 12/06/24 04:39 12/06/24 04:39 Labs: Laboratory Results - last 24 hr 12/04/24 12/05/24 13:35 05:30 WBC 1.1 L* RBC 2.61 L Hgb 7.4 L Hct 22.2 L MCV 85 MCH 28.4 MCHC 33.3 RDW Std Deviation 72.4 H Plt Count 10 L* D Neut % (Auto) 81 H Lymph % (Auto) 6 L [place] % (Auto) 10 Eos % (Auto) 0 Baso % (Auto) 0 Neut # (Auto) 0.9 L Lymph # (Auto) 0.1 L [place] # (Auto) 0.1 Eos # (Auto) 0.0 Baso # (Auto) 0.0 Immature Gran # (Auto) 0.03 H Absolute Nucleated RBC 0.00 Immature Gran % 3 H Nucleated RBC % 0 Sodium 138 Potassium 3.7 Chloride 105 Carbon Dioxide 22.0 Anion Gap 11 BUN 53 H Creatinine 2.6 H Estim Creat Clear Calc 28.8 L eGFR 27 L BUN/Creatinine Ratio 20 Glucose 112 H Calculated Osmolality 291 Calcium 7.4 L Corrected Calcium 8.3 L Phosphorus 2.9 Magnesium 2.0 Iron 95 TIBC 155 L Iron Saturation 61 H Unsat Iron Binding 60 L Total Bilirubin 1.1 AST 105 H ALT 63 H Alkaline Phosphatase 278 H D Total Protein 5.0 L Albumin 2.9 L Globulin 2.1 L Albumin/Globulin Ratio 1.4 Misc Test Result Platelets confirmed Quality Measures Quality Measures none (holding heparin for low platelets) Assessment & Plan Assessment Current Active Medications: Generic Name Dose Route Start Last Admin Trade Name Freq PRN Reason Stop Dose Admin Acetaminophen 500 mg 12/05/24 09:03 Acetaminophen 500 Mg Tablet PO 01/04/25 09:02 Q6HR PRN FEVER > 101 Benzonatate 100 mg 11/30/24 10:46 11/30/24 14:50 Benzonatate 100 Mg Capsule PO 12/30/24 10:45 100 mg Q8HR PRN Administration COUGH Protocol Calcium Carbonate 600 mg 11/25/24 20:00 12/05/24 08:57 Calcium Carbonate 600 Mg Tablet PO 12/25/24 19:59 600 mg QDAY ARI Administration Filgrastim 300 mcg 12/01/24 09:00 12/05/24 08:56 Filgrastim Inj (Zarxio) 300 Mcg/0.5 Ml Syringe SC 01/02/25 08:59 300 mcg QDAY ARI Administration Micafungin Sodium 100 mg/ 100 mls @ 100 mls/hr 11/28/24 09:00 12/05/24 08:57 Sodium Chloride IV 12/13/24 08:59 100 mls/hr QDAY ARI Administration Levofloxacin/Dextrose 750 mg in 150 mls @ 100 mls/hr 12/04/24 10:45 12/04/24 11:39 Levaquin Ivpb IV 12/11/24 10:44 100 mls/hr Q48H ARI Administration Protocol Sodium Chloride 1,000 mls @ 75 mls/hr 12/05/24 09:07 12/05/24 10:02 Ns IV 01/04/25 10:00 75 mls/hr .[id number] ARI Administration Midodrine 10 mg 12/05/24 09:15 12/05/24 09:57 Midodrine 5 Mg Tablet PO 01/04/25 09:14 Not Given TID ARI Pharmacy Consult 1 each 12/02/24 16:17 Pharmacy Renal Dose Adjustment 1 Ea XX 01/01/25 16:16 PRN PRN CONSULT Polyethylene Glycol 17 gm 11/26/24 07:16 Polyethylene Glycol 17 Gm Packet PO 12/25/24 18:29 QDAY PRN CONSTIPATION Protocol Plan Elle Garza is a 64-year-old male with a history of 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 Admitted to ICU for management of septic shock; downgraded and found to have neutropenic fever, pancytopenia, s/p port-a-cath removal for potential source of infection; s/p central line. #Sepsis most likely secondary to pneumonia versus UTI versus gastroenteritis #Pancytopenia #Bone marrow failure #Neutropenic Fever most likely secondary to pneumonia #Acute hypoxic respiratory failure #Community-Acquired Pneumonia Most likely chemotherapy-induced myelosuppression vs bacterial pneumonia vs fungal vs atypical (immunocompromised) 11/29: Given 2 units Platelet transfusion overnight; Port-a-Cath removed Blood/Urine Cx's Negative in multiple occasions, urine culture is negative. Ordered stool cx, wbc, ova/parasites, cdiff pcr Dr. Rutledge recommended continuing filgrastim qd until ANC > 1500 consistently - Started Levaquin 750 mg IV q48hr, stopped zosyn, azithromycin, vancomycin; - Continue, Micafungin, Filgrastim daily - Transfuse pRBC if Hgb <7 g/dL; transfuse platelets if less than 5-10K or if less at 20,000 with bleeding - Daily CBC monitoring. Monitor for new fever or infectious symptoms. - Tylenol PRN (MAX 4 g per 24 hours), cooling measures PRN. #History of Stage IV Small Cell Lung Cancer, Metastatic (liver, bone, adrenal) #Failure to thrive Diagnosed 2022 and started on chemotherapy and radiation therapy, Last dose November 22 2024, received chemotherapy Based on last oncology note patient had initial good response to chemotherapy, progression on carboplatin and irinotecan (2022), and current third-line therapy with Lubridactin. On November 22 2024, was considering Empower trial for immunotherapy, and possible transfer to [place] for Terlatumab treatment CT abdo/pelvis 11/28/2023 showed numerous hepatic, left adrenal lesions, widespread bone mets Port-a-cath removed 11/30/2024 -Will consider TPN tomorrow after we diurese the patient to help improve his vascular pulmonary congestion - Consulted Oncology Dr. Forrester, appreciate recs - Dr. Rutledge following him outpatient & providing recommendations (above) (radiation oncology, Dr. Ugarte) #Fluid overload #Acute Kidney Injury #Oliguria improving Most likely acute tubular necrosis secondary to sepsis and hypotension. Baseline Cr ~1.3; Cr stable around 2.4-2.6 - Lasix 40 mg IV twice daily for the next 24 hours - Continue strict in and out - Nephrology consulted, appreciate recs - Continue to monitor cmp, urine output - Renal dose adjustments for all medications as indicated. - Avoid NSAIDs or other nephrotoxic drugs. #Transaminitis, improving Most likely ischemic hepatitis secondary to prior septic shock. [id number] diagnosis is acute viral hepatitis, which has been ruled out by negative panel. Less likely is hepatic infiltration by metastases; CT shows lesions but no acute findings. Plan -GI specialist Dr. Galan was consulted, pending recommendations -Follow-up in the acute hepatitis panel including viral marker, serial plasmin, autoimmune antibodies - Daily LFTs. Monitor for jaundice or worsening liver function. - Supportive care; avoid hepatotoxic medications. No specific therapy indicated at present. Will decrease the dose of acetaminophen to 500 mg every 6 hours with max dose of 2 g/day. #Hypocalcemia (repleted) Most likely secondary to acute illness and/or chemotherapy vs less likely tumor lysis syndrome. - Monitor calcium and electrolytes daily. - Replete calcium as needed. #New Onset Diabetes Mellitus HbA1c 6.5% - Dietary and lifestyle modifications. - Target glucose 140-180 mg/dL. - Outpatient follow-up with PCP for further management. Hospital Management: Disposition: Tele Diet: Low Microbial IV lines: PIV, right jugular vein central line GI Prophylaxis: Stopped Protonix 40mg qday Bowel Prophylaxis: Miralax DVT Prophylaxis: HOLD Heparin CODE STATUS: Full Code - Patient's plan and care discussed with my attending, Dr. Jayjay Ojeda MD Internal Medicine PGY-3 Attending Provider Attestation/Addendum I reviewed labs, imaging, EKG, home medications and prior available records. Face to face evaluation was performed by me. I have personally examined the patient and discussed assessment and plan with the IM team. I reviewed the resident note and agree with the plan with exceptions as below. Acute hypoxic respiratory failure Acute febrile illness Neutropenic fever Pancytopenia Septic shock: Possibly due to left-sided pneumonia versus Port-A-Cath infection RAMSES, possibly intrinsic in setting of chemotherapy versus shock Patient experienced respiratory distress. He had worsening oxygen requirements. Ordered chest x-ray that showed pulmonary edema. Ordered IV Lasix Ordered repeat CT scan with oral contrast of the abdomen/pelvis that showed severe colitis, likely source of sepsis versus atypical pneumonia Ordered DuoNeb for wheezing Changed antibiotics to levofloxacin and micafungin Repeat blood cultures are negative to date Ordered stool cultures, C. difficile, ova and parasitology Removed port a cath by general surgery Trend CBC: He has significant pancytopenia. Transfuse as needed and continue to monitor Continue Neupogen and monitor WBC Consulted ID who agreed on switching Zosyn to levofloxacin Consulted nephrology who is following the case Consulted GI who ordered further workup to rule out hepatitis and to investigate transaminitis Monitor kidney function:Avoid nephrotoxins Discussed goals of care: Will continue full treatment for now. He is full code
[2024-12-05 13:59] LABS: Basophils # (Auto) 0.0 Thou/mm3 (0.0-0.2); Basophils % (Auto) 0 % (0-2.5); Eosinophils # (Auto) 0.0 Thou/mm3 (0.0-0.5); Eosinophils % (Auto) 0 % (0-10); Hematocrit 22.9 % (41.0-53.0); Immature Granulocytes Auto 0.01 Thou/mm3 (0.00-0.00); Lymphocytes # (Auto) 0.1 Thou/mm3 (1.0-4.8); Lymphocytes % (Auto) 3 % (10-50); Mean Corpuscular HGB Conc 33.6 g/dl (31.0-37.0); Mean Corpuscular Hemoglobin 28.3 pg (25.0-35.0); Mean Corpuscular Volume 84 fL (80-100); Monocytes # (Auto) 0.2 Thou/mm3 (0.0-0.8); Monocytes % (Auto) 14 % (0-12); Neutrophils # (Auto) 1.4 Thou/mm3 (1.8-7.7); Neutrophils % (Auto) 82 % (37-80); Nucleated Red Blood Cell # 0.00 Thou/mm3 (0.00-0.00); Nucleated Red Blood Cell % 0 /100 WBC (0); RDW Standard Deviation 73.0 fL (35.1-43.9); Red Blood Count 2.72 Miln/mm3 (4.50-5.90); White Blood Count 1.8 Thou/mm3 (3.8-10.6)
[2024-12-05 14:40] LABS: Hemoglobin 7.7 g/dL (13.5-16.0); Platelet Count 13 Thou/mm3 (140-440)
[2024-12-05 14:54] LABS: Slide Review Platelets confirmed
[2024-12-05 15:26] LABS: B-Type Natriuretic Peptide 93 pg/mL (0-100)
[2024-12-05] MEDS: ACETAMINOPHEN 500 MG TABLET PO (15:31)
--- NOTE | 2024-12-05 17:09 | PC.NURSE ---
Patient had temperature of 101.1 at 15:30, oral acetaminophen was administered. Upon recheck at approximately 16:35, temperature had risen to 101.7. Ice packs were applied to patient, sheet removed, and patient socks removed. Dr Hamm was notified and added IV acetaminophen for patient. Will recheck temperature in 1 hour.
--- NOTE | 2024-12-05 17:16 | PD.IMPROG ---
Documentation for date of: 12/05/24 Subjective Subjective Interval history: Pancytopenia with a WBC count of 1.8 hemoglobin hematocrit 7.9 and 22.9 with a platelet count of 13,000 Exam Vital Signs Temp Pulse Resp BP Pulse Ox O2 Del Method O2 Flow Rate 101.7 F H 127 H 29 H 126/72 96 Nasal Cannula 5 12/05/24 16:52 12/05/24 16:00 12/05/24 16:00 12/05/24 16:00 12/05/24 16:00 12/05/24 16:00 12/05/24 16:00 Objective Labs 12/05/24 13:50 12/05/24 05:30 Labs: Laboratory Results - last 24 hr 12/05/24 12/05/24 05:30 13:50 WBC 1.1 L* 1.8 L D RBC 2.61 L 2.72 L Hgb 7.4 L 7.7 L Hct 22.2 L 22.9 L MCV 85 84 MCH 28.4 28.3 MCHC 33.3 33.6 RDW Std Deviation 72.4 H 73.0 H Plt Count 10 L* D 13 L* D Neut % (Auto) 81 H 82 H Lymph % (Auto) 6 L 3 L [place] % (Auto) 10 14 H Eos % (Auto) 0 0 Baso % (Auto) 0 0 Neut # (Auto) 0.9 L 1.4 L Lymph # (Auto) 0.1 L 0.1 L [place] # (Auto) 0.1 0.2 Eos # (Auto) 0.0 0.0 Baso # (Auto) 0.0 0.0 Immature Gran # (Auto) 0.03 H 0.01 H Absolute Nucleated RBC 0.00 0.00 Immature Gran % 3 H 1 H Nucleated RBC % 0 0 Sodium 138 Potassium 3.7 Chloride 105 Carbon Dioxide 22.0 Anion Gap 11 BUN 53 H Creatinine 2.6 H Estim Creat Clear Calc 28.8 L eGFR 27 L BUN/Creatinine Ratio 20 Glucose 112 H Calculated Osmolality 291 Calcium 7.4 L Corrected Calcium 8.3 L Phosphorus 2.9 Magnesium 2.0 Total Bilirubin 1.1 AST 105 H ALT 63 H Alkaline Phosphatase 278 H D B-Natriuretic Peptide 93 Total Protein 5.0 L Albumin 2.9 L Globulin 2.1 L Albumin/Globulin Ratio 1.4 Misc Test Result Platelets confirmed Platelets confirmed Impressions Impression: Chemotherapy related pancytopenia Abnormal LFTs Complete workup ordered Assessment & Plan A&P Narrative # Abnormal LFTs # Acute hypoxic respiratory failure due to underlying lung carcinoma as well as community-acquired pneumonia # Abdominal bloating # Nausea Plan Will closely monitor the patient Ordered complete workup for underlying abnormal liver function test rule out any evidence of chronic active hepatitis Will follow the patient Thank you very much for the opportunity to participate in care of this patient The records of this patient but not clear as to why the GI consult was called Time Spent With Patient Time: Total time spent is greater than 50% in coordination of care (as documented) at patient's floor/unit and/or counseling patient:
[2024-12-05] MEDS: MIRTAZAPINE 15 MG TABLET 7.5 MG PO (21:22)
[2024-12-05 23:21] LABS: AFP Non-Pregnant 4.00 ng/mL (<8.10); Hepatitis A Antibody IgM Non Reactive (Non React); Hepatitis B Core Antibody IgM Non Reactive (Non React); Hepatitis B Surface Antigen Non Reactive (Non React); Hepatitis C Antibody Non Reactive (Non React)
[2024-12-06] VITALS (17 sets, daily range): BP systolic 93–145; BP diastolic 48–86; PULSE 110–125; RESP 15–37; TEMP 36.2–37.3; O2SAT 89–98; BMI 32.8
[2024-12-06 05:37] LABS: Basophils # (Auto) 0.0 Thou/mm3 (0.0-0.2); Basophils % (Auto) 1 % (0-2.5); Eosinophils # (Auto) 0.0 Thou/mm3 (0.0-0.5); Eosinophils % (Auto) 0 % (0-10); Hematocrit 22.4 % (41.0-53.0); Immature Granulocytes Auto 0.10 Thou/mm3 (0.00-0.00); Lymphocytes # (Auto) 0.1 Thou/mm3 (1.0-4.8); Lymphocytes % (Auto) 4 % (10-50); Mean Corpuscular HGB Conc 33.0 g/dl (31.0-37.0); Mean Corpuscular Hemoglobin 28.0 pg (25.0-35.0); Mean Corpuscular Volume 85 fL (80-100); Monocytes # (Auto) 0.2 Thou/mm3 (0.0-0.8); Monocytes % (Auto) 14 % (0-12); Neutrophils # (Auto) 1.2 Thou/mm3 (1.8-7.7); Neutrophils % (Auto) 75 % (37-80); Nucleated Red Blood Cell # 0.00 Thou/mm3 (0.00-0.00); Nucleated Red Blood Cell % 0 /100 WBC (0); RDW Standard Deviation 73.4 fL (35.1-43.9); Red Blood Count 2.64 Miln/mm3 (4.50-5.90); White Blood Count 1.6 Thou/mm3 (3.8-10.6)
[2024-12-06 05:51] LABS: Hemoglobin 7.4 g/dL (13.5-16.0); Platelet Count 5 Thou/mm3 (140-440)
[2024-12-06 06:08] LABS: Alanine Aminotransferase 59 U/L (10-49); Albumin, Serum 2.8 gm/dL (3.4-4.8); Albumin/Globulin Ratio 1.1 (1.2-2.2); Anion Gap 12 (7-16); Aspartate Amino Transferase 98 U/L (0-34); BUN/Creatinine Ratio 19 Ratio (12-20); Bilirubin,Total 1.0 mg/dL (0.3-1.2); Blood Urea Nitrogen 54 mg/dL (9-23); Calcium 7.2 mg/dL (8.3-10.6); Calcium (Corrected) 8.2 mg/dL (8.5-10.1); Carbon Dioxide 22.6 mMol/L (20.0-31.0); Chloride 105 mMol/L (98-107); Creatinine (Component) 2.8 mg/dL (0.6-1.3); Estimated Creatinine Clearance 26.8 mL/min (>60); Globulin 2.5 gm/dL (2.3-3.5); Glucose 98 mg/dL (74-106); Magnesium 2.0 mg/dL (1.6-2.6); Osmolality,Calculated 294 (275-295); Phosphorous 3.0 mg/dL (2.4-5.1); Potassium 3.6 mMol/L (3.4-5.1); Sodium 140 mMol/L (136-145); Total Protein 5.3 gm/dL (5.7-8.2); eGFR 24 See Note
[2024-12-06 06:12] LABS: Alkaline Phosphatase 312 U/L (46-116)
[2024-12-06 06:46] LABS: Slide Review Platelets confirmed
[2024-12-06] MEDS: CALCIUM CARBONATE 600 MG TABLET PO (09:47)
[2024-12-06] MEDS: MICAFUNGIN SODIUM INJ 100 MG in SODIUM CHLORIDE 0.9% 100 ML IV (09:47)
[2024-12-06] MEDS: FILGRASTIM INJ (ZARXIO) 300 MCG/0.5 ML SYRINGE SC (09:48)
[2024-12-06] MEDS: VITAMIN B COMPLEX TABLET 1 TAB PO (09:48)
[2024-12-06] MEDS: LEVOFLOXACIN/D5W 750MG IVPB 750 MG/150 ML BAG 100 MG IV (10:21)
[2024-12-06] MEDS: MEGESTROL ACET SUSP 400 MG/10 ML UDC PO (11:55)
[2024-12-06] MEDS: FUROSEMIDE INJ 10 MG/ML 4ML VIAL 40 MG IVP ×2 (11:56→21:26)
--- NOTE | 2024-12-06 13:04 | ESPR_ITS ---
<Statement entered by Ubaldo Landa MD - 12/06/24 14:50> Mr Kayla is a 64-year-old male with a history of Stage IV Small Cell Lung Cancer, Metastatic (liver, bone, adrenal), who was admitted for neutropenic fever, pancytopenia, s/p port-a-cath removal for potential source of infection; s/p central line placement for antibiotics. Patient is currently having failure to thrive. Oncology recommended continuing filgrastim qd until ANC > 1500 consistently. Currently on Levaquin 750 mg IV q48hr, Micafungin, Filgrastim daily. ANC 1.2 today. Ordered 2 units Platelet transfusion for PLT count of 5. NGT placed, will get soils analyst recs for TF. Will give Lasix 60mg BID for possible congestive nephropathy, anticipate Cr improvement in next 24 hours. Mentation appears to be worsening. Patient examined and case discussed with the team including attending physician Dr Ro. Note reviewed, I agree with the care plan as documented. Please refer to the note below for further details. - Ubaldo Landa MD, PGY 3 Disclaimer: The document may contain phonetic/typographic errors due to voice recognition software. These errors are purely due to imperfections in the software program. Documentation for date of: 12/06/24 Subjective Subjective Interval history: Patient was seen and examined at bedside. Patient was found to be in marked respiratory distress this morning. Per morning nurse, patient was short of breath even going to the bathroom. As a result a bedside commode was instituted. Patient also complains of fatigue. He does not have much of an appetite, and appetite stimulant megesterol 400 mg was ordered. Bilateral crepitations on lung auscultation, patient tachycardic but in sinus rhythm. Patient is on IV fluids maintenance by the nephrology team due to decreased oral intake. Serum creatinine still at 2.8. His urine has been improving and he had about 1700ml output for the past 24 hours. Will hold on the IV fluids at this time we will give him two doses of Lasix 40 mg AM and PM. If his blood pressure remained stable we will continue the patient on Lasix. Patient oral intake still very limited, risk-benefit of TPN will be discussed with the family probably will start from tomorrow if the patient fluid status and overload improves. Hgb and WBC stable at 1.6 and 1.8 respectively. Patient getting levofloxacin and micafungin. Exam Vital Signs Temp Pulse Resp BP Pulse Ox O2 Del Method O2 Flow Rate 98.0 F 117 H 23 H 125/71 95 Nasal Cannula 6 12/06/24 12:00 12/06/24 12:00 12/06/24 12:00 12/06/24 12:00 12/06/24 12:00 12/06/24 08:00 12/06/24 12:00 Narrative Exam GEN: AOx3, looks ill, pale, dry mucous membrane. HEENT: NC/AC, PERRLA, oral mucosa dry, neck supple CVS: RRR, S1-S2 present, tachypneic no murmurs appreciated RESP: Diffuse bilateral crepitations. 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 Objective Labs 12/07/24 05:25 12/07/24 05:25 Labs: Laboratory Results - last 24 hr 12/04/24 12/05/24 12/06/24 13:35 13:50 04:39 WBC 1.8 L D 1.6 L RBC 2.72 L 2.64 L Hgb 7.7 L 7.4 L Hct 22.9 L 22.4 L MCV 84 85 MCH 28.3 28.0 MCHC 33.6 33.0 RDW Std Deviation 73.0 H 73.4 H Plt Count 13 L* D 5 L* D Neut % (Auto) 82 H 75 Lymph % (Auto) 3 L 4 L [place] % (Auto) 14 H 14 H Eos % (Auto) 0 0 Baso % (Auto) 0 1 Neut # (Auto) 1.4 L 1.2 L Lymph # (Auto) 0.1 L 0.1 L [place] # (Auto) 0.2 0.2 Eos # (Auto) 0.0 0.0 Baso # (Auto) 0.0 0.0 Immature Gran # (Auto) 0.01 H 0.10 H Absolute Nucleated RBC 0.00 0.00 Immature Gran % 1 H 6 H Nucleated RBC % 0 0 Sodium 140 Potassium 3.6 Chloride 105 Carbon Dioxide 22.6 Anion Gap 12 BUN 54 H Creatinine 2.8 H Estim Creat Clear Calc 26.8 L eGFR 24 L BUN/Creatinine Ratio 19 Glucose 98 Calculated Osmolality 294 Calcium 7.2 L Corrected Calcium 8.2 L Phosphorus 3.0 Magnesium 2.0 Total Bilirubin 1.0 AST 98 H ALT 59 H Alkaline Phosphatase 312 H D B-Natriuretic Peptide 93 Total Protein 5.3 L Albumin 2.8 L Globulin 2.5 Albumin/Globulin Ratio 1.1 L Tumor Marker AFP 4.00 Hepatitis A IgM Ab Non Reactive Hep Bs Antigen Non Reactive Hep B Core IgM Ab Non Reactive Hepatitis C Antibody Non Reactive Misc Test Result Platelets confirmed Platelets confirmed Quality Measures Quality Measures none (holding heparin for low platelets) Assessment & Plan Assessment Current Active Medications: Generic Name Dose Route Start Last Admin Trade Name Freq PRN Reason Stop Dose Admin Acetaminophen 500 mg 12/05/24 09:03 12/05/24 15:31 Acetaminophen 500 Mg Tablet PO 01/04/25 09:02 500 mg Q6HR PRN Administration FEVER > 101 Benzonatate 100 mg 11/30/24 10:46 11/30/24 14:50 Benzonatate 100 Mg Capsule PO 12/30/24 10:45 100 mg Q8HR PRN Administration COUGH Protocol Calcium Carbonate 600 mg 11/25/24 20:00 12/06/24 09:47 Calcium Carbonate 600 Mg Tablet PO 12/25/24 19:59 600 mg QDAY ARI Administration Filgrastim 300 mcg 12/01/24 09:00 12/06/24 09:48 Filgrastim Inj (Zarxio) 300 Mcg/0.5 Ml Syringe SC 01/02/25 08:59 300 mcg QDAY ARI Administration Furosemide 40 mg 12/06/24 21:00 Furosemide Inj 10 Mg/Ml 4ml Vial IVP 12/06/24 21:01 X1 ONE Micafungin Sodium 100 mg/ 100 mls @ 100 mls/hr 11/28/24 09:00 12/06/24 09:47 Sodium Chloride IV 12/13/24 08:59 100 mls/hr QDAY ARI Administration Levofloxacin/Dextrose 750 mg in 150 mls @ 100 mls/hr 12/04/24 10:45 12/06/24 10:21 Levaquin Ivpb IV 12/11/24 10:44 100 mls/hr Q48H ARI Administration Protocol Megestrol Acetate 400 mg 12/06/24 11:15 12/06/24 11:55 Megestrol Acet Susp 400 Mg/10 Ml Udc PO 01/05/25 11:14 400 mg QDAY ARI Administration Midodrine 10 mg 12/05/24 09:15 12/06/24 05:12 Midodrine 5 Mg Tablet PO 01/04/25 09:14 Not Given TID ARI Mirtazapine 7.5 mg 12/05/24 21:00 12/05/24 21:22 Mirtazapine 15 Mg Tablet PO 01/04/25 20:59 7.5 mg HS ARI Administration Pharmacy Consult 1 each 12/02/24 16:17 Pharmacy Renal Dose Adjustment 1 Ea XX 01/01/25 16:16 PRN PRN CONSULT Polyethylene Glycol 17 gm 11/26/24 07:16 Polyethylene Glycol 17 Gm Packet PO 12/25/24 18:29 QDAY PRN CONSTIPATION Protocol Vitamin B Complex/Vit C/Folic Acid 1 tab 12/06/24 09:00 12/06/24 09:48 Vitamin B Complex Tablet PO 01/05/25 08:59 1 tab QDAY ARI Administration Plan Elle Garza is a 64-year-old male with a history of 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 Admitted to ICU for management of septic shock; downgraded and found to have neutropenic fever, pancytopenia, s/p port-a-cath removal for potential source of infection; s/p central line. #Sepsis most likely secondary to pneumonia versus UTI versus gastroenteritis #Pancytopenia #Bone marrow failure #Neutropenic Fever most likely secondary to pneumonia #Acute hypoxic respiratory failure #Community-Acquired Pneumonia Most likely chemotherapy-induced myelosuppression vs bacterial pneumonia vs fungal vs atypical (immunocompromised) 11/29: Given 2 units Platelet transfusion overnight; Port-a-Cath removed Blood/Urine Cx's Negative in multiple occasions, urine culture is negative. Ordered stool cx, wbc, ova/parasites, cdiff pcr Dr. Rutledge recommended continuing filgrastim qd until ANC > 1500 consistently Plt 5 (12/06), transfused one unit of platelets. - Started Levaquin 750 mg IV q48hr, stopped zosyn, azithromycin, vancomycin; - Continue, Micafungin, Filgrastim daily - Transfuse pRBC if Hgb <7 g/dL; transfuse platelets if less than 5-10K or if less at 20,000 with bleeding - Daily CBC monitoring. Monitor for new fever or infectious symptoms. - Tylenol PRN (MAX 4 g per 24 hours), cooling measures PRN. #History of Stage IV Small Cell Lung Cancer, Metastatic (liver, bone, adrenal) #Failure to thrive Diagnosed 2022 and started on chemotherapy and radiation therapy, Last dose November 22 2024, received chemotherapy Based on last oncology note patient had initial good response to chemotherapy, progression on carboplatin and irinotecan (2022), and current third-line therapy with Lubridactin. On November 22 2024, was considering Empower trial for immunotherapy, and possible transfer to [place] for Terlatumab treatment CT abdo/pelvis 11/28/2023 showed numerous hepatic, left adrenal lesions, widespread bone mets Port-a-cath removed 11/30/2024 -Megestrol 400 mg to stimulate appetite -Started the patient with Jevity 1.2 kcal through NGT -Referral to dietitian -Will consider TPN after we diurese the patient to help improve his vascular pulmonary congestion - Consulted Oncology Dr. Forrester, appreciate recs - Dr. Rutledge following him outpatient & providing recommendations (above) (radiation oncology, Dr. Ugarte) #Fluid overload #Acute Kidney Injury #Congestive Nephropathy #Oliguria improving Most likely acute tubular necrosis secondary to sepsis and hypotension. Baseline Cr ~1.3; Cr stable around 2.4-2.6 Pt received Lasix IV 40mg x2 yesterday, still in marked SOB and Cr trended up to 2.8. - Lasix 60 mg IVP twice daily - ordered albumin 25mg x1 - Fluid intake restricted to 1200mL - Continue strict in and out - Nephrology consulted, appreciate recs - Continue to monitor cmp, urine output - Renal dose adjustments for all medications as indicated. - Avoid NSAIDs or other nephrotoxic drugs. #Transaminitis, improving Most likely ischemic hepatitis secondary to prior septic shock. [id number] diagnosis is acute viral hepatitis, which has been ruled out by negative panel. Less likely is hepatic infiltration by metastases; CT shows lesions but no acute findings. Plan -GI specialist Dr. Galan was consulted, pending recommendations -Follow-up in the acute hepatitis panel including viral marker, serial plasmin, autoimmune antibodies - Daily LFTs. Monitor for jaundice or worsening liver function. - Supportive care; avoid hepatotoxic medications. No specific therapy indicated at present. Will decrease the dose of acetaminophen to 500 mg every 6 hours with max dose of 2 g/day. #Hypocalcemia (repleted) Most likely secondary to acute illness and/or chemotherapy vs less likely tumor lysis syndrome. - Monitor calcium and electrolytes daily. - Replete calcium as needed. #New Onset Diabetes Mellitus HbA1c 6.5% - Dietary and lifestyle modifications. - Target glucose 140-180 mg/dL. - Outpatient follow-up with PCP for further management. Hospital Management: Disposition: Tele Diet: Low Microbial IV lines: PIV, right jugular vein central line GI Prophylaxis: Stopped Protonix 40mg qday Bowel Prophylaxis: Miralax DVT Prophylaxis: HOLD Heparin CODE STATUS: Full Code - This case was discussed with my attending physician, Dr. Ro, and senior resident Dr Landa. Toni Vasquez, DO PGY I Attending Provider Attestation/Addendum I reviewed labs, imaging, EKG, home medications and prior available records. Face to face evaluation was performed by me. I have personally examined the patient and discussed assessment and plan with the IM team. I reviewed the resident note and agree with the plan with exceptions as below. Acute hypoxic respiratory failure Acute febrile illness Neutropenic fever Pancytopenia Septic shock: Possibly due to left-sided pneumonia versus Port-A-Cath infection RAMSES, possibly intrinsic in setting of chemotherapy versus shock Started IV Lasix Patient experienced respiratory distress. He had worsening oxygen requirements. Ordered chest x-ray that showed pulmonary edema. Ordered IV Lasix Ordered repeat CT scan with oral contrast of the abdomen/pelvis that showed severe colitis, likely source of sepsis versus atypical pneumonia Ordered DuoNeb for wheezing Changed antibiotics to levofloxacin and micafungin Repeat blood cultures are negative to date Ordered stool cultures, C. difficile, ova and parasitology Removed port a cath by general surgery Trend CBC: He has significant pancytopenia. Transfuse as needed and continue to monitor Continue Neupogen and monitor WBC Consulted ID who agreed on switching Zosyn to levofloxacin Consulted nephrology who is following the case Consulted GI who ordered further workup to rule out hepatitis and to investigate transaminitis Monitor kidney function:Avoid nephrotoxins Discussed goals of care: Will continue full treatment for now. He is full code
--- NOTE | 2024-12-06 13:12 | PC.RT ---
Rounding: Pending hematology reccs, DC plan home
[2024-12-06] MEDS: ALBUMIN HUMAN 25% IVPB 25 GM/100 ML BTL IV (14:51)
[2024-12-06] MEDS: FUROSEMIDE INJ 10 MG/ML VIAL 2 ML 20 MG IVP (14:51)
[2024-12-06] MEDS: MIDODRINE 5 MG TABLET 10 MG PO ×2 (15:21→21:26)
--- NOTE | 2024-12-06 15:22 | PC.DIETICIAN ---
Nutrition prescription TwoCal HN at 20 ml/hr via NG tube by pump. Advance 10 ml every 8 hrs to goal rate of 40 ml/hr x 24 hrs. If no IV fluids, water flushes of 20 ml/hr (or per MD).
--- NOTE | 2024-12-06 18:31 | PC.NURSE ---
Patient refused NGT, he stated that he will eat more but does not want ng tube placed. Dr. LIM made aware, he is okay with patient's wishes.
--- NOTE | 2024-12-06 19:38 | PD.IMPROG ---
Documentation for date of: 12/06/24 Subjective Subjective Interval history: Complete workup ordered for the abnormal LFTs to rule out chronic active hepatitis Exam Vital Signs Temp Pulse Resp BP Pulse Ox O2 Del Method O2 Flow Rate 98.0 F 111 H 20 101/72 90 L Nasal Cannula 4 12/06/24 17:00 12/06/24 17:00 12/06/24 17:00 12/06/24 17:00 12/06/24 17:00 12/06/24 16:00 12/06/24 17:00 Objective Labs 12/06/24 04:39 12/06/24 04:39 Labs: Laboratory Results - last 24 hr 12/04/24 12/06/24 12/06/24 13:35 04:39 12:00 WBC 1.6 L RBC 2.64 L Hgb 7.4 L Hct 22.4 L MCV 85 MCH 28.0 MCHC 33.0 RDW Std Deviation 73.4 H Plt Count 5 L* D Neut % (Auto) 75 Lymph % (Auto) 4 L [place] % (Auto) 14 H Eos % (Auto) 0 Baso % (Auto) 1 Neut # (Auto) 1.2 L Lymph # (Auto) 0.1 L [place] # (Auto) 0.2 Eos # (Auto) 0.0 Baso # (Auto) 0.0 Immature Gran # (Auto) 0.10 H Absolute Nucleated RBC 0.00 Immature Gran % 6 H Nucleated RBC % 0 Sodium 140 Potassium 3.6 Chloride 105 Carbon Dioxide 22.6 Anion Gap 12 BUN 54 H Creatinine 2.8 H Estim Creat Clear Calc 26.8 L eGFR 24 L BUN/Creatinine Ratio 19 Glucose 98 Calculated Osmolality 294 Calcium 7.2 L Corrected Calcium 8.2 L Phosphorus 3.0 Magnesium 2.0 Total Bilirubin 1.0 AST 98 H ALT 59 H Alkaline Phosphatase 312 H D Total Protein 5.3 L Albumin 2.8 L Globulin 2.5 Albumin/Globulin Ratio 1.1 L Tumor Marker AFP 4.00 Hepatitis A IgM Ab Non Reactive Hep Bs Antigen Non Reactive Hep B Core IgM Ab Non Reactive Hepatitis C Antibody Non Reactive Misc Test Result Platelets confirmed Blood Bank Comment PLATP Ready Impressions Impression: Stage IV metastatic lung carcinoma Abnormal LFTs Sepsis Failure to thrive Continue current management Assessment & Plan A&P Narrative # Abnormal LFTs # Acute hypoxic respiratory failure due to underlying lung carcinoma as well as community-acquired pneumonia # Abdominal bloating # Nausea Plan Will closely monitor the patient Ordered complete workup for underlying abnormal liver function test rule out any evidence of chronic active hepatitis Will follow the patient Thank you very much for the opportunity to participate in care of this patient The records of this patient but not clear as to why the GI consult was called Time Spent With Patient Time: Total time spent is greater than 50% in coordination of care (as documented) at patient's floor/unit and/or counseling patient:
[2024-12-06] MEDS: MIRTAZAPINE 15 MG TABLET 7.5 MG PO (21:27)
[2024-12-07] VITALS (11 sets, daily range): BP systolic 113–129; BP diastolic 51–91; PULSE 109–121; RESP 23–42; TEMP 36.3–37.3; O2SAT 90–96; BMI 31.6
[2024-12-07 05:39] LABS: Basophils # (Auto) 0.0 Thou/mm3 (0.0-0.2); Basophils % (Auto) 0 % (0-2.5); Eosinophils # (Auto) 0.0 Thou/mm3 (0.0-0.5); Eosinophils % (Auto) 0 % (0-10); Hematocrit 20.7 % (41.0-53.0); Immature Granulocytes Auto 0.19 Thou/mm3 (0.00-0.00); Lymphocytes # (Auto) 0.1 Thou/mm3 (1.0-4.8); Lymphocytes % (Auto) 4 % (10-50); Mean Corpuscular HGB Conc 33.8 g/dl (31.0-37.0); Mean Corpuscular Hemoglobin 28.5 pg (25.0-35.0); Mean Corpuscular Volume 84 fL (80-100); Monocytes # (Auto) 0.3 Thou/mm3 (0.0-0.8); Monocytes % (Auto) 13 % (0-12); Neutrophils # (Auto) 1.5 Thou/mm3 (1.8-7.7); Neutrophils % (Auto) 74 % (37-80); Nucleated Red Blood Cell # 0.00 Thou/mm3 (0.00-0.00); Nucleated Red Blood Cell % 0 /100 WBC (0); RDW Standard Deviation 72.7 fL (35.1-43.9); Red Blood Count 2.46 Miln/mm3 (4.50-5.90); White Blood Count 2.0 Thou/mm3 (3.8-10.6)
[2024-12-07 05:58] LABS: Hemoglobin 7.0 g/dL (13.5-16.0); Platelet Count 16 Thou/mm3 (140-440)
[2024-12-07 06:00] LABS: Alanine Aminotransferase 48 U/L (10-49); Albumin, Serum 3.1 gm/dL (3.4-4.8); Albumin/Globulin Ratio 1.5 (1.2-2.2); Alkaline Phosphatase 300 U/L (46-116); Anion Gap 13 (7-16); Aspartate Amino Transferase 93 U/L (0-34); BUN/Creatinine Ratio 21 Ratio (12-20); Bilirubin,Total 1.0 mg/dL (0.3-1.2); Blood Urea Nitrogen 58 mg/dL (9-23); Calcium 7.8 mg/dL (8.3-10.6); Calcium (Corrected) 8.5 mg/dL (8.5-10.1); Carbon Dioxide 26.2 mMol/L (20.0-31.0); Chloride 103 mMol/L (98-107); Creatinine (Component) 2.8 mg/dL (0.6-1.3); Estimated Creatinine Clearance 26.4 mL/min (>60); Globulin 2.1 gm/dL (2.3-3.5); Glucose 100 mg/dL (74-106); Magnesium 1.8 mg/dL (1.6-2.6); Osmolality,Calculated 299 (275-295); Phosphorous 2.8 mg/dL (2.4-5.1); Potassium 3.3 mMol/L (3.4-5.1); Sodium 142 mMol/L (136-145); Total Protein 5.2 gm/dL (5.7-8.2); eGFR 24 See Note
--- NOTE | 2024-12-07 07:26 | PD.ONCCONS ---
HPI Data of Consult Requesting Physician: Jose Ro MD Primary Care Provider: Physician No Primary/Family Consult Narrative Reason for consult: Stage IV small cell lung CA History of present illness: Patient is a 64-year-old gentleman with initial limited to chest had chemoradiation 5400 centigrade completed 02/10/2023. Recurrence was noted clinically and according to imaging studies and had additional radiation therapy to L1 region completed 02/10/2023. Progression with new chemo orders lurbinectin under Dr. Rutledge's direction. Came into ER 11/25/2024 with complaints of shortness of breath and chest pain. Patient with low white count neutrophils and low platelets along with fever. Filgrastim was given daily until ANC greater than 1500. Also on antibiotics Levaquin and and micafungin. Patient noted also to have rising LFTs and hepatitis profile is being checked. Patient now referred for oncological consultation. cc:: cc: Jose Ro MD Past Medical History Family History OTHER FAMILY HX: Father of lung cancer 2008 1 sister had breast cancer paternal uncle had prostate cancer Past Medical History Comments PMH COMMENT: None other than the major small cell cancer. Meds Home Medications and Allergies Home Medications ?Medication ?Instructions ?Recorded ?Confirmed ?Type No Known Home Medications 12/01/24 12/01/24 History Allergies Allergy/AdvReac Type Severity Reaction Status Date / Time No Known Allergies Allergy Verified 11/25/24 10:10 Exam Vital Signs Temp Pulse Resp BP Pulse Ox O2 Del Method O2 Flow Rate 99.1 F 109 H 35 H 126/91 H 92 L Nasal Cannula 4 12/07/24 04:00 12/07/24 05:10 12/07/24 04:00 12/07/24 05:10 12/07/24 04:00 12/07/24 04:00 12/07/24 04:00 Narrative Exam Appears tired but comfortable Results Labs 12/07/24 05:25 12/07/24 05:25 Labs: Short CBC 12/07/24 Range/Units 05:25 WBC 2.0 L (3.8-10.6) Thou/mm3 Hgb 7.0 L (13.5-16.0) g/dL Hct 20.7 L* (41.0-53.0) % Plt Count 16 L* D (140-440) Thou/mm3 BMP 12/07/24 05:25 Sodium 142 Potassium 3.3 L Chloride 103 Carbon Dioxide 26.2 BUN 58 H Creatinine 2.8 H Glucose 100 Calcium 7.8 L Liver Function 12/07/24 Range/Units 05:25 Total Bilirubin 1.0 (0.3-1.2) mg/dL AST 93 H (0-34) U/L ALT 48 (10-49) U/L Alkaline Phosphatase 300 H (46-116) U/L Albumin 3.1 L (3.4-4.8) gm/dL Assessment and Plan Additional Assessment & Plan Additional Plan: A#1. Small cell CA of the lung initially limited now extensive prior chemoradiation now receiving additional chemo with Dr. Rutledge at the cancer treatment center A#2. Admitted with pancytopenia neutropenic fever receiving antibiotics micafungin filgrastim platelet transfusions. A#3. Abnormal LFTs Dr. Galan has seen patient and workup for chronic active hepatitis in progress.
--- NOTE | 2024-12-07 07:59 | XR_ITS ---
Examination: AP chest single view Technique one AP portable semiupright chest single view Date and time: December 07, 2024 0819 hours, comparison December 05, 2024 INDICATIONS: Septic shock today. FINDINGS: Bilateral perihilar left basilar pneumonia. Right internal jugular central line tip right atrium Mild prominence left ventricle Moderate vascular congestion. Prominent osteopenia IMPRESSION: Bilateral perihilar left basilar pneumonia.
[2024-12-07 08:22] LABS: Slide Review Platelets confirmed
[2024-12-07] MEDS: FILGRASTIM INJ (ZARXIO) 300 MCG/0.5 ML SYRINGE SC (08:26)
[2024-12-07 08:27] LABS: Base Excess 2 (-3-3); HCO3 26 mEq/L (20-26); Inspired Oxygen, FIO2 21 %; O2 Saturation 92 % (91-98); PCO2 36 mmHg (32.0-48.0); pH, Arterial 7.46 (7.35-7.45)
[2024-12-07] MEDS: POTASSIUM CHL 10 mEq IVPB 10 MEQ/100 ML BAG 150 MEQ IV (08:34)
[2024-12-07 08:44] LABS: Allen Test Performed/OK; PO2 58 mmHg (83-108); Puncture Site Right Radial
[2024-12-07] MEDS: POTASSIUM CHL 20 mEq IVPB 100 ML 50 MEQ IV (09:46)
[2024-12-07] MEDS: VITAMIN B COMPLEX TABLET 1 TAB PO (09:50)
[2024-12-07] MEDS: MEGESTROL ACET SUSP 400 MG/10 ML UDC PO (09:50)
[2024-12-07] MEDS: CALCIUM CARBONATE 600 MG TABLET PO (09:50)
[2024-12-07] MEDS: MICAFUNGIN SODIUM INJ 100 MG in SODIUM CHLORIDE 0.9% 100 ML IV (09:57)
--- NOTE | 2024-12-07 10:00 | ESPR_ITS ---
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 Rutledge and Dr. Ugarte at [facility] presents to the emergency room with worsening fatigue and a feeling of heaviness in his chest for the past 4 days. His symptoms began after a chemotherapy session on November 22. He is accompanied by his brother, who is providing translation. The patient reports feeling more tired than usual since his last chemotherapy session. He has also had a cough and a subjective fever. He denies shortness of breath. He describes a feeling of heaviness in his chest. His brother notes that the patient's white blood cell count was low on both Friday and Friday before the chemotherapy was administered. The patient's brother reports that the patient was constipated after chemotherapy but has not had diarrhea. There are no sick contacts at home. Patient is not complaining of any chest pain or shortness of breath. 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 12/02/2024: patient seen and examined at bedside, he is shivering and reports feeling very cold. he continued to have fevers overnight to 104, he remains on reverse contact precautions. Cr 2.4 from 2.6, BUN 43 GFR 29. remains tachycardic to 120s and BP is normotensive 12/03/2024: Patient seen and examined at bedside patient is seen with cooling packs underneath and cold towel on forehead he was shivering and fan is on hand he remains febrile to 104. Hematuria noted from Zhao catheter his platelets are less than 5, primary team to give platelets. Creatinine 2.3 BUN 46 he remains tachycardic. 12/04/2024: Patient seen and examined at bedside patient fevers are notably better compared to yesterday Tmax of 103 however patient is currently afebrile, patient remains tachycardic he received 1 unit platelets yesterday platelets bumped to 17 today hematuria improved today in Zhao bag yellow clear, creatinine remains at 2.4, overall he appears clinically improved today compared to yesterday. CTAP with renal calculi noted in the right renal pelvis nonobstructive. continue IV fluids with half-normal saline. 12/07/2024: Labs reviewed and patient examined at the bedside. Patient currently afebrile. Cr 2.8 and Urine Output of 3750mL. Continue to monitor for renal improvement. BP: 129/85 Exam Vital Signs Temp Pulse Resp BP Pulse Ox O2 Del Method O2 Flow Rate 97.3 F 117 H 26 H 129/85 H 90 L Nasal Cannula 4 12/07/24 08:00 12/07/24 08:00 12/07/24 08:00 12/07/24 08:00 12/07/24 08:00 12/07/24 08:00 12/07/24 08:00 Narrative Exam GENERAL: Sick looking gentleman seen in reverse isolation. HEENT: Head AT/ NC. Mucous membranes dry. NECK: Supple, no lymphadenopathy, CARDIOVASCULAR: Sinus tachycardia. Normal S1/S2, + murmur. No pitting edema of bilateral LEs. s/p removal of chemo port on right upper chest no drainage no dehiscence no pus intact RESPIRATORY: CTAB. No wheezing, rhonchi, crackles. tachypnic. GASTROINTESTINAL: Abdomen less tense, however it remains tympanic, distended, non tender no palpable masses. Bowel sounds present : Zhao catheter noted with clear yellow urine MUSCULOSKELETAL:? No cyanosis or edema, no visible joint swelling. NEUROLOGICAL: Patient barely arousable. SKIN: No obvious rashes, no jaundice, normal turgor. Objective Labs 12/07/24 05:25 12/07/24 05:25 Labs: Laboratory Results - last 24 hr 12/06/24 12/07/24 12/07/24 12:00 05:25 08:11 WBC 2.0 L RBC 2.46 L Hgb 7.0 L Hct 20.7 L* MCV 84 MCH 28.5 MCHC 33.8 RDW Std Deviation 72.7 H Plt Count 16 L* D Neut % (Auto) 74 Lymph % (Auto) 4 L [place] % (Auto) 13 H Eos % (Auto) 0 Baso % (Auto) 0 Neut # (Auto) 1.5 L Lymph # (Auto) 0.1 L [place] # (Auto) 0.3 Eos # (Auto) 0.0 Baso # (Auto) 0.0 Immature Gran # (Auto) 0.19 H Absolute Nucleated RBC 0.00 Immature Gran % 10 H Nucleated RBC % 0 Puncture Site Right Radial ABG pH 7.46 H ABG pCO2 36 ABG pO2 58 L* ABG HCO3 26 ABG O2 Saturation 92 ABG Base Excess 2 FiO2 21 Sodium 142 Potassium 3.3 L Chloride 103 Carbon Dioxide 26.2 Anion Gap 13 BUN 58 H Creatinine 2.8 H Estim Creat Clear Calc 26.4 L eGFR 24 L BUN/Creatinine Ratio 21 H Glucose 100 Calculated Osmolality 299 H Calcium 7.8 L Corrected Calcium 8.5 Phosphorus 2.8 Magnesium 1.8 Total Bilirubin 1.0 AST 93 H ALT 48 Alkaline Phosphatase 300 H Total Protein 5.2 L Albumin 3.1 L Globulin 2.1 L Albumin/Globulin Ratio 1.5 Misc Test Result Platelets confirmed Blood Bank Comment PLATP Ready ABG Interpretation ABG results: 12/07/24 08:11 ABG pH 7.46 H ABG pCO2 36 ABG pO2 58 L* ABG HCO3 26 ABG O2 Saturation 92 ABG Base Excess 2 Quality Measures Quality Measures none (holding heparin for low platelets) Assessment & Plan Assessment Current Active Medications: Generic Name Dose Route Start Last Admin Trade Name Freq PRN Reason Stop Dose Admin Acetaminophen 500 mg 12/05/24 09:03 12/05/24 15:31 Acetaminophen 500 Mg Tablet PO 01/04/25 09:02 500 mg Q6HR PRN Administration FEVER > 101 Benzonatate 100 mg 11/30/24 10:46 11/30/24 14:50 Benzonatate 100 Mg Capsule PO 12/30/24 10:45 100 mg Q8HR PRN Administration COUGH Protocol Calcium Carbonate 600 mg 11/25/24 20:00 12/07/24 09:50 Calcium Carbonate 600 Mg Tablet PO 12/25/24 19:59 600 mg QDAY ARI Administration Filgrastim 300 mcg 12/01/24 09:00 12/07/24 08:26 Filgrastim Inj (Zarxio) 300 Mcg/0.5 Ml Syringe SC 01/02/25 08:59 300 mcg QDAY ARI Administration Furosemide 40 mg 12/07/24 10:00 Furosemide Inj 10 Mg/Ml 4ml Vial IVP 01/06/25 09:59 BIDD ARI Micafungin Sodium 100 mg/ 100 mls @ 100 mls/hr 11/28/24 09:00 12/07/24 09:57 Sodium Chloride IV 12/13/24 08:59 100 mls/hr QDAY ARI Administration Levofloxacin/Dextrose 750 mg in 150 mls @ 100 mls/hr 12/04/24 10:45 12/06/24 10:21 Levaquin Ivpb IV 12/11/24 10:44 100 mls/hr Q48H ARI Administration Protocol Potassium Chloride 100 mls @ 50 mls/hr 12/07/24 09:30 12/07/24 09:46 Kcl Ivpb IV 12/07/24 11:29 50 mls/hr X1 ONE Administration Megestrol Acetate 400 mg 12/06/24 11:15 12/07/24 09:50 Megestrol Acet Susp 400 Mg/10 Ml Udc PO 01/05/25 11:14 400 mg QDAY ARI Administration Midodrine 10 mg 12/05/24 09:15 12/07/24 05:10 Midodrine 5 Mg Tablet PO 01/04/25 09:14 Not Given TID ARI Mirtazapine 7.5 mg 12/05/24 21:00 12/06/24 21:27 Mirtazapine 15 Mg Tablet PO 01/04/25 20:59 7.5 mg HS ARI Administration Pharmacy Consult 1 each 12/02/24 16:17 Pharmacy Renal Dose Adjustment 1 Ea XX 01/01/25 16:16 PRN PRN CONSULT Polyethylene Glycol 17 gm 11/26/24 07:16 Polyethylene Glycol 17 Gm Packet PO 12/25/24 18:29 QDAY PRN CONSTIPATION Protocol Vitamin B Complex/Vit C/Folic Acid 1 tab 12/06/24 09:00 12/07/24 09:50 Vitamin B Complex Tablet PO 01/05/25 08:59 1 tab QDAY ARI Administration Plan Mr. 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 Rutledge and Dr. Ugarte at [facility] presents to the emergency room with worsening fatigue and a feeling of heaviness in his chest admitted to ICU for neutropenic fever. Fevers are slightly improved today compared to yesterday clinically patient appears in less distress less shivering. Cr remains elevated, well above baseline. RAMSES Baseline Cr 1.0, now 2.8 Ddx: Consider pre vs intra vs post renal etiologies Dx - Daily CMP - renal US with small kidneys and cortical thinning, no hydronephrosis, no stones - UA 1+ protein, 3+ blood, ?amorphous crystals - Hematuria resolved Zhao bag with clear yellow urine - Nonobstructive renal calculi noted on CTAP, mild hydronephrosis noted - 12/07: BP: 129/85 Cr: 2.8 BUN: 58 Urine Output: 3750mL eGFR:24 Tx - Avoid nephrotoxic medications - strict i and o, patient has good urine output - Continue to monitor renal improvement Neutropenic Fever of unkown origin-improving CAP pt continues to spike fevers to 104, tachycardic to 120s, s/p chemo port removal with dr. vasques 11/30. thought to be the nidus of infection Bcx negative continues on abx, onc consulted ID consulted Stage IV metastatic Small cell lung cancer Transaminitis hypoalbuminemia pancytopenia normocytic anemia hematuria likely 2/2-resolved thrombocytopenia (PLT <5) - Received 1 unit platelets yesterday platelets now 19 - management per primary team Assessment and plan discussed with my attending physician Dr. Keith Small (PGY-1)- Internal medicine resident Attending Provider Attestation/Addendum Patient seen and examined with resident physician Dr. Small. Note reviewed, agree with findings and recommendations. Plan of care discussed with at bedside. RAMSES seems to be more prerenal azotemia. Patient still remains very sick looking and extremely fatigued. Barely arousable. Zhao catheter with good urine output. Will monitor closely. Off IV fluids. Needs some nutritional support-probably an NG tube. Spoke to primary team/Dr. Ro-might need BiPAP after ABG was drawn. Patient with a significant pancytopenia and is on reverse isolation. Platelet transfusion prn given
[2024-12-07] MEDS: FUROSEMIDE INJ 10 MG/ML 4ML VIAL 40 MG IVP (12:00)
--- NOTE | 2024-12-07 14:56 | ESPR_ITS ---
<Statement entered by lBaise Ponce MD - 12/07/24 17:18> No acute overnight events. Seen and examined at bedside. Patient appeared lethargic in a.m., unclear if fatigued or hypercapnic and thus ABG and repeat CXR were obtained. ABG showed PO2 of 58 and repeat CXR largely unchanged from before but does have some more infiltrate in left lower lobe. Had GOC discussion with familly today regarding patient's code status and will give them time to discuss amongst themselves prior to making a decision. Will schedule lasix 80 mg IV BID as patient appears to be less fluid overloaded and has good urine output, being -2 L within last 24 hours. ANC also > 1500 and so DC'd Filgrastim and also started oral diet given that patient did eat food brought in by family. ----- Note reviewed and agree with care plan as documented. Please refer to the note below for further details. Plan discussed with attending physician Dr. Jayjay Ponce MD PGY-2 Internal Medicine Documentation for date of: 12/07/24 Subjective Subjective Interval history: Patient was seen and examined at bedside. Patient was found to be in marked respiratory distress this morning. He is very lethargic and does not respond to loud call of this provider in the room. He only opens his eyes little bit and them falls back into sleep. Pt refused NGT placement for feeding. Bilateral crepitations on lung auscultation, patient tachycardic but in sinus rhythm. Patient oral intake still very limited, risk-benefit of TPN will be discussed with the family if the patient fluid status and overload improves. Discussed goals of care with the patient. Will continue with full treatment for now as patient is full code. Exam Vital Signs Temp Pulse Resp BP Pulse Ox O2 Del Method O2 Flow Rate 97.5 F 115 H 34 H 125/73 96 Nasal Cannula 4 12/07/24 12:00 12/07/24 12:00 12/07/24 12:12/07/24 14:06 12/07/24 12:12/07/24 08:12/07/24 11:51 Narrative Exam GEN: AOx3, looks ill, pale, dry mucous membrane. HEENT: NC/AC, PERRLA, oral mucosa dry, neck supple CVS: RRR, S1-S2 present, tachypneic no murmurs appreciated RESP: Diffuse bilateral crepitations. GI: soft,non distended, non tender, NBS MSK: able to move all 4 limbs, positive lower extremity edema SKIN: warm and dry SWITCHER: CN II-XII and Sensation grossly intact. Objective Labs 12/07/24 05:25 12/07/24 05:25 Labs: Laboratory Results - last 24 hr 12/06/24 12/07/24 12/07/24 12:00 05:25 08:11 WBC 2.0 L RBC 2.46 L Hgb 7.0 L Hct 20.7 L* MCV 84 MCH 28.5 MCHC 33.8 RDW Std Deviation 72.7 H Plt Count 16 L* D Neut % (Auto) 74 Lymph % (Auto) 4 L [place] % (Auto) 13 H Eos % (Auto) 0 Baso % (Auto) 0 Neut # (Auto) 1.5 L Lymph # (Auto) 0.1 L [place] # (Auto) 0.3 Eos # (Auto) 0.0 Baso # (Auto) 0.0 Immature Gran # (Auto) 0.19 H Absolute Nucleated RBC 0.00 Immature Gran % 10 H Nucleated RBC % 0 Puncture Site Right Radial ABG pH 7.46 H ABG pCO2 36 ABG pO2 58 L* ABG HCO3 26 ABG O2 Saturation 92 ABG Base Excess 2 FiO2 21 Sodium 142 Potassium 3.3 L Chloride 103 Carbon Dioxide 26.2 Anion Gap 13 BUN 58 H Creatinine 2.8 H Estim Creat Clear Calc 26.4 L eGFR 24 L BUN/Creatinine Ratio 21 H Glucose 100 Calculated Osmolality 299 H Calcium 7.8 L Corrected Calcium 8.5 Phosphorus 2.8 Magnesium 1.8 Total Bilirubin 1.0 AST 93 H ALT 48 Alkaline Phosphatase 300 H Total Protein 5.2 L Albumin 3.1 L Globulin 2.1 L Albumin/Globulin Ratio 1.5 Misc Test Result Platelets confirmed Blood Bank Comment PLATP Ready ABG Interpretation ABG results: 12/07/24 08:11 ABG pH 7.46 H ABG pCO2 36 ABG pO2 58 L* ABG HCO3 26 ABG O2 Saturation 92 ABG Base Excess 2 Quality Measures Quality Measures none (holding heparin for low platelets) Assessment & Plan Assessment Current Active Medications: Generic Name Dose Route Start Last Admin Trade Name Freq PRN Reason Stop Dose Admin Acetaminophen 500 mg 12/05/24 09:03 12/05/24 15:31 Acetaminophen 500 Mg Tablet PO 01/04/25 09:02 500 mg Q6HR PRN Administration FEVER > 101 Benzonatate 100 mg 11/30/24 10:46 11/30/24 14:50 Benzonatate 100 Mg Capsule PO 12/30/24 10:45 100 mg Q8HR PRN Administration COUGH Protocol Calcium Carbonate 600 mg 11/25/24 20:00 12/07/24 09:50 Calcium Carbonate 600 Mg Tablet PO 12/25/24 19:59 600 mg QDAY ARI Administration Furosemide 80 mg 12/07/24 18:00 Furosemide Inj 10 Mg/Ml 4ml Vial IVP 01/06/25 17:59 BIDD ARI Micafungin Sodium 100 mg/ 100 mls @ 100 mls/hr 11/28/24 09:00 12/07/24 09:57 Sodium Chloride IV 12/13/24 08:59 100 mls/hr QDAY ARI Administration Levofloxacin/Dextrose 750 mg in 150 mls @ 100 mls/hr 12/04/24 10:45 12/06/24 10:21 Levaquin Ivpb IV 12/11/24 10:44 100 mls/hr Q48H ARI Administration Protocol Megestrol Acetate 400 mg 12/06/24 11:15 12/07/24 09:50 Megestrol Acet Susp 400 Mg/10 Ml Udc PO 01/05/25 11:14 400 mg QDAY ARI Administration Midodrine 10 mg 12/05/24 09:15 12/07/24 14:06 Midodrine 5 Mg Tablet PO 01/04/25 09:14 Not Given TID ARI Mirtazapine 7.5 mg 12/05/24 21:00 12/06/24 21:27 Mirtazapine 15 Mg Tablet PO 01/04/25 20:59 7.5 mg HS ARI Administration Pharmacy Consult 1 each 12/02/24 16:17 Pharmacy Renal Dose Adjustment 1 Ea XX 01/01/25 16:16 PRN PRN CONSULT Polyethylene Glycol 17 gm 11/26/24 07:16 Polyethylene Glycol 17 Gm Packet PO 12/25/24 18:29 QDAY PRN CONSTIPATION Protocol Vitamin B Complex/Vit C/Folic Acid 1 tab 12/06/24 09:00 12/07/24 09:50 Vitamin B Complex Tablet PO 01/05/25 08:59 1 tab QDAY ARI Administration Plan Elle Garza is a 64-year-old male with a history of 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 Admitted to ICU for management of septic shock; downgraded and found to have neutropenic fever, pancytopenia, s/p port-a-cath removal for potential source of infection; s/p central line. #Sepsis most likely secondary to pneumonia versus UTI versus gastroenteritis #Pancytopenia #Bone marrow failure #Neutropenic Fever most likely secondary to pneumonia #Acute hypoxic respiratory failure #Community-Acquired Pneumonia Most likely chemotherapy-induced myelosuppression vs bacterial pneumonia vs fungal vs atypical (immunocompromised) 11/29: Given 2 units Platelet transfusion overnight; Port-a-Cath removed Blood/Urine Cx's Negative in multiple occasions, urine culture is negative. Ordered stool cx, wbc, ova/parasites, cdiff pcr ? Dr. Rutledge recommended continuing filgrastim qd until ANC > 1500 consistently; ANC 1680 (12/07) ? Plt 5 (12/06), transfused one unit of platelets -> 16 (12/07) ? Patient meets 3/4 SIRS criteria HR 120 (>90), RR 23 (>20), WBC 2 (<4) ++ organ dysfunction Cr 2.8 >2, Plt 16 <100, and elevated LFT ++ PNA as the source of infection =severe sepsis ? ABG showed pO2 58 (12/07) ? CXR (12/07): b/l perihilar Lt basilar pneumonia and moderate vascular congestion - Started Levaquin 750 mg IV q48hr, stopped zosyn, azithromycin, vancomycin; - Continue, Micafungin, - Discontinued Filgrastim daily as ANC 1680 >1500 - Transfuse pRBC if Hgb <7 g/dL; transfuse platelets if less than 5-10K or if less at 20,000 with bleeding - Daily CBC monitoring. Monitor for new fever or infectious symptoms. - Tylenol PRN (MAX 4 g per 24 hours), cooling measures PRN. #History of Stage IV Small Cell Lung Cancer, Metastatic (liver, bone, adrenal) #Failure to thrive #Malnutrition Diagnosed 2022 and started on chemotherapy and radiation therapy, Last dose November 22 2024, received chemotherapy Based on last oncology note patient had initial good response to chemotherapy, progression on carboplatin and irinotecan (2022), and current third-line therapy with Lubridactin. On November 22 2024, was considering Empower trial for immunotherapy, and possible transfer to [place] for Terlatumab treatment CT abdo/pelvis 11/28/2023 showed numerous hepatic, left adrenal lesions, widespread bone mets Port-a-cath removed 11/30/2024 Total Protein 5.2 (9/) Patient eats food brought in by family Plan: -Referral to dietitian -Will consider TPN after we diurese the patient to help improve his vascular pulmonary congestion - Consulted Oncology Dr. Forrester, appreciate recs - Dr. Rutledge following him outpatient & providing recommendations (above) (radiation oncology, Dr. Ugarte) #Fluid overload #Congestive Nephropathy #Acute Kidney Injury #Oliguria improving #Pulmonary Edema Most likely acute tubular necrosis secondary to sepsis and hypotension. Baseline Cr ~1.3; Cr stable around 2.4-2.6 Pt received Lasix IV 60mg x2 yesterday, still in marked SOB and Cr trended up to 2.8. 12/07: BP:129/85 Cr: 2.8 BUN: 58 Urine Output: 3750mL eGFR:24 Tx - Avoid nephrotoxic medications - strict i and o, patient has good urine output - Continue to monitor renal improvement - increased Lasix to 80 mg IVP twice daily - ordered albumin 25mg x1 - Fluid intake restricted to 1200mL - Continue strict in and out - Nephrology consulted, appreciate recs - Continue to monitor cmp, urine output - Renal dose adjustments for all medications as indicated. - Avoid NSAIDs or other nephrotoxic drugs. #Transaminitis, improving Most likely ischemic hepatitis secondary to prior septic shock. [id number] diagnosis is acute viral hepatitis, which has been ruled out by negative panel. Less likely is hepatic infiltration by metastases; CT shows lesions but no acute findings. Plan -GI specialist Dr. Galan was consulted, pending recommendations -Follow-up in the acute hepatitis panel including viral marker, serial plasmin, autoimmune antibodies - pending TERESSA and anti-mitochondrial Ab - Daily LFTs. Monitor for jaundice or worsening liver function. - Supportive care; avoid hepatotoxic medications. No specific therapy indicated at present. Will decrease the dose of acetaminophen to 500 mg every 6 hours with max dose of 2 g/day. #Hypocalcemia (repleted) Most likely secondary to acute illness and/or chemotherapy vs less likely tumor lysis syndrome. - Monitor calcium and electrolytes daily. - Replete calcium as needed. #New Onset Diabetes Mellitus HbA1c 6.5% - Dietary and lifestyle modifications. - Target glucose 140-180 mg/dL. - Outpatient follow-up with PCP for further management. Hospital Management: Disposition: Tele, pending hospice placement Diet: Low Microbial IV lines: PIV, right jugular vein central line GI Prophylaxis: Stopped Protonix 40mg qday Bowel Prophylaxis: Miralax DVT Prophylaxis: HOLD Heparin CODE STATUS: Full Code - This case was discussed with my attending physician, Dr. Ro, and senior resident Dr Landa. Toni Vasquez, DO PGY I Attending Provider Attestation/Addendum I reviewed labs, imaging, EKG, home medications and prior available records. Face to face evaluation was performed by me. I have personally examined the patient and discussed assessment and plan with the IM team. I reviewed the resident note and agree with the plan with exceptions as below. Acute hypoxic respiratory failure Acute febrile illness Neutropenic fever Pancytopenia Septic shock: Possibly due to left-sided pneumonia versus Port-A-Cath infection RAMSES, possibly intrinsic in setting of chemotherapy versus shock Started IV Lasix. Increased Lasix to 80 mg IV twice daily Patient experienced respiratory distress. He had worsening oxygen requirements. Ordered chest x-ray that showed pulmonary edema. Ordered IV Lasix Ordered repeat CT scan with oral contrast of the abdomen/pelvis that showed severe colitis, likely source of sepsis versus atypical pneumonia Ordered DuoNeb for wheezing Changed antibiotics to levofloxacin and micafungin Repeat blood cultures are negative to date Ordered stool cultures, C. difficile, ova and parasitology Removed port a cath by general surgery Trend CBC: He has significant pancytopenia. Transfuse as needed and continue to monitor Finish Neupogen as absolute neutrophil count is now 1.5 Consulted ID who agreed on switching Zosyn to levofloxacin Consulted nephrology who is following the case Consulted GI who ordered further workup to rule out hepatitis and to investigate transaminitis Monitor kidney function:Avoid nephrotoxins Discussed goals of care: Will continue full treatment for now. He is full code
--- NOTE | 2024-12-07 15:39 | PC.PT ---
Patient was approached for PT eval at 12:15. Patient was lethargic upon approach. Per RN and at bedside, patient has been like this all morning and has been difficult to arouse. Patient has good and bad days per RN where he is more awake. Per RN hold PT eval for today. Will re-attempt PT eval at another time when patient is more alert and awake.
[2024-12-07] MEDS: FUROSEMIDE INJ 10 MG/ML 4ML VIAL 80 MG IVP (18:16)
--- NOTE | 2024-12-07 18:59 | PD.IMPROG ---
Documentation for date of: 12/07/24 Subjective Subjective Interval history: Downward trending hemoglobin hematocrit in the setting of pancytopenia secondary to chemotherapy No signs of any active bleeding LFTs shows total bilirubin 1.0 AST ALT 93 and 48 and alk phos of 300 Exam Vital Signs Temp Pulse Resp BP Pulse Ox O2 Del Method O2 Flow Rate 98.3 F 119 H 24 H 117/87 H 92 L Nasal Cannula 4 12/07/24 16:00 12/07/24 18:16 12/07/24 16:00 12/07/24 18:16 12/07/24 16:00 12/07/24 16:00 12/07/24 16:00 Objective Labs 12/07/24 05:25 12/07/24 05:25 Labs: Laboratory Results - last 24 hr 12/07/24 12/07/24 05:25 08:11 WBC 2.0 L RBC 2.46 L Hgb 7.0 L Hct 20.7 L* MCV 84 MCH 28.5 MCHC 33.8 RDW Std Deviation 72.7 H Plt Count 16 L* D Neut % (Auto) 74 Lymph % (Auto) 4 L [place] % (Auto) 13 H Eos % (Auto) 0 Baso % (Auto) 0 Neut # (Auto) 1.5 L Lymph # (Auto) 0.1 L [place] # (Auto) 0.3 Eos # (Auto) 0.0 Baso # (Auto) 0.0 Immature Gran # (Auto) 0.19 H Absolute Nucleated RBC 0.00 Immature Gran % 10 H Nucleated RBC % 0 Puncture Site Right Radial ABG pH 7.46 H ABG pCO2 36 ABG pO2 58 L* ABG HCO3 26 ABG O2 Saturation 92 ABG Base Excess 2 FiO2 21 Sodium 142 Potassium 3.3 L Chloride 103 Carbon Dioxide 26.2 Anion Gap 13 BUN 58 H Creatinine 2.8 H Estim Creat Clear Calc 26.4 L eGFR 24 L BUN/Creatinine Ratio 21 H Glucose 100 Calculated Osmolality 299 H Calcium 7.8 L Corrected Calcium 8.5 Phosphorus 2.8 Magnesium 1.8 Total Bilirubin 1.0 AST 93 H ALT 48 Alkaline Phosphatase 300 H Total Protein 5.2 L Albumin 3.1 L Globulin 2.1 L Albumin/Globulin Ratio 1.5 Misc Test Result Platelets confirmed Impressions Impression: Metastatic lung carcinoma Pancytopenia Abnormal LFTs Continue current management ABG Interpretation ABG results: 12/07/24 08:11 ABG pH 7.46 H ABG pCO2 36 ABG pO2 58 L* ABG HCO3 26 ABG O2 Saturation 92 ABG Base Excess 2 Assessment & Plan A&P Narrative A#1. Small cell CA of the lung initially limited now extensive prior chemoradiation now receiving additional chemo with Dr. Rutledge at the cancer treatment center A#2. Admitted with pancytopenia neutropenic fever receiving antibiotics micafungin filgrastim platelet transfusions. A#3. Abnormal LFTs Dr. Galan has seen patient and workup for chronic active hepatitis in progress. Time Spent With Patient Time: Total time spent is greater than 50% in coordination of care (as documented) at patient's floor/unit and/or counseling patient:
[2024-12-07] MEDS: MIRTAZAPINE 15 MG TABLET 7.5 MG PO (21:57)
[2024-12-08] VITALS (22 sets, daily range): BP systolic 106–128; BP diastolic 67–94; PULSE 100–127; RESP 18–35; TEMP 36.4–38.5; O2SAT 90–97; BMI 31.6; BMI 11.0
[2024-12-08] MEDS: ACETAMINOPHEN 500 MG TABLET PO ×2 (00:57→21:30)
[2024-12-08] MEDS: BENZONATATE 100 MG CAPSULE PO (00:58)
[2024-12-08 06:12] LABS: Basophils # (Auto) 0.0 Thou/mm3 (0.0-0.2); Basophils % (Auto) 1 % (0-2.5); Eosinophils # (Auto) 0.0 Thou/mm3 (0.0-0.5); Eosinophils % (Auto) 0 % (0-10); Hematocrit 21.9 % (41.0-53.0); Immature Granulocytes Auto 0.34 Thou/mm3 (0.00-0.00); Lymphocytes # (Auto) 0.1 Thou/mm3 (1.0-4.8); Lymphocytes % (Auto) 4 % (10-50); Mean Corpuscular HGB Conc 32.9 g/dl (31.0-37.0); Mean Corpuscular Hemoglobin 28.0 pg (25.0-35.0); Mean Corpuscular Volume 85 fL (80-100); Monocytes # (Auto) 0.2 Thou/mm3 (0.0-0.8); Monocytes % (Auto) 11 % (0-12); Neutrophils # (Auto) 1.3 Thou/mm3 (1.8-7.7); Neutrophils % (Auto) 67 % (37-80); Nucleated Red Blood Cell # 0.00 Thou/mm3 (0.00-0.00); Nucleated Red Blood Cell % 0 /100 WBC (0); RDW Standard Deviation 73.1 fL (35.1-43.9); Red Blood Count 2.57 Miln/mm3 (4.50-5.90); White Blood Count 2.0 Thou/mm3 (3.8-10.6)
[2024-12-08 06:24] LABS: Hemoglobin 7.2 g/dL (13.5-16.0); Platelet Count 9 Thou/mm3 (140-440)
[2024-12-08 06:34] LABS: Alanine Aminotransferase 47 U/L (10-49); Albumin, Serum 3.2 gm/dL (3.4-4.8); Albumin/Globulin Ratio 1.3 (1.2-2.2); Alkaline Phosphatase 287 U/L (46-116); Anion Gap 11 (7-16); Aspartate Amino Transferase 92 U/L (0-34); BUN/Creatinine Ratio 23 Ratio (12-20); Bilirubin,Total 0.9 mg/dL (0.3-1.2); Blood Urea Nitrogen 59 mg/dL (9-23); Calcium 8.1 mg/dL (8.3-10.6); Calcium (Corrected) 8.7 mg/dL (8.5-10.1); Carbon Dioxide 28.7 mMol/L (20.0-31.0); Chloride 102 mMol/L (98-107); Creatinine (Component) 2.6 mg/dL (0.6-1.3); Estimated Creatinine Clearance 28.4 mL/min (>60); Globulin 2.4 gm/dL (2.3-3.5); Glucose 116 mg/dL (74-106); Magnesium 1.8 mg/dL (1.6-2.6); Osmolality,Calculated 300 (275-295); Phosphorous 3.5 mg/dL (2.4-5.1); Potassium 3.4 mMol/L (3.4-5.1); Sodium 142 mMol/L (136-145); Thyroid Stimulating Hormone 2.13 uIU/mL (0.55-4.78); Total Protein 5.6 gm/dL (5.7-8.2); eGFR 27 See Note
[2024-12-08] MEDS: MIDODRINE 5 MG TABLET 10 MG PO (06:36)
[2024-12-08] MEDS: FUROSEMIDE INJ 10 MG/ML 4ML VIAL 80 MG IVP ×2 (06:37→18:10)
--- NOTE | 2024-12-08 07:39 | PC.NURSE ---
spoke with MD Nancy Richards regarding patient 2 episodes of bradycardia (@04:59 - 43 bpm and @05:31 - 37 bpm with a duration of 1-2 minutes), verified with MD regarding Scheduled 0600 medications, Lasix 80 mg and Midodrine 10 mg with protocol of hold if SBP >100, MD instructed to give Lasix and midodrine together, care continued.
[2024-12-08] MEDS: ALBUMIN HUMAN 25% IVPB 25 GM/100 ML BTL IV (09:31)
[2024-12-08] MEDS: Magnesium Sulfate 2 GM Ivpb 2 GM/50 ML BAG IV (09:31)
[2024-12-08] MEDS: MICAFUNGIN SODIUM INJ 100 MG in SODIUM CHLORIDE 0.9% 100 ML IV (09:32)
[2024-12-08] MEDS: POTASSIUM CHL 10 mEq IVPB 10 MEQ/100 ML BAG 100 MEQ IV ×2 (09:32→11:05)
[2024-12-08] MEDS: CALCIUM CARBONATE 600 MG TABLET PO (09:32)
[2024-12-08] MEDS: MEGESTROL ACET SUSP 400 MG/10 ML UDC PO (09:32)
[2024-12-08] MEDS: VITAMIN B COMPLEX TABLET 1 TAB PO (09:32)
--- NOTE | 2024-12-08 09:35 | ESPR_ITS ---
Documentation for date of: 12/08/24 Subjective Subjective Interval history: per ICU H and P Mr Garza is a 63 yo gentleman with a hx of 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 Rutledge and Dr. Ugarte at [facility] presents to the emergency room with worsening fatigue and a feeling of heaviness in his chest for the past 4 days. His symptoms began after a chemotherapy session on November 22. He is accompanied by his brother, who is providing translation. The patient reports feeling more tired than usual since his last chemotherapy session. He has also had a cough and a subjective fever. He denies shortness of breath. He describes a feeling of heaviness in his chest. His brother notes that the patient's white blood cell count was low on both Friday and Friday before the chemotherapy was administered. The patient's brother reports that the patient was constipated after chemotherapy but has not had diarrhea. There are no sick contacts at home. Patient is not complaining of any chest pain or shortness of breath. 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 12/02/2024: patient seen and examined at bedside, he is shivering and reports feeling very cold. he continued to have fevers overnight to 104, he remains on reverse contact precautions. Cr 2.4 from 2.6, BUN 43 GFR 29. remains tachycardic to 120s and BP is normotensive 12/03/2024: Patient seen and examined at bedside patient is seen with cooling packs underneath and cold towel on forehead he was shivering and fan is on hand he remains febrile to 104. Hematuria noted from Zhao catheter his platelets are less than 5, primary team to give platelets. Creatinine 2.3 BUN 46 he remains tachycardic. 12/04/2024: Patient seen and examined at bedside patient fevers are notably better compared to yesterday Tmax of 103 however patient is currently afebrile, patient remains tachycardic he received 1 unit platelets yesterday platelets bumped to 17 today hematuria improved today in Zhao bag yellow clear, creatinine remains at 2.4, overall he appears clinically improved today compared to yesterday. CTAP with renal calculi noted in the right renal pelvis nonobstructive. continue IV fluids with half-normal saline. 12/07/2024: Labs reviewed and patient examined at the bedside. Patient currently afebrile. Cr 2.8 and Urine Output of 3750mL. Continue to monitor for renal improvement. BP: 129/85 12/08/2024: Patient afebrile, but remaining tachycardic. Patient continues with dry cough. Patient's urine looks clear yellow. BP 107/67 Cr:2.6 BUN:59, eGFR:27, Urine output:4175mL. Patient makes optimal amount of urine and creatine levels stable. Continue to monitor for renal improvement. Continue supportive care. Exam Vital Signs Temp Pulse Resp BP Pulse Ox O2 Del Method O2 Flow Rate 97.8 F 104 H 19 128/71 94 L Nasal Cannula 4 12/08/24 08:00 12/08/24 08:00 12/08/24 08:00 12/08/24 08:00 12/08/24 08:00 12/08/24 08:00 12/08/24 08:00 Narrative Exam GENERAL: Sick looking gentleman seen in reverse isolation. HEENT: Head AT/ NC. Mucous membranes dry. NECK: Supple, no lymphadenopathy, CARDIOVASCULAR: Sinus tachycardia. Normal S1/S2, + murmur. No pitting edema of bilateral LEs. s/p removal of chemo port on right upper chest no drainage no dehiscence no pus intact RESPIRATORY: CTAB. No wheezing, rhonchi, crackles. tachypnic. GASTROINTESTINAL: Abdomen less tense, however it remains tympanic, distended, non tender no palpable masses. Bowel sounds present : Zhao catheter noted with clear yellow urine MUSCULOSKELETAL:? No cyanosis or edema, no visible joint swelling. NEUROLOGICAL: Patient barely arousable. SKIN: No obvious rashes, no jaundice, normal turgor. Objective Labs 12/08/24 05:47 12/08/24 05:47 Labs: Laboratory Results - last 24 hr 12/08/24 05:47 WBC 2.0 L RBC 2.57 L Hgb 7.2 L Hct 21.9 L* MCV 85 MCH 28.0 MCHC 32.9 RDW Std Deviation 73.1 H Plt Count 9 L* D Neut % (Auto) 67 Lymph % (Auto) 4 L [place] % (Auto) 11 Eos % (Auto) 0 Baso % (Auto) 1 Neut # (Auto) 1.3 L Lymph # (Auto) 0.1 L [place] # (Auto) 0.2 Eos # (Auto) 0.0 Baso # (Auto) 0.0 Immature Gran # (Auto) 0.34 H Absolute Nucleated RBC 0.00 Immature Gran % 17 H Nucleated RBC % 0 Sodium 142 Potassium 3.4 Chloride 102 Carbon Dioxide 28.7 Anion Gap 11 BUN 59 H Creatinine 2.6 H Estim Creat Clear Calc 28.4 L eGFR 27 L BUN/Creatinine Ratio 23 H Glucose 116 H Calculated Osmolality 300 H Calcium 8.1 L Corrected Calcium 8.7 Phosphorus 3.5 Magnesium 1.8 Total Bilirubin 0.9 AST 92 H ALT 47 Alkaline Phosphatase 287 H Total Protein 5.6 L Albumin 3.2 L Globulin 2.4 Albumin/Globulin Ratio 1.3 TSH 2.13 ABG Interpretation ABG results: 12/07/24 08:11 ABG pH 7.46 H ABG pCO2 36 ABG pO2 58 L* ABG HCO3 26 ABG O2 Saturation 92 ABG Base Excess 2 Quality Measures Quality Measures none (holding heparin for low platelets) Assessment & Plan Assessment Current Active Medications: Generic Name Dose Route Start Last Admin Trade Name Freq PRN Reason Stop Dose Admin Acetaminophen 500 mg 12/05/24 09:03 12/08/24 00:57 Acetaminophen 500 Mg Tablet PO 01/04/25 09:02 500 mg Q6HR PRN Administration FEVER > 101 Benzonatate 100 mg 11/30/24 10:46 12/08/24 00:58 Benzonatate 100 Mg Capsule PO 12/30/24 10:45 100 mg Q8HR PRN Administration COUGH Protocol Calcium Carbonate 600 mg 11/25/24 20:00 12/08/24 09:32 Calcium Carbonate 600 Mg Tablet PO 12/25/24 19:59 600 mg QDAY ARI Administration Furosemide 80 mg 12/07/24 18:00 12/08/24 06:37 Furosemide Inj 10 Mg/Ml 4ml Vial IVP 01/06/25 17:59 80 mg BIDD ARI Administration Micafungin Sodium 100 mg/ 100 mls @ 100 mls/hr 11/28/24 09:00 12/08/24 09:32 Sodium Chloride IV 12/13/24 08:59 100 mls/hr QDAY ARI Administration Levofloxacin/Dextrose 750 mg in 150 mls @ 100 mls/hr 12/04/24 10:45 12/06/24 10:21 Levaquin Ivpb IV 12/11/24 10:44 100 mls/hr Q48H ARI Administration Protocol Magnesium Sulfate 2 gm in 50 mls @ 25 mls/hr 12/08/24 08:55 12/08/24 09:31 Magnesium Sulfate Ivpb IV 12/08/24 10:54 25 mls/hr X1 ONE Administration Potassium Chloride 10 meq in 100 mls @ 100 mls/hr 12/08/24 08:55 12/08/24 09:32 Kcl Ivpb IV 12/08/24 10:54 100 mls/hr Q1H ARI Administration Megestrol Acetate 400 mg 12/06/24 11:15 12/08/24 09:32 Megestrol Acet Susp 400 Mg/10 Ml Udc PO 01/05/25 11:14 400 mg QDAY ARI Administration Midodrine 10 mg 12/05/24 09:15 12/08/24 06:36 Midodrine 5 Mg Tablet PO 01/04/25 09:14 10 mg TID ARI Administration Mirtazapine 7.5 mg 12/05/24 21:00 12/07/24 21:57 Mirtazapine 15 Mg Tablet PO 01/04/25 20:59 7.5 mg HS ARI Administration Pharmacy Consult 1 each 12/02/24 16:17 Pharmacy Renal Dose Adjustment 1 Ea XX 01/01/25 16:16 PRN PRN CONSULT Polyethylene Glycol 17 gm 11/26/24 07:16 Polyethylene Glycol 17 Gm Packet PO 12/25/24 18:29 QDAY PRN CONSTIPATION Protocol Vitamin B Complex/Vit C/Folic Acid 1 tab 12/06/24 09:00 12/08/24 09:32 Vitamin B Complex Tablet PO 01/05/25 08:59 1 tab QDAY ARI Administration Plan Mr. 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 Rutledge and Dr. Ugarte at [facility] presents to the emergency room with worsening fatigue and a feeling of heaviness in his chest admitted to ICU for neutropenic fever. Fevers are slightly improved today compared to yesterday clinically patient appears in less distress less shivering. Cr remains elevated, well above baseline. RAMSES Baseline Cr 1.0, now 2.8 Ddx: Consider pre vs intra vs post renal etiologies Dx - Daily CMP - renal US with small kidneys and cortical thinning, no hydronephrosis, no stones - UA 1+ protein, 3+ blood, ?amorphous crystals - Hematuria resolved Zhao bag with clear yellow urine - Nonobstructive renal calculi noted on CTAP, mild hydronephrosis noted - 12/07: BP 107/67 Cr:2.6 BUN:59, eGFR:27, Urine output:4175mL Tx - Avoid nephrotoxic medications - strict i and o, patient has good urine output -Patient makes optimal amount of urine and creatine levels stable. Continue to monitor for renal improvement. Continue supportive care. Neutropenic Fever of unkown origin-improving CAP Stage IV metastatic Small cell lung cancer Transaminitis hypoalbuminemia pancytopenia normocytic anemia hematuria likely 2/2-resolved thrombocytopenia (PLT <5) - management per primary team Assessment and plan discussed with my attending physician Dr. Keith Small ([id number])- Internal medicine resident Attending Provider Attestation/Addendum Patient seen and examined with resident physician Dr. Small. Note reviewed, agree with findings and recommendations. Creatinine tad better. Good urine output. Will monitor closely. Encourage p.o. fluid intake. Still sick looking. Patient has metastatic cancer Thank you Dr. Ro for allowing me to participate in the care of Mr. Valdovinos
[2024-12-08 09:43] LABS: Slide Review Platelets confirmed
[2024-12-08] MEDS: LEVOFLOXACIN/D5W 750MG IVPB 750 MG/150 ML BAG 100 MG IV (11:05)
--- NOTE | 2024-12-08 11:31 | PC.SS ---
SS received a call from PT recommending home health services and a weelchair and bsc. SS will confirm with family.
--- NOTE | 2024-12-08 13:41 | PD.ADDPROG ---
Addendum Progress Note Addendum Date of report being addended: 12/08/24 Narrative: Attending attestation I reviewed labs, imaging, EKG, home medications and prior available records. Face to face evaluation was performed by me. I have personally examined the patient and discussed assessment and plan with the IM team. I reviewed the resident note and agree with the plan with exceptions as below. Acute hypoxic respiratory failure, in the setting of pulmonary edema and anasarca Neutropenic fever Pancytopenia, in the setting of chemotherapy Septic shock: Possibly due to left-sided pneumonia versus Port-A-Cath infection versus colitis Acute kidney injury, possibly intrinsic in setting of chemotherapy versus shock Acute liver injury, likely in setting of hypotension and congestive hepatopathy Acute encephalopathy, likely hypoactive delirium in the setting of acute illness Goals of care discussion/counseling Started IV Lasix. Increased Lasix to 80 mg IV twice daily Patient experienced respiratory distress. He had worsening oxygen requirements. Ordered chest x-ray that showed pulmonary edema. Ordered IV Lasix Ordered repeat CT scan with oral contrast of the abdomen/pelvis that showed severe colitis, likely source of sepsis versus atypical pneumonia Ordered DuoNeb for wheezing Changed antibiotics to levofloxacin and micafungin Repeat blood cultures are negative to date Ordered stool cultures, C. difficile, ova and parasitology Removed port a cath by general surgery Trend CBC: He has significant pancytopenia. Transfuse PRBC/platelet products as needed and continue to monitor Finished Neupogen as absolute neutrophil count is now 1.5 Consulted ID who agreed on switching Zosyn to levofloxacin Consulted nephrology who is following the case Consulted GI who ordered further workup to rule out hepatitis and to investigate transaminitis Monitor kidney function:Avoid nephrotoxins Discussed goals of care: Will continue full treatment for now. He is full code. Family is considering DNR but still thinking about
--- NOTE | 2024-12-08 16:25 | PC.PT ---
Patient is safe to stand pivot transfer to a bedside commode and the chair at bedside with 1 staff or 1 family member if the patient's is present. RN made aware.
--- NOTE | 2024-12-08 17:25 | ESPR_ITS ---
<Statement entered by Blaise Ponce MD - 12/08/24 20:07> No acute overnight events. Seen and examined at bedside and patient was arousable to loud voice and position changes. Continues to saturate in low to mid 90s on 4 L NC but appears to be responding well to aggressive diuresis with lasix 80 mg BID as creatinine is improving. Will continue with levofloxacin for pneumonia and cultures (blood, urine) negative to date. Platelets again < 10 and 1 unit of platelets ordered, will follow-up on AM CBC. ----- Note reviewed and agree with care plan as documented. Please refer to the note below for further details. Plan discussed with attending physician Dr. Jayjay Ponce MD PGY-2 Internal Medicine Documentation for date of: 12/08/24 Subjective Subjective Interval history: Patient was seen and examined at bedside.? He is lethargic, but did awaken to loud calls of provider in the room. Patient has been consuming home-cooked food brought in by . Ate 75% of lunch and no breakfast. According to morning nurse, patient had been able to mobilize himself to the bedside commode 3 times before, not observed by the nurse. Patient oral intake still very limited, risk-benefit of TPN will be discussed with the family if the patient fluid status and overload improves. Discussed goals of care with the patient. Will continue with full treatment for now as patient remains full code. Exam Vital Signs Temp Pulse Resp BP Pulse Ox O2 Del Method O2 Flow Rate 98.8 F 120 H 18 120/78 93 L Nasal Cannula 4 12/08/24 15:57 12/08/24 16:00 12/08/24 15:57 12/08/24 15:57 12/08/24 15:57 12/08/24 15:57 12/08/24 15:57 Narrative Exam GEN: AOx3, looks ill, pale, dry mucous membrane. HEENT: NC/AC, PERRLA, oral mucosa dry, neck supple CVS: RRR, S1-S2 present, tachypneic no murmurs appreciated RESP: Diffuse bilateral crepitations. GI: soft,non distended, non tender, NBS MSK: able to move all 4 limbs, positive lower extremity edema SKIN: warm and dry. No bruising, erythema, or ulcers noted on close examination of the back. ACID TESTER: CN II-XII and Sensation grossly intact. Objective Labs 12/09/24 05:29 12/09/24 05:29 Labs: Laboratory Results - last 24 hr 12/06/24 12/08/24 12:00 05:47 WBC 2.0 L RBC 2.57 L Hgb 7.2 L Hct 21.9 L* MCV 85 MCH 28.0 MCHC 32.9 RDW Std Deviation 73.1 H Plt Count 9 L* D Neut % (Auto) 67 Lymph % (Auto) 4 L [place] % (Auto) 11 Eos % (Auto) 0 Baso % (Auto) 1 Neut # (Auto) 1.3 L Lymph # (Auto) 0.1 L [place] # (Auto) 0.2 Eos # (Auto) 0.0 Baso # (Auto) 0.0 Immature Gran # (Auto) 0.34 H Absolute Nucleated RBC 0.00 Immature Gran % 17 H Nucleated RBC % 0 Sodium 142 Potassium 3.4 Chloride 102 Carbon Dioxide 28.7 Anion Gap 11 BUN 59 H Creatinine 2.6 H Estim Creat Clear Calc 28.4 L eGFR 27 L BUN/Creatinine Ratio 23 H Glucose 116 H Calculated Osmolality 300 H Calcium 8.1 L Corrected Calcium 8.7 Phosphorus 3.5 Magnesium 1.8 Total Bilirubin 0.9 AST 92 H ALT 47 Alkaline Phosphatase 287 H Total Protein 5.6 L Albumin 3.2 L Globulin 2.4 Albumin/Globulin Ratio 1.3 TSH 2.13 Misc Test Result Platelets confirmed Blood Bank Comment PLATP Ready ABG Interpretation ABG results: 12/07/24 08:11 ABG pH 7.46 H ABG pCO2 36 ABG pO2 58 L* ABG HCO3 26 ABG O2 Saturation 92 ABG Base Excess 2 Quality Measures Quality Measures none (holding heparin for low platelets) Assessment & Plan Assessment Current Active Medications: Generic Name Dose Route Start Last Admin Trade Name Freq PRN Reason Stop Dose Admin Acetaminophen 500 mg 12/05/24 09:03 12/08/24 00:57 Acetaminophen 500 Mg Tablet PO 01/04/25 09:02 500 mg Q6HR PRN Administration FEVER > 101 Benzonatate 100 mg 11/30/24 10:46 12/08/24 00:58 Benzonatate 100 Mg Capsule PO 12/30/24 10:45 100 mg Q8HR PRN Administration COUGH Protocol Calcium Carbonate 600 mg 11/25/24 20:00 12/08/24 09:32 Calcium Carbonate 600 Mg Tablet PO 12/25/24 19:59 600 mg QDAY ARI Administration Furosemide 80 mg 12/07/24 18:00 12/08/24 06:37 Furosemide Inj 10 Mg/Ml 4ml Vial IVP 01/06/25 17:59 80 mg BIDD ARI Administration Micafungin Sodium 100 mg/ 100 mls @ 100 mls/hr 11/28/24 09:00 12/08/24 09:32 Sodium Chloride IV 12/13/24 08:59 100 mls/hr QDAY ARI Administration Levofloxacin/Dextrose 750 mg in 150 mls @ 100 mls/hr 12/04/24 10:45 12/08/24 11:05 Levaquin Ivpb IV 12/11/24 10:44 100 mls/hr Q48H ARI Administration Protocol Megestrol Acetate 400 mg 12/06/24 11:15 12/08/24 09:32 Megestrol Acet Susp 400 Mg/10 Ml Udc PO 01/05/25 11:14 400 mg QDAY ARI Administration Midodrine 10 mg 12/05/24 09:15 12/08/24 14:10 Midodrine 5 Mg Tablet PO 01/04/25 09:14 Not Given TID ARI Mirtazapine 7.5 mg 12/05/24 21:00 12/07/24 21:57 Mirtazapine 15 Mg Tablet PO 01/04/25 20:59 7.5 mg HS ARI Administration Pharmacy Consult 1 each 12/02/24 16:17 Pharmacy Renal Dose Adjustment 1 Ea XX 01/01/25 16:16 PRN PRN CONSULT Polyethylene Glycol 17 gm 11/26/24 07:16 Polyethylene Glycol 17 Gm Packet PO 12/25/24 18:29 QDAY PRN CONSTIPATION Protocol Vitamin B Complex/Vit C/Folic Acid 1 tab 12/06/24 09:00 12/08/24 09:32 Vitamin B Complex Tablet PO 01/05/25 08:59 1 tab QDAY ARI Administration Plan Elle Garza is a 64-year-old male with a history of 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 Admitted to ICU for management of septic shock; downgraded and found to have neutropenic fever, pancytopenia, s/p port-a-cath removal for potential source of infection; s/p central line. #Sepsis most likely secondary to pneumonia versus UTI versus gastroenteritis #Pancytopenia #Bone marrow failure #Neutropenic fever most likely secondary to pneumonia #Acute hypoxic respiratory failure #Community-acquired pneumonia Most likely chemotherapy-induced myelosuppression vs bacterial pneumonia vs fungal vs atypical (immunocompromised) Port-a-Cath removed; given unit of platelet on 12/06 and 12/08 Blood/Urine Cx's Negative in multiple occasions. Ordered stool cx, wbc, ova/parasites, C. diff PCR that are pending ? Dr. Rutledge recommended continuing filgrastim qd until ANC > 1500 consistently; ANC 1680 and filgrastim DC'd on 12/07 ? 06/08 SIRS criteria: HR 120 (>90), RR 23 (>20), WBC 2 (<4) + organ dysfunction with Cr 2.8 >2, Plt 16 <100, and elevated LFT + PNA as thesource of infection = severe sepsis ? ABG showed pO2 58 (12/07) ? CXR (12/07): b/l perihilar Lt basilar pneumonia and moderate vascular congestion Plan: - Levaquin 750 mg IV q48hr, stopped zosyn, azithromycin, vancomycin - Micafungin 100 mg IV daily - Discontinued Filgrastim daily as ANC 1680 >1500 - Transfuse pRBC if Hgb <7 g/dL; transfuse platelets if less than 5-10K or if less at 20,000 with bleeding - Midodrine 10 mg PO TID - Monitor for new fever or infectious symptoms - Tylenol PRN (MAX 4 g per 24 hours), cooling measures PRN #Stage IV small cell lung cancer (liver, bone, adrenal glands) #Failure to thrive #Malnutrition Diagnosed 2022 and started on chemotherapy and radiation therapy. Last dose November 22 2024. Based on last oncology note patient had initial good response to chemotherapy, progression on carboplatin and irinotecan (2022), and current third-line therapy with Lubridactin. On November 22 2024, was considering Empower trial for immunotherapy, and possible transfer to [place] for Terlatumab treatment CT A/P 11/28/2023 showed numerous hepatic, left adrenal lesions, widespread bone mets Port-a-cath removed 11/30/2024 Total Protein 5.2 (12/07) Patient eats food brought in by family Plan: -Referral to dietitian -Megesterol acetate PO 400mg QD -Renavite daily -Will consider TPN after we diurese the patient to help improve his vascular pulmonary congestion -Consulted Oncology Dr. Forrester, appreciate recs -Dr. Rutledge following him outpatient & providing recommendations (above) (radiation oncology, Dr. Ugarte) #Fluid overload #Congestive nephropathy #Acute kidney injury #Oliguria, improving #Pulmonary Edema Most likely acute tubular necrosis secondary to sepsis and hypotension. Baseline Cr ~1.3; Cr stable around 2.4-2.6 12/07: Cr: 2.8 BUN: 58 eGFR 24, urine output: 3750mL 12/08: Cr 2.6, BUN 59, eGFR 27 Plan: -Increased Lasix to 80 mg IVP twice daily -Continue with aggressive diuresis until creatinine trends up again, at which point consider a diuretic holiday and resuming diuresis every other day. - Strict I/O - Continue to monitor renal improvement - Ordered albumin 25mg x1 - Fluid intake restricted to 1200mL - Nephrology consulted, appreciate recs - Avoid nephrotoxic medications - Renal dose adjustments for all medications as indicated #Transaminitis, improving Most likely ischemic hepatitis secondary to prior septic shock. [id number] diagnosis is acute viral hepatitis, which has been ruled out by negative panel. Less likely is hepatic infiltration by metastases; CT shows lesions but no acute findings. Plan: - GI specialist Dr. Galan was consulted, appreciate recommendations - Follow-up in the acute hepatitis panel including viral marker, serial plasmin, autoimmune antibodies - Pending TERESSA and anti-mitochondrial Ab - Monitor for jaundice or worsening liver function. - Supportive care; avoid hepatotoxic medications. Will decrease the dose of acetaminophen to 500 mg every 6 hours with max dose of 2 g/day. #Hypocalcemia (repleted) Most likely secondary to acute illness and/or chemotherapy vs less likely tumor lysis syndrome. - Monitor calcium and electrolytes daily. - Replete calcium as needed. #New onset diabetes mellitus HbA1c 6.5%, no previous recorded A1c available. - Dietary and lifestyle modifications. - Target glucose 140-180 mg/dL. - Outpatient follow-up with PCP for further management. Hospital Management: Disposition: Tele, pending hospice placement Diet: cardiac with 1.2 L fluid restriction, ensure IV lines: PIV, right jugular vein central line GI Prophylaxis: Stopped Protonix 40mg qday Bowel Prophylaxis: Miralax DVT Prophylaxis: HOLD Heparin CODE STATUS: Full Code - This case was discussed with my attending physician, Dr. Ro, and senior resident Dr Landa. Toni Vasquez, DO PGY I Attending Provider Attestation/Addendum I reviewed labs, imaging, EKG, home medications and prior available records. Face to face evaluation was performed by me. I have personally examined the patient and discussed assessment and plan with the IM team. I reviewed the resident note and agree with the plan with exceptions as below. Acute hypoxic respiratory failure, in the setting of pulmonary edema and anasarca Neutropenic fever Pancytopenia, in the setting of chemotherapy Septic shock: Possibly due to left-sided pneumonia versus Port-A-Cath infection versus colitis Acute kidney injury, possibly intrinsic in setting of chemotherapy versus shock Acute liver injury, likely in setting of hypotension and congestive hepatopathy Acute encephalopathy, likely hypoactive delirium in the setting of acute illness Goals of care discussion/counseling Started IV Lasix. Increased Lasix to 80 mg IV twice daily Patient experienced respiratory distress. He had worsening oxygen requirements. Ordered chest x-ray that showed pulmonary edema. Ordered IV Lasix Ordered repeat CT scan with oral contrast of the abdomen/pelvis that showed severe colitis, likely source of sepsis versus atypical pneumonia Ordered DuoNeb for wheezing Changed antibiotics to levofloxacin and micafungin Repeat blood cultures are negative to date Ordered stool cultures, C. difficile, ova and parasitology Removed port a cath by general surgery Trend CBC: He has significant pancytopenia. Transfuse PRBC/platelet products as needed and continue to monitor Finished Neupogen as absolute neutrophil count is now 1.5 Consulted ID who agreed on switching Zosyn to levofloxacin Consulted nephrology who is following the case Consulted GI who ordered further workup to rule out hepatitis and to investigate transaminitis Monitor kidney function:Avoid nephrotoxins Discussed goals of care: Will continue full treatment for now. He is full code. Family is considering DNR but still thinking about
--- NOTE | 2024-12-08 20:34 | PD.IMPROG ---
Documentation for date of: 12/08/24 Subjective Subjective Interval history: Patient evaluated hemoglobin hematocrit 7.2 and 21.9 and a WBC count of 2.0 Exam Vital Signs Temp Pulse Resp BP Pulse Ox O2 Del Method O2 Flow Rate 98.8 F 118 H 18 123/83 93 L Nasal Cannula 4 12/08/24 15:57 12/08/24 18:10 12/08/24 15:57 12/08/24 18:10 12/08/24 15:57 12/08/24 15:57 12/08/24 15:57 Objective Labs 12/08/24 05:47 12/08/24 05:47 Labs: Laboratory Results - last 24 hr 12/06/24 12/08/24 12:00 05:47 WBC 2.0 L RBC 2.57 L Hgb 7.2 L Hct 21.9 L* MCV 85 MCH 28.0 MCHC 32.9 RDW Std Deviation 73.1 H Plt Count 9 L* D Neut % (Auto) 67 Lymph % (Auto) 4 L [place] % (Auto) 11 Eos % (Auto) 0 Baso % (Auto) 1 Neut # (Auto) 1.3 L Lymph # (Auto) 0.1 L [place] # (Auto) 0.2 Eos # (Auto) 0.0 Baso # (Auto) 0.0 Immature Gran # (Auto) 0.34 H Absolute Nucleated RBC 0.00 Immature Gran % 17 H Nucleated RBC % 0 Sodium 142 Potassium 3.4 Chloride 102 Carbon Dioxide 28.7 Anion Gap 11 BUN 59 H Creatinine 2.6 H Estim Creat Clear Calc 28.4 L eGFR 27 L BUN/Creatinine Ratio 23 H Glucose 116 H Calculated Osmolality 300 H Calcium 8.1 L Corrected Calcium 8.7 Phosphorus 3.5 Magnesium 1.8 Total Bilirubin 0.9 AST 92 H ALT 47 Alkaline Phosphatase 287 H Total Protein 5.6 L Albumin 3.2 L Globulin 2.4 Albumin/Globulin Ratio 1.3 TSH 2.13 Misc Test Result Platelets confirmed Blood Bank Comment PLATP Ready Impressions Impression: Pancytopenia due to chemotherapy no signs of any active bleeding abnormal LFTs improving continue current management ABG Interpretation ABG results: 12/07/24 08:11 ABG pH 7.46 H ABG pCO2 36 ABG pO2 58 L* ABG HCO3 26 ABG O2 Saturation 92 ABG Base Excess 2 Assessment & Plan A&P Narrative A#1. Small cell CA of the lung initially limited now extensive prior chemoradiation now receiving additional chemo with Dr. Rutledge at the cancer treatment center A#2. Admitted with pancytopenia neutropenic fever receiving antibiotics micafungin filgrastim platelet transfusions. A#3. Abnormal LFTs Dr. Galan has seen patient and workup for chronic active hepatitis in progress. Time Spent With Patient Time: Total time spent is greater than 50% in coordination of care (as documented) at patient's floor/unit and/or counseling patient:
[2024-12-08] MEDS: MIRTAZAPINE 15 MG TABLET 7.5 MG PO (21:26)
[2024-12-09] VITALS (15 sets, daily range): BP systolic 99–131; BP diastolic 60–96; PULSE 95–130; RESP 19–26; TEMP 36.1–37.4; O2SAT 92–99; BMI 31.6
[2024-12-09] MEDS: FUROSEMIDE INJ 10 MG/ML 4ML VIAL 80 MG IVP ×2 (05:27→17:34)
[2024-12-09 05:55] LABS: Basophils # (Auto) 0.0 Thou/mm3 (0.0-0.2); Basophils % (Auto) 0 % (0-2.5); Eosinophils # (Auto) 0.0 Thou/mm3 (0.0-0.5); Eosinophils % (Auto) 0 % (0-10); Hematocrit 23.9 % (41.0-53.0); Immature Granulocytes Auto 0.30 Thou/mm3 (0.00-0.00); Lymphocytes # (Auto) 0.1 Thou/mm3 (1.0-4.8); Lymphocytes % (Auto) 5 % (10-50); Mean Corpuscular HGB Conc 33.5 g/dl (31.0-37.0); Mean Corpuscular Hemoglobin 28.4 pg (25.0-35.0); Mean Corpuscular Volume 85 fL (80-100); Monocytes # (Auto) 0.4 Thou/mm3 (0.0-0.8); Monocytes % (Auto) 15 % (0-12); Neutrophils # (Auto) 1.8 Thou/mm3 (1.8-7.7); Neutrophils % (Auto) 68 % (37-80); Nucleated Red Blood Cell # 0.02 Thou/mm3 (0.00-0.00); Nucleated Red Blood Cell % 1 /100 WBC (0); RDW Standard Deviation 71.7 fL (35.1-43.9); Red Blood Count 2.82 Miln/mm3 (4.50-5.90); White Blood Count 2.7 Thou/mm3 (3.8-10.6)
[2024-12-09 05:59] LABS: Hemoglobin 8.0 g/dL (13.5-16.0); Platelet Count 34 Thou/mm3 (140-440)
[2024-12-09 06:22] LABS: Alanine Aminotransferase 37 U/L (10-49); Albumin, Serum 3.4 gm/dL (3.4-4.8); Albumin/Globulin Ratio 1.6 (1.2-2.2); Alkaline Phosphatase 253 U/L (46-116); Anion Gap 11 (7-16); Aspartate Amino Transferase 76 U/L (0-34); BUN/Creatinine Ratio 23 Ratio (12-20); Bilirubin,Total 0.9 mg/dL (0.3-1.2); Blood Urea Nitrogen 55 mg/dL (9-23); Calcium 8.9 mg/dL (8.3-10.6); Calcium (Corrected) 9.4 mg/dL (8.5-10.1); Carbon Dioxide 32.3 mMol/L (20.0-31.0); Chloride 101 mMol/L (98-107); Creatinine (Component) 2.4 mg/dL (0.6-1.3); Estimated Creatinine Clearance 30.8 mL/min (>60); Globulin 2.1 gm/dL (2.3-3.5); Glucose 116 mg/dL (74-106); Magnesium 1.8 mg/dL (1.6-2.6); Osmolality,Calculated 302 (275-295); Phosphorous 3.6 mg/dL (2.4-5.1); Potassium 3.2 mMol/L (3.4-5.1); Sodium 144 mMol/L (136-145); Total Protein 5.5 gm/dL (5.7-8.2); eGFR 29 See Note
[2024-12-09 06:26] LABS: Slide Review Platelets confirmed
[2024-12-09] MEDS: CALCIUM CARBONATE 600 MG TABLET PO (07:59)
[2024-12-09] MEDS: Magnesium Sulfate 2 GM Ivpb 2 GM/50 ML BAG IV ×2 (07:59→09:42)
[2024-12-09] MEDS: VITAMIN B COMPLEX TABLET 1 TAB PO (07:59)
[2024-12-09] MEDS: POTASSIUM CHL 10 mEq IVPB 10 MEQ/100 ML BAG 100 MEQ IV ×4 (07:59→11:01)
[2024-12-09] MEDS: MEGESTROL ACET SUSP 400 MG/10 ML UDC PO (07:59)
[2024-12-09] MEDS: MICAFUNGIN SODIUM INJ 100 MG in SODIUM CHLORIDE 0.9% 100 ML IV (08:00)
--- NOTE | 2024-12-09 09:37 | ESPR_ITS ---
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 Ruteldge and Dr. Ugarte at [facility] presents to the emergency room with worsening fatigue and a feeling of heaviness in his chest for the past 4 days. His symptoms began after a chemotherapy session on November 22. He is accompanied by his brother, who is providing translation. The patient reports feeling more tired than usual since his last chemotherapy session. He has also had a cough and a subjective fever. He denies shortness of breath. He describes a feeling of heaviness in his chest. His brother notes that the patient's white blood cell count was low on both Friday and Friday before the chemotherapy was administered. The patient's brother reports that the patient was constipated after chemotherapy but has not had diarrhea. There are no sick contacts at home. Patient is not complaining of any chest pain or shortness of breath. 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 12/02/2024: patient seen and examined at bedside, he is shivering and reports feeling very cold. he continued to have fevers overnight to 104, he remains on reverse contact precautions. Cr 2.4 from 2.6, BUN 43 GFR 29. remains tachycardic to 120s and BP is normotensive 12/03/2024: Patient seen and examined at bedside patient is seen with cooling packs underneath and cold towel on forehead he was shivering and fan is on hand he remains febrile to 104. Hematuria noted from Zhao catheter his platelets are less than 5, primary team to give platelets. Creatinine 2.3 BUN 46 he remains tachycardic. 12/04/2024: Patient seen and examined at bedside patient fevers are notably better compared to yesterday Tmax of 103 however patient is currently afebrile, patient remains tachycardic he received 1 unit platelets yesterday platelets bumped to 17 today hematuria improved today in Zhao bag yellow clear, creatinine remains at 2.4, overall he appears clinically improved today compared to yesterday. CTAP with renal calculi noted in the right renal pelvis nonobstructive. continue IV fluids with half-normal saline. 12/07/2024: Labs reviewed and patient examined at the bedside. Patient currently afebrile. Cr 2.8 and Urine Output of 3750mL. Continue to monitor for renal improvement. BP: 129/85 12/08/2024: Patient afebrile, but remaining tachycardic. Patient continues with dry cough. Patient's urine looks clear yellow. BP 107/67 Cr:2.6 BUN:59, eGFR:27, Urine output:4175mL. Patient makes optimal amount of urine and creatine levels stable. Continue to monitor for renal improvement. Continue supportive care. 12/08/2024: Labs reviewed and patient examined at the bedside. Patient is afebrile. Patient complains of generalized weakness. Continues intermittent dry cough. BP 131/96 Cr:2.4 BUN:55, eGFR:29, Urine output:3.4L. Patient makes optimal amount of urine and creatine levels stable. Continue to monitor for renal improvement. Continue supportive care. Patient currently looks euvolemic. Recommend to lower or discontinue Lasix. Exam Vital Signs Temp Pulse Resp BP Pulse Ox O2 Del Method O2 Flow Rate 97.9 F 121 H 24 H 120/85 H 95 Nasal Cannula 5 12/09/24 08:00 12/09/24 08:29 12/09/24 08:00 12/09/24 08:00 12/09/24 08:00 12/09/24 08:00 12/09/24 08:00 Narrative Exam GENERAL: Sick looking gentleman seen in reverse isolation. HEENT: Head AT/ NC. Mucous membranes dry. NECK: Supple, no lymphadenopathy, CARDIOVASCULAR: Sinus tachycardia. Normal S1/S2, + murmur. No pitting edema of bilateral LEs. s/p removal of chemo port on right upper chest no drainage no dehiscence no pus intact RESPIRATORY: CTAB. No wheezing, rhonchi, crackles. tachypnic. GASTROINTESTINAL: Abdomen less tense, however it remains tympanic, distended, non tender no palpable masses. Bowel sounds present : Zhao catheter noted with clear yellow urine MUSCULOSKELETAL:? No cyanosis or edema, no visible joint swelling. NEUROLOGICAL: Patient barely arousable. SKIN: No obvious rashes, no jaundice, normal turgor. Objective Labs 12/09/24 05:29 12/09/24 05:29 Labs: Laboratory Results - last 24 hr 12/06/24 12/08/24 12/09/24 12:00 05:47 05:29 WBC 2.7 L RBC 2.82 L Hgb 8.0 L Hct 23.9 L MCV 85 MCH 28.4 MCHC 33.5 RDW Std Deviation 71.7 H Plt Count 34 L D Neut % (Auto) 68 Lymph % (Auto) 5 L Quay % (Auto) 15 H Eos % (Auto) 0 Baso % (Auto) 0 Neut # (Auto) 1.8 Lymph # (Auto) 0.1 L [place] # (Auto) 0.4 Eos # (Auto) 0.0 Baso # (Auto) 0.0 Immature Gran # (Auto) 0.30 H Absolute Nucleated RBC 0.02 H Immature Gran % 11 H Nucleated RBC % 1 H Sodium 144 Potassium 3.2 L Chloride 101 Carbon Dioxide 32.3 H Anion Gap 11 BUN 55 H Creatinine 2.4 H Estim Creat Clear Calc 30.8 L eGFR 29 L BUN/Creatinine Ratio 23 H Glucose 116 H Calculated Osmolality 302 H Calcium 8.9 Corrected Calcium 9.4 Phosphorus 3.6 Magnesium 1.8 Total Bilirubin 0.9 AST 76 H ALT 37 Alkaline Phosphatase 253 H D Total Protein 5.5 L Albumin 3.4 Globulin 2.1 L Albumin/Globulin Ratio 1.6 Misc Test Result Platelets confirmed Platelets confirmed Blood Bank Comment PLATP Ready ABG Interpretation ABG results: 12/07/24 08:11 ABG pH 7.46 H ABG pCO2 36 ABG pO2 58 L* ABG HCO3 26 ABG O2 Saturation 92 ABG Base Excess 2 Quality Measures Quality Measures none (holding heparin for low platelets) Assessment & Plan Assessment Current Active Medications: Generic Name Dose Route Start Last Admin Trade Name Freq PRN Reason Stop Dose Admin Acetaminophen 650 mg 12/09/24 07:56 Acetaminophen 325 Mg Tablet PO 01/04/25 09:02 Q6HR PRN Fever > 99.9 Benzonatate 100 mg 11/30/24 10:46 12/08/24 00:58 Benzonatate 100 Mg Capsule PO 12/30/24 10:45 100 mg Q8HR PRN Administration COUGH Protocol Calcium Carbonate 600 mg 11/25/24 20:00 12/09/24 07:59 Calcium Carbonate 600 Mg Tablet PO 12/25/24 19:59 600 mg QDAY ARI Administration Furosemide 80 mg 12/07/24 18:00 12/09/24 05:27 Furosemide Inj 10 Mg/Ml 4ml Vial IVP 01/06/25 17:59 80 mg BIDD ARI Administration Micafungin Sodium 100 mg/ 100 mls @ 100 mls/hr 11/28/24 09:00 12/09/24 08:00 Sodium Chloride IV 12/13/24 08:59 100 mls/hr QDAY ARI Administration Levofloxacin/Dextrose 750 mg in 150 mls @ 100 mls/hr 12/04/24 10:45 12/08/24 11:05 Levaquin Ivpb IV 12/11/24 10:44 100 mls/hr Q48H ARI Administration Protocol Potassium Chloride 10 meq in 100 mls @ 100 mls/hr 12/09/24 07:07 12/09/24 09:11 Kcl Ivpb IV 12/09/24 11:06 100 mls/hr Q1H ARI Administration Doxycycline Hyclate 100 mg/ 100 mls @ 100 mls/hr 12/09/24 09:00 Sodium Chloride IV 12/16/24 08:59 BID ARI Magnesium Sulfate 2 gm in 50 mls @ 25 mls/hr 12/09/24 08:31 Magnesium Sulfate Ivpb IV 12/09/24 10:30 X1 ONE Albumin Human 25 gm in 100 mls @ 100 mls/hr 12/09/24 09:33 Albuminar-25 Ivpb IV 12/09/24 10:32 X1 ONE Lactobacillus Rhamnosus 1 cap 12/09/24 09:00 Lactobacillus Rhamnosus 1 Cap PO 01/08/25 08:59 BID ARI Megestrol Acetate 400 mg 12/06/24 11:15 12/09/24 07:59 Megestrol Acet Susp 400 Mg/10 Ml Udc PO 01/05/25 11:14 400 mg QDAY ARI Administration Midodrine 10 mg 12/05/24 09:15 12/09/24 05:30 Midodrine 5 Mg Tablet PO 01/04/25 09:14 Not Given TID ARI Mirtazapine 7.5 mg 12/05/24 21:00 12/08/24 21:26 Mirtazapine 15 Mg Tablet PO 01/04/25 20:59 7.5 mg HS ARI Administration Polyethylene Glycol 17 gm 11/26/24 07:16 Polyethylene Glycol 17 Gm Packet PO 12/25/24 18:29 QDAY PRN CONSTIPATION Protocol Vitamin B Complex/Vit C/Folic Acid 1 tab 12/06/24 09:00 12/09/24 07:59 Vitamin B Complex Tablet PO 01/05/25 08:59 1 tab QDAY ARI Administration Plan Mr. 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 Rutledge and Dr. Ugarte at [facility] presents to the emergency room with worsening fatigue and a feeling of heaviness in his chest admitted to ICU for neutropenic fever. Fevers are slightly improved today compared to yesterday clinically patient appears in less distress less shivering. Cr remains elevated, well above baseline. RAMSES Baseline Cr 1.0, now 2.8 Ddx: Consider pre vs intra vs post renal etiologies Dx - Daily CMP - renal US with small kidneys and cortical thinning, no hydronephrosis, no stones - UA 1+ protein, 3+ blood, ?amorphous crystals - Hematuria resolved Zhao bag with clear yellow urine - Nonobstructive renal calculi noted on CTAP, mild hydronephrosis noted - BP 131/96 Cr:2.4 BUN:55, eGFR:29, Urine output:3.4L. Tx - Avoid nephrotoxic medications - strict i and o, patient has good urine output - Patient makes optimal amount of urine and creatine levels stable. Continue to monitor for renal improvement. Continue supportive care. - Patient currently looks euvolemic. Recommend to lower or discontinue Lasix. Neutropenic Fever of unkown origin-improving CAP Stage IV metastatic Small cell lung cancer Transaminitis hypoalbuminemia pancytopenia normocytic anemia hematuria likely 2/2-resolved thrombocytopenia (PLT <5) - management per primary team Assessment and plan discussed with my attending physician Dr. Keith Small (PGY-1)- Internal medicine resident Attending Provider Attestation/Addendum Patient seen and examined with resident physician Dr. Small. Note reviewed, agree with findings and recommendations. RAMSES seems to be more prerenal azotemia. Patient still remains very sick looking and extremely fatigued. Today he seems to be more alert and awake. Encourage p.o. fluids. Zhao catheter with good urine output. Will monitor closely. Off IV fluids. Currently on Lasix which can be held as clinically he looks euvolemic. Spoke to primary team/Dr. Ro- Patient with a significant pancytopenia and is on reverse isolation. Platelet transfusion prn given
[2024-12-09] MEDS: DOXYCYCLINE INJ 100 MG in SODIUM CHLORIDE 0.9% (POP) 100 ML IV ×2 (09:43→20:39)
[2024-12-09] MEDS: LACTOBACILLUS RHAMNOSUS 1 CAP PO ×2 (11:01→20:39)
[2024-12-09] MEDS: ALBUMIN HUMAN 25% IVPB 25 GM/100 ML BTL IV (11:02)
--- NOTE | 2024-12-09 13:50 | PC.SS ---
Patient will need a manual wheelchair for home. The patient and her family are requesting a wheel chair. Patients diagnosis creates mobility limitations that significantly impairs ability to participate in the patient?s activities of daily living either in their entirety or in a reasonable timeframe in the home and the patient?s mobility limitations cannot be sufficiently resolved with an appropriately fitted cane or walker. Also, the use of a manual wheelchair will sufficiently improve patients ability to participate in the activities of daily living in the home and the patient is willing to use the wheelchair that is provided in the home. The patient has some one in the home that is available, willing and able to provide assistance with the wheelchair.
[2024-12-09 14:04] LABS: Stool for WBCs 1+ (Negative)
--- NOTE | 2024-12-09 15:11 | PC.CC ---
1515: received update from Tara BLUNT that pt will not need HH services on discharge. 1330: spoke to Tara BLUNT to inform her that the PCP noted for this patient is a [facility]enter [facility] in [place]. I can not move forward with HH without a PCP. Tara stated she will f/u with team about the [facility].
[2024-12-09 15:21] LABS: Clostridium Difficile PCR Negative (Negative)
--- NOTE | 2024-12-09 15:34 | ESPR_ITS ---
<Statement entered by Jael Downing MD - 12/16/24 07:12> I reviewed above note and agree with findings and plans. I have also personally examined the patient with medicine team and went over assessment and plan with medical team including consultants intern and resident physician. Documentation for date of: 12/09/24 Subjective Subjective Interval history: Patient was seen and examined at bedside this AM. Mentation is slightly improved, he is more alert and following commands now. Patient spiked fever 101 overnight. Per family at bedside, patient is tolerating diet and eats about 40% of his home made Mediterranean meals. He is appears euvolemic now and has had adequate urine output on Laix 80mg BID. Renal function continues to improve. Nephrology also evaluated the patient, will continue to diurese patient with albumin PRN. Central line likely the source of fevers, will DC and get blood cultures. PICC line requested to continue antibiotics and IV Tx. Patient family to arrive from [place] in next 10 days. Family would like to hold off on any changes to code status at this time. Exam Vital Signs Temp Pulse Resp BP Pulse Ox O2 Del Method O2 Flow Rate 97.0 F 113 H 21 H 116/72 92 L Nasal Cannula 5 12/09/24 12:00 12/09/24 14:11 12/09/24 12:00 12/09/24 14:11 12/09/24 12:00 12/09/24 12:00 12/09/24 12:00 Narrative Exam Constitutional Alert, oriented x1. On 3L via NC, sats 94-96% HEENT Vision grossly intact. Patent nares. Trachea midline. RT IJ catheter in place. Respiratory Chest normal on inspection, diffuse soft crackles on auscultation. Cardiovascular S1 and S2 audible, RRR. No murmurs or carotid bruit. No gross JVD. Abdominal Soft and BS + ; non tender to palpation in all quadrants. Genitourinary No bladder tenderness, no flank pain. Zhao in place, good UO. Musculoskeletal Extremities tone within normal limits. No LE edema. Neurological CN II - XII grossly intact. Extremity motor and sensation grossly intact. Skin Warm, dry and intact. Senile purpura. Psychiatric Patient has a good affect, is somewhat cooperative. Objective Labs 12/09/24 05:29 12/09/24 05:29 Labs: Laboratory Results - last 24 hr 12/09/24 12/09/24 05:29 11:14 WBC 2.7 L RBC 2.82 L Hgb 8.0 L Hct 23.9 L MCV 85 MCH 28.4 MCHC 33.5 RDW Std Deviation 71.7 H Plt Count 34 L D Neut % (Auto) 68 Lymph % (Auto) 5 L [place] % (Auto) 15 H Eos % (Auto) 0 Baso % (Auto) 0 Neut # (Auto) 1.8 Lymph # (Auto) 0.1 L [place] # (Auto) 0.4 Eos # (Auto) 0.0 Baso # (Auto) 0.0 Immature Gran # (Auto) 0.30 H Absolute Nucleated RBC 0.02 H Immature Gran % 11 H Nucleated RBC % 1 H Sodium 144 Potassium 3.2 L Chloride 101 Carbon Dioxide 32.3 H Anion Gap 11 BUN 55 H Creatinine 2.4 H Estim Creat Clear Calc 30.8 L eGFR 29 L BUN/Creatinine Ratio 23 H Glucose 116 H Calculated Osmolality 302 H Calcium 8.9 Corrected Calcium 9.4 Phosphorus 3.6 Magnesium 1.8 Total Bilirubin 0.9 AST 76 H ALT 37 Alkaline Phosphatase 253 H D Total Protein 5.5 L Albumin 3.4 Globulin 2.1 L Albumin/Globulin Ratio 1.6 Stool for White Cells 1+ A Stl C. diff Tox B Gene Negative Misc Test Result Platelets confirmed ABG Interpretation ABG results: 12/07/24 08:11 ABG pH 7.46 H ABG pCO2 36 ABG pO2 58 L* ABG HCO3 26 ABG O2 Saturation 92 ABG Base Excess 2 Quality Measures Quality Measures none (holding heparin for low platelets) Assessment & Plan Assessment Current Active Medications: Generic Name Dose Route Start Last Admin Trade Name Trice PRN Reason Stop Dose Admin Acetaminophen 650 mg 12/09/24 07:56 Acetaminophen 325 Mg Tablet PO 01/04/25 09:02 Q6HR PRN Fever > 99.9 Benzonatate 100 mg 11/30/24 10:46 12/08/24 00:58 Benzonatate 100 Mg Capsule PO 12/30/24 10:45 100 mg Q8HR PRN Administration COUGH Protocol Calcium Carbonate 600 mg 11/25/24 20:00 12/09/24 07:59 Calcium Carbonate 600 Mg Tablet PO 12/25/24 19:59 600 mg QDAY ARI Administration Furosemide 80 mg 12/07/24 18:00 12/09/24 05:27 Furosemide Inj 10 Mg/Ml 4ml Vial IVP 01/06/25 17:59 80 mg BIDD ARI Administration Micafungin Sodium 100 mg/ 100 mls @ 100 mls/hr 11/28/24 09:00 12/09/24 08:00 Sodium Chloride IV 12/13/24 08:59 100 mls/hr QDAY ARI Administration Levofloxacin/Dextrose 750 mg in 150 mls @ 100 mls/hr 12/04/24 10:45 12/08/24 11:05 Levaquin Ivpb IV 12/11/24 10:44 100 mls/hr Q48H ARI Administration Protocol Doxycycline Hyclate 100 mg/ 100 mls @ 100 mls/hr 12/09/24 09:00 12/09/24 09:43 Sodium Chloride IV 12/16/24 08:59 100 mls/hr BID ARI Administration Lactobacillus Rhamnosus 1 cap 12/09/24 09:00 12/09/24 11:01 Lactobacillus Rhamnosus 1 Cap PO 01/08/25 08:59 1 cap BID ARI Administration Megestrol Acetate 400 mg 12/06/24 11:15 12/09/24 07:59 Megestrol Acet Susp 400 Mg/10 Ml Udc PO 01/05/25 11:14 400 mg QDAY ARI Administration Midodrine 10 mg 12/05/24 09:15 12/09/24 14:11 Midodrine 5 Mg Tablet PO 01/04/25 09:14 Not Given TID ARI Mirtazapine 7.5 mg 12/05/24 21:00 12/08/24 21:26 Mirtazapine 15 Mg Tablet PO 01/04/25 20:59 7.5 mg HS ARI Administration Polyethylene Glycol 17 gm 11/26/24 07:16 Polyethylene Glycol 17 Gm Packet PO 12/25/24 18:29 QDAY PRN CONSTIPATION Protocol Vitamin B Complex/Vit C/Folic Acid 1 tab 12/06/24 09:00 12/09/24 07:59 Vitamin B Complex Tablet PO 01/05/25 08:59 1 tab QDAY ARI Administration Plan Elle Garza is a 64-year-old male with a history of 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 Admitted to ICU for management of septic shock; downgraded and found to have neutropenic fever, pancytopenia, s/p port-a-cath removal for potential source of infection; s/p central line. Sepsis Acute hypoxic respiratory failure - resolved Neutropenic fever Acute Thrombocytopenia, severe secondary to CAP vs HAP DDx: Most likely chemotherapy-induced myelosuppression vs bacterial pneumonia vs fungal vs atypical (immunocompromised) - Blood/Urine Cx's : Negative x2 - Port-a-cath removed 11/30/2024 - On November 22 2024, was considering Empower trial for immunotherapy, and possible transfer to [place] for Terlatumab treatment - CT A/P 11/28/2023 showed numerous hepatic, left adrenal lesions, widespread bone mets - 3/4 SIRS criteria: HR 120 (>90), RR 23 (>20), WBC 2 (<4) + organ dysfunction with Cr 2.8 >2 - Previously treated with zosyn, azithromycin, vancomycin - Plt 16 -> transfused x2 over the last week -> PLT trending 30s at this time Plan: - Ordered blood culture x2. Will DC central line as possible nidus of infection. Will order PICC. - Continue IV Levaquin 750 mg (12/04 - - Continue IV Micafungin 100mg (11/28 - - Added IV Doxycycline 100mg BID (12/09 - - PRN Tylenol 650mg q6H PRN for fever >99.9 - Discontinued Filgrastim daily as ANC 1680 >1500 - PRN Midodrine 10 mg PO TID - Monitor vitals closely. Will continue symptomatic management at this time. Fluid overload Congestive nephropathy in the setting of Stage IV Lung cancer with metastates - Diagnosed 2022 and started on chemotherapy and radiation therapy. Last dose November 22 2024. - CXR (12/07): b/l perihilar Lt basilar pneumonia and moderate vascular congestion - 12/07: Cr: 2.8 BUN: 58 eGFR 24, urine output: 3750mL - 12/08: Cr 2.6, BUN 59, eGFR 27 - 12/09 RFT: Creatinine 2.8 --> 2.4 and GFR 25 -> 29 Plan: - Continue Lasix 80 mg twice daily at this time - Cr trending in the right direction. Nephrology on board, appreciate recommendations. - Continue with aggressive diuresis until creatinine trends up again, at which point consider a diuretic holiday and resuming diuresis every other day. - Strict I/O monitoring - Continue albumin 25mg qD x1 PRN - Fluid intake restricted to 1200mL - Avoid nephrotoxic medications - Renal dose adjustments for all medications as indicated - Consulted Oncology Dr. Forrester, appreciate recs. And Radiation Oncology, Dr. Ugarte consulted, appreciate recs. Protein calorie malnutrition - Protein 5.1 -> 5.5 - Albumin 2.8 -> 3.4 - significant muscle wasting - loss of subcutaneous fat - nutritional intake of <50% of recommended intake for > 2 weeks - bedridden or otherwise significantly reduced functional capacity Plan: - Consult to registered vascular technologist (rvt) - Megesterol acetate PO 400mg QD - Will consider TPN after we diurese the patient to help improve his vascular pulmonary congestion Transaminitis, improving Most likely ischemic hepatitis secondary to prior septic shock. [id number] diagnosis is acute viral hepatitis, which has been ruled out by negative panel. Less likely is hepatic infiltration by metastases; CT shows lesions but no acute findings. Plan: - GI specialist Dr. Galan was consulted, appreciate recommendations - Follow-up in the acute hepatitis panel including viral marker, serial plasmin, autoimmune antibodies - Pending TERESSA and anti-mitochondrial Ab - Monitor for jaundice or worsening liver function. - Supportive care; avoid hepatotoxic medications. Will decrease the dose of acetaminophen to 500 mg every 6 hours with max dose of 2 g/day. New onset diabetes mellitus HbA1c 6.5%, no previous recorded A1c available. - Dietary and lifestyle modifications. - Target glucose 140-180 mg/dL. - Outpatient follow-up with PCP for further management. Hospital Management: Disposition: Tele, pending hospice placement Diet: cardiac with 1.2 L fluid restriction, ensure IV lines: PIV, right jugular vein central line GI Prophylaxis: Stopped Protonix 40mg qday DVT Prophylaxis: No chemical Px. CODE STATUS: Full Code Plan of care discussed with attending Dr Downing, - Ubaldo Landa M.D. PGY3 Disclaimer: Minor errors in fund raiser may be present as this note was dictated using voice recognition software. Attending Provider Attestation/Addendum I reviewed labs, imaging, EKG, home medications and prior available records. Face to face evaluation was performed by me. I have personally examined the patient and discussed assessment and plan with the IM team. I reviewed the resident note and agree with the plan with exceptions as below. Acute hypoxic respiratory failure, in the setting of pulmonary edema and anasarca Neutropenic fever Pancytopenia, in the setting of chemotherapy Septic shock: Possibly due to left-sided pneumonia versus Port-A-Cath infection versus colitis Acute kidney injury, possibly intrinsic in setting of chemotherapy versus shock Acute liver injury, likely in setting of hypotension and congestive hepatopathy Acute encephalopathy, likely hypoactive delirium in the setting of acute illness Goals of care discussion/counseling Started IV Lasix. Increased Lasix to 80 mg IV twice daily Patient experienced respiratory distress. He had worsening oxygen requirements. Ordered chest x-ray that showed pulmonary edema. Ordered IV Lasix Ordered repeat CT scan with oral contrast of the abdomen/pelvis that showed severe colitis, likely source of sepsis versus atypical pneumonia Ordered DuoNeb for wheezing Changed antibiotics to levofloxacin and micafungin Repeat blood cultures are negative to date Ordered stool cultures, C. difficile, ova and parasitology Removed port a cath by general surgery Trend CBC: He has significant pancytopenia. Transfuse PRBC/platelet products as needed and continue to monitor Finished Neupogen as absolute neutrophil count is now 1.5 Consulted ID who agreed on switching Zosyn to levofloxacin Consulted nephrology who is following the case Consulted GI who ordered further workup to rule out hepatitis and to investigate transaminitis Monitor kidney function:Avoid nephrotoxins Discussed goals of care: Will continue full treatment for now. He is full code. Family is considering DNR but still thinking about
--- NOTE | 2024-12-09 16:05 | PD.IMPROG ---
Documentation for date of: 12/09/24 Subjective Subjective Interval history: Patient evaluated Hemoglobin hematocrit trending upwards and the thrombocytopenia and leukopenia is also improving at 2.7 and 34K No signs of any active bleeding LFTs are also trending downwards with the latest total bilirubin 0.9 AST 75 ALT 37 and alk phos 253 Exam Vital Signs Temp Pulse Resp BP Pulse Ox O2 Del Method O2 Flow Rate 97.0 F 113 H 21 H 116/72 92 L Nasal Cannula 5 12/09/24 12:00 12/09/24 14:11 12/09/24 12:00 12/09/24 14:11 12/09/24 12:00 12/09/24 12:00 12/09/24 12:00 Objective Labs 12/09/24 05:29 12/09/24 05:29 Labs: Laboratory Results - last 24 hr 12/09/24 12/09/24 05:29 11:14 WBC 2.7 L RBC 2.82 L Hgb 8.0 L Hct 23.9 L MCV 85 MCH 28.4 MCHC 33.5 RDW Std Deviation 71.7 H Plt Count 34 L D Neut % (Auto) 68 Lymph % (Auto) 5 L Baxter % (Auto) 15 H Eos % (Auto) 0 Baso % (Auto) 0 Neut # (Auto) 1.8 Lymph # (Auto) 0.1 L Baxter # (Auto) 0.4 Eos # (Auto) 0.0 Baso # (Auto) 0.0 Immature Gran # (Auto) 0.30 H Absolute Nucleated RBC 0.02 H Immature Gran % 11 H Nucleated RBC % 1 H Sodium 144 Potassium 3.2 L Chloride 101 Carbon Dioxide 32.3 H Anion Gap 11 BUN 55 H Creatinine 2.4 H Estim Creat Clear Calc 30.8 L eGFR 29 L BUN/Creatinine Ratio 23 H Glucose 116 H Calculated Osmolality 302 H Calcium 8.9 Corrected Calcium 9.4 Phosphorus 3.6 Magnesium 1.8 Total Bilirubin 0.9 AST 76 H ALT 37 Alkaline Phosphatase 253 H D Total Protein 5.5 L Albumin 3.4 Globulin 2.1 L Albumin/Globulin Ratio 1.6 Stool for White Cells 1+ A Stl C. diff Tox B Gene Negative Misc Test Result Platelets confirmed Impressions Impression: Pancytopenia improving it was chemotherapy induced No signs of any active bleeding Improving LFTs Continue current management ABG Interpretation ABG results: 12/07/24 08:11 ABG pH 7.46 H ABG pCO2 36 ABG pO2 58 L* ABG HCO3 26 ABG O2 Saturation 92 ABG Base Excess 2 Assessment & Plan A&P Narrative A#1. Small cell CA of the lung initially limited now extensive prior chemoradiation now receiving additional chemo with Dr. Rutledge at the cancer treatment center A#2. Admitted with pancytopenia neutropenic fever receiving antibiotics micafungin filgrastim platelet transfusions. A#3. Abnormal LFTs Dr. Galan has seen patient and workup for chronic active hepatitis in progress. Time Spent With Patient Time: Total time spent is greater than 50% in coordination of care (as documented) at patient's floor/unit and/or counseling patient:
[2024-12-09] MEDS: LEVOFLOXACIN/D5W 750MG IVPB 750 MG/150 ML BAG 100 MG IV (17:34)
[2024-12-09] MEDS: MIRTAZAPINE 15 MG TABLET 7.5 MG PO (20:38)
[2024-12-10] VITALS (16 sets, daily range): BP systolic 90–114; BP diastolic 61–78; PULSE 105–120; RESP 19–25; TEMP 36.4–36.7; O2SAT 94–100; BMI 29.1
[2024-12-10 06:13] LABS: Basophils # (Auto) 0.0 Thou/mm3 (0.0-0.2); Basophils % (Auto) 0 % (0-2.5); Eosinophils # (Auto) 0.0 Thou/mm3 (0.0-0.5); Eosinophils % (Auto) 0 % (0-10); Immature Granulocytes Auto 0.05 Thou/mm3 (0.00-0.00); Lymphocytes # (Auto) 0.5 Thou/mm3 (1.0-4.8); Lymphocytes % (Auto) 13 % (10-50); Mean Corpuscular HGB Conc 33.5 g/dl (31.0-37.0); Mean Corpuscular Hemoglobin 28.5 pg (25.0-35.0); Mean Corpuscular Volume 85 fL (80-100); Monocytes # (Auto) 0.6 Thou/mm3 (0.0-0.8); Monocytes % (Auto) 17 % (0-12); Neutrophils # (Auto) 2.4 Thou/mm3 (1.8-7.7); Neutrophils % (Auto) 69 % (37-80); Nucleated Red Blood Cell # 0.03 Thou/mm3 (0.00-0.00); Nucleated Red Blood Cell % 1 /100 WBC (0); RDW Standard Deviation 71.4 fL (35.1-43.9); Red Blood Count 2.39 Miln/mm3 (4.50-5.90); White Blood Count 3.5 Thou/mm3 (3.8-10.6)
[2024-12-10 06:19] LABS: Hematocrit 20.3 % (41.0-53.0); Hemoglobin 6.8 g/dL (13.5-16.0)
[2024-12-10 06:20] LABS: Platelet Count 22 Thou/mm3 (140-440)
[2024-12-10 06:35] LABS: Alanine Aminotransferase 31 U/L (10-49); Albumin, Serum 3.4 gm/dL (3.4-4.8); Albumin/Globulin Ratio 1.5 (1.2-2.2); Alkaline Phosphatase 217 U/L (46-116); Anion Gap 13 (7-16); Aspartate Amino Transferase 69 U/L (0-34); BUN/Creatinine Ratio 21 Ratio (12-20); Bilirubin,Total 1.0 mg/dL (0.3-1.2); Blood Urea Nitrogen 52 mg/dL (9-23); Calcium 9.2 mg/dL (8.3-10.6); Calcium (Corrected) 9.7 mg/dL (8.5-10.1); Carbon Dioxide 32.3 mMol/L (20.0-31.0); Chloride 100 mMol/L (98-107); Creatinine (Component) 2.5 mg/dL (0.6-1.3); Estimated Creatinine Clearance 28.4 mL/min (>60); Globulin 2.2 gm/dL (2.3-3.5); Glucose 105 mg/dL (74-106); Magnesium 2.0 mg/dL (1.6-2.6); Osmolality,Calculated 302 (275-295); Phosphorous 2.8 mg/dL (2.4-5.1); Potassium 3.5 mMol/L (3.4-5.1); Sodium 145 mMol/L (136-145); Total Protein 5.6 gm/dL (5.7-8.2); eGFR 28 See Note
--- NOTE | 2024-12-10 06:38 | PC.NURSE ---
Received phone call regarding critical lab values for patient (Hb.8, Hct: 20.3, Plt, 22). Night . Dr. North contacted and notified regarding results. No new orders received from MD and Per MD, will pass it on to day team hospitalist. Charge nurse has been also notified regarding critical lab values.
[2024-12-10 08:01] LABS: Slide Review Platelets confirmed
[2024-12-10 08:37] LABS: Hematocrit 32.0 % (41.0-53.0); Hemoglobin 10.6 g/dL (13.5-16.0)
--- NOTE | 2024-12-10 08:50 | PD.RESPRO ---
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 Rutledge and Dr. Ugarte at [facility] presents to the emergency room with worsening fatigue and a feeling of heaviness in his chest for the past 4 days. His symptoms began after a chemotherapy session on November 22. He is accompanied by his brother, who is providing translation. The patient reports feeling more tired than usual since his last chemotherapy session. He has also had a cough and a subjective fever. He denies shortness of breath. He describes a feeling of heaviness in his chest. His brother notes that the patient's white blood cell count was low on both Friday and Friday before the chemotherapy was administered. The patient's brother reports that the patient was constipated after chemotherapy but has not had diarrhea. There are no sick contacts at home. Patient is not complaining of any chest pain or shortness of breath. 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 12/02/2024: patient seen and examined at bedside, he is shivering and reports feeling very cold. he continued to have fevers overnight to 104, he remains on reverse contact precautions. Cr 2.4 from 2.6, BUN 43 GFR 29. remains tachycardic to 120s and BP is normotensive 12/03/2024: Patient seen and examined at bedside patient is seen with cooling packs underneath and cold towel on forehead he was shivering and fan is on hand he remains febrile to 104. Hematuria noted from Zhao catheter his platelets are less than 5, primary team to give platelets. Creatinine 2.3 BUN 46 he remains tachycardic. 12/04/2024: Patient seen and examined at bedside patient fevers are notably better compared to yesterday Tmax of 103 however patient is currently afebrile, patient remains tachycardic he received 1 unit platelets yesterday platelets bumped to 17 today hematuria improved today in Zhao bag yellow clear, creatinine remains at 2.4, overall he appears clinically improved today compared to yesterday. CTAP with renal calculi noted in the right renal pelvis nonobstructive. continue IV fluids with half-normal saline. 12/07/2024: Labs reviewed and patient examined at the bedside. Patient currently afebrile. Cr 2.8 and Urine Output of 3750mL. Continue to monitor for renal improvement. BP: 129/85 12/08/2024: Patient afebrile, but remaining tachycardic. Patient continues with dry cough. Patient's urine looks clear yellow. BP 107/67 Cr:2.6 BUN:59, eGFR:27, Urine output:4175mL. Patient makes optimal amount of urine and creatine levels stable. Continue to monitor for renal improvement. Continue supportive care. 12/09/2024: Labs reviewed and patient examined at the bedside. Patient is afebrile. Patient complains of generalized weakness. Continues intermittent dry cough. BP 131/96 Cr:2.4 BUN:55, eGFR:29, Urine output:3.4L. Patient makes optimal amount of urine and creatine levels stable. Continue to monitor for renal improvement. Continue supportive care. Patient currently looks euvolemic. Recommend to lower or discontinue Lasix. 12/10/2024: Labs reviewed and patient examined at the bedside. Patient still complains of generalized weakness. BP:108/67, Cr: 2.5, BUN:52, eGFR:28, Urine Output: 3.9 Na:145. Sodium, Creatinine, and urine output in increasing trend, which are signs of dehydration. Hold Lasix for now. Increase PO fluid intake. Exam Vital Signs Temp Pulse Resp BP Pulse Ox O2 Del Method O2 Flow Rate 97.7 F 117 H 19 108/67 94 L Nasal Cannula 5 12/10/24 04:00 12/10/24 05:06 12/10/24 04:00 12/10/24 05:06 12/10/24 04:00 12/10/24 04:00 12/10/24 04:00 Narrative Exam GENERAL: Sick looking gentleman seen in reverse isolation. HEENT: Head AT/ NC. Mucous membranes dry. NECK: Supple, no lymphadenopathy, CARDIOVASCULAR: Sinus tachycardia. Normal S1/S2, + murmur. No pitting edema of bilateral LEs. s/p removal of chemo port on right upper chest no drainage no dehiscence no pus intact RESPIRATORY: CTAB. No wheezing, rhonchi, crackles. tachypnic. GASTROINTESTINAL: Abdomen less tense, however it remains tympanic, distended, non tender no palpable masses. Bowel sounds present : Zhao catheter noted with clear yellow urine MUSCULOSKELETAL:? No cyanosis or edema, no visible joint swelling. NEUROLOGICAL: Patient barely arousable. SKIN: No obvious rashes, no jaundice, normal turgor. Objective Labs 12/11/24 04:52 12/11/24 04:52 Labs: Laboratory Results - last 24 hr 12/09/24 12/10/24 11:14 05:54 WBC 3.5 L RBC 2.39 L Hgb 6.8 L* Hct 20.3 L* MCV 85 MCH 28.5 MCHC 33.5 RDW Std Deviation 71.4 H Plt Count 22 L* D Neut % (Auto) 69 Lymph % (Auto) 13 Treasure % (Auto) 17 H Eos % (Auto) 0 Baso % (Auto) 0 Neut # (Auto) 2.4 Lymph # (Auto) 0.5 L Treasure # (Auto) 0.6 Eos # (Auto) 0.0 Baso # (Auto) 0.0 Immature Gran # (Auto) 0.05 H Absolute Nucleated RBC 0.03 H Immature Gran % 1 H Nucleated RBC % 1 H Sodium 145 Potassium 3.5 Chloride 100 Carbon Dioxide 32.3 H Anion Gap 13 BUN 52 H Creatinine 2.5 H Estim Creat Clear Calc 28.4 L eGFR 28 L BUN/Creatinine Ratio 21 H Glucose 105 Calculated Osmolality 302 H Calcium 9.2 Corrected Calcium 9.7 Phosphorus 2.8 Magnesium 2.0 Total Bilirubin 1.0 AST 69 H ALT 31 Alkaline Phosphatase 217 H D Total Protein 5.6 L Albumin 3.4 Globulin 2.2 L Albumin/Globulin Ratio 1.5 Stool for White Cells 1+ A Stl C. diff Tox B Gene Negative Misc Test Result Platelets confirmed ABG Interpretation ABG results: 12/07/24 08:11 ABG pH 7.46 H ABG pCO2 36 ABG pO2 58 L* ABG HCO3 26 ABG O2 Saturation 92 ABG Base Excess 2 Quality Measures Quality Measures none (holding heparin for low platelets) Assessment & Plan Assessment Current Active Medications: Generic Name Dose Route Start Last Admin Trade Name Freq PRN Reason Stop Dose Admin Acetaminophen 650 mg 12/09/24 07:56 Acetaminophen 325 Mg Tablet PO 01/04/25 09:02 Q6HR PRN Fever > 99.9 Benzonatate 100 mg 11/30/24 10:46 12/08/24 00:58 Benzonatate 100 Mg Capsule PO 12/30/24 10:45 100 mg Q8HR PRN Administration COUGH Protocol Calcium Carbonate 600 mg 11/25/24 20:00 12/09/24 07:59 Calcium Carbonate 600 Mg Tablet PO 12/25/24 19:59 600 mg QDAY ARI Administration Furosemide 80 mg 12/07/24 18:00 12/09/24 17:34 Furosemide Inj 10 Mg/Ml 4ml Vial IVP 01/06/25 17:59 80 mg On Hold: 12/09/24 21:25 BIDD ARI Administration Micafungin Sodium 100 mg/ 100 mls @ 100 mls/hr 11/28/24 09:00 12/09/24 08:00 Sodium Chloride IV 12/13/24 08:59 100 mls/hr QDAY ARI Administration Doxycycline Hyclate 100 mg/ 100 mls @ 100 mls/hr 12/09/24 09:00 12/09/24 20:39 Sodium Chloride IV 12/16/24 08:59 100 mls/hr BID ARI Administration Levofloxacin/Dextrose 750 mg in 150 mls @ 100 mls/hr 12/09/24 17:15 12/09/24 17:34 Levaquin Ivpb IV 12/16/24 17:14 100 mls/hr Q48H ARI Administration Protocol Lactobacillus Rhamnosus 1 cap 12/09/24 09:00 12/09/24 20:39 Lactobacillus Rhamnosus 1 Cap PO 01/08/25 08:59 1 cap BID ARI Administration Megestrol Acetate 400 mg 12/06/24 11:15 12/09/24 07:59 Megestrol Acet Susp 400 Mg/10 Ml Udc PO 01/05/25 11:14 400 mg QDAY ARI Administration Midodrine 10 mg 12/05/24 09:15 12/10/24 05:06 Midodrine 5 Mg Tablet PO 01/04/25 09:14 Not Given TID ARI Mirtazapine 7.5 mg 12/05/24 21:00 12/09/24 20:38 Mirtazapine 15 Mg Tablet PO 01/04/25 20:59 7.5 mg HS ARI Administration Polyethylene Glycol 17 gm 11/26/24 07:16 Polyethylene Glycol 17 Gm Packet PO 12/25/24 18:29 QDAY PRN CONSTIPATION Protocol Vitamin B Complex/Vit C/Folic Acid 1 tab 12/06/24 09:00 12/09/24 07:59 Vitamin B Complex Tablet PO 01/05/25 08:59 1 tab QDAY ARI Administration Plan Mr. 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 Rutledge and Dr. Ugarte at [facility] presents to the emergency room with worsening fatigue and a feeling of heaviness in his chest admitted to ICU for neutropenic fever. Fevers are slightly improved today compared to yesterday clinically patient appears in less distress less shivering. Cr remains elevated, well above baseline. RAMSES Ddx: Consider pre vs intra vs post renal etiologies Dx - Daily CMP - renal US with small kidneys and cortical thinning, no hydronephrosis, no stones - UA 1+ protein, 3+ blood, ?amorphous crystals - Hematuria resolved Zhao bag with clear yellow urine - Nonobstructive renal calculi noted on CTAP, mild hydronephrosis noted - Currently, BP:108/67, Cr: 2.5, BUN:52, eGFR:28, Urine Output: 3.9 Na:145. Tx - Avoid nephrotoxic medications - strict i and o, patient has good urine output - Patient makes optimal amount of urine and creatine levels stable. Continue to monitor for renal improvement. Continue supportive care. - Sodium, Creatinine, and urine output in increasing trend, which are signs of dehydration. Hold Lasix for now. Increase PO fluid intake. Neutropenic Fever of unkown origin-improving CAP Stage IV metastatic Small cell lung cancer Transaminitis hypoalbuminemia pancytopenia normocytic anemia hematuria likely 2/2-resolved thrombocytopenia (PLT <5) - management per primary team Assessment and plan discussed with my attending physician Dr. Keith Small ([id number])- Internal medicine resident Attending Provider Attestation/Addendum Patient seen and examined with resident physician Dr. Small. Note reviewed, agree with findings and recommendations. RAMSES seems to be more prerenal azotemia. Patient still remains very sick looking and extremely fatigued. Today he seems to be more alert and awake. Encourage p.o. fluids. Zhao catheter with good urine output. Will monitor closely. Off IV fluids. Currently on Lasix which can be held as clinically he looks euvolemic. Spoke to primary team Patient with a significant pancytopenia and is on reverse isolation. WBC better.
--- NOTE | 2024-12-10 10:00 | XR_ITS ---
Examination: Ultrasound-guided needle placement right cephalic vein. Dual-lumen central line placement (PICC line). Fluoroscopy AP chest, portable, single view Exam date and time:December 10, 2024, 1247 hours INDICATIONS: Need for long-term intravenous antibiotic therapy for bacteremia A timeout was completed verifying correct patient, procedure, site, positioning Informed consent provided Technique: The patient's site was prepped and draped in sterile fashion. Maximum Sterile Barrier Technique used including cap, mask, sterile gown, sterile gloves, and sterile full body drape. If ultrasound technique used: sterile gel and sterile probe covers. Hand Hygiene performed using proper scrub, soap and water, or alcohol-based hand rub. Ultrasound thyroid portable apparatus utilized to confirm patency of the cephalic vein Utilizing ultrasonographic guidance successful 21-gauge needle puncture into the right cephalic vein Ultrasound images recorded and stored. 5 cc 1% lidocaine administered for local anesthetic. Successful micropuncture with a 21-gauge needle is performed. 0.18 wire guide is then introduced into the SVC under fluoroscopic guidance. Dual-lumen catheter dilator is then introduced, followed by the catheter in the SVC and proper position under fluoroscopic guidance. Successful aspiration of blood and flushing with heparinized saline is then performed in the 2 venous limbs. The catheter sutured in place. Findings: Under fluoroscopy, the tip of the catheter is in good position in the vena cava. Portable chest x-ray, post line placement is ordered. Estimated blood loss 3 cc The patient tolerated the procedure well and was in stable and satisfactory condition at completion of the procedure Impression: Successful ultrasound-guided needle placement cephalic vein Successful placement of dual lumen central line, percutaneous Fluoroscopy 0.2 minute radiation dose 2.24 milligray 1 spot fluoroscopic chest film. AP chest completion procedure demonstrates satisfactory position central line. May use central line.
[2024-12-10] MEDS: DOXYCYCLINE INJ 100 MG in SODIUM CHLORIDE 0.9% (POP) 100 ML IV ×2 (10:12→20:21)
[2024-12-10] MEDS: MICAFUNGIN SODIUM INJ 100 MG in SODIUM CHLORIDE 0.9% 100 ML IV (10:12)
[2024-12-10] MEDS: LACTOBACILLUS RHAMNOSUS 1 CAP PO ×2 (10:13→20:20)
[2024-12-10] MEDS: CALCIUM CARBONATE 600 MG TABLET PO (10:13)
[2024-12-10] MEDS: MEGESTROL ACET SUSP 400 MG/10 ML UDC PO (10:13)
[2024-12-10] MEDS: HEPARIN SOD LOCK SYR 100 UNIT/ML 500 UNIT STFIELD (13:32)
[2024-12-10] MEDS: LIDOCAINE INJ PF 1% 30 ML VIAL INFL (13:32)
--- NOTE | 2024-12-10 13:52 | PC.NURSE ---
[id number] patient had picc line insertion to right arm, dressing clean, dry and intact, report given to Dayana MCNEAL, patient transferred back to room 278 with tele box
--- NOTE | 2024-12-10 15:12 | ESPR_ITS ---
<Statement entered by Jale Downing MD - 12/16/24 07:13> I reviewed above note and agree with findings and plans. I have also personally examined the patient with medicine team and went over assessment and plan with medical team including internet ecommerce specialist and resident physician. <Statement entered by Ubaldo Landa MD - 12/12/24 07:04> Patient examined and case discussed with the team including attending physician. Note reviewed, I agree with the care plan as documented. Please refer to the note below for further details. - Ubaldo Landa MD, PGY 3 Disclaimer: The document may contain phonetic/typographic errors due to voice recognition software. These errors are purely due to imperfections in the software program. Documentation for date of: 12/10/24 Subjective Subjective Interval history: Patient was seen and examined at bedside. No acute events took place overnight. Mentation is improved, he is more alert and conversant about his health. Reports no bodily pain. Per family at bedside, patient is tolerating diet and eats about 40% of his home made Mediterranean meals. Nurse pointed large ecchymosis on the Lt side of abdomen. Central line likely the source of fevers, will DC and get blood cultures. PICC line requested to continue antibiotics and IV Tx. Patient family to arrive from [place] in next 10 days. Family would like to hold off on any changes to code status at this time. Exam Vital Signs Temp Pulse Resp BP Pulse Ox O2 Del Method O2 Flow Rate 97.8 F 115 H 20 104/65 98 Nasal Cannula 5 12/10/24 08:00 12/10/24 13:50 12/10/24 13:50 12/10/24 13:50 12/10/24 13:50 12/10/24 13:50 12/10/24 13:50 Narrative Exam Constitutional Alert, oriented x1. On 3L via NC, sats 94-96% HEENT Vision grossly intact. Patent nares. Trachea midline. RT IJ catheter in place. Respiratory Chest normal on inspection, diffuse soft crackles on auscultation. Cardiovascular S1 and S2 audible, RRR. No murmurs or carotid bruit. No gross JVD. Abdominal Soft and BS + ; non tender to palpation in all quadrants. Large ecchymosis over the Lt abdominal wall. Genitourinary No bladder tenderness, no flank pain. Zhao in place, good UO. Musculoskeletal Extremities tone within normal limits. No LE edema. Neurological CN II - XII grossly intact. Extremity motor and sensation grossly intact. Skin Warm, dry and intact. Senile purpura. Psychiatric Patient has a good affect, is somewhat cooperative. Objective Labs 12/10/24 08:12 12/10/24 05:54 Labs: Laboratory Results - last 24 hr 12/09/24 12/10/24 12/10/24 11:14 05:54 08:12 WBC 3.5 L RBC 2.39 L Hgb 6.8 L* 10.6 L D Hct 20.3 L* 32.0 L D MCV 85 MCH 28.5 MCHC 33.5 RDW Std Deviation 71.4 H Plt Count 22 L* D Neut % (Auto) 69 Lymph % (Auto) 13 [place] % (Auto) 17 H Eos % (Auto) 0 Baso % (Auto) 0 Neut # (Auto) 2.4 Lymph # (Auto) 0.5 L [place] # (Auto) 0.6 Eos # (Auto) 0.0 Baso # (Auto) 0.0 Immature Gran # (Auto) 0.05 H Absolute Nucleated RBC 0.03 H Immature Gran % 1 H Nucleated RBC % 1 H Sodium 145 Potassium 3.5 Chloride 100 Carbon Dioxide 32.3 H Anion Gap 13 BUN 52 H Creatinine 2.5 H Estim Creat Clear Calc 28.4 L eGFR 28 L BUN/Creatinine Ratio 21 H Glucose 105 Calculated Osmolality 302 H Calcium 9.2 Corrected Calcium 9.7 Phosphorus 2.8 Magnesium 2.0 Total Bilirubin 1.0 AST 69 H ALT 31 Alkaline Phosphatase 217 H D Total Protein 5.6 L Albumin 3.4 Globulin 2.2 L Albumin/Globulin Ratio 1.5 Stl C. diff Tox B Gene Negative Misc Test Result Platelets confirmed Blood Type Antibody Screen Crossmatch Blood Bank Wristband ID 12/10/24 09:01 WBC RBC Hgb Hct MCV MCH MCHC RDW Std Deviation Plt Count Neut % (Auto) Lymph % (Auto) [place] % (Auto) Eos % (Auto) Baso % (Auto) Neut # (Auto) Lymph # (Auto) [place] # (Auto) Eos # (Auto) Baso # (Auto) Immature Gran # (Auto) Absolute Nucleated RBC Immature Gran % Nucleated RBC % Sodium Potassium Chloride Carbon Dioxide Anion Gap BUN Creatinine Estim Creat Clear Calc eGFR BUN/Creatinine Ratio Glucose Calculated Osmolality Calcium Corrected Calcium Phosphorus Magnesium Total Bilirubin AST ALT Alkaline Phosphatase Total Protein Albumin Globulin Albumin/Globulin Ratio Stl C. diff Tox B Gene Misc Test Result Blood Type A Positive Antibody Screen NEGATIVE Crossmatch See Detail Blood Bank Wristband ID Yes ABG Interpretation ABG results: 12/07/24 08:11 ABG pH 7.46 H ABG pCO2 36 ABG pO2 58 L* ABG HCO3 26 ABG O2 Saturation 92 ABG Base Excess 2 Quality Measures Quality Measures none (holding heparin for low platelets) Assessment & Plan Assessment Current Active Medications: Generic Name Dose Route Start Last Admin Trade Name Freq PRN Reason Stop Dose Admin Acetaminophen 650 mg 12/09/24 07:56 Acetaminophen 325 Mg Tablet PO 01/04/25 09:02 Q6HR PRN Fever > 99.9 Benzonatate 100 mg 11/30/24 10:46 12/08/24 00:58 Benzonatate 100 Mg Capsule PO 12/30/24 10:45 100 mg Q8HR PRN Administration COUGH Protocol Calcium Carbonate 600 mg 11/25/24 20:00 12/10/24 10:13 Calcium Carbonate 600 Mg Tablet PO 12/25/24 19:59 600 mg QDAY ARI Administration Furosemide 80 mg 12/07/24 18:00 12/09/24 17:34 Furosemide Inj 10 Mg/Ml 4ml Vial IVP 01/06/25 17:59 80 mg On Hold: 12/09/24 21:25 BIDD ARI Administration Micafungin Sodium 100 mg/ 100 mls @ 100 mls/hr 11/28/24 09:00 12/10/24 10:12 Sodium Chloride IV 12/13/24 08:59 100 mls/hr QDAY ARI Administration Doxycycline Hyclate 100 mg/ 100 mls @ 100 mls/hr 12/09/24 09:00 12/10/24 10:12 Sodium Chloride IV 12/16/24 08:59 100 mls/hr BID ARI Administration Levofloxacin/Dextrose 750 mg in 150 mls @ 100 mls/hr 12/09/24 17:15 12/09/24 17:34 Levaquin Ivpb IV 12/16/24 17:14 100 mls/hr Q48H ARI Administration Protocol Lactobacillus Rhamnosus 1 cap 12/09/24 09:00 12/10/24 10:13 Lactobacillus Rhamnosus 1 Cap PO 01/08/25 08:59 1 cap BID ARI Administration Megestrol Acetate 400 mg 12/06/24 11:15 12/10/24 10:13 Megestrol Acet Susp 400 Mg/10 Ml Udc PO 01/05/25 11:14 400 mg QDAY ARI Administration Midodrine 10 mg 12/05/24 09:15 12/10/24 14:21 Midodrine 5 Mg Tablet PO 01/04/25 09:14 Not Given TID ARI Mirtazapine 7.5 mg 12/05/24 21:00 12/09/24 20:38 Mirtazapine 15 Mg Tablet PO 01/04/25 20:59 7.5 mg HS ARI Administration Polyethylene Glycol 17 gm 11/26/24 07:16 Polyethylene Glycol 17 Gm Packet PO 12/25/24 18:29 QDAY PRN CONSTIPATION Protocol Vitamin B Complex/Vit C/Folic Acid 1 tab 12/06/24 09:00 12/10/24 12:59 Vitamin B Complex Tablet PO 01/05/25 08:59 Not Given QDAY ARI Plan 64-year-old male with a history of 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 Admitted to ICU for management of septic shock; downgraded and found to have neutropenic fever, pancytopenia, s/p port-a-cath removal for potential source of infection; s/p central line. A&P: Sepsis Acute hypoxic respiratory failure - resolved Neutropenic fever Acute Thrombocytopenia, severe secondary to CAP vs HAP DDx: Most likely chemotherapy-induced myelosuppression vs bacterial pneumonia vs fungal vs atypical (immunocompromised) - Blood/Urine Cx's : Negative x2 - Port-a-cath removed 11/30/2024 - On November 22 2024, was considering [facility] trial for immunotherapy, and possible transfer to [place] for Terlatumab treatment - CT A/P 11/28/2023 showed numerous hepatic, left adrenal lesions, widespread bone mets - 3/4 SIRS criteria: HR 110 (>90), RR 21 (>20), WBC 3.5(<4) + organ dysfunction with Cr 2.5 >2 - Previously treated with zosyn, azithromycin, vancomycin - transfused Plt x2 over the last week Plan: - Ordered blood culture x2. Will DC central line as possible nidus of infection. Will order PICC. - Continue IV Levaquin 750 mg (12/04 - - Continue IV Micafungin 100mg (11/28 - - Added IV Doxycycline 100mg BID (12/09 - - PRN Tylenol 650mg q6H PRN for fever >99.9 - Discontinued Filgrastim daily as ANC 1680 >1500 - PRN Midodrine 10 mg PO TID - Monitor vitals closely. Will continue symptomatic management at this time. Fluid overload Congestive nephropathy in the setting of Stage IV Lung cancer with metastates - Diagnosed 2022 and started on chemotherapy and radiation therapy. Last dose November 22 2024. - CXR (12/07): b/l perihilar Lt basilar pneumonia and moderate vascular congestion - BUN 52/55, Cr 2.5/2.4, eGFR - Patient was being diuresed with Lasix IV 80 mg twice daily until creatinine went up after having trended down while.? On 12/10 a diuresis holiday was implemented. Urine output on 12/09 was <3L.? Plan: - Nephrology on board, appreciate recommendations. - Sodium, Creatinine, and urine output in increasing trend, which are signs of dehydration. Hold Lasix for now. Increase PO fluid intake. - Strict I/O monitoring - Continue albumin 25mg qD x1 PRN - Fluid intake restricted to 1200mL - Avoid nephrotoxic medications - Renal dose adjustments for all medications as indicated - Consulted Oncology Dr. Forrester, appreciate recs. And Radiation Oncology, Dr. Ugarte consulted, appreciate recs. Protein calorie malnutrition - Protein 5.6, Albumin 3.4 - significant muscle wasting - loss of subcutaneous fat - nutritional intake of <50% of recommended intake for > 2 weeks - bedridden or otherwise significantly reduced functional capacity Plan: - Consult to travel registered nurse icu - Megesterol acetate PO 400mg QD - Will consider TPN after we diurese the patient to help improve his vascular pulmonary congestion Transaminitis, improving Most likely ischemic hepatitis secondary to prior septic shock. [id number] diagnosis is acute viral hepatitis, which has been ruled out by negative panel. Less likely is hepatic infiltration by metastases; CT shows lesions but no acute findings. Plan: - GI specialist Dr. Galan was consulted, appreciate recommendations - Follow-up in the acute hepatitis panel including viral marker, serial plasmin, autoimmune antibodies - Pending TERESSA and anti-mitochondrial Ab - Monitor for jaundice or worsening liver function. - Supportive care; avoid hepatotoxic medications. Will decrease the dose of acetaminophen to 500 mg every 6 hours with max dose of 2 g/day. New onset diabetes mellitus HbA1c 6.5%, no previous recorded A1c available. - Dietary and lifestyle modifications. - Target glucose 140-180 mg/dL. - Outpatient follow-up with PCP for further management. Hospital Management: Disposition: Tele, pending hospice placement Diet: cardiac with 1.2 L fluid restriction, ensure IV lines: PIV, right jugular vein central line GI Prophylaxis: Stopped Protonix 40mg qday DVT Prophylaxis: No chemical Px. CODE STATUS: Full Code This case was discussed with my attending physician, Dr. Downing, and senior resident Dr Landa. Toni Vasquez, DO PGY I
--- NOTE | 2024-12-10 15:23 | PC.SS ---
follow up note: SS spoke to patient's brother, Jorge, to discuss discharge plans. Jorge confirmed patient will be returning home and family will continue to care for him. Patient remains full code. Patient' family has not decided hospice yet. Patient's brother will be the main point of contact. Patient will need a wheelchair for home. If family decides upon hospice services, the hospice agency can provide all DME. Patient not medically ready for discharge.
--- NOTE | 2024-12-10 19:33 | PC.RT ---
accapella at bedside for cpt
[2024-12-10] MEDS: MIRTAZAPINE 15 MG TABLET 7.5 MG PO (20:20)
--- NOTE | 2024-12-10 21:23 | ESPR_ITS ---
Documentation for date of: 12/10/24 Subjective Subjective Interval history: No signs of any active bleeding still very thrombocytopenic at 22K Exam Vital Signs Temp Pulse Resp BP Pulse Ox O2 Del Method O2 Flow Rate 97.5 F 110 H 21 H 90/78 99 Nasal Cannula 5 12/10/24 16:00 12/10/24 19:33 12/10/24 19:33 12/10/24 16:00 12/10/24 19:33 12/10/24 16:00 12/10/24 19:33 Objective Labs 12/10/24 08:12 12/10/24 05:54 Labs: Laboratory Results - last 24 hr 12/10/24 12/10/24 12/10/24 05:54 08:12 09:01 WBC 3.5 L RBC 2.39 L Hgb 6.8 L* 10.6 L D Hct 20.3 L* 32.0 L D MCV 85 MCH 28.5 MCHC 33.5 RDW Std Deviation 71.4 H Plt Count 22 L* D Neut % (Auto) 69 Lymph % (Auto) 13 [place] % (Auto) 17 H Eos % (Auto) 0 Baso % (Auto) 0 Neut # (Auto) 2.4 Lymph # (Auto) 0.5 L [place] # (Auto) 0.6 Eos # (Auto) 0.0 Baso # (Auto) 0.0 Immature Gran # (Auto) 0.05 H Absolute Nucleated RBC 0.03 H Immature Gran % 1 H Nucleated RBC % 1 H Sodium 145 Potassium 3.5 Chloride 100 Carbon Dioxide 32.3 H Anion Gap 13 BUN 52 H Creatinine 2.5 H Estim Creat Clear Calc 28.4 L eGFR 28 L BUN/Creatinine Ratio 21 H Glucose 105 Calculated Osmolality 302 H Calcium 9.2 Corrected Calcium 9.7 Phosphorus 2.8 Magnesium 2.0 Total Bilirubin 1.0 AST 69 H ALT 31 Alkaline Phosphatase 217 H D Total Protein 5.6 L Albumin 3.4 Globulin 2.2 L Albumin/Globulin Ratio 1.5 Misc Test Result Platelets confirmed Blood Type A Positive Antibody Screen NEGATIVE Crossmatch See Detail Blood Bank Wristband ID Yes Impressions Impression: Thrombocytopenia, improving leukopenia Abnormal LFTs Metastatic lung carcinoma continue supportive care ABG Interpretation ABG results: 12/07/24 08:11 ABG pH 7.46 H ABG pCO2 36 ABG pO2 58 L* ABG HCO3 26 ABG O2 Saturation 92 ABG Base Excess 2 Assessment & Plan A&P Narrative A#1. Small cell CA of the lung initially limited now extensive prior chemoradiation now receiving additional chemo with Dr. Rutledge at the cancer treatment center A#2. Admitted with pancytopenia neutropenic fever receiving antibiotics micafungin filgrastim platelet transfusions. A#3. Abnormal LFTs Dr. Galan has seen patient and workup for chronic active hepatitis in progress. Time Spent With Patient Time: Total time spent is greater than 50% in coordination of care (as documented) at patient's floor/unit and/or counseling patient:
[2024-12-11] VITALS (19 sets, daily range): BP systolic 105–134; BP diastolic 68–90; PULSE 92–124; RESP 16–29; TEMP 36.5–37.8; O2SAT 96–100; BMI 29.0
[2024-12-11 05:37] LABS: Basophils # (Auto) 0.0 Thou/mm3 (0.0-0.2); Basophils % (Auto) 1 % (0-2.5); Eosinophils # (Auto) 0.0 Thou/mm3 (0.0-0.5); Eosinophils % (Auto) 0 % (0-10); Hematocrit 21.2 % (41.0-53.0); Immature Granulocytes Auto 0.05 Thou/mm3 (0.00-0.00); Lymphocytes # (Auto) 0.7 Thou/mm3 (1.0-4.8); Lymphocytes % (Auto) 17 % (10-50); Mean Corpuscular HGB Conc 32.5 g/dl (31.0-37.0); Mean Corpuscular Hemoglobin 28.0 pg (25.0-35.0); Mean Corpuscular Volume 86 fL (80-100); Monocytes # (Auto) 0.6 Thou/mm3 (0.0-0.8); Monocytes % (Auto) 16 % (0-12); Neutrophils # (Auto) 2.6 Thou/mm3 (1.8-7.7); Neutrophils % (Auto) 66 % (37-80); Nucleated Red Blood Cell # 0.02 Thou/mm3 (0.00-0.00); Nucleated Red Blood Cell % 1 /100 WBC (0); RDW Standard Deviation 73.0 fL (35.1-43.9); Red Blood Count 2.46 Miln/mm3 (4.50-5.90); White Blood Count 4.0 Thou/mm3 (3.8-10.6)
[2024-12-11 05:50] LABS: Hemoglobin 6.9 g/dL (13.5-16.0); Platelet Count 14 Thou/mm3 (140-440)
[2024-12-11 05:53] LABS: Alanine Aminotransferase 28 U/L (10-49); Albumin, Serum 3.3 gm/dL (3.4-4.8); Albumin/Globulin Ratio 1.5 (1.2-2.2); Alkaline Phosphatase 198 U/L (46-116); Anion Gap 12 (7-16); Aspartate Amino Transferase 60 U/L (0-34); BUN/Creatinine Ratio 23 Ratio (12-20); Bilirubin,Total 1.1 mg/dL (0.3-1.2); Blood Urea Nitrogen 50 mg/dL (9-23); Calcium 8.9 mg/dL (8.3-10.6); Calcium (Corrected) 9.5 mg/dL (8.5-10.1); Carbon Dioxide 32.5 mMol/L (20.0-31.0); Chloride 103 mMol/L (98-107); Creatinine (Component) 2.2 mg/dL (0.6-1.3); Estimated Creatinine Clearance 32.2 mL/min (>60); Globulin 2.2 gm/dL (2.3-3.5); Glucose 101 mg/dL (74-106); Magnesium 1.9 mg/dL (1.6-2.6); Osmolality,Calculated 305 (275-295); Phosphorous 3.0 mg/dL (2.4-5.1); Potassium 3.3 mMol/L (3.4-5.1); Sodium 147 mMol/L (136-145); Total Protein 5.5 gm/dL (5.7-8.2); eGFR 33 See Note
--- NOTE | 2024-12-11 05:57 | PC.NURSE ---
Was contacted by lab regarding critical values (Hbg 6.9 and Plt 14). Hospitalist MD. Dr. Henriquez was then contacted and made aware of critical lab values. Per MD. Dr. Henriquez, go ahead a transfuse blood now.
[2024-12-11 06:21] LABS: Slide Review Platelets confirmed
[2024-12-11] MEDS: DOXYCYCLINE INJ 100 MG in SODIUM CHLORIDE 0.9% (POP) 100 ML IV ×2 (09:12→20:32)
[2024-12-11] MEDS: MICAFUNGIN SODIUM INJ 100 MG in SODIUM CHLORIDE 0.9% 100 ML IV (09:12)
[2024-12-11] MEDS: POTASSIUM CHL 20 mEq IVPB 20 MEQ/100 ML BAG 50 MEQ IV (09:13)
[2024-12-11] MEDS: LACTOBACILLUS RHAMNOSUS 1 CAP PO ×2 (09:20→20:33)
[2024-12-11] MEDS: MEGESTROL ACET SUSP 400 MG/10 ML UDC PO (09:20)
[2024-12-11] MEDS: VITAMIN B COMPLEX TABLET 1 TAB PO (09:21)
[2024-12-11] MEDS: CALCIUM CARBONATE 600 MG TABLET PO (09:21)
--- NOTE | 2024-12-11 09:40 | PD.RESPRO ---
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 Rutledge and Dr. Ugarte at [facility] presents to the emergency room with worsening fatigue and a feeling of heaviness in his chest for the past 4 days. His symptoms began after a chemotherapy session on November 22. He is accompanied by his brother, who is providing translation. The patient reports feeling more tired than usual since his last chemotherapy session. He has also had a cough and a subjective fever. He denies shortness of breath. He describes a feeling of heaviness in his chest. His brother notes that the patient's white blood cell count was low on both Friday and Friday before the chemotherapy was administered. The patient's brother reports that the patient was constipated after chemotherapy but has not had diarrhea. There are no sick contacts at home. Patient is not complaining of any chest pain or shortness of breath. 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 12/02/2024: patient seen and examined at bedside, he is shivering and reports feeling very cold. he continued to have fevers overnight to 104, he remains on reverse contact precautions. Cr 2.4 from 2.6, BUN 43 GFR 29. remains tachycardic to 120s and BP is normotensive 12/03/2024: Patient seen and examined at bedside patient is seen with cooling packs underneath and cold towel on forehead he was shivering and fan is on hand he remains febrile to 104. Hematuria noted from Zhao catheter his platelets are less than 5, primary team to give platelets. Creatinine 2.3 BUN 46 he remains tachycardic. 12/04/2024: Patient seen and examined at bedside patient fevers are notably better compared to yesterday Tmax of 103 however patient is currently afebrile, patient remains tachycardic he received 1 unit platelets yesterday platelets bumped to 17 today hematuria improved today in Zhao bag yellow clear, creatinine remains at 2.4, overall he appears clinically improved today compared to yesterday. CTAP with renal calculi noted in the right renal pelvis nonobstructive. continue IV fluids with half-normal saline. 12/07/2024: Labs reviewed and patient examined at the bedside. Patient currently afebrile. Cr 2.8 and Urine Output of 3750mL. Continue to monitor for renal improvement. BP: 129/85 12/08/2024: Patient afebrile, but remaining tachycardic. Patient continues with dry cough. Patient's urine looks clear yellow. BP 107/67 Cr:2.6 BUN:59, eGFR:27, Urine output:4175mL. Patient makes optimal amount of urine and creatine levels stable. Continue to monitor for renal improvement. Continue supportive care. 12/09/2024: Labs reviewed and patient examined at the bedside. Patient is afebrile. Patient complains of generalized weakness. Continues intermittent dry cough. BP 131/96 Cr:2.4 BUN:55, eGFR:29, Urine output:3.4L. Patient makes optimal amount of urine and creatine levels stable. Continue to monitor for renal improvement. Continue supportive care. Patient currently looks euvolemic. Recommend to lower or discontinue Lasix. 12/10/2024: Labs reviewed and patient examined at the bedside. Patient still complains of generalized weakness. BP:108/67, Cr: 2.5, BUN:52, eGFR:28, Urine Output: 3.9 Na:145. Sodium, Creatinine, and urine output in increasing trend, which are signs of dehydration. Hold Lasix for now. Increase PO fluid intake. 12/11/2024: Labs reviewed and patient examined at the bedside. Patient looked slightly confused and was having difficulty in engaging or interacting with providers. BP:119/80 Cr: 2.2, BUN:50, eGFR:33, Urine Output: 2.45L Na:147. Creatinine is stable but Sodium is in high. Recommends giving patient IVF of D5W 1L Maintenance dose OR increase fluid uptake. Continue to hold Lasix for now. Exam Vital Signs Temp Pulse Resp BP Pulse Ox O2 Del Method O2 Flow Rate 98.4 F 105 H 21 H 122/78 99 Nasal Cannula 3 12/11/24 08:00 12/11/24 08:00 12/11/24 08:00 12/11/24 08:00 12/11/24 08:00 12/11/24 08:00 12/11/24 08:00 Narrative Exam GENERAL: Awake but confused. Looks lethargic. HEENT: Head AT/ NC. Mucous membranes dry. NECK: Supple, no lymphadenopathy, CARDIOVASCULAR: Sinus tachycardia. Normal S1/S2, + murmur. No pitting edema of bilateral LEs. s/p removal of chemo port on right upper chest no drainage no dehiscence no pus intact RESPIRATORY: CTAB. No wheezing, rhonchi, crackles. tachypnic. GASTROINTESTINAL: Abdomen less tense, however it remains tympanic, distended, non tender no palpable masses. Bowel sounds present : Zhao catheter noted with clear yellow urine MUSCULOSKELETAL:? No cyanosis or edema, no visible joint swelling. NEUROLOGICAL: Cranial nerves II-XII grossly intact. SKIN: No obvious rashes, no jaundice, normal turgor. Objective Labs 12/12/24 05:04 12/12/24 05:04 Labs: Laboratory Results - last 24 hr 12/10/24 12/11/24 09:01 04:52 WBC 4.0 RBC 2.46 L Hgb 6.9 L* D Hct 21.2 L* D MCV 86 MCH 28.0 MCHC 32.5 RDW Std Deviation 73.0 H Plt Count 14 L* D Neut % (Auto) 66 Lymph % (Auto) 17 [place] % (Auto) 16 H Eos % (Auto) 0 Baso % (Auto) 1 Neut # (Auto) 2.6 Lymph # (Auto) 0.7 L [place] # (Auto) 0.6 Eos # (Auto) 0.0 Baso # (Auto) 0.0 Immature Gran # (Auto) 0.05 H Absolute Nucleated RBC 0.02 H Immature Gran % 1 H Nucleated RBC % 1 H Sodium 147 H Potassium 3.3 L Chloride 103 Carbon Dioxide 32.5 H Anion Gap 12 BUN 50 H Creatinine 2.2 H Estim Creat Clear Calc 32.2 L eGFR 33 L BUN/Creatinine Ratio 23 H Glucose 101 Calculated Osmolality 305 H Calcium 8.9 Corrected Calcium 9.5 Phosphorus 3.0 Magnesium 1.9 Total Bilirubin 1.1 AST 60 H ALT 28 Alkaline Phosphatase 198 H Total Protein 5.5 L Albumin 3.3 L Globulin 2.2 L Albumin/Globulin Ratio 1.5 Misc Test Result Platelets confirmed Blood Type A Positive Antibody Screen NEGATIVE Crossmatch See Detail Blood Bank Wristband ID Yes ABG Interpretation ABG results: 12/07/24 08:11 ABG pH 7.46 H ABG pCO2 36 ABG pO2 58 L* ABG HCO3 26 ABG O2 Saturation 92 ABG Base Excess 2 Quality Measures Quality Measures none (holding heparin for low platelets) Assessment & Plan Assessment Current Active Medications: Generic Name Dose Route Start Last Admin Trade Name Freq PRN Reason Stop Dose Admin Acetaminophen 650 mg 12/09/24 07:56 Acetaminophen 325 Mg Tablet PO 01/04/25 09:02 Q6HR PRN Fever > 99.9 Benzonatate 100 mg 11/30/24 10:46 12/08/24 00:58 Benzonatate 100 Mg Capsule PO 12/30/24 10:45 100 mg Q8HR PRN Administration COUGH Protocol Calcium Carbonate 600 mg 11/25/24 20:00 12/11/24 09:21 Calcium Carbonate 600 Mg Tablet PO 12/25/24 19:59 600 mg QDAY ARI Administration Furosemide 80 mg 12/07/24 18:00 12/09/24 17:34 Furosemide Inj 10 Mg/Ml 4ml Vial IVP 01/06/25 17:59 80 mg On Hold: 12/09/24 21:25 BIDD ARI Administration Micafungin Sodium 100 mg/ 100 mls @ 100 mls/hr 11/28/24 09:00 12/11/24 09:12 Sodium Chloride IV 12/13/24 08:59 100 mls/hr QDAY ARI Administration Doxycycline Hyclate 100 mg/ 100 mls @ 100 mls/hr 12/09/24 09:00 12/11/24 09:12 Sodium Chloride IV 12/16/24 08:59 100 mls/hr BID ARI Administration Levofloxacin/Dextrose 750 mg in 150 mls @ 100 mls/hr 12/09/24 17:15 12/09/24 17:34 Levaquin Ivpb IV 12/16/24 17:14 100 mls/hr Q48H ARI Administration Protocol Potassium Chloride 20 meq in 100 mls @ 50 mls/hr 12/11/24 08:24 12/11/24 09:13 Kcl Ivpb IV 12/11/24 10:23 50 mls/hr X1 ONE Administration Lactobacillus Rhamnosus 1 cap 12/09/24 09:00 12/11/24 09:20 Lactobacillus Rhamnosus 1 Cap PO 01/08/25 08:59 1 cap BID ARI Administration Megestrol Acetate 400 mg 12/06/24 11:15 12/11/24 09:20 Megestrol Acet Susp 400 Mg/10 Ml Udc PO 01/05/25 11:14 400 mg QDAY ARI Administration Midodrine 10 mg 12/05/24 09:15 12/11/24 05:26 Midodrine 5 Mg Tablet PO 01/04/25 09:14 Not Given TID ARI Mirtazapine 7.5 mg 12/05/24 21:00 12/10/24 20:20 Mirtazapine 15 Mg Tablet PO 01/04/25 20:59 7.5 mg HS ARI Administration Polyethylene Glycol 17 gm 11/26/24 07:16 Polyethylene Glycol 17 Gm Packet PO 12/25/24 18:29 QDAY PRN CONSTIPATION Protocol Vitamin B Complex/Vit C/Folic Acid 1 tab 12/06/24 09:00 12/11/24 09:21 Vitamin B Complex Tablet PO 01/05/25 08:59 1 tab QDAY ARI Administration Plan Mr. 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 Rutledge and Dr. Ugarte at [facility] presents to the emergency room with worsening fatigue and a feeling of heaviness in his chest admitted to ICU for neutropenic fever. Fevers are slightly improved today compared to yesterday clinically patient appears in less distress less shivering. Cr remains elevated, well above baseline. RAMSES Ddx: Consider pre vs intra vs post renal etiologies Dx - Daily CMP - renal US with small kidneys and cortical thinning, no hydronephrosis, no stones - UA 1+ protein, 3+ blood, ?amorphous crystals - Hematuria resolved Zhao bag with clear yellow urine - Nonobstructive renal calculi noted on CTAP, mild hydronephrosis noted - Currently, BP:119/80 Cr: 2.2, BUN:50, eGFR:33, Urine Output: 2.45L Na:147. Tx - Avoid nephrotoxic medications - strict i and o, patient has good urine output - Patient makes optimal amount of urine and creatine levels stable. Continue supportive care. - Creatinine is stable but Sodium is in high. Recommends giving patient IVF of D5W 1L Maintenance dose OR increase fluid uptake. Continue to hold Lasix for now. Neutropenic Fever of unkown origin-improving CAP Stage IV metastatic Small cell lung cancer Transaminitis hypoalbuminemia pancytopenia normocytic anemia hematuria likely 2/2-resolved thrombocytopenia (PLT <5) - management per primary team Assessment and plan discussed with my attending physician Dr. Keith Small (PGY-1)- Internal medicine resident Attending Provider Attestation/Addendum Patient seen and examined with resident physician Dr. Small. Note reviewed, agree with findings and recommendations. RAMSES seems to be more prerenal azotemia. Patient still remains very sick looking and extremely fatigued. Today he seems to be more alert and awake. Encourage p.o. fluids. Zhao catheter with good urine output. Will monitor closely. Off IV fluids. Currently on Lasix which can be held as clinically he looks euvolemic. Spoke to primary team Patient with a significant pancytopenia and is on reverse isolation. WBC better. Increase p.o. water intake versus a D5W.
[2024-12-11 10:46] LABS: Hematocrit 25.3 % (41.0-53.0)
[2024-12-11 10:52] LABS: Hemoglobin 8.4 g/dL (13.5-16.0)
--- NOTE | 2024-12-11 14:08 | ESPR_ITS ---
<Statement entered by Jael Downing MD - 12/16/24 07:14> I reviewed above note and agree with findings and plans. I have also personally examined the patient with medicine team and went over assessment and plan with medical team including internal corrosion specialist and resident physician. <Statement entered by Blaise Ponce MD - 12/11/24 17:06> No acute overnight events. Seen and examined at bedside and patient appears to be more alert compared to previous days. at bedside and updated on current plans. Ordered 1 unit PRBC and 1 unit platelets to be transfused today, and posttransfusion H&H showed hemoglobin improved from 6.9 to 8.4. Renal function improved with diuretic holiday will continue to hold. ----- Note reviewed and agree with care plan as documented. Please refer to the note below for further details. Plan discussed with attending physician Dr. Chang Ponce MD PGY-2 Internal Medicine Documentation for date of: 12/11/24 Subjective Subjective Interval history: Patient was seen and examined at bedside. No acute events took place overnight. Mentation is improved, he is more alert and conversant about his health. Reports no bodily pain. Per family at bedside, patient is tolerating diet and eats about 40% of his home made Mediterranean meals. Nurse pointed large ecchymosis on the Lt side of abdomen. Central line likely the source of fevers, will DC and get blood cultures. PICC line requested to continue antibiotics and IV Tx. Patient family to arrive from [place] in next 10 days. Family would like to hold off on any changes to code status at this time. Exam Vital Signs Temp Pulse Resp BP Pulse Ox O2 Del Method O2 Flow Rate 98.3 F 117 H 18 116/78 98 Nasal Cannula 3 12/11/24 14:04 12/11/24 14:07 12/11/24 14:04 12/11/24 14:07 12/11/24 14:04 12/11/24 12:00 12/11/24 14:04 Narrative Exam Constitutional Alert, oriented x1. On 3L via NC, sats 94-96% HEENT Vision grossly intact. Patent nares. Trachea midline. RT IJ catheter in place. Respiratory Chest normal on inspection, diffuse soft crackles on auscultation. Cardiovascular S1 and S2 audible, RRR. No murmurs or carotid bruit. No gross JVD. Abdominal Soft and BS + ; non tender to palpation in all quadrants. Large ecchymosis over the Lt abdominal wall. Genitourinary No bladder tenderness, no flank pain. Zhao in place, good UO. Musculoskeletal Extremities tone within normal limits. No LE edema. Neurological CN II - XII grossly intact. Extremity motor and sensation grossly intact. Skin Warm, dry and intact. Senile purpura. Psychiatric Patient has a good affect, is somewhat cooperative. Objective Labs 12/11/24 10:15 12/11/24 04:52 Labs: Laboratory Results - last 24 hr 12/10/24 12/11/24 12/11/24 09:01 04:52 10:15 WBC 4.0 RBC 2.46 L Hgb 6.9 L* D 8.4 L D Hct 21.2 L* D 25.3 L MCV 86 MCH 28.0 MCHC 32.5 RDW Std Deviation 73.0 H Plt Count 14 L* D Neut % (Auto) 66 Lymph % (Auto) 17 [place] % (Auto) 16 H Eos % (Auto) 0 Baso % (Auto) 1 Neut # (Auto) 2.6 Lymph # (Auto) 0.7 L [place] # (Auto) 0.6 Eos # (Auto) 0.0 Baso # (Auto) 0.0 Immature Gran # (Auto) 0.05 H Absolute Nucleated RBC 0.02 H Immature Gran % 1 H Nucleated RBC % 1 H Sodium 147 H Potassium 3.3 L Chloride 103 Carbon Dioxide 32.5 H Anion Gap 12 BUN 50 H Creatinine 2.2 H Estim Creat Clear Calc 32.2 L eGFR 33 L BUN/Creatinine Ratio 23 H Glucose 101 Calculated Osmolality 305 H Calcium 8.9 Corrected Calcium 9.5 Phosphorus 3.0 Magnesium 1.9 Total Bilirubin 1.1 AST 60 H ALT 28 Alkaline Phosphatase 198 H Total Protein 5.5 L Albumin 3.3 L Globulin 2.2 L Albumin/Globulin Ratio 1.5 Misc Test Result Platelets confirmed Blood Type A Positive Antibody Screen NEGATIVE Crossmatch See Detail Blood Bank Wristband ID Yes Blood Bank Comment PLATP Ready ABG Interpretation ABG results: 12/07/24 08:11 ABG pH 7.46 H ABG pCO2 36 ABG pO2 58 L* ABG HCO3 26 ABG O2 Saturation 92 ABG Base Excess 2 Quality Measures Quality Measures none (holding heparin for low platelets) Assessment & Plan Assessment Current Active Medications: Generic Name Dose Route Start Last Admin Trade Name Freq PRN Reason Stop Dose Admin Acetaminophen 650 mg 12/09/24 07:56 Acetaminophen 325 Mg Tablet PO 01/04/25 09:02 Q6HR PRN Fever > 99.9 Benzonatate 100 mg 11/30/24 10:46 12/08/24 00:58 Benzonatate 100 Mg Capsule PO 12/30/24 10:45 100 mg Q8HR PRN Administration COUGH Protocol Calcium Carbonate 600 mg 11/25/24 20:00 12/11/24 09:21 Calcium Carbonate 600 Mg Tablet PO 12/25/24 19:59 600 mg QDAY ARI Administration Furosemide 80 mg 12/07/24 18:00 12/09/24 17:34 Furosemide Inj 10 Mg/Ml 4ml Vial IVP 01/06/25 17:59 80 mg On Hold: 12/09/24 21:25 BIDD ARI Administration Micafungin Sodium 100 mg/ 100 mls @ 100 mls/hr 11/28/24 09:00 12/11/24 09:12 Sodium Chloride IV 12/13/24 08:59 100 mls/hr QDAY ARI Administration Doxycycline Hyclate 100 mg/ 100 mls @ 100 mls/hr 12/09/24 09:00 12/11/24 09:12 Sodium Chloride IV 12/16/24 08:59 100 mls/hr BID ARI Administration Levofloxacin/Dextrose 750 mg in 150 mls @ 100 mls/hr 12/09/24 17:15 12/09/24 17:34 Levaquin Ivpb IV 12/16/24 17:14 100 mls/hr Q48H ARI Administration Protocol Lactobacillus Rhamnosus 1 cap 12/09/24 09:00 12/11/24 09:20 Lactobacillus Rhamnosus 1 Cap PO 01/08/25 08:59 1 cap BID ARI Administration Megestrol Acetate 400 mg 12/06/24 11:15 12/11/24 09:20 Megestrol Acet Susp 400 Mg/10 Ml Udc PO 01/05/25 11:14 400 mg QDAY ARI Administration Midodrine 10 mg 12/05/24 09:15 12/11/24 14:07 Midodrine 5 Mg Tablet PO 01/04/25 09:14 Not Given TID ARI Mirtazapine 7.5 mg 12/05/24 21:00 12/10/24 20:20 Mirtazapine 15 Mg Tablet PO 01/04/25 20:59 7.5 mg HS ARI Administration Polyethylene Glycol 17 gm 11/26/24 07:16 Polyethylene Glycol 17 Gm Packet PO 12/25/24 18:29 QDAY PRN CONSTIPATION Protocol Vitamin B Complex/Vit C/Folic Acid 1 tab 12/06/24 09:00 12/11/24 09:21 Vitamin B Complex Tablet PO 01/05/25 08:59 1 tab QDAY ARI Administration Plan 64-year-old male with a history of 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 Admitted to ICU for management of septic shock; downgraded and found to have neutropenic fever, pancytopenia, s/p port-a-cath removal for potential source of infection; s/p central line. Sepsis Acute hypoxic respiratory failure - resolved Neutropenic fever Acute Thrombocytopenia, severe secondary to CAP vs HAP DDx: Most likely chemotherapy-induced myelosuppression vs bacterial pneumonia vs fungal vs atypical (immunocompromised) - Port-a-cath removed 11/30/2024 - On November 22 2024, was considering Empower trial for immunotherapy, and possible transfer to [place] for Terlatumab treatment - CT A/P 11/28/2023 showed numerous hepatic, left adrenal lesions, widespread bone mets - 3/4 SIRS criteria: HR 116 (>90), RR 18 (>20), WBC 3.5(<4) + organ dysfunction with Cr 2.5 >2 - Previously treated with zosyn, azithromycin, vancomycin - transfused Plt x2 over the last week. - Hemoglobin 10.6 after 1 unit of transfusion yesterday, trended down to 6.9 this morning and was given an additional unit by the overnight. Posttransfusion Hgb 8.4 (12/11) - Platelet 14 so gave an additional unit on 12/21. - Blood (12/09) and U ctx: Negative x2 Plan: - New double-lumen PICC line created by IR. - Will DC central line as possible nidus of infection.? - Continue IV Levaquin 750 mg (12/04 - - Continue IV Micafungin 100mg (11/28 - - Added IV Doxycycline 100mg BID (12/09 - - PRN Tylenol 650mg q6H PRN for fever >99.9 - Discontinued Filgrastim daily as ANC 1680 >1500 - PRN Midodrine 10 mg PO TID - Monitor vitals closely. Will continue symptomatic management at this time. Fluid overload, improving Congestive nephropathy in the setting of Stage IV Lung cancer with metastates - Diagnosed 2022 and started on chemotherapy and radiation therapy. Last dose November 22 2024. - CXR (12/07): b/l perihilar Lt basilar pneumonia and moderate vascular congestion - BUN 52/55, Cr 2.5/2.4, eGFR 28/29 - Patient was being diuresed with Lasix IV 80 mg twice daily until creatinine went up after having trended down while.? On 12/10 a diuresis holiday was implemented. Urine output on 12/09 was <3L.? - 12/11 Nephro: BP:119/80 Cr: 2.2/2.5, BUN:50/52, eGFR:33/28, Urine Output: 2.45L Na:147. Creatinine is stable but Sodium is in high.? - sodium 147 today and has been trending up as also mentioned by nephrology. Most likely to be secondary to dehydration from prolonged diuresis. Plan: - Nephrology on board, appreciate recommendations. - Sodium, Creatinine, and urine output in increasing trend, which are signs of dehydration. Hold Lasix for now. Increase PO fluid intake or IV D5W. - D5-W at IV 50 mL/h started on 96 PM. - Strict I/O monitoring - Continue albumin 25mg qD x1 PRN - Fluid intake restricted to 1200mL - Avoid nephrotoxic medications - Renal dose adjustments for all medications as indicated - Consulted Oncology Dr. Forrester, appreciate recs. And Radiation Oncology, Dr. Ugarte consulted, appreciate recs. Protein calorie malnutrition - Protein 5.6, Albumin 3.4 - significant muscle wasting - loss of subcutaneous fat - nutritional intake of <50% of recommended intake for > 2 weeks - bedridden or otherwise significantly reduced functional capacity Plan: - Consult to registered nurse fetal - Megesterol acetate PO 400mg QD - Will consider TPN after we diurese the patient to help improve his vascular pulmonary congestion Transaminitis, improving Most likely ischemic hepatitis secondary to prior septic shock. [id number] diagnosis is acute viral hepatitis, which has been ruled out by negative panel. Less likely is hepatic infiltration by metastases; CT shows lesions but no acute findings. Plan: - GI specialist Dr. Galan was consulted, appreciate recommendations - Follow-up in the acute hepatitis panel including viral marker, serial plasmin, autoimmune antibodies - Pending TERESSA and anti-mitochondrial Ab - Monitor for jaundice or worsening liver function. - Supportive care; avoid hepatotoxic medications. Will decrease the dose of acetaminophen to 500 mg every 6 hours with max dose of 2 g/day. New onset diabetes mellitus HbA1c 6.5%, no previous recorded A1c available. - Dietary and lifestyle modifications. - Target glucose 140-180 mg/dL. - Outpatient follow-up with PCP for further management. Hospital Management: Disposition: Tele, pending hospice placement Diet: cardiac with 1.2 L fluid restriction, ensure IV lines: PIV, right jugular vein central line GI Prophylaxis: Stopped Protonix 40mg qday DVT Prophylaxis: No chemical Px. CODE STATUS: Full Code This case was discussed with my attending physician, Dr. Downing, and senior resident, Dr Rosario Lockhart. Toni Vasquez, DO PGY I
[2024-12-11] MEDS: LEVOFLOXACIN/D5W 750MG IVPB 750 MG/150 ML BAG 100 MG IV (17:06)
[2024-12-11 17:23] LABS: Platelet Count 35 Thou/mm3 (140-440)
[2024-12-11] MEDS: DEXTROSE 5%-WATER 1,000 ML 50 ML IV (17:54)
[2024-12-11 18:09] LABS: Slide Review Platelets confirmed
--- NOTE | 2024-12-11 18:16 | ESPR_ITS ---
Documentation for date of: 12/11/24 Subjective Subjective Interval history: Although hemoglobin hematocrit dropped down to 6.9 and 21.2 requiring blood transfusion and hemoglobin is back up to 8.4 and 25.3 No signs of any active bleeding The drop in hemoglobin hematocrit is most likely ecchymosis of the abdomen Exam Vital Signs Temp Pulse Resp BP Pulse Ox O2 Del Method O2 Flow Rate 98.7 F 112 H 18 122/84 98 Nasal Cannula 3 12/11/24 15:41 12/11/24 16:00 12/11/24 15:41 12/11/24 15:41 12/11/24 15:41 12/11/24 12:00 12/11/24 15:41 Objective Labs 12/11/24 17:04 12/11/24 04:52 Labs: Laboratory Results - last 24 hr 12/10/24 12/11/24 12/11/24 09:01 04:52 10:15 WBC 4.0 RBC 2.46 L Hgb 6.9 L* D 8.4 L D Hct 21.2 L* D 25.3 L MCV 86 MCH 28.0 MCHC 32.5 RDW Std Deviation 73.0 H Plt Count 14 L* D Neut % (Auto) 66 Lymph % (Auto) 17 [place] % (Auto) 16 H Eos % (Auto) 0 Baso % (Auto) 1 Neut # (Auto) 2.6 Lymph # (Auto) 0.7 L [place] # (Auto) 0.6 Eos # (Auto) 0.0 Baso # (Auto) 0.0 Immature Gran # (Auto) 0.05 H Absolute Nucleated RBC 0.02 H Immature Gran % 1 H Nucleated RBC % 1 H Sodium 147 H Potassium 3.3 L Chloride 103 Carbon Dioxide 32.5 H Anion Gap 12 BUN 50 H Creatinine 2.2 H Estim Creat Clear Calc 32.2 L eGFR 33 L BUN/Creatinine Ratio 23 H Glucose 101 Calculated Osmolality 305 H Calcium 8.9 Corrected Calcium 9.5 Phosphorus 3.0 Magnesium 1.9 Total Bilirubin 1.1 AST 60 H ALT 28 Alkaline Phosphatase 198 H Total Protein 5.5 L Albumin 3.3 L Globulin 2.2 L Albumin/Globulin Ratio 1.5 Misc Test Result Platelets confirmed Blood Type A Positive Antibody Screen NEGATIVE Crossmatch See Detail Blood Bank Wristband ID Yes Blood Bank Comment PLATP Ready 12/11/24 17:04 WBC RBC Hgb Hct MCV MCH MCHC RDW Std Deviation Plt Count 35 L D Neut % (Auto) Lymph % (Auto) [place] % (Auto) Eos % (Auto) Baso % (Auto) Neut # (Auto) Lymph # (Auto) [place] # (Auto) Eos # (Auto) Baso # (Auto) Immature Gran # (Auto) Absolute Nucleated RBC Immature Gran % Nucleated RBC % Sodium Potassium Chloride Carbon Dioxide Anion Gap BUN Creatinine Estim Creat Clear Calc eGFR BUN/Creatinine Ratio Glucose Calculated Osmolality Calcium Corrected Calcium Phosphorus Magnesium Total Bilirubin AST ALT Alkaline Phosphatase Total Protein Albumin Globulin Albumin/Globulin Ratio Misc Test Result Platelets confirmed Blood Type Antibody Screen Crossmatch Blood Bank Wristband ID Blood Bank Comment Impressions Impression: Drop in hemoglobin hematocrit most likely due to ecchymosis of the left abdomen no signs of any active bleeding Continue to monitor CBC If it continues to drop might consider doing an upper endoscopy prior to discharge ABG Interpretation ABG results: 12/07/24 08:11 ABG pH 7.46 H ABG pCO2 36 ABG pO2 58 L* ABG HCO3 26 ABG O2 Saturation 92 ABG Base Excess 2 Assessment & Plan A&P Narrative A#1. Small cell CA of the lung initially limited now extensive prior chemoradiation now receiving additional chemo with Dr. Rutledge at the cancer treatment center A#2. Admitted with pancytopenia neutropenic fever receiving antibiotics micafungin filgrastim platelet transfusions. A#3. Abnormal LFTs Dr. Galan has seen patient and workup for chronic active hepatitis in progress. Time Spent With Patient Time: Total time spent is greater than 50% in coordination of care (as documented) at patient's floor/unit and/or counseling patient:
[2024-12-11] MEDS: MIRTAZAPINE 15 MG TABLET 7.5 MG PO (20:32)
[2024-12-12] VITALS (11 sets, daily range): BP systolic 120–128; BP diastolic 73–86; PULSE 71–114; RESP 17–24; TEMP 36.7–37.6; O2SAT 97–100; BMI 28.0
--- NOTE | 2024-12-12 05:00 | PC.NURSE ---
Blood noticed in urine. Hosptalist MD. Edwards was contacted and notified regarding finding. Per MD, will come to unit to assess patient. Patient shows no sign of distress. Patient also mentioned having no pain.
--- NOTE | 2024-12-12 05:25 | PC.NURSE ---
. Dr. Thomas arrived on unit to assess patient's catheter. Per , monitor catheter.
[2024-12-12 06:11] LABS: Basophils # (Auto) 0.0 Thou/mm3 (0.0-0.2); Basophils % (Auto) 1 % (0-2.5); Eosinophils # (Auto) 0.0 Thou/mm3 (0.0-0.5); Eosinophils % (Auto) 0 % (0-10); Hematocrit 23.3 % (41.0-53.0); Immature Granulocytes Auto 0.05 Thou/mm3 (0.00-0.00); Lymphocytes # (Auto) 0.8 Thou/mm3 (1.0-4.8); Lymphocytes % (Auto) 20 % (10-50); Mean Corpuscular HGB Conc 33.0 g/dl (31.0-37.0); Mean Corpuscular Hemoglobin 28.9 pg (25.0-35.0); Mean Corpuscular Volume 88 fL (80-100); Monocytes # (Auto) 0.8 Thou/mm3 (0.0-0.8); Monocytes % (Auto) 19 % (0-12); Neutrophils # (Auto) 2.4 Thou/mm3 (1.8-7.7); Neutrophils % (Auto) 60 % (37-80); Nucleated Red Blood Cell # 0.02 Thou/mm3 (0.00-0.00); Nucleated Red Blood Cell % 1 /100 WBC (0); RDW Standard Deviation 67.8 fL (35.1-43.9); Red Blood Count 2.66 Miln/mm3 (4.50-5.90); White Blood Count 4.1 Thou/mm3 (3.8-10.6)
[2024-12-12 06:18] LABS: Hemoglobin 7.7 g/dL (13.5-16.0)
[2024-12-12 06:19] LABS: Platelet Count 25 Thou/mm3 (140-440)
[2024-12-12 06:39] LABS: Alanine Aminotransferase 27 U/L (10-49); Albumin, Serum 3.3 gm/dL (3.4-4.8); Albumin/Globulin Ratio 1.4 (1.2-2.2); Alkaline Phosphatase 186 U/L (46-116); Anion Gap 12 (7-16); Aspartate Amino Transferase 55 U/L (0-34); BUN/Creatinine Ratio 24 Ratio (12-20); Bilirubin,Total 1.2 mg/dL (0.3-1.2); Blood Urea Nitrogen 40 mg/dL (9-23); Calcium 8.6 mg/dL (8.3-10.6); Calcium (Corrected) 9.2 mg/dL (8.5-10.1); Carbon Dioxide 31.1 mMol/L (20.0-31.0); Chloride 106 mMol/L (98-107); Creatinine (Component) 1.7 mg/dL (0.6-1.3); Estimated Creatinine Clearance 41.0 mL/min (>60); Globulin 2.4 gm/dL (2.3-3.5); Glucose 107 mg/dL (74-106); Magnesium 1.7 mg/dL (1.6-2.6); Osmolality,Calculated 305 (275-295); Phosphorous 2.4 mg/dL (2.4-5.1); Potassium 3.2 mMol/L (3.4-5.1); Sodium 149 mMol/L (136-145); Total Protein 5.7 gm/dL (5.7-8.2); eGFR 44 See Note
[2024-12-12 07:06] LABS: Slide Review Platelets confirmed
[2024-12-12] MEDS: MEGESTROL ACET SUSP 400 MG/10 ML UDC PO (08:53)
[2024-12-12] MEDS: CALCIUM CARBONATE 600 MG TABLET PO (08:53)
[2024-12-12] MEDS: DOXYCYCLINE INJ 100 MG in SODIUM CHLORIDE 0.9% (POP) 100 ML IV ×2 (08:53→20:39)
[2024-12-12] MEDS: LACTOBACILLUS RHAMNOSUS 1 CAP PO ×2 (08:54→20:40)
[2024-12-12] MEDS: VITAMIN B COMPLEX TABLET 1 TAB PO (08:54)
[2024-12-12] MEDS: POTASSIUM CHL 20 mEq IVPB 20 MEQ/100 ML BAG 50 MEQ IV ×2 (09:12→10:34)
[2024-12-12] MEDS: ALBUMIN HUMAN 25% IVPB 12.5 GM/50 ML BTL IV (09:12)
[2024-12-12] MEDS: Magnesium Sulfate 2 GM Ivpb 2 GM/50 ML BAG IV (09:13)
[2024-12-12] MEDS: MICAFUNGIN SODIUM INJ 100 MG in SODIUM CHLORIDE 0.9% 100 ML IV (09:55)
--- NOTE | 2024-12-12 10:25 | PC.SS ---
Follow up note: SS spoke to physician team who states they may discharge patient home today. They can obtain hospice at a later time. SS will provide a list of community resources to family that will include hospice agencies. Patient's insurance can cover gurney transport. SS will inquiry with family transportation arrangements.
--- NOTE | 2024-12-12 11:30 | PC.SS ---
Follow up note: SS met with patient's at bedside. confirmed they want to take patient home. They do not want to set up hospice now. They want to do this at a later time. SS explained process and provided a community resource list for her with all the contact numbers. SS asked if she would like me to order the wheelchair or walker for home. preferred the wheelchair ordered and set up for delivery at home. SS discussed transportation arrangements. states her son will provide transportation. D/c pending. SS will send DME order through [facility].
[2024-12-12] MEDS: GABAPENTIN 100 MG CAPSULE PO ×2 (11:33→20:40)
--- NOTE | 2024-12-12 13:38 | PC.SS ---
Addendum entered by SUKI Stanley 12/12/24 15:15: Rounding note: Patient will need oxygen when d/c. Original Note: REBAR BENDER attempted to meet with patient and patient at bedside, patient was completing ADL's and was unable to meet. REBAR BENDER placed phone call to decision maker Jorge to communicate resource list was left at bedside, Jorge stated that he received it and communicated with patients the resources available. Jorge inquired if patient could also have oxygen, REBAR BENDER will notify doctors of family request.
[2024-12-12] MEDS: DEXTROSE 5%-WATER 1,000 ML 50 ML IV (15:05)
--- NOTE | 2024-12-12 15:35 | ESPR_ITS ---
<Statement entered by Jael Downing MD - 12/16/24 14:17> I reviewed above note and agree with findings and plans. I have also personally examined the patient with medicine team and went over assessment and plan with medical team including international relations teacher and resident physician. <Statement entered by Ubaldo Landa MD - 12/13/24 08:02> Patient examined and case discussed with the team including attending physician. Note reviewed, I agree with the care plan as documented. Please refer to the note below for further details. - Ubaldo Landa MD, PGY 3 Disclaimer: The document may contain phonetic/typographic errors due to voice recognition software. These errors are purely due to imperfections in the software program. Documentation for date of: 12/12/24 Subjective Subjective Interval history: Patient was seen and examined at bedside. No acute events took place overnight. Discomfort and agitation noted to be related to underlying anxiety. started gabapentin in addition to current mirtazapine. Mentation is improved, he is more alert and conversant about his health. Reports no bodily pain. Per family at bedside, patient is tolerating diet and eats about 40% of his home made Mediterranean meals. Nurse pointed large ecchymosis on the Lt side of abdomen to be an impact of the telemetry device on the abdomen, improving. Central line likely the source of fevers, will DC and get blood cultures. PICC line requested to continue antibiotics and IV Tx. Patient family to arrive from [place] in next 10 days. Family would like to hold off on any changes to code status at this time. Anticipate discharge within the next 24 -48h. Will need removal of the PICC line prior to discharge. Exam Vital Signs Temp Pulse Resp BP Pulse Ox O2 Del Method O2 Flow Rate 98.1 F 71 24 H 120/86 H 97 Nasal Cannula 2 12/12/24 12:00 12/12/24 12:00 12/12/24 12:00 12/12/24 14:55 12/12/24 12:12/12/24 12:12/12/24 12:00 Narrative Exam Constitutional Alert, oriented x1. On 3L via NC, sats 94-96% HEENT Vision grossly intact. Patent nares. Trachea midline. RT IJ catheter in place. Respiratory Chest normal on inspection, diffuse soft crackles on auscultation. Cardiovascular S1 and S2 audible, RRR. No murmurs or carotid bruit. No gross JVD. Abdominal Soft and BS + ; non tender to palpation in all quadrants. Large ecchymosis over the Lt abdominal wall. Genitourinary No bladder tenderness, no flank pain. Zhao in place, good UO. Musculoskeletal Extremities tone within normal limits. No LE edema. Neurological CN II - XII grossly intact. Extremity motor and sensation grossly intact. Skin Warm, dry and intact. Senile purpura. Psychiatric Patient has a good affect, is somewhat cooperative. Objective Labs 12/12/24 05:04 12/12/24 05:04 Labs: Laboratory Results - last 24 hr 12/11/24 12/12/24 17:04 05:04 WBC 4.1 RBC 2.66 L Hgb 7.7 L Hct 23.3 L MCV 88 MCH 28.9 MCHC 33.0 RDW Std Deviation 67.8 H Plt Count 35 L D 25 L* D Neut % (Auto) 60 Lymph % (Auto) 20 [place] % (Auto) 19 H Eos % (Auto) 0 Baso % (Auto) 1 Neut # (Auto) 2.4 Lymph # (Auto) 0.8 L [place] # (Auto) 0.8 Eos # (Auto) 0.0 Baso # (Auto) 0.0 Immature Gran # (Auto) 0.05 H Absolute Nucleated RBC 0.02 H Immature Gran % 1 H Nucleated RBC % 1 H Sodium 149 H Potassium 3.2 L Chloride 106 Carbon Dioxide 31.1 H Anion Gap 12 BUN 40 H Creatinine 1.7 H D Estim Creat Clear Calc 41.0 L eGFR 44 L BUN/Creatinine Ratio 24 H Glucose 107 H Calculated Osmolality 305 H Calcium 8.6 Corrected Calcium 9.2 Phosphorus 2.4 Magnesium 1.7 Total Bilirubin 1.2 AST 55 H ALT 27 Alkaline Phosphatase 186 H Total Protein 5.7 Albumin 3.3 L Globulin 2.4 Albumin/Globulin Ratio 1.4 Misc Test Result Platelets confirmed Platelets confirmed ABG Interpretation ABG results: 12/07/24 08:11 ABG pH 7.46 H ABG pCO2 36 ABG pO2 58 L* ABG HCO3 26 ABG O2 Saturation 92 ABG Base Excess 2 Quality Measures Quality Measures none (holding heparin for low platelets) Assessment & Plan Assessment Current Active Medications: Generic Name Dose Route Start Last Admin Trade Name Freq PRN Reason Stop Dose Admin Acetaminophen 650 mg 12/09/24 07:56 Acetaminophen 325 Mg Tablet PO 01/04/25 09:02 Q6HR PRN Fever > 99.9 Benzonatate 100 mg 11/30/24 10:46 12/08/24 00:58 Benzonatate 100 Mg Capsule PO 12/30/24 10:45 100 mg Q8HR PRN Administration COUGH Protocol Calcium Carbonate 600 mg 11/25/24 20:00 12/12/24 08:53 Calcium Carbonate 600 Mg Tablet PO 12/25/24 19:59 600 mg QDAY ARI Administration Furosemide 80 mg 12/07/24 18:00 12/09/24 17:34 Furosemide Inj 10 Mg/Ml 4ml Vial IVP 01/06/25 17:59 80 mg On Hold: 12/09/24 21:25 BIDD ARI Administration Gabapentin 100 mg 12/12/24 11:00 12/12/24 11:33 Gabapentin 100 Mg Capsule PO 01/11/25 10:59 100 mg BID ARI Administration Micafungin Sodium 100 mg/ 100 mls @ 100 mls/hr 11/28/24 09:00 12/12/24 09:55 Sodium Chloride IV 12/13/24 08:59 100 mls/hr QDAY ARI Administration Doxycycline Hyclate 100 mg/ 100 mls @ 100 mls/hr 12/09/24 09:00 12/12/24 08:53 Sodium Chloride IV 12/16/24 08:59 100 mls/hr BID ARI Administration Levofloxacin/Dextrose 750 mg in 150 mls @ 100 mls/hr 12/09/24 17:15 12/11/24 17:06 Levaquin Ivpb IV 12/16/24 17:14 100 mls/hr Q48H ARI Administration Protocol Dextrose 1,000 mls @ 50 mls/hr 12/11/24 17:45 12/12/24 15:05 D5w IV 01/10/25 17:44 50 mls/hr .Q20H ARI Administration Lactobacillus Rhamnosus 1 cap 12/09/24 09:00 12/12/24 08:54 Lactobacillus Rhamnosus 1 Cap PO 01/08/25 08:59 1 cap BID ARI Administration Megestrol Acetate 400 mg 12/06/24 11:15 12/12/24 08:53 Megestrol Acet Susp 400 Mg/10 Ml Udc PO 01/05/25 11:14 400 mg QDAY ARI Administration Midodrine 10 mg 12/05/24 09:15 12/12/24 14:55 Midodrine 5 Mg Tablet PO 01/04/25 09:14 Not Given TID ARI Mirtazapine 7.5 mg 12/05/24 21:00 12/11/24 20:32 Mirtazapine 15 Mg Tablet PO 01/04/25 20:59 7.5 mg HS ARI Administration Polyethylene Glycol 17 gm 11/26/24 07:16 Polyethylene Glycol 17 Gm Packet PO 12/25/24 18:29 QDAY PRN CONSTIPATION Protocol Vitamin B Complex/Vit C/Folic Acid 1 tab 12/06/24 09:00 12/12/24 08:54 Vitamin B Complex Tablet PO 01/05/25 08:59 1 tab QDAY ARI Administration Plan 64-year-old male with a history of 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 Admitted to ICU for management of septic shock; downgraded and found to have neutropenic fever, pancytopenia, s/p port-a-cath removal for potential source of infection; s/p central line. Sepsis Acute hypoxic respiratory failure - resolved Neutropenic fever Acute Thrombocytopenia, severe secondary to CAP vs HAP DDx: Most likely chemotherapy-induced myelosuppression vs bacterial pneumonia vs fungal vs atypical (immunocompromised) - Port-a-cath removed 11/30/2024 - On November 22 2024, was considering [facility] trial for immunotherapy, and possible transfer to [facility] for Terlatumab treatment - CT A/P 11/28/2023 showed numerous hepatic, left adrenal lesions, widespread bone mets - 3/4 SIRS criteria: HR 116 (>90), RR 18 (>20), WBC 3.5(<4) + organ dysfunction with Cr 2.5 >2 - Previously treated with zosyn, azithromycin, vancomycin - transfused Plt x2 over the last week. - Hemoglobin 10.6 after 1 unit of transfusion yesterday, trended down to 6.9 this morning and was given an additional unit by the overnight. Posttransfusion Hgb 8.4 (12/11) - Platelet 14 so gave an additional unit on 12/21. - Blood (12/09) and U ctx: Negative x2 Plan: - New double-lumen PICC line created by IR. - Will DC central line as possible nidus of infection.? - Continue IV Levaquin 750 mg (12/04 - - Continue IV Micafungin 100mg (11/28 - - Added IV Doxycycline 100mg BID (12/09 - - PRN Tylenol 650mg q6H PRN for fever >99.9 - Discontinued Filgrastim daily as ANC 1680 >1500 - PRN Midodrine 10 mg PO TID - Monitor vitals closely. Will continue symptomatic management at this time. - Referral to physical therapy Fluid overload, improving Congestive nephropathy in the setting of Stage IV Lung cancer with metastates - Diagnosed 2022 and started on chemotherapy and radiation therapy. Last dose November 22 2024. - CXR (12/07): b/l perihilar Lt basilar pneumonia and moderate vascular congestion - BUN 52/55, Cr 2.5/2.4, eGFR 28/29 - Patient was being diuresed with Lasix IV 80 mg twice daily until creatinine went up after having trended down while.? On 12/10 a diuresis holiday was implemented. Urine output on 12/09 was <3L.? - 12/11 Nephro: BP:119/80 Cr: 2.2/2.5, BUN:50/52, eGFR:33/28, Urine Output: 2.45L Na:147. Creatinine is stable but Sodium is in high.? - sodium 147 today and has been trending up as also mentioned by nephrology. Most likely to be secondary to dehydration from prolonged diuresis. Plan: - Nephrology on board, appreciate recommendations. - Sodium, Creatinine, and urine output in increasing trend, which are signs of dehydration. Hold Lasix for now. Increase PO fluid intake or IV D5W. - D5-W at IV 100 mL/h (12/12 - ) - Strict I/O monitoring - Continue albumin 25mg qD x1 PRN - Fluid intake restricted to 1200mL - Avoid nephrotoxic medications - Renal dose adjustments for all medications as indicated - Consulted Oncology Dr. Forrester, appreciate recs. And Radiation Oncology, Dr. Ugarte consulted, appreciate recs. Protein calorie malnutrition, improving - Protein 5.7, Albumin 3.3 - significant muscle wasting - loss of subcutaneous fat - nutritional intake of <50% of recommended intake for > 2 weeks - bedridden or otherwise significantly reduced functional capacity Plan: - Consult to registered nurse obstetrics - Megesterol acetate PO 400mg QD - Will consider TPN after we diurese the patient to help improve his vascular pulmonary congestion Transaminitis, improving Most likely ischemic hepatitis secondary to prior septic shock. [id number] diagnosis is acute viral hepatitis, which has been ruled out by negative panel. Less likely is hepatic infiltration by metastases; CT shows lesions but no acute findings. Plan: - GI specialist Dr. Galan was consulted, appreciate recommendations - Follow-up in the acute hepatitis panel including viral marker, serial plasmin, autoimmune antibodies - Pending TERESSA and anti-mitochondrial Ab - Monitor for jaundice or worsening liver function. - Supportive care; avoid hepatotoxic medications. Will decrease the dose of acetaminophen to 500 mg every 6 hours with max dose of 2 g/day. New onset diabetes mellitus HbA1c 6.5%, no previous recorded A1c available. - Dietary and lifestyle modifications. - Target glucose 140-180 mg/dL. - Outpatient follow-up with PCP for further management. Hospital Management: Disposition: Tele, pending hospice placement Diet: cardiac with 1.2 L fluid restriction, ensure IV lines: PIV, right IJ, central line (PICC) GI Prophylaxis: Stopped Protonix 40mg qday DVT Prophylaxis: No chemical Px. CODE STATUS: Full Code This case was discussed with my attending physician, Dr. Downing, and senior resident, Dr Rosario Lockhart. Toni Vasquez, DO PGY I
--- NOTE | 2024-12-12 16:30 | ESPR_ITS ---
Documentation for date of: 12/12/24 Subjective Subjective Interval history: Informant-brother, Mr Kayla is a 63 yo gentleman with a hx of 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 Rutledge and Dr. Ugarte at [facility] presents to the emergency room with worsening fatigue and a feeling of heaviness in his chest for the past 4 days. His symptoms began after a chemotherapy session on November 22. He is accompanied by his brother, who is providing translation. The patient reports feeling more tired than usual since his last chemotherapy session. He has also had a cough and a subjective fever. He denies shortness of breath. He describes a feeling of heaviness in his chest. His brother notes that the patient's white blood cell count was low on both Friday and Friday before the chemotherapy was administered. The patient's brother reports that the patient was constipated after chemotherapy but has not had diarrhea. There are no sick contacts at home. Patient is not complaining of any chest pain or shortness of breath. 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 Notable labs include pancytopenia and a mild metabolic acidosis with a bicarbonate of 18.2. Kidney function is significantly impaired, as shown by a creatinine of 2.0. Liver enzymes are elevated with an AST of 506 and ALT of 555, and the alkaline phosphatase is 175. The procalcitonin is markedly elevated at 10.7. CXR confirms pneumonia. EKG shows sinus tachycardia, along with nonspecific T-wave changes. Later on the patient's condition worsened, becoming hypotensive with a blood pressure of 80/49. A second liter of IV fluids was ordered, and Levophed was initiated to support blood pressure. Once blood pressures improved-he was moved to telemetry. Creatinine started to trend up-nephrology consultation was requested for RAMSES. Patient currently seen in telemetry-in respiratory isolation room. COVID-negative. Patient admitted to hospital for septic shock management in the setting of neutropenic fever. 12/12/2024 patient currently seen in medical floor. In reverse isolation. still sick looking. Very fragile and weak. Creatinine improving. Patient still making urine. Minimal hematuria noted. Platelets 25,000. at bedside. She wants him to go home with home physical therapy. Declined rehab. Sodium 149-added 1 L D5W. Hold Lasix. Clinically looks euvolemic. Review of Systems Review of Systems Narrative Review of Systems: Denies any chest pain, shortness of breath. Cough is better. Extreme fatigue. Denies any nausea, vomiting. Decreased appetite. Exam Vital Signs Temp Pulse Resp BP Pulse Ox O2 Del Method O2 Flow Rate 36.7 C 71 24 H 120/86 H 97 Nasal Cannula 2 12/12/24 12:00 12/12/24 12:00 12/12/24 12:00 12/12/24 14:55 12/12/24 12:12/12/24 12:00 12/12/24 12:00 Narrative Exam GENERAL: Awake although goes back to sleep quickly. HEENT: Head AT/ NC. Mucous membranes dry. NECK: Supple, no lymphadenopathy, CARDIOVASCULAR: Sinus tachycardia. Normal S1/S2, + murmur. No pitting edema of bilateral LEs. s/p removal of chemo port on right upper chest no drainage no dehiscence no pus intact RESPIRATORY: CTAB. No wheezing, rhonchi, crackles. tachypnic. GASTROINTESTINAL: Abdomen less tense, however it remains tympanic, distended, non tender no palpable masses. Bowel sounds present : Zhao catheter noted with mild pink urine MUSCULOSKELETAL:? No cyanosis or edema, no visible joint swelling. NEUROLOGICAL: Alert and awake SKIN: No obvious rashes, no jaundice, normal turgor. Objective Labs 12/12/24 05:04 12/12/24 05:04 Labs: Laboratory Results - last 24 hr 12/11/24 12/12/24 17:04 05:04 WBC 4.1 RBC 2.66 L Hgb 7.7 L Hct 23.3 L MCV 88 MCH 28.9 MCHC 33.0 RDW Std Deviation 67.8 H Plt Count 35 L D 25 L* D Neut % (Auto) 60 Lymph % (Auto) 20 [place] % (Auto) 19 H Eos % (Auto) 0 Baso % (Auto) 1 Neut # (Auto) 2.4 Lymph # (Auto) 0.8 L [place] # (Auto) 0.8 Eos # (Auto) 0.0 Baso # (Auto) 0.0 Immature Gran # (Auto) 0.05 H Absolute Nucleated RBC 0.02 H Immature Gran % 1 H Nucleated RBC % 1 H Sodium 149 H Potassium 3.2 L Chloride 106 Carbon Dioxide 31.1 H Anion Gap 12 BUN 40 H Creatinine 1.7 H D Estim Creat Clear Calc 41.0 L eGFR 44 L BUN/Creatinine Ratio 24 H Glucose 107 H Calculated Osmolality 305 H Calcium 8.6 Corrected Calcium 9.2 Phosphorus 2.4 Magnesium 1.7 Total Bilirubin 1.2 AST 55 H ALT 27 Alkaline Phosphatase 186 H Total Protein 5.7 Albumin 3.3 L Globulin 2.4 Albumin/Globulin Ratio 1.4 Misc Test Result Platelets confirmed Platelets confirmed ABG Interpretation ABG results: 12/07/24 08:11 ABG pH 7.46 H ABG pCO2 36 ABG pO2 58 L* ABG HCO3 26 ABG O2 Saturation 92 ABG Base Excess 2 Assessment & Plan Assessment and plan (1) RAMSES (acute kidney injury): Status: Acute Assessment and plan: RAMSES most likely related to prerenal azotemia with fluctuations in the blood pressures. Noted good urine output via Zhao catheter. Patient has hypernatremia-1 L D5W given. Decreased p.o. intake. Labs/medications reviewed. (2) Septic shock: Status: Acute Assessment and plan: Septic shock seems to have resolved. White count improving. (3) Neutropenic fever: Status: Acute Assessment and plan: resolved. (4) Elevated LFTs: Status: Acute Assessment and plan: Probably from chemotherapy (5) Pneumonia: Status: Acute Assessment and plan: On broad-spectrum antibiotics (6) Pancytopenia: Status: Acute Assessment and plan: Probably from the recent chemotherapy. Improving Additional Assessment & Plan Additional Plan: Care discussed with nurse,
[2024-12-12] MEDS: DEXTROSE 5%-WATER 1,000 ML 100 ML IV (16:49)
--- NOTE | 2024-12-12 20:11 | PD.IMPROG ---
Documentation for date of: 12/12/24 Subjective Subjective Interval history: Downward trending hemoglobin hematocrit at 7.7 and 23.3 No signs of active bleeding Exam Vital Signs Temp Pulse Resp BP Pulse Ox O2 Del Method O2 Flow Rate 99.7 F 110 H 22 H 121/75 97 Nasal Cannula 3 12/12/24 16:00 12/12/24 19:41 12/12/24 19:41 12/12/24 16:00 12/12/24 19:41 12/12/24 16:00 12/12/24 19:41 Objective Labs 12/12/24 05:04 12/12/24 05:04 Labs: Laboratory Results - last 24 hr 12/12/24 05:04 WBC 4.1 RBC 2.66 L Hgb 7.7 L Hct 23.3 L MCV 88 MCH 28.9 MCHC 33.0 RDW Std Deviation 67.8 H Plt Count 25 L* D Neut % (Auto) 60 Lymph % (Auto) 20 [place] % (Auto) 19 H Eos % (Auto) 0 Baso % (Auto) 1 Neut # (Auto) 2.4 Lymph # (Auto) 0.8 L [place] # (Auto) 0.8 Eos # (Auto) 0.0 Baso # (Auto) 0.0 Immature Gran # (Auto) 0.05 H Absolute Nucleated RBC 0.02 H Immature Gran % 1 H Nucleated RBC % 1 H Sodium 149 H Potassium 3.2 L Chloride 106 Carbon Dioxide 31.1 H Anion Gap 12 BUN 40 H Creatinine 1.7 H D Estim Creat Clear Calc 41.0 L eGFR 44 L BUN/Creatinine Ratio 24 H Glucose 107 H Calculated Osmolality 305 H Calcium 8.6 Corrected Calcium 9.2 Phosphorus 2.4 Magnesium 1.7 Total Bilirubin 1.2 AST 55 H ALT 27 Alkaline Phosphatase 186 H Total Protein 5.7 Albumin 3.3 L Globulin 2.4 Albumin/Globulin Ratio 1.4 Misc Test Result Platelets confirmed Impressions Impression: Metastatic lung carcinoma Anemia blood loss most likely due to ecchymosis no signs of any active GI bleed Abnormal LFTs Continue current management ABG Interpretation ABG results: 12/07/24 08:11 ABG pH 7.46 H ABG pCO2 36 ABG pO2 58 L* ABG HCO3 26 ABG O2 Saturation 92 ABG Base Excess 2 Assessment & Plan A&P Narrative A#1. Small cell CA of the lung initially limited now extensive prior chemoradiation now receiving additional chemo with Dr. Rutledge at the cancer treatment center A#2. Admitted with pancytopenia neutropenic fever receiving antibiotics micafungin filgrastim platelet transfusions. A#3. Abnormal LFTs Dr. Galan has seen patient and workup for chronic active hepatitis in progress. Time Spent With Patient Time: Total time spent is greater than 50% in coordination of care (as documented) at patient's floor/unit and/or counseling patient:
[2024-12-12] MEDS: MIRTAZAPINE 15 MG TABLET 7.5 MG PO (20:40)
[2024-12-13] VITALS (12 sets, daily range): BP systolic 109–133; BP diastolic 72–94; PULSE 16–116; RESP 18–32; TEMP 36.4–37.2; O2SAT 95–100; BMI 32.8; BMI 13.0
[2024-12-13] MEDS: DEXTROSE 5%-WATER 1,000 ML 100 ML IV (02:12)
[2024-12-13 05:47] LABS: Basophils # (Auto) 0.0 Thou/mm3 (0.0-0.2); Basophils % (Auto) 0 % (0-2.5); Eosinophils # (Auto) 0.0 Thou/mm3 (0.0-0.5); Eosinophils % (Auto) 0 % (0-10); Hematocrit 22.5 % (41.0-53.0); Immature Granulocytes Auto 0.04 Thou/mm3 (0.00-0.00); Lymphocytes # (Auto) 1.0 Thou/mm3 (1.0-4.8); Lymphocytes % (Auto) 25 % (10-50); Mean Corpuscular HGB Conc 33.8 g/dl (31.0-37.0); Mean Corpuscular Hemoglobin 29.5 pg (25.0-35.0); Mean Corpuscular Volume 87 fL (80-100); Monocytes # (Auto) 0.8 Thou/mm3 (0.0-0.8); Monocytes % (Auto) 19 % (0-12); Neutrophils # (Auto) 2.2 Thou/mm3 (1.8-7.7); Neutrophils % (Auto) 55 % (37-80); Nucleated Red Blood Cell # 0.02 Thou/mm3 (0.00-0.00); Nucleated Red Blood Cell % 1 /100 WBC (0); RDW Standard Deviation 69.0 fL (35.1-43.9); Red Blood Count 2.58 Miln/mm3 (4.50-5.90); White Blood Count 4.1 Thou/mm3 (3.8-10.6)
[2024-12-13 06:11] LABS: Alanine Aminotransferase 26 U/L (10-49); Albumin, Serum 3.0 gm/dL (3.4-4.8); Albumin/Globulin Ratio 1.5 (1.2-2.2); Alkaline Phosphatase 176 U/L (46-116); Anion Gap 12 (7-16); Aspartate Amino Transferase 31 U/L (0-34); BUN/Creatinine Ratio 21 Ratio (12-20); Bilirubin,Total 1.1 mg/dL (0.3-1.2); Blood Urea Nitrogen 31 mg/dL (9-23); Calcium 8.2 mg/dL (8.3-10.6); Calcium (Corrected) 9.0 mg/dL (8.5-10.1); Carbon Dioxide 28.5 mMol/L (20.0-31.0); Chloride 106 mMol/L (98-107); Creatinine (Component) 1.5 mg/dL (0.6-1.3); Estimated Creatinine Clearance 45.7 mL/min (>60); Globulin 2.0 gm/dL (2.3-3.5); Glucose 107 mg/dL (74-106); Magnesium 1.8 mg/dL (1.6-2.6); Osmolality,Calculated 297 (275-295); Phosphorous 2.4 mg/dL (2.4-5.1); Potassium 3.1 mMol/L (3.4-5.1); Sodium 146 mMol/L (136-145); Total Protein 5.0 gm/dL (5.7-8.2); eGFR 52 See Note
[2024-12-13 06:18] LABS: Hemoglobin 7.6 g/dL (13.5-16.0)
[2024-12-13 06:19] LABS: Platelet Count 16 Thou/mm3 (140-440)
[2024-12-13 07:30] LABS: Slide Review Platelets confirmed
[2024-12-13] MEDS: LACTOBACILLUS RHAMNOSUS 1 CAP PO ×2 (08:27→21:50)
[2024-12-13] MEDS: MEGESTROL ACET SUSP 400 MG/10 ML UDC PO (08:27)
[2024-12-13] MEDS: GABAPENTIN 100 MG CAPSULE PO ×2 (08:28→21:52)
[2024-12-13] MEDS: DOXYCYCLINE INJ 100 MG in SODIUM CHLORIDE 0.9% (POP) 100 ML IV ×2 (08:28→21:42)
[2024-12-13] MEDS: CALCIUM CARBONATE 600 MG TABLET PO (08:28)
[2024-12-13] MEDS: VITAMIN B COMPLEX TABLET 1 TAB PO (08:28)
--- NOTE | 2024-12-13 08:39 | EKG_ITS ---
[facility] Test Date: 2024-12-13 Pat Name: JUD MAYA [facility] Gender[facility] Male [employer]: LUCERO : 1960 Requested By: Toni Vasquez Order Number: [id number] Reading MD: Toni Vasquez Measurements Intervals [place] Rate: 113 P: 39 IN: 151 QRS: 35 QRSD: 104 T: 53 QT: 343 QTc: 471 Interpretive Statements SINUS TACHYCARDIA LOW QRS VOLTAGE IN PRECORDIAL LEADS ABNORMAL RHYTHM ECG Compared to ECG 11/25/2024 11:20:32 No significant changes /store/S0/[id number].pdf
[2024-12-13 09:04] LABS: ANA Screen, IFA NEGATIVE (NEGATIVE); Alpha-1-Antitrypsin* 253 mg/dL (83-199); Ceruloplasmin* 38 mg/dL (14-30); Mitochondrial Ab NEGATIVE (NEGATIVE)
--- NOTE | 2024-12-13 09:04 | ESPR_ITS ---
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 Rutledge and Dr. Ugarte at [facility] presents to the emergency room with worsening fatigue and a feeling of heaviness in his chest for the past 4 days. His symptoms began after a chemotherapy session on November 22. He is accompanied by his brother, who is providing translation. The patient reports feeling more tired than usual since his last chemotherapy session. He has also had a cough and a subjective fever. He denies shortness of breath. He describes a feeling of heaviness in his chest. His brother notes that the patient's white blood cell count was low on both Friday and Friday before the chemotherapy was administered. The patient's brother reports that the patient was constipated after chemotherapy but has not had diarrhea. There are no sick contacts at home. Patient is not complaining of any chest pain or shortness of breath. 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 12/02/2024: patient seen and examined at bedside, he is shivering and reports feeling very cold. he continued to have fevers overnight to 104, he remains on reverse contact precautions. Cr 2.4 from 2.6, BUN 43 GFR 29. remains tachycardic to 120s and BP is normotensive 12/03/2024: Patient seen and examined at bedside patient is seen with cooling packs underneath and cold towel on forehead he was shivering and fan is on hand he remains febrile to 104. Hematuria noted from Zhao catheter his platelets are less than 5, primary team to give platelets. Creatinine 2.3 BUN 46 he remains tachycardic. 12/04/2024: Patient seen and examined at bedside patient fevers are notably better compared to yesterday Tmax of 103 however patient is currently afebrile, patient remains tachycardic he received 1 unit platelets yesterday platelets bumped to 17 today hematuria improved today in Zhao bag yellow clear, creatinine remains at 2.4, overall he appears clinically improved today compared to yesterday. CTAP with renal calculi noted in the right renal pelvis nonobstructive. continue IV fluids with half-normal saline. 12/07/2024: Labs reviewed and patient examined at the bedside. Patient currently afebrile. Cr 2.8 and Urine Output of 3750mL. Continue to monitor for renal improvement. BP: 129/85 12/08/2024: Patient afebrile, but remaining tachycardic. Patient continues with dry cough. Patient's urine looks clear yellow. BP 107/67 Cr:2.6 BUN:59, eGFR:27, Urine output:4175mL. Patient makes optimal amount of urine and creatine levels stable. Continue to monitor for renal improvement. Continue supportive care. 12/09/2024: Labs reviewed and patient examined at the bedside. Patient is afebrile. Patient complains of generalized weakness. Continues intermittent dry cough. BP 131/96 Cr:2.4 BUN:55, eGFR:29, Urine output:3.4L. Patient makes optimal amount of urine and creatine levels stable. Continue to monitor for renal improvement. Continue supportive care. Patient currently looks euvolemic. Recommend to lower or discontinue Lasix. 12/10/2024: Labs reviewed and patient examined at the bedside. Patient still complains of generalized weakness. BP:108/67, Cr: 2.5, BUN:52, eGFR:28, Urine Output: 3.9 Na:145. Sodium, Creatinine, and urine output in increasing trend, which are signs of dehydration. Hold Lasix for now. Increase PO fluid intake. 12/11/2024: Labs reviewed and patient examined at the bedside. Patient looked slightly confused and was having difficulty in engaging or interacting with providers. BP:119/80 Cr: 2.2, BUN:50, eGFR:33, Urine Output: 2.45L Na:147. Creatinine is stable but Sodium is in high. Recommends giving patient IVF of D5W 1L Maintenance dose OR increase fluid uptake. Continue to hold Lasix for now. 12/12/2024 patient currently seen in medical floor. In reverse isolation. still sick looking. Very fragile and weak. Creatinine improving. Patient still making urine. Minimal hematuria noted. Platelets 25,000. at bedside. She wants him to go home with home physical therapy. Declined rehab. Sodium 149-added 1 L D5W. Hold Lasix. Clinically looks euvolemic. 12/13/2024: Labs reviewed and patient examined at the bedside. Cr: 1.5, BUN:31, eGFR: 52 Urine Output: 1.9L, Na: 146, Added additional 1L of D5W with 70ml/hr. Continue to hold Lasix. Exam Vital Signs Temp Pulse Resp BP Pulse Ox O2 Del Method O2 Flow Rate 98.9 F 16 L 32 H 109/72 96 Nasal Cannula 2 12/13/24 08:00 12/13/24 08:00 12/13/24 08:00 12/13/24 08:00 12/13/24 08:00 12/13/24 08:00 12/13/24 08:00 Narrative Exam GENERAL: Awake but confused. Looks lethargic. HEENT: Head AT/ NC. Mucous membranes dry. NECK: Supple, no lymphadenopathy, CARDIOVASCULAR: Sinus tachycardia. Normal S1/S2, + murmur. No pitting edema of bilateral LEs. s/p removal of chemo port on right upper chest no drainage no dehiscence no pus intact RESPIRATORY: CTAB. No wheezing, rhonchi, crackles. tachypnic. GASTROINTESTINAL: Abdomen less tense, however it remains tympanic, distended, non tender no palpable masses. Bowel sounds present : Zhao catheter noted with clear yellow urine MUSCULOSKELETAL:? No cyanosis or edema, no visible joint swelling. NEUROLOGICAL: Cranial nerves II-XII grossly intact. SKIN: No obvious rashes, no jaundice, normal turgor. Objective Labs 12/13/24 04:33 12/13/24 14:29 Labs: Laboratory Results - last 24 hr 12/13/24 04:33 WBC 4.1 RBC 2.58 L Hgb 7.6 L Hct 22.5 L MCV 87 MCH 29.5 MCHC 33.8 RDW Std Deviation 69.0 H Plt Count 16 L* D Neut % (Auto) 55 Lymph % (Auto) 25 [place] % (Auto) 19 H Eos % (Auto) 0 Baso % (Auto) 0 Neut # (Auto) 2.2 Lymph # (Auto) 1.0 [place] # (Auto) 0.8 Eos # (Auto) 0.0 Baso # (Auto) 0.0 Immature Gran # (Auto) 0.04 H Absolute Nucleated RBC 0.02 H Immature Gran % 1 H Nucleated RBC % 1 H Sodium 146 H Potassium 3.1 L Chloride 106 Carbon Dioxide 28.5 Anion Gap 12 BUN 31 H Creatinine 1.5 H Estim Creat Clear Calc 45.7 L eGFR 52 L BUN/Creatinine Ratio 21 H Glucose 107 H Calculated Osmolality 297 H Calcium 8.2 L Corrected Calcium 9.0 Phosphorus 2.4 Magnesium 1.8 Total Bilirubin 1.1 AST 31 ALT 26 Alkaline Phosphatase 176 H Total Protein 5.0 L Albumin 3.0 L Globulin 2.0 L Albumin/Globulin Ratio 1.5 Misc Test Result Platelets confirmed ABG Interpretation ABG results: 12/07/24 08:11 ABG pH 7.46 H ABG pCO2 36 ABG pO2 58 L* ABG HCO3 26 ABG O2 Saturation 92 ABG Base Excess 2 Quality Measures Quality Measures none (holding heparin for low platelets) Assessment & Plan Assessment Current Active Medications: Generic Name Dose Route Start Last Admin Trade Name Freq PRN Reason Stop Dose Admin Acetaminophen 650 mg 12/09/24 07:56 Acetaminophen 325 Mg Tablet PO 01/04/25 09:02 Q6HR PRN Fever > 99.9 Benzonatate 100 mg 11/30/24 10:46 12/08/24 00:58 Benzonatate 100 Mg Capsule PO 12/30/24 10:45 100 mg Q8HR PRN Administration COUGH Protocol Calcium Carbonate 600 mg 11/25/24 20:00 12/13/24 08:28 Calcium Carbonate 600 Mg Tablet PO 12/25/24 19:59 600 mg QDAY ARI Administration Furosemide 80 mg 12/07/24 18:00 12/09/24 17:34 Furosemide Inj 10 Mg/Ml 4ml Vial IVP 01/06/25 17:59 80 mg On Hold: 12/09/24 21:25 BIDD ARI Administration Gabapentin 100 mg 12/12/24 11:00 12/13/24 08:28 Gabapentin 100 Mg Capsule PO 01/11/25 10:59 100 mg BID ARI Administration Doxycycline Hyclate 100 mg/ 100 mls @ 100 mls/hr 12/09/24 09:00 12/13/24 08:28 Sodium Chloride IV 12/16/24 08:59 100 mls/hr BID ARI Administration Levofloxacin/Dextrose 750 mg in 150 mls @ 100 mls/hr 12/09/24 17:15 12/12/24 21:27 Levaquin Ivpb IV 12/16/24 17:14 Infused Q48H ARI Infusion Protocol Dextrose 1,000 mls @ 70 mls/hr 12/13/24 07:35 D5w IV 12/13/24 21:52 .[id number] ARI Potassium Chloride 20 meq in 100 mls @ 50 mls/hr 12/13/24 08:37 Kcl Ivpb IV 12/13/24 12:36 Q2H ARI Magnesium Sulfate 4 gm in 50 mls @ 12.5 mls/hr 12/13/24 08:38 Magnesium Sulfate Ivpb IV 12/13/24 12:37 X1 ONE Lactobacillus Rhamnosus 1 cap 12/09/24 09:00 12/13/24 08:27 Lactobacillus Rhamnosus 1 Cap PO 01/08/25 08:59 1 cap BID ARI Administration Megestrol Acetate 400 mg 12/06/24 11:15 12/13/24 08:27 Megestrol Acet Susp 400 Mg/10 Ml Udc PO 01/05/25 11:14 400 mg QDAY ARI Administration Midodrine 10 mg 12/05/24 09:15 12/13/24 05:49 Midodrine 5 Mg Tablet PO 01/04/25 09:14 Not Given TID ARI Mirtazapine 7.5 mg 12/05/24 21:00 12/12/24 20:40 Mirtazapine 15 Mg Tablet PO 01/04/25 20:59 7.5 mg HS ARI Administration Polyethylene Glycol 17 gm 11/26/24 07:16 Polyethylene Glycol 17 Gm Packet PO 12/25/24 18:29 QDAY PRN CONSTIPATION Protocol Vitamin B Complex/Vit C/Folic Acid 1 tab 12/06/24 09:00 12/13/24 08:28 Vitamin B Complex Tablet PO 01/05/25 08:59 1 tab QDAY ARI Administration Plan Mr. 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 Rutledge and Dr. Ugarte at [facility] presents to the emergency room with worsening fatigue and a feeling of heaviness in his chest admitted to ICU for neutropenic fever. Fevers are slightly improved today compared to yesterday clinically patient appears in less distress less shivering. Cr remains elevated, well above baseline. RAMSES Ddx: Consider pre vs intra vs post renal etiologies Dx - Daily CMP - renal US with small kidneys and cortical thinning, no hydronephrosis, no stones - UA 1+ protein, 3+ blood, ?amorphous crystals - Hematuria resolved Zhao bag with clear yellow urine - Nonobstructive renal calculi noted on CTAP, mild hydronephrosis noted - Currently, BP: 133/80 Cr: 1.5, BUN:31, eGFR: 52 Urine Output: 1.9L, Na: 146. Tx - Avoid nephrotoxic medications - strict i and o, patient has good urine output - Patient makes optimal amount of urine and creatine levels stable. Continue supportive care. - Creatinine is stable but Sodium is in high. Added additional 1L of D5W with 70ml/hr. Continue to hold Lasix. #Neutropenic Fever of unkown origin-improving #CAP #Stage IV metastatic Small cell lung cancer #Transaminitis #hypoalbuminemia #pancytopenia #normocytic anemia #hematuria likely 2/2-resolved #thrombocytopenia (PLT <5) - management per primary team Assessment and plan discussed with my attending physician Dr. Keith Small (PGY-1)- Internal medicine resident Attending Provider Attestation/Addendum Patient seen and examined with resident physician Dr. Small. Note reviewed, agree with findings and recommendations. RAMSES seems to be more prerenal azotemia. Patient still remains very sick looking and extremely fatigued. Today he seems to be more alert and awake. Encourage p.o. fluids. Zhao catheter with good urine output. Will monitor closely. Off IV fluids. Currently on Lasix which can be held as clinically he looks euvolemic. Spoke to primary team Patient with a significant pancytopenia and is on reverse isolation. WBC better. Ordered 1l -D5W.
[2024-12-13 09:06] LABS: Copper* 139 mcg/dL (70-175)
[2024-12-13] MEDS: Magnesium Sulfate 4 GM Ivpb 4 GM/50 ML BAG IV (09:07)
[2024-12-13] MEDS: POTASSIUM CHL 20 mEq IVPB 20 MEQ/100 ML BAG 50 MEQ IV ×2 (09:07→11:23)
--- NOTE | 2024-12-13 09:46 | PC.SS ---
Addendum entered by Tara Roberts 12/13/24 12:20: SS spoke to physician who states patient may need new 02 for home. SS updated floor nurse that we need 02 sats documented on room air or the exertion testing. Floor nurse indicated that patient is only on 1L of 02. Original Note: follow up note: SS followed up with DME order. Patient's insurance is contracted with [employer]. SS submitted documentation. Pending authorization. Patient not yet medically ready for discharge.
--- NOTE | 2024-12-13 12:05 | ESPR_ITS ---
<Statement entered by Jael Downing MD - 12/16/24 14:18> I reviewed above note and agree with findings and plans. I have also personally examined the patient with medicine team and went over assessment and plan with medical team including programming intern and resident physician. <Statement entered by Blaise Ponce MD - 12/13/24 14:12> No acute overnight events. Seen and examined at bedside and patient is much more alert compared to previous hospital days. Per nursing staff, he has been eating meals brought in from home. Otherwise, oxygen requirements improving, hemoglobin is stable, and renal function continues to improve. Anticipate discharge within next 24-48 hours with home oxygen. ----- Note reviewed and agree with care plan as documented. Please refer to the note below for further details. Plan discussed with attending physician Dr. Chang Ponce MD PGY-2 Internal Medicine Documentation for date of: 12/13/24 Subjective Subjective Interval history: Patient was seen and examined at bedside. No acute events took place overnight. Patient was started on gabapentin for anxiety yesterday and today greeted the entry of the provider into his room with a smile on his face. Mentation is improved, he is more alert and conversant about his health, as good as he can be. Reports no bodily pain. Pt has been weaned to room air, satting 98%. hemoglobin is stable 7.6, and renal function continues to improve. Anticipate discharge within next 24-48 hours with home oxygen. Anticipate discharge within the next 24 -48h. Will need removal of the PICC line and urinary catheter prior to discharge. Exam Vital Signs Temp Pulse Resp BP Pulse Ox O2 Del Method O2 Flow Rate 98.4 F 107 H 20 130/74 98 Nasal Cannula 1 12/13/24 11:45 12/13/24 11:45 12/13/24 11:45 12/13/24 11:45 12/13/24 11:45 12/13/24 11:45 12/13/24 11:45 Narrative Exam Constitutional Alert, oriented x1. On 2L via NC, sats 96% HEENT Vision grossly intact. Patent nares. Trachea midline. RT IJ catheter in place. Respiratory Chest normal on inspection, clear to auscultation bilaterally. Cardiovascular S1 and S2 audible, RRR. No murmurs or carotid bruit. No gross JVD. Abdominal Soft and BS + ; non tender to palpation in all quadrants. Large ecchymosis over the Lt abdominal wall. Genitourinary No bladder tenderness, no flank pain. Zhao in place, good UO. Musculoskeletal Extremities tone within normal limits. No LE edema. Neurological CN II - XII grossly intact. Extremity motor and sensation grossly intact. Skin Warm, dry and intact. Senile purpura. Psychiatric Patient has a good affect, is somewhat cooperative. Objective Labs 12/14/24 05:23 12/14/24 05:23 Labs: Laboratory Results - last 24 hr 12/04/24 12/13/24 13:35 04:33 WBC 4.1 RBC 2.58 L Hgb 7.6 L Hct 22.5 L MCV 87 MCH 29.5 MCHC 33.8 RDW Std Deviation 69.0 H Plt Count 16 L* D Neut % (Auto) 55 Lymph % (Auto) 25 Marion % (Auto) 19 H Eos % (Auto) 0 Baso % (Auto) 0 Neut # (Auto) 2.2 Lymph # (Auto) 1.0 Marion # (Auto) 0.8 Eos # (Auto) 0.0 Baso # (Auto) 0.0 Immature Gran # (Auto) 0.04 H Absolute Nucleated RBC 0.02 H Immature Gran % 1 H Nucleated RBC % 1 H Sodium 146 H Potassium 3.1 L Chloride 106 Carbon Dioxide 28.5 Anion Gap 12 BUN 31 H Creatinine 1.5 H Estim Creat Clear Calc 45.7 L eGFR 52 L BUN/Creatinine Ratio 21 H Glucose 107 H Calculated Osmolality 297 H Calcium 8.2 L Corrected Calcium 9.0 Phosphorus 2.4 Magnesium 1.8 Total Bilirubin 1.1 AST 31 ALT 26 Alkaline Phosphatase 176 H Total Protein 5.0 L Albumin 3.0 L Globulin 2.0 L Albumin/Globulin Ratio 1.5 Alpha-1-AT (Send Out) 253 H Ceruloplasmin 38 H Plasma Copper 139 TERESSA Screen NEGATIVE TERESSA Titer TNP TERESSA Titer 2 TNP TERESSA Titer 3 TNP TERESSA Pattern TNP TERESSA Pattern 2 TNP TERESSA Pattern 3 TNP Anti-Mitochondrial Titr TNP Anti-Mitochondrial Ab NEGATIVE Misc Test Result Platelets confirmed ABG Interpretation ABG results: 12/07/24 08:11 ABG pH 7.46 H ABG pCO2 36 ABG pO2 58 L* ABG HCO3 26 ABG O2 Saturation 92 ABG Base Excess 2 Quality Measures Quality Measures none (holding heparin for low platelets) Assessment & Plan Assessment Current Active Medications: Generic Name Dose Route Start Last Admin Trade Name Freq PRN Reason Stop Dose Admin Acetaminophen 650 mg 12/09/24 07:56 Acetaminophen 325 Mg Tablet PO 01/04/25 09:02 Q6HR PRN Fever > 99.9 Benzonatate 100 mg 11/30/24 10:46 12/08/24 00:58 Benzonatate 100 Mg Capsule PO 12/30/24 10:45 100 mg Q8HR PRN Administration COUGH Protocol Calcium Carbonate 600 mg 11/25/24 20:00 12/13/24 08:28 Calcium Carbonate 600 Mg Tablet PO 12/25/24 19:59 600 mg QDAY ARI Administration Furosemide 80 mg 12/07/24 18:00 12/09/24 17:34 Furosemide Inj 10 Mg/Ml 4ml Vial IVP 01/06/25 17:59 80 mg On Hold: 12/09/24 21:25 BIDD ARI Administration Gabapentin 100 mg 12/12/24 11:00 12/13/24 08:28 Gabapentin 100 Mg Capsule PO 01/11/25 10:59 100 mg BID ARI Administration Doxycycline Hyclate 100 mg/ 100 mls @ 100 mls/hr 12/09/24 09:00 12/13/24 08:28 Sodium Chloride IV 12/16/24 08:59 100 mls/hr BID ARI Administration Levofloxacin/Dextrose 750 mg in 150 mls @ 100 mls/hr 12/09/24 17:15 12/12/24 21:27 Levaquin Ivpb IV 12/16/24 17:14 Infused Q48H ARI Infusion Protocol Dextrose 1,000 mls @ 70 mls/hr 12/13/24 07:35 D5w IV 01/12/25 07:34 .[id number] ARI Potassium Chloride 20 meq in 100 mls @ 50 mls/hr 12/13/24 08:37 12/13/24 11:23 Kcl Ivpb IV 12/13/24 12:36 50 mls/hr Q2H ARI Administration Magnesium Sulfate 4 gm in 50 mls @ 12.5 mls/hr 12/13/24 08:38 12/13/24 09:07 Magnesium Sulfate Ivpb IV 12/13/24 12:37 12.5 mls/hr X1 ONE Administration Lactobacillus Rhamnosus 1 cap 12/09/24 09:00 12/13/24 08:27 Lactobacillus Rhamnosus 1 Cap PO 01/08/25 08:59 1 cap BID ARI Administration Megestrol Acetate 400 mg 12/06/24 11:15 12/13/24 08:27 Megestrol Acet Susp 400 Mg/10 Ml Udc PO 01/05/25 11:14 400 mg QDAY ARI Administration Midodrine 10 mg 12/05/24 09:15 12/13/24 05:49 Midodrine 5 Mg Tablet PO 01/04/25 09:14 Not Given TID ARI Mirtazapine 7.5 mg 12/05/24 21:00 12/12/24 20:40 Mirtazapine 15 Mg Tablet PO 01/04/25 20:59 7.5 mg HS ARI Administration Polyethylene Glycol 17 gm 11/26/24 07:16 Polyethylene Glycol 17 Gm Packet PO 12/25/24 18:29 QDAY PRN CONSTIPATION Protocol Vitamin B Complex/Vit C/Folic Acid 1 tab 12/06/24 09:00 12/13/24 08:28 Vitamin B Complex Tablet PO 01/05/25 08:59 1 tab QDAY ARI Administration Plan 64-year-old male with a history of 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 Admitted to ICU for management of septic shock; downgraded and found to have neutropenic fever, pancytopenia, s/p port-a-cath removal for potential source of infection; s/p central line. Sepsis Acute hypoxic respiratory failure - resolved Neutropenic fever Acute Thrombocytopenia, severe secondary to CAP vs HAP DDx: Most likely chemotherapy-induced myelosuppression vs bacterial pneumonia vs fungal vs atypical (immunocompromised) - Port-a-cath removed 11/30/2024 - On November 22 2024, was considering [facility] trial for immunotherapy, and possible transfer to [facility] for Terlatumab treatment - CT A/P 11/28/2023 showed numerous hepatic, left adrenal lesions, widespread bone mets - 3/4 SIRS criteria: HR 116 (>90), RR 18 (>20), WBC 3.5(<4) + organ dysfunction with Cr 2.5 >2 - Previously treated with zosyn, azithromycin, vancomycin - transfused Plt x2 over the last week. - Hemoglobin 10.6 after 1 unit of transfusion yesterday, trended down to 6.9 this morning and was given an additional unit by the overnight. Posttransfusion Hgb 8.4 (12/11) - Platelet 14 so gave an additional unit on 12/21. - Blood (12/09) and U ctx: Negative x2 Plan: - New double-lumen PICC line created by IR. - Will DC central line as possible nidus of infection.? - Continue IV Levaquin 750 mg (12/04 - - Continue IV Micafungin 100mg (11/28 - - Added IV Doxycycline 100mg BID (12/09 - - PRN Tylenol 650mg q6H PRN for fever >99.9 - Discontinued Filgrastim daily as ANC 1680 >1500 - PRN Midodrine 10 mg PO TID - Monitor vitals closely. Will continue symptomatic management at this time. - Referral to physical therapy Fluid overload, improving Congestive nephropathy in the setting of Stage IV Lung cancer with metastates - Diagnosed 2022 and started on chemotherapy and radiation therapy. Last dose November 22 2024. - CXR (12/07): b/l perihilar Lt basilar pneumonia and moderate vascular congestion - BUN 52/55, Cr 2.5/2.4, eGFR 28/29 - Patient was being diuresed with Lasix IV 80 mg twice daily until creatinine went up after having trended down while.? On 12/10 a diuresis holiday was implemented. Urine output on 12/09 was <3L.? - 12/11 Nephro: BP:119/80 Cr: 2.2/2.5, BUN:50/52, eGFR:33/28, Urine Output: 2.45L Na:147. Creatinine is stable but Sodium is in high.? - sodium 147 today and has been trending up as also mentioned by nephrology. Most likely to be secondary to dehydration from prolonged diuresis. Plan: - Nephrology on board, appreciate recommendations. - Lasix on hold inpatient. Plan to discharge on PO 20mg BID. - D5-W at IV 70mL/h (12/12 - ) - Strict I/O monitoring - Continue albumin 25mg qD x1 PRN - Fluid intake restricted to 1200mL - Avoid nephrotoxic medications - Renal dose adjustments for all medications as indicated - Consulted Oncology Dr. Forrester, appreciate recs. And Radiation Oncology, Dr. Ugarte consulted, appreciate recs. Protein calorie malnutrition, improving - Protein 5.0, Albumin 3.0 - significant muscle wasting - loss of subcutaneous fat - nutritional intake of <50% of recommended intake for > 2 weeks - bedridden or otherwise significantly reduced functional capacity Plan: - Consult to registered nurse obstetrics - Megesterol acetate PO 400mg QD - Will consider TPN after we diurese the patient to help improve his vascular pulmonary congestion Transaminitis, improving Most likely ischemic hepatitis secondary to prior septic shock. [id number] diagnosis is acute viral hepatitis, which has been ruled out by negative panel. Less likely is hepatic infiltration by metastases; CT shows lesions but no acute findings. Plan: - GI specialist Dr. Galan was consulted, appreciate recommendations - Follow-up in the acute hepatitis panel including viral marker, serial plasmin, autoimmune antibodies - Pending TERESSA and anti-mitochondrial Ab - Monitor for jaundice or worsening liver function. - Supportive care; avoid hepatotoxic medications. Will decrease the dose of acetaminophen to 500 mg every 6 hours with max dose of 2 g/day. New onset diabetes mellitus HbA1c 6.5%, no previous recorded A1c available. - Dietary and lifestyle modifications. - Target glucose 140-180 mg/dL. - Outpatient follow-up with PCP for further management. Hospital Management: Disposition: Tele, pending hospice placement Diet: cardiac with 1.2 L fluid restriction, ensure IV lines: PIV, right IJ, central line (PICC) GI Prophylaxis: Stopped Protonix 40mg qday DVT Prophylaxis: No chemical Px. CODE STATUS: Full Code This case was discussed with my attending physician, Dr. Downing, and senior resident, Dr Rosario Lockhart. Toni Vasquez, DO PGY I
[2024-12-13] MEDS: DEXTROSE 5%-WATER 1,000 ML 70 ML IV (13:15)
[2024-12-13 14:53] LABS: Potassium 3.7 mMol/L (3.4-5.1)
--- NOTE | 2024-12-13 16:42 | PC.NURSE ---
patient O2 sats at rest 98% on RA, patient O2 sats with walking stayed from 96%-98% on RA.
[2024-12-13] MEDS: LEVOFLOXACIN/D5W 750MG IVPB 750 MG/150 ML BAG 100 MG IV (16:48)
--- NOTE | 2024-12-13 21:15 | ESPR_ITS ---
Documentation for date of: 12/13/24 Subjective Subjective Interval history: Clinically improving Hemoglobin hematocrit relatively stable although still very thrombocytopenic at 16,000 eating meals from home Exam Vital Signs Temp Pulse Resp BP Pulse Ox O2 Del Method O2 Flow Rate 98.6 F 95 20 118/75 98 Room Air 1 12/13/24 16:00 12/13/24 16:00 12/13/24 21:04 12/13/24 16:00 12/13/24 16:00 12/13/24 16:00 12/13/24 11:45 Objective Labs 12/13/24 04:33 12/13/24 14:29 Labs: Laboratory Results - last 24 hr 12/04/24 12/09/24 12/13/24 13:35 11:14 04:33 WBC 4.1 RBC 2.58 L Hgb 7.6 L Hct 22.5 L MCV 87 MCH 29.5 MCHC 33.8 RDW Std Deviation 69.0 H Plt Count 16 L* D Neut % (Auto) 55 Lymph % (Auto) 25 Reeves % (Auto) 19 H Eos % (Auto) 0 Baso % (Auto) 0 Neut # (Auto) 2.2 Lymph # (Auto) 1.0 Reeves # (Auto) 0.8 Eos # (Auto) 0.0 Baso # (Auto) 0.0 Immature Gran # (Auto) 0.04 H Absolute Nucleated RBC 0.02 H Immature Gran % 1 H Nucleated RBC % 1 H Sodium 146 H Potassium 3.1 L Chloride 106 Carbon Dioxide 28.5 Anion Gap 12 BUN 31 H Creatinine 1.5 H Estim Creat Clear Calc 45.7 L eGFR 52 L BUN/Creatinine Ratio 21 H Glucose 107 H Calculated Osmolality 297 H Calcium 8.2 L Corrected Calcium 9.0 Phosphorus 2.4 Magnesium 1.8 Total Bilirubin 1.1 AST 31 ALT 26 Alkaline Phosphatase 176 H Total Protein 5.0 L Albumin 3.0 L Globulin 2.0 L Albumin/Globulin Ratio 1.5 Alpha-1-AT (Send Out) 253 H Ceruloplasmin 38 H Stool Campylobacter PCR Cancelled Stl E.coli Shiga Tox PCR Cancelled Stool Salmonella PCR Cancelled Stool Shigella PCR Cancelled Plasma Copper 139 TERESSA Screen NEGATIVE TERESSA Titer TNP TERESSA Titer 2 TNP TERESSA Titer 3 TNP TERESSA Pattern TNP TERESSA Pattern 2 TNP TERESSA Pattern 3 TNP Anti-Mitochondrial Titr TNP Anti-Mitochondrial Ab NEGATIVE Misc Test Result Platelets confirmed 12/13/24 14:29 WBC RBC Hgb Hct MCV MCH MCHC RDW Std Deviation Plt Count Neut % (Auto) Lymph % (Auto) Reeves % (Auto) Eos % (Auto) Baso % (Auto) Neut # (Auto) Lymph # (Auto) Reeves # (Auto) Eos # (Auto) Baso # (Auto) Immature Gran # (Auto) Absolute Nucleated RBC Immature Gran % Nucleated RBC % Sodium Potassium 3.7 D Chloride Carbon Dioxide Anion Gap BUN Creatinine Estim Creat Clear Calc eGFR BUN/Creatinine Ratio Glucose Calculated Osmolality Calcium Corrected Calcium Phosphorus Magnesium Total Bilirubin AST ALT Alkaline Phosphatase Total Protein Albumin Globulin Albumin/Globulin Ratio Alpha-1-AT (Send Out) Ceruloplasmin Stool Campylobacter PCR Stl E.coli Shiga Tox PCR Stool Salmonella PCR Stool Shigella PCR Plasma Copper TERESSA Screen TERESSA Titer TERESSA Titer 2 TERESSA Titer 3 TERESSA Pattern TERESSA Pattern 2 TERESSA Pattern 3 Anti-Mitochondrial Titr Anti-Mitochondrial Ab Misc Test Result Impressions Impression: Thrombocytopenia relatively stable hemoglobin hematocrit Respiratory failure improving continue supportive care relatively stable LFTs ABG Interpretation ABG results: 12/07/24 08:11 ABG pH 7.46 H ABG pCO2 36 ABG pO2 58 L* ABG HCO3 26 ABG O2 Saturation 92 ABG Base Excess 2 Assessment & Plan A&P Narrative A#1. Small cell CA of the lung initially limited now extensive prior chemoradiation now receiving additional chemo with Dr. Rutledge at the cancer treatment center A#2. Admitted with pancytopenia neutropenic fever receiving antibiotics micafungin filgrastim platelet transfusions. A#3. Abnormal LFTs Dr. Galan has seen patient and workup for chronic active hepatitis in progress. Time Spent With Patient Time: Total time spent is greater than 50% in coordination of care (as documented) at patient's floor/unit and/or counseling patient:
[2024-12-13] MEDS: MIRTAZAPINE 15 MG TABLET 7.5 MG PO (21:52)
[2024-12-13 23:16] LABS: Potassium 3.1 mMol/L (3.4-5.1)
[2024-12-14] VITALS (7 sets, daily range): BP systolic 114–126; BP diastolic 73–89; PULSE 63–110; RESP 12–28; TEMP 36.8–37.7; O2SAT 96–99; BMI 32.8
[2024-12-14] MEDS: POTASSIUM CHL 10 mEq IVPB 10 MEQ/100 ML BAG 70 MEQ IV ×5 (00:52→05:47)
[2024-12-14] MEDS: DEXTROSE 5%-WATER 1,000 ML 70 ML IV (04:33)
[2024-12-14 06:12] LABS: Basophils # (Auto) 0.0 Thou/mm3 (0.0-0.2); Basophils % (Auto) 0 % (0-2.5); Eosinophils # (Auto) 0.0 Thou/mm3 (0.0-0.5); Eosinophils % (Auto) 0 % (0-10); Hematocrit 21.6 % (41.0-53.0); Immature Granulocytes Auto 0.03 Thou/mm3 (0.00-0.00); Lymphocytes # (Auto) 0.9 Thou/mm3 (1.0-4.8); Lymphocytes % (Auto) 25 % (10-50); Mean Corpuscular HGB Conc 32.9 g/dl (31.0-37.0); Mean Corpuscular Hemoglobin 28.6 pg (25.0-35.0); Mean Corpuscular Volume 87 fL (80-100); Monocytes # (Auto) 0.8 Thou/mm3 (0.0-0.8); Monocytes % (Auto) 23 % (0-12); Neutrophils # (Auto) 1.9 Thou/mm3 (1.8-7.7); Neutrophils % (Auto) 52 % (37-80); Nucleated Red Blood Cell # 0.00 Thou/mm3 (0.00-0.00); Nucleated Red Blood Cell % 0 /100 WBC (0); RDW Standard Deviation 69.6 fL (35.1-43.9); Red Blood Count 2.48 Miln/mm3 (4.50-5.90); White Blood Count 3.7 Thou/mm3 (3.8-10.6)
[2024-12-14 06:16] LABS: Hemoglobin 7.1 g/dL (13.5-16.0); Platelet Count 13 Thou/mm3 (140-440)
[2024-12-14 06:28] LABS: Alanine Aminotransferase 15 U/L (10-49); Albumin, Serum 2.9 gm/dL (3.4-4.8); Albumin/Globulin Ratio 1.4 (1.2-2.2); Alkaline Phosphatase 169 U/L (46-116); Anion Gap 10 (7-16); Aspartate Amino Transferase 33 U/L (0-34); BUN/Creatinine Ratio 19 Ratio (12-20); Bilirubin,Total 1.1 mg/dL (0.3-1.2); Blood Urea Nitrogen 25 mg/dL (9-23); Calcium 7.7 mg/dL (8.3-10.6); Calcium (Corrected) 8.6 mg/dL (8.5-10.1); Carbon Dioxide 23.6 mMol/L (20.0-31.0); Chloride 100 mMol/L (98-107); Creatinine (Component) 1.3 mg/dL (0.6-1.3); Estimated Creatinine Clearance 57.8 mL/min (>60); Globulin 2.1 gm/dL (2.3-3.5); Glucose 287 mg/dL (74-106); Magnesium 2.0 mg/dL (1.6-2.6); Osmolality,Calculated 282 (275-295); Phosphorous 2.2 mg/dL (2.4-5.1); Potassium 3.7 mMol/L (3.4-5.1); Sodium 134 mMol/L (136-145); Total Protein 5.0 gm/dL (5.7-8.2); eGFR > 60 See Note
[2024-12-14] MEDS: CALCIUM CARBONATE 600 MG TABLET PO (08:42)
[2024-12-14] MEDS: DOXYCYCLINE INJ 100 MG in SODIUM CHLORIDE 0.9% (POP) 100 ML IV (08:42)
[2024-12-14] MEDS: MEGESTROL ACET SUSP 400 MG/10 ML UDC PO (08:42)
[2024-12-14] MEDS: LACTOBACILLUS RHAMNOSUS 1 CAP PO (08:42)
[2024-12-14] MEDS: GABAPENTIN 100 MG CAPSULE PO (08:42)
[2024-12-14] MEDS: VITAMIN B COMPLEX TABLET 1 TAB PO (09:00)
[2024-12-14] MEDS: NAPH,KPH MBDB 1 PACKET (1.5 GM) PO ×2 (09:12)
[2024-12-14] MEDS: POTASSIUM CHL 20 mEq IVPB 100 ML 50 MEQ IV ×2 (09:21→10:19)
--- NOTE | 2024-12-14 09:53 | PC.SS ---
Follow up note: SS spoke to rep from [email or web address] and they will deliver today. SS contacted patient's brother, Jorge, he clarified that he already spoke to them this morning and they will bring the DME here to hospital today. No ETA yet. SS inquired if he would like me to set up gurney transport and brother states he would rather take patient home. D/c pending today home with family. Family wants to discuss hospice at a later time.
[2024-12-14] MEDS: IRON SUCROSE CPLX INJ 20 MG/ML VIAL 5 ML 200 MG IVP (09:57)
[2024-12-14 11:08] LABS: Slide Review Platelets confirmed
--- NOTE | 2024-12-14 11:29 | PD.RESPRO ---
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 Rutledge and Dr. Ugarte at [facility] presents to the emergency room with worsening fatigue and a feeling of heaviness in his chest for the past 4 days. His symptoms began after a chemotherapy session on November 22. He is accompanied by his brother, who is providing translation. The patient reports feeling more tired than usual since his last chemotherapy session. He has also had a cough and a subjective fever. He denies shortness of breath. He describes a feeling of heaviness in his chest. His brother notes that the patient's white blood cell count was low on both Friday and Friday before the chemotherapy was administered. The patient's brother reports that the patient was constipated after chemotherapy but has not had diarrhea. There are no sick contacts at home. Patient is not complaining of any chest pain or shortness of breath. 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 12/02/2024: patient seen and examined at bedside, he is shivering and reports feeling very cold. he continued to have fevers overnight to 104, he remains on reverse contact precautions. Cr 2.4 from 2.6, BUN 43 GFR 29. remains tachycardic to 120s and BP is normotensive 12/03/2024: Patient seen and examined at bedside patient is seen with cooling packs underneath and cold towel on forehead he was shivering and fan is on hand he remains febrile to 104. Hematuria noted from Zhao catheter his platelets are less than 5, primary team to give platelets. Creatinine 2.3 BUN 46 he remains tachycardic. 12/04/2024: Patient seen and examined at bedside patient fevers are notably better compared to yesterday Tmax of 103 however patient is currently afebrile, patient remains tachycardic he received 1 unit platelets yesterday platelets bumped to 17 today hematuria improved today in Zhao bag yellow clear, creatinine remains at 2.4, overall he appears clinically improved today compared to yesterday. CTAP with renal calculi noted in the right renal pelvis nonobstructive. continue IV fluids with half-normal saline. 12/07/2024: Labs reviewed and patient examined at the bedside. Patient currently afebrile. Cr 2.8 and Urine Output of 3750mL. Continue to monitor for renal improvement. BP: 129/85 12/08/2024: Patient afebrile, but remaining tachycardic. Patient continues with dry cough. Patient's urine looks clear yellow. BP 107/67 Cr:2.6 BUN:59, eGFR:27, Urine output:4175mL. Patient makes optimal amount of urine and creatine levels stable. Continue to monitor for renal improvement. Continue supportive care. 12/09/2024: Labs reviewed and patient examined at the bedside. Patient is afebrile. Patient complains of generalized weakness. Continues intermittent dry cough. BP 131/96 Cr:2.4 BUN:55, eGFR:29, Urine output:3.4L. Patient makes optimal amount of urine and creatine levels stable. Continue to monitor for renal improvement. Continue supportive care. Patient currently looks euvolemic. Recommend to lower or discontinue Lasix. 12/10/2024: Labs reviewed and patient examined at the bedside. Patient still complains of generalized weakness. BP:108/67, Cr: 2.5, BUN:52, eGFR:28, Urine Output: 3.9 Na:145. Sodium, Creatinine, and urine output in increasing trend, which are signs of dehydration. Hold Lasix for now. Increase PO fluid intake. 12/11/2024: Labs reviewed and patient examined at the bedside. Patient looked slightly confused and was having difficulty in engaging or interacting with providers. BP:119/80 Cr: 2.2, BUN:50, eGFR:33, Urine Output: 2.45L Na:147. Creatinine is stable but Sodium is in high. Recommends giving patient IVF of D5W 1L Maintenance dose OR increase fluid uptake. Continue to hold Lasix for now. 12/12/2024 patient currently seen in medical floor. In reverse isolation. still sick looking. Very fragile and weak. Creatinine improving. Patient still making urine. Minimal hematuria noted. Platelets 25,000. at bedside. She wants him to go home with home physical therapy. Declined rehab. Sodium 149-added 1 L D5W. Hold Lasix. Clinically looks euvolemic. 12/13/2024: Labs reviewed and patient examined at the bedside. Cr: 1.5, BUN:31, eGFR: 52 Urine Output: 1.9L, Na: 146, Added additional 1L of D5W with 70ml/hr. Continue to hold Lasix. 12/14/2024: Labs reviewed and patient examined at the bedside. Cr: 1.3, BUN:25, eGFR:>60 Urine Output: 1L, Na: 134. Discontinue D5W IVF. Patient no longer in isolation for neutropenic fever. Zhao catherer will be taken out. Patient is much more interactive, can understand orders, and had improved significantly compared to yesterday Exam Vital Signs Temp Pulse Resp BP Pulse Ox O2 Del Method O2 Flow Rate 98.9 F 106 H 24 H 122/83 97 Room Air 1 12/14/24 08:00 12/14/24 08:00 12/14/24 08:00 12/14/24 08:00 12/14/24 08:00 12/14/24 08:00 12/14/24 08:00 Narrative Exam GENERAL: Awake and alert. HEENT: Head AT/ NC. Mucous membranes dry. NECK: Supple, no lymphadenopathy, CARDIOVASCULAR: Sinus tachycardia. Normal S1/S2, + murmur. No pitting edema of bilateral LEs. s/p removal of chemo port on right upper chest no drainage no dehiscence no pus intact RESPIRATORY: CTAB. No wheezing, rhonchi, crackles. tachypnic. GASTROINTESTINAL: Abdomen less tense, however it remains tympanic, distended, non tender no palpable masses. Bowel sounds present : Zhao catheter noted with clear yellow urine MUSCULOSKELETAL:? No cyanosis or edema, no visible joint swelling. NEUROLOGICAL: Cranial nerves II-XII grossly intact. SKIN: No obvious rashes, no jaundice, normal turgor. Objective Labs 12/14/24 05:23 12/14/24 05:23 Labs: Laboratory Results - last 24 hr 12/09/24 12/13/24 12/13/24 11:14 14:29 22:35 WBC RBC Hgb Hct MCV MCH MCHC RDW Std Deviation Plt Count Neut % (Auto) Lymph % (Auto) Wagoner % (Auto) Eos % (Auto) Baso % (Auto) Neut # (Auto) Lymph # (Auto) Wagoner # (Auto) Eos # (Auto) Baso # (Auto) Immature Gran # (Auto) Absolute Nucleated RBC Immature Gran % Nucleated RBC % Sodium Potassium 3.7 D 3.1 L D Chloride Carbon Dioxide Anion Gap BUN Creatinine Estim Creat Clear Calc eGFR BUN/Creatinine Ratio Glucose Calculated Osmolality Calcium Corrected Calcium Phosphorus Magnesium Total Bilirubin AST ALT Alkaline Phosphatase Total Protein Albumin Globulin Albumin/Globulin Ratio Stool Campylobacter PCR Cancelled Stl E.coli Shiga Tox PCR Cancelled Stool Salmonella PCR Cancelled Stool Shigella PCR Cancelled Misc Test Result 12/14/24 05:23 WBC 3.7 L RBC 2.48 L Hgb 7.1 L Hct 21.6 L* MCV 87 MCH 28.6 MCHC 32.9 RDW Std Deviation 69.6 H Plt Count 13 L* Neut % (Auto) 52 Lymph % (Auto) 25 Wagoner % (Auto) 23 H Eos % (Auto) 0 Baso % (Auto) 0 Neut # (Auto) 1.9 Lymph # (Auto) 0.9 L Wagoner # (Auto) 0.8 Eos # (Auto) 0.0 Baso # (Auto) 0.0 Immature Gran # (Auto) 0.03 H Absolute Nucleated RBC 0.00 Immature Gran % 1 H Nucleated RBC % 0 Sodium 134 L D Potassium 3.7 D Chloride 100 Carbon Dioxide 23.6 Anion Gap 10 BUN 25 H Creatinine 1.3 Estim Creat Clear Calc 57.8 L eGFR > 60 BUN/Creatinine Ratio 19 Glucose 287 H D Calculated Osmolality 282 Calcium 7.7 L Corrected Calcium 8.6 Phosphorus 2.2 L Magnesium 2.0 Total Bilirubin 1.1 AST 33 ALT 15 Alkaline Phosphatase 169 H Total Protein 5.0 L Albumin 2.9 L Globulin 2.1 L Albumin/Globulin Ratio 1.4 Stool Campylobacter PCR Stl E.coli Shiga Tox PCR Stool Salmonella PCR Stool Shigella PCR Misc Test Result Platelets confirmed ABG Interpretation ABG results: 12/07/24 08:11 ABG pH 7.46 H ABG pCO2 36 ABG pO2 58 L* ABG HCO3 26 ABG O2 Saturation 92 ABG Base Excess 2 Quality Measures Quality Measures none (holding heparin for low platelets) Assessment & Plan Assessment Current Active Medications: Generic Name Dose Route Start Last Admin Trade Name Freq PRN Reason Stop Dose Admin Acetaminophen 650 mg 12/09/24 07:56 Acetaminophen 325 Mg Tablet PO 01/04/25 09:02 Q6HR PRN Fever > 99.9 Benzonatate 100 mg 11/30/24 10:46 12/08/24 00:58 Benzonatate 100 Mg Capsule PO 12/30/24 10:45 100 mg Q8HR PRN Administration COUGH Protocol Calcium Carbonate 600 mg 11/25/24 20:00 12/14/24 08:42 Calcium Carbonate 600 Mg Tablet PO 12/25/24 19:59 600 mg QDAY ARI Administration Furosemide 80 mg 12/07/24 18:00 12/09/24 17:34 Furosemide Inj 10 Mg/Ml 4ml Vial IVP 01/06/25 17:59 80 mg On Hold: 12/09/24 21:25 BIDD ARI Administration Gabapentin 100 mg 12/12/24 11:00 12/14/24 08:42 Gabapentin 100 Mg Capsule PO 01/11/25 10:59 100 mg BID ARI Administration Dextrose 1,000 mls @ 70 mls/hr 12/13/24 07:35 12/14/24 04:33 D5w IV 01/12/25 07:34 70 mls/hr .[id number] ARI Administration Potassium Chloride 100 mls @ 50 mls/hr 12/14/24 09:15 12/14/24 10:19 Kcl Ivpb IV 12/14/24 13:14 50 mls/hr Q2H ARI Administration Lactobacillus Rhamnosus 1 cap 12/09/24 09:00 12/14/24 08:42 Lactobacillus Rhamnosus 1 Cap PO 01/08/25 08:59 1 cap BID ARI Administration Megestrol Acetate 400 mg 12/06/24 11:15 12/14/24 08:42 Megestrol Acet Susp 400 Mg/10 Ml Udc PO 01/05/25 11:14 400 mg QDAY ARI Administration Midodrine 10 mg 12/05/24 09:15 12/14/24 05:35 Midodrine 5 Mg Tablet PO 01/04/25 09:14 Not Given TID ARI Mirtazapine 7.5 mg 12/05/24 21:00 12/13/24 21:52 Mirtazapine 15 Mg Tablet PO 01/04/25 20:59 7.5 mg HS ARI Administration Polyethylene Glycol 17 gm 11/26/24 07:16 Polyethylene Glycol 17 Gm Packet PO 12/25/24 18:29 QDAY PRN CONSTIPATION Protocol Vitamin B Complex/Vit C/Folic Acid 1 tab 12/06/24 09:00 12/14/24 09:00 Vitamin B Complex Tablet PO 01/05/25 08:59 1 tab QDAY ARI Administration Plan Mr. 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 Rutledge and Dr. Ugarte at [facility] presents to the emergency room with worsening fatigue and a feeling of heaviness in his chest admitted to ICU for neutropenic fever. Fevers are slightly improved today compared to yesterday clinically patient appears in less distress less shivering. Cr remains elevated, well above baseline. RAMSES Ddx: Consider pre vs intra vs post renal etiologies Dx - Daily CMP - renal US with small kidneys and cortical thinning, no hydronephrosis, no stones - UA 1+ protein, 3+ blood, ?amorphous crystals - Hematuria resolved Zhao bag with clear yellow urine - Nonobstructive renal calculi noted on CTAP, mild hydronephrosis noted - Currently, BP:116/83 Cr: 1.3, BUN:25, eGFR:>60 Urine Output: 1L, Na: 134. Tx - Avoid nephrotoxic medications - strict i and o, patient has good urine output - Patient makes optimal amount of urine and creatine levels stable. Continue supportive care. - Creatinine is stable and Sodium is lowered. Discontinue D5W IVF. Continue to hold Lasix. #Neutropenic Fever of unknown origin-improving #CAP #Stage IV metastatic Small cell lung cancer #Transaminitis #hypoalbuminemia #pancytopenia #normocytic anemia #hematuria likely 2/2-resolved #thrombocytopenia (PLT <5) - management per primary team Assessment and plan discussed with my attending physician Dr. Keith Small (PGY-1)- Internal medicine resident Attending Provider Attestation/Addendum Patient seen and examined with resident physician Dr. Small. Note reviewed, agree with findings and recommendations. RAMSES seems to be more prerenal azotemia. Patient still remains very sick looking and extremely fatigued. Today he seems to be more alert and awake. Encourage p.o. fluids. Zhao catheter with good urine output. Will monitor closely. Off IV fluids. Currently on Lasix which can be held as clinically he looks euvolemic. Spoke to primary team Patient with a significant pancytopenia and is on reverse isolation. WBC better. Off of neutropenic isolation precautions. With the D5W his sodium and creatinine improved. Renal braga stable for discharge. DC Zhao catheter.
--- NOTE | 2024-12-14 12:06 | ESDS_ITS ---
<Statement entered by Jael Downing MD - 12/27/24 09:06> I reviewed above note and agree with findings and plans. I have also personally examined the patient with medicine team and went over assessment and plan with medical team including marketing research intern and resident physician. <Statement entered by Blaise Ponce MD - 12/14/24 20:07> Note reviewed and agree with care plan as documented. Please refer to the note below for further details. Plan discussed with attending physician Dr. Chang Ponce MD PGY-2 Internal Medicine Planned Discharge Date 12/14/24 DS: Providers Provider Date of admission: 11/25/24 13:44 Primary care physician: Physician No Primary/Family Admitting Provider: Rosales Newell MD Attending Provider on Admission: Jael Downing MD Consults: 11/28/24 08:36 Consult to Infectious Diseases Urgent Comment: RESTRICTED ANTIMICROBIAL MICAFUNGIN ORDERED Consulting Provider: Jim Head 11/29/24 07:54 Consult to General Surgery Routine Comment: For removal of port A catheter Consulting Provider: Judith Massey 11/30/24 14:46 Consult to Oncology Routine Comment: Consulting Provider: Kathleen Forrester 12/01/24 08:22 Consult to Nephrology Routine Comment: RAMSES Consulting Provider: Herbert Parker 12/03/24 17:31 Consult to Gastroenterology Routine Comment: colitis Consulting Provider: Marika Galan 12/06/24 10:38 Referral Physical Therapy Stat Comment: Physician Instructions: 12/06/24 10:47 Consult to Oncology Routine Comment: Consulting Provider: Abilio Ugarte 12/06/24 13:57 Referral Registered Dietitian Routine Comment: tube feed recs 12/10/24 11:01 Referral Hospice Routine Comment: stsge IV ca 12/12/24 11:08 Consult to Oncology Routine Comment: Consulting Provider: Rizwan Rutledge Attending Provider on DC: Toni Vasquez DO Discharging Provider: Toni Vasquez DO DS: Diagnosis Problem List Completed Was Problem List Reviewed/Reconciled?: Yes Hospital Course Hospital Course Hospital course: 64-year-old male with past medical history of stage IV metastatic small cell lung cancer on chemo and radiation follows Dr. Rutledge and Dr. Ugarte at [facility] who presented on 11/25/2024 for fatigue and chest heaviness after chemotherapy session on 11/22/2024. In ED, initial vitals showed BP of 87/60, pulse 127, and fever 101.7 ?F. Imaging, including CT A/P and CXR, showed numerous hepatic and adrenal lesions, mild ascites, widespread osteoblastic metastatic disease and evidence of left basilar pneumonia. Labs showed pancytopenia and thus patient was admitted to ICU for neutropenic fever and sepsis secondary to pneumonia. Port-a-cath removed for potential source of infection and IR placed central line for delivery of antibiotics.?He completed antibiotic therapy with Zosyn, azithromycin, and vancomycin. Oncology recommended daily filgrastim until ANC >1500. On 12/07, ANC 1680 and filgrastim DC'd and antibiotics changed to Levaquin and Micafungin.? Patient had unmeasurable WBC count in the beginning few days which gradually improved <4. Additionally, Cr trended up to 2.4-2.6 from a baseline of 1.3, oliguric, and patient was found to be in fluid overload, marked SOB with minimal activity, and lower extremity edema. Chest x-ray on 12/05/2024 showed moderate enlargement of cardiac contour, prominent vascular congestion. Patient was diagnosed with congestive nephropathy, likely 2/2 ATN from ischemia during earlier septic shock. Treated with twice daily IV Lasix 40mg and uptitated to IV 80mg bid as tolerated with down trending Cr. When Cr restablized itself at 2.4 and patient had had urine output >4L daily for four days, Lasix was discontinued to prevent pushing patient further into contraction alkalosis.? Hgb was initially stable at about 7.5, later improved to about 9 but during the last week of his stay it went down to 6.8 for which a unit of PRBC was given and later again to 6.9 requiring an additional unit.? Platelet count stayed low at less than 30 and when it was found to be less than 10 on two occasions, patient was transfused with platelets x3. At the point of discharge, patient's oxygen needs have weaned to RA and satting 99%. Patient is medically stable and deemed safe to return to his/her previous state of living. Admission Diagnoses: #Acute hypoxic respiratory failure #Neutropenic fever #Acute thrombocytopenia, severe #Community-acquired pneumonia versus hospital-acquired pneumonia #Fluid overload, #Congestive nephropathy in the setting of stage IV lung cancer with metastasis #Protein calorie malnutrition #Transaminitis #diabetes mellitus Discharge Instructions: - Follow up with your primary care physician within 1-2 week of discharge - Take your medications as prescribed below in the Prescription/ Med Rec section: Gabapentin 100 mg twice daily, mirtazapine 7.5 mg nightly, levofloxacin 750 mg daily for 4 days, two pills of midodrine 5mg, three times daily. - Follow up with your oncologists doctors Maty and Shanel closely after discharge. - If symptoms recur or worsen, return to the ED This case was discussed with my attending physician, Dr. Downing, and senior resident, Dr Rosario Lockhart. Toni Vasquez, DO PGY I Status at Discharge Cognitive/behavioral status at discharge: stable Overall status at discharge: patient is back to baseline Time Spent with Patient Time attestation: Total time spent providing and/or coordinating discharge services: more than 50% of patient's hospital stay Time spent: Greater than 30 minutes Quality: Stroke Pt Provided Written Stroke Discharge Instructions: No Exam Vital Signs Temp Pulse Resp BP Pulse Ox O2 Del Method O2 Flow Rate 98.9 F 106 H 24 H 122/83 97 Room Air 1 12/14/24 08:00 12/14/24 08:00 12/14/24 08:00 12/14/24 08:00 12/14/24 08:00 12/14/24 08:00 12/14/24 08:00 Narrative Exam Constitutional Alert, oriented x1. sats 99% on room air. HEENT Vision grossly intact. Patent nares. Trachea midline. RT IJ catheter in place. Respiratory Chest normal on inspection, clear to auscultation b/l. Cardiovascular S1 and S2 audible, RRR. No murmurs or carotid bruit. No gross JVD. Abdominal Soft and BS + ; non tender to palpation in all quadrants. Large ecchymosis over the Lt abdominal wall. Genitourinary No bladder tenderness, no flank pain. Zhao in place, good UO. Musculoskeletal Extremities tone within normal limits. No LE edema. Neurological CN II - XII grossly intact. Extremity motor and sensation grossly intact. Skin Warm, dry and intact. Senile purpura. Psychiatric Patient has a good affect, is somewhat cooperative. Discharge Plan Plan Patient Disposition: Home w/HOME HEALTH Patient condition on transfer: Stable Care Plan Goals: - Follow up with your primary care physician within 1-2 week of discharge - Take your medications as prescribed below in the Prescription/ Med Rec section: Gabapentin 100 mg twice daily, mirtazapine 7.5 mg nightly, levofloxacin 750 mg daily for 4 days, two pills of midodrine 5mg, three times daily. - Follow up with your oncologists doctors Maty and Shanel closely after discharge. - If symptoms recur or worsen, return to the ED Prescriptions/Referrals Prescriptions/Med Rec: New gabapentin 100 mg Capsule 100 mg PO BID 30 Days Qty: 60 0RF mirtazapine 7.5 mg tablet 7.5 mg PO HS 30 Days Qty: 30 0RF levofloxacin 750 mg tablet 750 mg PO Q24H 4 Days Qty: 4 0RF midodrine 10 mg tablet 10 mg PO TID 30 Days Qty: 90 0RF Rx Instructions: do not give last dose of day after 6PM or within 4 hrs of bedtime Referrals: No Primary/Family,Physician [Primary Care Provider] Patient/Caregiver Discharge Instructions Education Materials: First Aid: Shock, Sepsis, Understanding Sepsis Print Language: Slovenian Stand Alone Forms: Kiera Award Info., Patient Portal Info Letter Discharge Order Discharge Orders: Discharge (Routine); Ordered 12/14/24 Ordered By: Blaise Ponce Quality Discharge Quality Measures VTE prophylaxis
--- NOTE | 2024-12-14 13:54 | PC.CM ---
Addendum entered by Melody Dasilva RN 12/14/24 14:57: I spoke to patient's brother and I explained to him why I could not set up home health. I let him know patient needs to establish with a PCP because he has [employer]. I let him know he can contact [facility] or [facility] and they should be able to get him in right away. Original Note: I spoke to Tara HANDLEY and patient does not have a local PCP. I am not able to set up home health because patient does not have a local PCP. Tara spoke to family and let them know to follow up with his PCP in [place] to have them set up home health services.
--- NOTE | 2024-12-15 12:46 | PC.SS ---
SS received a call from patient's brother, Jorge, wanting a skilled therapy at home. SS inquired if he would prefer group home at a facility. SS explained the local SNF's. Patient's brother stated no , he did not want that. Brother preferred the home health at home. FREDIS Oliverbattery wrecker operator nurse and myself spoke to patient's brother on conference call about his options again. Thoroughly explained home health vs SNF. Family finally agreed to SNF. SS explained process may take a little time since we need prior auth and patient is no longer at home. Family understood. If SNF is not approved, family would then like to attempt home health again. FAmily states they have patient now established with [facility], ANIL Garcia. SS disussed [facility] and provided number again if they need further assistance with transport. SS will submit inquiry, PASRR and request for auth. Family prefers [facility] since its closer to them.
[2024-12-15 19:50] LABS: Source STOOL
== END 2024-12-14 13:09 | disposition home health service (06) | DRG 720 ==
LOC: SERX 11:55 → SERHOLD 13:47 → S2SX 17:45 → S2NX 11-29 23:27
PROVIDERS: Specialist; Student in an Organized Health Care Education/Training Program; Surgery; Admitting Provider Internal Medicine Critical Care Medicine; Emergency Provider Emergency Medicine; Visit Provider Internal Medicine
PROC: 0JPT03Z Removal of Infusion Device from Trunk Subcutaneous Tissue and Fascia, Open Approach (ICD-10-PCS; CPT 36590; principal; 2024-11-30 07:30)
DX: A41.9 Sepsis, unspecified organism (principal); C79.51 Secondary malignant neoplasm of bone; C34.90 Malignant neoplasm of unspecified part of unspecified bronchus or lung; R65.21 Severe sepsis with septic shock; D70.9 Neutropenia, unspecified; R50.81 Fever presenting with conditions classified elsewhere; J18.9 Pneumonia, unspecified organism; J96.01 Acute respiratory failure with hypoxia; K59.00 Constipation, unspecified; D61.818 Other pancytopenia; C79.72 Secondary malignant neoplasm of left adrenal gland; D50.0 Iron deficiency anemia secondary to blood loss (chronic); D61.810 Antineoplastic chemotherapy induced pancytopenia; E11.9 Type 2 diabetes mellitus without complications; E46 Unspecified protein-calorie malnutrition; E87.0 Hyperosmolality and hypernatremia; E87.20 Acidosis, unspecified; E88.09 Other disorders of plasma-protein metabolism, not elsewhere classified; F17.200 Nicotine dependence, unspecified, uncomplicated; F41.9 Anxiety disorder, unspecified; G89.29 Other chronic pain; N17.0 Acute kidney failure with tubular necrosis; N27.1 Small kidney, bilateral; R18.8 Other ascites; R62.7 Adult failure to thrive; T45.1X5A Adverse effect of antineoplastic and immunosuppressive drugs, initial encounter; Y95 Nosocomial condition; N13.2 Hydronephrosis with renal and ureteral calculous obstruction; J81.1 Chronic pulmonary edema; E27.40 Unspecified adrenocortical insufficiency; J47.0 Bronchiectasis with acute lower respiratory infection; R65.20 Severe sepsis without septic shock; Z53.20 Procedure and treatment not carried out because of patient's decision for unspecified reasons; Z74.01 Bed confinement status; Z78.9 Other specified health status; Z79.899 Other long term (current) drug therapy; Z92.3 Personal history of irradiation; E87.70 Fluid overload, unspecified; C78.7 Secondary malignant neoplasm of liver and intrahepatic bile duct
CPT/HCPCS: 36415; 36600; 71045; 71250; 74176; 76705; 76770; 80053; 80069; 80074; 80202; 81001; 82103; 82105; 82390; 82525; 82607; 82728; 82803; 83036; 83540; 83550; 83605; 83615; 83735; 83880; 84100; 84132; 84145; 84443; 84484; 85014; 85018; 85025; 85049; 85610; 85730; 86038; 86140; 86255; 86331; 86635; 86850; 86900; 86901; 86923; 86965; 87015; 87040; 87045; 87046; 87081; 87086; 87177; 87205; 87209; 87400; 87493; 87502; 87634; 87811; 87899; 93005; 93306; 94640; 94667; 97162; 99283; A4217; A4649; A9270; C1751; C1894; J0131; J0456; J0613; J1442; J1642; J1644; J1756; J1938; J1956; J2247; J2250; J2543; J2704; J3373; J3375; J3475; J3480; J3490; J7030; J7050; J7070; J7120; J7121; P9016; P9035; P9047; Q0167; Q5101; Q9963

== ENCOUNTER 2024-12-22 16:49 | Emergency (ER) | payer MEDICAID, SELFPAY ==
[2024-12-22] VITALS (12 sets, daily range): BP systolic 95–117; BP diastolic 61–80; PULSE 76–100; RESP 16–20; TEMP 36.4–37.4; O2SAT 95–97; BMI 24.7
--- NOTE | 2024-12-22 17:00 | EDNOTE_ITS ---
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 Rutledge and Dr. Ugarte at [facility] currently in acute rehab hospital, was sent to us for evaluation regarding hemoglobin of 6.3. Patient was noted to low blood pressure problem also on the low 90s, and was given 1 L fluids. Related Data Previous Rx's ?Medication ?Instructions ?Recorded gabapentin 100 mg capsule 100 mg PO BID 30 days #60 ca ps 12/14/24 midodrine 10 mg tablet 10 mg PO TID 30 days #90 tab s 12/14/24 mirtazapine 7.5 mg tablet 7.5 mg PO HS 30 days #30 tab s 12/14/24 Allergies Allergy/AdvReac Type Severity Reaction Status Date / Time No Known Allergies Allergy Verified 12/22/24 17:16 Review of Systems Review of Systems Narrative Review of Systems: Review of system reviewed and within normal limits except mentioned in HPI ED Exam Narrative Physical exam: VITAL SIGNS: Reviewed. GENERAL APPEARANCE: Alert and interactive, follows commands, no acute distress, HEAD AND FACE: Non-traumatic. ENT: PERRL, pale conjunctiva, eyelid no trauma, Mucous membrane moist. NECK: Supple, nontender, no nuchal rigidity. CHEST: No tenderness, no crepitus, no paradoxical movement, no retractions. LUNGS: Clear, well ventilated, symmetric, no rales, no wheezing, no ronchi, no stridor, good breath sounds bilaterally. HEART: Regular rate, regular rhythm, no murmur, no gallops. ABDOMEN: Soft, positive bowel sounds, nondistended, no guarding, nontender, no rebound, no masses, RECTAL: Deferred. GENITAL: Deferred. NEUROLOGICAL: Gross motor function intact sensory function intact, Appropriate for age. MUSCULOSKELETAL: low back nontender, full range of motion. EXTREMITIES: Nontender, full range of motion. SKIN: Color pale, dry, no rash, no lacerations, no abrasions, no contusions. LYMPHATICS: Deferred. Course Quality Measures none Orders Category Date Time Status Transfuse,blood/blood products ONCE Care 12/22/24 17:00 Completed XR chest 1V Stat Exams 12/22/24 17:00 Completed CBC Stat Lab 12/22/24 17:04 Completed Comprehensive Metabolic Panel Stat Lab 12/22/24 17:04 Completed Partial Thromboplastin Time Stat Lab 12/22/24 17:04 Completed Prothrombin Time with INR Stat Lab 12/22/24 17:04 Completed Red Blood Cells Stat Lab 12/22/24 17:04 Completed Type and Screen Stat Lab 12/22/24 17:04 Completed Urinalysis Stat Lab 12/22/24 23:30 Completed Tamsulosin HCl [Flomax] Med 12/22/24 18:38 Discontinued 0.4 mg PO X1 ONE Vital Signs Vital signs: Vital Signs Temperature 99.4 F 12/22/24 17:16 Pulse Rate 97 12/22/24 17:16 Respiratory Rate 20 12/22/24 17:16 Blood Pressure 111/61 12/22/24 17:16 Pulse Oximetry (%) 97 12/22/24 17:16 Oxygen Delivery Method Room Air 12/22/24 17:16 Discharge Plan Plan Patient Disposition: HOME (Self Care) Discharge Disposition comment: Stable Prescriptions/Referrals Prescriptions/Med Rec: No Action gabapentin 100 mg Capsule 100 mg PO BID 30 Days Qty: 60 0RF mirtazapine 7.5 mg tablet 7.5 mg PO HS 30 Days Qty: 30 0RF midodrine 10 mg tablet 10 mg PO TID 30 Days Qty: 90 0RF Rx Instructions: do not give last dose of day after 6PM or within 4 hrs of bedtime Referrals: No Primary/Family,Physician [Primary Care Provider] - In 1 week Problem List Clinical Impression: Anemia, History of lung cancer Patient/Caregiver Discharge Instructions Discharge Activity: activity as tolerated Education Materials: Anemia Additional Instructions: Thank you for the opportunity for serving you today. You are stable for discharged . 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 Rutledge and Dr. Ugarte at cancer center currently in acute rehab hospital, was sent to us for evaluation regarding hemoglobin of 6.3. Patient was noted to low blood pressure problem also on the low 90s, and was given 1 L fluids. Patient's hemoglobin was noted to be 6.5 hematocrit of 20.0. Her WBC count today is normal chest x-ray showed having pneumonia however she just finished antibiotic treatment. he is satting 96% on room air. Patient stable for discharge home after patient received 2 L packed RBC. Medication Administration(s) Medication Administration History Discontinued Medications Tamsulosin HCl (Tamsulosin Hcl 0.4 Mg Capsule) 0.4 mg PO X1 ONE Stop: 12/22/24 18:39 Last Admin: 12/22/24 18:39 Dose: Not Given Documented By: NICKI Non-Admin Reason: Wrong Patient
--- NOTE | 2024-12-22 17:00 | XR_ITS ---
Examination: AP chest single view Technique one AP portable upright chest single view Date and time: December 22, 2024 1731 hrs., Comparison 9 second 2024 Indications: Chest pain shortness of breath beginning 2 days ago. Findings: Masslike area in the left upper lobe again noted, please see the CT chest report November 26, 2024 Significant left base pneumonia obscuring detail left hemidiaphragm No significant cardiac enlargement Trachea is deviated to the left No pulmonary edema Prominent osteopenia Impression: Significant parenchymal disease versus mass in the left upper lobe again noted with pleural thickening Prominent pneumonia left base
[2024-12-22 17:19] LABS: Basophils # (Auto) 0.0 Thou/mm3 (0.0-0.2); Basophils % (Auto) 0 % (0-2.5); Eosinophils # (Auto) 0.0 Thou/mm3 (0.0-0.5); Eosinophils % (Auto) 0 % (0-10); Immature Granulocytes Auto 0.04 Thou/mm3 (0.00-0.00); Lymphocytes # (Auto) 0.9 Thou/mm3 (1.0-4.8); Lymphocytes % (Auto) 24 % (10-50); Mean Corpuscular HGB Conc 32.5 g/dl (31.0-37.0); Mean Corpuscular Hemoglobin 29.8 pg (25.0-35.0); Mean Corpuscular Volume 92 fL (80-100); Monocytes # (Auto) 1.4 Thou/mm3 (0.0-0.8); Monocytes % (Auto) 35 % (0-12); Neutrophils # (Auto) 1.5 Thou/mm3 (1.8-7.7); Neutrophils % (Auto) 39 % (37-80); Nucleated Red Blood Cell # 0.00 Thou/mm3 (0.00-0.00); Nucleated Red Blood Cell % 0 /100 WBC (0); RDW Standard Deviation 73.7 fL (35.1-43.9); Red Blood Count 2.18 Miln/mm3 (4.50-5.90); White Blood Count 3.9 Thou/mm3 (3.8-10.6)
[2024-12-22 17:25] LABS: Hemoglobin 6.5 g/dL (13.5-16.0); Platelet Count 42 Thou/mm3 (140-440)
[2024-12-22 17:26] LABS: Hematocrit 20.0 % (41.0-53.0)
[2024-12-22 17:27] LABS: INR 1.1 (0.9-1.3); Partial Thromboplastin Time 25.1 Seconds (22.0-36.0); Prothrombin Time 12.0 Seconds (9.0-12.2)
[2024-12-22 17:33] LABS: Alanine Aminotransferase 17 U/L (10-49); Albumin, Serum 3.3 gm/dL (3.4-4.8); Albumin/Globulin Ratio 1.3 (1.2-2.2); Alkaline Phosphatase 217 U/L (46-116); Anion Gap 9 (7-16); Aspartate Amino Transferase 34 U/L (0-34); BUN/Creatinine Ratio 12 Ratio (12-20); Bilirubin,Total 0.9 mg/dL (0.3-1.2); Blood Urea Nitrogen 14 mg/dL (9-23); Calcium 8.6 mg/dL (8.3-10.6); Calcium (Corrected) 9.2 mg/dL (8.5-10.1); Carbon Dioxide 21.9 mMol/L (20.0-31.0); Chloride 108 mMol/L (98-107); Creatinine (Component) 1.2 mg/dL (0.6-1.3); Estimated Creatinine Clearance 56.1 mL/min (>60); Globulin 2.6 gm/dL (2.3-3.5); Glucose 101 mg/dL (74-106); Osmolality,Calculated 278 (275-295); Potassium 4.3 mMol/L (3.4-5.1); Sodium 139 mMol/L (136-145); Total Protein 5.9 gm/dL (5.7-8.2); eGFR > 60 See Note
[2024-12-22 17:39] LABS: Slide Review Platelets confirmed
[2024-12-22 23:45] LABS: Collection Type, Urine Clean Catch; Squamous Epithelial Cell,Urine 0 /hpf (0-5)
[2024-12-22 23:48] LABS: Bilirubin,Urine Negative (Negative); Blood,Urine Negative (Negative); Clarity,Urine Clear (Clear/Hazy); Color,Urine Yellow (Lt Yel-Yel); Glucose, Urine Negative (Negative); Ketones,Urine Negative (Negative); Leukocyte Esterase,Urine Negative (Negative); Nitrite,Urine Negative (Negative); PH,Urine 6.0 (5.0-7.0); Protein,Urine Negative (Neg - Trace); RBC,Urine 1 /hpf (0-3); Specific Gravity,Urine 1.017 (1.001-1.035); Urobilinogen,Urine Negative mg/dL (0.0-1.0); WBC,Urine 2 /hpf (0-5)
[2024-12-23 01:49] VITALS: BP 120/61; PULSE 80; RESP 16; TEMP 37.2; O2SAT 96
--- NOTE | 2024-12-23 01:56 | PD.EDADDENDU ---
Emergency Room Addendum Addendum Narrative: 0000: Care assumed from Meeta Ervin NP (emergency mid-level provider). Past medical, surgical, social and family history reviewed. Vitals and home medications reviewed. Results and treatment plan discussed. I will assume the care of the patient at this time and will follow the patient, pending transfer. The following addendum documentation note is intended to reflect any pending information, findings, or radiology results not included in the patient?s initial chart by the previous shift randell. 0156: EMS transported patient.
--- NOTE | 2024-12-23 01:57 | PC.NURSE ---
REPORT GIVEN TO SNF STAFF ARSH AT [facility].
== END 2024-12-23 02:00 | disposition home or self-care (01) ==
PROVIDERS: Nurse Practitioner Family; Emergency Provider Emergency Medicine
DX: D64.9 Anemia, unspecified (principal); C34.90 Malignant neoplasm of unspecified part of unspecified bronchus or lung
CPT/HCPCS: 36415; 36430; 71045; 80053; 81001; 85025; 85610; 85730; 86850; 86900; 86901; 86923; 99284; P9016

== ENCOUNTER → 2025-01-14 | Outpatient (CLI) | payer SELFPAY ==
[2025-01-14 08:45] LABS: Misc Send Out* See Sep Rpt
[2025-01-14 10:03] LABS: Basophils # (Auto) 0.1 Thou/mm3 (0.0-0.2); Basophils % (Auto) 1 % (0-2.5); Eosinophils # (Auto) 0.2 Thou/mm3 (0.0-0.5); Eosinophils % (Auto) 2 % (0-10); Hematocrit 29.5 % (41.0-53.0); Hemoglobin 9.6 g/dL (13.5-16.0); Immature Granulocytes Auto 0.07 Thou/mm3 (0.00-0.00); Lymphocytes # (Auto) 2.6 Thou/mm3 (1.0-4.8); Lymphocytes % (Auto) 30 % (10-50); Mean Corpuscular HGB Conc 32.5 g/dl (31.0-37.0); Mean Corpuscular Hemoglobin 30.5 pg (25.0-35.0); Mean Corpuscular Volume 94 fL (80-100); Monocytes # (Auto) 1.1 Thou/mm3 (0.0-0.8); Monocytes % (Auto) 13 % (0-12); Neutrophils # (Auto) 4.7 Thou/mm3 (1.8-7.7); Neutrophils % (Auto) 54 % (37-80); Nucleated Red Blood Cell # 0.00 Thou/mm3 (0.00-0.00); Nucleated Red Blood Cell % 0 /100 WBC (0); Platelet Count 124 Thou/mm3 (140-440); RDW Standard Deviation 81.5 fL (35.1-43.9); Red Blood Count 3.15 Miln/mm3 (4.50-5.90); White Blood Count 8.7 Thou/mm3 (3.8-10.6)
[2025-01-14 10:16] LABS: Alanine Aminotransferase 89 U/L (10-49); Albumin, Serum 4.5 gm/dL (3.4-4.8); Albumin/Globulin Ratio 1.1 (1.2-2.2); Alkaline Phosphatase 658 U/L (46-116); Anion Gap 13 (7-16); Aspartate Amino Transferase 99 U/L (0-34); BUN/Creatinine Ratio 25 Ratio (12-20); Bilirubin,Total 1.5 mg/dL (0.3-1.2); Blood Urea Nitrogen 35 mg/dL (9-23); Calcium 10.1 mg/dL (8.3-10.6); Calcium (Corrected) 10.1 mg/dL (8.5-10.1); Carbon Dioxide 20.3 mMol/L (20.0-31.0); Chloride 103 mMol/L (98-107); Creatinine (Component) 1.4 mg/dL (0.6-1.3); Globulin 4.0 gm/dL (2.3-3.5); Glucose 99 mg/dL (74-106); Osmolality,Calculated 279 (275-295); Potassium 4.6 mMol/L (3.4-5.1); Sodium 136 mMol/L (136-145); Total Protein 8.5 gm/dL (5.7-8.2); eGFR 56 See Note
== END | disposition home or self-care (01) ==
LOC: SCTO 08:09
PROVIDERS: PCP Physician Assistant; Referring Provider Internal Medicine Hematology & Oncology; Visit Provider Internal Medicine Hematology & Oncology
DX: C34.90 Malignant neoplasm of unspecified part of unspecified bronchus or lung (principal); C79.51 Secondary malignant neoplasm of bone
CPT/HCPCS: 36415; 80053; 85025

== ENCOUNTER 2025-01-31 11:16 | Outpatient (RCR) | payer MEDICAID, SELFPAY ==
--- NOTE | 2025-01-16 23:40 | CTCFLWUP_ITS ---
Patient: ELLE MAYA : 1960 Page 6 of 8 FOLLOW UP NOTE DATE OF SERVICE: 01/13/2025 NAME: ELLE MAYA ACCOUNT: [id number] : 1960 AGE: 64 INTERVAL HISTORY: Kayla, a male with stage 4 small cell cancer is here for follow up . Patient was recently readmitted to the hospital for progressive pneumonia. Patient has been on lurbinectedin and likely progressing as patient have weight loss. Patient's naterra is pending. 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 DATE OF DIAGNOSIS: 10/31/2022 as a limited stage small cell lung cancer July 2023 as advanced stage small cell lung cancer STAGE/TNM: Advanced stage small cell lung cancer on second line therapy TREATMENT HISTORY: Care?Plan Start?Date Cycle Day Intent CISplatin?75?mg/m*2,?Etoposide?with?XRT?for?limited?small?cell?lung?ca 01/01/2023 1 21 Curative?(primary) carboplatin?and?irinotecan 12/15/2023 1 28 Palliative zometa?q?30?days,?q?90?days?for?bone?mets 12/15/2023 1 90 Palliative Lurbinectedin 04/28/2024 1 21 Palliative HISTORY OF PRESENT ILLNESS: Elle Maya is a 64-year-old CARLOS speaking Other male following oncology history. September 2022: Patient was diagnosed with community-acquired pneumonia in [place]. Treated with antibiotics. 10/31/2022: Mr. Maya had a bronchoscopy done in [place] due to persistent pneumonia. 11/07/2022: 11/19/2022: MRI of the brain with and without contrast 12/05/2022: PET/CT scan 01/01/2023: Patient had first cycle of cisplatin and 3 days of etoposide. 12/30/2022 - 02/10/2023: Mr. Maya had 5400 cGy radiation along with chemotherapy 01/22/2023: Mr. Maya had second cycle of cisplatin and 1 day of etoposide. 02/12/2023: Mr. Maya had third cycle of cisplatin 03/17/2023: Mr. Maya had fourth cycle of cisplatin 04/18/2023: PET/CT scan? 07/22/2023: PET/CT scan? 11/28/2023: CT scan of the abdomen and pelvis with IV contrast 12/01/2023: MRI of the lumbar spine without contrast MRI brain 02/03/2024 shows no metastatic disease in the brain Ct chest 03/10/2024 Laboratory, Imaging, and Diagnostic Test Results - Most recent imaging scan (date not specified): - Lung tumor: 10mm (reduced from 13mm) - Liver nodule: 6mm (reduced from 11mm) - Adrenal gland tumor: 11mm (reduced from 20mm) - No new cancer detected 08/27/2024 CT scan IMPRESSION: Significant decrease in pneumonia left base compared with July 07, 2024 Small left pleural effusion Left adrenal nodule measures 12 mm compared to [address] abdomen March 10, 2024 Left lateral periaortic lymph node measures 8 mm compared to 10 mm on March 10, 2024 Left lateral periaortic lymph node measures 2 mm compared to 4 mm on March 10, 2024 No new abdominal or pelvic lymphadenopathy compared with March 10, 2024 Widespread osteoblastic metastatic disease, with progression of osteoblastic metastatic disease involving T9, T8 and both iliac bones compared with March 10, 2024 08/21/2024Widespread osseous metastatic disease Severe pathologic compression fracture T12, retropulsion of the posterior superior margin of this vertebral body 6 mm No epidural tumor compression of the conus medullaris or cauda equina OTHER MEDICAL HISTORY/CONDITIONS: Small cell lung cancer - recently diagnosed Denies FAMILY HISTORY: Father:?2006?LUNG?CANCER,??2009 Sibling:?SISTER?BREAST?CA Cancer History:?PATERNAL UNCLE, PROSTATE CA SOCIAL HISTORY: Occupational?History:?RETIRED Education?Level:?College Graduate, 2 year degree Marital?Status:? Tobacco?Pack?per?Day:?1 Tobacco?Use?Years:?45 Tobacco?Use:?STOPPED?3?MO?AGO ETOH?Use:?SOCIAL?DRINKER Drug?Note:?Denies Social?History?Note:?Lives?with?son MEDICATIONS: 1. dexamethasone - 4 mg 2 tab daily for 2 days after each chemotherapy 2. morphine - 30 mg 1 Capsule three times a day 3. ondansetron HCl - 8 mg 1 tab every 8 hours as needed for nausea Medications Last Reconciled by Makenna Silva MA on 10/28/2024 (Reconcile on Approval: ?) ALLERGIES: No Known Drug Allergies REVIEW OF SYSTEMS: A complete 14-point review of systems was performed and is negative except as noted in interval history. PHYSICAL EXAMINATION: VITAL SIGNS: PAIN: 0 - No pain ECOG Performance Status: None EYE: Conjunctivae is white MOUTH: Oral cavity is moist . Tenderness elicited over the thoracic vertebrae as well as on lumbar vertebrae on deep palpation LABORATORY DATA: I have personally reviewed and interpreted each of the patient?s relevant lab tests, abnormal findings are below: Date 12/14/24 12/22/24 ??WHITE?BLOOD?COUNT?(Thou/mm3) ? 3.9 ??RED?BLOOD?COUNT?(Miln/mm3) ? 2.18?L ??HEMOGLOBIN?(gm/dl) ? 6.5?LL ??HEMATOCRIT?(%) ? 20.0?LL ??PLATELET?COUNT?(Thou/mm3) ? 42?L ??NEUTROPHILS?%,?AUTO?(%) ? 39 ??LYMPH?%,?AUTO?(%) ? 24 ??NEUTROPHILS,?AUTO?(Thou/mm3) ? 1.5?L ??GLUCOSE,RANDOM?(mg/dL) 287?H 101 ??BLOOD?UREA?NITROGEN?(mg/dL) 25?H 14 ??CREATININE?(mg/dL) 1.30 1.20 ??SODIUM?(mmol/L) 134?L 139 ??POTASSIUM?(mmol/L) 3.7 4.3 ??CHLORIDE?(mmol/L) 100 108?H ??CrCl?(CandG)?(ml/min) 61.21 66.31 ??AST/SGOT?(Unit/L) 33 34 ??ALT/SGPT?(Unit/L) 15 17 ??ALKALINE?PHOSPHATASE?(Unit/L) 169?H 217?H ??BILIRUBIN,?TOTAL?(mg/dL) 1.1 0.9 ??PROTEIN?TOTAL?(gm/dl) 5.0?L 5.9 ??ALBUMIN,?SERUM?(gm/dl) 2.9?L 3.3?L ??GLOBULIN?(gm/dl) 2.1?L 2.6 ??ALBUMIN/GLOBULIN?RATIO 1.4 1.3 ??CALCIUM,?SERUM?(mg/dL) 7.7?L 8.6 ??CALCIUM?SERUM?(CORRECTED)?(mg/dL) 8.6 9.2 ??MAGNESIUM?(mg/dL) 2.0 ? ASSESSMENT/PLAN: Small cell lung cancer extensive stage-recurrence of the cancer Patient with 45-year pack smoking history Patient initially had limited stage disease S/p chemoradiation 12/30/2022 - 02/10/2023: Mr. Maya received 5400 cGy radiation therapy along with cisplatin and etoposide. Mr. Maya had 4 cycles of cisplatin and etoposide (01/01/2023 - 03/17/2023) PET/CT scan (07/22/2023 showed improvement p Patient had MRI brain and was negative Patient did not receive any prophylactic radiation Patient started having back pain in August 2023 CT scan of the abdomen showed extensive hepatic metastasis as well as pericaval lymphadenopathy (11/28/2023). MRI of the lumbar spine showed osseous metastasis as documented above (12/01/2023) Mr. Maya has mild tingling and numbness most likely secondary to cisplatin. He was treated with carboplatin and irinotecan from December 2023 till further progression 04/28/2024 started lubrinectidin and Mr. Maya's last scan is showing great response to treatment. CT scan on 08/27/2024 and 08/21/2024 shows great response to disease in the viscera but patient have osteoblastic lesions which according to the read have worsened. Izzy testing is now showing increase in CT DNA Patient was planned for to start on tarlatamab at [place] I will plan for topotecan pending any plan at [facility] in 10 days with Anatera results and imaging ORDERS: Order # Description [id number] MRI + Brain + With Contrast [id number] Initial PET/CT of Skull to Mid-Thigh [id number] Comprehensive Metabolic Panel - 12 + MD Follow Up 2 Week + CBC with Auto Diff RETURN TO CLINIC: I reviewed the diagnosis, prognosis, and recommended treatment/procedure options with the patient (and/or their legal vaccine customer representative), including the potential benefits, risks, side effects and alternative therapies. We also discussed the option of no treatment and the possibility of clinical trial participation, if applicable. All questions were addressed, and they demonstrated understanding. They provided informed consent to proceed with the proposed plan of care. BILLING AND COMPLIANCE: I reviewed external records from providers outside my specialty as summarized above. I spent a total of 50 minutes on this patient?s care on the day of their visit excluding time spent related to any billed procedures. This time includes time spent with the patient as well as time spent documenting in the medical record, reviewing patients records and tests, obtaining history, placing orders, communicating with other healthcare professionals, counseling the patient, family or caregiver, and/or care coordination for the diagnoses above. Electronically Signed by: {Object.Sanct_ID*PnP.NameFL@M}, {Object.Sanct_ID*PnP.Suffix@U} D: {Object.Sanct_Date} T: {Object.Sanct_Time} CC: PCP: Guy Ramon Referring: Guy Ramon This document was completed utilizing speech recognition software. Grammatical errors, random word insertions, pronoun errors, and incomplete sentences are an occasional consequence of this system due to software limitations, ambient noise, and hardware issues. Any formal questions or concerns about the content, text or information contained within the body of this dictation should be directly addressed to the provider for clarification.
[2025-01-27 11:32] LABS: Basophils # (Auto) 0.0 Thou/mm3 (0.0-0.2); Basophils % (Auto) 0 % (0-2.5); Eosinophils # (Auto) 0.1 Thou/mm3 (0.0-0.5); Eosinophils % (Auto) 1 % (0-10); Immature Granulocytes Auto 0.13 Thou/mm3 (0.00-0.00); Lymphocytes # (Auto) 1.4 Thou/mm3 (1.0-4.8); Lymphocytes % (Auto) 15 % (10-50); Mean Corpuscular HGB Conc 33.5 g/dl (31.0-37.0); Mean Corpuscular Hemoglobin 32.3 pg (25.0-35.0); Mean Corpuscular Volume 96 fL (80-100); Monocytes # (Auto) 1.3 Thou/mm3 (0.0-0.8); Monocytes % (Auto) 14 % (0-12); Neutrophils # (Auto) 6.6 Thou/mm3 (1.8-7.7); Neutrophils % (Auto) 70 % (37-80); Nucleated Red Blood Cell # 0.02 Thou/mm3 (0.00-0.00); Nucleated Red Blood Cell % 0 /100 WBC (0); Platelet Count 78 Thou/mm3 (140-440); RDW Standard Deviation 91.3 fL (35.1-43.9); Red Blood Count 1.95 Miln/mm3 (4.50-5.90); White Blood Count 9.5 Thou/mm3 (3.8-10.6)
[2025-01-27 11:34] LABS: Hematocrit 18.8 % (41.0-53.0); Hemoglobin 6.3 g/dL (13.5-16.0)
[2025-01-27 11:39] LABS: Slide Review Platelets confirmed
[2025-01-27 11:41] LABS: Chloride 104 mMol/L (98-107); Potassium 4.6 mMol/L (3.4-5.1); Sodium 134 mMol/L (136-145)
[2025-01-27 11:42] LABS: Alanine Aminotransferase 70 U/L (10-49); Albumin, Serum 3.7 gm/dL (3.4-4.8); Albumin/Globulin Ratio 1.3 (1.2-2.2); Alkaline Phosphatase 624 U/L (46-116); Anion Gap 16 (7-16); Aspartate Amino Transferase 105 U/L (0-34); BUN/Creatinine Ratio 26 Ratio (12-20); Bilirubin,Total 6.9 mg/dL (0.3-1.2); Blood Urea Nitrogen 66 mg/dL (9-23); Calcium 8.8 mg/dL (8.3-10.6); Calcium (Corrected) 9.0 mg/dL (8.5-10.1); Creatinine (Component) 2.5 mg/dL (0.6-1.3); Globulin 2.9 gm/dL (2.3-3.5); Glucose 168 mg/dL (74-106); Osmolality,Calculated 291 (275-295); Total Protein 6.6 gm/dL (5.7-8.2); eGFR 28 See Note
[2025-01-27 12:01] LABS: Carbon Dioxide 14.5 mMol/L (20.0-31.0)
--- NOTE | 2025-01-30 21:45 | CTCCONSULT_ITS ---
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 DATE OF DIAGNOSIS: 10/11/2022 as limited stage small cell lung cancer July 2023 advanced stage lung cancer STAGE/TNM: TREATMENT HISTORY: Care?Plan Start?Date Cycle Day Intent CISplatin?75?mg/m*2,?Etoposide?with?XRT?for?limited?small?cell?lung?ca 01/01/2023 1 21 Curative?(primary) carboplatin?and?irinotecan 12/15/2023 1 28 Palliative zometa?q?30?days,?q?90?days?for?bone?mets 12/15/2023 1 90 Palliative Lurbinectedin 04/28/2024 1 21 Palliative TOPotecan?1.5mg/m*2?small?cell?lung 01/16/2025 1 21 Palliative HISTORY OF PRESENT ILLNESS: 64-year-old male Danish speaking male followed by his family with him in the clinic. Patient's brother and son access lift builder whole for him. Patient was recently admitted with community-acquired pneumonia and was discharged to the rehab. Patient during that. Not on any chemotherapy. Patient comes in with family to review Izzy as well as to make further treatment planning. OTHER MEDICAL HISTORY/CONDITIONS: Small cell lung cancer - recently diagnosed Denies FAMILY HISTORY: Father:?2006?LUNG?CANCER,??2009 Sibling:?SISTER?BREAST?CA Cancer History:?PATERNAL UNCLE, PROSTATE CA SOCIAL HISTORY: Occupational?History:?RETIRED Education?Level:?College Graduate, 2 year degree Marital?Status:? Tobacco?Pack?per?Day:?1 Tobacco?Use?Years:?45 Tobacco?Use:?STOPPED?3?MO?AGO ETOH?Use:?SOCIAL?DRINKER Drug?Note:?Denies Social?History?Note:?Lives?with?son MEDICATIONS: 1. dexamethasone - 4 mg 2 tab daily for 2 days after each chemotherapy 2. morphine - 30 mg 1 Capsule three times a day 3. ondansetron HCl - 8 mg 1 tab every 8 hours as needed for nausea Medications Last Reconciled by Makenna Roldan MD on 01/27/2025 ALLERGIES: No Known Drug Allergies REVIEW OF SYSTEMS: A complete 14-point review of systems was performed and is negative except as noted in interval history. PHYSICAL EXAMINATION: VITAL SIGNS: PAIN: 0 - No pain GENERAL APPEARANCE: Appears well, in no apparent distress, appropriately interactive. HEENT: Normocephalic, no temporal wasting, normal conjunctiva, no scleral icterus, normal hearing, lips without lesions, neck normal range of motion. CARDIOVASCULAR: Not assessed. PULMONARY: Normal respiratory effort, no respiratory distress or use of accessory muscles, speaking in full sentences, no tachypnea. EXTREMITIES: No pedal edema or cyanosis. SKIN: Normal skin appearance. NEUROLOGIC: Alert and oriented x4. PSHYCHIATRIC: Appropriate affect, mood normal, behavior normal, intact thought and speech. LABORATORY DATA: I have personally reviewed and interpreted each of the patient?s relevant lab tests, abnormal findings are below: Date 12/22/24 01/14/25 ??WHITE?BLOOD?COUNT?(Thou/mm3) 3.9 8.7 ??RED?BLOOD?COUNT?(Miln/mm3) 2.18?L 3.15?L ??HEMOGLOBIN?(gm/dl) 6.5?LL 9.6?L ??HEMATOCRIT?(%) 20.0?LL 29.5?L ??PLATELET?COUNT?(Thou/mm3) 42?L 124?L ??NEUTROPHILS?%,?AUTO?(%) 39 54 ??LYMPH?%,?AUTO?(%) 24 30 ??NEUTROPHILS,?AUTO?(Thou/mm3) 1.5?L 4.7 ??GLUCOSE,RANDOM?(mg/dL) 101 99 ??BLOOD?UREA?NITROGEN?(mg/dL) 14 35?H ??CREATININE?(mg/dL) 1.20 1.40?H ??SODIUM?(mmol/L) 139 136 ??POTASSIUM?(mmol/L) 4.3 4.6 ??CHLORIDE?(mmol/L) 108?H 103 ??CrCl?(CandG)?(ml/min) 66.31 49.59 ??AST/SGOT?(Unit/L) 34 99?H ??ALT/SGPT?(Unit/L) 17 89?H ??ALKALINE?PHOSPHATASE?(Unit/L) 217?H 658?H ??BILIRUBIN,?TOTAL?(mg/dL) 0.9 1.5?H ??PROTEIN?TOTAL?(gm/dl) 5.9 8.5?H ??ALBUMIN,?SERUM?(gm/dl) 3.3?L 4.5 ??GLOBULIN?(gm/dl) 2.6 4.0?H ??ALBUMIN/GLOBULIN?RATIO 1.3 1.1?L ??CALCIUM,?SERUM?(mg/dL) 8.6 10.1 ??CALCIUM?SERUM?(CORRECTED)?(mg/dL) 9.2 10.1 ASSESSMENT/PLAN: advanced stage small cell lung cancer Patient has been treated with [employer] [place] doublet with radiation followed by carboplatinum irinotecan and lurbinectedin Patient did not receive immunotherapy at the time of recurrence Patient is having progression with elevated CT DNA and Anatera as well as losing weight I will start patient on chemotherapy with the topotecan Patient and family understand patient has very poor function and cancer is progressing Antibody conjugate recommended by [place] could not be started as patient have hard time traveling to [place] Will start topotecan JANEY Blood transfusion and oxygen supplementation as needed Patient is acidotic and likely retaining carbon dioxide Will place on oxygen and replace electrolytes and transfuse him Family do not want to go to the emergency room at this time Once transfusion is complete advised nurses to take Mr. Maya to the emergency room for bicarbonate infusion RTC on Friday for chemotherapy ORDERS: Order # Description [id number] Follow Up Appointment [id number] Follow Up Appointment [id number] Follow Up Appointment [id number] Follow Up Appointment [id number] Follow Up Appointment [id number] Follow Up Appointment RETURN TO CLINIC: I reviewed the diagnosis, prognosis, and recommended treatment/procedure options with the patient (and/or their legal enrollment eligibility representative), including the potential benefits, risks, side effects and alternative therapies. We also discussed the option of no treatment and the possibility of clinical trial participation, if applicable. All questions were addressed, and they demonstrated understanding. They provided informed consent to proceed with the proposed plan of care. BILLING AND COMPLIANCE: I reviewed external records from providers outside my specialty as summarized above. I spent a total of 50 minutes on this patient?s care on the day of their visit excluding time spent related to any billed procedures. This time includes time spent with the patient as well as time spent documenting in the medical record, reviewing patients records and tests, obtaining history, placing orders, communicating with other healthcare professionals, counseling the patient, family or caregiver, and/or care coordination for the diagnoses above. Electronically Signed by: Rizwan Rutledge MD T: 9:43 PM CC: PCP: Guy Ramon Referring: Guy Ramon This document was completed utilizing speech recognition software. Grammatical errors, random word insertions, pronoun errors, and incomplete sentences are an occasional consequence of this system due to software limitations, ambient noise, and hardware issues. Any formal questions or concerns about the content, text or information contained within the body of this dictation should be directly addressed to the provider for clarification.
[2025-01-31 11:57] LABS: Basophils # (Auto) 0.1 Thou/mm3 (0.0-0.2); Basophils % (Auto) 1 % (0-2.5); Eosinophils # (Auto) 0.2 Thou/mm3 (0.0-0.5); Eosinophils % (Auto) 2 % (0-10); Hematocrit 29.9 % (41.0-53.0); Hemoglobin 9.6 g/dL (13.5-16.0); Immature Granulocytes Auto 0.32 Thou/mm3 (0.00-0.00); Lymphocytes # (Auto) 3.4 Thou/mm3 (1.0-4.8); Lymphocytes % (Auto) 28 % (10-50); Mean Corpuscular HGB Conc 32.1 g/dl (31.0-37.0); Mean Corpuscular Hemoglobin 30.1 pg (25.0-35.0); Mean Corpuscular Volume 94 fL (80-100); Monocytes # (Auto) 1.3 Thou/mm3 (0.0-0.8); Monocytes % (Auto) 11 % (0-12); Neutrophils # (Auto) 6.7 Thou/mm3 (1.8-7.7); Neutrophils % (Auto) 56 % (37-80); Nucleated Red Blood Cell # 0.05 Thou/mm3 (0.00-0.00); Nucleated Red Blood Cell % 0 /100 WBC (0); Platelet Count 77 Thou/mm3 (140-440); RDW Standard Deviation 90.3 fL (35.1-43.9); Red Blood Count 3.19 Miln/mm3 (4.50-5.90); White Blood Count 12.0 Thou/mm3 (3.8-10.6)
[2025-01-31 12:21] LABS: Alanine Aminotransferase 75 U/L (10-49); Albumin, Serum 3.7 gm/dL (3.4-4.8); Albumin/Globulin Ratio 1.1 (1.2-2.2); Alkaline Phosphatase 664 U/L (46-116); Anion Gap 16 (7-16); Aspartate Amino Transferase 143 U/L (0-34); BUN/Creatinine Ratio 27 Ratio (12-20); Bilirubin,Total 10.6 mg/dL (0.3-1.2); Blood Urea Nitrogen 97 mg/dL (9-23); Calcium 10.0 mg/dL (8.3-10.6); Calcium (Corrected) 10.2 mg/dL (8.5-10.1); Chloride 112 mMol/L (98-107); Creatinine (Component) 3.6 mg/dL (0.6-1.3); Globulin 3.5 gm/dL (2.3-3.5); Glucose 139 mg/dL (74-106); Osmolality,Calculated 315 (275-295); Potassium 5.4 mMol/L (3.4-5.1); Sodium 142 mMol/L (136-145); Total Protein 7.2 gm/dL (5.7-8.2); eGFR 18 See Note
[2025-01-31 12:23] LABS: Carbon Dioxide 13.8 mMol/L (20.0-31.0)
[2025-01-31 12:43] LABS: Slide Review Platelets confirmed
== END 2025-02-04 23:59 | disposition home or self-care (01) ==
LOC: SCTC 11:16
PROVIDERS: PCP Family Medicine; Referring Provider Family Medicine; Visit Provider Internal Medicine Hematology & Oncology
DX: C34.90 Malignant neoplasm of unspecified part of unspecified bronchus or lung (principal); C79.51 Secondary malignant neoplasm of bone; Z87.891 Personal history of nicotine dependence; Z92.3 Personal history of irradiation; Z92.21 Personal history of antineoplastic chemotherapy
CPT/HCPCS: 36415; 36430; 80053; 85025; 86850; 86900; 86901; 86923; 99212; 99213; J1100; J1434; J2405; J3490; P9016; G0463

== ENCOUNTER 2025-02-01 20:54 | Inpatient (IN) | payer MEDICAID, SELFPAY ==
[2025-02-01] VITALS (12 sets, daily range): BP systolic 86–114; BP diastolic 59–70; PULSE 140–163; RESP 18–37; TEMP 37.4–39.4; O2SAT 92–99; BMI 25.0
[2025-02-01] MEDS: ETOMIDATE INJ 2 MG/ML VIAL 10 ML 10 MG IVP (21:02)
[2025-02-01] MEDS: ROCURONIUM INJ 10 MG/ML VIAL 10 ML 70 MG IV (21:06)
[2025-02-01] MEDS: SODIUM CHLORIDE 0.9% 1000 ML 1,000 ML 999 ML IV ×2 (21:07→23:52)
[2025-02-01 21:09] LABS: Lactate (Lactic Acid) 2.1 mMol/L (0.4-2.0)
--- NOTE | 2025-02-01 21:09 | EDNOTE_ITS ---
Altered Mental Status RME/HPI General Chief Complaint: Altered Mental Status Stated Complaint: AMS Time Seen by Provider: 02/01/25 21:12 Arrival date/time: 02/01/25 20:54 RME / HPI RME / HPI narrative: DR. GAMEZ MAIN ED EVALUATION: Patient with Hx of Bronchiogenic Carinoma recently seen by Oncologist who opted to discontinue any therapy reportedly with AMS since 4 PM today. Patient hypoxic with oxygen saturations in the 80% noted to be in moderate to severe respiratory distress with audible rales and reported SVT. Hx limited and primarily provided by paramedics. Patient with reported tactile temperature, although no vomiting or diarrhea reported. PMH: Lung CA, Advanced Cirrhotic Liver Disease, Anemia PSH: Unknown Allergies: None Social: Unknown Related Data Home Medications ?Medication ?Instructions ?Recorded ?Confirmed gabapentin 100 mg capsule 100 mg PO BID PRN neuromuscu lar 02/02/25 02/02/25 blockade midodrine 10 mg tablet 10 mg PO Q8HR PRN blood pres sure 02/02/25 02/02/25 morphine 30 mg tablet,extended 30 mg PO TID PRN pain ( scale score 02/02/25 02/02/25 release 7-10) Allergies Allergy/AdvReac Type Severity Reaction Status Date / Time No Known Allergies Allergy Verified 02/01/25 21:09 Review of Systems Review of Systems Systems Reviewed: All systems reviewed, normal except as documented Past Medical History Past Medical History GASTROINTESTINAL: Positive Cirrhosis HEMATOLOGIC: Positive Anemia OTHER HISTORY: Positive Lung Cancer ED Exam Narrative Physical exam: GEN. APPEARANCE: The patient is chronically ill-appearing in moderate to sever respiratory distress with audible rales. Unresponsive to both tactile and verbal stimuli with vacant stare. VITALS: All vitals were reviewed and the pulse ox is 95%, which is normal according to my interpretation HEENT: Normocephalic, atraumatic and nontender. Pupils are mildly dilated and reactive. Oropharynx with dried blood. NECK: Supple, nontender, no meningismus, positive JVD. There is no thyromegaly and no lymphadenopathy. CHEST: Nontender on palpation no deformity and no crepitus. CARDIOVASCULAR: Tachycardic, no murmur or gallop rub or extra beats. LUNGS: Diminished breath sounds. No laboring tachypnea or wheezing. No intercostal subcostal retraction. No rhonchi. ABDOMEN: Soft, mildly distended, positive fluid wave, nontender to palpation, no guarding or rebound tenderness. There are no abnormal masses palpated. No pulsatile masses or bruits. Active and normal bowel sounds. EXTREMITIES: Normal inspection and palpation. 1+ edema. No cyanosis. Patient is able to move all 4 extremities well SKIN: Warm and dry, no rashes noted. Jaundiced. MUSCULOSKELETAL: No lumbar or midline bony tenderness. There is no CVA tenderness. No paraspinal muscle spasm or tenderness. NEURO: Cranial nerves II through XII grossly intact. There are no focal anastacia rologic deficits noted. GCS is 15 PSYCHIATRIC: Patient is in normal mood and affect, cooperative. LYMPHATICS: No major lymphadenopathy noted. Course Course Course Narrative: Sepsis alert initiated. Orders made at this time are congruent with ED Adult Sepsis Order List. Re-evaluation is to be completed. Quality Measures Current suspected stage: sepsis Possible source: pulmonary and GI tract/intra- abdominal Blood cultures ordered: yes Antibiotic ordered: Yes Pertinent labs: 02/01/25 02/02/25 20:59 00:13 Lactic Acid 2.1 H mMol/L 1.6 mMol/L (0.4-2.0) (0.4-2.0) Procalcitonin 165.61 H ng/ml (0.0-0.49) sepsis Orders Category Date Time Status 24 HR Medical Restraints Q2HR Care 02/01/25 23:00 Completed Lactation Consultant STAT Care 02/01/25 21:13 Active Continuous Pulse Oximetry STAT Care 02/01/25 21:13 Completed EKG (ED ONLY) *Do not use* NOW Care 02/01/25 21:13 Completed Zhao [Urinary Catheter] QS Care 02/01/25 21:03 Active Insert IV NOW Care 02/01/25 21:13 Completed Intubation NOW Care 02/01/25 22:38 Completed NPO STAT Care 02/01/25 21:13 Completed Strict Intake and Output Routine Care 02/01/25 21:13 Ordered EKG (ED Only) Stat Exams 02/01/25 21:13 Ordered XR chest 1V post procedure Stat Exams 02/01/25 21:30 Completed ABG [Arterial Blood Gas] Stat Lab 02/01/25 23:06 Completed Ammonia Stat Lab 02/01/25 22:17 Completed Arterial Blood Gas Stat Lab 02/01/25 21:24 Completed BNP [B-Type Natriuretic Peptide] Stat Lab 02/01/25 20:59 Completed Blood Culture (Lab) Stat Lab 02/01/25 20:59 Results CBC Stat Lab 02/01/25 20:59 Completed CMP [Comprehensive Metabolic Panel] Stat Lab 02/01/25 20:59 Completed D-Dimer Stat Lab 02/01/25 22:17 Completed LDH (Lactate Dehydrogenase) Stat Lab 02/01/25 20:59 Completed Lactate (Lactic Acid) Stat Lab 02/01/25 20:59 Completed Lactic Acid, 3 HR Stat Lab 02/02/25 00:13 Completed Lipase Stat Lab 02/01/25 20:59 Completed Magnesium Stat Lab 02/01/25 20:59 Completed Magnesium Stat Lab 02/01/25 20:59 Completed Partial Thromboplastin Time Stat Lab 02/01/25 20:59 Completed Phosphorous Stat Lab 02/01/25 20:59 Completed Procalcitonin Stat Lab 02/01/25 20:59 Completed Prothrombin Time with INR Stat Lab 02/01/25 20:59 Completed Sputum Culture and Gram Stain Routine Lab 02/01/25 22:06 Results Troponin I Stat Lab 02/01/25 20:59 Completed Troponin I Stat Lab 02/01/25 20:59 Completed Urinalysis, C/S if Indicated Stat Lab 02/01/25 21:20 Completed ALBUTEROL RT 3ml [Proventil Rt 3ml] Med 02/01/25 22:10 Discontinued 10 mg HHN X1 ONE Acetaminophen Supp [Tylenol Supp] Med 02/01/25 21:15 Discontinued 975 mg IN X1 ONE Adenosine 6mg Inj [Adenocard Inj] Med 02/01/25 21:09 Discontinued 6 mg IVP X1 ONE Etomidate Inj [Amidate Inj] Med 02/01/25 20:56 Discontinued 10 mg IVP X1 ONE Midazolam/Ns 100 mg Ivpb [Versed Pf Inj in Ns Premix] Med 02/01/25 21:18 Discontinued 100 mg in 100 ml IV 1 mg/hr Ondansetron Inj [Zofran Inj] Med 02/01/25 21:13 Active 4 mg IVP Q6HR PRN Piper/Tazo 3.375 gm Premix [Zosyn] Med 02/01/25 21:13 Discontinued 3.375 gm in 50 ml IV X1 Ringers Lactated 1000 ml [Lactated Ringers] 1,000 ml Med 02/01/25 21:13 Discontinued IV 999 mls/hr Rocuronium Inj [Zemuron Inj] Med 02/01/25 20:56 Discontinued 70 mg IV X1 ONE Sodium Bicarb 8.4% 50ml Vial* Med 02/01/25 21:50 Discontinued 100 meq IV X1 ONE Sodium Chloride 0.9% 1000 ml [Ns] 1,000 ml Med 02/01/25 21:00 Discontinued IV 999 mls/hr Sodium Chloride 0.9% 1000 ml [Ns] 1,000 ml Med 02/01/25 23:47 Discontinued IV 999 mls/hr Sodium Chloride Rt Maryann 10% [NS Rt Maryann 10%] Med 02/01/25 22:04 Discontinued 5 ml INH X1 ONE fentaNYL 2,500 MCG/250 ML BAG [Sublimaze Inj 2,500 MCG/ Med 02/01/25 21:21 Discontinued 250 ML BAG] 2,500 mcg in 250 ml IV 25 mcg/hr Mechanical [Volume Ventilator] Stat RT 02/01/25 Active Oxygen Delivery NOW RT 02/01/25 21:13 Active Vital Signs Vital signs: Vital Signs Temperature 102.9 F H 02/01/25 21:05 Pulse Rate 149 H 02/01/25 21:05 Respiratory Rate 37 H 02/01/25 21:05 Blood Pressure 86/59 L 02/01/25 21:05 Pulse Oximetry (%) 96 02/01/25 21:05 Oxygen Delivery Method Ambu-Bag 02/01/25 21:05 Altered Mental Status MDM Narrative MDM Narrative:: Scribe Attestation: Julia Hernandez, am scribing for and in the presence of Dr. Gamez. Provider Notation: Although this document has been carefully reviewed, there may still be some phonetic and other typographical errors. These errors are purely grammatical due to imperfections in the software program and should not be construed in any way to compromise the substance of the patient's medical care during this visit. Patient with Hx of Bronchiogenic Carinoma recently seen by Oncologist who opted to discontinue any therapy reportedly with AMS since 4 PM today. Patient hypoxic with oxygen saturations in the 80% noted to be in moderate to severe respiratory distress with audible rales and reported SVT. Please see PE findings. La boratory markers demonstrated marginally elevated WBC of 11.9, H&H of 9.5/29.8, and Platelet Count of 106. Serum chemistries remarkable for markedly low Potassium of 6.1, CO2 of 14.6, Creatinine of 4.6, BUN of 113, consistent with acute renal failure. Lactic Acid marginally elevated and Total Bilirubin markedly elevated at 11.9, Serum Ammonia of 92, Procalcitonin of 165. UA without evidence of infection. Patient immediate triaged to [facility] intub shortly after arrival for prot notably tachy at 160 with BP in 80's systolic range. Patient was hydrated aggressively with gradual reduction in HR and stabilization of BP. Dual-ABX administered. CXR without definite infiltrate. Case discussed with family and hospice is being considered. Will contact hospitalist for admission. Final diagnoses include acute hypoxic respiratory failure, acute septic shock, hepatic encephalopathy, and acute renal failure. Patient data External records reviewed:: [facility] previous records (Reviewed prior ED records from 12/23/24. Patient was seen for Anemia.) and EMS form Clinical information provided by:: EMS Social determinants that could affect healthcare access:: none Patient has the following chronic illnesses:: Cirrhosis, Anemia, Lung Cancer How is presenting disease/condition affected by chronic disease/condition?: exacerbated by Evaluation data The following diagnostics were reviewed and interpreted by me:: lab results and radiology exam(s) Lab and/or radiology exams considered but not ordered:: None Interpretation Summary: RADIOLOGY Chest X-Ray: FINDINGS: Normal heart size Pneumonia right base Fairly diffuse left lung pneumonia with left apical pleural disease Endotracheal tube tip 22 mm above gaudencio Prominent osteopenia IMPRESSION: Significant bilateral pneumonia Medications / Prescriptions Medications or Prescriptions considered but not ordered:: None Medication administrations:: Medication Administration History Allopurinol (Allopurinol 100 Mg Tablet) 300 mg GT BID ARI Stop: 03/04/25 01:59 Last Admin: 02/02/25 20:55 Dose: 300 mg Documented By: Admin: 02/02/25 10:00 Dose: Not Given Documented By: MR Non-Admin Reason: procedure being done not in pyxis Comments: Wasiq ok to hold to pm dose Admin: 02/02/25 02:14 Dose: 300 mg Documented By: ROBLES Heparin Sodium (Porcine) (Heparin Sod Inj 1000 Unit/Ml Vial 10 Ml) 3,000 unit INDWELLCAT PRN PRN PRN Reason: DIALYSIS Stop: 02/16/25 09:23 Last Admin: 02/02/25 09:49 Dose: 3,000 unit Documented By: MR Co-signed By: ANA Hydrocortisone Sodium Succinate (Hydrocortisone Sod Succ Inj 100 Mg 2 Ml Vial) 50 mg IV Q6HR ARI Stop: 03/04/25 17:59 Last Admin: 02/02/25 23:44 Dose: 50 mg Documented By: Admin: 02/02/25 17:33 Dose: 50 mg Documented By: ANA Norepinephrine/Dextrose (Levophed In D5w 8mg/250ml) 8 mg in 250 mls @ 6.797 mls/hr IV .Q24H PRN; Protocol PRN Reason: PER PROTOCOL Stop: 03/04/25 04:05 Last Titration: 02/02/25 19:23 Dose: Infused Documented By: Titration: 02/02/25 19:00 Dose: 0.37 mcg/kg/min, 50.297 mls/hr Documented By: Titration: 02/02/25 18:42 Dose: 0.37 mcg/kg/min, 50.297 mls/hr Documented By: Titration: 02/02/25 18:24 Dose: 0.35 mcg/kg/min, 47.578 mls/hr Documented By: Titration: 02/02/25 18:20 Dose: 0.35 mcg/kg/min, 47.578 mls/hr Documented By: Titration: 02/02/25 18:00 Dose: 0.33 mcg/kg/min, 44.859 mls/hr Documented By: Titration: 02/02/25 17:36 Dose: 0.33 mcg/kg/min, 44.859 mls/hr Documented By: Titration: 02/02/25 17:00 Dose: 0.31 mcg/kg/min, 42.141 mls/hr Documented By: Titration: 02/02/25 16:00 Dose: 0.31 mcg/kg/min, 42.141 mls/hr Documented By: Titration: 02/02/25 15:00 Dose: 0.31 mcg/kg/min, 42.141 mls/hr Documented By: Titration: 02/02/25 14:36 Dose: 0.31 mcg/kg/min, 42.141 mls/hr Documented By: Titration: 02/02/25 14:00 Dose: 0.29 mcg/kg/min, 39.422 mls/hr Documented By: Admin: 02/02/25 13:27 Dose: 0.29 mcg/kg/min, 39.422 mls/hr Documented By: Titration: 02/02/25 13:27 Dose: Infused Documented By: Titration: 02/02/25 13:00 Dose: 0.29 mcg/kg/min, 39.422 mls/hr Documented By: Titration: 02/02/25 13:00 Dose: 0.29 mcg/kg/min, 39.422 mls/hr Documented By: Titration: 02/02/25 13:00 Dose: 0.29 mcg/kg/min, 39.422 mls/hr Documented By: Titration: 02/02/25 12:00 Dose: 0.29 mcg/kg/min, 39.422 mls/hr Documented By: Titration: 02/02/25 11:58 Dose: 0.29 mcg/kg/min, 39.422 mls/hr Documented By: Titration: 02/02/25 11:30 Dose: 0.27 mcg/kg/min, 36.703 mls/hr Documented By: Titration: 02/02/25 11:00 Dose: 0.25 mcg/kg/min, 33.984 mls/hr Documented By: Titration: 02/02/25 10:00 Dose: 0.25 mcg/kg/min, 33.984 mls/hr Documented By: Titration: 02/02/25 09:00 Dose: 0.25 mcg/kg/min, 33.984 mls/hr Documented By: Titration: 02/02/25 08:25 Dose: 0.25 mcg/kg/min, 33.984 mls/hr Documented By: Titration: 02/02/25 08:10 Dose: 0.23 mcg/kg/min, 31.266 mls/hr Documented By: Titration: 02/02/25 08:00 Dose: 0.21 mcg/kg/min, 28.547 mls/hr Documented By: Titration: 02/02/25 07:45 Dose: 0.19 mcg/kg/min, 25.828 mls/hr Documented By: Titration: 02/02/25 07:34 Dose: 0.17 mcg/kg/min, 23.109 mls/hr Documented By: Titration: 02/02/25 07:27 Dose: 0.15 mcg/kg/min, 20.391 mls/hr Documented By: Titration: 02/02/25 07:00 Dose: 0.13 mcg/kg/min, 17.672 mls/hr Documented By: Titration: 02/02/25 06:00 Dose: 0.11 mcg/kg/min, 14.953 mls/hr Documented By: Titration: 02/02/25 05:00 Dose: 0.11 mcg/kg/min, 14.953 mls/hr Documented By: Titration: 02/02/25 04:40 Dose: 0.11 mcg/kg/min, 14.953 mls/hr Documented By: Titration: 02/02/25 04:25 Dose: 0.09 mcg/kg/min, 12.234 mls/hr Documented By: Titration: 02/02/25 04:15 Dose: 0.07 mcg/kg/min, 9.516 mls/hr Documented By: Admin: 02/02/25 03:57 Dose: 0.05 mcg/kg/min, 6.797 mls/hr Documented By: HV Cefepime HCl 1 gm/ Sodium (Chloride) 50 mls @ 100 mls/hr IV QDAY [facility] Stop: 02/10/25 08:59 Propofol (Diprivan Ivpb) 1,000 mg in 100 mls @ 2.175 mls/hr IV .Q24H PRN; Protocol PRN Reason: PER PROTOCOL Stop: 03/04/25 11:20 Fentanyl Citrate (Sublimaze Inj 2,500 Mcg/250 Ml Bag) 2,500 mcg in 250 mls @ 2.5 mls/hr IV .Q24H PRN; Protocol PRN Reason: PER PROTOCOL Stop: 02/06/25 21:20 Last Titration: 02/03/25 05:00 Dose: 225 mcg/hr, 22.5 mls/hr Documented By: Titration: 02/03/25 04:00 Dose: 175 mcg/hr, 17.5 mls/hr Documented By: Titration: 02/03/25 03:00 Dose: 175 mcg/hr, 17.5 mls/hr Documented By: Titration: 02/03/25 02:00 Dose: 175 mcg/hr, 17.5 mls/hr Documented By: Admin: 02/03/25 01:36 Dose: 175 mcg/hr, 17.5 mls/hr Documented By: AD Co-signed By: GREGORIAN Titration: 02/03/25 01:36 Dose: Infused Documented By: AD Co-signed By: CMN Titration: 02/03/25 01:00 Dose: 175 mcg/hr, 17.5 mls/hr Documented By: Titration: 02/03/25 00:00 Dose: 175 mcg/hr, 17.5 mls/hr Documented By: Titration: 02/02/25 23:00 Dose: 175 mcg/hr, 17.5 mls/hr Documented By: Titration: 02/02/25 22:00 Dose: 175 mcg/hr, 17.5 mls/hr Documented By: Titration: 02/02/25 21:00 Dose: 175 mcg/hr, 17.5 mls/hr Documented By: Titration: 02/02/25 20:00 Dose: 175 mcg/hr, 17.5 mls/hr Documented By: Titration: 02/02/25 19:00 Dose: 175 mcg/hr, 17.5 mls/hr Documented By: Titration: 02/02/25 18:00 Dose: 175 mcg/hr, 17.5 mls/hr Documented By: Titration: 02/02/25 17:00 Dose: 175 mcg/hr, 17.5 mls/hr Documented By: Titration: 02/02/25 16:39 Dose: 175 mcg/hr, 17.5 mls/hr Documented By: Titration: 02/02/25 16:00 Dose: 225 mcg/hr, 22.5 mls/hr Documented By: Titration: 02/02/25 15:00 Dose: 225 mcg/hr, 22.5 mls/hr Documented By: Titration: 02/02/25 14:00 Dose: 225 mcg/hr, 22.5 mls/hr Documented By: Admin: 02/02/25 13:43 Dose: 225 mcg/hr, 22.5 mls/hr Documented By: CR Co-signed By: Vasopressin/Sodium Chloride (Vasostrict/Ns Ivpb) 20 unit in 100 mls @ 9 mls/hr IV .Q11H7M PRN; Protocol PRN Reason: PER PROTOCOL Stop: 03/04/25 11:33 Last Admin: 02/02/25 20:11 Dose: 0.03 unit/min, 9 mls/hr Documented By: Titration: 02/02/25 20:11 Dose: Infused Documented By: Admin: 02/02/25 11:51 Dose: 0.03 unit/min, 9 mls/hr Documented By: CR Norepinephrine Bitartrate (Levophed In Ns 16mg/250ml) 16 mg in 250 mls @ 3.398 mls/hr IV .Q24H PRN; Protocol PRN Reason: PER PROTOCOL Stop: 03/04/25 19:04 Last Titration: 02/03/25 05:00 Dose: 0.15 mcg/kg/min, 10.195 mls/hr Documented By: Titration: 02/03/25 04:00 Dose: 0.15 mcg/kg/min, 10.195 mls/hr Documented By: Titration: 02/03/25 03:00 Dose: 0.15 mcg/kg/min, 10.195 mls/hr Documented By: Titration: 02/03/25 02:00 Dose: 0.15 mcg/kg/min, 10.195 mls/hr Documented By: Titration: 02/03/25 01:47 Dose: 0.15 mcg/kg/min, 10.195 mls/hr Documented By: Titration: 02/03/25 01:00 Dose: 0.13 mcg/kg/min, 8.836 mls/hr Documented By: Titration: 02/03/25 00:00 Dose: 0.15 mcg/kg/min, 10.195 mls/hr Documented By: Titration: 02/02/25 23:00 Dose: 0.15 mcg/kg/min, 10.195 mls/hr Documented By: Titration: 02/02/25 22:30 Dose: 0.17 mcg/kg/min, 11.555 mls/hr Documented By: Titration: 02/02/25 22:00 Dose: 0.19 mcg/kg/min, 12.914 mls/hr Documented By: Titration: 02/02/25 21:49 Dose: 0.21 mcg/kg/min, 14.273 mls/hr Documented By: Titration: 02/02/25 21:21 Dose: 0.23 mcg/kg/min, 15.633 mls/hr Documented By: Titration: 02/02/25 21:09 Dose: 0.25 mcg/kg/min, 16.992 mls/hr Documented By: Titration: 02/02/25 21:00 Dose: 0.27 mcg/kg/min, 18.352 mls/hr Documented By: Titration: 02/02/25 20:51 Dose: 0.29 mcg/kg/min, 19.711 mls/hr Documented By: Titration: 02/02/25 20:42 Dose: 0.31 mcg/kg/min, 21.07 mls/hr Documented By: Titration: 02/02/25 20:30 Dose: 0.33 mcg/kg/min, 22.43 mls/hr Documented By: Titration: 02/02/25 20:00 Dose: 0.35 mcg/kg/min, 23.789 mls/hr Documented By: Titration: 02/02/25 19:50 Dose: 0.35 mcg/kg/min, 23.789 mls/hr Documented By: Admin: 02/02/25 19:24 Dose: 0.37 mcg/kg/min, 25.148 mls/hr Documented By: AD Lactulose (Lactulose Syrup 20 Gm/30 Ml Udc) 20 gm NG QID [facility]; Protocol Stop: 03/04/25 00:29 Last Admin: 02/02/25 20:55 Dose: 20 gm Documented By: Admin: 02/02/25 17:33 Dose: 20 gm Documented By: Admin: 02/02/25 13:30 Dose: 20 gm Documented By: Admin: 02/02/25 05:49 Dose: 20 gm Documented By: Admin: 02/02/25 01:51 Dose: 20 gm Documented By: ROBLES Ondansetron HCl (Ondansetron Inj 2 Mg/Ml Inj 2 Ml) 4 mg IVP Q6HR PRN PRN Reason: NAUSEA OR VOMITING Stop: 03/03/25 21:12 Pantoprazole Sodium (Pantoprazole Inj 40 Mg Vial) 40 mg IVP QDAY ARI Stop: 03/04/25 07:29 Last Admin: 02/02/25 10:36 Dose: 40 mg Documented By: Pharmacy Consult (Vancomycin Pharmacy To Dose 1 Each Each) 1 each IV QDAY PRN PRN Reason: RX Stop: 03/04/25 08:59 Rasburicase (Rasburicase Inj 1.5 Mg Vial (Non-Formulary)) 3 mg IV X1 ONE; Protocol Stop: 02/03/25 15:01 Discontinued Medications Acetaminophen (Acetaminophen Supp 650 Mg Supp) 975 mg IN X1 ONE Stop: 02/01/25 21:16 Last Admin: 02/01/25 21:48 Dose: 975 mg Documented By: YESSENIA Adenosine (Adenosine Inj 3 Mg/Ml Vial) 6 mg IVP X1 ONE Stop: 02/01/25 21:10 Last Admin: 02/01/25 21:19 Dose: Not Given Documented By: YESSENIA Non-Admin Reason: Discontinued Albuterol (Albuterol Rt 2.5 Mg/3 Ml Nebu) 10 mg HHN X1 ONE Stop: 02/01/25 22:11 Last Admin: 02/01/25 23:03 Dose: 10 mg Documented By: REYNA Allopurinol (Allopurinol 100 Mg Tablet) Confirm Administered Dose 300 mg .ROUTE .STK-MED ONE Stop: 02/02/25 02:14 Last Admin: 02/02/25 02:56 Dose: Not Given Documented By: ROBLES Non-Admin Reason: Override Medication Dextrose (Dextrose 50%-Water Inj 50 Ml Syringe) 50 ml IVP X1 ONE Stop: 02/02/25 00:18 Last Admin: 02/02/25 00:49 Dose: 50 ml Documented By: YESSENIA Enoxaparin Sodium (Enoxaparin Sod Inj 40 Mg/0.4 Ml Syringe) 30 mg SC QPM ARI Stop: 02/16/25 20:59 Etomidate (Etomidate Inj 2 Mg/Ml Vial 10 Ml) 10 mg IVP X1 ONE Stop: 02/01/25 20:57 Last Admin: 02/01/25 21:02 Dose: 10 mg Documented By: DT Famotidine (Famotidine Inj 10 Mg/Ml Vial 2 Ml) 20 mg IVP Q12HR ARI Stop: 03/04/25 08:59 Heparin Sodium (Porcine) (Heparin Sod Inj 1000 Unit/Ml Vial 10 Ml) 2,600 unit INDWELLCAT PRN PRN PRN Reason: DIALYSIS Stop: 02/16/25 09:23 Hydrocortisone Sodium Succinate (Hydrocortisone Sod Succ Inj 100 Mg 2 Ml Vial) 100 mg IV X1 ONE Stop: 02/02/25 14:47 Last Admin: 02/02/25 14:58 Dose: 100 mg Documented By: ANA Sodium Chloride (Ns) 1,000 mls @ 999 mls/hr IV .Q1H1M ONE Stop: 02/01/25 22:00 Last Infusion: 02/01/25 22:19 Dose: Infused Documented By: Admin: 02/01/25 21:07 Dose: 999 mls/hr Documented By: DT Lactated Ringer's (Lactated Ringers) 1,000 mls @ 999 mls/hr IV .Q1H1M ONE Stop: 02/01/25 22:13 Last Infusion: 02/01/25 22:59 Dose: Infused Documented By: Admin: 02/01/25 21:55 Dose: 999 mls/hr Documented By: YESSENIA Piperacillin/Tazobactam/Dextrose (Zosyn) 3.375 gm in 50 mls @ 100 mls/hr IV X1 ONE Stop: 02/01/25 21:42 Last Infusion: 02/01/25 22:20 Dose: Infused Documented By: Admin: 02/01/25 21:43 Dose: 100 mls/hr Documented By: YESSENIA Fentanyl Citrate (Sublimaze Inj 2,500 Mcg/250 Ml Bag) 2,500 mcg in 250 mls @ 2.5 mls/hr IV .Q24H PRN; Protocol PRN Reason: PER PROTOCOL Stop: 02/06/25 21:20 Last Titration: 02/02/25 13:43 Dose: 225 mcg/hr, 22.5 mls/hr Documented By: Titration: 02/02/25 13:00 Dose: 225 mcg/hr, 22.5 mls/hr Documented By: Titration: 02/02/25 12:00 Dose: 225 mcg/hr, 22.5 mls/hr Documented By: Titration: 02/02/25 11:00 Dose: 225 mcg/hr, 22.5 mls/hr Documented By: Titration: 02/02/25 10:00 Dose: 225 mcg/hr, 22.5 mls/hr Documented By: Titration: 02/02/25 09:00 Dose: 225 mcg/hr, 22.5 mls/hr Documented By: Titration: 02/02/25 08:00 Dose: 225 mcg/hr, 22.5 mls/hr Documented By: Titration: 02/02/25 07:45 Dose: 225 mcg/hr, 22.5 mls/hr Documented By: Titration: 02/02/25 07:00 Dose: 175 mcg/hr, 17.5 mls/hr Documented By: Titration: 02/02/25 06:00 Dose: 175 mcg/hr, 17.5 mls/hr Documented By: Titration: 02/02/25 05:00 Dose: 175 mcg/hr, 17.5 mls/hr Documented By: Titration: 02/02/25 04:00 Dose: 175 mcg/hr, 17.5 mls/hr Documented By: Titration: 02/02/25 03:00 Dose: 175 mcg/hr, 17.5 mls/hr Documented By: Titration: 02/02/25 02:30 Dose: 175 mcg/hr, 17.5 mls/hr Documented By: Titration: 02/02/25 02:00 Dose: 125 mcg/hr, 12.5 mls/hr Documented By: Titration: 02/02/25 01:48 Dose: 75 mcg/hr, 7.5 mls/hr Documented By: Titration: 02/02/25 00:30 Dose: 25 mcg/hr, 2.5 mls/hr Documented By: Titration: 02/01/25 23:30 Dose: 25 mcg/hr, 2.5 mls/hr Documented By: Titration: 02/01/25 22:30 Dose: 25 mcg/hr, 2.5 mls/hr Documented By: Admin: 02/01/25 21:50 Dose: 25 mcg/hr, 2.5 mls/hr Documented By: YESSENIA Co-signed By: DT Midazolam HCl (Versed Pf Inj In Ns Premix) 100 mg in 100 mls @ 1 mls/hr IV .Q24H PRN; Protocol PRN Reason: PER PROTOCOL Stop: 02/06/25 21:17 Last Titration: 02/02/25 11:20 Dose: 0 mg/hr, 0 mls/hr Documented By: Titration: 02/02/25 11:00 Dose: 1 mg/hr, 1 mls/hr Documented By: Titration: 02/02/25 10:00 Dose: 1 mg/hr, 1 mls/hr Documented By: Titration: 02/02/25 09:00 Dose: 1 mg/hr, 1 mls/hr Documented By: Titration: 02/02/25 08:00 Dose: 1 mg/hr, 1 mls/hr Documented By: Titration: 02/02/25 07:00 Dose: 1 mg/hr, 1 mls/hr Documented By: Titration: 02/02/25 06:00 Dose: 1 mg/hr, 1 mls/hr Documented By: Titration: 02/02/25 05:00 Dose: 1 mg/hr, 1 mls/hr Documented By: Titration: 02/02/25 04:00 Dose: 1 mg/hr, 1 mls/hr Documented By: Titration: 02/02/25 03:00 Dose: 1 mg/hr, 1 mls/hr Documented By: Admin: 02/02/25 02:01 Dose: 1 mg/hr, 1 mls/hr Documented By: Co-signed By: EDUAR Sodium Chloride (Ns) 1,000 mls @ 999 mls/hr IV .Q1H1M ONE Stop: 02/02/25 00:47 Last Infusion: 02/02/25 00:55 Dose: Infused Documented By: Admin: 02/01/25 23:52 Dose: 999 mls/hr Documented By: YESSENIA Lactated Ringer's (Lactated Ringers) 1,000 mls @ 999 mls/hr IV .Q1H1M ONE Stop: 02/02/25 01:14 Last Infusion: 02/02/25 20:40 Dose: Infused Documented By: Admin: 02/02/25 01:19 Dose: 999 mls/hr Documented By: YESSENIA Dextrose/Sodium Chloride (D5-1/2ns) 500 mls @ 150 mls/hr IV .Q3H20M ARI Stop: 03/04/25 01:29 Last Admin: 02/02/25 08:01 Dose: Not Given Documented By: MR Non-Admin Reason: Discontinued Sodium Chloride (Ns 0.45%) 1,000 mls @ 999 mls/hr IV .Q1H1M ONE Stop: 02/02/25 04:30 Last Admin: 02/02/25 02:57 Dose: Not Given Documented By: HV Non-Admin Reason: unsafe per pharmacy Dextrose/Sodium Chloride (D5-1/2ns) 500 mls @ 150 mls/hr IV .Q3H20M ONE Stop: 02/02/25 05:13 Last Infusion: 02/02/25 20:40 Dose: Infused Documented By: Admin: 02/02/25 01:56 Dose: 150 mls/hr Documented By: HV Dextrose/Sodium Chloride (D5-1/2ns) 1,000 mls @ 250 mls/hr IV .Q4H ONE Stop: 02/02/25 07:29 Last Infusion: 02/02/25 20:40 Dose: Infused Documented By: Admin: 02/02/25 03:48 Dose: 250 mls/hr Documented By: RH Norepinephrine/Dextrose (Levophed In D5w 8mg/250ml) Confirm Administered Dose 8 mg in 250 mls @ ud IV .STK-MED ONE Stop: 02/02/25 04:00 Last Admin: 02/02/25 06:54 Dose: Not Given Documented By: MR Non-Admin Reason: stk med Vancomycin HCl 1,000 mg/ (Sodium Chloride) 250 mls @ 150 mls/hr IV X1 ONE Stop: 02/02/25 06:41 Last Infusion: 02/02/25 20:40 Dose: Infused Documented By: Admin: 02/02/25 05:49 Dose: 150 mls/hr Documented By: HV Cefepime HCl 2 gm/ Sodium (Chloride) 50 mls @ 100 mls/hr IV Q12HR [facility] Stop: 02/10/25 08:59 Cefepime HCl 2 gm/ Sodium (Chloride) 50 mls @ 100 mls/hr IV X1 ONE Stop: 02/02/25 06:50 Last Infusion: 02/02/25 20:40 Dose: Infused Documented By: Admin: 02/02/25 07:08 Dose: 100 mls/hr Documented By: ROBLES Albumin Human (Albuminex 25% Ivpb) 25 gm in 100 mls @ 100 mls/hr IV X1 ONE Stop: 02/02/25 20:11 Last Infusion: 02/02/25 20:40 Dose: Infused Documented By: Admin: 02/02/25 19:18 Dose: 100 mls/hr Documented By: MR Albumin Human (Albuminex 25% Ivpb) 25 gm in 100 mls @ 100 mls/hr IV X1 ONE Stop: 02/02/25 21:59 Last Admin: 02/02/25 20:56 Dose: 100 mls/hr Documented By: GEOVANNY Insulin Human Regular (Insulin Hum Regular 1 Unit/0.01 Ml (Per Unit)) 7.5 unit 0.1 unit/kg (7.5 unit) IV X1 ONE Stop: 02/02/25 00:19 Last Admin: 02/02/25 00:55 Dose: 7.5 unit Documented By: RC Co-signed By: RYAN Lidocaine HCl (Lidocaine Hcl 1% 20 Ml Vial) 20 ml INFL X1 ONE Stop: 02/02/25 08:55 Last Admin: 02/02/25 10:32 Dose: Not Given Documented By: MR Non-Admin Reason: changed order Lidocaine HCl (Lidocaine Hcl 1% 20 Ml Vial) Confirm Administered Dose 20 ml .ROUTE .STK-MED ONE Stop: 02/02/25 08:54 Last Admin: 02/02/25 10:31 Dose: Not Given Documented By: MR Non-Admin Reason: stk med Lidocaine HCl (Lidocaine Hcl 1% 20 Ml Vial) 5 ml IM X1 ONE Stop: 02/02/25 08:55 Last Admin: 02/02/25 10:32 Dose: 5 ml Documented By: MR Comments: given during procedure by MD Lowery Rocuronium [place] (Rocuronium Inj 10 Mg/Ml Vial 10 Ml) 70 mg IV X1 ONE Stop: 02/01/25 20:57 Last Admin: 02/01/25 21:06 Dose: 70 mg Documented By: DT Co-signed By: YESSENIA Comments: RSI Sevelamer Carbonate (Sevelamer Carbonate 800 Mg Tablet) 800 mg NG X1 ONE Stop: 02/02/25 00:20 Last Admin: 02/02/25 01:52 Dose: 800 mg Documented By: HV Sodium Bicarbonate (Sodium Bicarb Inj 8.4% 1 Meq/Ml 50 Ml Vial) 100 meq IV X1 ONE Stop: 02/01/25 21:51 Last Admin: 02/01/25 22:17 Dose: 100 meq Documented By: RC Sodium Chloride (Sodium Chloride Rt 10% 15 Ml Nebu) 5 ml INH X1 ONE Stop: 02/01/25 22:05 Last Admin: 02/01/25 23:47 Dose: Not Given Documented By: RC Non-Admin Reason: Discontinued See above if any Consultations Consultation(s) initiated? (list below): Yes Consultation #1 (Physician, Specialty, Details): Discussed with Hospitalist Team for admission. Reviewed the patient?s HPI, PMHx, lab and/or radiology results. Discussed treatment plan. Will consult an admission to the hospitalist. Time: 23:55 Diagnosis Most likely diagnosis given after review of the tests above:: acute hypoxic respiratory failure, acute septic shock, hepatic encephalopathy, and acute renal failure. Admission Indicated Admission indicated?: indicated Explain why admission is indicated or not indicated:: acute hypoxic respiratory failure, acute septic shock, hepatic encephalopathy, and acute renal failure. Admission Request Was there a request for admission?: Yes Admission Attestation Admission request attestation: Discussed case with [] from Hospitalist service regarding admission. Discussed patients ED course, exam findings, labs, and radiology results. The Hospitalist [agrees,declines] to accept the patient for admission. Disposition Plan Disposition Plan: Admit Critical Care Time Critical Care Time Critical Care Time: Yes Total Critical Care Time (min.): 50 Attestation: The high probability of sudden, clinically significant deterioration in the patient?s condition required the highest level of my preparedness to intervene urgently. The services I provided to this patient were to treat and/or prevent clinically significant deterioration. Services included the following: chart data review, reviewing nursing notes and/or old charts, documentation time, sql server consultant collaboration regarding findings and treatment options, medication orders and management, direct patient care, vital sign assessments and ordering, interpreting and reviewing diagnostic studies and lab tests. Aggregate critical care time includes only time during which I was engaged in work directly related to the patient?s care, as described above, whether at bedside or elsewhere in the Emergency Department. It did not include time spent performing other reported procedures or the services of residents, students, nurses or physician assistants. Discharge Plan Plan Patient Disposition: Admit Acute Care w/in Hospital Discharge Disposition comment: Critical clinical condition Problem List Clinical Impression: Septic shock, Acute hypoxemic respiratory failure, Acute renal failure, Dehydration
[2025-02-01 21:12] LABS: Basophils # (Auto) 0.1 Thou/mm3 (0.0-0.2); Basophils % (Auto) 1 % (0-2.5); Eosinophils # (Auto) 0.1 Thou/mm3 (0.0-0.5); Eosinophils % (Auto) 1 % (0-10); Hematocrit 29.8 % (41.0-53.0); Hemoglobin 9.5 g/dL (13.5-16.0); Immature Granulocytes Auto 0.41 Thou/mm3 (0.00-0.00); Lymphocytes # (Auto) 2.1 Thou/mm3 (1.0-4.8); Lymphocytes % (Auto) 18 % (10-50); Mean Corpuscular HGB Conc 31.9 g/dl (31.0-37.0); Mean Corpuscular Hemoglobin 30.4 pg (25.0-35.0); Mean Corpuscular Volume 95 fL (80-100); Monocytes # (Auto) 1.1 Thou/mm3 (0.0-0.8); Monocytes % (Auto) 9 % (0-12); Neutrophils # (Auto) 8.1 Thou/mm3 (1.8-7.7); Neutrophils % (Auto) 69 % (37-80); Nucleated Red Blood Cell # 0.18 Thou/mm3 (0.00-0.00); Nucleated Red Blood Cell % 2 /100 WBC (0); Platelet Count 106 Thou/mm3 (140-440); RDW Standard Deviation 92.9 fL (35.1-43.9); Red Blood Count 3.13 Miln/mm3 (4.50-5.90); White Blood Count 11.9 Thou/mm3 (3.8-10.6)
--- NOTE | 2025-02-01 21:17 | PD.RESPROC ---
PROCEDURES: Procedure Date / Time 02/01/252116 Intubation Indication(s): acute Resp Failure and inability to protect airway Informed consent obtained: procedure done urgently Time out done, and the following verified: correct patient, side and site, procedure, patient position and implants and/or equipment Sedative: etomidate Mg given: 10 Paralytic: rocuronium Mg given: 70 Laryngoscope: May ET tube size: 7 Tube secured depth (cm): 21 Tube secured location: lips Tube placement confirmation: visualized tube passing through cords, equal breath sounds bilaterally, no breath sounds over epigastrium and confirmation by capnometry Patient tolerated procedure: no complications EBL(ml): 0 Intubation complications: none Additional comments: I Theodore Ramon MD PGY-2 performed the procedure Emergent endotracheal intubation successfully with no complications under the direct supervision of my attending Dr. Wadsworth.
--- NOTE | 2025-02-01 21:30 | XR_ITS ---
EXAMINATION: AP chest single view TECHNIQUE: AP portable supine chest single view Date and time: February 01, 2025, 2133 hours, comparison 12/22/2024 INDICATIONS: Hypoxic respiratory failure post intubation FINDINGS: Normal heart size Pneumonia right base Fairly diffuse left lung pneumonia with left apical pleural disease Endotracheal tube tip 22 mm above gaudencio Prominent osteopenia IMPRESSION: Significant bilateral pneumonia
[2025-02-01 21:32] LABS: Base Excess -14 (-3-3); HCO3 15 mEq/L (20-26); O2 Saturation 100 % (91-98); PCO2 46 mmHg (32.0-48.0); PO2 198 mmHg (83-108)
[2025-02-01 21:33] LABS: Allen Test Performed/OK; Inspired Oxygen, FIO2 100 %; Puncture Site Right Radial
[2025-02-01 21:34] LABS: pH, Arterial 7.12 (7.35-7.45)
[2025-02-01 21:35] LABS: B-Type Natriuretic Peptide 200 pg/mL (0-100)
[2025-02-01 21:40] LABS: INR 1.3 (0.9-1.3); Partial Thromboplastin Time 39.3 Seconds (22.0-36.0); Prothrombin Time 13.5 Seconds (9.0-12.2)
[2025-02-01] MEDS: PIPER/TAZO 3.375 GM PREMIX 3.375 GM/50 ML BAG IV (21:43)
[2025-02-01] MEDS: ACETAMINOPHEN SUPP 650 MG SUPP 975 MG PR (21:48)
[2025-02-01] MEDS: fentaNYL 2,500 MCG/250 ML BAG 2,500 MCG/250 ML BAG IV (21:50)
[2025-02-01 21:51] LABS: Alanine Aminotransferase 76 U/L (10-49); Albumin, Serum 3.6 gm/dL (3.4-4.8); Albumin/Globulin Ratio 1.0 (1.2-2.2); Alkaline Phosphatase 696 U/L (46-116); Anion Gap 16 (7-16); Aspartate Amino Transferase 149 U/L (0-34); BUN/Creatinine Ratio 25 Ratio (12-20); Bilirubin,Total 11.9 mg/dL (0.3-1.2); Blood Urea Nitrogen 113 mg/dL (9-23); Calcium 10.2 mg/dL (8.3-10.6); Calcium (Corrected) 10.5 mg/dL (8.5-10.1); Chloride 113 mMol/L (98-107); Creatinine (Component) 4.6 mg/dL (0.6-1.3); Estimated Creatinine Clearance 15.7 mL/min (>60); Globulin 3.5 gm/dL (2.3-3.5); Glucose 101 mg/dL (74-106); LDH (Lactate Dehydrogenase) 526 U/L (120-246); Lipase 35 U/L (12-53); Magnesium 2.5 mg/dL (1.6-2.6); Magnesium 2.6 mg/dL (1.6-2.6); Osmolality,Calculated 322 (275-295); Phosphorous 6.0 mg/dL (2.4-5.1); Sodium 144 mMol/L (136-145); Total Protein 7.1 gm/dL (5.7-8.2); Troponin I 0.021 ng/mL (0.0-0.045); Troponin I 0.024 ng/mL (0.0-0.045); eGFR 13 See Note
[2025-02-01 21:54] LABS: Potassium 6.1 mMol/L (3.4-5.1)
[2025-02-01 21:55] LABS: Carbon Dioxide 14.6 mMol/L (20.0-31.0)
[2025-02-01] MEDS: RINGERS LACTATED 1000 ML 1,000 ML 999 ML IV (21:55)
[2025-02-01 22:04] LABS: Collection Type, Urine Clean Catch; Squamous Epithelial Cell,Urine 0 /hpf (0-5)
[2025-02-01 22:10] LABS: Procalcitonin 165.61 ng/ml (0.0-0.49)
[2025-02-01] MEDS: SODIUM BICARB INJ 8.4% 1 mEq/ML 50 ML VIAL 100 MEQ IV (22:17)
[2025-02-01 22:23] LABS: Bilirubin,Urine 1+ (Negative); Blood,Urine 3+ (Negative); Clarity,Urine Turbid (Clear/Hazy); Color,Urine Drk-Yellow (Lt Yel-Yel); Culture Indicated,Urine Not Indicated; Glucose, Urine Negative (Negative); Ketones,Urine Negative (Negative); Leukocyte Esterase,Urine Negative (Negative); Nitrite,Urine Negative (Negative); PH,Urine 5.5 (5.0-7.0); Protein,Urine 1+ (Neg - Trace); RBC,Urine 133 /hpf (0-3); Specific Gravity,Urine 1.016 (1.001-1.035); Urobilinogen,Urine Negative mg/dL (0.0-1.0); WBC,Urine < 1 /hpf (0-5)
[2025-02-01 22:50] LABS: Ammonia 92 uMol/L (11-32)
[2025-02-01 22:53] LABS: D-Dimer > 3820 ng/mL (<600)
[2025-02-01] MEDS: ALBUTEROL RT 2.5 MG/3 ML NEBU 10 MG HHN (23:03)
[2025-02-01 23:12] LABS: Base Excess -9 (-3-3); HCO3 19 mEq/L (20-26); O2 Saturation 99 % (91-98); PCO2 50 mmHg (32.0-48.0); PO2 120 mmHg (83-108)
[2025-02-01 23:14] LABS: Allen Test Performed/OK; Inspired Oxygen, FIO2 90 %; Puncture Site Right Radial
[2025-02-01 23:15] LABS: pH, Arterial 7.18 (7.35-7.45)
[2025-02-02] VITALS (201 sets, daily range): BP systolic 68–140; BP diastolic 45–83; PULSE 77–136; RESP 3–28; TEMP 35.9–36.4; O2SAT 95–100; BMI 24.2
[2025-02-02 00:05] LABS: Reflex Lactate? Y
[2025-02-02 00:20] LABS: Lactic Acid, 3 HR 1.6 mMol/L (0.4-2.0)
[2025-02-02 00:26] LABS: Base Excess, Venous -10 (-3-3); O2 Saturation, Venous 98 % (96-97); PCO2, Venous 46 mmHg (36-56); PO2, Venous 108 mmHg (15-58); pH, Venous 7.18 (7.33-7.66)
--- NOTE | 2025-02-02 00:35 | ESHP_ITS ---
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 He follows up with Dr. Lomax and Dr. Ugarte at the cancer center, last chemotherapy with topotecan on 01/16/2025 and repeated on 01/30/2025 as per oncology note. Patient was brought to the ED with severe hypoxia, oxygen saturations in the low 80s with moderate to severe respiratory distress. Patient is a poor historian, per ED documentation, family stated that patient started to experience altered mental status around 4 PM today, followed by acute drop in oxygen saturations to 80% on room air. Given that the patient was unable to maintain adequate oxygenation on room air, ED intubated around 9 PM on 02/01/2025. Per oncology documentation from 2 days ago, patient was seen at the cancer center after being discharged from rehab, and family was advised at that time to take patient to the ER due to low oxygen sats. Family denied, and took the patient home on oxygen post electrolyte transfusion on 01/30/2025. Family denied any recent signs of infection or other systemic symptoms, however did endorse yellowing of his eyes . Patient was last hospitalized in December 2024, and had a prolonged hospital stay, with extensive discussions with family regarding hospice. Family actively declined hospice at that time, due to cultural stigma. ER physician rediscussed hospice with family on this admission, family reconsidering, however currently want full code with all treatment. ED Course: Vitals in the ED showed soft blood pressure 90/60s, tachycardia 147 and tachypnea 24. Initial laboratory workup remarkable for mild leukocytosis WBC 11.9 neutrophil predominant, normocytic anemia Hb 9.5 MCV 90s, thrombocytopenia plt 106, hyperkalemia 6.1, hyperphosphatemia 6, bicarb 14.6, RAMSES: BUN 106, creatinine 4.7 (baseline 1.2?1.3) and GFR 13. ABG pH 7.18, CO2 50, LFT: T. bili 11.9, ALP 696, AST 149, ALT 76 and elevated LDH 526. Patient also had elevated Pro-Anup 165.61. UA remarkable for 1+ protein, 3+ blood, 1+ bilirubin, 133 RBC, otherwise sterile. On imaging, chest x-ray showed bilateral consolidation, with severe left apical pleural disease. In the ED, patient was given 2.5 L IV fluids, albuterol and insulin 7.5 units for potassium, and started on fentanyl postintubation. 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 Review of Systems Review of Systems ROS Unobtainable: due to endotracheal tube Exam Vital Signs Temp Pulse Resp BP Pulse Ox O2 Del Method FiO2 99.3 F 147 H 24 H 94/61 95 Mechanical Ventilation 85 02/01/25 23:53 02/01/25 23:53 02/01/25 23:53 02/01/25 23:53 02/01/25 23:53 02/01/25 23:53 02/01/25 23:27 Narrative Exam Constitutional Sedated on Fentanyl. Elderly, Frail. HEENT Vision grossly intact, scleral icterus. Patent nares. Trachea midline. Respiratory Chest normal on inspection, intubated, bilateral breath sounds on auscultation. Cardiovascular S1 and S2 audible, RRR. No murmurs or carotid bruit. No gross JVD. Abdominal Soft and BS + ; distended on palpation in all quadrants. Genitourinary No bladder tenderness, no flank pain. Zhao in place, dark concentrated urine in bag. Musculoskeletal Extremities tone within normal limits. No LE edema. Neurological CN II - XII grossly intact. Extremity motor and sensation grossly intact. Skin Warm, dry and intact. Petechiae on B/L LE shins. Jaundice. Psychiatric Patient has a good affect, is somewhat cooperative. Results: Labs 02/02/25 05:35 02/02/25 23:23 Labs: Short CBC 02/01/25 Range/Units 20:59 WBC 11.9 H (3.8-10.6) Thou/mm3 Hgb 9.5 L (13.5-16.0) g/dL Hct 29.8 L (41.0-53.0) % Plt Count 106 L D (140-440) Thou/mm3 BMP 02/01/25 20:59 Sodium 144 Potassium 6.1 H* D Chloride 113 H Carbon Dioxide 14.6 L* BUN 113 H* Creatinine 4.6 H* D Glucose 101 Calcium 10.2 Cardiac Enzymes 02/01/25 02/01/25 Range/Units 20:59 20:59 Troponin I 0.024 0.021 (0.0-0.045) ng/mL Liver Function 02/01/25 Range/Units 20:59 Total Bilirubin 11.9 H D (0.3-1.2) mg/dL AST 149 H (0-34) U/L ALT 76 H (10-49) U/L Alkaline Phosphatase 696 H D (46-116) U/L Albumin 3.6 (3.4-4.8) gm/dL Urine 02/01/25 Range/Units 21:20 Urine Color Drk-Yellow A (Lt Yel-Yel) Urine Clarity Turbid A (Clear/Hazy) Urine pH 5.5 (5.0-7.0) Ur Specific [place] 1.016 (1.001-1.035) Urine Protein 1+ A (Neg - Trace) Urine Glucose (UA) Negative (Negative) ABG Interpretation ABG results: 02/01/25 02/01/25 02/02/25 21:24 23:06 00:13 ABG pH 7.12 L* 7.18 L* ABG pCO2 46 50 H ABG pO2 198 H 120 H D ABG HCO3 15 L 19 L ABG O2 Saturation 100 H 99 H ABG Base Excess -14 L -9 L VBG pH 7.18 L VBG pCO2 46 VBG pO2 108 H VBG Base Excess -10 L Quality Measures Quality Measures sepsis Current suspected stage: septic shock (LA >4 and/or hypotension) Sepsis reassessment completed at (date): 02/03/25 Sepsis reassessment completed at (time): 04:00 Possible source: other Blood cultures ordered: yes Antibiotic ordered: No Medications Home Medications and Allergies Home Medications ?Medication ?Instructions ?Recorded ?Confirmed ?Type gabapentin 100 mg capsule 100 mg PO BID PRN neuromuscu lar 02/02/25 02/02/25 History blockade midodrine 10 mg tablet 10 mg PO Q8HR PRN blood pres sure 02/02/25 02/02/25 History morphine 30 mg tablet,extended 30 mg PO TID PRN pain ( scale score 02/02/25 02/02/25 History release 7-10) Allergies Allergy/AdvReac Type Severity Reaction Status Date / Time No Known Allergies Allergy Verified 02/01/25 21:09 Visit Medications Enoxaparin Sodium (Enoxaparin Sod Inj 40 Mg/0.4 Ml Syringe) 30 mg SC QPM ARI Stop: 02/16/25 20:59 Famotidine (Famotidine Inj 10 Mg/Ml Vial 2 Ml) 20 mg IVP Q12HR ARI Stop: 03/04/25 08:59 Fentanyl Citrate (Sublimaze Inj 2,500 Mcg/250 Ml Bag) 2,500 mcg in 250 mls @ 2.5 mls/hr IV .Q24H PRN; Protocol PRN Reason: PER PROTOCOL Stop: 02/06/25 21:20 Last Titration: 02/01/25 23:30 Dose: 25 mcg/hr, 2.5 mls/hr Midazolam HCl (Versed Pf Inj In Ns Premix) 100 mg in 100 mls @ 1 mls/hr IV .Q24H PRN; Protocol PRN Reason: PER PROTOCOL Stop: 02/06/25 21:17 Sodium Chloride (Ns) 1,000 mls @ 999 mls/hr IV .Q1H1M ONE Stop: 02/02/25 00:47 Last Admin: 02/01/25 23:52 Dose: 999 mls/hr Lactated Ringer's (Lactated Ringers) 1,000 mls @ 999 mls/hr IV .Q1H1M ONE Stop: 02/02/25 01:14 Lactulose (Lactulose Syrup 20 Gm/30 Ml Udc) 20 gm NG QID ARI; Protocol Stop: 03/04/25 00:29 Ondansetron HCl (Ondansetron Inj 2 Mg/Ml Inj 2 Ml) 4 mg IVP Q6HR PRN PRN Reason: NAUSEA OR VOMITING Stop: 03/03/25 21:12 Discontinued Medications Acetaminophen (Acetaminophen Supp 650 Mg Supp) 975 mg FL X1 ONE Stop: 02/01/25 21:16 Last Admin: 02/01/25 21:48 Dose: 975 mg Adenosine (Adenosine Inj 3 Mg/Ml Vial) 6 mg IVP X1 ONE Stop: 02/01/25 21:10 Last Admin: 02/01/25 21:19 Dose: Not Given Albuterol (Albuterol Rt 2.5 Mg/3 Ml Nebu) 10 mg HHN X1 ONE Stop: 02/01/25 22:11 Last Admin: 02/01/25 23:03 Dose: 10 mg Dextrose (Dextrose 50%-Water Inj 50 Ml Syringe) 50 ml IVP X1 ONE Stop: 02/02/25 00:18 Etomidate (Etomidate Inj 2 Mg/Ml Vial 10 Ml) 10 mg IVP X1 ONE Stop: 02/01/25 20:57 Last Admin: 02/01/25 21:02 Dose: 10 mg Sodium Chloride (Ns) 1,000 mls @ 999 mls/hr IV .Q1H1M ONE Stop: 02/01/25 22:00 Last Infusion: 02/01/25 22:19 Dose: Infused Lactated Ringer's (Lactated Ringers) 1,000 mls @ 999 mls/hr IV .Q1H1M ONE Stop: 02/01/25 22:13 Last Infusion: 02/01/25 22:59 Dose: Infused Piperacillin/Tazobactam/Dextrose (Zosyn) 3.375 gm in 50 mls @ 100 mls/hr IV X1 ONE Stop: 02/01/25 21:42 Last Infusion: 02/01/25 22:20 Dose: Infused Insulin Human Regular (Insulin Hum Regular 1 Unit/0.01 Ml (Per Unit)) 7.5 unit 0.1 unit/kg (7.5 unit) IV X1 ONE Stop: 02/02/25 00:19 Rocuronium [place] (Rocuronium Inj 10 Mg/Ml Vial 10 Ml) 70 mg IV X1 ONE Stop: 02/01/25 20:57 Last Admin: 02/01/25 21:06 Dose: 70 mg Sevelamer Carbonate (Sevelamer Carbonate 800 Mg Tablet) 800 mg NG X1 ONE Stop: 02/02/25 00:20 Sodium Bicarbonate (Sodium Bicarb Inj 8.4% 1 Meq/Ml 50 Ml Vial) 100 meq IV X1 ONE Stop: 02/01/25 21:51 Last Admin: 02/01/25 22:17 Dose: 100 meq Sodium Chloride (Sodium Chloride Rt 10% 15 Ml Nebu) 5 ml INH X1 ONE Stop: 02/01/25 22:05 Last Admin: 02/01/25 23:47 Dose: Not Given Assessment & Plan Plan Mr Garza is a 64-year-old male with a history of 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 Admitted to ICU for management of septic shock. HEME/ONC: Tumor lysis syndrome s/p topotecan Stage IV metastatic small cell lung cancer w/ high tumor burden, likely Ki-67 positive Dx: - Follows Dr. Rutledge, Dr. Ugarte at the cancer center - Started on chemotherapy with Topotecan on 01/16/2025 and repeated on 01/30/2025 as per oncology note. - ABG: pH 7.18, CO2 50, bicarb on CHEM panel - Electrolytes @2100 : Potassium 6.1, Phos 6, LDH 526 - RAMSES @2100: BUN 106, creatinine 4.7 (baseline 1.2?1.3) and GFR 13 - Repeat renal panel + Uric Acid at 00:00 : Potassium 5.4, Phos 7.1, Uric acid 15.5 and Ca 10.5 -> 9.8 - Total IVF bolus at the time of admission: 4L Rx: - Patient was given 1 amp of bicarb in the ED. Bicarb improved from 14.6 --> 16.9 at midnight - Will continue to give bolus fluid every 2 hours. Last echo in November 2024 showed mild LVH, LVEF 55 to 60%, no history of CHF - Continue maintenance IVF: D5/half NS @ 150 cc/h, as sodium slowly uptrending - Consult to oncology for continued follow-up - Consulted nephrology for TLS nephropathy, in the setting of UA 15.5 - Rasburicase 3mg IV x1 ordered, not available overnight. Day Team to reattempt if uric acid levels >7.5 on AM draw. If available in the morning, STOP allopurinol before giving rasburicase, to avoid Xanthine accumulation. - Started on allopurinol 300 mg twice daily for now - Follow daily CMP, Mg, Phos, UA and renal function IT TELECOM TECHNICIAN: Acute encephalopathy 2/2 hyperammonemia Sedated postintubation Dx: - Likely in the setting of end-stage metastatic lung CA - Ammonia 92 on lab work - Possible metastases to the brain, but most likely metabolic etiology Rx: - Continue on fentanyl + versed RASS - 4 - Started on lactulose 20 mg 4 times daily via OGT - Anticipate improvement with hydration and TLS treatment as well - Last MRI brain in July 2024 confirmed no mets. Day team to evaluate if to repeat head CT or MRIB CVS: Septic shock 2/2 HAP Sinus tachycardia Hypotension - HR 140-150 bpm on telemetry and EKG - Blood pressure 80s/50s on presentation - On imaging, chest x-ray showed bilateral consolidation, with severe left apical pleural disease. - Total IVF bolus at the time of admission: 4L RX: - On Levophed - On IVF - MAP trending >65 post fluids. No pressor requirement at this time. PULM: Acute Hypoxic respiratory failure HAP History of stage IV small cell lung cancer (primary) Dx: - Diagnosed in 2022 after bronchoscopy for persistent PNA - Treated with multiple cycles of chemotherapy and radiation - Last treated with Topotecan on 01/30/2025 at [facility] - Per oncology documentation from 2 days ago, patient was seen at the cancer center after being discharged from rehab, and family was advised at that time to take patient to the ER due to low oxygen sats. - Family declined, and took the patient home on oxygen post electrolyte transfusion on 01/30/2025. Family denied any recent signs of infection or other systemic symptoms, however did endorse yellowing of his eyes . - Last hospitalized in December 2024, and had a prolonged hospital stay, with extensive discussions with family regarding hospice. Family actively declined hospice at that time, due to cultural stigma. Rx: - ER physician rediscussed hospice with family on this admission, family reconsidering, however currently want full code with all treatment. - Continue to F/U outpatient for management of cancer (oncology, Dr. Rutledge and radiation, Dr. Ugarte) -Continue IV Abx and f/u bcx and sputum cx - s/p Intubation on MV: ACVC. Repeat ABG ordered for a.m. draw GI: Acute liver injury Hyperammonemia Jaundice 2/2 Hyperbilirubinemia Transaminitis Hypoalbuminemia Distended abdomen Dx: - LFT: T. bili 11.9, ALP 696, AST 149, ALT 76 - Albumin 3.2, Ammonia 92 - Hepatitis panel is negative in the past - CT abdomen/pelvis on previous admissions did not show any significant abnormality, possible metastasis. - Gallbladder ultrasound in the past was done and did not show any CBD obstruction. Rx: - Less suspicion of bile duct obstruction. Follow LFTs with daily labs - Started lactulose 20 mg 4 times daily via OGT. Anticipate improvement with ammonia correction - If distention continues to worsen, recommend bedside POCUS and paracentesis if needed - LFTs unlikely to return back to complete normalcy, due to advancing metastases. RENAL: RAMSES/ARF Non anion gap metabolic acidosis Hyperkalemia Hyperphosphatemia Hyperuricemia Dx: - RAMSES: BUN 113 ->106, Cr 4.7 (baseline 1.2?1.3) and GFR 13 - Hyperkalemia 6.1 -> 5.4 - Hyperphosphatemia 6 -> 7.1 - Bicarb 14.6 -> 16.9 - URIC ACID 15.5 Rx: - Patient was given 2.5 L IV fluids + Albuterol + insulin 7.5 units and dextrose for HyperK - Sevelamer 800mg x1 PO via OGT - Rasburicase 3mg IV x1 , unable overnight. If available in the morning, stop allopurinol first to avoid anticoagulation before giving rasburicase. - Started on allopurinol 300 mg twice daily for hyperuricemia - Nephrology Dr Parker consulted for further recommendations ENDO: No active problems ID: HAP Elevated Pro-Anup Dx: Pro-Anup 165.61, afebrile and mild leukocytosis 11.9 Rx: On iv Abx Patient received IV Zosyn 3.375 x 1 in the ED. Health Maintenance: Disposition: Admit to ICU for AHRF and AMS in the setting of TLS and HAP. Diet: N.p.o. DVT prophylaxis: Lovenox 30 mg SC daily (renally dosed) GI prophylaxis: Famotidine 20 mg twice daily CODE STATUS: FULL Plan of care discussed with attending Cely Samaniego M.D. PGY3 Disclaimer: Minor errors in midlevel provider may be present as this note was dictated using voice recognition software. Attending Provider Attestation/Addendum After examination of the patient and review of the clinical data I feel that this patient needs admission to the hospital for further treatment/evaluation. TOTAL CC TIME: 75 MIN TOTAL TIME: 75 Minutes of direct medical management and planning of care. I Gen Richards MD, attest that I was physically present for luna portions of evaluation, and examined patient, labs and imagings and plan of care were discussed with IM residents team, and I agree with the findings and plans documented above.
[2025-02-02 00:44] LABS: Albumin, Serum 3.2 gm/dL (3.4-4.8); Anion Gap 17 (7-16); BUN/Creatinine Ratio 23 Ratio (12-20); Blood Urea Nitrogen 106 mg/dL (9-23); Calcium 9.2 mg/dL (8.3-10.6); Calcium (Corrected) 9.8 mg/dL (8.5-10.1); Carbon Dioxide 16.9 mMol/L (20.0-31.0); Chloride 115 mMol/L (98-107); Creatinine (Component) 4.7 mg/dL (0.6-1.3); Estimated Creatinine Clearance 15.4 mL/min (>60); Glucose 120 mg/dL (74-106); Osmolality,Calculated 330 (275-295); Phosphorous 7.1 mg/dL (2.4-5.1); Potassium 5.4 mMol/L (3.4-5.1); Sodium 149 mMol/L (136-145); eGFR 13 See Note
[2025-02-02 00:45] LABS: Uric Acid 15.5 mg/dL (3.7-9.2)
[2025-02-02] MEDS: DEXTROSE 50%-WATER INJ 50 ML SYRINGE IVP (00:49)
[2025-02-02] MEDS: INSULIN HUM REGULAR 1 UNIT/0.01 ML (PER UNIT) 7.5 UNIT IV (00:55)
--- NOTE | 2025-02-02 01:11 | XR_ITS ---
EXAMINATION: AP chest single view TECHNIQUE: AP portable supine chest single view Date and time: February 02, 2025, 0112 hours, comparison February 01, 2025 INDICATIONS: Post orogastric tube placement FINDINGS: Extensive bilateral pneumonia especially at the bases Normal heart size Endotracheal tube tip 3.1 cm above gaudencio Orogastric tube in the stomach satisfactory position Prominent osteopenia IMPRESSION: Extensive bilateral pneumonia Orogastric tube in the stomach satisfactory position
[2025-02-02] MEDS: RINGERS LACTATED 1000 ML 1,000 ML 999 ML IV (01:19)
[2025-02-02] MEDS: LACTULOSE SYRUP 20 GM/30 ML UDC NG ×5 (01:51→20:55)
[2025-02-02] MEDS: SEVELAMER CARBONATE 800 MG TABLET NG (01:52)
[2025-02-02] MEDS: DEXTROSE 5%-0.45% NS 500 ML 150 ML IV (01:56)
[2025-02-02] MEDS: MIDAZOLAM/NS 100 MG IVPB 100 MG/100 ML BAG IV (02:01)
--- NOTE | 2025-02-02 03:45 | PD.EVENT ---
Documentation for date of: 02/02/25 Event Note Event Note: Patient presented with ecnephalopathy and hypovolemic shock, likely in setting of tls, patient was intubated in ED and started on aggressive fluid hydration, after several hours urine output remained low around 10-15cc/hr, patient's case was discussed with durability technician Dr. Parker, recommended placing HD catheter and starting patient on HD. Patient's condition was discussed with son over phone who is patient's point of contact and decision maker, patient condition was discussed extensively, and need for urgent dialysis was explained, possible complications of line placement were explained, and he was in agreement. He was informed of patient's poor prognosis and high probability of rapid decline, he stated that he didn't want his dad to suffer any more, patient's code status was change to DNR. Confirmation call in presence of patient's nurses Ravinder was done for HD line placement, HD, and family's wish to switch patient's code status to DNR and to place HD line for hemodialysis was done and all previously mentioned was confirmed.
[2025-02-02] MEDS: DEXTROSE 5%-0.45% NS 1,000 ML 250 ML IV (03:48)
[2025-02-02] MEDS: Norepinephrine/D5W 8mg/250ml 8 MG/250 ML BAG 6.797 MG IV (03:57)
--- NOTE | 2025-02-02 04:58 | PD.EDADDENDU ---
Emergency Room Addendum Addendum Narrative: 04:59 - Supervised application of dialysis catheter performed by Dr. Theodore Tavares, resident physician. Dialysis catheter placed successfully with no complications.
--- NOTE | 2025-02-02 05:19 | XR_ITS ---
EXAMINATION: AP chest single view TECHNIQUE: AP portable semiupright chest single view Date and time: February 02, 2025, 0524 hours, comparison February 02, 2025 0112 hours INDICATIONS: Hypoxic respiratory failure, post temporary dialysis catheter placement FINDINGS: Extensive bibasilar lung opacity consistent with pneumonia Normal heart size Prominent left apical pleural disease again noted Endotracheal tube tip 3.6 cm above gaudencio. Orogastric tube in the stomach the sidehole is beyond the gastrointestinal junction Right internal jugular dialysis catheter tip is in the left innominate vein Prominent vascular congestion, please see the CT chest report November 26, 2024 demonstrating irregular masslike area in the left upper lobe IMPRESSION: Significant bibasilar pneumonia Recommend withdrawing the right internal jugular dialysis catheter 5 cm and reinserting to remove the dialysis catheter tip from the innominate vein
--- NOTE | 2025-02-02 05:21 | PD.RESPROC ---
PROCEDURES: Procedure Date / Time 02/02/25 0521 Central Line Placement Right IJ: Indication(s): shock and poor, or inadequate peripheral venous access Informed consent obtained: obtained from surrogate decision maker and procedure done urgently Time out done, and the following verified: correct patient, side and site, procedure, patient position and implants and/or equipment Patient placed on monitor/pulse ox: Yes Hand Hygiene: scrub, soap & water and alcohol-based hand rub Max Sterile Barrier Techniques used: cap, mask, sterile gown, sterile gloves and sterile full body drape Central line prep: Povidone-Iodine 1%, Chlorhexidine scrub and sterile drapes applied Local anesthesia used: lidocaine 1% Amount of anesthesia used (mL): 5 Ultrasound used for placement: Yes Sterile Technique if Ultrasound used, including sterile gel: yes Central line lumen inserted: triple Post procedure: sutured in place, good blood return, all ports aspirated, flushed, capped and sterile dressing applied Patient tolerated procedure: well and no complications EBL(ml): 10 Complications: none Procedure comment: My hands were washed immediately prior to the procedure. I wore a surgical cap, mask with protective eyewear, full gown and sterile gloves throughout the procedure. The patient was placed in Trendelenburg position. The RIGHT chest region was prepped using chlorhexidine scrub and draped in sterile fashion using a full drape and sterile probe cover and sterile gel employed. The medial and lateral heads of the sternocleidomastoid muscle were identified as was the carotid pulse. The Internal Jugular vein was identified using the ultrasound. Anesthesia was achieved over the vein using 1% lidocaine. Using real-time out of plane guidance, the introducer needle was inserted into the Internal Jugular vein under direct ultrasound visualization. Venous blood was withdrawn. The syringe was removed and a guidewire was advanced into the introducer needle. The guidewire was visualized in the Internal Jugular Vein by ultrasound. A small incision was made at the skin surface with a scalpel and the introducer needle was exchanged for a dilator over the guidewire. After appropriate dilation was obtained, the dilator was exchanged over the wire for a triple lumen central venous catheter. The wire was removed and the catheter was sutured in place. A sterile sorbaview shield was placed over the catheter at the insertion site. The patient tolerated the procedure without any hemodynamic compromise. At time of procedure completion, all ports aspirated and flushed properly. Post-procedure chest x-ray is pending at this time. Estimated blood loss is 5-10ml. I Theodore Ramon MD PGY-2 performed procedure Right IJ Central line insertion under the supervision of my attending Dr. Wadsworth.
[2025-02-02] MEDS: Vancomycin Inj 1,000 MG in SODIUM CHLORIDE 0.9% 250 ML 250 ML 150 MG IV (05:49)
[2025-02-02 06:09] LABS: Basophils # (Auto) 0.0 Thou/mm3 (0.0-0.2); Basophils % (Auto) 0 % (0-2.5); Eosinophils # (Auto) 0.0 Thou/mm3 (0.0-0.5); Eosinophils % (Auto) 0 % (0-10); Hematocrit 25.3 % (41.0-53.0); Immature Granulocytes Auto 0.12 Thou/mm3 (0.00-0.00); Lymphocytes # (Auto) 0.7 Thou/mm3 (1.0-4.8); Lymphocytes % (Auto) 8 % (10-50); Mean Corpuscular HGB Conc 30.8 g/dl (31.0-37.0); Mean Corpuscular Hemoglobin 30.5 pg (25.0-35.0); Mean Corpuscular Volume 99 fL (80-100); Monocytes # (Auto) 0.9 Thou/mm3 (0.0-0.8); Monocytes % (Auto) 9 % (0-12); Neutrophils # (Auto) 7.8 Thou/mm3 (1.8-7.7); Neutrophils % (Auto) 82 % (37-80); Nucleated Red Blood Cell # 0.11 Thou/mm3 (0.00-0.00); Nucleated Red Blood Cell % 1 /100 WBC (0); Platelet Count 72 Thou/mm3 (140-440); RDW Standard Deviation 95.4 fL (35.1-43.9); Red Blood Count 2.56 Miln/mm3 (4.50-5.90); White Blood Count 9.6 Thou/mm3 (3.8-10.6)
[2025-02-02 06:11] LABS: Hemoglobin 7.8 g/dL (13.5-16.0)
[2025-02-02 06:38] LABS: Alanine Aminotransferase 61 U/L (10-49); Albumin, Serum 2.9 gm/dL (3.4-4.8); Albumin/Globulin Ratio 1.1 (1.2-2.2); Alkaline Phosphatase 536 U/L (46-116); Anion Gap 16 (7-16); Aspartate Amino Transferase 136 U/L (0-34); BUN/Creatinine Ratio 21 Ratio (12-20); Bilirubin,Total 12.0 mg/dL (0.3-1.2); Blood Urea Nitrogen 94 mg/dL (9-23); Calcium 8.8 mg/dL (8.3-10.6); Calcium (Corrected) 9.7 mg/dL (8.5-10.1); Carbon Dioxide 16.7 mMol/L (20.0-31.0); Chloride 113 mMol/L (98-107); Creatinine (Component) 4.4 mg/dL (0.6-1.3); Estimated Creatinine Clearance 16.4 mL/min (>60); Globulin 2.6 gm/dL (2.3-3.5); Glucose 282 mg/dL (74-106); Magnesium 2.3 mg/dL (1.6-2.6); Osmolality,Calculated 329 (275-295); Potassium 5.1 mMol/L (3.4-5.1); Sodium 146 mMol/L (136-145); Thyroid Stimulating Hormone 0.77 uIU/mL (0.55-4.78); Total Protein 5.5 gm/dL (5.7-8.2); Uric Acid 14.0 mg/dL (3.7-9.2); eGFR 14 See Note
--- NOTE | 2025-02-02 07:01 | PRELIM_ITS ---
Radiograph of the chest (single view). February 02, 2025 AT 0521 hours Clinical history: Vascath placement. Findings: A right central line is seen crossing the midline, with its tip, likely in the left brachiocephalic vein. The nasogastric catheter is appropriately positioned with its side hole in the region of the stomach, its tip is not included in the field of view. The heart, mediastinum and pulmonary mita are unremarkable. There are hazy opacities in both lower lung zones, may represent atelectasis versus infiltrates. Increased vascular markings are seen. There is no large pleural effusion. The bony thorax is unremarkable. Impression: A right central line is seen crossing the midline, with its tip, likely in the left brachiocephalic vein. Recommend repositioning. Hazy opacities in both lower lung zones, may represent atelectasis versus infiltrates. Recommend clinical correlation. Mild vascular congestion. Discussion Details: Results verbally communicated to : Sebastián Amaro at 06:57 AM 02/02/2025 Report Electronically Signed By: John Newell 02/02/2025 7:01:19 AM [EST]
[2025-02-02] MEDS: CEFEPIME INJ 2 GM in SODIUM CHLORIDE 0.9% (Popper) 50 ML IV (07:08)
--- NOTE | 2025-02-02 07:38 | PD.ONCCONS ---
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 Recurrence noted clinically and at bony sites soon thereafter, with subsequent profound declining clinical condition. New chemo including topotecan scheduled under Dr. Rutledge's direction. Admitted with symptoms of acute encephalopathy hypotension tachycardia and respiratory failure. Also noted to have renal failure with elevated uric acid LFTs with low urine output. Patient intubated in the ICU. Patient is scheduled for hemodialysis and dialysis catheter was placed. Patient has been made DNR. cc:: cc: Gen Richards MD Past Medical History Family History OTHER FAMILY HX: Father had lung CA 2008 1 sister had breast cancer paternal uncle had prostate cancer Social History SOCIAL: [id number] history of smoking of [place] descent. Past Medical History Comments PMH COMMENT: Lung cancer since 2022 with subsequent spread and multiple complications. Meds Home Medications and Allergies Allergies Allergy/AdvReac Type Severity Reaction Status Date / Time No Known Allergies Allergy Verified 02/01/25 21:09 Exam Vital Signs Temp Pulse Resp BP Pulse Ox O2 Del Method FiO2 99.3 F 102 H 25 H 82/50 L 97 Mechanical Ventilation 90 02/01/25 23:53 02/02/25 07:15 02/02/25 06:13 02/02/25 07:15 02/02/25 07:15 02/01/25 23:53 02/02/25 06:13 Narrative Exam Patient intubated in ICU Results Labs 02/02/25 05:35 02/02/25 05:35 Labs: Short CBC 02/01/25 02/02/25 Range/Units 20:59 05:35 WBC 11.9 H 9.6 (3.8-10.6) Thou/mm3 Hgb 9.5 L 7.8 L (13.5-16.0) g/dL Hct 29.8 L 25.3 L (41.0-53.0) % Plt Count 106 L D 72 L D (140-440) Thou/mm3 BMP 02/01/25 02/02/25 02/02/25 20:59 00:13 05:35 Sodium 144 149 H 146 H Potassium 6.1 H* D 5.4 H D 5.1 Chloride 113 H 115 H 113 H Carbon Dioxide 14.6 L* 16.9 L 16.7 L BUN 113 H* 106 H* 94 H Creatinine 4.6 H* D 4.7 H* 4.4 H* Glucose 101 120 H 282 H D Calcium 10.2 9.2 8.8 Cardiac Enzymes 02/01/25 02/01/25 Range/Units 20:59 20:59 Troponin I 0.024 0.021 (0.0-0.045) ng/mL Liver Function 02/01/25 02/02/25 02/02/25 Range/Units 20:59 00:13 05:35 Total Bilirubin 11.9 H D 12.0 H (0.3-1.2) mg/dL AST 149 H 136 H (0-34) U/L ALT 76 H 61 H (10-49) U/L Alkaline Phosphatase 696 H D 536 H D (46-116) U/L Albumin 3.6 3.2 L 2.9 L (3.4-4.8) gm/dL Urine 02/01/25 Range/Units 21:20 Urine Color Drk-Yellow A (Lt Yel-Yel) Urine Clarity Turbid A (Clear/Hazy) Urine pH 5.5 (5.0-7.0) Ur Specific Sullivan 1.016 (1.001-1.035) Urine Protein 1+ A (Neg - Trace) Urine Glucose (UA) Negative (Negative) ABG Interpretation ABG results: 02/01/25 02/01/25 02/02/25 21:24 23:06 00:13 ABG pH 7.12 L* 7.18 L* ABG pCO2 46 50 H ABG pO2 198 H 120 H D ABG HCO3 15 L 19 L ABG O2 Saturation 100 H 99 H ABG Base Excess -14 L -9 L VBG pH 7.18 L VBG pCO2 46 VBG pO2 108 H VBG Base Excess -10 L Assessment and Plan Additional Assessment & Plan Additional Plan: 1.Stage IV lung CA initial treatment 2022 when it was limited to chest now with widespread mets.. 2. Multiple complications and comorbidities including respiratory failure renal failure acidosis electrolyte imbalances in ICU intubated scheduled for dialysis. 3. Patient reportedly has been made a DNR patient, will follow patient as needed.
[2025-02-02] MEDS: HEPARIN SOD INJ 1000 UNIT/ML VIAL 10 ML 3000 UNIT INDWELLCAT (09:49)
[2025-02-02 10:17] LABS: Lactate (Lactic Acid) 2.2 mMol/L (0.4-2.0)
--- NOTE | 2025-02-02 10:30 | XR_ITS ---
Examination: Abdomen sonogram, Limited Date and time of exam: February 02, 2025, 1130 hours INDICATIONS: Elevated total bilirubin on laboratory examination today Technique: Real-time vegas scale transabdominal sonographic images of the upper abdomen obtained. Findings: Minimal gallbladder sludge Gallbladder wall is thickened 0.7 cm Common bile duct 0.4 cm Pancreatic head 3.9 cm Liver 22.9 cm fatty infiltration lobular contour mild ascites Normal hepatopetal portal venous flow Patent IVC IMPRESSION: Abnormal thickening gallbladder wall, consider HIDA scan or MRCP follow-up to exclude cholecystitis Moderate hepatomegaly, cirrhosis, mild ascites
[2025-02-02] MEDS: LIDOCAINE HCL 1% 20 ML VIAL 5 ML IM (10:32)
[2025-02-02 10:39] LABS: Base Excess, Venous -5 (-3-3); O2 Saturation, Venous 91 % (96-97); PCO2, Venous 31 mmHg (36-56); PO2, Venous 53 mmHg (15-58); pH, Venous 7.39 (7.33-7.66)
--- NOTE | 2025-02-02 10:45 | ESPR_ITS ---
<Statement entered by Evan Jack MD - 02/03/25 20:07> TOTAL CC TIME: 45 MIN I saw and evaluated the patient. I reviewed the resident?s note and agree with findings and plan as documented in the resident?s note. Upon my evaluation, this patient had a high probability of imminent or life- threatening deterioration due to septic shock / renal failure, metabolic encephalopathy, which required my direct attention, intervention, and personal management. This time is exclusive of time spent on procedures, which are documented separately if performed. 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 Rutledge with last chemotherapy session on 01/16/2025 with topotecan was brought to the ED with hypoxia in the low 80s with moderate respiratory distress and altered mental status. Patient's family stated that patient was having decreased alertness from past couple of days and had sudden altered mentation yesterday at 4 PM with acute drop in oxygen saturation to 80% on room air. Per oncology documentation in patient's son he was seen at cancer center after being discharged from rehab and was informed that patient had kidney and liver failure and will need to go to the ER. Initially, family took him to home after electrolyte repletion on 01/30 at 25 but due to his sudden decline yesterday 02/01 they brought him to the ER. He had a previous hospitalization in December 2024 with prolonged hospital stay and discussion on hospice was brought up however family declined during that time. In the ED, patient met 4 out of 4 SIRS criteria with hypotension, tachycardia, fever and elevated white count. He was found to have acute renal failure with hyperuricemia, hyperphosphatemia and elevated LDH with concern of tumor lysis syndrome. Chest x-ray was significant for bilateral pneumonia consolidations with severe left apical pleural disease with elevated procalcitonin. He received total 5 L of IV fluids, albuterol and insulin 7.5 units for hyperkalemia. Patient was admitted for septic shock due to pneumonia, acute encephalopathy due to multiple cerebral metastasis, and AHRF due to pneumonia requiring intubation due to hypoxia and inability to protect airways both. Patient was sedated on Versed and fentanyl with RAAS -4 and was later switched to propofol and fentanyl with RAAS -2 and Versed was discontinued. Initially dialysis line was placed in right brachiocephalic vein but it was replaced with right femoral dialysis line later to start Tablo and pressors as patient was requiring higher pressors.we will continue with antibiotics cefepime and vancomycin. we will keep the patient on Propofol only if needed and will continue fentanyl due to advance metastatic disease. GOC was performed with the family and they were informed regarding poor prognosis because of advanced metastatic lung cancer widespread mets to bones, brain, and liver. Family is aware of patient's critical condition and even overnight but they want to proceed with Tablo for 24 hours to see if he is able to wake and they want to say final goodbyes. We will proceeding with family wishes. Patient is on high dose Levophed and vasopressin. Therefore, hydrocortisone was started with loading dose of 100 mg and 50 mg every 6 hourly. If patient does not improve after 24 hours of Tablo family would like to proceed with comfort care.CODE status is DNR/DNI I discussed and supervised with the software engineer intern physician who took care of this patient. I personally saw and examined the patient. I agree with most of the assessment and plan. Disclaimer: Despite multiple revisions, due to the dictation software being used, the document bellow may not be free of grammatical errors including phonetic/typographic errors. However, this does not deter from our commitment to providing health care in the patient's best interest in mind. Plan of care discussed with attending Physician Dr. 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 He follows up with Dr. Lomax and Dr. Ugarte at the cancer center, last chemotherapy with topotecan on 01/16/2025 and repeated on 01/30/2025 as per oncology note. Patient was brought to the ED with severe hypoxia, oxygen saturations in the low 80s with moderate to severe respiratory distress. Per ED, family stated that patient started to experience altered mental status around 4 PM today, followed by acute drop in oxygen saturations to 80% on room air. Given that the patient was unable to maintain adequate oxygenation on room air, ED intubated around 9 PM on 02/01/2025. Per oncology documentation from 2 days ago, patient was seen at the cancer center after being discharged from rehab, and family was advised at that time to take patient to the ER due to low oxygen sats. Family denied, and took the patient home on oxygen post electrolyte transfusion on 01/30/2025. Family denied any recent signs of infection or other systemic symptoms, however did endorse yellowing of his eyes . Patient was last hospitalized in December 2024, and had a prolonged hospital stay, with extensive discussions with family regarding hospice. Family actively declined hospice at that time. ER physician rediscussed hospice with family on this admission, family reconsidering, however currently want full code with all treatment. ED Course: Vitals in the ED showed soft blood pressure 90/60s, tachycardia 147 and tachypnea 24. Initial laboratory workup remarkable for mild leukocytosis WBC 11.9 neutrophil predominant, normocytic anemia Hb 9.5 MCV 90s, thrombocytopenia plt 106, hyperkalemia 6.1, hyperphosphatemia 6, bicarb 14.6, RAMSES: BUN 106, creatinine 4.7 (baseline 1.2?1.3) and GFR 13. ABG pH 7.18, CO2 50, LFT: T. bili 11.9, ALP 696, AST 149, ALT 76 and elevated LDH 526. Patient also had elevated Pro-Anup 165.61. UA remarkable for 1+ protein, 3+ blood, 1+ bilirubin, 133 RBC, otherwise sterile. On imaging, chest x-ray showed bilateral consolidation, with severe left apical pleural disease. In the ED, patient was given 2.5 L IV fluids, albuterol and insulin 7.5 units for potassium, and started on fentanyl postintubation. 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 Interval History in ICU: 02/02/2025: Patient in the morning was assessed and examined in the ICU, found to be sedated initially on versed and fentanyl; was later switched to fentanyl and ordered propofol for sedation if needed with goal rass of -2. Patient is being mechanically ventillated after being found to have respiratory distress/decompensation. Patient was placed on levophed initially and throughout the day ended up needing vasopressin. Neprhology was consulted and recommended patient get TABLO dialysis for elevated uric acid levels, electrolyte derangements along with metabolic acidosis. Patient's family was consented for central line and was placed after that. Patient had CT imaging done of head that found mets and imaging of chest/abdomen/pelvis which was significant for hepatic mets, extensive bilatereal pneumonia, cirrhosis, 20 mm left adrenal mass, moderate asicites, and widespread osteoblastic metastatic disease. Patient's family early this morning had a discussion with ED physicians regarding poor prognosis and patient was switched to DNR. Refer to event note for more details. Patient's family later in the day were informed of the imaging and opted to have dialysis continued for 24 hours with hope for improvement & also said they will reassess after the 24 hours after dialysis started for comfort care. Family showed understanding and all of their questions were answered. Exam Vital Signs Temp Pulse Resp BP Pulse Ox O2 Del Method FiO2 99.3 F 99 25 H 87/53 L 98 Mechanical Ventilation 85 02/01/25 23:53 02/02/25 10:02/02/25 06:13 02/02/25 10:29 02/02/25 10:02/01/25 23:53 02/02/25 10:29 Narrative Exam General: Sedated, Intubated Skin: Warm, dry, intact, no obvious rash. Jaundiced HENT: NCAT, PERRL, Scleral Icterus present. External ears normal. No rhinorrhea. Dry mucous membranes Cardiovascular: Regular rate and rhythm, no murmur, +S1/S2. Respiratory: Lungs CTAB on anterior auscultation GI: Distended, firm, bowel sounds present; hepatomegaly : No suprapubic tenderness. No flank tenderness bilaterally. Extremities: no edema, no cyanosis, no clubbing. Extremity pulses present; C lubbing Neuro: RASS -4, not withdrawing to pain; PERRL; babinkski not present; Objective Labs 02/02/25 05:35 02/02/25 16:48 Labs: Laboratory Results - last 24 hr 02/01/25 02/01/25 02/01/25 20:59 20:59 20:59 WBC 11.9 H RBC 3.13 L Hgb 9.5 L Hct 29.8 L MCV 95 MCH 30.4 MCHC 31.9 RDW Std Deviation 92.9 H Plt Count 106 L D Neut % (Auto) 69 Lymph % (Auto) 18 [place] % (Auto) 9 Eos % (Auto) 1 Baso % (Auto) 1 Neut # (Auto) 8.1 H Lymph # (Auto) 2.1 [place] # (Auto) 1.1 H Eos # (Auto) 0.1 Baso # (Auto) 0.1 Immature Gran # (Auto) 0.41 H Absolute Nucleated RBC 0.18 H Immature Gran % 4 H Nucleated RBC % 2 H PT 13.5 H INR 1.3 APTT 39.3 H D D-Dimer Puncture Site ABG pH ABG pCO2 ABG pO2 ABG HCO3 ABG O2 Saturation ABG Base Excess VBG pH VBG pCO2 VBG pO2 VBG O2 Sat (Dorota) VBG Base Excess FiO2 Sodium 144 Potassium 6.1 H* D Chloride 113 H Carbon Dioxide 14.6 L* Anion Gap 16 BUN 113 H* Creatinine 4.6 H* D Estim Creat Clear Calc 15.7 L eGFR 13 L* BUN/Creatinine Ratio 25 H Glucose 101 Calculated Osmolality 322 H Lactic Acid 2.1 H Uric Acid Calcium 10.2 Corrected Calcium 10.5 H Phosphorus 6.0 H Magnesium 2.5 2.6 Total Bilirubin 11.9 H D AST 149 H ALT 76 H Alkaline Phosphatase 696 H D Ammonia Lactate Dehydrogenase 526 H Troponin I 0.024 0.021 B-Natriuretic Peptide 200 H Total Protein 7.1 Albumin 3.6 Globulin 3.5 Albumin/Globulin Ratio 1.0 L Lipase 35 Procalcitonin 165.61 H TSH Ur Collection Type Urine Color Urine Clarity Urine pH Ur Specific [place] Urine Protein Urine Glucose (UA) Urine Ketones Urine Blood Urine Nitrite Urine Bilirubin Urine Urobilinogen (Auto) Ur Leukocyte Esterase Urine RBC Urine WBC Ur Squamous Epith Cells Urine Bacteria Ur Culture Indicated? 02/01/25 02/01/25 02/01/25 21:20 21:24 22:17 WBC RBC Hgb Hct MCV MCH MCHC RDW Std Deviation Plt Count Neut % (Auto) Lymph % (Auto) [place] % (Auto) Eos % (Auto) Baso % (Auto) Neut # (Auto) Lymph # (Auto) [place] # (Auto) Eos # (Auto) Baso # (Auto) Immature Gran # (Auto) Absolute Nucleated RBC Immature Gran % Nucleated RBC % PT INR APTT D-Dimer > 3820 H Puncture Site Right Radial ABG pH 7.12 L* ABG pCO2 46 ABG pO2 198 H ABG HCO3 15 L ABG O2 Saturation 100 H ABG Base Excess -14 L VBG pH VBG pCO2 VBG pO2 VBG O2 Sat (Dorota) VBG Base Excess FiO2 100 Sodium Potassium Chloride Carbon Dioxide Anion Gap BUN Creatinine Estim Creat Clear Calc eGFR BUN/Creatinine Ratio Glucose Calculated Osmolality Lactic Acid Uric Acid Calcium Corrected Calcium Phosphorus Magnesium Total Bilirubin AST ALT Alkaline Phosphatase Ammonia 92 H* Lactate Dehydrogenase Troponin I B-Natriuretic Peptide Total Protein Albumin Globulin Albumin/Globulin Ratio Lipase Procalcitonin TSH Ur Collection Type Clean Catch Urine Color Drk-Yellow A Urine Clarity Turbid A Urine pH 5.5 Ur Specific [place] 1.016 Urine Protein 1+ A Urine Glucose (UA) Negative Urine Ketones Negative Urine Blood 3+ A Urine Nitrite Negative Urine Bilirubin 1+ A Urine Urobilinogen (Auto) Negative Ur Leukocyte Esterase Negative Urine RBC 133 H Urine WBC < 1 Ur Squamous Epith Cells 0 Urine Bacteria None Ur Culture Indicated? Not Indicated 02/01/25 02/02/25 02/02/25 23:06 00:13 05:35 WBC 9.6 RBC 2.56 L Hgb 7.8 L Hct 25.3 L MCV 99 MCH 30.5 MCHC 30.8 L RDW Std Deviation 95.4 H Plt Count 72 L D Neut % (Auto) 82 H Lymph % (Auto) 8 L [place] % (Auto) 9 Eos % (Auto) 0 Baso % (Auto) 0 Neut # (Auto) 7.8 H Lymph # (Auto) 0.7 L [place] # (Auto) 0.9 H Eos # (Auto) 0.0 Baso # (Auto) 0.0 Immature Gran # (Auto) 0.12 H Absolute Nucleated RBC 0.11 H Immature Gran % 1 H Nucleated RBC % 1 H PT INR APTT D-Dimer Puncture Site Right Radial ABG pH 7.18 L* ABG pCO2 50 H ABG pO2 120 H D ABG HCO3 19 L ABG O2 Saturation 99 H ABG Base Excess -9 L VBG pH 7.18 L VBG pCO2 46 VBG pO2 108 H VBG O2 Sat (Dorota) 98 H VBG Base Excess -10 L FiO2 90 Sodium 149 H 146 H Potassium 5.4 H D 5.1 Chloride 115 H 113 H Carbon Dioxide 16.9 L 16.7 L Anion Gap 17 H 16 BUN 106 H* 94 H Creatinine 4.7 H* 4.4 H* Estim Creat Clear Calc 15.4 L 16.4 L eGFR 13 L* 14 L* BUN/Creatinine Ratio 23 H 21 H Glucose 120 H 282 H D Calculated Osmolality 330 H 329 H Lactic Acid 1.6 Uric Acid 15.5 H* 14.0 H* Calcium 9.2 8.8 Corrected Calcium 9.8 9.7 Phosphorus 7.1 H Magnesium 2.3 Total Bilirubin 12.0 H AST 136 H ALT 61 H Alkaline Phosphatase 536 H D Ammonia Lactate Dehydrogenase Troponin I B-Natriuretic Peptide Total Protein 5.5 L Albumin 3.2 L 2.9 L Globulin 2.6 Albumin/Globulin Ratio 1.1 L Lipase Procalcitonin TSH 0.77 Ur Collection Type Urine Color Urine Clarity Urine pH Ur Specific [place] Urine Protein Urine Glucose (UA) Urine Ketones Urine Blood Urine Nitrite Urine Bilirubin Urine Urobilinogen (Auto) Ur Leukocyte Esterase Urine RBC Urine WBC Ur Squamous Epith Cells Urine Bacteria Ur Culture Indicated? 02/02/25 09:59 WBC RBC Hgb Hct MCV MCH MCHC RDW Std Deviation Plt Count Neut % (Auto) Lymph % (Auto) [place] % (Auto) Eos % (Auto) Baso % (Auto) Neut # (Auto) Lymph # (Auto) [place] # (Auto) Eos # (Auto) Baso # (Auto) Immature Gran # (Auto) Absolute Nucleated RBC Immature Gran % Nucleated RBC % PT INR APTT D-Dimer Puncture Site ABG pH ABG pCO2 ABG pO2 ABG HCO3 ABG O2 Saturation ABG Base Excess VBG pH 7.39 VBG pCO2 31 L D VBG pO2 53 D VBG O2 Sat (Dorota) 91 L VBG Base Excess -5 L FiO2 Sodium Potassium Chloride Carbon Dioxide Anion Gap BUN Creatinine Estim Creat Clear Calc eGFR BUN/Creatinine Ratio Glucose Calculated Osmolality Lactic Acid 2.2 H Uric Acid Calcium Corrected Calcium Phosphorus Magnesium Total Bilirubin AST ALT Alkaline Phosphatase Ammonia Lactate Dehydrogenase Troponin I B-Natriuretic Peptide Total Protein Albumin Globulin Albumin/Globulin Ratio Lipase Procalcitonin TSH Ur Collection Type Urine Color Urine Clarity Urine pH Ur Specific [place] Urine Protein Urine Glucose (UA) Urine Ketones Urine Blood Urine Nitrite Urine Bilirubin Urine Urobilinogen (Auto) Ur Leukocyte Esterase Urine RBC Urine WBC Ur Squamous Epith Cells Urine Bacteria Ur Culture Indicated? ABG Interpretation ABG results: 02/01/25 02/01/25 02/02/25 21:24 23:06 00:13 ABG pH 7.12 L* 7.18 L* ABG pCO2 46 50 H ABG pO2 198 H 120 H D ABG HCO3 15 L 19 L ABG O2 Saturation 100 H 99 H ABG Base Excess -14 L -9 L VBG pH 7.18 L VBG pCO2 46 VBG pO2 108 H VBG Base Excess -10 L 02/02/25 09:59 ABG pH ABG pCO2 ABG pO2 ABG HCO3 ABG O2 Saturation ABG Base Excess VBG pH 7.39 VBG pCO2 31 L D VBG pO2 53 D VBG Base Excess -5 L Quality Measures Quality Measures VTE prophylaxis (SCD's) Assessment & Plan Assessment Current Active Medications: Generic Name Dose Route Start Last Admin Trade Name Freq PRN Reason Stop Dose Admin Allopurinol 300 mg 02/02/25 02:00 02/02/25 02:14 Allopurinol 100 Mg Tablet GT 03/04/25 01:59 300 mg BID ARI Administration Heparin Sodium (Porcine) 3,000 unit 02/02/25 09:42 02/02/25 09:49 Heparin Sod Inj 1000 Unit/Ml Vial 10 Ml INDWELLCAT 02/16/25 09:23 3,000 unit PRN PRN Administration DIALYSIS Fentanyl Citrate 2,500 mcg in 250 mls @ 2.5 mls/hr 02/01/25 21:21 02/02/25 06:00 Sublimaze Inj 2,500 Mcg/250 Ml Bag IV 02/06/25 21:20 175 mcg/hr .Q24H PRN 17.5 mls/hr PER PROTOCOL Titration Protocol 25 MCG/HR Midazolam HCl 100 mg in 100 mls @ 1 mls/hr 02/01/25 21:18 02/02/25 06:00 Versed Pf Inj In Ns Premix IV 02/06/25 21:17 1 mg/hr .Q24H PRN 1 mls/hr PER PROTOCOL Titration Protocol 1 MG/HR Norepinephrine/Dextrose 8 mg in 250 mls @ 6.797 mls/hr 02/02/25 04:06 02/02/25 07:00 Levophed In D5w 8mg/250ml IV 03/04/25 04:05 0.13 mcg/kg/min .Q24H PRN 17.672 mls/hr PER PROTOCOL Titration Protocol 0.05 MCG/KG/MIN Cefepime HCl 1 gm/ Sodium 50 mls @ 100 mls/hr 02/03/25 09:00 Chloride IV 02/10/25 08:59 QDAY ARI Lactulose 20 gm 02/02/25 00:30 02/02/25 05:49 Lactulose Syrup 20 Gm/30 Ml Udc NG 03/04/25 00:29 20 gm QID ARI Administration Protocol Ondansetron HCl 4 mg 02/01/25 21:13 Ondansetron Inj 2 Mg/Ml Inj 2 Ml IVP 03/03/25 21:12 Q6HR PRN NAUSEA OR VOMITING Pantoprazole Sodium 40 mg 02/02/25 07:30 02/02/25 10:36 Pantoprazole Inj 40 Mg Vial IVP 03/04/25 07:29 40 mg QDAY ARI Administration Pharmacy Consult 1 each 02/02/25 09:00 Vancomycin Pharmacy To Dose 1 Each Each IV 03/04/25 08:59 QDAY PRN RX Rasburicase 3 mg 02/03/25 15:00 Rasburicase Inj 1.5 Mg Vial (Non-Formulary) IV 02/03/25 15:01 X1 ONE Protocol Plan Mr Set is a 64-year-old male with a history of 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 Admitted to ICU for management of septic shock. 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 Possible contributing factors of encephalopathy include acute renal failure with severe pre-renal azotemia and metabolic acidosis from shock vs hyperammonemia vs tumor lysis syndrome -> e-lyte derangements. Dx: - Admission labs of Ammonia 92, BUN 106, Cr 4.7, K 6.1, Uric Acid 15.5, Phos 7.1, Bicarb 16.7 - MRI brain in July 2024 confirmed no mets - Head CT 02/02: Multiple cerebral metastases - Family Informed Rx: - Changed sedation to fentanyl; ordered propofol; goal RASS of -2 - Dialysis/Tablo for acute renal failure with Uric acid elevation & e-lyte derangements RRx: - Gave 2 amps bicarb - Discontinued Versed for sedation and continue with fentanyl mainly due to mets - use propofol only if needed - Continue stress dose steroids for cerebral metastasis and increased pressor requirement - Family was informed that Prognosis is poor with advance widespread metastasis CVS: Septic Shock DDx: Pneumonia in setting of metastatic small cell lung cancer to brain, liver. Dx: - MAP 50s/60s on presentation - Femoral Central line completed for unequivocal access given earlier RIJ central line attempt - Lactic acid 2.1 -> 1.6 -> 2.1 - Bedside US showed no evidence of RV overload, Low respiratory variation of IVC, Equivocal IVC Rx: -Levophed 0.13, Vasopressin -Started Hydrocortison 100 mg IV x1 & 50 mg IV q6hr -5.5 L IV fluid given -Vancomycin (02/02- , Cefepime (02/02- RRx: -Zosyn (02/01) Sinus tachycardia, improved DDx: septic shock Dx: - Initial HR 140-150 bpm on telemetry - On imaging, chest x-ray showed bilateral consolidation, with severe left apical pleural disease. - Total IVF bolus at the time of admission: 4L RX: - Continue to monitor heart rate PULM: Acute Hypoxic respiratory failure Mechanical Ventilation History of stage IV small cell lung cancer (primary) Mechanically ventilated for respiratory failure and inability to protect airway AHRF due to B/L pneumonia consolidations and adv small cell lung cancer (last chemotherapy 01/30) PE less likely after bedside US showed no evidence of RV overload; aspiration pneumonia suspected as patient had altered mental status and imaging showing significant bibasilar pneumonia. -(oncology, Dr. Rutledge and radiation, Dr. Ugarte) Dx: - ABG overnight showed metabolic acidosis. After interventions, improved with most recent ABG 7.39 pH, pco2 31, po2 53 - Regarding Metastatic Lung cancer, Patient's son made the decision earlier in the morning to change Code Status to DNR after extensively being informed of poor prognosis and high probability of rapid decline. Rx: - Continue Intubation on MV: ACVC and follow with blood gases - Extensive pneumonia treated with antibiotics GI: Liver metastasis due to Small cell lung cancer Hyperammonemia Jaundice 2/2 Hyperbilirubinemia Hepatitis Hypoalbuminemia Distended abdomen DDx: Newly found mets in liver i/s/o chronic cirrhosis Dx: - LFT: T. bili 11.9, ALP 696, AST 149, ALT 76; Albumin 3.2, Ammonia 92 - CT AP 02/02 showed Cirrhosis; Numerous hepatic lesions, consider multifocal primary Jewel liver disease, hepatic metastases (hepatic lesions ranging in size from 2 to 20 mm); moderate ascites; hepatic colopathy; -US Abd 02/02: Abnormal thickening gallbladder wall, Moderate hepatomegaly, cirrhosis, mild ascites; Normal hepatopetal portal venous flow; CBD 0.4 cm Rx: - Trend LFTs with daily labs and continue tablo -Obstruction in biliary tract can not be relieved due to metastatic liver disease HEME/ONC: Tumor lysis syndrome Stage IV metastatic small cell lung cancer Dx: - Follows Dr. Rutledge, Dr. Ugarte at the [facility] - Started on chemotherapy with Topotecan on 01/16/2025 and repeated on 01/30/2025 as per oncology note. - ABG: pH 7.18, CO2 50, bicarb on CHEM panel - Electrolytes @2100 : Potassium 6.1, Phos 6, LDH 526 - RAMSES @2100: BUN 106, creatinine 4.7 (baseline 1.2?1.3) and GFR 13 - Repeat renal panel + Uric Acid at 00:00 : Potassium 5.4, Phos 7.1, Uric acid 15.5 and Ca 10.5 -> 9.8 - Total IVF bolus at the time of admission: 4L - Patient was given 1 amp of bicarb in the ED. Bicarb improved from 14.6 --> 16.9 at midnight - 5.5 L fluid given in total Rx: - Nephrology consulted, started Tablo dialysis - Rasburicase 3mg IV x1 ordered, not available overnight. - Allopurinol 300 mg twice daily for now - Follow q4hr CMP, Mg, Phos, UA and renal function #Chronic Anemia #Chronic Thrombocytopenia #Leukocytosis Chronic anemia and thrombocytopenia likely due to combination of chemo treatment, met cancer, cirrhosis Leukocytosis likely due to septic shock Dx: -WBC 9.6 (11.9), hgb 7.8 (9.5), PLT 72 (106) -Tmax 102.9 overnight for ~1 hour Rx: -Treat septic shock; will continue to monitor cbc -PRBC if hgb drops below 7 #Coagulopathy Multifactorial, patient has chronic cirrhosis with newly found liver mets, patient presented with azotemia (ARF) in setting of septic shock Dx: -PT 13.5, APTT 39.3, d-dimer >3820 Rx: -Monitor for s/s of bleeding/ bruising -SCDs for DVT prophylaxis RENAL: RAMSES/ARF Anion gap metabolic acidosis Lactic Acidosis Hyperphosphatemia Hyperuricemia Hyperkalemia, resolved ARF due to septic shock; contributing factor of tumor lysis syndrome i/s/o chemo Metabolic acidosis w/ incomplete respiratory compensation due to shock E-lyte derangements due to tumor lysis syndrome Dx: - RAMSES: BUN 113 ->106, Cr 4.7 (baseline 1.2?1.3) and GFR 13 - Hyperkalemia 6.1 -> 5.4 -> 5.1 - Hyperphosphatemia 6 -> 7.1 -> 6.1 - Bicarb 14.6 -> 16.9 -> 16.2 - URIC ACID 15.5 -> 14.0 - Lactic acid 2.1 -> 2.1 on pm draw Rx: - Tablo dialysis 02/02 - Treating septic shock; q4hr renal panel - Patient was given total 5.5 L IV fluids + Albuterol + insulin 7.5 units and dextrose for HyperK - Sevelamer 800mg x1 PO via OGT - Rasburicase 3mg IV x1 ordered, unable to be given overnight. - Started on allopurinol 300 mg twice daily for hyperuricemia - Nephrology Dr Parker consulted for further recommendations #Hyperchloremic Hypernatremia Due to large amounts of normal saline infusions for septic shock Dx: - Sodium 149, Chloride 115 - Was given total 5.5 L IV fluids Rx: - Anticipate correction on daily draws - Trending with q4hr renal panel labs ENDO: Hyperglycemia Due to Dextrose IV fluids Dx: - glucose 282 -> 348 - given 1.5 L D5/Half NS Rx: - Blood sugar goal 140-180 mg/dl ID: Aspiration Pneumonia Dx: -Admission labs of Pro-Anup 165.61, mild leukocytosis 11.9 -Tmax 102.9 overnight for ~1 hour -CXR showed significant bibasilar pneumonia Rx: -Cefepime & Vancomycyin (02/02- - BCx and MRSA ordered RRx: Patient received IV Zosyn 3.375 x 1 in the ED. Disposition: ICU for Septic Shock DVT prophylaxis: SCD's GI prophylaxis: Protonix 40 mg IV BID Diet: NPO Zhao: yes Lines: Peripherals Drips: levo, vaso Vent: AC/VC mode CODE STATUS: DNR Patient plan of care was discussed with the attending physician, Dr. Jack & senior resident Dr. Neo Lowery MD PGY-1
--- NOTE | 2025-02-02 10:46 | ESOP_ITS ---
<Statement entered by Evan Jack MD - 02/02/25 13:07> I was present for the critical and luna portions of the procedure and was immediately available to provide assistance. The following corrections were made to the resident's note: Initial attempts at passing the temporary hemodialysis catheter over the wire and into the vein failed. PGY 1 and PGY 3 both attempted but resistance was met and the wire was kinked. Therefore a new hemodialysis catheter was used and the wire was exchanged over a dilator with a new wire. I personally placed the temporary triple-lumen Medcomp 20 cm hemodialysis catheter without complications. PROCEDURES: Procedure Date / Time 02/02/25 0830 Procedure Narrative Procedure Narrative: A time out was performed. My hands were washed immediately prior to the procedure. I wore a surgical cap, mask with protective eyewear, sterile gown and sterile gloves throughout the procedure. The RIGHT inguinal region was prepped using chlorhexidine scrub and draped in sterile fashion using a full drape and sterile probe cover and sterile gel employed. The femoral pulse was identified. Anesthesia was achieved using 1% lidocaine. Palpating the femoral pulse throughout the procedure, the introducer needle was inserted medial to the femoral artery, inferior to the inguinal crease and into the femoral vein. Venous blood was withdrawn. The syringe was removed and a guidewire was advanced into the introducer needle. A small incision was made at the skin surface with a scalpel and the introducer needle was exchanged for a dilator over the guidewire. After appropriate dilation was obtained, the dilator was exchanged over the wire for a central venous catheter. The wire was removed and the catheter was sutured in place at 15 cm. A sterile sorbaview shield was placed over the catheter at the insertion site. The patient tolerated the procedure without any hemodynamic compromise. At time of procedure completion, all ports aspirated and flushed properly. Estimated blood loss is 5 ml Patient plan of care was discussed with the attending physician, Dr. Guero Lowery MD PGY-1 Central Line Placement Right Femoral: Indication(s): shock Informed consent obtained: obtained from surrogate decision maker Time out done, and the following verified: correct patient, side and site, procedure and patient position Patient placed on monitor/pulse ox: Yes Hand Hygiene: scrub and soap & water Max Sterile Barrier Techniques used: cap, mask, sterile gown and sterile gloves Central line prep: Chlorhexidine scrub and sterile drapes applied Local anesthesia used: lidocaine 1% Amount of anesthesia used (mL): 5 Ultrasound used for placement: Yes Sterile Technique if Ultrasound used, including sterile gel: yes Central line lumen inserted: triple Post procedure: sutured in place, good blood return and all ports aspirated, flushed, capped Post procedure x-ray: other (not needed) Patient tolerated procedure: well EBL(ml): 5 Complications: none
--- NOTE | 2025-02-02 11:08 | ESCONSULT_ITS ---
HPI Data of Consult Consult date: 02/02/25 Requesting Physician: Gen Richards MD Admitting Provider: Gen Richards MD Attending Provider: Gen Richards MD Primary Care Provider: Physician No Primary/Family Consult Narrative Reason for consult: RAMSES, hyperkalemia History of present illness: Consult Reason: Acute kidney injury (RAMSES) in the setting of tumor lysis syndrome (TLS), hyperkalemia, hyperphosphatemia, hyperuricemia, and metabolic acidosis. Mr. 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 The patient underwent intubation on 02/01/2025, and is being managed for septic shock, possible tumor lysis syndrome, and acute renal failure. The patient?s condition was discussed with the family, and his code status has been changed to DNR. The family is in agreement with proceeding with hemodialysis. The patient is undergoing continuous renal replacement therapy (CRRT). 02/02/2025: Patient is sedated and intubated, remains in the ICU. Family has been in constant communication and was updated about the patient's prognosis and the need for dialysis. They are in agreement with all measures. Labs: WBC 9.6, Hemoglobin 7.8, Hematocrit 25.3, Platelets 72, Sodium 146 (corrected 150), Potassium 5.1, Chloride 113, Carbon Dioxide 16.7, BUN 94, Creatinine 4.4, GFR 14, Glucose 282, Lactic Acid 2.2, Uric Acid 14 (from 15.5 yesterday), Calcium 9.7, Phosphorus 7.1, Magnesium 2.3, AST 136, ALT 61, Alkaline Phosphatase 536. cc:: cc: Gen Richards MD Review of Systems Review of Systems ROS Unobtainable: unobtainable due to medical condition and due to endotracheal tube Past Medical History Past Medical History NEUROLOGIC: Negative Neurological Disorders, Cerebrovascular Accident, Transient Ischemic Attacks (TIA), Dementia, Alzheimer's Disease, Parkinson's Disease, Brain Tumor, Meningitis, Seizures, Epilepsy, Multiple Sclerosis, Cerebral Palsy, Amyotrophic Lateral Sclerosis (ALS/Ching Gehrig's), Guillain-Olmitz Syndrome, Spina Bifida, Paralysis, Peripheral Neuropathy, Navarrete's Palsy, Subdural Hematoma, Migraine, Head Trauma, Spinal Cord Injury or Traumatic Brain Injury CARDIAC: Negative Cardiac Disorders, Myocardial Infarction, Cardiac Arrhythmia, Atrial Fibrillation, Angina, Heart Murmur, Coronary Artery Disease, Atherosclerotic Heart Disease, Peripheral Vascular Disease, Hypercholesterolemia, Aneurysm, Congestive Heart Failure, Congenital Heart Disease, Valvular Heart Disease, Rheumatic Fever, Cardiomyopathy, Edema, Pericarditis, Cellulitis, Deep Vein Thrombosis, Hypertension, Hypotension or Varicose Veins RESPIRATORY: Positive Asthma; Negative Chronic Obstructive Pulmonary Disease (COPD), Bronchitis, Emphysema, Pneumonia, Pulmonary Fibrosis, Cystic Fibrosis, Tuberculosis, Pulmonary Embolism, Pulmonary Edema or Sleep Apnea GASTROINTESTINAL: Positive Cirrhosis; Negative Gastrointestinal Disorders, Hepatitis, Pancreatitis, Celiac Disease, Gall Bladder Disease, Gastrointestinal Bleed, Esophageal Varices, Sanchez's Esophagus, Colitis, Ulcerative Colitis, Diverticulitis, Diverticulosis, Ulcer, Colorectal Cancer, Irritable Bowel, Crohn's Disease, Obstructive Bowel, Hiatal Hernia, Hemorrhoids, Gastroesophageal Reflux Disease or Obesity GENITOURINARY: Negative Genitourinary Disorders, Renal Disease, Kidney Stones, Polycystic Kidney Disease, Neurogenic Bladder, Inguinal Hernia, Dialysis, Prostate Cancer or Benign Prostatic Hyperplasia REPRODUCTIVE: Negative Breast Cancer or Testicular Cancer MUSCULOSKELETAL: Negative Musculoskeletal Disorders, Muscular Dystrophy, Myasthenia Gravis, Marfan's Syndrome, Bone Cancer, Arthritis, Rheumatoid Arthritis, Osteoporosis, Gout, Scoliosis, Carpal Tunnel Syndrome, Fibromyalgia, Fractures, Degenerative Joint Disease, Osteomyelitis or Poliovirus ENT: Negative Cataracts, Glaucoma, Blind, Retinal Detachment, Macular Degeneration, Ear Infection, Deafness, Head Trauma or Eye Prosthesis ENDOCRINE: Negative Endocrine Disorders, Diabetes Mellitus Type 1, Diabetes Mellitus Type 2, Hypoglycemia, [place]'s Syndrome, Wade's Disease, Hyperthyroidism, Hypothyroidism, Parathyroid Disease, Pituitary Disease, Systemic Lupus Erythematosus, Syndrome of Inappropriate Antidiuretic Hormone (SIADH), Adrenal Disease or Graves' Disease HEMATOLOGIC: Positive Anemia; Negative Blood Disorders, Leukemia, Hemophilia, Thalassemia, Sickle Cell Disease or Clotting Problems PSYCHO/SOCIAL: Negative Psychiatric Problems, Schizophrenia, Recreational Drug Use, Bipolar Disorder, Depression, Anxiety, Behavior Problems, Self-Mutilation, Attention Deficit Disorder, Attention Deficit Hyperactivity Disorder, Depression, Post Traumatic Stress Disorder or Eating Disorder OTHER HISTORY: Positive Cancer and Lung Cancer; Negative Hospitalization, Autoimmune Disease, Down Syndrome, Autism, Developmental Delay, Shingles, Falls, Blood Transfusions, Blood Transfusion Reaction, Anesthesia Reactions, Organ Transplant, Chemotherapy, Radiation Therapy, Hyperbaric Therapy, MRSA, VRSA, Vancomycin-Resistant Enterococci, Human Immunodeficiency Virus (HIV), Chicken Pox, Measles, Mumps, Rubella (French Measles), Pertussis, Clostridium Difficile, Breast Cancer, Colorectal Cancer, Prostate Cancer or Testicular Cancer Family History FAMILY HISTORY: Positive Family Cancer; Negative Family Psychiatric Problems, Family Respiratory Disorders, Family Cardiac Disorders, Family Gastrointestinal Problems, Family Surgery or Family Anesthesia Reaction OTHER FAMILY HX: Father had lung CA 2008 1 sister had breast cancer paternal uncle had prostate cancer Surgical History SURGICAL: Negative Cardiac Surgery, Open Heart Surgery, Coronary Artery Bypass Graft, Valve Replacement, Vascular Surgery, Coronary Stent, Cardiac Catheterization, Pacemaker, Angiogram, Auto Implanted Cardiovert Defib, Carotid Endarterectomy, Endocrine Surgery, Thyroidectomy, Ear Surgery, Tympanostomy Tube, Eye Surgery, Nose Surgery, Oral Surgery, Tonsillectomy, Adenoidectomy, Cochlear Implant, Corneal Transplant, Throat Surgery, Abdominal Surgery, Tracheostomy, Gastric Bypass Surgery, Gastrostomy, Bowel Surgery, Nephrectomy, Transurethral Resection, Joint Replacement, Amputation, Open Reduction Internal Fixation, Arthroscopy, Neurologic Surgery, Brain Shunt, Vasectomy or Organ Transplant Social History SOCIAL: [id number] history of smoking of [place] descent. SMOKING STATUS: Unknown if ever smoked SUBSTANCE USE: does not use Past Medical History Comments [facility] COMMENT: Lung cancer since 2022 with subsequent spread and multiple complications. Exam Vital Signs Temp Pulse Resp BP Pulse Ox O2 Del Method FiO2 99.3 F 99 25 H 87/53 L 98 Mechanical Ventilation 85 02/01/25 23:53 02/02/25 10:02/02/25 06:13 02/02/25 10:29 02/02/25 10:29 02/01/25 23:53 02/02/25 10:29 Narrative Exam GENERAL APPEARANCE: patient currently seen in ICU. On ventilator. Sick looking. CARDIOVASCULAR: Heart regular, no murmurs LUNGS/CHEST: Chest clear to auscultation. No rales, rhonchi, wheezing ABDOMEN: Soft, nontender, nondistended. No masses. Normal bowel sounds. EXTREMITIES: 1+ edema noted in the lower extremities SKIN: Ecchymosis noted MUSCULOSKELETAL: In bed NEUROLOGICAL : Intubated, sedated Constitutional Comments: General: Sedated, frail. HEENT: Vision grossly intact, scleral icterus Respiratory: Intubated, bilateral breath sounds on auscultation Cardiovascular: S1, S2 normal, RRR, no murmurs, no JVD Abdominal: Distended, BS + Genitourinary: Zhao in place Musculoskeletal: Extremities tone WNL, no LE edema Neurological: Sedated, no gross deficits Skin: Warm, dry, intact, petechiae on bilateral lower extremities, jaundice Results Labs 02/03/25 04:45 02/02/25 23:23 Labs: Short CBC 02/01/25 02/02/25 Range/Units 20:59 05:35 WBC 11.9 H 9.6 (3.8-10.6) Thou/mm3 Hgb 9.5 L 7.8 L (13.5-16.0) g/dL Hct 29.8 L 25.3 L (41.0-53.0) % Plt Count 106 L D 72 L D (140-440) Thou/mm3 BMP 02/01/25 02/02/25 02/02/25 20:59 00:13 05:35 Sodium 144 149 H 146 H Potassium 6.1 H* D 5.4 H D 5.1 Chloride 113 H 115 H 113 H Carbon Dioxide 14.6 L* 16.9 L 16.7 L BUN 113 H* 106 H* 94 H Creatinine 4.6 H* D 4.7 H* 4.4 H* Glucose 101 120 H 282 H D Calcium 10.2 9.2 8.8 Cardiac Enzymes 02/01/25 02/01/25 Range/Units 20:59 20:59 Troponin I 0.024 0.021 (0.0-0.045) ng/mL Liver Function 02/01/25 02/02/25 02/02/25 Range/Units 20:59 00:13 05:35 Total Bilirubin 11.9 H D 12.0 H (0.3-1.2) mg/dL AST 149 H 136 H (0-34) U/L ALT 76 H 61 H (10-49) U/L Alkaline Phosphatase 696 H D 536 H D (46-116) U/L Albumin 3.6 3.2 L 2.9 L (3.4-4.8) gm/dL Urine 02/01/25 Range/Units 21:20 Urine Color Drk-Yellow A (Lt Yel-Yel) Urine Clarity Turbid A (Clear/Hazy) Urine pH 5.5 (5.0-7.0) Ur Specific [place] 1.016 (1.001-1.035) Urine Protein 1+ A (Neg - Trace) Urine Glucose (UA) Negative (Negative) ABG Interpretation ABG results: 02/01/25 02/01/25 02/02/25 21:24 23:06 00:13 ABG pH 7.12 L* 7.18 L* ABG pCO2 46 50 H ABG pO2 198 H 120 H D ABG HCO3 15 L 19 L ABG O2 Saturation 100 H 99 H ABG Base Excess -14 L -9 L VBG pH 7.18 L VBG pCO2 46 VBG pO2 108 H VBG Base Excess -10 L 02/02/25 09:59 ABG pH ABG pCO2 ABG pO2 ABG HCO3 ABG O2 Saturation ABG Base Excess VBG pH 7.39 VBG pCO2 31 L D VBG pO2 53 D VBG Base Excess -5 L Quality Measures Quality Measures sepsis Current suspected stage: sepsis Possible source: other Blood cultures ordered: yes Antibiotic ordered: Yes Medications Home Medications and Allergies Home Medications ?Medication ?Instructions ?Recorded ?Confirmed ?Type gabapentin 100 mg capsule 100 mg PO BID PRN neuromuscu lar 02/02/25 02/02/25 History blockade midodrine 10 mg tablet 10 mg PO Q8HR PRN blood pres sure 02/02/25 02/02/25 History morphine 30 mg tablet,extended 30 mg PO TID PRN pain ( scale score 02/02/25 02/02/25 History release 7-10) Allergies Allergy/AdvReac Type Severity Reaction Status Date / Time No Known Allergies Allergy Verified 02/01/25 21:09 Visit Medications Allopurinol (Allopurinol 100 Mg Tablet) 300 mg GT BID ARI Stop: 03/04/25 01:59 Last Admin: 02/02/25 02:14 Dose: 300 mg Heparin Sodium (Porcine) (Heparin Sod Inj 1000 Unit/Ml Vial 10 Ml) 3,000 unit INDWELLCAT PRN PRN PRN Reason: DIALYSIS Stop: 02/16/25 09:23 Last Admin: 02/02/25 09:49 Dose: 3,000 unit Fentanyl Citrate (Sublimaze Inj 2,500 Mcg/250 Ml Bag) 2,500 mcg in 250 mls @ 2.5 mls/hr IV .Q24H PRN; Protocol PRN Reason: PER PROTOCOL Stop: 02/06/25 21:20 Last Titration: 02/02/25 06:00 Dose: 175 mcg/hr, 17.5 mls/hr Midazolam HCl (Versed Pf Inj In Ns Premix) 100 mg in 100 mls @ 1 mls/hr IV .Q24H PRN; Protocol PRN Reason: PER PROTOCOL Stop: 02/06/25 21:17 Last Titration: 02/02/25 06:00 Dose: 1 mg/hr, 1 mls/hr Norepinephrine/Dextrose (Levophed In D5w 8mg/250ml) 8 mg in 250 mls @ 6.797 mls/hr IV .Q24H PRN; Protocol PRN Reason: PER PROTOCOL Stop: 03/04/25 04:05 Last Titration: 02/02/25 07:00 Dose: 0.13 mcg/kg/min, 17.672 mls/hr Cefepime HCl 1 gm/ Sodium (Chloride) 50 mls @ 100 mls/hr IV QDAY ARI Stop: 02/10/25 08:59 Lactulose (Lactulose Syrup 20 Gm/30 Ml Udc) 20 gm NG QID ARI; Protocol Stop: 03/04/25 00:29 Last Admin: 02/02/25 05:49 Dose: 20 gm Ondansetron HCl (Ondansetron Inj 2 Mg/Ml Inj 2 Ml) 4 mg IVP Q6HR PRN PRN Reason: NAUSEA OR VOMITING Stop: 03/03/25 21:12 Pantoprazole Sodium (Pantoprazole Inj 40 Mg Vial) 40 mg IVP QDAY ARI Stop: 03/04/25 07:29 Last Admin: 02/02/25 10:36 Dose: 40 mg Pharmacy Consult (Vancomycin Pharmacy To Dose 1 Each Each) 1 each IV QDAY PRN PRN Reason: RX Stop: 03/04/25 08:59 Rasburicase (Rasburicase Inj 1.5 Mg Vial (Non-Formulary)) 3 mg IV X1 ONE; Protocol Stop: 02/03/25 15:01 Discontinued Medications Acetaminophen (Acetaminophen Supp 650 Mg Supp) 975 mg ND X1 ONE Stop: 02/01/25 21:16 Last Admin: 02/01/25 21:48 Dose: 975 mg Adenosine (Adenosine Inj 3 Mg/Ml Vial) 6 mg IVP X1 ONE Stop: 02/01/25 21:10 Last Admin: 02/01/25 21:19 Dose: Not Given Albuterol (Albuterol Rt 2.5 Mg/3 Ml Nebu) 10 mg HHN X1 ONE Stop: 02/01/25 22:11 Last Admin: 02/01/25 23:03 Dose: 10 mg Dextrose (Dextrose 50%-Water Inj 50 Ml Syringe) 50 ml IVP X1 ONE Stop: 02/02/25 00:18 Last Admin: 02/02/25 00:49 Dose: 50 ml Enoxaparin Sodium (Enoxaparin Sod Inj 40 Mg/0.4 Ml Syringe) 30 mg SC QPM ARI Stop: 02/16/25 20:59 Etomidate (Etomidate Inj 2 Mg/Ml Vial 10 Ml) 10 mg IVP X1 ONE Stop: 02/01/25 20:57 Last Admin: 02/01/25 21:02 Dose: 10 mg Famotidine (Famotidine Inj 10 Mg/Ml Vial 2 Ml) 20 mg IVP Q12HR ARI Stop: 03/04/25 08:59 Heparin Sodium (Porcine) (Heparin Sod Inj 1000 Unit/Ml Vial 10 Ml) 2,600 unit INDWELLCAT PRN PRN PRN Reason: DIALYSIS Stop: 02/16/25 09:23 Sodium Chloride (Ns) 1,000 mls @ 999 mls/hr IV .Q1H1M ONE Stop: 02/01/25 22:00 Last Infusion: 02/01/25 22:19 Dose: Infused Lactated Ringer's (Lactated Ringers) 1,000 mls @ 999 mls/hr IV .Q1H1M ONE Stop: 02/01/25 22:13 Last Infusion: 02/01/25 22:59 Dose: Infused Piperacillin/Tazobactam/Dextrose (Zosyn) 3.375 gm in 50 mls @ 100 mls/hr IV X1 ONE Stop: 02/01/25 21:42 Last Infusion: 02/01/25 22:20 Dose: Infused Sodium Chloride (Ns) 1,000 mls @ 999 mls/hr IV .Q1H1M ONE Stop: 02/02/25 00:47 Last Infusion: 02/02/25 00:55 Dose: Infused Lactated Ringer's (Lactated Ringers) 1,000 mls @ 999 mls/hr IV .Q1H1M ONE Stop: 02/02/25 01:14 Last Admin: 02/02/25 01:19 Dose: 999 mls/hr Dextrose/Sodium Chloride (D5-1/2ns) 500 mls @ 150 mls/hr IV .Q3H20M [facility] Stop: 03/04/25 01:29 Last Admin: 02/02/25 08:01 Dose: Not Given Sodium Chloride (Ns 0.45%) 1,000 mls @ 999 mls/hr IV .Q1H1M ONE Stop: 02/02/25 04:30 Last Admin: 02/02/25 02:57 Dose: Not Given Dextrose/Sodium Chloride (D5-1/2ns) 500 mls @ 150 mls/hr IV .Q3H20M ONE Stop: 02/02/25 05:13 Last Admin: 02/02/25 01:56 Dose: 150 mls/hr Dextrose/Sodium Chloride (D5-1/2ns) 1,000 mls @ 250 mls/hr IV .Q4H ONE Stop: 02/02/25 07:29 Last Admin: 02/02/25 03:48 Dose: 250 mls/hr Vancomycin HCl 1,000 mg/ (Sodium Chloride) 250 mls @ 150 mls/hr IV X1 ONE Stop: 02/02/25 06:41 Last Admin: 02/02/25 05:49 Dose: 150 mls/hr Cefepime HCl 2 gm/ Sodium (Chloride) 50 mls @ 100 mls/hr IV Q12HR [facility] Stop: 02/10/25 08:59 Cefepime HCl 2 gm/ Sodium (Chloride) 50 mls @ 100 mls/hr IV X1 ONE Stop: 02/02/25 06:50 Last Admin: 02/02/25 07:08 Dose: 100 mls/hr Insulin Human Regular (Insulin Hum Regular 1 Unit/0.01 Ml (Per Unit)) 7.5 unit 0.1 unit/kg (7.5 unit) IV X1 ONE Stop: 02/02/25 00:19 Last Admin: 02/02/25 00:55 Dose: 7.5 unit Lidocaine HCl (Lidocaine Hcl 1% 20 Ml Vial) 20 ml INFL X1 ONE Stop: 02/02/25 08:55 Last Admin: 02/02/25 10:32 Dose: Not Given Lidocaine HCl (Lidocaine Hcl 1% 20 Ml Vial) 5 ml IM X1 ONE Stop: 02/02/25 08:55 Last Admin: 02/02/25 10:32 Dose: 5 ml Rocuronium [place] (Rocuronium Inj 10 Mg/Ml Vial 10 Ml) 70 mg IV X1 ONE Stop: 02/01/25 20:57 Last Admin: 02/01/25 21:06 Dose: 70 mg Sevelamer Carbonate (Sevelamer Carbonate 800 Mg Tablet) 800 mg NG X1 ONE Stop: 02/02/25 00:20 Last Admin: 02/02/25 01:52 Dose: 800 mg Sodium Bicarbonate (Sodium Bicarb Inj 8.4% 1 Meq/Ml 50 Ml Vial) 100 meq IV X1 ONE Stop: 02/01/25 21:51 Last Admin: 02/01/25 22:17 Dose: 100 meq Sodium Chloride (Sodium Chloride Rt 10% 15 Ml Nebu) 5 ml INH X1 ONE Stop: 02/01/25 22:05 Last Admin: 02/01/25 23:47 Dose: Not Given Assessment & Plan Plan 64-year-old male with 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 # Acute kidney injury # Acute renal failure Acute kidney injury in the setting of tumor lysis syndrome, complicated by elevated BUN and creatinine. Plan: * Continue CRRT for fluid management and electrolyte correction. * Monitor renal function and urine output. * Adjust dialysis parameters as needed. # Hyperkalemia Potassium level of 5.1, improved with fluid and insulin therapy. Plan: * Continue monitoring potassium levels closely. * Adjust CRRT parameters for potassium removal as necessary. # Hyperphosphatemia Phosphorus elevated at 7.1, improving with phosphate binders. Plan: * Continue sevelamer 800 mg PO. * Monitor phosphorus levels and adjust treatment accordingly. # Hyperuricemia Uric acid elevated at 14. Plan: * Continue allopurinol 300 mg BID. * If uric acid remains elevated, consider rasburicase. * Hold allopurinol prior to rasburicase administration to prevent the accumulation of xanthine and hypoxanthine, which can increase the risk of xanthine nephropathy due to inhibited breakdown by allopurinol. # Non-Anion Gap Metabolic Acidosis: Metabolic acidosis with low bicarbonate levels. Improved with bicarbonate infusion. Plan: * Continue bicarbonate infusion. * Reassess bicarb and pH. * Monitor for resolution of acidosis. ----- Plan discussed with attending physician Dr. Keith Edwards MD PGY-1 Internal Medicine Attending Provider Attestation/Addendum Patient seen and examined with resident physician Dr. Edwards. Note reviewed, agree with findings and recommendations. Patient currently seen in ICU. Patient with RAMSES, metabolic acidosis, hyperkalemia and minimal urinary output in the setting of tumor lysis syndrome. Decided to proceed with dialysis. Patient currently on 2 pressors-decided to proceed with CRRT. CRRT for 24 hours 3K 3.5 calcium 40 bicarbonate No heparin Citrasate Blood flow 100-150 Dialysate flow 100 Saline flushes 80-100 mL/h No ultrafiltration Renal panel Q Every 6 hours while on CRRT. Orders given to ICU nurse. Critical care time spent more than 45 minutes regarding plan of care and disease management. Overall prognosis remains poor. Noted family earlier this morning made him DNR. Goals of care will be discussed with family again today. Thank you Dr. Jack for allowing me to participate in the care of Mr. Garza
--- NOTE | 2025-02-02 11:15 | XR_ITS ---
Examination: CT chest with intravenous contrast CT abdomen with intravenous contrast CT pelvis with intravenous contrast 2-D coronal and sagittal reconstructions Time of exam: February 02, 2025, 1213 hours INDICATIONS: Elevated total bilirubin and liver function tests and laboratory examination this week, diagnosis metastatic cancer, diagnosis cirrhosis, widespread osteoblastic metastatic disease on CT abdomen/pelvis December 03, 2024 CTDI: vol (mGy) : 11.6 DLP: (mGycm): 931 Technique: Multiple axial images of the chest, abdomen and pelvis with intravenous contrast, 3.0 mm slice thickness. Images obtained post intravenous injection Isovue 370 60 cc. 2-D sagittal and coronal reconstructions. Low dose protocols were performed. One or more of the following dose reduction techniques were used; automated exposure control, adjustment of the mA and/or KV according to patient size, use of iterative reconstruction technique. Findings: Tracheal tube tip 2.2 cm above gaudencio No thoracic aortic aneurysmal dilatation No pulmonary artery filling defects on this 9 CTA study Extensive bilateral pneumonia both in the upper lobes and primarily in lung bases Small pleural effusions Mild enlargement cardiac contour Liver irregular in contour with numerous hepatic lesions ranging in size from 2 to 20 mm Spleen is not enlarged Orogastric tube in the stomach Left adrenal metastatic mass 20 mm No pancreatic mass Gallbladder wall is thickened No hydronephrosis Moderate ascites Abundant stool in the right colon Thickening of the colonic wall, hepatic colopathy pattern Appendix is not diagnostically visualized No bowel obstruction Normal seminal vesicles Recommend deflating the urinary Zhao catheter and advancing 3 cm Contracted urinary bladder Fat-containing inguinal hernias Mild prostatomegaly Widespread osteoblastic metastatic disease involving axial skeleton ribs Acute/subacute severe compression fracture of L1 vertebral body, retropulsion of the posterior superior margin of this vertebral body 4 mm Extensive osteoblastic metastatic disease involving the sacrum and iliac bones posterior left acetabulum bilateral hips IMPRESSION: Tracheal tube tip 2.2 cm above gaudencio Extensive bilateral pneumonia Cirrhosis Numerous hepatic lesions, consider multifocal primary Jewel liver disease, hepatic metastases 20 mm left adrenal mass Moderate ascites Gallbladder wall is thickened, consider HIDA scan or MRCP follow-up Hepatic colopathy No bowel obstruction Widespread osteoblastic metastatic disease with acute/subacute severe compression fracture of L1, retropulsion of the posterior superior margin of this vertebral body 4 mm Recommend deflating the urinary Zhao catheter balloon and advancing the Zhao catheter 3 cm
--- NOTE | 2025-02-02 11:15 | XR_ITS ---
Examination: CT brain head without contrast. 2-D sagittal coronal reconstructions Date and time of exam: February 02, 2025, 1204 hours INDICATIONS: Altered mental status today CTDI: vol (mGy): 51.2 DLP: (mGycm): 1041 Technique: Multiple CT axial sections of the brain have been obtained, 5 mm slice thickness. Contrast has not been administered. 2-D sagittal, coronal reconstructions have been obtained Low dose protocols were performed. One or more of the following dose reduction techniques were used; automated exposure control, adjustment of the mA and/or KV according to patient size, use of iterative reconstruction technique. Findings: 3.1 cm hypodense mass right parietal lobe with surrounding edema, image 16 15 mm hyperdense mass right temporal lobe with surrounding edema image 22 16 mm hypodense mass with surrounding edema left occipital lobe image 24 18 mm hypodense mass right temporal lobe with surrounding edema image 27 16 mm hyperdense mass left temporal lobe with surrounding edema image 29 No acute hemorrhage No midline shift Cranial vault intact IMPRESSION: Multiple cerebral metastases, recommend brain MRI follow-up pre and postcontrast
[2025-02-02 11:47] LABS: Albumin, Serum 3.0 gm/dL (3.4-4.8); Anion Gap 15 (7-16); BUN/Creatinine Ratio 20 Ratio (12-20); Blood Urea Nitrogen 96 mg/dL (9-23); Calcium 8.4 mg/dL (8.3-10.6); Calcium (Corrected) 9.2 mg/dL (8.5-10.1); Carbon Dioxide 16.2 mMol/L (20.0-31.0); Chloride 113 mMol/L (98-107); Creatinine (Component) 4.7 mg/dL (0.6-1.3); Estimated Creatinine Clearance 15.4 mL/min (>60); Glucose 348 mg/dL (74-106); Osmolality,Calculated 330 (275-295); Phosphorous 6.1 mg/dL (2.4-5.1); Potassium 5.1 mMol/L (3.4-5.1); Sodium 144 mMol/L (136-145); eGFR 13 See Note
[2025-02-02] MEDS: VASOPRESSIN IN NS IVPB 20 UNIT/100 ML BAG 9 UNIT IV ×2 (11:51→20:11)
[2025-02-02 12:57] LABS: Slide Review Platelets confirmed
[2025-02-02 13:14] LABS: Reflex Lactate? Y
--- NOTE | 2025-02-02 13:19 | PC.SS ---
PICK UP MAN conducted phone contact with patient?s brother, Jorge Garza ; to conduct initial assessment.? Patient is currently admitted to ICU on mechanical ventilator.? Patient resides at home with family.? Brother reports that patient had previously been discharged from SNF.? Patient utilizes a walker to assist with ambulation.? Patient utilizing oxygen at home.? Patient requires assistance with ADL?s.? Patient?s surrogate medical decision maker is brother, Jorge Garza.? Patient?s PCP is Yuki German.? Patient?s oncologist is Dr. Rutledge.? Patient?s brother reports that cancer treatment is pending.? nutrition services assistant will discuss discharge needs at an appropriate future time.? No further intervention required at this time, social services director will be available to address any further concerns.? Next of Kin: Jorge Kayla D/C Plan: Pending
[2025-02-02] MEDS: Norepinephrine/D5W 8mg/250ml 8 MG/250 ML BAG 39.422 MG IV (13:27)
--- NOTE | 2025-02-02 13:38 | PC.DIETICIAN ---
Nutrition prescription If EN is indicated, consider: Trophic feeds of Nepro at 10 ml/hr via OG tube by pump. If no IV fluids, water flushes of 25 ml/hr (or per MD). Once more stable, advance 10 ml every 8 hrs to goal rate of 40 ml/hr x 24 hrs.
[2025-02-02] MEDS: fentaNYL 2,500 MCG/250 ML BAG 2,500 MCG/250 ML BAG 22.5 MCG IV (13:43)
[2025-02-02 13:52] LABS: Lactic Acid, 3 HR 2.1 mMol/L (0.4-2.0)
--- NOTE | 2025-02-02 14:41 | PC.RT ---
ETT advanced to27cm per MD Jack.
--- NOTE | 2025-02-02 14:45 | PC.RT ---
PT taken to CT with FREDIS Olmos on transport vent, Departed ICU@1158. HR 97/RR25/Spo2 97%. no difficulties in transport and PT brought back to ICU @ approx. 1225. Placed on ventilator on same settings, HR 96/RR26/Spo2 99%.
[2025-02-02] MEDS: HYDROCORTISONE SOD SUCC INJ 100 MG 2 ML VIAL IV (14:58)
--- NOTE | 2025-02-02 15:16 | EVENTNT_ITS ---
<Statement entered by Evan Jack MD - 02/03/25 20:11> TOTAL TIME: 45MINUTES ON DIRECT MEDICAL CARE, MANAGEMENT - COORDINATION AND COUNSELING > 50% OF TOTAL TIME I saw and evaluated the patient. I reviewed the resident?s note and agree with findings and plan as documented in the resident?s note. Documentation for date of: 02/02/25 Event Note Event Note: Goals of care discussion Goals of care discussion was performed in the presence of PGY-2 Resident physician, Dr. Card and PGY-[address] Ojeda. Multiple attempts were made to get certified irish translation semaphore operator from the hospital iPad however the phone continued to get disconnected with no one coming for the service. Few more attempts were Performed through personal phone and we faced similar issue of not getting a hold on a Khmer translation semaphore operator. PGY-3 Resident physician, came and helped in translating the family including patient's , son, and [id number]. Point of contact and decision maker is patient's son who also speaks and understand Dominican. Charge nurse was informed regarding non-availability of Khmer translation semaphore operator. We inquired on what exactly happen overnight and how much they are aware of his clinic illness. Family informed that patient has been having decreased alertness from past couple of days and became completely altered and hypoxic down to 80% at home yesterday [02/01] at night. 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 This was informed to them prior to yesterday at [facility]. Due to sudden decline they called EMS and brought him to the ED. Overnight, Family was informed that patient has Pneumonia, acute kidney failure and tumor lysis syndrome. He would require dialysis for ARF that might help with neurological recovery. Of note, CODE status was changed to DNR later in night by Silk Brusher after discussing with patients' son. We informed about our assesment this morning that Patient is in septic shock, AHRF due to extensive pneumonia, and ARF. Additionally, We showed the family from the EMR workstation CT imagings which were performed in the morning. 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 Given those findings, patient's family was informed that neurological recovery at this point is less likely with Tablo/dialysis as his cancer has advanced to his brain. Brain metastasis was a new information for them. we explained that Dialysis might help with kidney functions recovery however it will not help the patient to get awake and interact with the family again. They asked for further plan and what we suggest. We brought up that we are aware there was a discussion on hospice before but due to his advance cancer mets to brain, liver and bone route of comfort care is appropriate due to his poor prognosis. Family has been understanding to the explanation however they wanted to wait for 24 hours with Tablo and see if he rufino get awake and they can say final goodbyes. They were aware and agreeable if patient does not improve or wakes up tomorrow they would like to proceed with extubation and comfort care to make him more comfortable. We we will proceed with family wishes. However, they were made aware that patient is critically sick and is already on 2 pressors with broad-spectrum antibiotics along with Tablo he can deteriorate anytime even before that 24-hour time has reached. They expressed understanding regqrding patient's prognosis and possibilty of sudden overnight. Funeral Director/Embalmer, Dr. Jack is aware of goals of care discussion with the family and agreeable to the plan. -- David Larson MD, PGY 3
[2025-02-02 17:22] LABS: Albumin, Serum 3.2 gm/dL (3.4-4.8); Anion Gap 13 (7-16); BUN/Creatinine Ratio 21 Ratio (12-20); Blood Urea Nitrogen 62 mg/dL (9-23); Calcium 8.5 mg/dL (8.3-10.6); Calcium (Corrected) 9.1 mg/dL (8.5-10.1); Carbon Dioxide 23.1 mMol/L (20.0-31.0); Chloride 105 mMol/L (98-107); Creatinine (Component) 3.0 mg/dL (0.6-1.3); Estimated Creatinine Clearance 24.1 mL/min (>60); Glucose 193 mg/dL (74-106); Osmolality,Calculated 303 (275-295); Phosphorous 3.7 mg/dL (2.4-5.1); Potassium 4.4 mMol/L (3.4-5.1); Sodium 141 mMol/L (136-145); eGFR 22 See Note
[2025-02-02] MEDS: HYDROCORTISONE SOD SUCC INJ 100 MG 2 ML VIAL 50 MG IV ×2 (17:33→23:44)
[2025-02-02] MEDS: ALBUMIN HUMAN-KJDA 25% IVPB 25 GM/100 ML BTL IV ×2 (19:18→20:56)
[2025-02-02] MEDS: Norepinephrine/NS 16mg/250ml 16 MG/250 ML BAG 25.148 MG IV (19:24)
--- NOTE | 2025-02-02 20:15 | PC.RT ---
ETT FOUND AT 27 AT THE TEETH. RT HARIS GIVING REPORT STATES DR. BOUCHER INSTRUCTED HER TO ADVANCE TUBE WITH NO FOLLOW UP X-RAY. CHARGE JAZMYN RN CALLED DR BAHEAN ASKING FOR F/U X-RAY BUT DUE TO THE FACT PT'S LAST ABG LOOKED GOOD, DR. BAHENA ALSO REFUSED X-RAY.
--- NOTE | 2025-02-02 20:17 | PC.NURSE ---
ETT 27 at the [facility], called and verified with MD Landa that there were no chest xray images for verification of placement post adjustment of tube earlier in the day shift. vbg and lab values given, per MD pt is saturating well and labs results good. no need for chest xray. will continue to monitor lab values and pt, will acquire chest xray if status changes.
[2025-02-02 23:56] LABS: Albumin, Serum 3.9 gm/dL (3.4-4.8); Anion Gap 11 (7-16); BUN/Creatinine Ratio 17 Ratio (12-20); Blood Urea Nitrogen 25 mg/dL (9-23); Calcium 9.1 mg/dL (8.3-10.6); Calcium (Corrected) 9.2 mg/dL (8.5-10.1); Carbon Dioxide 26.6 mMol/L (20.0-31.0); Chloride 99 mMol/L (98-107); Creatinine (Component) 1.5 mg/dL (0.6-1.3); Estimated Creatinine Clearance 48.1 mL/min (>60); Glucose 130 mg/dL (74-106); Osmolality,Calculated 280 (275-295); Phosphorous 2.4 mg/dL (2.4-5.1); Potassium 3.8 mMol/L (3.4-5.1); Sodium 137 mMol/L (136-145); eGFR 52 See Note
[2025-02-03] VITALS (113 sets, daily range): BP systolic 80–142; BP diastolic 50–107; PULSE 85–116; RESP 13–33; TEMP 36–37; O2SAT 96–100
[2025-02-03] MEDS: fentaNYL 2,500 MCG/250 ML BAG 2,500 MCG/250 ML BAG 17.5 MCG IV (01:36)
[2025-02-03] MEDS: HYDROCORTISONE SOD SUCC INJ 100 MG 2 ML VIAL 50 MG IV ×4 (05:31→23:47)
[2025-02-03] MEDS: LACTULOSE SYRUP 20 GM/30 ML UDC NG ×4 (05:31→21:23)
[2025-02-03 06:32] LABS: Basophils # (Auto) 0.0 Thou/mm3 (0.0-0.2); Basophils % (Auto) 0 % (0-2.5); Eosinophils # (Auto) 0.0 Thou/mm3 (0.0-0.5); Eosinophils % (Auto) 0 % (0-10); Hematocrit 23.5 % (41.0-53.0); Immature Granulocytes Auto 0.24 Thou/mm3 (0.00-0.00); Lymphocytes # (Auto) 0.3 Thou/mm3 (1.0-4.8); Lymphocytes % (Auto) 3 % (10-50); Mean Corpuscular HGB Conc 32.3 g/dl (31.0-37.0); Mean Corpuscular Hemoglobin 30.9 pg (25.0-35.0); Mean Corpuscular Volume 96 fL (80-100); Monocytes # (Auto) 0.6 Thou/mm3 (0.0-0.8); Monocytes % (Auto) 6 % (0-12); Neutrophils # (Auto) 8.6 Thou/mm3 (1.8-7.7); Neutrophils % (Auto) 88 % (37-80); Nucleated Red Blood Cell # 0.08 Thou/mm3 (0.00-0.00); Nucleated Red Blood Cell % 1 /100 WBC (0); RDW Standard Deviation 90.3 fL (35.1-43.9); Red Blood Count 2.46 Miln/mm3 (4.50-5.90); White Blood Count 9.7 Thou/mm3 (3.8-10.6)
[2025-02-03] MEDS: VASOPRESSIN IN NS IVPB 20 UNIT/100 ML BAG 9 UNIT IV ×2 (06:51→18:21)
[2025-02-03 06:59] LABS: Alanine Aminotransferase 57 U/L (10-49); Albumin, Serum 3.7 gm/dL (3.4-4.8); Albumin/Globulin Ratio 1.3 (1.2-2.2); Alkaline Phosphatase 460 U/L (46-116); Anion Gap 12 (7-16); Aspartate Amino Transferase 113 U/L (0-34); BUN/Creatinine Ratio 17 Ratio (12-20); Bilirubin,Total 10.2 mg/dL (0.3-1.2); Blood Urea Nitrogen 19 mg/dL (9-23); Calcium 8.8 mg/dL (8.3-10.6); Calcium (Corrected) 9.0 mg/dL (8.5-10.1); Carbon Dioxide 28.3 mMol/L (20.0-31.0); Chloride 96 mMol/L (98-107); Creatinine (Component) 1.1 mg/dL (0.6-1.3); Estimated Creatinine Clearance 65.6 mL/min (>60); Globulin 2.8 gm/dL (2.3-3.5); Glucose 117 mg/dL (74-106); Magnesium 1.7 mg/dL (1.6-2.6); Osmolality,Calculated 275 (275-295); Phosphorous 2.1 mg/dL (2.4-5.1); Potassium 3.6 mMol/L (3.4-5.1); Sodium 136 mMol/L (136-145); Total Protein 6.5 gm/dL (5.7-8.2); eGFR > 60 See Note
[2025-02-03 07:03] LABS: Hemoglobin 7.6 g/dL (13.5-16.0); Platelet Count 50 Thou/mm3 (140-440)
[2025-02-03 08:26] LABS: Vancomycin,Random 4.4 mcg/mL
[2025-02-03] MEDS: Magnesium Sulfate 2 GM Ivpb 2 GM/50 ML BAG IV (08:57)
[2025-02-03] MEDS: CEFEPIME INJ 1 GM in SODIUM CHLORIDE 0.9% (Popper) 50 ML IV (09:05)
[2025-02-03 10:27] LABS: Slide Review Platelets confirmed
--- NOTE | 2025-02-03 11:16 | ESPR_ITS ---
<Statement entered by Evan Jack MD - 02/04/25 08:30> TOTAL CC TIME: 45 MIN I saw and evaluated the patient. I reviewed the resident?s note and agree with findings and plan as documented in the resident?s note. Upon my evaluation, this patient had a high probability of imminent or life- threatening deterioration due to septic shock, acute hypoxic resp failure, atn which required my direct attention, intervention, and personal management. This time is exclusive of time spent on procedures, which are documented separately if performed. d/w nephrology cont plans for FUELER remains on pressors - weaning MV as able dynamics acceptable Pplt no autopeep unable to extubate due to hemodyanmics and severe encephalopathy sedation(fentanyl) weaned and pt has ability to respond minimally - but clearly in pain and agitated - therefore restarted. <Statement entered by Jose Francisco Card MD - 02/03/25 15:01> Patient seen and examined at bedside. I discussed and supervised with the architect internship physician who took care of this patient. I personally saw and examined the patient. I agree with most of the assessment and plan. Plan of care discussed with attending Dr. Jack. 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 He follows up with Dr. Lomax and Dr. Ugarte at the cancer center, last chemotherapy with topotecan on 01/16/2025 and repeated on 01/30/2025 as per oncology note. Patient was brought to the ED with severe hypoxia, oxygen saturations in the low 80s with moderate to severe respiratory distress. Per ED, family stated that patient started to experience altered mental status around 4 PM today, followed by acute drop in oxygen saturations to 80% on room air. Given that the patient was unable to maintain adequate oxygenation on room air, ED intubated around 9 PM on 02/01/2025. Per oncology documentation from 2 days ago, patient was seen at the cancer center after being discharged from rehab, and family was advised at that time to take patient to the ER due to low oxygen sats. Family denied, and took the patient home on oxygen post electrolyte transfusion on 01/30/2025. Family denied any recent signs of infection or other systemic symptoms, however did endorse yellowing of his eyes . Patient was last hospitalized in December 2024, and had a prolonged hospital stay, with extensive discussions with family regarding hospice. Family actively declined hospice at that time. ER physician rediscussed hospice with family on this admission, family reconsidering, however currently want full code with all treatment. ED Course: Vitals in the ED showed soft blood pressure 90/60s, tachycardia 147 and tachypnea 24. Initial laboratory workup remarkable for mild leukocytosis WBC 11.9 neutrophil predominant, normocytic anemia Hb 9.5 MCV 90s, thrombocytopenia plt 106, hyperkalemia 6.1, hyperphosphatemia 6, bicarb 14.6, RAMSES: BUN 106, creatinine 4.7 (baseline 1.2?1.3) and GFR 13. ABG pH 7.18, CO2 50, LFT: T. bili 11.9, ALP 696, AST 149, ALT 76 and elevated LDH 526. Patient also had elevated Pro-Anup 165.61. UA remarkable for 1+ protein, 3+ blood, 1+ bilirubin, 133 RBC, otherwise sterile. On imaging, chest x-ray showed bilateral consolidation, with severe left apical pleural disease. In the ED, patient was given 2.5 L IV fluids, albuterol and insulin 7.5 units for potassium, and started on fentanyl postintubation. 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 Interval History in ICU: 02/02/2025: Patient in the morning was assessed and examined in the ICU, found to be sedated initially on versed and fentanyl; was later switched to fentanyl and ordered propofol for sedation if needed with goal rass of -2. Patient is being mechanically ventillated after being found to have respiratory distress/decompensation. Patient was placed on levophed initially and throughout the day ended up needing vasopressin. Neprhology was consulted and recommended patient get TABLO dialysis for elevated uric acid levels, electrolyte derangements along with metabolic acidosis. Patient's family was consented for central line and was placed after that. Patient had CT imaging done of head that found mets and imaging of chest/abdomen/pelvis which was significant for hepatic mets, extensive bilatereal pneumonia, cirrhosis, 20 mm left adrenal mass, moderate asicites, and widespread osteoblastic metastatic disease. Patient's family early this morning had a discussion with ED physicians regarding poor prognosis and patient was switched to DNR. Refer to event note for more details. Patient's family later in the day were informed of the imaging and opted to have dialysis continued for 24 hours with hope for improvement & also said they will reassess after the 24 hours after dialysis started for comfort care. Family showed understanding and all of their questions were answered. 02/03/2025: Patient had no acute overnight events. Patient continues to be sedated on fentanyl. Patient was being weaned down on sedation in order to assess patient's mentation and patient began to show signs of agitation/pain -> increased the sedation back up to keep the patient comfortable. Patient continues to be on mechanical ventilation with no acute changes to them. Patient continues to be on levophed, currently at 0.13 and continues to be on vasopressin, hydrocortisone 50 mg q6hr. Patient's ET sputum cultures came back and cultured GNR, continuing cefepime & DC'd vancomycin, MRSA nares negative as well. Will plan to contact patient's family for updates today. Exam Vital Signs Temp Pulse Resp BP Pulse Ox O2 Del Method FiO2 97.1 F 91 25 H 105/67 100 Mechanical Ventilation 80 02/03/25 08:00 02/03/25 11:00 02/02/25 13:31 02/03/25 11:00 02/03/25 11:00 02/01/25 23:53 02/03/25 10:34 Narrative Exam General: Sedated, Intubated Skin: Warm, dry, intact, no obvious rash. Jaundiced HENT: NCAT, PERRL, Scleral Icterus present. External ears normal. No rhinorrhea. Dry mucous membranes Cardiovascular: Regular rate and rhythm, no murmur, +S1/S2. Respiratory: Lungs CTAB on anterior auscultation GI: Distended, firm, bowel sounds present; hepatomegaly : No suprapubic tenderness. No flank tenderness bilaterally. Extremities: no edema, no cyanosis, no clubbing. Extremity pulses present; C lubbing Neuro: RASS -4, not withdrawing to pain; PERRL; babinkski not present; Objective Labs 02/03/25 04:45 02/03/25 10:30 Labs: Laboratory Results - last 24 hr 02/02/25 02/02/25 02/02/25 05:35 11:12 13:46 WBC RBC Hgb Hct MCV MCH MCHC RDW Std Deviation Plt Count Neut % (Auto) Lymph % (Auto) Hood % (Auto) Eos % (Auto) Baso % (Auto) Neut # (Auto) Lymph # (Auto) Hood # (Auto) Eos # (Auto) Baso # (Auto) Immature Gran # (Auto) Absolute Nucleated RBC Immature Gran % Nucleated RBC % Sodium 144 Potassium 5.1 Chloride 113 H Carbon Dioxide 16.2 L Anion Gap 15 BUN 96 H Creatinine 4.7 H* Estim Creat Clear Calc 15.4 L eGFR 13 L* BUN/Creatinine Ratio 20 Glucose 348 H D Calculated Osmolality 330 H Lactic Acid 2.1 H Calcium 8.4 Corrected Calcium 9.2 Phosphorus 6.1 H Magnesium Total Bilirubin AST ALT Alkaline Phosphatase Total Protein Albumin 3.0 L Globulin Albumin/Globulin Ratio Random Vancomycin Misc Test Result Platelets confirmed 02/02/25 02/02/25 02/03/25 16:48 23:23 04:15 WBC RBC Hgb Hct MCV MCH MCHC RDW Std Deviation Plt Count Neut % (Auto) Lymph % (Auto) Hood % (Auto) Eos % (Auto) Baso % (Auto) Neut # (Auto) Lymph # (Auto) Hood # (Auto) Eos # (Auto) Baso # (Auto) Immature Gran # (Auto) Absolute Nucleated RBC Immature Gran % Nucleated RBC % Sodium 141 137 136 Potassium 4.4 D 3.8 D 3.6 Chloride 105 99 96 L Carbon Dioxide 23.1 26.6 28.3 Anion Gap 13 11 12 BUN 62 H 25 H 19 Creatinine 3.0 H D 1.5 H D 1.1 Estim Creat Clear Calc 24.1 L 48.1 L 65.6 eGFR 22 L 52 L > 60 BUN/Creatinine Ratio 21 H 17 17 Glucose 193 H D 130 H D 117 H Calculated Osmolality 303 H 280 275 Lactic Acid Calcium 8.5 9.1 8.8 Corrected Calcium 9.1 9.2 9.0 Phosphorus 3.7 2.4 2.1 L Magnesium 1.7 Total Bilirubin 10.2 H D AST 113 H ALT 57 H Alkaline Phosphatase 460 H D Total Protein 6.5 Albumin 3.2 L 3.9 D 3.7 Globulin 2.8 Albumin/Globulin Ratio 1.3 Random Vancomycin Misc Test Result 02/03/25 02/03/25 04:45 06:50 WBC 9.7 RBC 2.46 L Hgb 7.6 L Hct 23.5 L MCV 96 MCH 30.9 MCHC 32.3 RDW Std Deviation 90.3 H Plt Count 50 L D Neut % (Auto) 88 H Lymph % (Auto) 3 L Hood % (Auto) 6 Eos % (Auto) 0 Baso % (Auto) 0 Neut # (Auto) 8.6 H Lymph # (Auto) 0.3 L Hood # (Auto) 0.6 Eos # (Auto) 0.0 Baso # (Auto) 0.0 Immature Gran # (Auto) 0.24 H Absolute Nucleated RBC 0.08 H Immature Gran % 3 H Nucleated RBC % 1 H Sodium Potassium Chloride Carbon Dioxide Anion Gap BUN Creatinine Estim Creat Clear Calc eGFR BUN/Creatinine Ratio Glucose Calculated Osmolality Lactic Acid Calcium Corrected Calcium Phosphorus Magnesium Total Bilirubin AST ALT Alkaline Phosphatase Total Protein Albumin Globulin Albumin/Globulin Ratio Random Vancomycin 4.4 Misc Test Result Platelets confirmed ABG Interpretation ABG results: 02/01/25 02/01/25 02/02/25 21:24 23:06 00:13 ABG pH 7.12 L* 7.18 L* ABG pCO2 46 50 H ABG pO2 198 H 120 H D ABG HCO3 15 L 19 L ABG O2 Saturation 100 H 99 H ABG Base Excess -14 L -9 L VBG pH 7.18 L VBG pCO2 46 VBG pO2 108 H VBG Base Excess -10 L 02/02/25 09:59 ABG pH ABG pCO2 ABG pO2 ABG HCO3 ABG O2 Saturation ABG Base Excess VBG pH 7.39 VBG pCO2 31 L D VBG pO2 53 D VBG Base Excess -5 L Quality Measures Quality Measures VTE prophylaxis (SCD's) Assessment & Plan Assessment Current Active Medications: Generic Name Dose Route Start Last Admin Trade Name Freq PRN Reason Stop Dose Admin Allopurinol 300 mg 02/02/25 02:00 02/03/25 09:09 Allopurinol 100 Mg Tablet GT 03/04/25 01:59 300 mg BID RAI Administration Heparin Sodium (Porcine) 3,000 unit 02/02/25 09:42 02/02/25 09:49 Heparin Sod Inj 1000 Unit/Ml Vial 10 Ml INDWELLCAT 02/16/25 09:23 3,000 unit PRN PRN Administration DIALYSIS Hydrocortisone Sodium Succinate 50 mg 02/02/25 18:00 02/03/25 11:14 Hydrocortisone Sod Succ Inj 100 Mg 2 Ml Vial IV 03/04/25 17:59 50 mg Q6HR ARI Administration Norepinephrine/Dextrose 8 mg in 250 mls @ 6.797 mls/hr 02/02/25 04:06 02/02/25 19:23 Levophed In D5w 8mg/250ml IV 03/04/25 04:05 Infused .Q24H PRN Titration PER PROTOCOL Protocol 0.05 MCG/KG/MIN Cefepime HCl 1 gm/ Sodium 50 mls @ 100 mls/hr 02/03/25 09:00 02/03/25 09:05 Chloride IV 02/10/25 08:59 100 mls/hr QDAY ARI Administration Propofol 1,000 mg in 100 mls @ 2.175 mls/hr 02/02/25 11:21 Diprivan Ivpb IV 03/04/25 11:20 .Q24H PRN PER PROTOCOL Protocol 5 MCG/KG/MIN Vasopressin/Sodium Chloride 20 unit in 100 mls @ 9 mls/hr 02/02/25 11:34 02/03/25 06:51 Vasostrict/Ns Ivpb IV 03/04/25 11:33 0.03 unit/min .Q11H7M PRN 9 mls/hr PER PROTOCOL Administration Protocol 0.03 UNIT/MIN Norepinephrine Bitartrate 16 mg in 250 mls @ 3.398 mls/hr 02/02/25 19:05 02/03/25 10:00 Levophed In Ns 16mg/250ml IV 03/04/25 19:04 0.13 mcg/kg/min .Q24H PRN 8.836 mls/hr PER PROTOCOL Titration Protocol 0.05 MCG/KG/MIN Fentanyl Citrate 2,500 mcg in 250 mls @ 2.5 mls/hr 02/03/25 09:54 Sublimaze Inj 2,500 Mcg/250 Ml Bag IV 02/06/25 21:20 .Q24H PRN PER PROTOCOL Protocol 25 MCG/HR Lactulose 20 gm 02/02/25 00:30 02/03/25 11:12 Lactulose Syrup 20 Gm/30 Ml Udc NG 03/04/25 00:29 20 gm QID ARI Administration Protocol Ondansetron HCl 4 mg 02/01/25 21:13 Ondansetron Inj 2 Mg/Ml Inj 2 Ml IVP 03/03/25 21:12 Q6HR PRN NAUSEA OR VOMITING Pantoprazole Sodium 40 mg 02/02/25 07:30 02/03/25 08:49 Pantoprazole Inj 40 Mg Vial IVP 03/04/25 07:29 40 mg QDAY ARI Administration Rasburicase 3 mg 02/03/25 15:00 Rasburicase Inj 1.5 Mg Vial (Non-Formulary) IV 02/03/25 15:01 X1 ONE Protocol Plan Mr Garza is a 64-year-old male with a history of 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 Admitted to ICU for management of septic shock. 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 Possible contributing factors of encephalopathy include acute renal failure with severe pre-renal azotemia and metabolic acidosis from shock vs hyperammonemia vs tumor lysis syndrome -> e-lyte derangements. Dx: - Admission labs of Ammonia 92, BUN 106, Cr 4.7, K 6.1, Uric Acid 15.5, Phos 7.1, Bicarb 16.7 - MRI brain in July 2024 confirmed no mets - Head CT 02/02: Multiple cerebral metastases - Family Informed, Will continue to follow up with family for updates Rx: - Changed sedation to fentanyl; ordered propofol; goal RASS of -2 - Dialysis/[facility] for acute renal failure with Uric acid elevation & e-lyte derangements RRx: - Gave 2 amps bicarb - Discontinued Versed for sedation and continue with fentanyl mainly due to mets - use propofol only if needed - Continue stress dose steroids for cerebral metastasis and increased pressor requirement - Family was informed that Prognosis is poor with advance widespread metastasis CVS: Septic Shock DDx: Pneumonia in setting of metastatic small cell lung cancer to brain, liver. Dx: - MAP 50s/60s on presentation - Femoral Central line completed for unequivocal access given earlier RIJ central line attempt - Lactic acid 2.1 -> 1.6 -> 2.1 - Bedside US showed no evidence of RV overload, Low respiratory variation of IVC, Equivocal IVC Rx: -Levophed 0.13, Vasopressin for MAP >65 -Started Hydrocortison 100 mg IV x1 & 50 mg IV q6hr -Cefepime (02/02- RRx: -5.5 L IV fluid given -Vancomycin (02/02-02/03) -Zosyn (02/01) Sinus tachycardia, improved DDx: septic shock Dx: - Initial HR 140-150 bpm on telemetry - On imaging, chest x-ray showed bilateral consolidation, with severe left apical pleural disease. - Total IVF bolus at the time of admission: 4L RX: - Continue to monitor heart rate PULM: Acute Hypoxic respiratory failure Mechanical Ventilation History of stage IV small cell lung cancer (primary) Mechanically ventilated for respiratory failure and inability to protect airway AHRF due to B/L pneumonia consolidations and adv small cell lung cancer (last chemotherapy 01/30) PE less likely after bedside US showed no evidence of RV overload; aspiration pneumonia suspected as patient had altered mental status and imaging showing significant bibasilar pneumonia. -(oncology, Dr. Rutledge and radiation, Dr. Ugarte) Dx: - ABG overnight showed metabolic acidosis. After interventions, improved with most recent ABG 7.39 pH, pco2 31, po2 53 - Regarding Metastatic Lung cancer, Patient's son made the decision earlier in the morning to change Code Status to DNR after extensively being informed of poor prognosis and high probability of rapid decline. Rx: - Continue Intubation on MV: ACVC; will contact family for updates - Extensive pneumonia being treated with antibiotics GI: Liver metastasis due to Small cell lung cancer Hyperammonemia Jaundice 2/2 Hyperbilirubinemia Hepatitis Hypoalbuminemia Distended abdomen DDx: Newly found mets in liver i/s/o chronic cirrhosis Dx: - 02/02: LFT: T. bili 11.9, ALP 696, AST 149, ALT 76; Albumin 3.2, Ammonia 92 - CT AP 02/02 showed Cirrhosis; Numerous hepatic lesions, consider multifocal primary Jewel liver disease, hepatic metastases (hepatic lesions ranging in size from 2 to 20 mm); moderate ascites; hepatic colopathy; -US Abd 02/02: Abnormal thickening gallbladder wall, Moderate hepatomegaly, cirrhosis, mild ascites; Normal hepatopetal portal venous flow; CBD 0.4 cm Rx: - Trend LFTs with daily labs and continue tablo -Obstruction in biliary tract can not be relieved due to metastatic liver disease HEME/ONC: Tumor lysis syndrome Stage IV metastatic small cell lung cancer Dx: - Follows Dr. Rutledge, Dr. Ugarte at the cancer center - Started on chemotherapy with Topotecan on 01/16/2025 and repeated on 01/30/2025 as per oncology note. - Admission labs: RAMSES: BUN 113 ->106, Cr 4.7 (baseline 1.2?1.3) and GFR 13; Hyperkalemia 6.1 -> 5.4 -> 5.1; Hyperphosphatemia 6 -> 7.1 -> 6.1; Bicarb 14.6 - > 16.9 -> 16.2; URIC ACID 15.5 -> 14.0; Lactic acid 2.1 -> 2.1 on pm draw Rx: - Nephrology consulted, started [facility] dialysis - Rasburicase 3mg IV x1 ordered, not available overnight. - Allopurinol 300 mg twice daily for now - Follow q4hr CMP, Mg, Phos, UA and renal function RRx: - Total IVF bolus at the time of admission: 4L - Patient was given 1 amp of bicarb in the ED. Bicarb improved from 14.6 --> 16.9 at midnight - 5.5 L fluid given in total #Chronic Anemia #Chronic Thrombocytopenia #Leukocytosis, improved Chronic anemia and thrombocytopenia likely due to combination of chemo treatment, met cancer, cirrhosis Leukocytosis likely due to septic shock Dx: -hgb no significant changes, plt 50 (72) Rx: -Treat septic shock; will continue to monitor cbc -PRBC if hgb drops below 7 #Coagulopathy Multifactorial, patient has chronic cirrhosis with newly found liver mets, patient presented with azotemia (ARF) in setting of septic shock Dx: -PT 13.5, APTT 39.3, d-dimer >3820 Rx: -Monitor for s/s of bleeding/ bruising -SCDs for DVT prophylaxis RENAL: RAMSES/ARF Anion gap metabolic acidosis, resolved Lactic Acidosis , resolved Hyperphosphatemia, resolved Hyperuricemia, resolved Hyperkalemia, resolved ARF due to septic shock; contributing factor of tumor lysis syndrome i/s/o chemo Metabolic acidosis w/ incomplete respiratory compensation due to shock E-lyte derangements due to tumor lysis syndrome Dx: - Admission labs: RAMSES: BUN 113 ->106, Cr 4.7 (baseline 1.2?1.3) and GFR 13; Hyperkalemia 6.1 -> 5.4 -> 5.1; Hyperphosphatemia 6 -> 7.1 -> 6.1; Bicarb 14.6 - > 16.9 -> 16.2; URIC ACID 15.5 -> 14.0; Lactic acid 2.1 -> 2.1 on pm draw - 02/03: Electrolyte elevations resolved Rx: - [facility] dialysis 02/02-02/03 - Treating septic shock; q4hr renal panel - allopurinol 300 mg twice daily for hyperuricemia RRx: - Patient was given total 5.5 L IV fluids + Albuterol + insulin 7.5 units and dextrose for HyperK - Sevelamer 800mg x1 PO via OGT - Rasburicase 3mg IV x1 ordered, unable to be given overnight. - Nephrology Dr Parker consulted for further recommendations #Hyperchloremic Hypernatremia, resolved Due to large amounts of normal saline infusions for septic shock Dx: - Sodium 149, Chloride 115 - Was given total 5.5 L IV fluids Rx: - Anticipate correction on daily draws - Trending with q4hr renal panel labs ENDO: Hyperglycemia, resolved Dx: - glucose 282 on admission; 02/03: 117 (NPO) Rx: - Blood sugar goal 140-180 mg/dl RRx: - given 1.5 L D5/Half NS ID: Aspiration Pneumonia Dx: -Admission labs of Pro-Anup 165.61 (i/s/o ARF), mild leukocytosis 11.9 -Tmax 102.9 Night of 02/01 for ~1 hour; afebrile since -CXR showed significant bibasilar pneumonia -02/03: ET Tube culture grew GNR; MRSA negative Rx: - Cefepime (02/02- - BCx NG24 hrs RRx: -Vancomycin DC'd (02/02-02/03) -Patient received IV Zosyn 3.375 x 1 in the ED. Disposition: ICU for Septic Shock DVT prophylaxis: SCD's GI prophylaxis: Protonix 40 mg IV BID Diet: NPO Zhao: yes Lines: Peripherals Drips: levo, vaso; fentanyl Vent: AC/VC mode CODE STATUS: DNR Patient plan of care was discussed with the attending physician, Dr. Jack & senior resident Dr. Rachel MACHADO PGY-1
[2025-02-03 11:29] LABS: Albumin, Serum 3.3 gm/dL (3.4-4.8); Anion Gap 11 (7-16); BUN/Creatinine Ratio 14 Ratio (12-20); Blood Urea Nitrogen 11 mg/dL (9-23); Calcium 8.3 mg/dL (8.3-10.6); Calcium (Corrected) 8.9 mg/dL (8.5-10.1); Carbon Dioxide 29.8 mMol/L (20.0-31.0); Chloride 95 mMol/L (98-107); Creatinine (Component) 0.8 mg/dL (0.6-1.3); Estimated Creatinine Clearance 90.3 mL/min (>60); Glucose 119 mg/dL (74-106); Osmolality,Calculated 272 (275-295); Phosphorous 1.9 mg/dL (2.4-5.1); Potassium 3.7 mMol/L (3.4-5.1); Sodium 136 mMol/L (136-145); Uric Acid 1.1 mg/dL (3.7-9.2); eGFR > 60 See Note
--- NOTE | 2025-02-03 12:18 | ESPR_ITS ---
Documentation for date of: 02/03/25 Subjective Subjective Interval history: Reason for consult: RAMSES, hyperkalemia History of present illness: Consult Reason: Acute kidney injury (RAMSES) in the setting of tumor lysis syndrome (TLS), hyperkalemia, hyperphosphatemia, hyperuricemia, and metabolic acidosis. Mr. 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 The patient underwent intubation on 02/01/2025, and is being managed for septic shock, possible tumor lysis syndrome, and acute renal failure. The patient?s condition was discussed with the family, and his code status has been changed to DNR. The family is in agreement with proceeding with hemodialysis. The patient is undergoing continuous renal replacement therapy (CRRT). 02/02/2025: Patient is sedated and intubated, remains in the ICU. Family has been in constant communication and was updated about the patient's prognosis and the need for dialysis. They are in agreement with all measures. Labs: WBC 9.6, Hemoglobin 7.8, Hematocrit 25.3, Platelets 72, Sodium 146 (corrected 150), Potassium 5.1, Chloride 113, Carbon Dioxide 16.7, BUN 94, Creatinine 4.4, GFR 14, Glucose 282, Lactic Acid 2.2, Uric Acid 14 (from 15.5 yesterday), Calcium 9.7, Phosphorus 7.1, Magnesium 2.3, AST 136, ALT 61, Alkaline Phosphatase 536. 02/03/2025: Patient continues to be sedated, though the ICU team has lowered sedation. He remains very jaundiced and continues on CRRT. The family has requested patient to continued to be on CRRT. No significant changes since yesterday. Labs: Hemoglobin 7.6, Hematocrit 23.5, Platelets 50, Sodium 136, Potassium 3.7, Chloride 95, Carbon Dioxide 29.8, Creatinine 0.8, GFR >60, Uric Acid: 1.1 (no rasburicase needed), Calcium 8.9, Phosphorus 1.9, Magnesium 1.7, Albumin 3.3. Exam Vital Signs Temp Pulse Resp BP Pulse Ox O2 Del Method FiO2 97.0 F 89 25 H 113/74 100 Mechanical Ventilation 80 02/03/25 12:00 02/03/25 12:15 02/02/25 13:31 02/03/25 12:15 02/03/25 12:15 02/01/25 23:53 02/03/25 10:34 Narrative Exam General: Sedated, frail. HEENT: Vision grossly intact, scleral icterus Respiratory: Intubated, bilateral breath sounds on auscultation Cardiovascular: S1, S2 normal, RRR, no murmurs, no JVD Abdominal: Distended, BS + Genitourinary: Zhao in place Musculoskeletal: Extremities tone WNL, no LE edema Neurological: Sedated, no gross deficits Skin: Warm, dry, intact, petechiae on bilateral lower extremities, jaundice Objective Labs 02/03/25 04:45 02/03/25 16:59 Labs: Laboratory Results - last 24 hr 02/02/25 02/02/25 02/02/25 05:35 13:46 16:48 WBC RBC Hgb Hct MCV MCH MCHC RDW Std Deviation Plt Count Neut % (Auto) Lymph % (Auto) [place] % (Auto) Eos % (Auto) Baso % (Auto) Neut # (Auto) Lymph # (Auto) [place] # (Auto) Eos # (Auto) Baso # (Auto) Immature Gran # (Auto) Absolute Nucleated RBC Immature Gran % Nucleated RBC % Sodium 141 Potassium 4.4 D Chloride 105 Carbon Dioxide 23.1 Anion Gap 13 BUN 62 H Creatinine 3.0 H D Estim Creat Clear Calc 24.1 L eGFR 22 L BUN/Creatinine Ratio 21 H Glucose 193 H D Calculated Osmolality 303 H Lactic Acid 2.1 H Uric Acid Calcium 8.5 Corrected Calcium 9.1 Phosphorus 3.7 Magnesium Total Bilirubin AST ALT Alkaline Phosphatase Total Protein Albumin 3.2 L Globulin Albumin/Globulin Ratio Random Vancomycin Misc Test Result Platelets confirmed 02/02/25 02/03/25 02/03/25 23:23 04:15 04:45 WBC 9.7 RBC 2.46 L Hgb 7.6 L Hct 23.5 L MCV 96 MCH 30.9 MCHC 32.3 RDW Std Deviation 90.3 H Plt Count 50 L D Neut % (Auto) 88 H Lymph % (Auto) 3 L [place] % (Auto) 6 Eos % (Auto) 0 Baso % (Auto) 0 Neut # (Auto) 8.6 H Lymph # (Auto) 0.3 L [place] # (Auto) 0.6 Eos # (Auto) 0.0 Baso # (Auto) 0.0 Immature Gran # (Auto) 0.24 H Absolute Nucleated RBC 0.08 H Immature Gran % 3 H Nucleated RBC % 1 H Sodium 137 136 Potassium 3.8 D 3.6 Chloride 99 96 L Carbon Dioxide 26.6 28.3 Anion Gap 11 12 BUN 25 H 19 Creatinine 1.5 H D 1.1 Estim Creat Clear Calc 48.1 L 65.6 eGFR 52 L > 60 BUN/Creatinine Ratio 17 17 Glucose 130 H D 117 H Calculated Osmolality 280 275 Lactic Acid Uric Acid Calcium 9.1 8.8 Corrected Calcium 9.2 9.0 Phosphorus 2.4 2.1 L Magnesium 1.7 Total Bilirubin 10.2 H D AST 113 H ALT 57 H Alkaline Phosphatase 460 H D Total Protein 6.5 Albumin 3.9 D 3.7 Globulin 2.8 Albumin/Globulin Ratio 1.3 Random Vancomycin Misc Test Result Platelets confirmed 02/03/25 02/03/25 06:50 10:30 WBC RBC Hgb Hct MCV MCH MCHC RDW Std Deviation Plt Count Neut % (Auto) Lymph % (Auto) [place] % (Auto) Eos % (Auto) Baso % (Auto) Neut # (Auto) Lymph # (Auto) [place] # (Auto) Eos # (Auto) Baso # (Auto) Immature Gran # (Auto) Absolute Nucleated RBC Immature Gran % Nucleated RBC % Sodium 136 Potassium 3.7 Chloride 95 L Carbon Dioxide 29.8 Anion Gap 11 BUN 11 Creatinine 0.8 Estim Creat Clear Calc 90.3 eGFR > 60 BUN/Creatinine Ratio 14 Glucose 119 H Calculated Osmolality 272 L Lactic Acid Uric Acid 1.1 L Calcium 8.3 Corrected Calcium 8.9 Phosphorus 1.9 L Magnesium Total Bilirubin AST ALT Alkaline Phosphatase Total Protein Albumin 3.3 L Globulin Albumin/Globulin Ratio Random Vancomycin 4.4 Misc Test Result ABG Interpretation ABG results: 02/01/25 02/01/25 02/02/25 21:24 23:06 00:13 ABG pH 7.12 L* 7.18 L* ABG pCO2 46 50 H ABG pO2 198 H 120 H D ABG HCO3 15 L 19 L ABG O2 Saturation 100 H 99 H ABG Base Excess -14 L -9 L VBG pH 7.18 L VBG pCO2 46 VBG pO2 108 H VBG Base Excess -10 L 02/02/25 09:59 ABG pH ABG pCO2 ABG pO2 ABG HCO3 ABG O2 Saturation ABG Base Excess VBG pH 7.39 VBG pCO2 31 L D VBG pO2 53 D VBG Base Excess -5 L Quality Measures Quality Measures VTE prophylaxis (SCD's) Assessment & Plan Assessment Current Active Medications: Generic Name Dose Route Start Last Admin Trade Name Freq PRN Reason Stop Dose Admin Allopurinol 300 mg 02/02/25 02:00 02/03/25 09:09 Allopurinol 100 Mg Tablet GT 03/04/25 01:59 300 mg BID ARI Administration Heparin Sodium (Porcine) 3,000 unit 02/02/25 09:42 02/02/25 09:49 Heparin Sod Inj 1000 Unit/Ml Vial 10 Ml INDWELLCAT 02/16/25 09:23 3,000 unit PRN PRN Administration DIALYSIS Hydrocortisone Sodium Succinate 50 mg 02/02/25 18:00 02/03/25 11:14 Hydrocortisone Sod Succ Inj 100 Mg 2 Ml Vial IV 03/04/25 17:59 50 mg Q6HR ARI Administration Norepinephrine/Dextrose 8 mg in 250 mls @ 6.797 mls/hr 02/02/25 04:06 02/02/25 19:23 Levophed In D5w 8mg/250ml IV 03/04/25 04:05 Infused .Q24H PRN Titration PER PROTOCOL Protocol 0.05 MCG/KG/MIN Cefepime HCl 1 gm/ Sodium 50 mls @ 100 mls/hr 02/03/25 09:00 02/03/25 09:05 Chloride IV 02/10/25 08:59 100 mls/hr QDAY ARI Administration Propofol 1,000 mg in 100 mls @ 2.175 mls/hr 02/02/25 11:21 Diprivan Ivpb IV 03/04/25 11:20 .Q24H PRN PER PROTOCOL Protocol 5 MCG/KG/MIN Vasopressin/Sodium Chloride 20 unit in 100 mls @ 9 mls/hr 02/02/25 11:34 02/03/25 06:51 Vasostrict/Ns Ivpb IV 03/04/25 11:33 0.03 unit/min .Q11H7M PRN 9 mls/hr PER PROTOCOL Administration Protocol 0.03 UNIT/MIN Norepinephrine Bitartrate 16 mg in 250 mls @ 3.398 mls/hr 02/02/25 19:05 02/03/25 10:00 Levophed In Ns 16mg/250ml IV 03/04/25 19:04 0.13 mcg/kg/min .Q24H PRN 8.836 mls/hr PER PROTOCOL Titration Protocol 0.05 MCG/KG/MIN Fentanyl Citrate 2,500 mcg in 250 mls @ 2.5 mls/hr 02/03/25 09:54 Sublimaze Inj 2,500 Mcg/250 Ml Bag IV 02/06/25 21:20 .Q24H PRN PER PROTOCOL Protocol 25 MCG/HR Lactulose 20 gm 02/02/25 00:30 02/03/25 11:12 Lactulose Syrup 20 Gm/30 Ml Udc NG 03/04/25 00:29 20 gm QID ARI Administration Protocol Ondansetron HCl 4 mg 02/01/25 21:13 Ondansetron Inj 2 Mg/Ml Inj 2 Ml IVP 03/03/25 21:12 Q6HR PRN NAUSEA OR VOMITING Pantoprazole Sodium 40 mg 02/02/25 07:30 02/03/25 08:49 Pantoprazole Inj 40 Mg Vial IVP 03/04/25 07:29 40 mg QDAY ARI Administration Rasburicase 3 mg 02/03/25 15:00 Rasburicase Inj 1.5 Mg Vial (Non-Formulary) IV 02/03/25 15:01 X1 ONE Protocol Plan 64-year-old male with 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 # Acute kidney injury # Acute renal failure Acute kidney injury in the setting of tumor lysis syndrome, complicated by elevated BUN and creatinine. Plan: * Continue CRRT for fluid management and electrolyte correction. * Monitor renal function and urine output. * Adjust dialysis parameters as needed. # Hyperkalemia Potassium level of 3.7, improved with fluid and insulin therapy. Plan: * Continue monitoring potassium levels closely. * Adjust CRRT parameters for potassium removal as necessary. # Hyperphosphatemia Phosphorus elevated at 1.9, improving with phosphate binders. Plan: * Discontinue sevelamer. * Monitor phosphorus levels and adjust treatment accordingly. # Hyperuricemia Uric acid has decreased to 1.1, no need for rasburicase. Plan: * Continue monitoring uric acid levels. * No further intervention needed as uric acid is now within normal limits. # Non-Anion Gap Metabolic Acidosis: Metabolic acidosis with low bicarbonate levels. Improved with bicarbonate infusion. Plan: * Reassess bicarb and pH. * Monitor for resolution of acidosis. ----- Plan discussed with attending physician Dr. Keith Edwards MD PGY-1 Internal Medicine Attending Provider Attestation/Addendum Patient seen and examined with resident physician Dr. Edwards. Note reviewed, agree with findings and recommendations. Patient currently seen in ICU. Patient with RAMSES, metabolic acidosis, hyperkalemia and minimal urinary output in the setting of tumor lysis syndrome. Decided to proceed with dialysis. Patient currently on 2 pressors-decided to proceed with CRRT. Critical care time spent more than 40 minutes regarding plan of care and disease management. CRRT for 6 hours 3K 3.5 calcium 40 bicarbonate No heparin Citrasate Blood flow 100-150 Dialysate flow 100 Saline flushes 80-100 mL/h No ultrafiltration Renal panel Q Every 6 hours while on CRRT. Orders given to ICU nurse. Critical care time spent more than 45 minutes regarding plan of care and disease management. Overall prognosis remains poor. Noted family earlier this morning made him DNR. Goals of care will be discussed with family again today. Patient MRI showed multiple metastatic disease. Wants to continue over the weekend. Will hold dialysis today uric acid of 1.1. Plan for dialysis tomorrow if no urine output.
--- NOTE | 2025-02-03 13:35 | PC.CC ---
Patient is open with [facility]
[2025-02-03] MEDS: PROPOFOL 1,000 MG IVPB 1,000 MG/100 ML VIAL 2.175 MG IV (14:36)
[2025-02-03] MEDS: fentaNYL 2,500 MCG/250 ML BAG 2,500 MCG/250 ML BAG 27.5 MCG IV (14:39)
[2025-02-03 17:43] LABS: Albumin, Serum 3.0 gm/dL (3.4-4.8); Anion Gap 13 (7-16); BUN/Creatinine Ratio 13 Ratio (12-20); Blood Urea Nitrogen 12 mg/dL (9-23); Calcium 8.2 mg/dL (8.3-10.6); Calcium (Corrected) 9.0 mg/dL (8.5-10.1); Carbon Dioxide 27.2 mMol/L (20.0-31.0); Chloride 96 mMol/L (98-107); Creatinine (Component) 0.9 mg/dL (0.6-1.3); Estimated Creatinine Clearance 80.2 mL/min (>60); Glucose 125 mg/dL (74-106); Osmolality,Calculated 272 (275-295); Phosphorous 2.1 mg/dL (2.4-5.1); Potassium 3.8 mMol/L (3.4-5.1); Sodium 136 mMol/L (136-145); eGFR > 60 See Note
[2025-02-03] MEDS: Norepinephrine/NS 16mg/250ml 16 MG/250 ML BAG 4.758 MG IV (17:45)
[2025-02-03] MEDS: fentaNYL 2,500 MCG/250 ML BAG 2,500 MCG/250 ML BAG 30 MCG IV (23:03)
[2025-02-04] VITALS (106 sets, daily range): BP systolic 75–146; BP diastolic 47–83; PULSE 80–117; RESP 19–26; TEMP 36.1–36.4; O2SAT 97–100; BMI 24.7
[2025-02-04] MEDS: PROPOFOL 1,000 MG IVPB 1,000 MG/100 ML VIAL 8.7 MG IV (01:55)
[2025-02-04] MEDS: VASOPRESSIN IN NS IVPB 20 UNIT/100 ML BAG 9 UNIT IV ×2 (05:16→17:09)
[2025-02-04] MEDS: LACTULOSE SYRUP 20 GM/30 ML UDC NG ×4 (05:16→21:12)
[2025-02-04] MEDS: HYDROCORTISONE SOD SUCC INJ 100 MG 2 ML VIAL 50 MG IV ×4 (06:35→23:49)
[2025-02-04 06:38] LABS: Basophils # (Auto) 0.0 Thou/mm3 (0.0-0.2); Basophils % (Auto) 0 % (0-2.5); Eosinophils # (Auto) 0.0 Thou/mm3 (0.0-0.5); Eosinophils % (Auto) 0 % (0-10); Hematocrit 24.3 % (41.0-53.0); Immature Granulocytes Auto 0.33 Thou/mm3 (0.00-0.00); Lymphocytes # (Auto) 0.6 Thou/mm3 (1.0-4.8); Lymphocytes % (Auto) 4 % (10-50); Mean Corpuscular HGB Conc 32.5 g/dl (31.0-37.0); Mean Corpuscular Hemoglobin 31.7 pg (25.0-35.0); Mean Corpuscular Volume 98 fL (80-100); Monocytes # (Auto) 0.5 Thou/mm3 (0.0-0.8); Monocytes % (Auto) 4 % (0-12); Neutrophils # (Auto) 11.4 Thou/mm3 (1.8-7.7); Neutrophils % (Auto) 89 % (37-80); Nucleated Red Blood Cell # 0.07 Thou/mm3 (0.00-0.00); Nucleated Red Blood Cell % 1 /100 WBC (0); RDW Standard Deviation 91.9 fL (35.1-43.9); Red Blood Count 2.49 Miln/mm3 (4.50-5.90); White Blood Count 12.8 Thou/mm3 (3.8-10.6)
[2025-02-04 06:55] LABS: Alanine Aminotransferase 56 U/L (10-49); Albumin, Serum 3.2 gm/dL (3.4-4.8); Albumin/Globulin Ratio 1.2 (1.2-2.2); Alkaline Phosphatase 517 U/L (46-116); Anion Gap 10 (7-16); Aspartate Amino Transferase 123 U/L (0-34); BUN/Creatinine Ratio 15 Ratio (12-20); Bilirubin,Total 9.0 mg/dL (0.3-1.2); Blood Urea Nitrogen 22 mg/dL (9-23); Calcium 8.4 mg/dL (8.3-10.6); Calcium (Corrected) 9.0 mg/dL (8.5-10.1); Carbon Dioxide 27.0 mMol/L (20.0-31.0); Chloride 98 mMol/L (98-107); Creatinine (Component) 1.5 mg/dL (0.6-1.3); Estimated Creatinine Clearance 48.1 mL/min (>60); Globulin 2.7 gm/dL (2.3-3.5); Glucose 152 mg/dL (74-106); Magnesium 2.3 mg/dL (1.6-2.6); Osmolality,Calculated 276 (275-295); Phosphorous 3.3 mg/dL (2.4-5.1); Potassium 4.0 mMol/L (3.4-5.1); Sodium 135 mMol/L (136-145); Total Protein 5.9 gm/dL (5.7-8.2); eGFR 52 See Note
[2025-02-04 06:57] LABS: Hemoglobin 7.9 g/dL (13.5-16.0); Platelet Count 59 Thou/mm3 (140-440)
[2025-02-04] MEDS: fentaNYL 2,500 MCG/250 ML BAG 2,500 MCG/250 ML BAG 25 MCG IV ×2 (07:37→17:45)
[2025-02-04 08:30] LABS: Slide Review Platelets confirmed
[2025-02-04] MEDS: CEFEPIME INJ 1 GM in SODIUM CHLORIDE 0.9% (Popper) 50 ML IV (08:32)
--- NOTE | 2025-02-04 10:01 | ESPR_ITS ---
Documentation for date of: 02/04/25 Subjective Subjective Interval history: Interval history: Reason for consult: RAMSES, hyperkalemia History of present illness: Consult Reason: Acute kidney injury (RAMSES) in the setting of tumor lysis syndrome (TLS), hyperkalemia, hyperphosphatemia, hyperuricemia, and metabolic acidosis. Mr. 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 The patient underwent intubation on 02/01/2025, and is being managed for septic shock, possible tumor lysis syndrome, and acute renal failure. The patient?s condition was discussed with the family, and his code status has been changed to DNR. The family is in agreement with proceeding with hemodialysis. The patient is undergoing continuous renal replacement therapy (CRRT). 02/02/2025: Patient is sedated and intubated, remains in the ICU. Family has been in constant communication and was updated about the patient's prognosis and the need for dialysis. They are in agreement with all measures. Labs: WBC 9.6, Hemoglobin 7.8, Hematocrit 25.3, Platelets 72, Sodium 146 (corrected 150), Potassium 5.1, Chloride 113, Carbon Dioxide 16.7, BUN 94, Creatinine 4.4, GFR 14, Glucose 282, Lactic Acid 2.2, Uric Acid 14 (from 15.5 yesterday), Calcium 9.7, Phosphorus 7.1, Magnesium 2.3, AST 136, ALT 61, Alkaline Phosphatase 536. 02/03/2025: Patient continues to be sedated, though the ICU team has lowered sedation. He remains very jaundiced and continues on CRRT. The family has requested patient to continued to be on CRRT. No significant changes since yesterday. Labs: Hemoglobin 7.6, Hematocrit 23.5, Platelets 50, Sodium 136, Potassium 3.7, Chloride 95, Carbon Dioxide 29.8, Creatinine 0.8, GFR >60, Uric Acid: 1.1 (no rasburicase needed), Calcium 8.9, Phosphorus 1.9, Magnesium 1.7, Albumin 3.3. 02/04/2025 patient currently seen in ICU. Remains on ventilator. On 2 pressors. Urine output still low. Family requesting all aggressive measures over the weekend. Did receive a CRRT 24 hours yesterday. Will hold today and reevaluate tomorrow. Electrolyte seems to be acceptable. Hope there will be renal recovery. Review of Systems Review of Systems ROS Unobtainable: unobtainable due to medical condition and due to endotracheal tube Exam Vital Signs Temp Pulse Resp BP Pulse Ox O2 Del Method FiO2 36.1 C 83 30 H 92/58 L 99 Mechanical Ventilation 75 02/04/25 07:43 02/04/25 08:15 02/03/25 14:27 02/04/25 08:15 02/04/25 08:15 02/04/25 08:15 02/04/25 08:15 Narrative Exam General: Sedated, frail. HEENT: Vision grossly intact, scleral icterus Respiratory: Intubated, bilateral breath sounds on auscultation Cardiovascular: S1, S2 normal, RRR, no murmurs, no JVD Abdominal: Distended, BS + Genitourinary: Zhao in place Musculoskeletal: Extremities tone WNL, no LE edema Neurological: Sedated, Skin: Warm, dry, intact, petechiae on bilateral lower extremities, jaundice Objective Labs 02/06/25 04:28 02/06/25 04:28 Labs: Laboratory Results - last 24 hr 02/03/25 02/03/25 02/03/25 04:45 10:30 16:59 WBC RBC Hgb Hct MCV MCH MCHC RDW Std Deviation Plt Count Neut % (Auto) Lymph % (Auto) [place] % (Auto) Eos % (Auto) Baso % (Auto) Neut # (Auto) Lymph # (Auto) [place] # (Auto) Eos # (Auto) Baso # (Auto) Immature Gran # (Auto) Absolute Nucleated RBC Immature Gran % Nucleated RBC % Sodium 136 136 Potassium 3.7 3.8 Chloride 95 L 96 L Carbon Dioxide 29.8 27.2 Anion Gap 11 13 BUN 11 12 Creatinine 0.8 0.9 Estim Creat Clear Calc 90.3 80.2 eGFR > 60 > 60 BUN/Creatinine Ratio 14 13 Glucose 119 H 125 H Calculated Osmolality 272 L 272 L Uric Acid 1.1 L Calcium 8.3 8.2 L Corrected Calcium 8.9 9.0 Phosphorus 1.9 L 2.1 L Magnesium Total Bilirubin AST ALT Alkaline Phosphatase Total Protein Albumin 3.3 L 3.0 L Globulin Albumin/Globulin Ratio Misc Test Result Platelets confirmed 02/04/25 04:43 WBC 12.8 H RBC 2.49 L Hgb 7.9 L Hct 24.3 L MCV 98 MCH 31.7 MCHC 32.5 RDW Std Deviation 91.9 H Plt Count 59 L Neut % (Auto) 89 H Lymph % (Auto) 4 L [place] % (Auto) 4 Eos % (Auto) 0 Baso % (Auto) 0 Neut # (Auto) 11.4 H Lymph # (Auto) 0.6 L [place] # (Auto) 0.5 Eos # (Auto) 0.0 Baso # (Auto) 0.0 Immature Gran # (Auto) 0.33 H Absolute Nucleated RBC 0.07 H Immature Gran % 3 H Nucleated RBC % 1 H Sodium 135 L Potassium 4.0 Chloride 98 Carbon Dioxide 27.0 Anion Gap 10 BUN 22 Creatinine 1.5 H D Estim Creat Clear Calc 48.1 L eGFR 52 L BUN/Creatinine Ratio 15 Glucose 152 H Calculated Osmolality 276 Uric Acid Calcium 8.4 Corrected Calcium 9.0 Phosphorus 3.3 Magnesium 2.3 Total Bilirubin 9.0 H D AST 123 H ALT 56 H Alkaline Phosphatase 517 H D Total Protein 5.9 Albumin 3.2 L Globulin 2.7 Albumin/Globulin Ratio 1.2 Misc Test Result Platelets confirmed ABG Interpretation ABG results: 02/01/25 02/01/25 02/02/25 21:24 23:06 00:13 ABG pH 7.12 L* 7.18 L* ABG pCO2 46 50 H ABG pO2 198 H 120 H D ABG HCO3 15 L 19 L ABG O2 Saturation 100 H 99 H ABG Base Excess -14 L -9 L VBG pH 7.18 L VBG pCO2 46 VBG pO2 108 H VBG Base Excess -10 L 02/02/25 09:59 ABG pH ABG pCO2 ABG pO2 ABG HCO3 ABG O2 Saturation ABG Base Excess VBG pH 7.39 VBG pCO2 31 L D VBG pO2 53 D VBG Base Excess -5 L Assessment & Plan Additional Assessment & Plan Additional Plan: 64-year-old male with 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 # Acute kidney injury # Acute renal failure Acute kidney injury in the setting of tumor lysis syndrome with ATN-anuric, complicated by elevated BUN and creatinine. Plan: No need for emergency dialysis . he did receive CRRT yesterday. Will hold today and watch for renal recovery. * Monitor renal function and urine output. # Hyperuricemia Uric acid has decreased to 1.1, no need for rasburicase. Plan: * Continue monitoring uric acid levels. * No further intervention needed as uric acid is now within normal limits. # Non-Anion Gap Metabolic Acidosis: Metabolic acidosis with low bicarbonate levels. Improved with dialysis Plan: * Reassess bicarb and pH. * Monitor for resolution of acidosis. Quality - progress note Quality Measures Quality Measures: VTE prophylaxis Reason for Continued Stay Reason for Continued Stay: further monitoring
--- NOTE | 2025-02-04 10:54 | ESPR_ITS ---
<Statement entered by Evan Jack MD - 02/06/25 18:29> TOTAL CC TIME: MIN TOTAL TIME: 45MINUTES ON DIRECT MEDICAL CARE, MANAGEMENT - COORDINATION AND COUNSELING > 50% OF TOTAL TIME I saw and evaluated the patient. I reviewed the resident?s note and agree with findings and plan as documented in the resident?s note. Upon my evaluation, this patient had a high probability of imminent or life- threatening deterioration due to multifocal pna (gram negative), acute hypoxic resp failure, septic shock ATN which required my direct attention, intervention, and personal management. This time is exclusive of time spent on procedures, which are documented separately if performed. no change in condition remains on pressors - no renal recovery noted cont abx - narrowed and awaiting final clx maintain full support and pain control <Statement entered by David Larson MD - 02/04/25 22:52> Patient was seen and examined at the bedside in the ICU. No acute overnight events reported. Patients' son was updated regarding current updates and was informed that patient's neurological status remains unchanged from yesterday. He was informed that we will hold on performing Tablo as patient's electrolyte has been within normal limits per nephrology recommendations. We will continue with sedation with fentanyl to a level for comfort with RASS goal of 0. Patient continues to receive Levophed and vasopressin with hydrocortisone to maintain MAP below 65. Continue cefepime for pneumonia. Family would like to be updated on daily basis. Continue with current mechanical ventilation settings. All labs and orders were reviewed. I discussed and supervised with the pharmacy graduate intern physician who took care of this patient. I personally saw and examined the patient. I agree with most of the assessment and plan. Disclaimer: Despite multiple revisions, due to the dictation software being used, the document bellow may not be free of grammatical errors including phonetic/typographic errors. However, this does not deter from our commitment to providing health care in the patient's best interest in mind. Plan of care discussed with attending Physician Dr. 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 He follows up with Dr. Lomax and Dr. Ugarte at the cancer center, last chemotherapy with topotecan on 01/16/2025 and repeated on 01/30/2025 as per oncology note. Patient was brought to the ED with severe hypoxia, oxygen saturations in the low 80s with moderate to severe respiratory distress. Per ED, family stated that patient started to experience altered mental status around 4 PM today, followed by acute drop in oxygen saturations to 80% on room air. Given that the patient was unable to maintain adequate oxygenation on room air, ED intubated around 9 PM on 02/01/2025. Per oncology documentation from 2 days ago, patient was seen at the cancer center after being discharged from rehab, and family was advised at that time to take patient to the ER due to low oxygen sats. Family denied, and took the patient home on oxygen post electrolyte transfusion on 01/30/2025. Family denied any recent signs of infection or other systemic symptoms, however did endorse yellowing of his eyes . Patient was last hospitalized in December 2024, and had a prolonged hospital stay, with extensive discussions with family regarding hospice. Family actively declined hospice at that time. ER physician rediscussed hospice with family on this admission, family reconsidering, however currently want full code with all treatment. ED Course: Vitals in the ED showed soft blood pressure 90/60s, tachycardia 147 and tachypnea 24. Initial laboratory workup remarkable for mild leukocytosis WBC 11.9 neutrophil predominant, normocytic anemia Hb 9.5 MCV 90s, thrombocytopenia plt 106, hyperkalemia 6.1, hyperphosphatemia 6, bicarb 14.6, RAMSES: BUN 106, creatinine 4.7 (baseline 1.2?1.3) and GFR 13. ABG pH 7.18, CO2 50, LFT: T. bili 11.9, ALP 696, AST 149, ALT 76 and elevated LDH 526. Patient also had elevated Pro-Anup 165.61. UA remarkable for 1+ protein, 3+ blood, 1+ bilirubin, 133 RBC, otherwise sterile. On imaging, chest x-ray showed bilateral consolidation, with severe left apical pleural disease. In the ED, patient was given 2.5 L IV fluids, albuterol and insulin 7.5 units for potassium, and started on fentanyl postintubation. 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 Interval History in ICU: 02/02/2025: Patient in the morning was assessed and examined in the ICU, found to be sedated initially on versed and fentanyl; was later switched to fentanyl and ordered propofol for sedation if needed with goal rass of -2. Patient is being mechanically ventillated after being found to have respiratory distress/decompensation. Patient was placed on levophed initially and throughout the day ended up needing vasopressin. Neprhology was consulted and recommended patient get TABLO dialysis for elevated uric acid levels, electrolyte derangements along with metabolic acidosis. Patient's family was consented for central line and was placed after that. Patient had CT imaging done of head that found mets and imaging of chest/abdomen/pelvis which was significant for hepatic mets, extensive bilatereal pneumonia, cirrhosis, 20 mm left adrenal mass, moderate asicites, and widespread osteoblastic metastatic disease. Patient's family early this morning had a discussion with ED physicians regarding poor prognosis and patient was switched to DNR. Refer to event note for more details. Patient's family later in the day were informed of the imaging and opted to have dialysis continued for 24 hours with hope for improvement & also said they will reassess after the 24 hours after dialysis started for comfort care. Family showed understanding and all of their questions were answered. 02/03/2025: Patient had no acute overnight events. Patient continues to be sedated on fentanyl. Patient was being weaned down on sedation in order to assess patient's mentation and patient began to show signs of agitation/pain -> increased the sedation back up to keep the patient comfortable. Patient continues to be on mechanical ventilation with no acute changes to them. Patient continues to be on levophed, currently at 0.13 and continues to be on vasopressin, hydrocortisone 50 mg q6hr. Patient's ET sputum cultures came back and cultured GNR, continuing cefepime & DC'd vancomycin, MRSA nares negative as well. Will plan to contact patient's family for updates today. 02/04/2025: Patient had no acute events overnight. Today patient's son was contacted to update regarding what has happened since we last spoke, also answered questions he had. Patient made very minimal amount of urine, does not need dialysis today per nephrology. Patient continues to be sedated to a level for comfort, unable to assess mentation as when weaned down on sedation, patient appears to be in pain, continuing with sedation to level of comfort. Patient continues to receive levophed, vasopressin and hydrocortisone to maintain MAP > 65. Patient continues to be on cefepime for pneumonia. Will plan to continue to follow up with family on a daily basis for updates. Exam Vital Signs Temp Pulse Resp BP Pulse Ox O2 Del Method FiO2 97 F 83 30 H 106/68 99 Mechanical Ventilation 75 02/04/25 07:43 02/04/25 10:35 02/03/25 14:27 02/04/25 10:35 02/04/25 10:35 02/04/25 08:15 02/04/25 10:35 Narrative Exam General: Sedated, Intubated Skin: Warm, dry, intact, no obvious rash. Jaundiced HENT: NCAT, PERRL, Scleral Icterus present. External ears normal. No rhinorrhea. Dry mucous membranes Cardiovascular: Regular rate and rhythm, no murmur, +S1/S2. Respiratory: Lungs CTAB on anterior auscultation GI: Mild distension, bowel sounds present; hepatomegaly : No suprapubic tenderness. No flank tenderness bilaterally. Extremities: no edema, no cyanosis, no clubbing. Extremity pulses present; C lubbing Neuro: RASS -5, not withdrawing to pain; PERRL; babinkski not present; Objective Labs 02/04/25 04:43 02/04/25 04:43 Labs: Laboratory Results - last 24 hr 02/03/25 02/03/25 02/04/25 10:30 16:59 04:43 WBC 12.8 H RBC 2.49 L Hgb 7.9 L Hct 24.3 L MCV 98 MCH 31.7 MCHC 32.5 RDW Std Deviation 91.9 H Plt Count 59 L Neut % (Auto) 89 H Lymph % (Auto) 4 L [place] % (Auto) 4 Eos % (Auto) 0 Baso % (Auto) 0 Neut # (Auto) 11.4 H Lymph # (Auto) 0.6 L [place] # (Auto) 0.5 Eos # (Auto) 0.0 Baso # (Auto) 0.0 Immature Gran # (Auto) 0.33 H Absolute Nucleated RBC 0.07 H Immature Gran % 3 H Nucleated RBC % 1 H Sodium 136 136 135 L Potassium 3.7 3.8 4.0 Chloride 95 L 96 L 98 Carbon Dioxide 29.8 27.2 27.0 Anion Gap 11 13 10 BUN 11 12 22 Creatinine 0.8 0.9 1.5 H D Estim Creat Clear Calc 90.3 80.2 48.1 L eGFR > 60 > 60 52 L BUN/Creatinine Ratio 14 13 15 Glucose 119 H 125 H 152 H Calculated Osmolality 272 L 272 L 276 Uric Acid 1.1 L Calcium 8.3 8.2 L 8.4 Corrected Calcium 8.9 9.0 9.0 Phosphorus 1.9 L 2.1 L 3.3 Magnesium 2.3 Total Bilirubin 9.0 H D AST 123 H ALT 56 H Alkaline Phosphatase 517 H D Total Protein 5.9 Albumin 3.3 L 3.0 L 3.2 L Globulin 2.7 Albumin/Globulin Ratio 1.2 Misc Test Result Platelets confirmed ABG Interpretation ABG results: 02/01/25 02/01/25 02/02/25 21:24 23:06 00:13 ABG pH 7.12 L* 7.18 L* ABG pCO2 46 50 H ABG pO2 198 H 120 H D ABG HCO3 15 L 19 L ABG O2 Saturation 100 H 99 H ABG Base Excess -14 L -9 L VBG pH 7.18 L VBG pCO2 46 VBG pO2 108 H VBG Base Excess -10 L 02/02/25 09:59 ABG pH ABG pCO2 ABG pO2 ABG HCO3 ABG O2 Saturation ABG Base Excess VBG pH 7.39 VBG pCO2 31 L D VBG pO2 53 D VBG Base Excess -5 L Quality Measures Quality Measures VTE prophylaxis (SCD's) Assessment & Plan Assessment Current Active Medications: Generic Name Dose Route Start Last Admin Trade Name Freq PRN Reason Stop Dose Admin Allopurinol 300 mg 02/02/25 02:00 02/04/25 08:32 Allopurinol 100 Mg Tablet GT 03/04/25 01:59 300 mg BID ARI Administration Heparin Sodium (Porcine) 3,000 unit 02/02/25 09:42 02/02/25 09:49 Heparin Sod Inj 1000 Unit/Ml Vial 10 Ml INDWELLCAT 02/16/25 09:23 3,000 unit PRN PRN Administration DIALYSIS Hydrocortisone Sodium Succinate 50 mg 02/02/25 18:00 02/04/25 06:35 Hydrocortisone Sod Succ Inj 100 Mg 2 Ml Vial IV 03/04/25 17:59 50 mg Q6HR ARI Administration Cefepime HCl 1 gm/ Sodium 50 mls @ 100 mls/hr 02/03/25 09:00 02/04/25 08:32 Chloride IV 02/10/25 08:59 100 mls/hr QDAY ARI Administration Propofol 1,000 mg in 100 mls @ 2.175 mls/hr 02/02/25 11:21 02/04/25 08:53 Diprivan Ivpb IV 03/04/25 11:20 10 mcg/kg/min .Q24H PRN 4.35 mls/hr PER PROTOCOL Titration Protocol 5 MCG/KG/MIN Vasopressin/Sodium Chloride 20 unit in 100 mls @ 9 mls/hr 02/02/25 11:34 02/04/25 07:00 Vasostrict/Ns Ivpb IV 03/04/25 11:33 0.03 unit/min .Q11H7M PRN 9 mls/hr PER PROTOCOL Titration Protocol 0.03 UNIT/MIN Norepinephrine Bitartrate 16 mg in 250 mls @ 3.398 mls/hr 02/02/25 19:05 02/04/25 08:52 Levophed In Ns 16mg/250ml IV 03/04/25 19:04 0.07 mcg/kg/min .Q24H PRN 4.758 mls/hr PER PROTOCOL Titration Protocol 0.05 MCG/KG/MIN Fentanyl Citrate 2,500 mcg in 250 mls @ 2.5 mls/hr 02/03/25 09:54 02/04/25 08:00 Sublimaze Inj 2,500 Mcg/250 Ml Bag IV 02/06/25 21:20 250 mcg/hr .Q24H PRN 25 mls/hr PER PROTOCOL Titration Protocol 25 MCG/HR Lactulose 20 gm 02/02/25 00:30 02/04/25 05:16 Lactulose Syrup 20 Gm/30 Ml Udc NG 03/04/25 00:29 20 gm QID ARI Administration Protocol Ondansetron HCl 4 mg 02/01/25 21:13 Ondansetron Inj 2 Mg/Ml Inj 2 Ml IVP 03/03/25 21:12 Q6HR PRN NAUSEA OR VOMITING Pantoprazole Sodium 40 mg 02/02/25 07:30 02/04/25 08:32 Pantoprazole Inj 40 Mg Vial IVP 03/04/25 07:29 40 mg QDAY ARI Administration Plan Mr Garza is a 64-year-old male with a history of 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 Admitted to ICU for management of septic shock. GM VIDEO: Acute encephalopathy Post intubation with sedation DDx: Brain mets in a patient with known small cell lung cancer with only bone mets previously noted. Possible contributing factors of encephalopathy include acute renal failure with severe pre-renal azotemia and metabolic acidosis from shock vs hyperammonemia vs tumor lysis syndrome -> e-lyte derangements. Dx: - Admission labs of Ammonia 92, BUN 106, Cr 4.7, K 6.1, Uric Acid 15.5, Phos 7.1, Bicarb 16.7 - MRI brain in July 2024 confirmed no mets - Head CT 02/02: Multiple cerebral metastases - Family Informed, Will continue to follow up with family for updates daily Rx: - Sedation to fentanyl, propofol; goal RASS of -2 if able to tolerate - Dialysis/Tablo for acute renal failure per nephrology RRx: - Gave 2 amps bicarb - Discontinued Versed for sedation and continue with fentanyl mainly due to mets - use propofol only if needed - Continue stress dose steroids for cerebral metastasis and increased pressor requirement - Family was informed that Prognosis is poor with advance widespread metastasis CVS: Septic Shock DDx: Pneumonia in setting of metastatic small cell lung cancer to brain, liver. Dx: - MAP 50s/60s on presentation - Femoral Central line completed for unequivocal access given earlier RIJ central line attempt - Lactic acid 2.1 -> 1.6 -> 2.1 - Bedside US showed no evidence of RV overload, Low respiratory variation of IVC, Equivocal IVC Rx: -Levophed, Vasopressin for MAP >65 -Started Hydrocortison 100 mg IV x1 & 50 mg IV q6hr -Cefepime (02/02- -Blood cx NG48 hrs; f/u sputum GNR cx speciation RRx: -5.5 L IV fluid given -Vancomycin (02/02-02/03) -Zosyn (02/01) Sinus tachycardia, improved DDx: septic shock Dx: - Initial HR 140-150 bpm on telemetry - On imaging, chest x-ray showed bilateral consolidation, with severe left apical pleural disease. - Total IVF bolus at the time of admission: 4L RX: - Continue to monitor heart rate PULM: Acute Hypoxic respiratory failure Mechanical Ventilation History of stage IV small cell lung cancer (primary) Mechanically ventilated for respiratory failure and inability to protect airway AHRF due to B/L pneumonia consolidations and adv small cell lung cancer (last chemotherapy 01/30) PE less likely after bedside US showed no evidence of RV overload; aspiration pneumonia suspected as patient had altered mental status and imaging showing significant bibasilar pneumonia. -(oncology, Dr. Rutledge and radiation, Dr. Ugarte) Dx: - ABG initially showed metabolic acidosis. Improved 02/02 to ABG 7.39 pH, pco2 31, po2 53 - Regarding Metastatic Lung cancer, Patient's son made the decision earlier in the morning to change Code Status to DNR after extensively being informed of poor prognosis and high probability of rapid decline. Rx: - Continue Intubation on MV: ACVC; will contact family for updates - Extensive pneumonia being treated with antibiotics GI: Liver metastasis due to Small cell lung cancer Hyperammonemia Jaundice 2/2 Hyperbilirubinemia Hepatitis Hypoalbuminemia Distended abdomen DDx: Newly found mets in liver i/s/o chronic cirrhosis Dx: - 02/02: LFT: T. bili 11.9, ALP 696, AST 149, ALT 76; Albumin 3.2, Ammonia 92 - CT AP 02/02 showed Cirrhosis; Numerous hepatic lesions, consider multifocal primary Jewel liver disease, hepatic metastases (hepatic lesions ranging in size from 2 to 20 mm); moderate ascites; hepatic colopathy; -US Abd 02/02: Abnormal thickening gallbladder wall, Moderate hepatomegaly, cirrhosis, mild ascites; Normal hepatopetal portal venous flow; CBD 0.4 cm Rx: - Trend LFTs with daily labs and continue tablo -Obstruction in biliary tract can not be relieved due to metastatic liver disease HEME/ONC: Tumor lysis syndrome, resolved Stage IV metastatic small cell lung cancer Dx: - Follows Dr. Rutledge, Dr. Ugarte at the cancer center - Started on chemotherapy with Topotecan on 01/16/2025 and repeated on 01/30/2025 as per oncology note. - Admission labs: RAMSES: BUN 113 ->106, Cr 4.7 (baseline 1.2?1.3) and GFR 13; Hyperkalemia 6.1 -> 5.4 -> 5.1; Hyperphosphatemia 6 -> 7.1 -> 6.1; Bicarb 14.6 - > 16.9 -> 16.2; URIC ACID 15.5 -> 14.0; Lactic acid 2.1 -> 2.1 on pm draw Rx: - Nephrology consulted, started Tablo dialysis - Allopurinol 300 mg twice daily for now RRx: - Total IVF bolus at the time of admission: 4L - Rasburicase 3mg IV x1 - Patient was given 1 amp of bicarb in the ED. Bicarb improved from 14.6 --> 16.9 at midnight - 5.5 L fluid given in total #Chronic Anemia #Chronic Thrombocytopenia #Leukocytosis, improved Chronic anemia and thrombocytopenia likely due to combination of chemo treatment, met cancer, cirrhosis Leukocytosis likely due to septic shock Dx: -hgb no significant changes in 7's, plt continues to be between 50-100 Rx: -Treat septic shock; will continue to monitor cbc -PRBC if hgb drops below 7 #Coagulopathy Multifactorial, patient has chronic cirrhosis with newly found liver mets, patient presented with azotemia (ARF) in setting of septic shock Dx: -02/01: PT 13.5, APTT 39.3, d-dimer >3820 Rx: -Monitor for s/s of bleeding/ bruising -SCDs for DVT prophylaxis RENAL: RAMSES/ARF, needing dialysis Anion gap metabolic acidosis, resolved Lactic Acidosis , resolved Hyperphosphatemia, resolved Hyperuricemia, resolved Hyperkalemia, resolved ARF due to septic shock; contributing factor of tumor lysis syndrome i/s/o chemo Metabolic acidosis w/ incomplete respiratory compensation due to shock E-lyte derangements due to tumor lysis syndrome Dx: - Admission labs: RAMSES: BUN 113 ->106, Cr 4.7 (baseline 1.2?1.3) and GFR 13; Hyperkalemia 6.1 -> 5.4 -> 5.1; Hyperphosphatemia 6 -> 7.1 -> 6.1; Bicarb 14.6 - > 16.9 -> 16.2; URIC ACID 15.5 -> 14.0; Lactic acid 2.1 -> 2.1 on pm draw - 02/03: Electrolyte elevations resolved Rx: - Tablo dialysis 02/02-02/03; no dialysis 02/04 per nephrology (KFT and e-lytes acceptable) - Treating septic shock - allopurinol 300 mg twice daily for hyperuricemia RRx: - Patient was given total 5.5 L IV fluids + Albuterol + insulin 7.5 units and dextrose for HyperK - Sevelamer 800mg x1 PO via OGT - Rasburicase 3mg IV x1 ordered, unable to be given overnight. - Nephrology Dr Parker consulted for further recommendations #Hyperchloremic Hypernatremia, resolved Due to large amounts of normal saline infusions for septic shock Dx: - Sodium 149, Chloride 115 - Was given total 5.5 L IV fluids Rx: - Anticipate correction on daily draws - Trending with q4hr renal panel labs ENDO: Hyperglycemia, resolved Dx: - glucose 282 on admission; 165 bedside glucose 02/04 (NPO) Rx: - Blood sugar goal 140-180 mg/dl RRx: - given 1.5 L D5/Half NS ID: Aspiration Pneumonia Dx: -Admission labs of Pro-Anup 165.61 (i/s/o ARF), mild leukocytosis 11.9 -Tmax 102.9 Night of 02/01 for ~1 hour; afebrile since -CXR showed significant bibasilar pneumonia -02/03: ET Tube culture grew GNR -> f/u sputum GNR cx speciation -MRSA negative Rx: - Cefepime (02/02- - BCx NG48 hrs RRx: -Vancomycin DC'd (02/02-02/03) -Patient received IV Zosyn 3.375 x 1 in the ED. Disposition: ICU for Septic Shock DVT prophylaxis: SCD's GI prophylaxis: Protonix 40 mg IV BID Diet: NPO Zhao: yes Lines: Peripherals Drips: levo, vaso; fentanyl, prop Vent: AC/VC mode CODE STATUS: DNR Patient plan of care was discussed with the attending physician, Dr. Jack & senior resident Dr. Neo Lowery MD PGY-1
--- NOTE | 2025-02-04 15:16 | PC.SS ---
Update: Patient remains intubated/sedated. Receiving pressor support. NPO. Afebrile. Temp cath placed. No dialysis conducted today. Dr. Parker consulting.
[2025-02-04] MEDS: PROPOFOL 1,000 MG IVPB 1,000 MG/100 ML VIAL 6.525 MG IV (15:46)
[2025-02-05] VITALS (152 sets, daily range): BP systolic 73–158; BP diastolic 48–103; PULSE 78–136; RESP 17–32; TEMP 36–36.4; O2SAT 89–100
[2025-02-05] MEDS: fentaNYL 2,500 MCG/250 ML BAG 2,500 MCG/250 ML BAG 25 MCG IV ×2 (02:54→12:31)
[2025-02-05] MEDS: VASOPRESSIN IN NS IVPB 20 UNIT/100 ML BAG 9 UNIT IV ×2 (04:22→15:35)
--- NOTE | 2025-02-05 05:22 | PC.RT ---
FIO2 TITRATED TO 55% AT 05:08 PER TITRATE ORDER, SATS 99%
[2025-02-05] MEDS: HYDROCORTISONE SOD SUCC INJ 100 MG 2 ML VIAL 50 MG IV ×4 (05:30→23:18)
[2025-02-05 05:31] LABS: Basophils # (Auto) 0.1 Thou/mm3 (0.0-0.2); Basophils % (Auto) 0 % (0-2.5); Eosinophils # (Auto) 0.1 Thou/mm3 (0.0-0.5); Eosinophils % (Auto) 0 % (0-10); Hematocrit 27.5 % (41.0-53.0); Hemoglobin 8.9 g/dL (13.5-16.0); Immature Granulocytes Auto 0.51 Thou/mm3 (0.00-0.00); Lymphocytes # (Auto) 0.6 Thou/mm3 (1.0-4.8); Lymphocytes % (Auto) 3 % (10-50); Mean Corpuscular HGB Conc 32.4 g/dl (31.0-37.0); Mean Corpuscular Hemoglobin 30.7 pg (25.0-35.0); Mean Corpuscular Volume 95 fL (80-100); Monocytes # (Auto) 0.7 Thou/mm3 (0.0-0.8); Monocytes % (Auto) 3 % (0-12); Neutrophils # (Auto) 17.9 Thou/mm3 (1.8-7.7); Neutrophils % (Auto) 91 % (37-80); Nucleated Red Blood Cell # 0.12 Thou/mm3 (0.00-0.00); Nucleated Red Blood Cell % 1 /100 WBC (0); Platelet Count 81 Thou/mm3 (140-440); RDW Standard Deviation 91.4 fL (35.1-43.9); Red Blood Count 2.90 Miln/mm3 (4.50-5.90); White Blood Count 19.7 Thou/mm3 (3.8-10.6)
[2025-02-05] MEDS: LACTULOSE SYRUP 20 GM/30 ML UDC NG ×4 (05:31→20:09)
[2025-02-05 05:56] LABS: Alanine Aminotransferase 67 U/L (10-49); Albumin, Serum 3.3 gm/dL (3.4-4.8); Albumin/Globulin Ratio 1.3 (1.2-2.2); Alkaline Phosphatase 648 U/L (46-116); Anion Gap 15 (7-16); Aspartate Amino Transferase 134 U/L (0-34); BUN/Creatinine Ratio 13 Ratio (12-20); Bilirubin,Total 9.7 mg/dL (0.3-1.2); Blood Urea Nitrogen 39 mg/dL (9-23); Calcium 8.8 mg/dL (8.3-10.6); Calcium (Corrected) 9.4 mg/dL (8.5-10.1); Carbon Dioxide 23.1 mMol/L (20.0-31.0); Chloride 99 mMol/L (98-107); Creatinine (Component) 2.9 mg/dL (0.6-1.3); Estimated Creatinine Clearance 24.9 mL/min (>60); Globulin 2.6 gm/dL (2.3-3.5); Glucose 171 mg/dL (74-106); Magnesium 2.5 mg/dL (1.6-2.6); Osmolality,Calculated 287 (275-295); Phosphorous 4.3 mg/dL (2.4-5.1); Potassium 4.4 mMol/L (3.4-5.1); Sodium 137 mMol/L (136-145); Total Protein 5.9 gm/dL (5.7-8.2); eGFR 23 See Note
[2025-02-05] MEDS: CEFEPIME INJ 1 GM in SODIUM CHLORIDE 0.9% (Popper) 50 ML IV (08:05)
--- NOTE | 2025-02-05 08:21 | PD.INTPROC ---
PROCEDURES: Procedure Date / Time 02/05/25 0821
--- NOTE | 2025-02-05 08:22 | PD.INTPROG ---
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 02/05/25 04:02 02/05/25 04:02 Labs: Laboratory Results - last 24 hr 02/04/25 02/05/25 04:43 04:02 WBC 19.7 H D RBC 2.90 L Hgb 8.9 L Hct 27.5 L MCV 95 MCH 30.7 MCHC 32.4 RDW Std Deviation 91.4 H Plt Count 81 L D Neut % (Auto) 91 H Lymph % (Auto) 3 L [place] % (Auto) 3 Eos % (Auto) 0 Baso % (Auto) 0 Neut # (Auto) 17.9 H Lymph # (Auto) 0.6 L [place] # (Auto) 0.7 Eos # (Auto) 0.1 Baso # (Auto) 0.1 Immature Gran # (Auto) 0.51 H Absolute Nucleated RBC 0.12 H Immature Gran % 3 H Nucleated RBC % 1 H Sodium 137 Potassium 4.4 Chloride 99 Carbon Dioxide 23.1 Anion Gap 15 BUN 39 H Creatinine 2.9 H D Estim Creat Clear Calc 24.9 L eGFR 23 L BUN/Creatinine Ratio 13 Glucose 171 H Calculated Osmolality 287 Calcium 8.8 Corrected Calcium 9.4 Phosphorus 4.3 Magnesium 2.5 Total Bilirubin 9.7 H D AST 134 H ALT 67 H Alkaline Phosphatase 648 H D Total Protein 5.9 Albumin 3.3 L Globulin 2.6 Albumin/Globulin Ratio 1.3 Misc Test Result Platelets confirmed Assessment & Plan Provider Notation Provider Notation: Although this document has been carefully reviewed, there may still be some phonetic and other typographical errors. These errors are purely grammatical due to imperfections in the software program and should not be construed in any way to compromise the substance of the patient's medical care during this visit. Thank you for the opportunity and privilege in assisting you with this patient's care and management.
--- NOTE | 2025-02-05 08:28 | ESPR_ITS ---
<Statement entered by Lukas Burton MD - 02/05/25 18:57> I have reviewed the note and agree with the resident's assessment & plan with exceptions as below. I have personally reviewed labs, imaging, home meds/prior records, examined the patient, formulated and discussed management plan with my attending. Patient was seen and examined at bedside this morning. No acute overnight events. Patient did not produce any urine overnight and today. Patient was weaned down sedation and was totally off the Precedex and propofol and only on fentanyl low-dose and at this time patient was having spontaneous movements with some eye tracking, but no purposeful movements at all. Patient was also withdrawing to sternal rub, but was becoming more agitated and seemed in discomfort therefore started back on Precedex drip went up on the fentanyl. Patient continued to be uncomfortable with increased respiratory rate along with tachycardia therefore propofol was started as well. Patient was placed on Tablo and his basal pressor requirements increased. Spoke with nephrology as patient's vasopressors continue to increase will likely discontinue tablet at this time. Reached out to patient's brother to provide an update and current clinical status of the patient. The brother was understanding and talk to the son with the patient and they both agreed that they would like to continue medical management at this time until Friday and if no improvement they will likely consider possible comfort care at this time. Patient is currently DNR. Lukas Burton PGY2 Disclaimer: Even though this this note was dictated by speech recognition and even though it was carefully revised there may still be minor errors in food chemist due to voice recognition software. 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 He follows up with Dr. Lomax and Dr. Ugarte at the cancer center, last chemotherapy with topotecan on 01/16/2025 and repeated on 01/30/2025 as per oncology note. Patient was brought to the ED with severe hypoxia, oxygen saturations in the low 80s with moderate to severe respiratory distress. Per ED, family stated that patient started to experience altered mental status around 4 PM today, followed by acute drop in oxygen saturations to 80% on room air. Given that the patient was unable to maintain adequate oxygenation on room air, ED intubated around 9 PM on 02/01/2025. Per oncology documentation from 2 days ago, patient was seen at the cancer center after being discharged from rehab, and family was advised at that time to take patient to the ER due to low oxygen sats. Family denied, and took the patient home on oxygen post electrolyte transfusion on 01/30/2025. Family denied any recent signs of infection or other systemic symptoms, however did endorse yellowing of his eyes . Patient was last hospitalized in December 2024, and had a prolonged hospital stay, with extensive discussions with family regarding hospice. Family actively declined hospice at that time. ER physician rediscussed hospice with family on this admission, family reconsidering, however currently want full code with all treatment. ED Course: Vitals in the ED showed soft blood pressure 90/60s, tachycardia 147 and tachypnea 24. Initial laboratory workup remarkable for mild leukocytosis WBC 11.9 neutrophil predominant, normocytic anemia Hb 9.5 MCV 90s, thrombocytopenia plt 106, hyperkalemia 6.1, hyperphosphatemia 6, bicarb 14.6, RAMSES: BUN 106, creatinine 4.7 (baseline 1.2?1.3) and GFR 13. ABG pH 7.18, CO2 50, LFT: T. bili 11.9, ALP 696, AST 149, ALT 76 and elevated LDH 526. Patient also had elevated Pro-Anup 165.61. UA remarkable for 1+ protein, 3+ blood, 1+ bilirubin, 133 RBC, otherwise sterile. On imaging, chest x-ray showed bilateral consolidation, with severe left apical pleural disease. In the ED, patient was given 2.5 L IV fluids, albuterol and insulin 7.5 units for potassium, and started on fentanyl postintubation. 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 Interval History in ICU: 02/02/2025: Patient in the morning was assessed and examined in the ICU, found to be sedated initially on versed and fentanyl; was later switched to fentanyl and ordered propofol for sedation if needed with goal rass of -2. Patient is being mechanically ventillated after being found to have respiratory distress/decompensation. Patient was placed on levophed initially and throughout the day ended up needing vasopressin. Neprhology was consulted and recommended patient get TABLO dialysis for elevated uric acid levels, electrolyte derangements along with metabolic acidosis. Patient's family was consented for central line and was placed after that. Patient had CT imaging done of head that found mets and imaging of chest/abdomen/pelvis which was significant for hepatic mets, extensive bilatereal pneumonia, cirrhosis, 20 mm left adrenal mass, moderate asicites, and widespread osteoblastic metastatic disease. Patient's family early this morning had a discussion with ED physicians regarding poor prognosis and patient was switched to DNR. Refer to event note for more details. Patient's family later in the day were informed of the imaging and opted to have dialysis continued for 24 hours with hope for improvement & also said they will reassess after the 24 hours after dialysis started for comfort care. Family showed understanding and all of their questions were answered. 02/03/2025: Patient had no acute overnight events. Patient continues to be sedated on fentanyl. Patient was being weaned down on sedation in order to assess patient's mentation and patient began to show signs of agitation/pain -> increased the sedation back up to keep the patient comfortable. Patient continues to be on mechanical ventilation with no acute changes to them. Patient continues to be on levophed, currently at 0.13 and continues to be on vasopressin, hydrocortisone 50 mg q6hr. Patient's ET sputum cultures came back and cultured GNR, continuing cefepime & DC'd vancomycin, MRSA nares negative as well. Will plan to contact patient's family for updates today. 02/04/2025: Patient had no acute events overnight. Today patient's son was contacted to update regarding what has happened since we last spoke, also answered questions he had. Patient made very minimal amount of urine, does not need dialysis today per nephrology. Patient continues to be sedated to a level for comfort, unable to assess mentation as when weaned down on sedation, patient appears to be in pain, continuing with sedation to level of comfort. Patient continues to receive levophed, vasopressin and hydrocortisone to maintain MAP > 65. Patient continues to be on cefepime for pneumonia. Will plan to continue to follow up with family on a daily basis for updates. 02/05/2025: Patient had no acute events overnight. Patient continues to be sedated and intubated. White count uptrending to 19.7, hemoglobin uptrending to 8.9, elevated at 2.9. Liver enzymes continue to be elevated as well. Blood cultures collected 02/01 negative for growth after 48 hours and sputum culture positive for Klebsiella pneumoniae resistant only to ampicillin. CXR this morning noted to show continued extensive bilateral pneumonia. Patient had no urine output over last 24 hours, and given climbing electrolyte panel, nephrology pursued additional day of Tablo dialysis. Prior to Tablo, Levophed was noted to be 0.11 mcg/kg/min, which has been increased to 0.29 mcg/kg/min to maintain MAP above 65 on Tablo in addition to continuing vasopressin and hydrocortisone. Given difficulty with assessing mental status with the patient's sedation, propofol will was switched to Precedex. Fentanyl was decreased to 200 mcg/hr and Precedex was ultimately decreased to 0 mcg/kg/h to elicit slight withdrawal to pain by patient. Patient appeared agitated with increased HR and RR when fentanyl was decreased to 150 mcg/hr. Will update patient's family and discuss feasibility of Tablo dialysis with nephrology given these findings. Will continue cefepime for treatment of pneumonia. Exam Vital Signs Temp Pulse Resp BP Pulse Ox O2 Del Method FiO2 96.8 F 88 30 H 85/59 L 93 L Mechanical Ventilation 55 02/05/25 07:45 02/05/25 07:45 02/03/25 14:27 02/05/25 07:45 02/05/25 07:45 02/05/25 07:45 02/05/25 07:45 Narrative Exam Physical Exam: General: Sedated, intubated, no acute distress. TABLO dialysis machine active. Skin: Cool, dry, intact. Jaundiced. Head: Normocephalic, atraumatic. Eye: Icteric conjunctiva, PERRL. Cardiovascular: Regular rate and rhythm, no murmur, +S1/S2. Respiratory: Lungs are clear to auscultation, respirations unlabored, no crackles, no wheezing. Gastrointestinal: Soft, nontender, mildly distended. No guarding or rebound tenderness. Extremities: No edema, no cyanosis. Clubbing present bilaterally. Neuro: RASS -5, not withdrawing to pain. Babinski absent. Corneal reflex sluggish. Objective Labs 02/07/25 04:17 02/07/25 04:17 Labs: Laboratory Results - last 24 hr 02/04/25 02/05/25 04:43 04:02 WBC 19.7 H D RBC 2.90 L Hgb 8.9 L Hct 27.5 L MCV 95 MCH 30.7 MCHC 32.4 RDW Std Deviation 91.4 H Plt Count 81 L D Neut % (Auto) 91 H Lymph % (Auto) 3 L Kent % (Auto) 3 Eos % (Auto) 0 Baso % (Auto) 0 Neut # (Auto) 17.9 H Lymph # (Auto) 0.6 L Kent # (Auto) 0.7 Eos # (Auto) 0.1 Baso # (Auto) 0.1 Immature Gran # (Auto) 0.51 H Absolute Nucleated RBC 0.12 H Immature Gran % 3 H Nucleated RBC % 1 H Sodium 137 Potassium 4.4 Chloride 99 Carbon Dioxide 23.1 Anion Gap 15 BUN 39 H Creatinine 2.9 H D Estim Creat Clear Calc 24.9 L eGFR 23 L BUN/Creatinine Ratio 13 Glucose 171 H Calculated Osmolality 287 Calcium 8.8 Corrected Calcium 9.4 Phosphorus 4.3 Magnesium 2.5 Total Bilirubin 9.7 H D AST 134 H ALT 67 H Alkaline Phosphatase 648 H D Total Protein 5.9 Albumin 3.3 L Globulin 2.6 Albumin/Globulin Ratio 1.3 Misc Test Result Platelets confirmed ABG Interpretation ABG results: 02/01/25 02/01/25 02/02/25 21:24 23:06 00:13 ABG pH 7.12 L* 7.18 L* ABG pCO2 46 50 H ABG pO2 198 H 120 H D ABG HCO3 15 L 19 L ABG O2 Saturation 100 H 99 H ABG Base Excess -14 L -9 L VBG pH 7.18 L VBG pCO2 46 VBG pO2 108 H VBG Base Excess -10 L 02/02/25 09:59 ABG pH ABG pCO2 ABG pO2 ABG HCO3 ABG O2 Saturation ABG Base Excess VBG pH 7.39 VBG pCO2 31 L D VBG pO2 53 D VBG Base Excess -5 L Quality Measures Quality Measures VTE prophylaxis (SCD's) Assessment & Plan Assessment Current Active Medications: Generic Name Dose Route Start Last Admin Trade Name Freq PRN Reason Stop Dose Admin Allopurinol 300 mg 02/02/25 02:00 02/05/25 08:04 Allopurinol 100 Mg Tablet GT 03/04/25 01:59 300 mg BID ARI Administration Heparin Sodium (Porcine) 3,000 unit 02/02/25 09:42 02/02/25 09:49 Heparin Sod Inj 1000 Unit/Ml Vial 10 Ml INDWELLCAT 02/16/25 09:23 3,000 unit PRN PRN Administration DIALYSIS Hydrocortisone Sodium Succinate 50 mg 02/02/25 18:00 02/05/25 05:30 Hydrocortisone Sod Succ Inj 100 Mg 2 Ml Vial IV 03/04/25 17:59 50 mg Q6HR ARI Administration Cefepime HCl 1 gm/ Sodium 50 mls @ 100 mls/hr 02/03/25 09:00 02/05/25 08:05 Chloride IV 02/10/25 08:59 100 mls/hr QDAY ARI Administration Propofol 1,000 mg in 100 mls @ 2.175 mls/hr 02/02/25 11:21 02/05/25 08:00 Diprivan Ivpb IV 03/04/25 11:20 Infused .Q24H PRN Titration PER PROTOCOL Protocol 5 MCG/KG/MIN Vasopressin/Sodium Chloride 20 unit in 100 mls @ 9 mls/hr 02/02/25 11:34 02/05/25 04:22 Vasostrict/Ns Ivpb IV 03/04/25 11:33 0.03 unit/min .Q11H7M PRN 9 mls/hr PER PROTOCOL Administration Protocol 0.03 UNIT/MIN Norepinephrine Bitartrate 16 mg in 250 mls @ 3.398 mls/hr 02/02/25 19:05 02/05/25 08:00 Levophed In Ns 16mg/250ml IV 03/04/25 19:04 0.09 mcg/kg/min .Q24H PRN 6.117 mls/hr PER PROTOCOL Titration Protocol 0.05 MCG/KG/MIN Fentanyl Citrate 2,500 mcg in 250 mls @ 2.5 mls/hr 02/03/25 09:54 02/05/25 08:00 Sublimaze Inj 2,500 Mcg/250 Ml Bag IV 02/06/25 21:20 150 mcg/hr .Q24H PRN 15 mls/hr PER PROTOCOL Titration Protocol 25 MCG/HR Lactulose 20 gm 02/02/25 00:30 02/05/25 05:31 Lactulose Syrup 20 Gm/30 Ml Udc NG 03/04/25 00:29 20 gm QID ARI Administration Protocol Ondansetron HCl 4 mg 02/01/25 21:13 Ondansetron Inj 2 Mg/Ml Inj 2 Ml IVP 03/03/25 21:12 Q6HR PRN NAUSEA OR VOMITING Pantoprazole Sodium 40 mg 02/02/25 07:30 02/05/25 08:05 Pantoprazole Inj 40 Mg Vial IVP 03/04/25 07:29 40 mg QDAY ARI Administration Plan This patient is a 64-year-old male with past medical history of stage IV metastatic small cell lung cancer diagnosed s/p radiation and multiple cycles of chemotherapy with recurrent hospitalizations. Patient presented to [facility] ED on 02/01 for worsening fatigue and heaviness in his chest and was admitted to ICU for management of septic shock requiring vasopressors. 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 Possible contributing factors of encephalopathy include acute renal failure with severe pre-renal azotemia and metabolic acidosis from shock vs hyperammonemia vs tumor lysis syndrome -> e-lyte derangements. Dx: - Admission labs of Ammonia 92, BUN 106, Cr 4.7, K 6.1, Uric Acid 15.5, Phos 7.1, Bicarb 16.7 - MRI brain in July 2024 confirmed no mets - Head CT 02/02: Multiple cerebral metastases - Family Informed, Will continue to follow up with family for updates daily Rx: - Sedation to fentanyl, Precedex; goal RASS of 0 if able to tolerate - Dialysis/Tablo for acute renal failure per nephrology RRx: - Gave 2 amps bicarb - Discontinued Versed for sedation and continue with fentanyl mainly due to mets - use propofol only if needed - Continue stress dose steroids for cerebral metastasis and increased pressor requirement - Family was informed that Prognosis is poor with advance widespread metastasis CVS: Septic Shock DDx: Pneumonia in setting of metastatic small cell lung cancer to brain, liver. Dx: - MAP 50s/60s on presentation - Femoral Central line completed for unequivocal access given earlier RIJ central line attempt - Lactic acid 2.1 -> 1.6 -> 2.1 - Bedside US showed no evidence of RV overload, Low respiratory variation of IVC, Equivocal IVC Rx: -Levophed, Vasopressin for MAP >65 -Hydrocortisone 100 mg IV x1 & 50 mg IV q6hr -Cefepime (02/02- -Blood cx NG48 hrs; f/u sputum GNR cx speciation RRx: -5.5 L IV fluid given -Vancomycin (02/02-02/03) -Zosyn (02/01) Sinus tachycardia, improved DDx: septic shock Dx: - Initial HR 140-150 bpm on telemetry - On imaging, chest x-ray showed bilateral consolidation, with severe left apical pleural disease. - Total IVF bolus at the time of admission: 4L RX: - Continue to monitor heart rate PULM: Acute Hypoxic respiratory failure Mechanical Ventilation History of stage IV small cell lung cancer (primary) Mechanically ventilated for respiratory failure and inability to protect airway AHRF due to B/L pneumonia consolidations and adv small cell lung cancer (last chemotherapy 01/30) PE less likely after bedside US showed no evidence of RV overload; aspiration pneumonia suspected as patient had altered mental status and imaging showing significant bibasilar pneumonia. -(oncology, Dr. Rutledge and radiation, Dr. Ugarte) Dx: - ABG initially showed metabolic acidosis. Improved 02/02 to ABG 7.39 pH, pco2 31, po2 53 - Regarding Metastatic Lung cancer, Patient's son made the decision earlier in the morning to change Code Status to DNR after extensively being informed of poor prognosis and high probability of rapid decline. Rx: - Continue Intubation on MV: ACVC; will contact family for updates - Extensive pneumonia being treated with antibiotics GI: Liver metastasis due to Small cell lung cancer Hyperammonemia Jaundice 2/2 Hyperbilirubinemia Hepatitis Hypoalbuminemia Distended abdomen DDx: Newly found mets in liver i/s/o chronic cirrhosis Dx: - 02/02: LFT: T. bili 11.9, ALP 696, AST 149, ALT 76; Albumin 3.2, Ammonia 92 - CT AP 02/02 showed Cirrhosis; Numerous hepatic lesions, consider multifocal primary Jewel liver disease, hepatic metastases (hepatic lesions ranging in size from 2 to 20 mm); moderate ascites; hepatic colopathy; -US Abd 02/02: Abnormal thickening gallbladder wall, Moderate hepatomegaly, cirrhosis, mild ascites; Normal hepatopetal portal venous flow; CBD 0.4 cm Rx: - Trend LFTs with daily labs and continue tablo -Obstruction in biliary tract can not be relieved due to metastatic liver disease HEME/ONC: Tumor lysis syndrome, resolved Stage IV metastatic small cell lung cancer Dx: - Follows Dr. Rutledge, Dr. Ugarte at the [facility] center - Started on chemotherapy with Topotecan on 01/16/2025 and repeated on 01/30/2025 as per oncology note. - Admission labs: RAMSES: BUN 113 ->106, Cr 4.7 (baseline 1.2?1.3) and GFR 13; Hyperkalemia 6.1 -> 5.4 -> 5.1; Hyperphosphatemia 6 -> 7.1 -> 6.1; Bicarb 14.6 - > 16.9 -> 16.2; URIC ACID 15.5 -> 14.0; Lactic acid 2.1 -> 2.1 on pm draw Rx: - Nephrology consulted, started Tablo dialysis - Allopurinol 300 mg twice daily for now RRx: - Total IVF bolus at the time of admission: 4L - Rasburicase 3mg IV x1 - Patient was given 1 amp of bicarb in the ED. Bicarb improved from 14.6 --> 16.9 at midnight - 5.5 L fluid given in total #Chronic Anemia #Chronic Thrombocytopenia #Leukocytosis, improved Chronic anemia and thrombocytopenia likely due to combination of chemo treatment, met cancer, cirrhosis Leukocytosis likely due to septic shock Dx: -hgb no significant changes in 7's, plt continues to be between 50-100 Rx: -Treat septic shock; will continue to monitor cbc -PRBC if hgb drops below 7 #Coagulopathy Multifactorial, patient has chronic cirrhosis with newly found liver mets, patient presented with azotemia (ARF) in setting of septic shock Dx: -02/01: PT 13.5, APTT 39.3, d-dimer >3820 Rx: -Monitor for s/s of bleeding/ bruising -SCDs for DVT prophylaxis RENAL: RAMSES/ARF, needing dialysis Anion gap metabolic acidosis, resolved Lactic Acidosis , resolved Hyperphosphatemia, resolved Hyperuricemia, resolved Hyperkalemia, resolved ARF due to septic shock; contributing factor of tumor lysis syndrome i/s/o chemo Metabolic acidosis w/ incomplete respiratory compensation due to shock E-lyte derangements due to tumor lysis syndrome Dx: - Admission labs: RAMSES: BUN 113 ->106, Cr 4.7 (baseline 1.2?1.3) and GFR 13; Hyperkalemia 6.1 -> 5.4 -> 5.1; Hyperphosphatemia 6 -> 7.1 -> 6.1; Bicarb 14.6 - > 16.9 -> 16.2; URIC ACID 15.5 -> 14.0; Lactic acid 2.1 -> 2.1 on pm draw - 02/03: Electrolyte elevations resolved Rx: - Tablo dialysis 02/02-02/03; no dialysis 02/04 per nephrology (KFT and e-lytes acceptable); dialysis 02/05 - Treating septic shock - allopurinol 300 mg twice daily for hyperuricemia RRx: - Patient was given total 5.5 L IV fluids + Albuterol + insulin 7.5 units and dextrose for HyperK - Sevelamer 800mg x1 PO via OGT - Rasburicase 3mg IV x1 ordered, unable to be given due to lack of supply in house, pending - Nephrology Dr Parker consulted for further recommendations #Hyperchloremic Hypernatremia, resolved Due to large amounts of normal saline infusions for septic shock Dx: - Sodium 149, Chloride 115 - Was given total 5.5 L IV fluids Rx: - Anticipate correction on daily draws - Trending with q4hr renal panel labs ENDO: Hyperglycemia, resolved Dx: - glucose 282 on admission; 165 bedside glucose 02/04 (NPO) Rx: - Blood sugar goal 140-180 mg/dl RRx: - given 1.5 L D5/Half NS ID: Aspiration Pneumonia Dx: -Admission labs of Pro-Anup 165.61 (i/s/o ARF), mild leukocytosis 11.9 -Tmax 102.9 Night of 02/01 for ~1 hour; afebrile since -CXR showed significant bibasilar pneumonia -02/03: ET Tube culture grew GNR ->Klebsiella pneumoniae -MRSA negative Rx: - Cefepime (02/02- - BCx NG48 hrs RRx: -Vancomycin DC'd (02/02-02/03) -Patient received IV Zosyn 3.375 x 1 in the ED. Disposition: ICU for Septic Shock DVT prophylaxis: SCD's GI prophylaxis: Protonix 40 mg IV BID Diet: NPO Zhao: yes Lines: Peripherals, central line Drips: levo, vaso; fentanyl, Precedex Vent: AC/VC mode CODE STATUS: DNR Patient plan of care was discussed with the attending physician, Dr. Newell & senior resident Dr. Burton (PGY-2) Brandno Cabrera PGY-1 Attending Provider Attestation/Addendum Patient seen and examined with above resident, Brandon Cabrera MD. I agree with the findings, assessment, and plan of care as document except for any differences below. Patient with continued metabolic encephalopathy versus presence of leptomeningeal or metastatic brain cancers from small cell lung cancer. Patient underwent sedation holiday with transition to Precedex with limited improvement in mentation and ability to interact. This was at the request of the patient's family who though realizing that he has a terminal diagnosis remain hopeful that the patient will be able to provide his own. To end-of-life care. Patient continues to undergo slow hemodialysis as directed by nephrology. Patient continues to require vasopressor support as well as mechanical ventilation. Will continue to provide supportive care ongoing treatment to ensure patient given the best opportunity to interact with his family in the coming days with their plan to transition to comfort care early next week should there be no significant improvement. No family was at bedside though brother has been available by telephone with discussion about going past. Total critical care time: I personally spent 35 minutes for review of physiologic parameters, directing plan of care, and coordination of care with other specialists. This is exclusive of time spent teaching of staff and performing any separate billable procedures. Patient remains at significant risk for further morbidity or mortality warranting close monitoring and care only available in the ICU. Critical care services required for acute metabolic encephalopathy, acute hypoxic respiratory failure, acute renal failure, and small cell lung cancer with distant metastasis including the brain/ possible leptomeningeal.
--- NOTE | 2025-02-05 08:28 | XR_ITS ---
EXAMINATION: AP chest single view TECHNIQUE: AP portable chest single view Date and time: February 05, 2025, 0843 hours, comparison February 02, 2025 INDICATIONS: Difficulty breathing this week, history bilateral pneumonia on chest film February 02, 2025, hypoxic respiratory failure post intubation FINDINGS: Mild enlargement cardiac contour Tracheal tube tip 16 mm above gaudencio Orogastric tube in the stomach Extensive bilateral lung opacity consistent with pneumonia Mild associated heart failure with prominent vascular congestion including central vascular engorgement IMPRESSION: Extensive bilateral pneumonia especially left lung base Mild associated heart failure
[2025-02-05] MEDS: PROPOFOL 1,000 MG IVPB 1,000 MG/100 ML VIAL 4.35 MG IV (08:51)
[2025-02-05 09:42] LABS: Base Excess, Venous -1 (-3-3); O2 Saturation, Venous 90 % (96-97); PCO2, Venous 48 mmHg (36-56); PO2, Venous 59 mmHg (15-58); pH, Venous 7.34 (7.33-7.66)
--- NOTE | 2025-02-05 10:02 | ESPR_ITS ---
Documentation for date of: 02/05/25 Subjective Subjective Interval history: Interval history: Reason for consult: RAMSES, hyperkalemia History of present illness: Consult Reason: Acute kidney injury (RAMSES) in the setting of tumor lysis syndrome (TLS), hyperkalemia, hyperphosphatemia, hyperuricemia, and metabolic acidosis. Mr. 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 The patient underwent intubation on 02/01/2025, and is being managed for septic shock, possible tumor lysis syndrome, and acute renal failure. The patient?s condition was discussed with the family, and his code status has been changed to DNR. The family is in agreement with proceeding with hemodialysis. The patient is undergoing continuous renal replacement therapy (CRRT). 02/02/2025: Patient is sedated and intubated, remains in the ICU. Family has been in constant communication and was updated about the patient's prognosis and the need for dialysis. They are in agreement with all measures. Labs: WBC 9.6, Hemoglobin 7.8, Hematocrit 25.3, Platelets 72, Sodium 146 (corrected 150), Potassium 5.1, Chloride 113, Carbon Dioxide 16.7, BUN 94, Creatinine 4.4, GFR 14, Glucose 282, Lactic Acid 2.2, Uric Acid 14 (from 15.5 yesterday), Calcium 9.7, Phosphorus 7.1, Magnesium 2.3, AST 136, ALT 61, Alkaline Phosphatase 536. 02/03/2025: Patient continues to be sedated, though the ICU team has lowered sedation. He remains very jaundiced and continues on CRRT. The family has requested patient to continued to be on CRRT. No significant changes since yesterday. Labs: Hemoglobin 7.6, Hematocrit 23.5, Platelets 50, Sodium 136, Potassium 3.7, Chloride 95, Carbon Dioxide 29.8, Creatinine 0.8, GFR >60, Uric Acid: 1.1 (no rasburicase needed), Calcium 8.9, Phosphorus 1.9, Magnesium 1.7, Albumin 3.3. 02/05/2025 patient currently seen in ICU. Very jaundiced. On ventilator. On 2 pressors. Labs/medications reviewed. No urine output in the last 48 hours. Decided to proceed with CRRT due to his hemodynamic instability. Dr. Newell at bedside. Review of Systems Review of Systems ROS Unobtainable: unobtainable due to medical condition and due to endotracheal tube Exam Vital Signs Temp Pulse Resp BP Pulse Ox O2 Del Method FiO2 36.2 C 99 27 H 101/66 95 Mechanical Ventilation 60 02/05/25 16:00 02/05/25 20:00 02/05/25 10:59 02/05/25 20:00 02/05/25 19:45 02/05/25 16:00 02/05/25 19:08 Narrative Exam General: Sedated, sick looking gentleman HEENT: scleral icterus Respiratory: Intubated, bilateral breath sounds on auscultation Cardiovascular: S1, S2 normal, RRR, no murmurs, no JVD Abdominal: Distended, BS + Genitourinary: Zhao in place Musculoskeletal: Extremities tone WNL, no LE edema Neurological: Sedated, Skin: Warm, dry, intact, petechiae on bilateral lower extremities, jaundice Objective Labs 02/06/25 04:28 02/06/25 04:28 Labs: Laboratory Results - last 24 hr 02/05/25 02/05/25 02/05/25 04:02 09:30 12:04 WBC 19.7 H D RBC 2.90 L Hgb 8.9 L Hct 27.5 L MCV 95 MCH 30.7 MCHC 32.4 RDW Std Deviation 91.4 H Plt Count 81 L D Neut % (Auto) 91 H Lymph % (Auto) 3 L [place] % (Auto) 3 Eos % (Auto) 0 Baso % (Auto) 0 Neut # (Auto) 17.9 H Lymph # (Auto) 0.6 L [place] # (Auto) 0.7 Eos # (Auto) 0.1 Baso # (Auto) 0.1 Immature Gran # (Auto) 0.51 H Absolute Nucleated RBC 0.12 H Immature Gran % 3 H Nucleated RBC % 1 H VBG pH 7.34 VBG pCO2 48 D VBG pO2 59 H VBG O2 Sat (Dorota) 90 L VBG Base Excess -1 Sodium 137 136 Potassium 4.4 3.8 D Chloride 99 97 L Carbon Dioxide 23.1 30.0 Anion Gap 15 9 BUN 39 H 11 Creatinine 2.9 H D 0.8 D Estim Creat Clear Calc 24.9 L 90.3 eGFR 23 L > 60 BUN/Creatinine Ratio 13 14 Glucose 171 H 107 H D Calculated Osmolality 287 271 L Calcium 8.8 8.5 Corrected Calcium 9.4 9.0 Phosphorus 4.3 1.0 L Magnesium 2.5 1.8 Total Bilirubin 9.7 H D AST 134 H ALT 67 H Alkaline Phosphatase 648 H D Total Protein 5.9 Albumin 3.3 L 3.4 Globulin 2.6 Albumin/Globulin Ratio 1.3 02/05/25 17:35 WBC RBC Hgb Hct MCV MCH MCHC RDW Std Deviation Plt Count Neut % (Auto) Lymph % (Auto) [place] % (Auto) Eos % (Auto) Baso % (Auto) Neut # (Auto) Lymph # (Auto) [place] # (Auto) Eos # (Auto) Baso # (Auto) Immature Gran # (Auto) Absolute Nucleated RBC Immature Gran % Nucleated RBC % VBG pH VBG pCO2 VBG pO2 VBG O2 Sat (Dorota) VBG Base Excess Sodium 136 Potassium 3.5 Chloride 97 L Carbon Dioxide 26.5 Anion Gap 13 BUN 20 Creatinine 1.8 H D Estim Creat Clear Calc 40.1 L eGFR 42 L BUN/Creatinine Ratio 11 L Glucose 117 H Calculated Osmolality 275 Calcium 8.8 Corrected Calcium 9.2 Phosphorus 2.9 Magnesium 2.1 Total Bilirubin AST ALT Alkaline Phosphatase Total Protein Albumin 3.5 Globulin Albumin/Globulin Ratio ABG Interpretation ABG results: 02/01/25 02/01/25 02/02/25 21:24 23:06 00:13 ABG pH 7.12 L* 7.18 L* ABG pCO2 46 50 H ABG pO2 198 H 120 H D ABG HCO3 15 L 19 L ABG O2 Saturation 100 H 99 H ABG Base Excess -14 L -9 L VBG pH 7.18 L VBG pCO2 46 VBG pO2 108 H VBG Base Excess -10 L 02/02/25 02/05/25 09:59 09:30 ABG pH ABG pCO2 ABG pO2 ABG HCO3 ABG O2 Saturation ABG Base Excess VBG pH 7.39 7.34 VBG pCO2 31 L D 48 D VBG pO2 53 D 59 H VBG Base Excess -5 L -1 Assessment & Plan Additional Assessment & Plan Additional Plan: 64-year-old male with 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 # Acute kidney injury Patient with RAMSES, metabolic acidosis, hyperkalemia and minimal urinary output in the setting of tumor lysis syndrome. Decided to proceed with dialysis. Patient currently on 2 pressors-decided to proceed with CRRT. Critical care time spent more than 40 minutes regarding plan of care and disease management. CRRT for 12 hours 3K 138 sodium 3.5 calcium 40 bicarbonate No heparin Citrasate Blood flow 100-150 Dialysate flow 100 Saline flushes 80-100 mL/h No ultrafiltration Renal panel Q Every 6 hours while on CRRT. Orders given to ICU nurse. Critical care time spent more than 45 minutes regarding plan of care and disease management. Overall prognosis remains poor. Noted family made him DNR. Goals of care will be discussed with family Patient MRI showed multiple metastatic disease. Wants to continue over the weekend. # Metastatic lung cancer with mets to the brain-poor prognosis # Anemia # Hypoxic respiratory failure-on ventilator # Hyperuricemia Uric acid has decreased to 1.1, no need for rasburicase. Plan: * Continue monitoring uric acid levels. * No further intervention needed as uric acid is now within normal limits.
[2025-02-05] MEDS: Norepinephrine/NS 16mg/250ml 16 MG/250 ML BAG 7.477 MG IV (11:40)
[2025-02-05] MEDS: DEXMEDETOMIDINE 400 MCG IVPB 400 MCG/100 ML BAG IV (11:40)
[2025-02-05 12:46] LABS: Albumin, Serum 3.4 gm/dL (3.4-4.8); Anion Gap 9 (7-16); BUN/Creatinine Ratio 14 Ratio (12-20); Blood Urea Nitrogen 11 mg/dL (9-23); Calcium 8.5 mg/dL (8.3-10.6); Calcium (Corrected) 9.0 mg/dL (8.5-10.1); Carbon Dioxide 30.0 mMol/L (20.0-31.0); Chloride 97 mMol/L (98-107); Creatinine (Component) 0.8 mg/dL (0.6-1.3); Estimated Creatinine Clearance 90.3 mL/min (>60); Glucose 107 mg/dL (74-106); Magnesium 1.8 mg/dL (1.6-2.6); Osmolality,Calculated 271 (275-295); Phosphorous 1.0 mg/dL (2.4-5.1); Potassium 3.8 mMol/L (3.4-5.1); Sodium 136 mMol/L (136-145); eGFR > 60 See Note
--- NOTE | 2025-02-05 13:26 | PC.NURSE ---
Dr Francis aware of increase levo requirements. no new orders received
[2025-02-05] MEDS: fentaNYL CIT INJ 50 mCg/ML AMP 2ML IVP (16:34)
[2025-02-05] MEDS: PROPOFOL 1,000 MG IVPB 1,000 MG/100 ML VIAL 2.223 MG IV (17:20)
[2025-02-05] MEDS: SOD PHOS ADDITIVE 30 MMOL in SODIUM CHLORIDE 0.9% 500 ML 500 ML 62.5 MMOL IV (17:32)
[2025-02-05 18:43] LABS: Albumin, Serum 3.5 gm/dL (3.4-4.8); Anion Gap 13 (7-16); BUN/Creatinine Ratio 11 Ratio (12-20); Blood Urea Nitrogen 20 mg/dL (9-23); Calcium 8.8 mg/dL (8.3-10.6); Calcium (Corrected) 9.2 mg/dL (8.5-10.1); Carbon Dioxide 26.5 mMol/L (20.0-31.0); Chloride 97 mMol/L (98-107); Creatinine (Component) 1.8 mg/dL (0.6-1.3); Estimated Creatinine Clearance 40.1 mL/min (>60); Glucose 117 mg/dL (74-106); Magnesium 2.1 mg/dL (1.6-2.6); Osmolality,Calculated 275 (275-295); Phosphorous 2.9 mg/dL (2.4-5.1); Potassium 3.5 mMol/L (3.4-5.1); Sodium 136 mMol/L (136-145); eGFR 42 See Note
[2025-02-05] MEDS: fentaNYL 2,500 MCG/250 ML BAG 2,500 MCG/250 ML BAG 30 MCG IV (22:12)
[2025-02-05] MEDS: DEXMEDETOMIDINE 400 MCG IVPB 400 MCG/100 ML BAG 14.82 MCG IV (22:16)
[2025-02-05 22:32] LABS: Base Excess, Venous 8 (-3-3); O2 Saturation, Venous 82 % (96-97); PCO2, Venous 44 mmHg (36-56); PO2, Venous 45 mmHg (15-58); pH, Venous 7.48 (7.33-7.66)
[2025-02-05] MEDS: Norepinephrine/NS 16mg/250ml 16 MG/250 ML BAG 26.508 MG IV (23:03)
[2025-02-06] VITALS (109 sets, daily range): BP systolic 80–156; BP diastolic 50–90; PULSE 82–142; RESP 17–34; TEMP 35.8–36.2; O2SAT 94–100; BMI 25.7
[2025-02-06 01:34] LABS: Albumin, Serum 3.3 gm/dL (3.4-4.8); BUN/Creatinine Ratio 13 Ratio (12-20); Blood Urea Nitrogen < 5 mg/dL (9-23); Calcium 8.4 mg/dL (8.3-10.6); Calcium (Corrected) 9.0 mg/dL (8.5-10.1); Carbon Dioxide 30.9 mMol/L (20.0-31.0); Creatinine (Component) 0.4 mg/dL (0.6-1.3); Estimated Creatinine Clearance 180.5 mL/min (>60); Glucose 89 mg/dL (74-106); Magnesium 1.7 mg/dL (1.6-2.6); eGFR > 60 See Note
[2025-02-06] MEDS: VASOPRESSIN IN NS IVPB 20 UNIT/100 ML BAG 9 UNIT IV ×3 (01:41→23:13)
[2025-02-06 01:59] LABS: Anion Gap 10 (7-16); Chloride 96 mMol/L (98-107); Osmolality,Calculated 270 (275-295); Sodium 137 mMol/L (136-145)
[2025-02-06 02:08] LABS: Phosphorous 0.7 mg/dL (2.4-5.1); Potassium 2.7 mMol/L (3.4-5.1)
[2025-02-06 03:01] LABS: Albumin, Serum 3.4 gm/dL (3.4-4.8); Anion Gap 12 (7-16); BUN/Creatinine Ratio 10 Ratio (12-20); Blood Urea Nitrogen 10 mg/dL (9-23); Calcium 8.5 mg/dL (8.3-10.6); Calcium (Corrected) 9.0 mg/dL (8.5-10.1); Carbon Dioxide 28.8 mMol/L (20.0-31.0); Chloride 96 mMol/L (98-107); Creatinine (Component) 1.0 mg/dL (0.6-1.3); Estimated Creatinine Clearance 72.2 mL/min (>60); Glucose 101 mg/dL (74-106); Osmolality,Calculated 272 (275-295); Phosphorous 2.6 mg/dL (2.4-5.1); Potassium 3.1 mMol/L (3.4-5.1); Sodium 137 mMol/L (136-145); eGFR > 60 See Note
[2025-02-06] MEDS: POTASSIUM CHL 20 mEq IVPB 20 MEQ/100 ML BAG 50 MEQ IV ×2 (03:22→04:56)
[2025-02-06] MEDS: LACTULOSE SYRUP 20 GM/30 ML UDC NG (05:02)
[2025-02-06] MEDS: HYDROCORTISONE SOD SUCC INJ 100 MG 2 ML VIAL 50 MG IV ×4 (05:02→23:05)
[2025-02-06] MEDS: DEXMEDETOMIDINE 400 MCG IVPB 400 MCG/100 ML BAG 11.115 MCG IV (05:22)
[2025-02-06 05:39] LABS: Basophils # (Auto) 0.1 Thou/mm3 (0.0-0.2); Basophils % (Auto) 1 % (0-2.5); Eosinophils # (Auto) 0.0 Thou/mm3 (0.0-0.5); Eosinophils % (Auto) 0 % (0-10); Hematocrit 28.0 % (41.0-53.0); Hemoglobin 9.2 g/dL (13.5-16.0); Immature Granulocytes Auto 0.27 Thou/mm3 (0.00-0.00); Lymphocytes # (Auto) 0.4 Thou/mm3 (1.0-4.8); Lymphocytes % (Auto) 4 % (10-50); Mean Corpuscular HGB Conc 32.9 g/dl (31.0-37.0); Mean Corpuscular Hemoglobin 30.7 pg (25.0-35.0); Mean Corpuscular Volume 93 fL (80-100); Monocytes # (Auto) 0.4 Thou/mm3 (0.0-0.8); Monocytes % (Auto) 4 % (0-12); Neutrophils # (Auto) 9.1 Thou/mm3 (1.8-7.7); Neutrophils % (Auto) 89 % (37-80); Nucleated Red Blood Cell # 0.30 Thou/mm3 (0.00-0.00); Nucleated Red Blood Cell % 3 /100 WBC (0); RDW Standard Deviation 87.6 fL (35.1-43.9); Red Blood Count 3.00 Miln/mm3 (4.50-5.90); White Blood Count 10.2 Thou/mm3 (3.8-10.6)
[2025-02-06 05:42] LABS: Platelet Count 64 Thou/mm3 (140-440)
[2025-02-06 05:44] LABS: Slide Review Platelets confirmed
[2025-02-06 06:09] LABS: Alanine Aminotransferase 78 U/L (10-49); Albumin, Serum 3.3 gm/dL (3.4-4.8); Albumin/Globulin Ratio 1.3 (1.2-2.2); Alkaline Phosphatase 672 U/L (46-116); Anion Gap 14 (7-16); Aspartate Amino Transferase 161 U/L (0-34); BUN/Creatinine Ratio 10 Ratio (12-20); Bilirubin,Total 10.1 mg/dL (0.3-1.2); Blood Urea Nitrogen 9 mg/dL (9-23); Calcium 8.6 mg/dL (8.3-10.6); Calcium (Corrected) 9.2 mg/dL (8.5-10.1); Carbon Dioxide 28.0 mMol/L (20.0-31.0); Chloride 95 mMol/L (98-107); Creatinine (Component) 0.9 mg/dL (0.6-1.3); Estimated Creatinine Clearance 80.2 mL/min (>60); Globulin 2.5 gm/dL (2.3-3.5); Glucose 101 mg/dL (74-106); Magnesium 1.7 mg/dL (1.6-2.6); Osmolality,Calculated 272 (275-295); Phosphorous 2.4 mg/dL (2.4-5.1); Potassium 3.7 mMol/L (3.4-5.1); Sodium 137 mMol/L (136-145); Total Protein 5.8 gm/dL (5.7-8.2); eGFR > 60 See Note
[2025-02-06] MEDS: PROPOFOL 1,000 MG IVPB 1,000 MG/100 ML VIAL 11.115 MG IV (06:36)
[2025-02-06] MEDS: fentaNYL 2,500 MCG/250 ML BAG 2,500 MCG/250 ML BAG 25 MCG IV ×2 (07:13→17:25)
[2025-02-06] MEDS: [UNRECOGNIZED DRUG - OTHER] BOTH EYES ×3 (07:15→22:37)
[2025-02-06] MEDS: MINERAL OIL BOTH EYES ×3 (07:15→22:37)
[2025-02-06] MEDS: CEFEPIME INJ 1 GM in SODIUM CHLORIDE 0.9% (Popper) 50 ML IV (08:01)
--- NOTE | 2025-02-06 08:22 | ESPR_ITS ---
<Statement entered by Lukas Burton MD - 02/06/25 17:39> I have reviewed the note and agree with the resident's assessment & plan with exceptions as below. I have personally reviewed labs, imaging, home meds/prior records, examined the patient, formulated and discussed management plan with my attending Patient was seen and examined at bedside this morning. No acute overnight events. Patient has been having 6 bowel movements per day therefore decreased lactulose to 30 twice daily. Patient completed a tablet today, no more tablets today as per nephrology. Patient was weaned off sedation and is still not responsive with spontaneous movements, but no purposeful movements and unable to follow commands. Patient was also again noted to be uncomfortable off sedation. No urine output. Started trickle tube feeds. Patient electrolytes as needed. Will again have goals of care discussion with family tomorrow morning. Lukas Burton PGY2 Disclaimer: Even though this this note was dictated by speech recognition and even though it was carefully revised there may still be minor errors in application development team lead due to voice recognition software. 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 He follows up with Dr. Lomax and Dr. Ugarte at the cancer center, last chemotherapy with topotecan on 01/16/2025 and repeated on 01/30/2025 as per oncology note. Patient was brought to the ED with severe hypoxia, oxygen saturations in the low 80s with moderate to severe respiratory distress. Per ED, family stated that patient started to experience altered mental status around 4 PM today, followed by acute drop in oxygen saturations to 80% on room air. Given that the patient was unable to maintain adequate oxygenation on room air, ED intubated around 9 PM on 02/01/2025. Per oncology documentation from 2 days ago, patient was seen at the cancer center after being discharged from rehab, and family was advised at that time to take patient to the ER due to low oxygen sats. Family denied, and took the patient home on oxygen post electrolyte transfusion on 01/30/2025. Family denied any recent signs of infection or other systemic symptoms, however did endorse yellowing of his eyes . Patient was last hospitalized in December 2024, and had a prolonged hospital stay, with extensive discussions with family regarding hospice. Family actively declined hospice at that time. ER physician rediscussed hospice with family on this admission, family reconsidering, however currently want full code with all treatment. ED Course: Vitals in the ED showed soft blood pressure 90/60s, tachycardia 147 and tachypnea 24. Initial laboratory workup remarkable for mild leukocytosis WBC 11.9 neutrophil predominant, normocytic anemia Hb 9.5 MCV 90s, thrombocytopenia plt 106, hyperkalemia 6.1, hyperphosphatemia 6, bicarb 14.6, RAMSES: BUN 106, creatinine 4.7 (baseline 1.2?1.3) and GFR 13. ABG pH 7.18, CO2 50, LFT: T. bili 11.9, ALP 696, AST 149, ALT 76 and elevated LDH 526. Patient also had elevated Pro-Anup 165.61. UA remarkable for 1+ protein, 3+ blood, 1+ bilirubin, 133 RBC, otherwise sterile. On imaging, chest x-ray showed bilateral consolidation, with severe left apical pleural disease. In the ED, patient was given 2.5 L IV fluids, albuterol and insulin 7.5 units for potassium, and started on fentanyl postintubation. 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 Interval History in ICU: 02/02/2025: Patient in the morning was assessed and examined in the ICU, found to be sedated initially on versed and fentanyl; was later switched to fentanyl and ordered propofol for sedation if needed with goal rass of -2. Patient is being mechanically ventillated after being found to have respiratory distress/decompensation. Patient was placed on levophed initially and throughout the day ended up needing vasopressin. Neprhology was consulted and recommended patient get TABLO dialysis for elevated uric acid levels, electrolyte derangements along with metabolic acidosis. Patient's family was consented for central line and was placed after that. Patient had CT imaging done of head that found mets and imaging of chest/abdomen/pelvis which was significant for hepatic mets, extensive bilatereal pneumonia, cirrhosis, 20 mm left adrenal mass, moderate asicites, and widespread osteoblastic metastatic disease. Patient's family early this morning had a discussion with ED physicians regarding poor prognosis and patient was switched to DNR. Refer to event note for more details. Patient's family later in the day were informed of the imaging and opted to have dialysis continued for 24 hours with hope for improvement & also said they will reassess after the 24 hours after dialysis started for comfort care. Family showed understanding and all of their questions were answered. 02/03/2025: Patient had no acute overnight events. Patient continues to be sedated on fentanyl. Patient was being weaned down on sedation in order to assess patient's mentation and patient began to show signs of agitation/pain -> increased the sedation back up to keep the patient comfortable. Patient continues to be on mechanical ventilation with no acute changes to them. Patient continues to be on levophed, currently at 0.13 and continues to be on vasopressin, hydrocortisone 50 mg q6hr. Patient's ET sputum cultures came back and cultured GNR, continuing cefepime & DC'd vancomycin, MRSA nares negative as well. Will plan to contact patient's family for updates today. 02/04/2025: Patient had no acute events overnight. Today patient's son was contacted to update regarding what has happened since we last spoke, also answered questions he had. Patient made very minimal amount of urine, does not need dialysis today per nephrology. Patient continues to be sedated to a level for comfort, unable to assess mentation as when weaned down on sedation, patient appears to be in pain, continuing with sedation to level of comfort. Patient continues to receive levophed, vasopressin and hydrocortisone to maintain MAP > 65. Patient continues to be on cefepime for pneumonia. Will plan to continue to follow up with family on a daily basis for updates. 02/05/2025: Patient had no acute events overnight. Patient continues to be sedated and intubated. White count uptrending to 19.7, hemoglobin uptrending to 8.9, elevated at 2.9. Liver enzymes continue to be elevated as well. Blood cultures collected 02/01 negative for growth after 48 hours and sputum culture positive for Klebsiella pneumoniae resistant only to ampicillin. CXR this morning noted to show continued extensive bilateral pneumonia. Patient had no urine output over last 24 hours, and given climbing electrolyte panel, nephrology pursued additional day of Tablo dialysis. Prior to Tablo, Levophed was noted to be 0.11 mcg/kg/min, which has been increased to 0.29 mcg/kg/min to maintain MAP above 65 on Tablo in addition to continuing vasopressin and hydrocortisone. Given difficulty with assessing mental status with the patient's sedation, propofol will was switched to Precedex. Fentanyl was decreased to 200 mcg/hr and Precedex was ultimately decreased to 0 mcg/kg/h to elicit slight withdrawal to pain by patient. Patient appeared agitated with increased HR and RR when fentanyl was decreased to 150 mcg/hr. Will update patient's family and discuss feasibility of Tablo dialysis with nephrology given these findings. Will continue cefepime for treatment of pneumonia. 02/06/2025: Patient had no acute events overnight. Patient was noted to be tachycardic, so patient was put back on propofol for sedation. Overall status remains unchanged compared to yesterday. White count downtrending, hemoglobin uptrending, platelets stable, bilirubin uptrending, and LFTs stable. Patient continues to have no urine output. Lactulose was decreased to 30 g twice daily. Discussed case with nephrology, who does not recommend to have a dialysis today. Will continue with Levophed, vasopressin, and hydrocortisone for maintaining MAP above 65. Will also continue cefepime for treatment of pneumonia. Expected goals of care discussion tomorrow 02/07. Tube feeds resumed today per story teller recommendations. Exam Vital Signs Temp Pulse Resp BP Pulse Ox O2 Del Method FiO2 96.5 F L 90 27 H 87/59 L 97 Mechanical Ventilation 55 02/06/25 07:15 02/06/25 08:15 02/05/25 10:59 02/06/25 08:15 02/06/25 08:00 02/06/25 08:00 02/06/25 08:00 Narrative Exam General: Sedated, intubated, no acute distress. TABLO dialysis machine active. Skin: Cool, dry, intact. Jaundiced. Head: Normocephalic, atraumatic. Eye: Icteric conjunctiva, PERRL. Cardiovascular: Regular rate and rhythm, no murmur, +S1/S2. Respiratory: Lungs are clear to auscultation, respirations unlabored, no crackles, no wheezing. Gastrointestinal: Soft, nontender, mildly distended. No guarding or rebound tenderness. Extremities: No edema, no cyanosis. Clubbing present bilaterally. Neuro: RASS -4, no response to voice, minimal movement with physical stimulation. Babinski absent. Corneal reflex sluggish. Objective Labs 02/07/25 04:17 02/07/25 04:17 Labs: Laboratory Results - last 24 hr 02/05/25 02/05/25 02/05/25 09:30 12:04 17:35 WBC RBC Hgb Hct MCV MCH MCHC RDW Std Deviation Plt Count Neut % (Auto) Lymph % (Auto) [place] % (Auto) Eos % (Auto) Baso % (Auto) Neut # (Auto) Lymph # (Auto) [place] # (Auto) Eos # (Auto) Baso # (Auto) Immature Gran # (Auto) Absolute Nucleated RBC Immature Gran % Nucleated RBC % VBG pH 7.34 VBG pCO2 48 D VBG pO2 59 H VBG O2 Sat (Dorota) 90 L VBG Base Excess -1 Sodium 136 136 Potassium 3.8 D 3.5 Chloride 97 L 97 L Carbon Dioxide 30.0 26.5 Anion Gap 9 13 BUN 11 20 Creatinine 0.8 D 1.8 H D Estim Creat Clear Calc 90.3 40.1 L eGFR > 60 42 L BUN/Creatinine Ratio 14 11 L Glucose 107 H D 117 H Calculated Osmolality 271 L 275 Calcium 8.5 8.8 Corrected Calcium 9.0 9.2 Phosphorus 1.0 L 2.9 Magnesium 1.8 2.1 Total Bilirubin AST ALT Alkaline Phosphatase Total Protein Albumin 3.4 3.5 Globulin Albumin/Globulin Ratio Misc Test Result 02/05/25 02/06/25 02/06/25 22:24 01:14 PST 02:30 WBC RBC Hgb Hct MCV MCH MCHC RDW Std Deviation Plt Count Neut % (Auto) Lymph % (Auto) [place] % (Auto) Eos % (Auto) Baso % (Auto) Neut # (Auto) Lymph # (Auto) [place] # (Auto) Eos # (Auto) Baso # (Auto) Immature Gran # (Auto) Absolute Nucleated RBC Immature Gran % Nucleated RBC % VBG pH 7.48 VBG pCO2 44 VBG pO2 45 VBG O2 Sat (Dorota) 82 L VBG Base Excess 8 H Sodium 137 137 Potassium 2.7 L* D 3.1 L Chloride 96 L 96 L Carbon Dioxide 30.9 28.8 Anion Gap 10 12 BUN < 5 L 10 Creatinine 0.4 L D 1.0 D Estim Creat Clear Calc 180.5 72.2 eGFR > 60 > 60 BUN/Creatinine Ratio 13 10 L Glucose 89 101 Calculated Osmolality 270 L 272 L Calcium 8.4 8.5 Corrected Calcium 9.0 9.0 Phosphorus 0.7 L* 2.6 Magnesium 1.7 Total Bilirubin AST ALT Alkaline Phosphatase Total Protein Albumin 3.3 L 3.4 Globulin Albumin/Globulin Ratio Misc Test Result 02/06/25 04:28 WBC 10.2 D RBC 3.00 L Hgb 9.2 L Hct 28.0 L MCV 93 MCH 30.7 MCHC 32.9 RDW Std Deviation 87.6 H Plt Count 64 L D Neut % (Auto) 89 H Lymph % (Auto) 4 L [place] % (Auto) 4 Eos % (Auto) 0 Baso % (Auto) 1 Neut # (Auto) 9.1 H Lymph # (Auto) 0.4 L [place] # (Auto) 0.4 Eos # (Auto) 0.0 Baso # (Auto) 0.1 Immature Gran # (Auto) 0.27 H Absolute Nucleated RBC 0.30 H Immature Gran % 3 H Nucleated RBC % 3 H VBG pH VBG pCO2 VBG pO2 VBG O2 Sat (Dorota) VBG Base Excess Sodium 137 Potassium 3.7 D Chloride 95 L Carbon Dioxide 28.0 Anion Gap 14 BUN 9 Creatinine 0.9 Estim Creat Clear Calc 80.2 eGFR > 60 BUN/Creatinine Ratio 10 L Glucose 101 Calculated Osmolality 272 L Calcium 8.6 Corrected Calcium 9.2 Phosphorus 2.4 Magnesium 1.7 Total Bilirubin 10.1 H AST 161 H ALT 78 H Alkaline Phosphatase 672 H D Total Protein 5.8 Albumin 3.3 L Globulin 2.5 Albumin/Globulin Ratio 1.3 Misc Test Result Platelets confirmed ABG Interpretation ABG results: 02/01/25 02/01/25 02/02/25 21:24 23:06 00:13 ABG pH 7.12 L* 7.18 L* ABG pCO2 46 50 H ABG pO2 198 H 120 H D ABG HCO3 15 L 19 L ABG O2 Saturation 100 H 99 H ABG Base Excess -14 L -9 L VBG pH 7.18 L VBG pCO2 46 VBG pO2 108 H VBG Base Excess -10 L 02/02/25 02/05/25 02/05/25 09:59 09:30 22:24 ABG pH ABG pCO2 ABG pO2 ABG HCO3 ABG O2 Saturation ABG Base Excess VBG pH 7.39 7.34 7.48 VBG pCO2 31 L D 48 D 44 VBG pO2 53 D 59 H 45 VBG Base Excess -5 L -1 8 H Quality Measures Quality Measures VTE prophylaxis (SCD's) Assessment & Plan Assessment Current Active Medications: Generic Name Dose Route Start Last Admin Trade Name Freq PRN Reason Stop Dose Admin Fentanyl Citrate 25 mcg 02/05/25 21:58 Fentanyl Cit Inj 50 Mcg/Ml Amp 2ml IVP 02/10/25 21:59 Q6H PRN Moderate pain 4-6 or agitation Heparin Sodium (Porcine) 3,000 unit 02/02/25 09:42 02/02/25 09:49 Heparin Sod Inj 1000 Unit/Ml Vial 10 Ml INDWELLCAT 02/16/25 09:23 3,000 unit PRN PRN Administration DIALYSIS Hydrocortisone Sodium Succinate 50 mg 02/02/25 18:00 02/06/25 05:02 Hydrocortisone Sod Succ Inj 100 Mg 2 Ml Vial IV 03/04/25 17:59 50 mg Q6HR ARI Administration Cefepime HCl 1 gm/ Sodium 50 mls @ 100 mls/hr 02/03/25 09:00 02/06/25 08:01 Chloride IV 02/10/25 08:59 100 mls/hr QDAY ARI Administration Vasopressin/Sodium Chloride 20 unit in 100 mls @ 9 mls/hr 02/02/25 11:34 02/06/25 06:00 Vasostrict/Ns Ivpb IV 03/04/25 11:33 0.03 unit/min .Q11H7M PRN 9 mls/hr PER PROTOCOL Titration Protocol 0.03 UNIT/MIN Norepinephrine Bitartrate 16 mg in 250 mls @ 3.398 mls/hr 02/02/25 19:05 02/06/25 08:00 Levophed In Ns 16mg/250ml IV 03/04/25 19:04 0.27 mcg/kg/min .Q24H PRN 18.352 mls/hr PER PROTOCOL Titration Protocol 0.05 MCG/KG/MIN Fentanyl Citrate 2,500 mcg in 250 mls @ 2.5 mls/hr 02/03/25 09:54 02/06/25 08:00 Sublimaze Inj 2,500 Mcg/250 Ml Bag IV 02/06/25 21:20 250 mcg/hr .Q24H PRN 25 mls/hr PER PROTOCOL Titration Protocol 25 MCG/HR Dexmedetomidine/Sodium Chloride 400 mcg in 100 mls @ 3.705 mls/hr 02/05/25 11:33 02/06/25 08:00 Precedex Ivpb IV 03/07/25 11:32 0.6 mcg/kg/hr .Q24H PRN 11.115 mls/hr Per PROTOCOL Titration Protocol 0.2 MCG/KG/HR Propofol 1,000 mg in 100 mls @ 2.223 mls/hr 02/05/25 17:10 02/06/25 08:00 Diprivan Ivpb IV 03/07/25 17:09 15 mcg/kg/min .Q24H PRN 6.669 mls/hr PER PROTOCOL Titration Protocol 5 MCG/KG/MIN Lactulose 20 gm 02/02/25 00:30 02/06/25 05:02 Lactulose Syrup 20 Gm/30 Ml Udc NG 03/04/25 00:29 20 gm QID ARI Administration Protocol Multi-Ingred Cream/Lotion/Oil/Oint 0 gm 02/06/25 06:59 02/06/25 07:15 Mineral Oil/Petrolatum Wh (Lacrilube) Op Oint 3.5 Gm Tube BOTH EYES 03/08/25 06:58 3.5 gm PRN PRN Administration TO KEEP EYES MOIST Ondansetron HCl 4 mg 02/01/25 21:13 Ondansetron Inj 2 Mg/Ml Inj 2 Ml IVP 03/03/25 21:12 Q6HR PRN NAUSEA OR VOMITING Pantoprazole Sodium 40 mg 02/02/25 07:30 02/06/25 08:01 Pantoprazole Inj 40 Mg Vial IVP 03/04/25 07:29 40 mg QDAY ARI Administration Plan This patient is a 64-year-old male with past medical history of stage IV metastatic small cell lung cancer diagnosed s/p radiation and multiple cycles of chemotherapy with recurrent hospitalizations. Patient presented to [facility] ED on 02/01 for worsening fatigue and heaviness in his chest and was admitted to ICU for management of septic shock requiring vasopressors. 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 Possible contributing factors of encephalopathy include acute renal failure with severe pre-renal azotemia and metabolic acidosis from shock vs hyperammonemia vs tumor lysis syndrome -> e-lyte derangements. Dx: - Admission labs of Ammonia 92, BUN 106, Cr 4.7, K 6.1, Uric Acid 15.5, Phos 7.1, Bicarb 16.7 - MRI brain in July 2024 confirmed no mets - Head CT 02/02: Multiple cerebral metastases - Family Informed, will plan for possible goals of care discussion on 02/07 - No changes in mentation compared to 02/05 Rx: - Sedation to fentanyl, propofol, and Precedex; goal RASS of 0 if able to tolerate - Dialysis/Tablo for acute renal failure per nephrology RRx: - Discontinued Versed for sedation and continue with fentanyl mainly due to mets - use propofol only if needed - Continue stress dose steroids for cerebral metastasis and increased pressor requirement - Family is aware that prognosis is poor with advance widespread metastasis CVS: Septic Shock DDx: Pneumonia in setting of metastatic small cell lung cancer to brain, liver. Dx: - MAP 50s/60s on presentation - Femoral Central line completed for unequivocal access given earlier RIJ central line attempt - Lactic acid 2.1 -> 1.6 -> 2.1 - Bedside US showed no evidence of RV overload, Low respiratory variation of IVC, Equivocal IVC - Received 5.5L of fluids throught ICU stay Rx: -Levophed, Vasopressin for MAP >65 -Hydrocortisone 100 mg IV x1 & 50 mg IV q6hr -Cefepime (02/02- -Blood cx NG48 hrs; f/u sputum GNR cx speciation RRx: -Vancomycin (02/02-02/03) -Zosyn (02/01) Sinus tachycardia, improved DDx: septic shock Dx: - Initial HR 140-150 bpm on telemetry - On imaging, chest x-ray showed bilateral consolidation, with severe left apical pleural disease. - Total IVF bolus at the time of admission: 4L RX: - Continue to monitor heart rate PULM: Acute Hypoxic respiratory failure Mechanical Ventilation History of stage IV small cell lung cancer (primary) Mechanically ventilated for respiratory failure and inability to protect airway AHRF due to B/L pneumonia consolidations and adv small cell lung cancer (last chemotherapy 01/30) PE less likely after bedside US showed no evidence of RV overload; aspiration pneumonia suspected as patient had altered mental status and imaging showing significant bibasilar pneumonia. -(oncology, Dr. Rutledge and radiation, Dr. Ugarte) Dx: - ABG initially showed metabolic acidosis. Improved 02/02 to ABG 7.39 pH, pco2 31, po2 53 - Regarding Metastatic Lung cancer, Patient's son made the decision earlier in the morning to change Code Status to DNR after extensively being informed of poor prognosis and high probability of rapid decline. Rx: - Continue Intubation on MV: ACVC; will contact family for updates - Extensive pneumonia, on antibiotics GI: Liver metastasis due to Small cell lung cancer Hyperammonemia Jaundice 2/2 Hyperbilirubinemia Hepatitis Hypoalbuminemia Distended abdomen DDx: Newly found mets in liver i/s/o chronic cirrhosis Dx: - 02/02: LFT: T. bili 11.9, ALP 696, AST 149, ALT 76; Albumin 3.2, Ammonia 92 - CT AP 02/02 showed Cirrhosis; Numerous hepatic lesions, consider multifocal primary Jewel liver disease, hepatic metastases (hepatic lesions ranging in size from 2 to 20 mm); moderate ascites; hepatic colopathy; -US Abd 02/02: Abnormal thickening gallbladder wall, Moderate hepatomegaly, cirrhosis, mild ascites; Normal hepatopetal portal venous flow; CBD 0.4 cm Rx: - Trend LFTs with daily labs and continue tablo as recommended by nephrology -Obstruction in biliary tract can not be relieved due to metastatic liver disease HEME/ONC: Tumor lysis syndrome, resolved Stage IV metastatic small cell lung cancer Dx: - Follows Dr. Rutledge, Dr. Ugarte at the [facility] center - Started on chemotherapy with Topotecan on 01/16/2025 and repeated on 01/30/2025 as per oncology note. - Admission labs: RAMSES: BUN 113 ->106, Cr 4.7 (baseline 1.2?1.3) and GFR 13; Hyperkalemia 6.1 -> 5.4 -> 5.1; Hyperphosphatemia 6 -> 7.1 -> 6.1; Bicarb 14.6 - > 16.9 -> 16.2; URIC ACID 15.5 -> 14.0; Lactic acid 2.1 -> 2.1 on pm draw Rx: - Nephrology consulted, Tablo dialysis as recommended and managed by nephrology - Allopurinol 300 mg twice daily for now RRx: - Total IVF bolus at the time of admission: 4L - Rasburicase 3mg IV x1 - Patient was given 1 amp of bicarb in the ED. Bicarb improved from 14.6 --> 16.9 at midnight - 5.5 L fluid given in total #Chronic Anemia #Chronic Thrombocytopenia #Leukocytosis, improved Chronic anemia and thrombocytopenia likely due to combination of chemo treatment, met cancer, cirrhosis Leukocytosis likely due to septic shock Dx: -hgb no significant changes in 7's, plt continues to be between 50-100 Rx: -Treat septic shock; will continue to monitor cbc -PRBC if hgb drops below 7 #Coagulopathy Multifactorial, patient has chronic cirrhosis with newly found liver mets, patient presented with azotemia (ARF) in setting of septic shock Dx: -02/01: PT 13.5, APTT 39.3, d-dimer >3820 Rx: -Monitor for s/s of bleeding/ bruising -SCDs for DVT prophylaxis RENAL: RAMSES/ARF, needing dialysis Anion gap metabolic acidosis, resolved Lactic Acidosis , resolved Hyperphosphatemia, resolved Hyperuricemia, resolved Hyperkalemia, resolved ARF due to septic shock; contributing factor of tumor lysis syndrome i/s/o chemo Metabolic acidosis w/ incomplete respiratory compensation due to shock E-lyte derangements due to tumor lysis syndrome Dx: - Admission labs: RAMSES: BUN 113 ->106, Cr 4.7 (baseline 1.2?1.3) and GFR 13; Hyperkalemia 6.1 -> 5.4 -> 5.1; Hyperphosphatemia 6 -> 7.1 -> 6.1; Bicarb 14.6 - > 16.9 -> 16.2; URIC ACID 15.5 -> 14.0; Lactic acid 2.1 -> 2.1 on pm draw - 02/03: Electrolyte elevations resolved Rx: - Tablo dialysis 02/02-02/03; no dialysis 02/04 per nephrology (KFT and e-lytes acceptable); dialysis 02/05 - Treating septic shock - allopurinol 300 mg twice daily for hyperuricemia RRx: - Patient was given total 5.5 L IV fluids + Albuterol + insulin 7.5 units and dextrose for HyperK - Sevelamer 800mg x1 PO via OGT - Rasburicase 3mg IV x1 ordered, unable to be given due to lack of supply in house, pending - Nephrology Dr Parker consulted for further recommendations #Hyperchloremic Hypernatremia, resolved Due to large amounts of normal saline infusions for septic shock Dx: - Sodium 149, Chloride 115 - Was given total 5.5 L IV fluids Rx: - Anticipate correction on daily draws - Trending with q4hr renal panel labs ENDO: Hyperglycemia, resolved Dx: - glucose 282 on admission; 165 bedside glucose 02/04 (NPO) Rx: - Blood sugar goal 140-180 mg/dl RRx: - given 1.5 L D5/Half NS ID: Aspiration Pneumonia Dx: -Admission labs of Pro-Anup 165.61 (i/s/o ARF), mild leukocytosis 11.9 -Tmax 102.9 Night of 02/01 for ~1 hour; afebrile since -CXR showed significant bibasilar pneumonia -02/03: ET Tube culture grew GNR ->Klebsiella pneumoniae -MRSA negative Rx: - Cefepime (02/02- - BCx NG48 hrs RRx: -Vancomycin DC'd (02/02-02/03) -Patient received IV Zosyn 3.375 x 1 in the ED. Disposition: ICU for Septic Shock DVT prophylaxis: SCD's GI prophylaxis: Protonix 40 mg IV BID Diet: NPO Zhao: yes Lines: Peripherals, central line, NG tube Drips: levo, vaso; fentanyl, Precedex, propofol Vent: AC/VC mode CODE STATUS: DNR Patient plan of care was discussed with the attending physician, Dr. Newell & senior resident Dr. Francis (PGY-2) Brandon Cabrera PGY-1 Attending Provider Attestation/Addendum Patient seen and examined with above resident, Brandon Cabrera, . I agree with the findings, assessment, and plan of care as documented except for any differences below. Patient underwent sedation holidays once again with no evidence of significant improvement in his encephalopathy versus metastatic cancer induced/leptomeningeal involvement. Patient's family continues to be aware of failure to improve. They understand that we have now discontinued hemodialysis with Tablo. Patient remains on vasopressor support as well as mechanical ventilation. He has poor prognosis secondary to metastatic lung disease with multiorgan failure. In light of this, they would like to reassess early next week potential transition to comfort measures only. They had remained hopeful that he would have some improvement in his neurologic status and be able to provide his own in place at end-of-life care. Family has been at bedside and his brother has been readily available by telephone for and continues to be in contact with housestaff. Total critical care time: Personally spent 35 minutes for review of physiologic parameters, directing plan of care throughout the day, coordination of care, and counseling family. This is exclusive of time spent teaching housestaff performing separate billable procedures. Patient remained at significant risk for further morbidity and mortality warranting close monitoring and care only available in the ICU. Critical care services required for septic shock, acute metabolic encephalopathy/metastatic brain/leptomeningeal involvement, acute renal failure, small cell lung cancer, and acute hypoxic respiratory failure.
--- NOTE | 2025-02-06 08:57 | ESPR_ITS ---
Documentation for date of: 02/06/25 Subjective Subjective Interval history: Interval history: Reason for consult: RAMSES, hyperkalemia History of present illness: Consult Reason: Acute kidney injury (RAMSES) in the setting of tumor lysis syndrome (TLS), hyperkalemia, hyperphosphatemia, hyperuricemia, and metabolic acidosis. Mr. 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 The patient underwent intubation on 02/01/2025, and is being managed for septic shock, possible tumor lysis syndrome, and acute renal failure. The patient?s condition was discussed with the family, and his code status has been changed to DNR. The family is in agreement with proceeding with hemodialysis. The patient is undergoing continuous renal replacement therapy (CRRT). 02/02/2025: Patient is sedated and intubated, remains in the ICU. Family has been in constant communication and was updated about the patient's prognosis and the need for dialysis. They are in agreement with all measures. Labs: WBC 9.6, Hemoglobin 7.8, Hematocrit 25.3, Platelets 72, Sodium 146 (corrected 150), Potassium 5.1, Chloride 113, Carbon Dioxide 16.7, BUN 94, Creatinine 4.4, GFR 14, Glucose 282, Lactic Acid 2.2, Uric Acid 14 (from 15.5 yesterday), Calcium 9.7, Phosphorus 7.1, Magnesium 2.3, AST 136, ALT 61, Alkaline Phosphatase 536. 02/03/2025: Patient continues to be sedated, though the ICU team has lowered sedation. He remains very jaundiced and continues on CRRT. The family has requested patient to continued to be on CRRT. No significant changes since yesterday. Labs: Hemoglobin 7.6, Hematocrit 23.5, Platelets 50, Sodium 136, Potassium 3.7, Chloride 95, Carbon Dioxide 29.8, Creatinine 0.8, GFR >60, Uric Acid: 1.1 (no rasburicase needed), Calcium 8.9, Phosphorus 1.9, Magnesium 1.7, Albumin 3.3. 02/06/2025 patient currently seen in ICU. Very jaundiced. On ventilator. On 2 pressors. Labs/medications reviewed. No urine output in the last 48 hours. Patient to receive CRRT and completed at 9 AM today. Poor prognosis-Will hold repeat CRRT today. Dr. Newell at bedside. Review of Systems Review of Systems ROS Unobtainable: unobtainable due to medical condition and due to endotracheal tube Exam Vital Signs Temp Pulse Resp BP Pulse Ox O2 Del Method FiO2 35.9 C L 86 32 H 98/59 L 99 Mechanical Ventilation 55 02/06/25 16:00 02/06/25 19:45 02/06/25 11:03 02/06/25 19:45 02/06/25 19:45 02/06/25 17:45 02/06/25 17:45 Narrative Exam General: Sedated, sick looking gentleman HEENT: scleral icterus Respiratory: Intubated, bilateral breath sounds on auscultation Cardiovascular: S1, S2 normal, RRR, no murmurs, no JVD Abdominal: Distended, BS + Genitourinary: Zhao in place Musculoskeletal: Extremities tone WNL, no LE edema Neurological: Sedated, Skin: Warm, dry, intact, petechiae on bilateral lower extremities, jaundice Objective Labs 02/06/25 04:28 02/06/25 10:54 Labs: Laboratory Results - last 24 hr 02/05/25 02/06/25 02/06/25 22:24 01:14 PST 02:30 WBC RBC Hgb Hct MCV MCH MCHC RDW Std Deviation Plt Count Neut % (Auto) Lymph % (Auto) [place] % (Auto) Eos % (Auto) Baso % (Auto) Neut # (Auto) Lymph # (Auto) [place] # (Auto) Eos # (Auto) Baso # (Auto) Immature Gran # (Auto) Absolute Nucleated RBC Immature Gran % Nucleated RBC % VBG pH 7.48 VBG pCO2 44 VBG pO2 45 VBG O2 Sat (Dorota) 82 L VBG Base Excess 8 H Sodium 137 137 Potassium 2.7 L* D 3.1 L Chloride 96 L 96 L Carbon Dioxide 30.9 28.8 Anion Gap 10 12 BUN < 5 L 10 Creatinine 0.4 L D 1.0 D Estim Creat Clear Calc 180.5 72.2 eGFR > 60 > 60 BUN/Creatinine Ratio 13 10 L Glucose 89 101 Calculated Osmolality 270 L 272 L Calcium 8.4 8.5 Corrected Calcium 9.0 9.0 Phosphorus 0.7 L* 2.6 Magnesium 1.7 Total Bilirubin AST ALT Alkaline Phosphatase Total Protein Albumin 3.3 L 3.4 Globulin Albumin/Globulin Ratio Misc Test Result 02/06/25 02/06/25 04:28 10:54 WBC 10.2 D RBC 3.00 L Hgb 9.2 L Hct 28.0 L MCV 93 MCH 30.7 MCHC 32.9 RDW Std Deviation 87.6 H Plt Count 64 L D Neut % (Auto) 89 H Lymph % (Auto) 4 L [place] % (Auto) 4 Eos % (Auto) 0 Baso % (Auto) 1 Neut # (Auto) 9.1 H Lymph # (Auto) 0.4 L [place] # (Auto) 0.4 Eos # (Auto) 0.0 Baso # (Auto) 0.1 Immature Gran # (Auto) 0.27 H Absolute Nucleated RBC 0.30 H Immature Gran % 3 H Nucleated RBC % 3 H VBG pH VBG pCO2 VBG pO2 VBG O2 Sat (Dorota) VBG Base Excess Sodium 137 137 Potassium 3.7 D 3.3 L Chloride 95 L 96 L Carbon Dioxide 28.0 26.7 Anion Gap 14 14 BUN 9 8 L Creatinine 0.9 0.8 Estim Creat Clear Calc 80.2 90.3 eGFR > 60 > 60 BUN/Creatinine Ratio 10 L 10 L Glucose 101 106 Calculated Osmolality 272 L 272 L Calcium 8.6 8.4 Corrected Calcium 9.2 9.0 Phosphorus 2.4 2.2 L Magnesium 1.7 1.6 Total Bilirubin 10.1 H AST 161 H ALT 78 H Alkaline Phosphatase 672 H D Total Protein 5.8 Albumin 3.3 L 3.3 L Globulin 2.5 Albumin/Globulin Ratio 1.3 Misc Test Result Platelets confirmed ABG Interpretation ABG results: 02/01/25 02/01/25 02/02/25 21:24 23:06 00:13 ABG pH 7.12 L* 7.18 L* ABG pCO2 46 50 H ABG pO2 198 H 120 H D ABG HCO3 15 L 19 L ABG O2 Saturation 100 H 99 H ABG Base Excess -14 L -9 L VBG pH 7.18 L VBG pCO2 46 VBG pO2 108 H VBG Base Excess -10 L 02/02/25 02/05/25 02/05/25 09:59 09:30 22:24 ABG pH ABG pCO2 ABG pO2 ABG HCO3 ABG O2 Saturation ABG Base Excess VBG pH 7.39 7.34 7.48 VBG pCO2 31 L D 48 D 44 VBG pO2 53 D 59 H 45 VBG Base Excess -5 L -1 8 H Assessment & Plan Additional Assessment & Plan Additional Plan: 64-year-old male with 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 # Acute kidney injury Patient with RAMSES, metabolic acidosis, hyperkalemia and minimal urinary output in the setting of tumor lysis syndrome. Decided to proceed with dialysis. Patient currently on 2 pressors-decided to proceed with CRRT. Critical care time spent more than 40 minutes regarding plan of care and disease management. CRRT will be completed at 9 AM today 3K 138 sodium 3.5 calcium 40 bicarbonate No heparin Citrasate Blood flow 100-150 Dialysate flow 100 Saline flushes 80-100 mL/h No ultrafiltration Renal panel Q Every 6 hours while on CRRT. Hold off on repeat CRRT today. Overall prognosis remains poor. Noted family made him DNR. Goals of care will be discussed with family Patient MRI showed multiple metastatic disease. # Metastatic lung cancer with mets to the brain-poor prognosis # Anemia # Hypoxic respiratory failure-on ventilator # Hyperuricemia Uric acid has decreased to 1.1, no need for rasburicase. Plan: * Continue monitoring uric acid levels. * No further intervention needed as uric acid is now within normal limits.
[2025-02-06] MEDS: HEPARIN SOD INJ 1000 UNIT/ML VIAL 10 ML 3000 UNIT INDWELLCAT (10:42)
[2025-02-06] MEDS: Norepinephrine/NS 16mg/250ml 16 MG/250 ML BAG 18.352 MG IV (11:20)
[2025-02-06 11:34] LABS: Anion Gap 14 (7-16); BUN/Creatinine Ratio 10 Ratio (12-20); Blood Urea Nitrogen 8 mg/dL (9-23); Calcium 8.4 mg/dL (8.3-10.6); Carbon Dioxide 26.7 mMol/L (20.0-31.0); Chloride 96 mMol/L (98-107); Creatinine (Component) 0.8 mg/dL (0.6-1.3); Estimated Creatinine Clearance 90.3 mL/min (>60); Glucose 106 mg/dL (74-106); Magnesium 1.6 mg/dL (1.6-2.6); Osmolality,Calculated 272 (275-295); Potassium 3.3 mMol/L (3.4-5.1); Sodium 137 mMol/L (136-145); eGFR > 60 See Note
[2025-02-06 11:35] LABS: Albumin, Serum 3.3 gm/dL (3.4-4.8); Calcium (Corrected) 9.0 mg/dL (8.5-10.1); Phosphorous 2.2 mg/dL (2.4-5.1)
[2025-02-06] MEDS: DEXMEDETOMIDINE 400 MCG IVPB 400 MCG/100 ML BAG 22.23 MCG IV ×2 (12:01→16:36)
[2025-02-06] MEDS: NAPH,KPH MBDB 1 PACKET (1.5 GM) PO (13:32)
[2025-02-06] MEDS: Magnesium Sulfate 4 GM Ivpb 4 GM/50 ML BAG IV (13:32)
[2025-02-06] MEDS: PROPOFOL 1,000 MG IVPB 1,000 MG/100 ML VIAL 8.892 MG IV (13:32)
[2025-02-06] MEDS: POTASSIUM CHLORIDE 10% 20 MEQ/15 ML UDC 40 MEQ GT (14:10)
--- NOTE | 2025-02-06 14:49 | PC.SS ---
SS update: Goals of care meeting will occur tomorrow 02/07/25.
[2025-02-06] MEDS: LACTULOSE SYRUP 20 GM/30 ML UDC 30 GM NG (20:15)
[2025-02-06] MEDS: DEXMEDETOMIDINE 400 MCG IVPB 400 MCG/100 ML BAG 14.82 MCG IV (21:25)
[2025-02-07] VITALS (73 sets, daily range): BP systolic 57–127; BP diastolic 37–85; PULSE 85–123; RESP 17–31; TEMP 36.3–37; O2SAT 80–99; BMI 25.9
[2025-02-07] MEDS: PROPOFOL 1,000 MG IVPB 1,000 MG/100 ML VIAL 11.115 MG IV ×2 (00:11→07:57)
[2025-02-07] MEDS: DEXMEDETOMIDINE 400 MCG IVPB 400 MCG/100 ML BAG 18.525 MCG IV ×2 (02:20→07:57)
[2025-02-07] MEDS: Norepinephrine/NS 16mg/250ml 16 MG/250 ML BAG 14.273 MG IV (02:27)
--- NOTE | 2025-02-07 02:38 | XR_ITS ---
EXAMINATION: AP chest single view TECHNIQUE: AP portable semiupright chest single view Date and time: February 07, 2025, 0340 hours, comparison February 05, 2025 INDICATIONS: Hypoxic respiratory failure, pneumonia on earlier chest imaging this week. FINDINGS: Significant diffuse left lung and right base pneumonia Normal heart size Endotracheal tube tip 20 mm above gaudencio. Orogastric tube is in stomach, the tip is below the level of the film IMPRESSION: Significant bilateral pneumonia Endotracheal tube tip 20 mm above gaudencio.
--- NOTE | 2025-02-07 02:53 | PC.RT ---
ett noted 26 at the teeth bilateral coarse bs auscultated RR30s, tidal volumes 400s-500s cuffed pressured was check no leak noted DR. nortoniq assess CXR. no further respiratory orders.
[2025-02-07] MEDS: fentaNYL 2,500 MCG/250 ML BAG 2,500 MCG/250 ML BAG 25 MCG IV (03:02)
[2025-02-07] MEDS: HYDROCORTISONE SOD SUCC INJ 100 MG 2 ML VIAL 50 MG IV ×2 (05:32→11:40)
[2025-02-07 05:48] LABS: Basophils # (Auto) 0.1 Thou/mm3 (0.0-0.2); Basophils % (Auto) 1 % (0-2.5); Eosinophils # (Auto) 0.0 Thou/mm3 (0.0-0.5); Eosinophils % (Auto) 0 % (0-10); Hematocrit 26.7 % (41.0-53.0); Immature Granulocytes Auto 0.35 Thou/mm3 (0.00-0.00); Lymphocytes # (Auto) 0.4 Thou/mm3 (1.0-4.8); Lymphocytes % (Auto) 6 % (10-50); Mean Corpuscular HGB Conc 33.0 g/dl (31.0-37.0); Mean Corpuscular Hemoglobin 31.4 pg (25.0-35.0); Mean Corpuscular Volume 95 fL (80-100); Monocytes # (Auto) 0.4 Thou/mm3 (0.0-0.8); Monocytes % (Auto) 6 % (0-12); Neutrophils # (Auto) 6.0 Thou/mm3 (1.8-7.7); Neutrophils % (Auto) 83 % (37-80); Nucleated Red Blood Cell # 0.44 Thou/mm3 (0.00-0.00); Nucleated Red Blood Cell % 6 /100 WBC (0); RDW Standard Deviation 92.7 fL (35.1-43.9); Red Blood Count 2.80 Miln/mm3 (4.50-5.90); White Blood Count 7.2 Thou/mm3 (3.8-10.6)
[2025-02-07 05:49] LABS: Hemoglobin 8.8 g/dL (13.5-16.0); Platelet Count 64 Thou/mm3 (140-440)
[2025-02-07 05:51] LABS: Slide Review Platelets confirmed
[2025-02-07 06:22] LABS: Alanine Aminotransferase 81 U/L (10-49); Albumin, Serum 3.1 gm/dL (3.4-4.8); Albumin/Globulin Ratio 1.2 (1.2-2.2); Alkaline Phosphatase 660 U/L (46-116); Anion Gap 14 (7-16); Aspartate Amino Transferase 153 U/L (0-34); BUN/Creatinine Ratio 13 Ratio (12-20); Bilirubin,Total 10.8 mg/dL (0.3-1.2); Blood Urea Nitrogen 24 mg/dL (9-23); Calcium 8.3 mg/dL (8.3-10.6); Calcium (Corrected) 9.0 mg/dL (8.5-10.1); Carbon Dioxide 25.8 mMol/L (20.0-31.0); Chloride 98 mMol/L (98-107); Creatinine (Component) 1.9 mg/dL (0.6-1.3); Estimated Creatinine Clearance 38.0 mL/min (>60); Globulin 2.5 gm/dL (2.3-3.5); Glucose 172 mg/dL (74-106); Magnesium 2.5 mg/dL (1.6-2.6); Osmolality,Calculated 283 (275-295); Phosphorous 3.4 mg/dL (2.4-5.1); Potassium 3.7 mMol/L (3.4-5.1); Sodium 138 mMol/L (136-145); Total Protein 5.6 gm/dL (5.7-8.2); eGFR 39 See Note
[2025-02-07] MEDS: POTASSIUM CHLORIDE 10% 20 MEQ/15 ML UDC GT (07:13)
[2025-02-07] MEDS: CEFEPIME INJ 1 GM in SODIUM CHLORIDE 0.9% (Popper) 50 ML IV (08:04)
[2025-02-07] MEDS: LACTULOSE SYRUP 20 GM/30 ML UDC 30 GM NG (08:04)
--- NOTE | 2025-02-07 08:54 | PD.RESPRO ---
Documentation for date of: 02/07/25 Subjective Subjective Interval history: Mr. 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 The patient underwent intubation on 02/01/2025, and is being managed for septic shock, possible tumor lysis syndrome, and acute renal failure. The patient?s condition was discussed with the family, and his code status has been changed to DNR. The family is in agreement with proceeding with hemodialysis. The patient is undergoing continuous renal replacement therapy (CRRT). 02/02/2025: Patient is sedated and intubated, remains in the ICU. Family has been in constant communication and was updated about the patient's prognosis and the need for dialysis. They are in agreement with all measures. Labs: WBC 9.6, Hemoglobin 7.8, Hematocrit 25.3, Platelets 72, Sodium 146 (corrected 150), Potassium 5.1, Chloride 113, Carbon Dioxide 16.7, BUN 94, Creatinine 4.4, GFR 14, Glucose 282, Lactic Acid 2.2, Uric Acid 14 (from 15.5 yesterday), Calcium 9.7, Phosphorus 7.1, Magnesium 2.3, AST 136, ALT 61, Alkaline Phosphatase 536. 02/03/2025: Patient continues to be sedated, though the ICU team has lowered sedation. He remains very jaundiced and continues on CRRT. The family has requested patient to continued to be on CRRT. No significant changes since yesterday. Labs: Hemoglobin 7.6, Hematocrit 23.5, Platelets 50, Sodium 136, Potassium 3.7, Chloride 95, Carbon Dioxide 29.8, Creatinine 0.8, GFR >60, Uric Acid: 1.1 (no rasburicase needed), Calcium 8.9, Phosphorus 1.9, Magnesium 1.7, Albumin 3.3. 02/06/2025 patient currently seen in ICU. Very jaundiced. On ventilator. On 2 pressors. Labs/medications reviewed. No urine output in the last 48 hours. Patient to receive CRRT and completed at 9 AM today. Poor prognosis-Will hold repeat CRRT today. Dr. Newell at bedside. 02/07/2025 Patient seen and examined in ICU. On two pressors and ventilator. Continues to have no urine output. Per ICU team, family has declined Tablo at this time due to goals of care family discussion. Vitals and labs reviewed. Exam Vital Signs Temp Pulse Resp BP Pulse Ox O2 Del Method FiO2 98.0 F 87 32 H 96/63 98 Mechanical Ventilation 60 02/07/25 04:00 02/07/25 07:45 02/06/25 11:03 02/07/25 07:45 02/07/25 07:45 02/07/25 07:00 02/07/25 07:49 Narrative Exam GENERAL: intubated, vitals reviewed, jaudiced HEENT: trachea appears midline, icteric sclerae CARDIOVASCULAR: RRR, extremities perfused PULMONARY: symmetric chest rise, on vent ABDOMINAL: soft, non-distended, bowel sounds present EXTREMITIES: no peripheral edema SKIN: warm and dry, intact, no rashes, limited on visual exam NEURO: sedated Objective Labs 02/07/25 04:17 02/07/25 04:17 Labs: Laboratory Results - last 24 hr 02/06/25 02/07/25 10:54 04:17 WBC 7.2 RBC 2.80 L Hgb 8.8 L Hct 26.7 L MCV 95 MCH 31.4 MCHC 33.0 RDW Std Deviation 92.7 H Plt Count 64 L Neut % (Auto) 83 H Lymph % (Auto) 6 L [place] % (Auto) 6 Eos % (Auto) 0 Baso % (Auto) 1 Neut # (Auto) 6.0 Lymph # (Auto) 0.4 L [place] # (Auto) 0.4 Eos # (Auto) 0.0 Baso # (Auto) 0.1 Immature Gran # (Auto) 0.35 H Absolute Nucleated RBC 0.44 H Immature Gran % 5 H Nucleated RBC % 6 H Sodium 137 138 Potassium 3.3 L 3.7 Chloride 96 L 98 Carbon Dioxide 26.7 25.8 Anion Gap 14 14 BUN 8 L 24 H Creatinine 0.8 1.9 H D Estim Creat Clear Calc 90.3 38.0 L eGFR > 60 39 L BUN/Creatinine Ratio 10 L 13 Glucose 106 172 H D Calculated Osmolality 272 L 283 Calcium 8.4 8.3 Corrected Calcium 9.0 9.0 Phosphorus 2.2 L 3.4 Magnesium 1.6 2.5 Total Bilirubin 10.8 H D AST 153 H ALT 81 H Alkaline Phosphatase 660 H Total Protein 5.6 L Albumin 3.3 L 3.1 L Globulin 2.5 Albumin/Globulin Ratio 1.2 Misc Test Result Platelets confirmed ABG Interpretation ABG results: 02/01/25 02/01/25 02/02/25 21:24 23:06 00:13 ABG pH 7.12 L* 7.18 L* ABG pCO2 46 50 H ABG pO2 198 H 120 H D ABG HCO3 15 L 19 L ABG O2 Saturation 100 H 99 H ABG Base Excess -14 L -9 L VBG pH 7.18 L VBG pCO2 46 VBG pO2 108 H VBG Base Excess -10 L 02/02/25 02/05/25 02/05/25 09:59 09:30 22:24 ABG pH ABG pCO2 ABG pO2 ABG HCO3 ABG O2 Saturation ABG Base Excess VBG pH 7.39 7.34 7.48 VBG pCO2 31 L D 48 D 44 VBG pO2 53 D 59 H 45 VBG Base Excess -5 L -1 8 H Quality Measures Quality Measures VTE prophylaxis (SCD's) Assessment & Plan Assessment Current Active Medications: Generic Name Dose Route Start Last Admin Trade Name Freq PRN Reason Stop Dose Admin Fentanyl Citrate 25 mcg 02/05/25 21:58 Fentanyl Cit Inj 50 Mcg/Ml Amp 2ml IVP 02/10/25 21:59 Q6H PRN Moderate pain 4-6 or agitation Protocol Heparin Sodium (Porcine) 3,000 unit 02/02/25 09:42 02/06/25 10:42 Heparin Sod Inj 1000 Unit/Ml Vial 10 Ml INDWELLCAT 02/16/25 09:23 3,000 unit PRN PRN Administration DIALYSIS Hydrocortisone Sodium Succinate 50 mg 02/02/25 18:00 02/07/25 05:32 Hydrocortisone Sod Succ Inj 100 Mg 2 Ml Vial IV 03/04/25 17:59 50 mg Q6HR ARI Administration Cefepime HCl 1 gm/ Sodium 50 mls @ 100 mls/hr 02/03/25 09:00 02/07/25 08:04 Chloride IV 02/10/25 08:59 100 mls/hr QDAY ARI Administration Vasopressin/Sodium Chloride 20 unit in 100 mls @ 9 mls/hr 02/02/25 11:34 02/07/25 06:00 Vasostrict/Ns Ivpb IV 03/04/25 11:33 0.03 unit/min .Q11H7M PRN 9 mls/hr PER PROTOCOL Titration Protocol 0.03 UNIT/MIN Norepinephrine Bitartrate 16 mg in 250 mls @ 3.398 mls/hr 02/02/25 19:05 02/07/25 07:00 Levophed In Ns 16mg/250ml IV 03/04/25 19:04 0.21 mcg/kg/min .Q24H PRN 14.273 mls/hr PER PROTOCOL Titration Protocol 0.05 MCG/KG/MIN Dexmedetomidine/Sodium Chloride 400 mcg in 100 mls @ 3.705 mls/hr 02/05/25 11:33 02/07/25 07:57 Precedex Ivpb IV 03/07/25 11:32 1 mcg/kg/hr .Q24H PRN 18.525 mls/hr Per PROTOCOL Administration Protocol 0.2 MCG/KG/HR Propofol 1,000 mg in 100 mls @ 2.223 mls/hr 02/05/25 17:10 02/07/25 07:57 Diprivan Ivpb IV 03/07/25 17:09 25 mcg/kg/min .Q24H PRN 11.115 mls/hr PER PROTOCOL Administration Protocol 5 MCG/KG/MIN Fentanyl Citrate 2,500 mcg in 250 mls @ 2.5 mls/hr 02/06/25 21:26 02/07/25 07:00 Sublimaze Inj 2,500 Mcg/250 Ml Bag IV 02/11/25 21:25 250 mcg/hr .Q24H PRN 25 mls/hr PER PROTOCOL Titration Protocol 25 MCG/HR Lactulose 30 gm 02/06/25 09:00 02/07/25 08:04 Lactulose Syrup 20 Gm/30 Ml Udc NG 03/08/25 08:59 30 gm BID ARI Administration Protocol Multi-Ingred Cream/Lotion/Oil/Oint 0 gm 02/06/25 06:59 02/06/25 22:37 Mineral Oil/Petrolatum Wh (Lacrilube) Op Oint 3.5 Gm Tube BOTH EYES 03/08/25 06:58 3.5 gm PRN PRN Administration TO KEEP EYES MOIST Ondansetron HCl 4 mg 02/01/25 21:13 Ondansetron Inj 2 Mg/Ml Inj 2 Ml IVP 03/03/25 21:12 Q6HR PRN NAUSEA OR VOMITING Pantoprazole Sodium 40 mg 02/02/25 07:30 02/07/25 08:04 Pantoprazole Inj 40 Mg Vial IVP 03/04/25 07:29 40 mg QDAY ARI Administration Plan 64-year-old male with 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 # Acute kidney injury Patient with RAMSES, metabolic acidosis, hyperkalemia and minimal urinary output in the setting of tumor lysis syndrome. Decided to proceed with dialysis. Patient currently on 2 pressors-decided to proceed with CRRT, however now goals of care discussion will take place today thus holding Tablo. Critical care time spent more than 40 minutes regarding plan of care and disease management. No Tablo today, pending GOC discussion. Overall prognosis remains poor. Noted famil made him DNR. Patient MRI showed multiple metastatic disease. # Metastatic lung cancer with mets to the brain-poor prognosis # Anemia # Hypoxic respiratory failure-on ventilator # Hyperuricemia Uric acid has decreased to 1.1, no need for rasburicase. Plan: Continue monitoring uric acid levels. No further intervention needed as uric acid is now within normal limits. Thank you in allowing participation in patient's care. Plan of care discussed with my attending, Dr. Parker. Luann Lockhart, DO Internal Medicine PGY-1 Attending Provider Attestation/Addendum Patient seen and examined with resident physician Dr. Lockhart. Note reviewed, agree with findings and recommendations.\ Remains on ventilator. Multisystem organ failure with metastatic lung cancer. Prognosis remains poor. Comfort care/hospice
[2025-02-07] MEDS: VASOPRESSIN IN NS IVPB 20 UNIT/100 ML BAG 9 UNIT IV (09:23)
--- NOTE | 2025-02-07 09:34 | PC.CM ---
Patient is opened to [facility]. He will need new orders if he discharges to home.
--- NOTE | 2025-02-07 11:20 | ESPR_ITS ---
<Statement entered by Lukas Burton MD - 02/07/25 20:14> I have reviewed the note and agree with the resident's assessment & plan with exceptions as below. I have personally reviewed labs, imaging, home meds/prior records, examined the patient, formulated and discussed management plan with my attending. Patient was seen and examined bedside's morning. No acute overnight events. Patient did not have any changes in his current condition and was weaned off sedation and was still unresponsive and only having nonpurposeful movements and seemed uncomfortable. account support manager was used to assess patient's mental status and he cannot follow any commands or cannot respond with simple commands as squeezing hands or wiggle his toes or opening or closing his eyes. At this time spoke with patient's family who stated they would like to proceed with comfort care at this time. Patient was started on comfort measures and was downgraded to medical floors. Lukas Burton PGY2 Disclaimer: Even though this this note was dictated by speech recognition and even though it was carefully revised there may still be minor errors in senior hadoop developer due to voice recognition software. 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 He follows up with Dr. Lomax and Dr. Ugarte at the cancer center, last chemotherapy with topotecan on 01/16/2025 and repeated on 01/30/2025 as per oncology note. Patient was brought to the ED with severe hypoxia, oxygen saturations in the low 80s with moderate to severe respiratory distress. Per ED, family stated that patient started to experience altered mental status around 4 PM today, followed by acute drop in oxygen saturations to 80% on room air. Given that the patient was unable to maintain adequate oxygenation on room air, ED intubated around 9 PM on 02/01/2025. Per oncology documentation from 2 days ago, patient was seen at the cancer center after being discharged from rehab, and family was advised at that time to take patient to the ER due to low oxygen sats. Family denied, and took the patient home on oxygen post electrolyte transfusion on 01/30/2025. Family denied any recent signs of infection or other systemic symptoms, however did endorse yellowing of his eyes . Patient was last hospitalized in December 2024, and had a prolonged hospital stay, with extensive discussions with family regarding hospice. Family actively declined hospice at that time. ER physician rediscussed hospice with family on this admission, family reconsidering, however currently want full code with all treatment. ED Course: Vitals in the ED showed soft blood pressure 90/60s, tachycardia 147 and tachypnea 24. Initial laboratory workup remarkable for mild leukocytosis WBC 11.9 neutrophil predominant, normocytic anemia Hb 9.5 MCV 90s, thrombocytopenia plt 106, hyperkalemia 6.1, hyperphosphatemia 6, bicarb 14.6, RAMSES: BUN 106, creatinine 4.7 (baseline 1.2?1.3) and GFR 13. ABG pH 7.18, CO2 50, LFT: T. bili 11.9, ALP 696, AST 149, ALT 76 and elevated LDH 526. Patient also had elevated Pro-Anup 165.61. UA remarkable for 1+ protein, 3+ blood, 1+ bilirubin, 133 RBC, otherwise sterile. On imaging, chest x-ray showed bilateral consolidation, with severe left apical pleural disease. In the ED, patient was given 2.5 L IV fluids, albuterol and insulin 7.5 units for potassium, and started on fentanyl postintubation. 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 Interval History in ICU: 02/02/2025: Patient in the morning was assessed and examined in the ICU, found to be sedated initially on versed and fentanyl; was later switched to fentanyl and ordered propofol for sedation if needed with goal rass of -2. Patient is being mechanically ventillated after being found to have respiratory distress/decompensation. Patient was placed on levophed initially and throughout the day ended up needing vasopressin. Neprhology was consulted and recommended patient get TABLO dialysis for elevated uric acid levels, electrolyte derangements along with metabolic acidosis. Patient's family was consented for central line and was placed after that. Patient had CT imaging done of head that found mets and imaging of chest/abdomen/pelvis which was significant for hepatic mets, extensive bilatereal pneumonia, cirrhosis, 20 mm left adrenal mass, moderate asicites, and widespread osteoblastic metastatic disease. Patient's family early this morning had a discussion with ED physicians regarding poor prognosis and patient was switched to DNR. Refer to event note for more details. Patient's family later in the day were informed of the imaging and opted to have dialysis continued for 24 hours with hope for improvement & also said they will reassess after the 24 hours after dialysis started for comfort care. Family showed understanding and all of their questions were answered. 02/03/2025: Patient had no acute overnight events. Patient continues to be sedated on fentanyl. Patient was being weaned down on sedation in order to assess patient's mentation and patient began to show signs of agitation/pain -> increased the sedation back up to keep the patient comfortable. Patient continues to be on mechanical ventilation with no acute changes to them. Patient continues to be on levophed, currently at 0.13 and continues to be on vasopressin, hydrocortisone 50 mg q6hr. Patient's ET sputum cultures came back and cultured GNR, continuing cefepime & DC'd vancomycin, MRSA nares negative as well. Will plan to contact patient's family for updates today. 02/04/2025: Patient had no acute events overnight. Today patient's son was contacted to update regarding what has happened since we last spoke, also answered questions he had. Patient made very minimal amount of urine, does not need dialysis today per nephrology. Patient continues to be sedated to a level for comfort, unable to assess mentation as when weaned down on sedation, patient appears to be in pain, continuing with sedation to level of comfort. Patient continues to receive levophed, vasopressin and hydrocortisone to maintain MAP > 65. Patient continues to be on cefepime for pneumonia. Will plan to continue to follow up with family on a daily basis for updates. 02/05/2025: Patient had no acute events overnight. Patient continues to be sedated and intubated. White count uptrending to 19.7, hemoglobin uptrending to 8.9, elevated at 2.9. Liver enzymes continue to be elevated as well. Blood cultures collected 02/01 negative for growth after 48 hours and sputum culture positive for Klebsiella pneumoniae resistant only to ampicillin. CXR this morning noted to show continued extensive bilateral pneumonia. Patient had no urine output over last 24 hours, and given climbing electrolyte panel, nephrology pursued additional day of Tablo dialysis. Prior to Tablo, Levophed was noted to be 0.11 mcg/kg/min, which has been increased to 0.29 mcg/kg/min to maintain MAP above 65 on Tablo in addition to continuing vasopressin and hydrocortisone. Given difficulty with assessing mental status with the patient's sedation, propofol will was switched to Precedex. Fentanyl was decreased to 200 mcg/hr and Precedex was ultimately decreased to 0 mcg/kg/h to elicit slight withdrawal to pain by patient. Patient appeared agitated with increased HR and RR when fentanyl was decreased to 150 mcg/hr. Will update patient's family and discuss feasibility of Tablo dialysis with nephrology given these findings. Will continue cefepime for treatment of pneumonia. 02/06/2025: Patient had no acute events overnight. Patient was noted to be tachycardic, so patient was put back on propofol for sedation. Overall status remains unchanged compared to yesterday. White count downtrending, hemoglobin uptrending, platelets stable, bilirubin uptrending, and LFTs stable. Patient continues to have no urine output. Lactulose was decreased to 30 g twice daily. Discussed case with nephrology, who does not recommend to have a dialysis today. Will continue with Levophed, vasopressin, and hydrocortisone for maintaining MAP above 65. Will also continue cefepime for treatment of pneumonia. Expected goals of care discussion tomorrow 02/07. Tube feeds resumed today per mutuel department manager recommendations. 02/07/2025: Overnight, there was concern that ET tube had moved, repeat CXR showed that tube remained in same position compared to prior. Patient continues to be intermittently tachycardic, improved on propofol. Continues to be tachypnic. Patient was awake this morning, however upon exam, was not responsive to verbal commands despite Syriac interpretation via truck greaser (ID [id number]), also nonresponsive to physical stimulation. WBC continues to downtrend on cefepime, hemoglobin and platelets stable. Creatinine increased to 1.9 from 0.8 yesterday, discussed with nephrology and will continue to hold Tablo per pending [facility] discussion. Had goals of care discussion with patient's son Mehran in person as well as patient's brother, Jorge, over phone regarding patient's overall condition and poor prognosis, both were agreeable to placing patient on comfort care. Patient was removed from pressors and sedation at 1349, extubated at 1354. Exam Vital Signs Temp Pulse Resp BP Pulse Ox O2 Del Method FiO2 98.4 F 86 32 H 94/56 L 99 Mechanical Ventilation 55 02/07/25 08:00 02/07/25 10:45 02/06/25 11:03 02/07/25 10:45 02/07/25 10:45 02/07/25 10:00 02/07/25 10:30 Narrative Exam General: Sedated, intubated, no acute distress. Skin: Cool, dry, intact. Jaundiced. Head: Normocephalic, atraumatic. Eye: Icteric conjunctiva, PERRL. Cardiovascular: Regular rate and rhythm, no murmur, +S1/S2. Respiratory: Lungs are clear to auscultation, respirations unlabored, no crackles, no wheezing. Gastrointestinal: Soft, nontender, mildly distended. No guarding or rebound tenderness. Extremities: No edema, no cyanosis. Clubbing present bilaterally. Neuro: RASS -5, no response to voice, no movement with physical stimulation. Babinski absent. Corneal reflex sluggish Objective Labs 02/07/25 04:17 02/07/25 04:17 Labs: Laboratory Results - last 24 hr 02/06/25 02/07/25 10:54 04:17 WBC 7.2 RBC 2.80 L Hgb 8.8 L Hct 26.7 L MCV 95 MCH 31.4 MCHC 33.0 RDW Std Deviation 92.7 H Plt Count 64 L Neut % (Auto) 83 H Lymph % (Auto) 6 L [place] % (Auto) 6 Eos % (Auto) 0 Baso % (Auto) 1 Neut # (Auto) 6.0 Lymph # (Auto) 0.4 L [place] # (Auto) 0.4 Eos # (Auto) 0.0 Baso # (Auto) 0.1 Immature Gran # (Auto) 0.35 H Absolute Nucleated RBC 0.44 H Immature Gran % 5 H Nucleated RBC % 6 H Sodium 137 138 Potassium 3.3 L 3.7 Chloride 96 L 98 Carbon Dioxide 26.7 25.8 Anion Gap 14 14 BUN 8 L 24 H Creatinine 0.8 1.9 H D Estim Creat Clear Calc 90.3 38.0 L eGFR > 60 39 L BUN/Creatinine Ratio 10 L 13 Glucose 106 172 H D Calculated Osmolality 272 L 283 Calcium 8.4 8.3 Corrected Calcium 9.0 9.0 Phosphorus 2.2 L 3.4 Magnesium 1.6 2.5 Total Bilirubin 10.8 H D AST 153 H ALT 81 H Alkaline Phosphatase 660 H Total Protein 5.6 L Albumin 3.3 L 3.1 L Globulin 2.5 Albumin/Globulin Ratio 1.2 Misc Test Result Platelets confirmed ABG Interpretation ABG results: 02/01/25 02/01/25 02/02/25 21:24 23:06 00:13 ABG pH 7.12 L* 7.18 L* ABG pCO2 46 50 H ABG pO2 198 H 120 H D ABG HCO3 15 L 19 L ABG O2 Saturation 100 H 99 H ABG Base Excess -14 L -9 L VBG pH 7.18 L VBG pCO2 46 VBG pO2 108 H VBG Base Excess -10 L 02/02/25 02/05/25 02/05/25 09:59 09:30 22:24 ABG pH ABG pCO2 ABG pO2 ABG HCO3 ABG O2 Saturation ABG Base Excess VBG pH 7.39 7.34 7.48 VBG pCO2 31 L D 48 D 44 VBG pO2 53 D 59 H 45 VBG Base Excess -5 L -1 8 H Quality Measures Quality Measures VTE prophylaxis (SCD's) Assessment & Plan Assessment Current Active Medications: Generic Name Dose Route Start Last Admin Trade Name Freq PRN Reason Stop Dose Admin Fentanyl Citrate 25 mcg 02/05/25 21:58 Fentanyl Cit Inj 50 Mcg/Ml Amp 2ml IVP 02/10/25 21:59 Q6H PRN Moderate pain 4-6 or agitation Protocol Heparin Sodium (Porcine) 3,000 unit 02/02/25 09:42 02/06/25 10:42 Heparin Sod Inj 1000 Unit/Ml Vial 10 Ml INDWELLCAT 02/16/25 09:23 3,000 unit PRN PRN Administration DIALYSIS Hydrocortisone Sodium Succinate 50 mg 02/02/25 18:00 02/07/25 05:32 Hydrocortisone Sod Succ Inj 100 Mg 2 Ml Vial IV 03/04/25 17:59 50 mg Q6HR ARI Administration Cefepime HCl 1 gm/ Sodium 50 mls @ 100 mls/hr 02/03/25 09:00 02/07/25 08:04 Chloride IV 02/10/25 08:59 100 mls/hr QDAY ARI Administration Vasopressin/Sodium Chloride 20 unit in 100 mls @ 9 mls/hr 02/02/25 11:34 02/07/25 09:23 Vasostrict/Ns Ivpb IV 03/04/25 11:33 0.03 unit/min .Q11H7M PRN 9 mls/hr PER PROTOCOL Administration Protocol 0.03 UNIT/MIN Norepinephrine Bitartrate 16 mg in 250 mls @ 3.398 mls/hr 02/02/25 19:05 02/07/25 10:00 Levophed In Ns 16mg/250ml IV 03/04/25 19:04 0.21 mcg/kg/min .Q24H PRN 14.273 mls/hr PER PROTOCOL Titration Protocol 0.05 MCG/KG/MIN Dexmedetomidine/Sodium Chloride 400 mcg in 100 mls @ 3.705 mls/hr 02/05/25 11:33 02/07/25 10:00 Precedex Ivpb IV 03/07/25 11:32 1 mcg/kg/hr .Q24H PRN 18.525 mls/hr Per PROTOCOL Titration Protocol 0.2 MCG/KG/HR Propofol 1,000 mg in 100 mls @ 2.223 mls/hr 02/05/25 17:10 02/07/25 10:00 Diprivan Ivpb IV 03/07/25 17:09 20 mcg/kg/min .Q24H PRN 8.892 mls/hr PER PROTOCOL Titration Protocol 5 MCG/KG/MIN Fentanyl Citrate 2,500 mcg in 250 mls @ 2.5 mls/hr 02/06/25 21:26 02/07/25 10:00 Sublimaze Inj 2,500 Mcg/250 Ml Bag IV 02/11/25 21:25 250 mcg/hr .Q24H PRN 25 mls/hr PER PROTOCOL Titration Protocol 25 MCG/HR Lactulose 30 gm 02/06/25 09:00 02/07/25 08:04 Lactulose Syrup 20 Gm/30 Ml Udc NG 03/08/25 08:59 30 gm BID ARI Administration Protocol Multi-Ingred Cream/Lotion/Oil/Oint 0 gm 02/06/25 06:59 02/06/25 22:37 Mineral Oil/Petrolatum Wh (Lacrilube) Op Oint 3.5 Gm Tube BOTH EYES 03/08/25 06:58 3.5 gm PRN PRN Administration TO KEEP EYES MOIST Ondansetron HCl 4 mg 02/01/25 21:13 Ondansetron Inj 2 Mg/Ml Inj 2 Ml IVP 03/03/25 21:12 Q6HR PRN NAUSEA OR VOMITING Pantoprazole Sodium 40 mg 02/02/25 07:30 02/07/25 08:04 Pantoprazole Inj 40 Mg Vial IVP 03/04/25 07:29 40 mg QDAY ARI Administration Plan Patient is a 64-year-old male with past medical history of stage IV metastatic small cell lung cancer diagnosed s/p radiation and multiple cycles of chemotherapy with recurrent hospitalizations. Patient presented to [facility] ED on 02/01 for worsening fatigue and heaviness in his chest and was admitted to ICU for management of septic shock requiring vasopressors. Transitioned to comfort care on 02/07/25. 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 Possible contributing factors of encephalopathy include acute renal failure with severe pre-renal azotemia and metabolic acidosis from shock vs hyperammonemia vs tumor lysis syndrome -> e-lyte derangements. Dx: - Admission labs of Ammonia 92, BUN 106, Cr 4.7, K 6.1, Uric Acid 15.5, Phos 7.1, Bicarb 16.7 - MRI brain in July 2024 confirmed no mets - Head CT 02/02: Multiple cerebral metastases - No changes in mentation compared to 02/05 - 02/07/25: Had goals of care discussion with patient's son Mehran in person as well as patient's brother, Jorge, over phone regarding patient's overall condition and poor prognosis which they have been well aware of. Given lack in clinical improvement, both were agreeable to placing patient on comfort care. Rx: - Comfort care RRx: - Discontinued Versed for sedation and continue with fentanyl mainly due to mets - use propofol only if needed - Continue stress dose steroids for cerebral metastasis and increased pressor requirement - Family is aware that prognosis is poor with advance widespread metastasis CVS: Septic Shock DDx: Pneumonia in setting of metastatic small cell lung cancer to brain, liver. Dx: - MAP 50s/60s on presentation - Femoral Central line completed for unequivocal access given earlier RIJ central line attempt - Lactic acid 2.1 -> 1.6 -> 2.1 - Bedside US showed no evidence of RV overload, Low respiratory variation of IVC, Equivocal IVC - Received 5.5L of fluids throught ICU stay Rx: - Comfort care RRx: -Vancomycin (02/02-02/03) -Zosyn (02/01) Sinus tachycardia, improved DDx: septic shock Dx: - Initial HR 140-150 bpm on telemetry - On imaging, chest x-ray showed bilateral consolidation, with severe left apical pleural disease. - Total IVF bolus at the time of admission: 4L RX: - Comfort care PULM: Acute Hypoxic respiratory failure Mechanical Ventilation History of stage IV small cell lung cancer (primary) Mechanically ventilated for respiratory failure and inability to protect airway AHRF due to B/L pneumonia consolidations and adv small cell lung cancer (last chemotherapy 01/30) PE less likely after bedside US showed no evidence of RV overload; aspiration pneumonia suspected as patient had altered mental status and imaging showing significant bibasilar pneumonia. -(oncology, Dr. Rutledge and radiation, Dr. Ugarte) Dx: - ABG initially showed metabolic acidosis. Improved 02/02 to ABG 7.39 pH, pco2 31, po2 53 - Regarding Metastatic Lung cancer, Patient's son made the decision earlier in the morning to change Code Status to DNR after extensively being informed of poor prognosis and high probability of rapid decline. Rx: - Comfort care GI: Liver metastasis due to Small cell lung cancer Hyperammonemia Jaundice 2/2 Hyperbilirubinemia Hepatitis Hypoalbuminemia Distended abdomen DDx: Newly found mets in liver i/s/o chronic cirrhosis Dx: - 02/02: LFT: T. bili 11.9, ALP 696, AST 149, ALT 76; Albumin 3.2, Ammonia 92 - CT AP 02/02 showed Cirrhosis; Numerous hepatic lesions, consider multifocal primary Jewel liver disease, hepatic metastases (hepatic lesions ranging in size from 2 to 20 mm); moderate ascites; hepatic colopathy; -US Abd 02/02: Abnormal thickening gallbladder wall, Moderate hepatomegaly, cirrhosis, mild ascites; Normal hepatopetal portal venous flow; CBD 0.4 cm Rx: - Comfort care HEME/ONC: Tumor lysis syndrome, resolved Stage IV metastatic small cell lung cancer Dx: - Follows Dr. Rutledge, Dr. Ugarte at the cancer center - Started on chemotherapy with Topotecan on 01/16/2025 and repeated on 01/30/2025 as per oncology note. - Admission labs: RAMSES: BUN 113 ->106, Cr 4.7 (baseline 1.2?1.3) and GFR 13; Hyperkalemia 6.1 -> 5.4 -> 5.1; Hyperphosphatemia 6 -> 7.1 -> 6.1; Bicarb 14.6 - > 16.9 -> 16.2; URIC ACID 15.5 -> 14.0; Lactic acid 2.1 -> 2.1 on pm draw Rx: - Comfort care RRx: - Total IVF bolus at the time of admission: 4L - Rasburicase 3mg IV x1 - Patient was given 1 amp of bicarb in the ED. Bicarb improved from 14.6 --> 16.9 at midnight - 5.5 L fluid given in total #Chronic Anemia #Chronic Thrombocytopenia #Leukocytosis, improved Chronic anemia and thrombocytopenia likely due to combination of chemo treatment, met cancer, cirrhosis Leukocytosis likely due to septic shock Dx: -hgb no significant changes in 7's, plt continues to be between 50-100 Rx: - Comfort care #Coagulopathy Multifactorial, patient has chronic cirrhosis with newly found liver mets, patient presented with azotemia (ARF) in setting of septic shock Dx: -02/01: PT 13.5, APTT 39.3, d-dimer >3820 Rx: -Comfort care RENAL: RAMSES/ARF, needing dialysis Anion gap metabolic acidosis, resolved Lactic Acidosis , resolved Hyperphosphatemia, resolved Hyperuricemia, resolved Hyperkalemia, resolved ARF due to septic shock; contributing factor of tumor lysis syndrome i/s/o chemo Metabolic acidosis w/ incomplete respiratory compensation due to shock E-lyte derangements due to tumor lysis syndrome Dx: - Admission labs: RAMSES: BUN 113 ->106, Cr 4.7 (baseline 1.2?1.3) and GFR 13; Hyperkalemia 6.1 -> 5.4 -> 5.1; Hyperphosphatemia 6 -> 7.1 -> 6.1; Bicarb 14.6 - > 16.9 -> 16.2; URIC ACID 15.5 -> 14.0; Lactic acid 2.1 -> 2.1 on pm draw - 02/03: Electrolyte elevations resolved Rx: - Comfort care RRx: - Patient was given total 5.5 L IV fluids + Albuterol + insulin 7.5 units and dextrose for HyperK - Sevelamer 800mg x1 PO via OGT - Rasburicase 3mg IV x1 ordered, unable to be given due to lack of supply in house, pending - Nephrology Dr Parker consulted for further recommendations #Hyperchloremic Hypernatremia, resolved Due to large amounts of normal saline infusions for septic shock Dx: - Sodium 149, Chloride 115 - Was given total 5.5 L IV fluids Rx: - Comfort care ENDO: Hyperglycemia, resolved Dx: - glucose 282 on admission; 165 bedside glucose 02/04 (NPO) Rx: - Comfort care RRx: - given 1.5 L D5/Half NS ID: Aspiration Pneumonia Dx: -Admission labs of Pro-Anup 165.61 (i/s/o ARF), mild leukocytosis 11.9 -Tmax 102.9 Night of 02/01 for ~1 hour; afebrile since -CXR showed significant bibasilar pneumonia -02/03: ET Tube culture grew GNR ->Klebsiella pneumoniae -MRSA negative Rx: - Comfort care RRx: -Vancomycin DC'd (02/02-02/03) -Patient received IV Zosyn 3.375 x 1 in the ED. Disposition: ICU for Septic Shock, downgraded to med surg for comfort care CODE STATUS: DNR Patient plan of care was discussed with the resident, Dr. Francis, and attending physician, Dr. Newell. Alejandra Lockhart DO, PGY-1 Attending Provider Attestation/Addendum Patient seen and examined with above resident, Alejandra Lockhart DO. I agree with the findings, assessment, and plan of care as document except for any differences below. Patient with end-stage metastatic small cell lung cancer. Unfortunately despite repeated attempts to wean from sedation, the patient does not show any signs of significant improvement from a neurologic standpoint. He has been able to tolerate lack of hemodialysis though does not have any signs of recovery of renal function. Patient remains ventilatory dependent as well as dependent on vasopressor support for maintenance of blood pressure. At this point, patient's family has been to determine final course of action and are agreeable to transition to comfort measures only. Patient's family was invited to be at bedside but have elected of their own preference to not be at bedside. We will ask if they would like any spiritual services to be given to the patient before transition. Patient will receive support from known at our hospital. Patient transition to morphine drip prior to terminal extubation. Continue to monitor patient for agitation/anxiety as well as pain or shortness of breath to optimize his regimen throughout the process. Should the patient remain stable this evening he can be transferred to a non-ICU beds for continued care until the expected demise. Total critical care time: I personally spent 35 minutes for review of physiologic parameters, directing plan of care throughout the day, coordination of care at the end of life, and counseling patient's family at bedside and by phone. This is exclusive of time spent teaching on staff or performing any separate billable procedures. Patient remains at significant risk of further morbidity and mortality warranting close monitoring and care only available in the ICU. Critical care services required for end-of-life, metastatic small cell lung cancer, acute respiratory failure, encephalopathy secondary to metastatic malignancy, and acute renal failure.
[2025-02-07] MEDS: Morphine IV Drip 100mg/100ml 100 ML IV (13:49)
[2025-02-07] MEDS: SCOPOLAMINE 1 MG TDSY TOP (13:52)
[2025-02-07] MEDS: MORPHINE SULF INJ 4 MG/ML VIAL 2 MG IVP ×4 (14:03→17:20)
[2025-02-07] MEDS: LORazepam 2 MG/ML VIAL 1 MG IVP ×2 (14:10→16:08)
--- NOTE | 2025-02-07 15:28 | PC.SS ---
Update: Patient has been transitioned to comfort care measures.
--- NOTE | 2025-02-07 15:53 | PD.RESPRO ---
Documentation for date of: 02/07/25 Subjective Subjective Interval history: Mr. 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 Patient was intubated in the ED and admitted to ICU for AHRF 2/2 PNA and septic/hypovolemic shock i/s/o suspected tumor lysis syndrome. Patient's condition was extensively discussed with son, and decision to change patient's code status to DNR was made. Patient was found to have acute renal failure and emergent HD was initiated. Imaging was significant for bilateral pneumonia consolidations with severe left apical pleural disease with elevated procalcitonin. Patient remained sedated and started on pressors and antibiotics. When sedation was weaned to assess mentation, patient exhibited agitation and pain, and sedation was adjusted to level of comfort. Patient continued to have no urine output. On 02/07/25, another goals of care discussed was had which resulted in a consensus to decline CRRT and transition to comfort care. Patient was removed from pressors and sedation and extubated. Patient is currently on morphine gtt and not responsive to verbal or tactile stimuli. Exam Vital Signs Temp Pulse Resp BP Pulse Ox O2 Del Method FiO2 97.5 F 94 18 64/39 L 86 L Room Air 60 02/07/25 12:00 02/07/25 14:30 02/07/25 14:30 02/07/25 14:30 02/07/25 14:30 02/07/25 14:30 02/07/25 13:45 Narrative Exam General: No acute distress, unresponsive to verbal or tactile stimuli HENT: Normocephalic, atraumatic. Pupil response sluggish Neck: Supple, non-tender, no JVD, no lymphadenopathy Lungs: Symmetric chest rise Heart: Peripheral pulses intact bilaterally Abdomen: Soft, non-tender, non-distended Skin: Skin is warm, dry Objective Labs 02/07/25 04:17 02/07/25 04:17 Labs: Laboratory Results - last 24 hr 02/07/25 04:17 WBC 7.2 RBC 2.80 L Hgb 8.8 L Hct 26.7 L MCV 95 MCH 31.4 MCHC 33.0 RDW Std Deviation 92.7 H Plt Count 64 L Neut % (Auto) 83 H Lymph % (Auto) 6 L [place] % (Auto) 6 Eos % (Auto) 0 Baso % (Auto) 1 Neut # (Auto) 6.0 Lymph # (Auto) 0.4 L [place] # (Auto) 0.4 Eos # (Auto) 0.0 Baso # (Auto) 0.1 Immature Gran # (Auto) 0.35 H Absolute Nucleated RBC 0.44 H Immature Gran % 5 H Nucleated RBC % 6 H Sodium 138 Potassium 3.7 Chloride 98 Carbon Dioxide 25.8 Anion Gap 14 BUN 24 H Creatinine 1.9 H D Estim Creat Clear Calc 38.0 L eGFR 39 L BUN/Creatinine Ratio 13 Glucose 172 H D Calculated Osmolality 283 Calcium 8.3 Corrected Calcium 9.0 Phosphorus 3.4 Magnesium 2.5 Total Bilirubin 10.8 H D AST 153 H ALT 81 H Alkaline Phosphatase 660 H Total Protein 5.6 L Albumin 3.1 L Globulin 2.5 Albumin/Globulin Ratio 1.2 Misc Test Result Platelets confirmed ABG Interpretation ABG results: 02/01/25 02/01/25 02/02/25 21:24 23:06 00:13 ABG pH 7.12 L* 7.18 L* ABG pCO2 46 50 H ABG pO2 198 H 120 H D ABG HCO3 15 L 19 L ABG O2 Saturation 100 H 99 H ABG Base Excess -14 L -9 L VBG pH 7.18 L VBG pCO2 46 VBG pO2 108 H VBG Base Excess -10 L 02/02/25 02/05/25 02/05/25 09:59 09:30 22:24 ABG pH ABG pCO2 ABG pO2 ABG HCO3 ABG O2 Saturation ABG Base Excess VBG pH 7.39 7.34 7.48 VBG pCO2 31 L D 48 D 44 VBG pO2 53 D 59 H 45 VBG Base Excess -5 L -1 8 H Quality Measures Quality Measures VTE prophylaxis (SCD's) Assessment & Plan Assessment Current Active Medications: Generic Name Dose Route Start Last Admin Trade Name Freq PRN Reason Stop Dose Admin Artificial Tears 1 drop 02/07/25 13:15 Artificial Tears 225 Drop/15 Ml Btl BOTH EYES 03/09/25 13:14 Q4HR PRN Dry eyes Atropine Sulfate 2 drop 02/07/25 13:15 Atropine Sulf Op Maryann 1% 5 Ml Btl SL 03/09/25 13:14 Q4HR PRN SECRETIONS Morphine Sulfate 100 mls @ 1 mls/hr 02/07/25 13:15 02/07/25 14:39 Morphine Sulfate Iv Drip 100mg/100ml IV 02/12/25 13:14 2 mg/hr .Q24H PRN 2 mls/hr PAIN (COMFORT CARE) Titration Protocol 1 MG/HR Lorazepam 1 mg 02/07/25 14:11 Lorazepam 2 Mg/Ml Vial IVP 02/12/25 14:05 Q30MIN PRN ANXIETY Morphine Sulfate 2 mg 02/07/25 13:15 02/07/25 14:38 Morphine Sulf Inj 4 Mg/Ml Vial IVP 02/12/25 13:14 2 mg Q30M PRN Administration PAIN Ondansetron HCl 4 mg 02/01/25 21:13 Ondansetron Inj 2 Mg/Ml Inj 2 Ml IVP 03/03/25 21:12 Q6HR PRN NAUSEA OR VOMITING Scopolamine 1 mg 02/07/25 13:15 02/07/25 13:52 Scopolamine 1 Mg Tdsy TOP 03/09/25 13:14 1 mg Q3D ARI Administration Plan Mr. 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 Initially admitted to ICU for AHRF 2/2 PNA and septic/hypovolemic shock i/s/o suspected tumor lysis syndrome. Transitioned to comfort care 01/07. #Comfort care Patient was extubated, removed from pressors and sedation Plan: - Morphine gtt, titrated to patient comfort - Artificial eye drops - Ativan IV PRN - Zofran IV PRN, Scopolamine patch - Airway suction PRN #Stage IV small cell lung cancer with mets to bone, liver, brain #Septic shock requiring pressors #Acute encephalopathy #AHRF #Bilateral apical pneumonia 2/2 aspiration #Hyperammonemia #Hyperbilirubinemia #Hepatitis #Hypoalbuminemia #Tumor lysis syndrome #Chronic anemia #Chronic thrombocytopenia #Leukocytosis #Coagulopathy #RAMSES/ARF requiring CRRT Plan disussed with Dr. Lynette Simon and Dr. Ja Linda MD PGY1 Attending Provider Attestation/Addendum I, Liz Peres DO, attest that I was physically present for the luna portions of the service and evaluated the patient with the resident and I reviewed and discussed the case with the resident and agree with the resident's findings and plans of care as documented above Patient is a 64-year-old male with past medical history of stage IV metastatic small cell lung cancer status post radiation and chemotherapy. Patient was admitted for acute hypoxic respiratory failure and acute encephalopathy. Patient was intubated upon presentation to the ED. He was also noted to have worsening jaundice and scleral icterus. Patient was admitted to the ICU due to respiratory failure and had been started on dialysis due to acute renal failure, severe metabolic acidosis and electrolyte derangements, likely due to tumor lysis syndrome. He has also been treated for septic shock secondary to aspiration pneumonia with antibiotics. Patient also noted to have liver metastasis due to the small cell lung cancer resulting in hyperbilirubinemia and jaundice. Unfortunately, patient has been very difficult to wean off of sedation and has not shown any signs of improvement in terms of neurological status. He also continues to require vasopressor support. Due to lack of improvement, family has decided to transition patient to comfort measures at this time. Patient has been downgraded from the ICU to continue with comfort measures. Patient was seen and evaluated in 252 this afternoon. Patient is currently on morphine drip and appears comfortable. No family at bedside.
--- NOTE | 2025-02-07 18:10 | PC.NURSE ---
Notified Augusto Laurent of patients transfer from ICU to [facility]
[2025-02-08] MEDS: MORPHINE SULF INJ 4 MG/ML VIAL 2 MG IVP ×6 (04:51→15:41)
[2025-02-08 06:00] VITALS: BMI 25.9
--- NOTE | 2025-02-08 07:35 | ESPR_ITS ---
<Statement entered by Brittany Simon MD - 02/08/25 17:25> Patient is seen at bedside appears to be having some agonal breathing therefore morphine drip is titrated up to 4 mg. Patient's son and cousin are also at bedside and are updated and discussed with them that the goal of comfort care to keep him comfortable as he passes. Please contact son for any questions and updates given overnight. Patient was seen and examined by me personally. I have directly supervised and reviewed documentation by the team resident and agree with its findings. ------- Plan of care was discussed with the attending, Dr. Ja Simon, PGY-2 Documentation for date of: 02/08/25 Subjective Subjective Interval history: NAEO. Continues on comfort care with titration of morphine gtt to patient comfort. VS tachycardic to 110s, tachypneic to 20s, spO2 80s on room air, BP decreased with MAPs in 40-50s. Uptitrated morphine gtt to 4 mg/hr with improvement of tachypnea. Exam Vital Signs Temp Pulse Resp BP Pulse Ox O2 Del Method FiO2 98.6 F 123 H 28 H 94/61 83 L Room Air 60 02/07/25 20:00 02/07/25 20:00 02/07/25 20:00 02/07/25 20:00 02/07/25 20:00 02/07/25 20:00 02/07/25 13:45 Narrative Exam General: No acute distress, unresponsive to verbal or tactile stimuli HENT: Normocephalic, atraumatic. Pupil response sluggish Neck: Supple, non-tender, no JVD, no lymphadenopathy Lungs: Symmetric chest rise Heart: Peripheral pulses intact bilaterally Abdomen: Soft, non-tender, non-distended Skin: Skin is warm, dry Objective Labs 02/07/25 04:17 02/07/25 04:17 ABG Interpretation ABG results: 02/01/25 02/01/25 02/02/25 21:24 23:06 00:13 ABG pH 7.12 L* 7.18 L* ABG pCO2 46 50 H ABG pO2 198 H 120 H D ABG HCO3 15 L 19 L ABG O2 Saturation 100 H 99 H ABG Base Excess -14 L -9 L VBG pH 7.18 L VBG pCO2 46 VBG pO2 108 H VBG Base Excess -10 L 02/02/25 02/05/25 02/05/25 09:59 09:30 22:24 ABG pH ABG pCO2 ABG pO2 ABG HCO3 ABG O2 Saturation ABG Base Excess VBG pH 7.39 7.34 7.48 VBG pCO2 31 L D 48 D 44 VBG pO2 53 D 59 H 45 VBG Base Excess -5 L -1 8 H Quality Measures Quality Measures VTE prophylaxis (SCD's) Assessment & Plan Assessment Current Active Medications: Generic Name Dose Route Start Last Admin Trade Name Freq PRN Reason Stop Dose Admin Artificial Tears 1 drop 02/07/25 13:15 Artificial Tears 225 Drop/15 Ml Btl BOTH EYES 03/09/25 13:14 Q4HR PRN Dry eyes Atropine Sulfate 2 drop 02/07/25 13:15 Atropine Sulf Op Maryann 1% 5 Ml Btl SL 03/09/25 13:14 Q4HR PRN SECRETIONS Morphine Sulfate 100 mls @ 1 mls/hr 02/07/25 13:15 02/07/25 17:25 Morphine Sulfate Iv Drip 100mg/100ml IV 02/12/25 13:14 3 mg/hr .Q24H PRN 3 mls/hr PAIN (COMFORT CARE) Titration Protocol 1 MG/HR Lorazepam 1 mg 02/07/25 14:11 02/07/25 16:08 Lorazepam 2 Mg/Ml Vial IVP 02/12/25 14:05 1 mg Q30MIN PRN Administration ANXIETY Morphine Sulfate 2 mg 02/07/25 13:15 02/08/25 04:51 Morphine Sulf Inj 4 Mg/Ml Vial IVP 02/12/25 13:14 2 mg Q30M PRN Administration PAIN Ondansetron HCl 4 mg 02/01/25 21:13 Ondansetron Inj 2 Mg/Ml Inj 2 Ml IVP 03/03/25 21:12 Q6HR PRN NAUSEA OR VOMITING Scopolamine 1 mg 02/07/25 13:15 02/07/25 13:52 Scopolamine 1 Mg Tdsy TOP 03/09/25 13:14 1 mg Q3D ARI Administration Plan Mr. 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 Initially admitted to ICU for AHRF 2/2 PNA and septic/hypovolemic shock i/s/o suspected tumor lysis syndrome. Transitioned to comfort care 01/07. #Comfort care Patient was extubated, removed from pressors and sedation 01/07 Plan: - Morphine gtt, titrated to patient comfort - Morphine 2 mg IV q30 min PRN - if >2 pushes required, increase gtt by 1 mg/hr - Artificial eye drops - Ativan IV PRN - Zofran IV PRN, Scopolamine patch - Airway suction PRN #Stage IV small cell lung cancer with mets to bone, liver, brain #Septic shock requiring pressors #Acute encephalopathy #AHRF #Bilateral apical pneumonia 2/2 aspiration #Hyperammonemia #Hyperbilirubinemia #Hepatitis #Hypoalbuminemia #Tumor lysis syndrome #Chronic anemia #Chronic thrombocytopenia #Leukocytosis #Coagulopathy #RAMSES/ARF requiring CRRT Plan disussed with Dr. Lynette Simon and Dr. Ja Linda MD PGY1 Attending Provider Attestation/Addendum I, Liz Peres DO, attest that I was physically present for the luna portions of the service and evaluated the patient with the resident and I reviewed and discussed the case with the resident and agree with the resident's findings and plans of care as documented above
[2025-02-08] MEDS: LORazepam 2 MG/ML VIAL 1 MG IVP ×2 (08:46→13:55)
--- NOTE | 2025-02-08 09:54 | ESPR_ITS ---
Documentation for date of: 02/08/25 Subjective Subjective Interval history: Mr. 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 The patient underwent intubation on 02/01/2025, and is being managed for septic shock, possible tumor lysis syndrome, and acute renal failure. The patient?s condition was discussed with the family, and his code status has been changed to DNR. The family is in agreement with proceeding with hemodialysis. The patient is undergoing continuous renal replacement therapy (CRRT). 02/02/2025: Patient is sedated and intubated, remains in the ICU. Family has been in constant communication and was updated about the patient's prognosis and the need for dialysis. They are in agreement with all measures. Labs: WBC 9.6, Hemoglobin 7.8, Hematocrit 25.3, Platelets 72, Sodium 146 (corrected 150), Potassium 5.1, Chloride 113, Carbon Dioxide 16.7, BUN 94, Creatinine 4.4, GFR 14, Glucose 282, Lactic Acid 2.2, Uric Acid 14 (from 15.5 yesterday), Calcium 9.7, Phosphorus 7.1, Magnesium 2.3, AST 136, ALT 61, Alkaline Phosphatase 536. 02/03/2025: Patient continues to be sedated, though the ICU team has lowered sedation. He remains very jaundiced and continues on CRRT. The family has requested patient to continued to be on CRRT. No significant changes since yesterday. Labs: Hemoglobin 7.6, Hematocrit 23.5, Platelets 50, Sodium 136, Potassium 3.7, Chloride 95, Carbon Dioxide 29.8, Creatinine 0.8, GFR >60, Uric Acid: 1.1 (no rasburicase needed), Calcium 8.9, Phosphorus 1.9, Magnesium 1.7, Albumin 3.3. 02/06/2025 patient currently seen in ICU. Very jaundiced. On ventilator. On 2 pressors. Labs/medications reviewed. No urine output in the last 48 hours. Patient to receive Tablo and completed at 9 AM today. Poor prognosis-Will hold repeat Tablo today. Dr. Newell at bedside. 02/07/2025 Patient seen and examined in ICU. On two pressors and ventilator. Continues to have no urine output. Per ICU team, family has declined Tablo at this time due to goals of care family discussion. Vitals and labs reviewed. 02/08/2025: Patient seen and examined at bedside in [facility]. Yesterday, decision was made by family to pursue comfort care. Patient was removed from pressors and sedation was subsequently extubated. Currently on morphine gtt. Exam Vital Signs Temp Pulse Resp BP Pulse Ox O2 Del Method FiO2 98.6 F 123 H 28 H 94/61 83 L Room Air 60 02/07/25 20:00 02/07/25 20:00 02/07/25 20:00 02/07/25 20:00 02/07/25 20:00 02/07/25 20:00 02/07/25 13:45 Narrative Exam GENERAL: No acute distress, unresponsive to verbal or tactile stimuli HEENT: Atraumatic PULMONARY: symmetric chest rise ABDOMINAL: soft, non-distended EXTREMITIES: no peripheral edema SKIN: warm and dry, intact, limited on visual exam Objective Labs 02/07/25 04:17 02/07/25 04:17 ABG Interpretation ABG results: 02/01/25 02/01/25 02/02/25 21:24 23:06 00:13 ABG pH 7.12 L* 7.18 L* ABG pCO2 46 50 H ABG pO2 198 H 120 H D ABG HCO3 15 L 19 L ABG O2 Saturation 100 H 99 H ABG Base Excess -14 L -9 L VBG pH 7.18 L VBG pCO2 46 VBG pO2 108 H VBG Base Excess -10 L 02/02/25 02/05/25 02/05/25 09:59 09:30 22:24 ABG pH ABG pCO2 ABG pO2 ABG HCO3 ABG O2 Saturation ABG Base Excess VBG pH 7.39 7.34 7.48 VBG pCO2 31 L D 48 D 44 VBG pO2 53 D 59 H 45 VBG Base Excess -5 L -1 8 H Quality Measures Quality Measures VTE prophylaxis (SCD's) Assessment & Plan Assessment Current Active Medications: Generic Name Dose Route Start Last Admin Trade Name Freq PRN Reason Stop Dose Admin Artificial Tears 1 drop 02/07/25 13:15 Artificial Tears 225 Drop/15 Ml Btl BOTH EYES 03/09/25 13:14 Q4HR PRN Dry eyes Atropine Sulfate 2 drop 02/07/25 13:15 Atropine Sulf Op Maryann 1% 5 Ml Btl SL 03/09/25 13:14 Q4HR PRN SECRETIONS Morphine Sulfate 100 mls @ 1 mls/hr 02/07/25 13:15 02/08/25 08:47 Morphine Sulfate Iv Drip 100mg/100ml IV 02/12/25 13:14 4 mg/hr .Q24H PRN 4 mls/hr PAIN (COMFORT CARE) Titration Protocol 1 MG/HR Lorazepam 1 mg 02/07/25 14:11 02/08/25 08:46 Lorazepam 2 Mg/Ml Vial IVP 02/12/25 14:05 1 mg Q30MIN PRN Administration ANXIETY Morphine Sulfate 2 mg 02/07/25 13:15 02/08/25 08:45 Morphine Sulf Inj 4 Mg/Ml Vial IVP 02/12/25 13:14 2 mg Q30M PRN Administration PAIN Ondansetron HCl 4 mg 02/01/25 21:13 Ondansetron Inj 2 Mg/Ml Inj 2 Ml IVP 03/03/25 21:12 Q6HR PRN NAUSEA OR VOMITING Scopolamine 1 mg 02/07/25 13:15 02/07/25 13:52 Scopolamine 1 Mg Tdsy TOP 03/09/25 13:14 1 mg Q3D ARI Administration Plan 64-year-old male with 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 # Acute kidney injury Patient with RAMSES, metabolic acidosis, hyperkalemia and minimal urinary output in the setting of tumor lysis syndrome. Decided to proceed with dialysis. Previously on 2 pressors-decided to proceeded with Tablo, however now transitioned to comfort care on morphine ggt. Critical care time spent more than 40 minutes regarding plan of care and disease management. Patient MRI showed multiple metastatic disease. # Metastatic lung cancer with mets to the brain-poor prognosis # Anemia # Hypoxic respiratory failure-on ventilator # Hyperuricemia Thank you in allowing participation in patient's care. Plan of care discussed with my attending, Dr. Parker. Luann Lockhart, DO Internal Medicine PGY-1 Attending Provider Attestation/Addendum Patient seen and examined with resident physician Dr. Lockhart. Note reviewed, agree with findings and recommendations. Patient downgraded to medical floor. And comfort care.
[2025-02-08 11:32] VITALS: BP 75/51; PULSE 117; RESP 32; TEMP 36.4; O2SAT 78
--- NOTE | 2025-02-08 14:44 | PC.SS ---
Addendum entered by Tara Roberts 02/08/25 14:47: Patient was extubated yesterday. Original Note: rounding note: Patient now on comfort measures
[2025-02-08] MEDS: Morphine IV Drip 100mg/100ml 100 ML IV (15:38)
[2025-02-08 23:00] VITALS: BP 40/24; PULSE 97; RESP 10; TEMP 36.1; O2SAT 75
--- NOTE | 2025-02-08 23:58 | PD.DPN ---
Documentation for date of: 02/08/25 Pronouncement Note Date and Time of Date of : 02/08/25 Time of : 23:27 Summary Additional details: 02/08/2025 at 23:25PM nurse calls with concerns patient had . Patient examined, no family was in the room, no preacher present. He was not breathing, his head was held back, mouth open, eyes open, appeared ashen, no chest rising. Pupils non reactive to light, no breath sounds auscultated and no heart sounds auscultated for one minute along with no pulses palpated. Patient pronounced at 23:27. I personally called family to notify. Additional Data Confirmation of : no pulse, no respirations, no heart sounds and pupils fixed and dilated Family: contacted Attending/PCP notified?: Yes Attending physician: Omar Arora MD Was code activated?: No Autopsy requested?: No death claim examiner notified?: No Organ bank notified?: No
--- NOTE | 2025-02-09 02:11 | PC.NURSE ---
rn called Jorge Garza(brother)- notified [facility] picked up pt body and belongings sent with [facility].
--- NOTE | 2025-02-09 09:57 | DES_ITS ---
<Statement entered by Liz Peres DO - 02/09/25 16:48> I, Liz Peres DO, attest that I was physically present for the luna portions of the service and evaluated the patient with the resident and I reviewed and discussed the case with the resident and agree with the resident's findings and plans of care as documented above Documentation for date of: 02/09/25 Summary Date and Time Date of admission: 02/02/25 00:14 Summary Hospital Course: Mr. 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 Patient was intubated in the ED and admitted to ICU for AHRF 2/2 PNA and s eptic/hypovolemic shock i/s/o suspected tumor lysis syndrome. Patient's condition was extensively discussed with son, and decision to change patient's code status to DNR was made. Patient was found to have acute renal failure and emergent HD was initiated. Imaging was significant for bilateral pneumonia consolidations with severe left apical pleural disease with elevated procalcitonin. Patient remained sedated and started on pressors and antibiotics. When sedation was weaned to assess mentation, patient exhibited agitation and pain, and sedation was adjusted to level of comfort. Patient continued to have no urine output. On 02/07/25, another goals of care was had which resulted in a consensus to decline CRRT and transition to comfort care. Patient was removed from pressors and sedation and extubated. Patient was downgraded on 01/07 to med surg for comfort care. Patient was comfortably maintained on morphine gtt, morphine IV pushes, ativan, scopolamine patch, eye drops, and suction as needed. Patient remained unresponsive to verbal and noxious stimuli. On 02/08/25 at 23:27 patient was pronounced secondary to cardiopulmonary arrest by Dr. Estes. Patient's son was contacted by Dr. Estes and and informed of patient's . Olga Lidia Linda MD PGY1 Additional Data Attending physician: Liz Peres DO Visit Providers Provider Primary care physician: Physician No Primary/Family Consults: 02/02/25 01:57 Consult to Nephrology Urgent Comment: Uric acid 15.5/ TLS Consulting Provider: Herbert Parker Consult to Oncology Routine Comment: Consulting Provider: Abilio Ugarte Discharge Plan Plan Patient Disposition: Disposition Comment: discharged to [facility] Prescriptions/Referrals Referrals: No Primary/Family,Physician [Primary Care Provider] Patient/Caregiver Discharge Instructions Print Language: Icelandic
== END 2025-02-08 23:27 | disposition expired | DRG 720 ==
LOC: SERX 22:58 → SERHOLD 02-02 00:29 → S2SX 02-02 01:49 → S3NX 02-07 17:34
PROVIDERS: Internal Medicine; Student in an Organized Health Care Education/Training Program; Admitting Provider Student in an Organized Health Care Education/Training Program; Emergency Provider Emergency Medicine; Referring Provider Internal Medicine; Visit Provider Internal Medicine
DX: A41.9 Sepsis, unspecified organism (principal); J96.01 Acute respiratory failure with hypoxia; Z66 Do not resuscitate; C34.90 Malignant neoplasm of unspecified part of unspecified bronchus or lung; E88.3 Tumor lysis syndrome; K76.82 Hepatic encephalopathy; K74.60 Unspecified cirrhosis of liver; E88.09 Other disorders of plasma-protein metabolism, not elsewhere classified; E87.5 Hyperkalemia; E83.39 Other disorders of phosphorus metabolism; E79.0 Hyperuricemia without signs of inflammatory arthritis and tophaceous disease; I95.9 Hypotension, unspecified; C78.7 Secondary malignant neoplasm of liver and intrahepatic bile duct; C79.31 Secondary malignant neoplasm of brain; C79.51 Secondary malignant neoplasm of bone; C79.72 Secondary malignant neoplasm of left adrenal gland; I46.9 Cardiac arrest, cause unspecified; J69.0 Pneumonitis due to inhalation of food and vomit; N17.0 Acute kidney failure with tubular necrosis; D64.9 Anemia, unspecified; D68.9 Coagulation defect, unspecified; D69.59 Other secondary thrombocytopenia; E87.0 Hyperosmolality and hypernatremia; G93.41 Metabolic encephalopathy; I47.10 Supraventricular tachycardia, unspecified; E87.8 Other disorders of electrolyte and fluid balance, not elsewhere classified; Z51.5 Encounter for palliative care; Z92.3 Personal history of irradiation; J15.0 Pneumonia due to Klebsiella pneumoniae; R65.21 Severe sepsis with septic shock; K72.90 Hepatic failure, unspecified without coma; Y95 Nosocomial condition; Z87.891 Personal history of nicotine dependence; Z92.21 Personal history of antineoplastic chemotherapy; E87.20 Acidosis, unspecified; R18.8 Other ascites; R57.1 Hypovolemic shock; Z16.11 Resistance to penicillins; Z79.899 Other long term (current) drug therapy
CPT/HCPCS: 36415; 36600; 51702; 70450; 71045; 71260; 74177; 76705; 80053; 80069; 80202; 81001; 82140; 82803; 83605; 83615; 83690; 83735; 83880; 84100; 84145; 84443; 84484; 84550; 85025; 85379; 85610; 85730; 87040; 87077; 87081; 87186; 87205; 87811; 93005; 94002; 94003; 94640; 96361; 96365; 96375; 99291; 99292; A4314; A4649; J0692; J1643; J1720; J1815; J2060; J2251; J2270; J2470; J2543; J2598; J2704; J3010; J3373; J3475; J3480; J3490; J7030; J7042; J7050; J7120; J7999; P9047; Q9967; A9270; P0947